=== PATIENT | male | born 1945 | race Caucasian/White ===

== ENCOUNTER 2022-12-30 17:13 | Inpatient (IN) ==
[2022-12-30 18:00] LABS: Basophils # (auto) 0.02 K/uL (0-0.2); Basophils % (auto) 0.2 %; Eosinophils # (auto) 0.02 K/uL (0-0.50); Eosinophils % (auto) 0.2 %; Hemoglobin 14.8 g/dl (14.0-18.0); Immature Granulocytes # (auto) 0.05 K/uL (0.01-0.20); Immature Granulocytes % (auto) 0.5 %; Lymphocytes # (auto) 1.58 K/uL (1.2-3.4); Lymphocytes % (auto) 16.6 %; Mean Corpuscular Hemoglobin 30.5 pg (25.0-34.0); Mean Corpuscular Hgb Conc 33.6 g/dL (32.0-36.0); Mean Corpuscular Volume 90.5 fL (80.0-100.0); Mean Platelet Volume 11.8 fL (9.4-12.4); Monocytes % (auto) 12.6 %; Neutrophils # (auto) 6.62 K/uL (1.40-6.50); Neutrophils % (auto) 69.9 %; Platelet Count 181 K/uL (130-400); RDW Coefficient of Variation 13.2 % (11.5-14.5); RDW Standard Deviation 43.9 fL (36.4-46.3); Red Blood Count 4.86 M/uL (4.70-6.10); White Blood Count 9.49 K/ul (4.8-10.8)
[2022-12-30] MEDS ORDERED: ACETAMINOPHEN 1,000 MG/100 ML VIAL IV STA (18:07)
[2022-12-30] MEDS ORDERED: SODIUM CHLORIDE 0.9% 1000ML 2,000 ML IV ONE (18:07)
[2022-12-30] MEDS ORDERED: SODIUM CHLORIDE 0.9% 1000ML 1,000 ML IV ONE (18:07)
[2022-12-30] MEDS ORDERED: ONDANSETRON INJ 2 MG/ML 2 ML VIAL IV STA (18:07)
[2022-12-30] MEDS ORDERED: PIPERACILLIN/TAZOBACTAM 4.5 GM/120 ML BAG IV ONE (18:07)
[2022-12-30] MEDS ORDERED: FAMOTIDINE 20MG IV PUSH 20 MG/5 ML SYR IV STA (18:07)
[2022-12-30 18:24] LABS: Albumin Level 3.9 gm/dl (3.4-5.0); BUN Creatinine Ratio 21.6 (10-20); Bilirubin Direct 0.2 mg/dl (0-0.2); Bilirubin,Total 0.6 mg/dl (0.2-1.0); Calcium 8.8 mg/dl (8.5-10.1); Creatinine Clr Calc Pharmacy 66.2 ml/min; Est GFR (African American) 80.6 ml/min; Est GFR (Non-African American) 69.6 ml/min; INR 2.1 (0.9-1.1); Magnesium 1.5 mg/dl (1.7-2.4); Phosphorus 2.6 mg/dl (2.5-4.9); Potassium 4.1 mmol/L (3.5-5.1); Prothrombin Time 21.5 Seconds (9.0-12.0); Total Protein 7.1 gm/dl (6.0-8.3); Troponin I High Sensitivity 19.6 pg/ml (0-20)
[2022-12-30 18:56] LABS: Adenovirus PCR Not Detected (NotDetected); Bordetella parapertussis PCR Not Detected (NotDetected); Bordetella pertussis PCR Not Detected (NotDetected); Chlamydia pneumoniae PCR Not Detected (NotDetected); Coronavirus 229E PCR Not Detected (NotDetected); Coronavirus CoV-2 (COVID19)PCR Not Detected (NotDetected); Coronavirus HKU1 PCR Not Detected (NotDetected); Coronavirus NL63 PCR Not Detected (NotDetected); Coronavirus OC43PCR Not Detected (NotDetected); Influenza A PCR Not Detected (NotDetected); Influenza B PCR Not Detected (NotDetected); Mycoplasma pneumoniae PCR Not Detected (NotDetected); Parainfluenza Virus 1 PCR Not Detected (NotDetected); Parainfluenza Virus 2 PCR Not Detected (NotDetected); Parainfluenza Virus 3 PCR Not Detected (NotDetected); Parainfluenza Virus 4 PCR Not Detected (NotDetected); Respiratory Syncytial VirusPCR Not Detected (NotDetected); Rhinovirus/Enterovirus PCR Not Detected (NotDetected)
[2022-12-30] MEDS: MAGNESIUM SULFATE / D5W 1 GM/100 ML BAG IV SCH ×2 (19:06→20:42)
[2022-12-30 19:10] LABS: Human Metapneumovirus PCR DETECTED (NotDetected)
--- NOTE | 2022-12-30 19:14 | XRay Report ---
SINGLE VIEW CHEST CLINICAL HISTORY: Sepsis. FINDINGS: An AP, portable, upright chest radiograph is compared to study dated 03/21/2018 and correlat ed with chest CT dated 03/17/2018. The heart is enlarged noting atherosclerotic calcification of the th oracic aorta. The pulmonary vasculature is noncongested. Emphysema and chronic interstitial thickenin g is similar to previous. Scarring/atelectasis is noted at the lung bases. No airspace consolidation or large pleural effusion is identified. No pneumothorax is seen. 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 The bony thorax is grossly intact. IMPRESSION: Cardiomegaly and emphysema with no acute cardiopulmonary abnormality identified. ACT 112: Negative or not required by law. Electronically signed by: Alverto Tello M.D. 12/30/2022 7:13 PM
[2022-12-30 19:26] LABS: Appearance Urine Clear (Clear); Bacteria Urine Automated Negative (Negative); Bilirubin Urine Negative (Negative); Blood Urine Trace (Negative); Color Urine Yellow; Glucose Urine UA 3+ (Negative); Ketones Urine 2+ (Negative); Leukocyte Esterase Urine Negative (Negative); Nitrite Urine Negative (Negative); Protein Urine 2+ (Negative); RBC Urine Automated 0-4 /hpf (0-4); Specific Gravity Urine 1.024 (1.000-1.030); Urobilinogen Urine Negative (Negative)
[2022-12-30] MEDS ORDERED: OPTIRAY 350 100ml IV ONE (19:41)
[2022-12-30] MEDS ORDERED: LEVALBUTEROL HCL 0.63 MG/3 ML NEB NEB STA (20:27)
--- NOTE | 2022-12-30 20:39 | Emergency Department Note ---
Impression & Plan Acute respiratory failure with hypoxia, Human metapneumovirus (hMPV) pneumonia, Pulmonary edema, Atrial fibrillation with rapid ventricular response ED Provider Note NAME: AROLDO SILVERMAN AGE: 77 SEX: M ARRIVES VIA: Ambulance INFORMANT: Patient ED PROVIDER(S): Aric Mendez MD CHIEF COMPLAINT: SOB, fever, cough, referred. PLAN: Disposition: Admit MEDICAL DECISION MAKING: The patient is a pleasant 77-year-old gentleman with a past medical history of atrial fibrillation on warfarin, hypertension, hyperlipidemia, diabetes, PMR on chronic steroids who presents to the emergency department via EMS From his PCPs office for evaluation of nausea and vomiting, cough, congestion and chest tightness has been ongoing for the past several days where he had decreased oral intake and inability to keep his medications down due to nausea and vomiting. He has had a 12 pound weight loss since his last PCP visit. He was noted to be febrile and have an O2 saturation of 84% on room air placed on 6 L OxyMask. On arrival the patient is uncomfortable mild respiratory distress, afebrile with respiratory rate in the upper 20s, heart rate in the 110s in atrial fibrillation with O2 saturation mid 90s on 6 L oxy mask. He appears clinically dry lungs with wheezes and rhonchi of bilateral lung dao. Abdomen with mild epigastric discomfort without discrete tenderness. EKG demonstrates atrial fibrillation without overt acute ischemia. Chest x-ray was negative for acute cardiopulmonary process. WBC, H/H and platelets within normal limits. Chemistry without metabolic acidosis. Bicarbonate is 23. Anion gap 14. Initial lactic acid 2.6 however clear to 1.6 following IV fluid hydration. Magnesium 1.5 with repletion provided. LFTs unremarkable. High-sensitivity troponin 19.6, within normal limits. Procalcitonin is not elevated. UA with 2+ ketones consistent with the patient's clinically dry appearance. Otherwise no evidence of urinary infection. Respiratory viral panel was performed and was positive for human metapneumovirus. CT abdomen pelvis demonstrates bilateral lower lobe opacities consistent with pneumonia given the patient's presentation. Otherwise no acute intra-abdominal process. Patient did have some initial improvement following initial treatment with IV fluids, empiric Zosyn for septic presentation. However I was subsequently notified that the patient did have the development of increased respiratory distress with exam concerning for pulmonary edema. Upon my reevaluation the patient did have new rales of bilateral lung dao. I did perform a limited bedside ultrasound that also showed diffuse B-lines concerning for pulmonary edema. BiPAP was ordered for acute respiratory failure and Xopenex nebulizer for component of bronchospasm. Patient and family at the bedside agree with plan for admission for further management. [facility] who will [facility] the [facility] for [facility]. Triage Nursing notes reviewed and agree them. Prior/outside medical records reviewed Vital Signs: reviewed Differential diagnosis: Sepsis, UTI, pneumonia, metabolic, electrolyte abnormalities, cardiac sources, i ntracerebral event, toxicologic, neurologic, as well as other pathologies. ER treatment provided: See below. Diagnostics interpreted by me: ECG: Atrial fibrillation with RVR, 118 bpm, no overt ST elevation depression, QTc 487, QRS 92 Cardiac Monitoring: An order for continuous cardiac monitoring was placed and demonstrated atrial fibrillation, RVR, 118 bpm. No ectopy. Laboratory studies: See below Imaging studies: See below Consultation(s): Case was [facility]isco[facility], who will evaluate the patient for admission. HPI: The patient is a pleasant 77-year-old gentleman with a past medical history of atrial fibrillation on warfarin, hypertension, hyperlipidemia, diabetes, PMR on chronic steroids who presents to the emergency department via EMS From his PCPs office for evaluation of nausea and vomiting, cough, congestion and chest tightness has been ongoing for the past several days where he had decreased oral intake and inability to keep his medications down due to nausea and vomiting. He has had a 12 pound weight loss since his last PCP visit. He was noted to be febrile and have an O2 saturation of 84% on room air placed on 6 L OxyMask. ROS: See above HPI for pertinent positives & negatives. A total of 10 systems reviewed and were otherwise negative. VITALS:See Below PHYSICAL EXAMINATION: GENERAL: Awake, alert, uncomfortable-appearing, in no distress HENT: Normocephalic, atraumatic. Oropharynx with dry mucous membranes and otherwise unremarkable. EYES: Normal conjunctiva. Sclera non-icteric. NECK: Supple. No nuchal rigidity. FROM. No JVD. RESPIRATORY: Wheezes and rhonchi of bilateral lung dao. CARDIAC: Tachycardic rate, irregular rhythm. Extremities warm and well perfused. Pulses equal. ABDOMEN: Soft, non-distended. Mild epigastric discomfort without discrete tenderness to palpation. No rebound or guarding. No masses. RECTAL: Deferred. MUSCULOSKELETAL: Chest examination reveals no tenderness. The back is symmetrical on inspection without obvious abnormality. There is no CVA tenderness to palpation. No joint edema. LOWER EXTREMITIES: Calves are equal size bilaterally and non-tender. No edema. No discoloration. NEURO: Normal sensorium. No sensory or motor deficits noted. SKIN: Mild skin mottling and tenting. No rash or jaundice noted. ED COURSE: Critical Care: I have personally spent greater than 75 minutes of critical care time in the direct management of this patient. This includes bedside care, interpretation of diagnostic studies, and testing, discussion with consultants, patient, and family members, and other required patient management activities. This 75 minutes is in excess of all separately billable procedures. Aric Mendez MD Past Med/Surg History Medical History Atrial fibrillation follows with Dr Sebastian, no cardioversion. managed with medications. Chronic steroid use Diabetes mellitus, type 2 NIDDM Hyperlipidemia Hypertension On anticoagulant therapy Osteoarthritis Polymyalgia rheumatica takes prednisone BID to manage. Surgical History H/O eye surgery bilateral tear duct procedures to place a "drain" History of arthroscopy of left shoulder History of cataract surgery History of colonoscopy S/P left knee arthroscopy Family History Other No family history of adverse response to anesthesia Social History Smoking Status: Former smoker Second Hand Exposure: No; Do You Dip or Chew Tobacco: No; Tobacco Cessation Education Requested by Patient: No Hx Alcohol Use: Yes Alcohol type: beer Hx Substance Use: No Preferred Language: Nigerien Communication Ability: Effective [employer] Required: No Beliefs That Will Affect Care: None marital status: Current Living Situation: Spouse Other Information That Helps Us Care for You: No Feels Safe at Home: Yes Safety Concerns: Feels Safe At This Time Assistive Devices: Glasses Allergies Allergies Allergy/AdvReac Type Severity Reaction Status Date / Time oxycodone Allergy Intermediate WHEEZING Verified 12/30/22 20:14 Home Meds Home Medications Medication Instructions Recorded Confirmed alendronate 70 mg tablet (Fosamax) 70 mg PO WK 12/25/21 12/30/22 atenolol 50 mg tablet 50 mg PO QAM 12/25/21 12/30/22 atorvastatin 20 mg tablet (Lipitor) 20 mg PO PM 12/25/21 12/30/22 cholecalciferol (vitamin D3) 50 50 mcg PO QAM 12/25/21 12/30/22 mcg (2,000 unit) tablet (Vitamin D3) duloxetine 20 mg capsule,delayed 20 mg PO QPM 12/25/21 12/30/22 release enalapril maleate 2.5 mg tablet 5 mg PO QAM 12/25/21 12/30/22 glipizide 10 mg tablet 20 mg PO BID 12/25/21 12/30/22 metformin 1,000 mg tablet 1,000 mg PO BID 12/25/21 12/30/22 prednisone 5 mg tablet 5 mg PO BID 12/25/21 12/30/22 warfarin 5 mg tablet 5 mg PO [id number] 12/25/21 12/30/22 warfarin 5 mg tablet 7.5 mg PO WK 12/25/21 12/30/22 acetaminophen 500 mg tablet 500 - 1,000 mg PO Q6H PRN Pain 12/30/22 12/30/22 (Tylenol Extra Strength) betamethasone valerate 0.1 % 1 applic topical BID PRN NEEDED 12/30/22 12/30/22 topical ointment dulaglutide 3 mg/0.5 mL 3 mg subcut WK 12/30/22 12/30/22 [facility] Results & Data (ED) Vital Signs Vital Signs - 24 hr 12/30/22 17:13 12/30/22 17:13 12/30/22 17:15 Temperature 36.8 C Temperature Source Oral Pulse Rate 118 H Pulse Rate [Right Finger] Respiratory Rate 24 Respiratory Effort / Characteristics Respiratory Depth Respiratory Pattern Blood Pressure 190/124 H Blood Pressure [Right Arm] Blood Pressure Mean 146 Blood Pressure Mean [Right Arm] Pulse Oximetry 86 L 84 L 97 Oxygen Delivery Method Room Air Room Air Nasal Cannula Oxygen Flow Rate 3 Fraction of Inspired Oxygen Sepsis Recent Fever Within 48 Hours Yes Sepsis New/Unexplained Change in Mental Status N/A Sepsis Action Taken by Nursing Physician Notified 12/30/22 18:11 12/30/22 19:12 12/30/22 19:16 Temperature Temperature Source Pulse Rate Pulse Rate [Right Finger] 110 H 117 H Respiratory Rate 24 27 H Respiratory Effort / Characteristics Non-Labored Spontaneous Respiratory Depth Normal Respiratory Pattern Regular Blood Pressure Blood Pressure [Right Arm] 194/96 H 138/78 Blood Pressure Mean Blood Pressure Mean [Right Arm] 128 98 Pulse Oximetry 93 94 93 Oxygen Delivery Method Nasal Cannula Nasal Cannula Nasal Cannula Oxygen Flow Rate 3 3 3 Fraction of Inspired Oxygen Sepsis Recent Fever Within 48 Hours Sepsis New/Unexplained Change in Mental Status Sepsis Action Taken by Nursing 12/30/22 20:30 12/30/22 21:19 Temperature Temperature Source Pulse Rate 115 H Pulse Rate [Right Finger] Respiratory Rate 31 H Respiratory Effort / Characteristics Non-Labored Spontaneous Respiratory Depth Normal Respiratory Pattern Tachypnea Blood Pressure Blood Pressure [Right Arm] Blood Pressure Mean Blood Pressure Mean [Right Arm] Pulse Oximetry 96 95 Oxygen Delivery Method Oxymask Oxygen Flow Rate 6 Fraction of Inspired Oxygen 40 Sepsis Recent Fever Within 48 Hours Sepsis New/Unexplained Change in Mental Status Sepsis Action Taken by Nursing Laboratory Data Attestation: I reviewed the patient's lab results. 12/30/22 17:19 12/30/22 17:19 Lab Results 12/30/22 12/30/22 12/30/22 Range/Units 17:19 17:19 17:19 WBC 9.49 (4.8-10.8) K/ul RBC 4.86 (4.70-6.10) M/uL Hgb 14.8 (14.0-18.0) g/dl Hct 44.0 (42.0-52.0) % MCV 90.5 (80.0-100.0) fL MCH 30.5 (25.0-34.0) pg MCHC 33.6 (32.0-36.0) g/dL RDW Std Deviation 43.9 (36.4-46.3) fL RDW Coeff of Roverto 13.2 (11.5-14.5) % Plt Count 181 (130-400) K/uL MPV 11.8 (9.4-12.4) fL Immature Gran % (Auto) 0.5 % Neut % (Auto) 69.9 % Lymph % (Auto) 16.6 % [place] % (Auto) 12.6 % Eos % (Auto) 0.2 % Baso % (Auto) 0.2 % Neut # (Auto) 6.62 H (1.40-6.50) K/uL Lymph # (Auto) 1.58 (1.2-3.4) K/uL [place] # (Auto) 1.20 H (0.11-0.59) K/uL Eos # (Auto) 0.02 (0-0.50) K/uL Baso # (Auto) 0.02 (0-0.2) K/uL Immature Gran # (Auto) 0.05 (0.01-0.20) K/uL PT (9.0-12.0) Seconds INR (0.9-1.1) Sodium 133 L (136-145) mmol/L Potassium 4.1 (3.5-5.1) mmol/L Chloride 96 L (98-107) mmol/L Carbon Dioxide 23 (21-32) mmol/L Anion Gap 14 H (3-11) BUN 22 (6-23) mg/dl Creatinine 1.02 (0.6-1.4) mg/dl Est Cr Clr Drug Dosing 66.2 ml/min Est GFR ( Amer) 80.6 ml/min Est GFR (Non-Af Amer) 69.6 ml/min BUN/Creatinine Ratio 21.6 H (10-20) Glucose 304 H* (70-99(Fasting)) mg/dl Lactate (0.4-2.0) mmol/L Calcium 8.8 (8.5-10.1) mg/dl Phosphorus 2.6 (2.5-4.9) mg/dl Magnesium 1.5 L (1.7-2.4) mg/dl Total Bilirubin 0.6 (0.2-1.0) mg/dl Direct Bilirubin 0.2 (0-0.2) mg/dl AST 25 (13-39) U/L ALT 27 (7-52) U/L Alkaline Phosphatase 36 (34-104) U/L Troponin I High Sens 19.6 (0-20) pg/ml B-Natriuretic Peptide (0-100) pg/ml Total Protein 7.1 (6.0-8.3) gm/dl Albumin 3.9 (3.4-5.0) gm/dl Lipase (11-82) U/L Procalcitonin 0.14 (0-0.5) ng/ml Urine Color Urine Appearance (Clear) Urine pH (4.5-7.5) Ur Specific [place] (1.000-1.030) Urine Protein (Negative) Urine Glucose (UA) (Negative) Urine Ketones (Negative) Urine Blood (Negative) Urine Nitrite (Negative) Urine Bilirubin (Negative) Urine Urobilinogen (Negative) Ur Leukocyte Esterase (Negative) Urine WBC (Auto) (0-5) /hpf Urine RBC (Auto) (0-4) /hpf U Hyaline Cast (Auto) (0-5) /lpf U Epithel Cells (Auto) (0-5) /lpf Urine Bacteria (Auto) (Negative) Adenovirus (PCR) (NotDetected) B. pertussis DNA (PCR) (NotDetected) B.parapertussis DNA PCR (NotDetected) C. pneumoniae DNA (PCR) (NotDetected) Coronavirus OC43 (PCR) (NotDetected) Coronavirus HKU1 (PCR) (NotDetected) Coronavirus 229E (PCR) (NotDetected) SARS-CoV-2 (PCR) (NotDetected) Coronavirus NL63 (PCR) (NotDetected) Human Metapneumovir PCR (NotDetected) Influenza Type A (PCR) (NotDetected) Influenza Type B (PCR) (NotDetected) M. pneumoniae (PCR) (NotDetected) Parainfluenza 1 (PCR) (NotDetected) Parainfluenza 2 (PCR) (NotDetected) Parainfluenza 3 (PCR) (NotDetected) Parainfluenza 4 (PCR) (NotDetected) RSV (PCR) (NotDetected) Entero/Rhino (PCR) (NotDetected) 12/30/22 12/30/22 12/30/22 Range/Units 17:19 17:37 17:48 WBC (4.8-10.8) K/ul RBC (4.70-6.10) M/uL Hgb (14.0-18.0) g/dl Hct (42.0-52.0) % MCV (80.0-100.0) fL MCH (25.0-34.0) pg MCHC (32.0-36.0) g/dL RDW Std Deviation (36.4-46.3) fL RDW Coeff of Roverto (11.5-14.5) % Plt Count (130-400) K/uL MPV (9.4-12.4) fL Immature Gran % (Auto) % Neut % (Auto) % Lymph % (Auto) % [place] % (Auto) % Eos % (Auto) % Baso % (Auto) % Neut # (Auto) (1.40-6.50) K/uL Lymph # (Auto) (1.2-3.4) K/uL [place] # (Auto) (0.11-0.59) K/uL Eos # (Auto) (0-0.50) K/uL Baso # (Auto) (0-0.2) K/uL Immature Gran # (Auto) (0.01-0.20) K/uL PT 21.5 H (9.0-12.0) Seconds INR 2.1 H (0.9-1.1) Sodium (136-145) mmol/L Potassium (3.5-5.1) mmol/L Chloride (98-107) mmol/L Carbon Dioxide (21-32) mmol/L Anion Gap (3-11) BUN (6-23) mg/dl Creatinine (0.6-1.4) mg/dl Est Cr Clr Drug Dosing ml/min Est GFR ( Amer) ml/min Est GFR (Non-Af Amer) ml/min BUN/Creatinine Ratio (10-20) Glucose (70-99(Fasting)) mg/dl Lactate 2.6 H* (0.4-2.0) mmol/L Calcium (8.5-10.1) mg/dl Phosphorus (2.5-4.9) mg/dl Magnesium (1.7-2.4) mg/dl Total Bilirubin (0.2-1.0) mg/dl Direct Bilirubin (0-0.2) mg/dl AST (13-39) U/L ALT (7-52) U/L Alkaline Phosphatase (34-104) U/L Troponin I High Sens (0-20) pg/ml B-Natriuretic Peptide (0-100) pg/ml Total Protein (6.0-8.3) gm/dl Albumin (3.4-5.0) gm/dl Lipase (11-82) U/L Procalcitonin (0-0.5) ng/ml Urine Color Urine Appearance (Clear) Urine pH (4.5-7.5) Ur Specific [place] (1.000-1.030) Urine Protein (Negative) Urine Glucose (UA) (Negative) Urine Ketones (Negative) Urine Blood (Negative) Urine Nitrite (Negative) Urine Bilirubin (Negative) Urine Urobilinogen (Negative) Ur Leukocyte Esterase (Negative) Urine WBC (Auto) (0-5) /hpf Urine RBC (Auto) (0-4) /hpf U Hyaline Cast (Auto) (0-5) /lpf U Epithel Cells (Auto) (0-5) /lpf Urine Bacteria (Auto) (Negative) Adenovirus (PCR) Not Detected (NotDetected) B. pertussis DNA (PCR) Not Detected (NotDetected) B.parapertussis DNA PCR Not Detected (NotDetected) C. pneumoniae DNA (PCR) Not Detected (NotDetected) Coronavirus OC43 (PCR) Not Detected (NotDetected) Coronavirus HKU1 (PCR) Not Detected (NotDetected) Coronavirus 229E (PCR) Not Detected (NotDetected) SARS-CoV-2 (PCR) Not Detected (NotDetected) Coronavirus NL63 (PCR) Not Detected (NotDetected) Human Metapneumovir PCR DETECTED A* (NotDetected) Influenza Type A (PCR) Not Detected (NotDetected) Influenza Type B (PCR) Not Detected (NotDetected) M. pneumoniae (PCR) Not Detected (NotDetected) Parainfluenza 1 (PCR) Not Detected (NotDetected) Parainfluenza 2 (PCR) Not Detected (NotDetected) Parainfluenza 3 (PCR) Not Detected (NotDetected) Parainfluenza 4 (PCR) Not Detected (NotDetected) RSV (PCR) Not Detected (NotDetected) Entero/Rhino (PCR) Not Detected (NotDetected) 03/21/23 03/21/23 03/21/23 Range/Units 18:49 20:02 20:52 WBC (4.8-10.8) K/ul RBC (4.70-6.10) M/uL Hgb (14.0-18.0) g/dl Hct (42.0-52.0) % MCV (80.0-100.0) fL MCH (25.0-34.0) pg MCHC (32.0-36.0) g/dL RDW Std Deviation (36.4-46.3) fL RDW Coeff of Roverto (11.5-14.5) % Plt Count (130-400) K/uL MPV (9.4-12.4) fL Immature Gran % (Auto) % Neut % (Auto) % Lymph % (Auto) % [place] % (Auto) % Eos % (Auto) % Baso % (Auto) % Neut # (Auto) (1.40-6.50) K/uL Lymph # (Auto) (1.2-3.4) K/uL [place] # (Auto) (0.11-0.59) K/uL Eos # (Auto) (0-0.50) K/uL Baso # (Auto) (0-0.2) K/uL Immature Gran # (Auto) (0.01-0.20) K/uL PT (9.0-12.0) Seconds INR (0.9-1.1) Sodium (136-145) mmol/L Potassium (3.5-5.1) mmol/L Chloride (98-107) mmol/L Carbon Dioxide (21-32) mmol/L Anion Gap (3-11) BUN (6-23) mg/dl Creatinine (0.6-1.4) mg/dl Est Cr Clr Drug Dosing ml/min Est GFR ( Amer) ml/min Est GFR (Non-Af Amer) ml/min BUN/Creatinine Ratio (10-20) Glucose (70-99(Fasting)) mg/dl Lactate 1.6 (0.4-2.0) mmol/L Calcium (8.5-10.1) mg/dl Phosphorus (2.5-4.9) mg/dl Magnesium (1.7-2.4) mg/dl Total Bilirubin (0.2-1.0) mg/dl Direct Bilirubin (0-0.2) mg/dl AST (13-39) U/L ALT (7-52) U/L Alkaline Phosphatase (34-104) U/L Troponin I High Sens (0-20) pg/ml B-Natriuretic Peptide 96 (0-100) pg/ml Total Protein (6.0-8.3) gm/dl Albumin (3.4-5.0) gm/dl Lipase (11-82) U/L Procalcitonin (0-0.5) ng/ml Urine Color Yellow Urine Appearance Clear (Clear) Urine pH 6.0 (4.5-7.5) Ur Specific [place] 1.024 (1.000-1.030) Urine Protein 2+ H (Negative) Urine Glucose (UA) 3+ H (Negative) Urine Ketones 2+ H (Negative) Urine Blood Trace H (Negative) Urine Nitrite Negative (Negative) Urine Bilirubin Negative (Negative) Urine Urobilinogen Negative (Negative) Ur Leukocyte Esterase Negative (Negative) Urine WBC (Auto) 1-5 (0-5) /hpf Urine RBC (Auto) 0-4 (0-4) /hpf U Hyaline Cast (Auto) 1-5 (0-5) /lpf U Epithel Cells (Auto) 5-10 H (0-5) /lpf Urine Bacteria (Auto) Negative (Negative) Adenovirus (PCR) (NotDetected) B. pertussis DNA (PCR) (NotDetected) B.parapertussis DNA PCR (NotDetected) C. pneumoniae DNA (PCR) (NotDetected) Coronavirus OC43 (PCR) (NotDetected) Coronavirus HKU1 (PCR) (NotDetected) Coronavirus 229E (PCR) (NotDetected) SARS-CoV-2 (PCR) (NotDetected) Coronavirus NL63 (PCR) (NotDetected) Human Metapneumovir PCR (NotDetected) Influenza Type A (PCR) (NotDetected) Influenza Type B (PCR) (NotDetected) M. pneumoniae (PCR) (NotDetected) Parainfluenza 1 (PCR) (NotDetected) Parainfluenza 2 (PCR) (NotDetected) Parainfluenza 3 (PCR) (NotDetected) Parainfluenza 4 (PCR) (NotDetected) RSV (PCR) (NotDetected) Entero/Rhino (PCR) (NotDetected) 12/30/22 Range/Units 20:52 WBC (4.8-10.8) K/ul RBC (4.70-6.10) M/uL Hgb (14.0-18.0) g/dl Hct (42.0-52.0) % MCV (80.0-100.0) fL MCH (25.0-34.0) pg MCHC (32.0-36.0) g/dL RDW Std Deviation (36.4-46.3) fL RDW Coeff of Roverto (11.5-14.5) % Plt Count (130-400) K/uL MPV (9.4-12.4) fL Immature Gran % (Auto) % Neut % (Auto) % Lymph % (Auto) % [place] % (Auto) % Eos % (Auto) % Baso % (Auto) % Neut # (Auto) (1.40-6.50) K/uL Lymph # (Auto) (1.2-3.4) K/uL [place] # (Auto) (0.11-0.59) K/uL Eos # (Auto) (0-0.50) K/uL Baso # (Auto) (0-0.2) K/uL Immature Gran # (Auto) (0.01-0.20) K/uL PT (9.0-12.0) Seconds INR (0.9-1.1) Sodium (136-145) mmol/L Potassium (3.5-5.1) mmol/L Chloride (98-107) mmol/L Carbon Dioxide (21-32) mmol/L Anion Gap (3-11) BUN (6-23) mg/dl Creatinine (0.6-1.4) mg/dl Est Cr Clr Drug Dosing ml/min Est GFR ( Amer) ml/min Est GFR (Non-Af Amer) ml/min BUN/Creatinine Ratio (10-20) Glucose (70-99(Fasting)) mg/dl Lactate (0.4-2.0) mmol/L Calcium (8.5-10.1) mg/dl Phosphorus (2.5-4.9) mg/dl Magnesium (1.7-2.4) mg/dl Total Bilirubin (0.2-1.0) mg/dl Direct Bilirubin (0-0.2) mg/dl AST (13-39) U/L ALT (7-52) U/L Alkaline Phosphatase (34-104) U/L Troponin I High Sens (0-20) pg/ml B-Natriuretic Peptide (0-100) pg/ml Total Protein (6.0-8.3) gm/dl Albumin (3.4-5.0) gm/dl Lipase 12 (11-82) U/L Procalcitonin (0-0.5) ng/ml Urine Color Urine Appearance (Clear) Urine pH (4.5-7.5) Ur Specific [place] (1.000-1.030) Urine Protein (Negative) Urine Glucose (UA) (Negative) Urine Ketones (Negative) Urine Blood (Negative) Urine Nitrite (Negative) Urine Bilirubin (Negative) Urine Urobilinogen (Negative) Ur Leukocyte Esterase (Negative) Urine WBC (Auto) (0-5) /hpf Urine RBC (Auto) (0-4) /hpf U Hyaline Cast (Auto) (0-5) /lpf U Epithel Cells (Auto) (0-5) /lpf Urine Bacteria (Auto) (Negative) Adenovirus (PCR) (NotDetected) B. pertussis DNA (PCR) (NotDetected) B.parapertussis DNA PCR (NotDetected) C. pneumoniae DNA (PCR) (NotDetected) Coronavirus OC43 (PCR) (NotDetected) Coronavirus HKU1 (PCR) (NotDetected) Coronavirus 229E (PCR) (NotDetected) SARS-CoV-2 (PCR) (NotDetected) Coronavirus NL63 (PCR) (NotDetected) Human Metapneumovir PCR (NotDetected) Influenza Type A (PCR) (NotDetected) Influenza Type B (PCR) (NotDetected) M. pneumoniae (PCR) (NotDetected) Parainfluenza 1 (PCR) (NotDetected) Parainfluenza 2 (PCR) (NotDetected) Parainfluenza 3 (PCR) (NotDetected) Parainfluenza 4 (PCR) (NotDetected) RSV (PCR) (NotDetected) Entero/Rhino (PCR) (NotDetected) Administered Medications Doxycycline Hyclate 100 mg/ (Dextrose) 110 mls @ 50 mls/hr IV Q12H [facility] Stop: 01/07/23 00:59 Last Infusion: 12/31/22 02:43 Dose: 0 mls/hr Documented By: Admin: 12/31/22 00:39 Dose: 50 mls/hr Documented By: BETO Insulin Aspart (Insulin Aspart Per Unit) 0 units SC ACHS [facility] Stop: 01/30/23 00:29 Last Admin: 12/31/22 00:33 Dose: 3 units Documented By: BETO Co-signed By: CHRISTAL Insulin Glargine (Lantus Per Unit Charge) 5 units SQ BID [facility] Stop: 01/30/23 00:09 Last Admin: 12/31/22 00:33 Dose: 5 units Documented By: BETO Co-signed By: CHRISTAL Ipratropium [place] (Ipratropium [place] Neb Soln 0.02% 2.5 Ml Vial) 0.5 mg INH QIDR [facility] Stop: 01/30/23 00:09 Last Admin: 12/31/22 00:33 Dose: Not Given Documented By: SHARI Levalbuterol HCl (Levalbuterol 1.25mg/0.5ml Neb) 1.25 mg INH QIDR [facility] Stop: 01/30/23 00:09 Last Admin: 12/31/22 00:33 Dose: Not Given Documented By: NDC Discontinued Medications Sodium Chloride (Nss 1000ml) 2,000 mls @ 999 mls/hr IV .Q2H1M ONE Stop: 12/30/22 20:07 Last Infusion: 12/30/22 20:28 Dose: 999 mls/hr Documented By: Admin: 12/30/22 18:17 Dose: 999 mls/hr Documented By: BRIDGETT Sodium Chloride (Nss 1000ml) 1,000 mls @ 999 mls/hr IV .Q1H1M ONE Stop: 12/30/22 19:07 Last Infusion: 12/30/22 20:04 Dose: 0 mls/hr Documented By: Admin: 12/30/22 19:03 Dose: 999 mls/hr Documented By: NRB Acetaminophen (Ofirmev) 1,000 mg in 100 mls @ 400 mls/hr IV NOW STA Stop: 12/30/22 18:21 Last Infusion: 12/30/22 19:02 Dose: 0 mls/hr Documented By: Admin: 12/30/22 18:17 Dose: 400 mls/hr Documented By: BRIDGETT Famotidine (Pepcid 20mg Iv Push) 20 mg in 5 mls @ 2.5 mls/min IV NOW STA Stop: 12/30/22 18:08 Last Admin: 12/30/22 18:17 Dose: 2.5 mls/min Documented By: BRIDGETT Piperacillin Sod/Tazobactam Sod (Zosyn) 4.5 gm in 120 mls @ 240 mls/hr IV NOW ONE Stop: 12/30/22 18:36 Last Infusion: 12/30/22 18:47 Dose: 0 mls/hr Documented By: Admin: 12/30/22 18:17 Dose: 240 mls/hr Documented By: BRIDGETT Magnesium Sulfate/Dextrose (Magnesium Sulfate / D5w) 1 gm in 100 mls @ 100 mls/hr IV Q1H [facility] Stop: 12/30/22 21:01 Last Infusion: 12/30/22 21:42 Dose: 0 mls/hr Documented By: Admin: 12/30/22 20:42 Dose: 100 mls/hr Documented By: Infusion: 12/30/22 20:06 Dose: 0 mls/hr Documented By: Admin: 12/30/22 19:06 Dose: 100 mls/hr Documented By: GANESH Ioversol (Optiray 350 100ml) 90 ml IV ONCE ONE Stop: 12/30/22 19:42 Last Admin: 12/30/22 19:42 Dose: 90 ml Documented By: ZAC Levalbuterol HCl (Levalbuterol Hcl 0.63 Mg/3 Ml Neb) 0.63 mg NEB NOW STA; Protocol Stop: 12/30/22 20:28 Last Admin: 12/30/22 21:51 Dose: 0.63 mg Documented By: SHARI Methylprednisolone (Methylprednisolone 125 Mg/2 Ml Vial) 60 mg IV NOW STA Stop: 12/30/22 21:40 Last Admin: 12/30/22 22:02 Dose: 60 mg Documented By: GANESH Ondansetron HCl (Ondansetron Inj 2 Mg/Ml 2 Ml Vial) 4 mg IV NOW STA Stop: 12/30/22 18:08 Last Admin: 12/30/22 18:17 Dose: 4 mg Documented By: BRIDGETT Imaging Data Radiologist's Impression: Chest X-Ray 12/30/22 17:29 SINGLE VIEW CHEST CLINICAL HISTORY: Sepsis. FINDINGS: An AP, portable, upright chest radiograph is compared to study dated 03/21/2018 and correlated with chest CT dated 03/17/2018. The heart is enlarged noting atherosclerotic calcification of the thoracic aorta. The pulmonary vasculature is noncongested. Emphysema and chronic interstitial thickening is similar to previous. Scarring/atelectasis is noted at the lung bases. No airspace consolidation or large pleural effusion is identified. No pneumothorax is seen. The skeletal structures are osteopenic. The bony thorax is grossly intact. IMPRESSION: Cardiomegaly and emphysema with no acute cardiopulmonary abnormality identified. ACT 112: Negative or not required by law. Electronically signed by: Alverto Tello M.D. 12/30/2022 7:13 PM Abdomen/Pelvis CT 12/30/22 18:07 Exam(s): CT ABDOMEN + PELVIS With Contrast IV Amt: 90 ml optiray EXAM: CT Abdomen and Pelvis With Intravenous Contrast CLINICAL HISTORY: Reason for exam: sepsis, vomiting. TECHNIQUE: Axial computed tomography images of the abdomen and pelvis with intravenous contrast. CTDI is 24.36 mGy and DLP is 1232.74 mGy-cm. Automated exposure control was utilized for the study. A dose lowering technique was utilized adhering to the principles of ALARA. CONTRAST: Patient received 90 ml optiray of IV contrast COMPARISON: CT abdomen and pelvis 01/13/2015. FINDINGS: Artifacts: Examination is degraded by extensive patient motion. Lung bases: Opacities in the lungs. ABDOMEN: Liver: Hepatic steatosis. Gallbladder and bile ducts: Unremarkable. No calcified stones. No ductal dilation. Pancreas: Unremarkable. No mass. No ductal dilation. Spleen: Unremarkable. No splenomegaly. Adrenals: Unremarkable. No mass. Kidneys and ureters: Perinephric stranding, unchanged from prior examination. No hydronephrosis. Stomach and bowel: Moderate colonic stool burden. No obstruction. No mucosal thickening. PELVIS: Appendix: No findings to suggest acute appendicitis. Bladder: Unremarkable. No mass. Reproductive: Unremarkable as visualized. ABDOMEN and PELVIS: Intraperitoneal space: Unremarkable. No free air. No significant fluid collection. Bones/joints: Degenerative change throughout the spine. No acute fracture. No dislocation. Soft tissues: Unremarkable. Vasculature: Atherosclerotic calcifications in the abdominal aorta and branches. No abdominal aortic aneurysm. Lymph nodes: Unremarkable. No enlarged lymph nodes. IMPRESSION: 1. Opacities in the lungs. This may represent pneumonia in appropriate clinical scenario. 2. Moderate colonic stool burden. Recommend correlation for constipation. 3. Hepatic steatosis. Electronically signed by: Jermaine Yang MD 12/30/22 20:51 PM Discharge Plan Visit Data Chief Complaint: Illness Stated Complaint: N/V, SOB ED Provider: Aric Mendez Discharge Problem: Acute respiratory failure with hypoxia, Human metapneumovirus (hMPV) pneumonia, Pulmonary edema, Atrial fibrillation with rapid ventricular response Patient Disposition: Admitted As Inpatient Discharge Instructions Interventions: ED Discharge Assessment Last Done: 12/30/22 23:53
--- NOTE | 2022-12-30 20:52 | CT Scan Report ---
Exam(s): CT ABDOMEN + PELVIS With Contrast IV Amt: 90 ml optiray EXAM: CT Abdomen and Pelvis With Intravenous Contrast CLINICAL HISTORY: Reason for exam: sepsis, vomiting. TECHNIQUE: Axial computed tomography images of the abdomen and pelvis with intravenous contrast. CTDI is 24.36 mGy and DLP is 1232.74 mGy-cm. Automated exposure control was utilized for the study. A dose lowering technique was utilized adhering to the principles of ALARA. CONTRAST: Patient received 90 ml optiray of IV contrast COMPARISON: CT abdomen and pelvis 01/13/2015. FINDINGS: Artifacts: Examination is degraded by extensive patient motion. Lung bases: Opacities in the lungs. ABDOMEN: Liver: Hepatic steatosis. Gallbladder and bile ducts: Unremarkable. No calcified stones. No ductal dilation. Pancreas: Unremarkable. No mass. No ductal dilation. Spleen: Unremarkable. No splenomegaly. Adrenals: Unremarkable. No mass. Kidneys and ureters: Perinephric stranding, unchanged from prior examination. No hydronephrosis. Stomach and bowel: Moderate colonic stool burden. No obstruction. No mucosal thickening. PELVIS: Appendix: No findings to suggest acute appendicitis. Bladder: Unremarkable. No mass. Reproductive: Unremarkable as visualized. ABDOMEN and PELVIS: Intraperitoneal space: Unremarkable. No free air. No significant fluid collection. Bones/joints: Degenerative change throughout the spine. No acute fracture. No dislocation. Soft tissues: Unremarkable. Vasculature: Atherosclerotic calcifications in the abdominal aorta and branches. No abdominal aortic aneurysm. Lymph nodes: Unremarkable. No enlarged lymph nodes. IMPRESSION: 1. Opacities in the lungs. This may represent pneumonia in appropriate clinical scenario. 2. Moderate colonic stool burden. Recommend correlation for constipation. 3. Hepatic steatosis. Electronically signed by: Jermaine Yang MD 12/30/22 20:51 PM
[2022-12-30] MEDS ORDERED: methylPREDNISolone 125 MG/2 ML VIAL IV STA (21:39)
--- NOTE | 2022-12-31 00:08 | History and Physical Report ---
DATE OF ADMISSION: 12/30/2022. CHIEF COMPLAINT: Shortness of breath. HISTORY OF PRESENT ILLNESS: A 77-year-old male with past medical history significant for type 2 diabetes, hyperlipidemia, diabetic retinopathy, both eyes; history of permanent atrial fibrillation, hypertension, polymyalgia rheumatica, steroid-induced osteoporosis, presents with shortness of breath and cough. The patient's is in the room. As per since last Thursday, the patient started developing cough, bringing up some yellowish phlegm and fever, and short of breath and last night, his temperature was 102, went to PCP's office today . Having poor appetite and today morning has nausea, vomiting and his heart rate was high when they are in the PCP's office and because he was volume depleted with nausea, vomiting, he was advised to come to the ER. In the ER when he came in, he was on 6 liters of oxygen. His lactic acid was elevated and he was tachycardic. Lactic acid was 2.6. He was given 2 liters of IV fluids, and became more short of breath requiring placement of BiPAP. Chest x- ray was done in the ER. It does not show any obvious infection. CT of abdomen and pelvis was done because of nausea and vomiting showing opacities in the lungs, may represent pneumonia in appropriate clinical settings, moderate colonic stool burden. Respiratory BioFire came back positive for metapneumovirus. The patient also has some rhonchi and wheezing on exam and the patient also has remote history of smoking, quit smoking in 1988, but prior to that smoked 1 pack a day for 30 years. Currently, he is placed on BiPAP, says after placing BiPAP, he is feeling better, but his chest hurts when he is coughing. His whole body hurts,has some belly discomfort. Normal bowel and bladder movements ALLERGIES: OXYCODONE. PAST MEDICAL HISTORY: As mentioned above. PAST SURGICAL HISTORY: Colonoscopy, exploration of tear ducts, knee arthroscopy, removal of nasal polyps, bilateral cataract surgery, repair of left rotator cuff. MEDICATIONS: The patient is on Tylenol Extra Strength 500-1000 mg p.o. q. 6 hours p.r.n., alendronate 70 mg p.o. weekly, atenolol 50 mg p.o. a.m., Lipitor 20 mg p.o. a.m., betamethasone topical b.i.d. p.r.n., vitamin D 50 mcg p.o. a.m., Trulicity 3 mg subcutaneous weekly, duloxetine 20 mg p.o. p.m., enalapril 5 mg p.o. a.m., glipizide 20 mg p.o. b.i.d., metformin 1000 mg p.o. b.i.d., prednisone 5 mg p.o. b.i.d., warfarin 5 mg p.o. 6 times a week and warfarin 7.5 mg p.o. one time a week. FAMILY HISTORY: Significant for father had heart failure with MO; brother had obesity; mother had stroke; sister has ovarian cancer. SOCIAL HISTORY: . Quit smoking in 1988, smoked 1 pack a day for 30 years. Alcohol occasional. No drug use. REVIEW OF SYSTEMS: As per HPI. Rest of the review of systems is negative. PHYSICAL EXAMINATION: GENERAL: The patient is of moderate build, not in acute distress. VITAL SIGNS: Temperature 36.8, pulse 102, respiratory rate 26, blood pressure 138/78, oxygen 95% on BiPAP. HEENT: Pupils equal, round and reactive to light. The patient has been placed on BiPAP. NECK: No obvious neck masses. CARDIOVASCULAR: S1 and S2 heard. Tachycardia. No murmurs. RESPIRATORY SYSTEM: Normal AP diameter. No accessory muscle use. Bilateral wheezing and rhonchi heard. ABDOMEN: Soft, bowel sounds present, nontender, no distention. CENTRAL NERVOUS SYSTEM: Alert and awake. Speech is okay. No obvious facial droop seen. Obeys commands. Moves extremities. EXTREMITIES: No obvious edema or erythema seen. LABORATORY DATA: WBC 9.4, hemoglobin 14.8, hematocrit 44, platelets 181. PT is 21.5, INR 2.1. Sodium 133, potassium 4.1, chloride 96, CO2 of 23, BUN 22, creatinine 1.2, serum glucose 204, lactate 1.6, calcium 8.8, phosphorus 2.6, magnesium 1.5, total bilirubin 0.6, direct bilirubin 0.2, AST 25, ALT 27, alkaline phosphatase 36. Troponin I high sensitivity 19.6. BNP 96. Procalcitonin 0.14. Lipase 12. Urinalysis, +2 ketones, +2 glucose. Respiratory BioFire positive for human metapneumovirus. IMAGING DATA: CT abdomen and pelvis shows opacities in the lungs, which may represent pneumonia in appropriate settings. Moderate stool burden. Chest x- ray, no acute findings. EKG: Atrial fibrillation with rapid ventricular respiratory rate of 118. Nonspecific T-wave abnormalities. ASSESSMENT AND PLAN: This is a 77-year-old male, presents with shortness of breath and acute respiratory distress. 1. Acute respiratory distress requiring BiPAP: When he came in, he was on 6 liters of oxygen. He has respiratory BioFire positive for human metapneumovirus, possible acute bronchitis,possible COPD exacerbation, history of smoking 30-pack year, but quit in 1988. On exam, has wheezing or rhonchi, .Starting on IV doxycycline, IV Solu-Medrol and nebs around the clock and p.r.n. Continue BiPAP for now. Closely monitor in the tele floor. We will also rule out CHFas he became more sob after 2 L fluid. Will get an echocardiogram. If respiratory symptoms are not improving, we will consider consulting Cardiology / Pulmonary. 2. History of atrial fibrillation. Continue atenolol with holding parameters. The patient is on Coumadin. INR is therapeutic at 2.1. 3. Hypertension: Continue atenolol with hold parameters. Holding Enalapril for now because of ongoing infection. We will monitor the blood pressure. 4. History of diabetes: Hold his glipizide, metformin. Placed on Lantus 5 units b.i.d. and insulin sliding scale. Follow HbA1c level. Follow the blood sugar closely as the patient is on IV steroids. 5. History of polymyalgia rheumatica: He is on prednisone at home. We will hold p.o. prednisone as the patient is currently getting IV steroids. 6. Deep venous thrombosis prophylaxis: On Coumadin, INR therapeutic. DISPOSITION: Closely monitor in tele floor. Level 1 full code. Expect to discharge home and follow with family doctor. Job ID: [id number] [facility]
[2022-12-31] MEDS ORDERED: LEVALBUTEROL HCL 1.25 MG/3 ML NEB NEB PRN (00:10)
[2022-12-31] MEDS ORDERED: BETAMETHASONE VAL 0.1% OINT 15 GM TUBE EXT PRN (00:10)
[2022-12-31] MEDS ORDERED: NITROGLYCERIN SL 0.4 MG/TAB TAB SL PRN (00:10)
[2022-12-31] MEDS ORDERED: GLUCOSE 10 TAB/TUBE PO PRN (00:10)
[2022-12-31] MEDS ORDERED: DEXTROSE 50% 50 ML SYRINGE IV PRN (00:10)
[2022-12-31] MEDS ORDERED: ONDANSETRON INJ 2 MG/ML 2 ML VIAL IV PRN (00:10)
[2022-12-31] MEDS ORDERED: LANTUS PER UNIT CHARGE SQ SCH ×4 (00:10→21:00)
[2022-12-31] MEDS ORDERED: GLUCAGON FOR INJ 1 MG VIAL SQ PRN (00:10)
[2022-12-31] MEDS ORDERED: CARBOHYDRATES FOR HYPOGLYCEMIA PO PRN (00:10)
[2022-12-31] MEDS ORDERED: GLUCOSE 40% GEL 15 GM TUBE PO PRN (00:10)
[2022-12-31] MEDS: INSULIN ASPART PER UNIT CHARGE SC SCH ×5 (00:33→20:13)
[2022-12-31] MEDS: LEVALBUTEROL 1.25MG/0.5ML NEB INH SCH ×6 (00:33→23:46)
[2022-12-31] MEDS: IPRATROPIUM BROMIDE NEB SOLN 0.02% 2.5 ML VIAL INH SCH ×6 (00:33→23:46)
[2022-12-31] MEDS: DOXYCYCLINE HYCLATE 100 MG in DEXTROSE 5% 100 ML IV SCH ×2 (00:39→13:51)
[2022-12-31 05:48] LABS: Hematocrit (blood only) 42.9 % (42.0-52.0); Mean Corpuscular Hemoglobin 30.7 pg (25.0-34.0); Mean Corpuscular Hgb Conc 32.6 g/dL (32.0-36.0); Mean Corpuscular Volume 94.1 fL (80.0-100.0); Mean Platelet Volume 11.1 fL (9.4-12.4); Platelet Count 166 K/uL (130-400); RDW Coefficient of Variation 13.2 % (11.5-14.5); RDW Standard Deviation 45.3 fL (36.4-46.3); Red Blood Count 4.56 M/uL (4.70-6.10); White Blood Count 10.35 K/ul (4.8-10.8)
[2022-12-31 06:01] LABS: Creatinine Clr Calc Pharmacy 56.7 ml/min; Est GFR (African American) 66.9 ml/min; Est GFR (Non-African American) 57.8 ml/min; Magnesium 2.1 mg/dl (1.7-2.4)
[2022-12-31] MEDS: ENOXAPARIN INJ 40 MG/0.4 ML SYR SQ SCH (06:01)
[2022-12-31 06:07] LABS: Basophils # (auto) 0.01 K/uL (0-0.2); Basophils % (auto) 0.1 %; Echinocytes 1+; Immature Granulocytes # (auto) 0.06 K/uL (0.01-0.20); Immature Granulocytes % (auto) 0.6 %; Lymphocytes # (auto) 0.36 K/uL (1.2-3.4); Lymphocytes % (auto) 3.5 %; Monocytes # (auto) 0.57 K/uL (0.11-0.59); Monocytes % (auto) 5.5 %; Neutrophils # (auto) 9.35 K/uL (1.40-6.50); Neutrophils % (auto) 90.3 %
[2022-12-31 06:09] LABS: Troponin I High Sensitivity 31.8 pg/ml (0-20)
[2022-12-31 06:13] LABS: INR 1.9 (0.9-1.1); Prothrombin Time 19.6 Seconds (9.0-12.0)
[2022-12-31] MEDS: CHOLECALCIFEROL 1,000 UNITS 25 MCG TAB PO SCH (08:10)
[2022-12-31] MEDS: methylPREDNISolone 40 MG in SYRINGE 0 ML IV SCH ×3 (08:11→20:16)
[2022-12-31] MEDS ORDERED: POLYETHYLENE (MIRALAX) 17 GM PACK PO PRN (08:29)
[2022-12-31] MEDS ORDERED: DOCUSATE SODIUM 100 MG CAP PO PRN (08:30)
[2022-12-31] MEDS ORDERED: ATENOLOL 50 MG TABLET PO SCH (09:00)
[2022-12-31] MEDS ORDERED: XOPENEX/ATROVENT 1.25mg/0.5MG NEB COMBO NEB SCH (09:00)
[2022-12-31] MEDS: ACETAMINOPHEN 325 MG TAB PO PRN (09:08)
[2022-12-31 09:21] LABS: Estimated Average Glucose 229 mg/dl; Hemoglobin A1C 9.6 % (4.5-5.6)
--- NOTE | 2022-12-31 12:00 | Electrocardiogram Report ---
Test Reason : Blood Pressure : / mmHG Vent. Rate : 118 BPM Atrial Rate : 079 BPM P-R Int : 000 ms QRS Dur : 092 ms QT Int : 348 ms P-R-T Axes : 000 003 002 degrees QTc Int : 487 ms Atrial fibrillation with rapid ventricular response and aberrant conduction Cannot rule out Inferior infarct (cited on or before 21-MAR-2018) Abnormal ECG When compared with ECG of 21-MAR-2018 15:39, Vent. rate has increased BY 42 BPM Nonspecific T wave abnormality has replaced inverted T waves in Inferior leads Confirmed by Brenden Shah ([id number]) on 12/31/2022 12:00:21 PM Referred By: REFERRED SELF Confirmed By:Marco Shah
[2022-12-31] MEDS ORDERED: LANTUS PER UNIT CHARGE SQ ONE (14:17)
[2022-12-31] MEDS ORDERED: WARFARIN SOD 7.5 MG TAB PO SCH (16:00)
[2022-12-31] MEDS ORDERED: WARFARIN SOD 5 MG TAB PO SCH (16:00)
--- NOTE | 2022-12-31 16:07 | Hospitalist Progress Note ---
Date of Service December 31, 2022 Assessment & Plan (1) Acute respiratory failure with hypoxia: Plan: Patient is a 77 yr male who presents with shortness of breath and acute respiratory distress. Acute respiratory failure with hypoxia Acute bronchitis likely secondary to metapneumovirus infection Possible underlying COPD with exacerbation (H/O [id number] smoking) --CXR:Cardiomegaly and emphysema with no acute cardiopulmonary abnormality identified. Respiratory panel positive for human metapneumovirus +Family contact with similar symptoms -ECHO: Moderate concentric LVH, EF 60 to 65%, no segmental left ventricle wall motion abnormality. Aortic valve sclerosis mild, without significant aortic valvular stenosis. Normal procalcitonin Wean off of supplemental oxygen as able Continue doxycycline, Solu-Medrol Taper down steroids as able Continue nebs Will need PFTs as outpatient A-fib RVR Likely secondary to above H/O A-fib Currently rate is controlled Continue atenolol Continue Coumadin Monitor INR 1.9 We will consider to change atenolol to metoprolol if heart rate remains uncontrolled Mild troponin elevation Secondary to A-fib RVR, Type II [place] Patient denies chest pain Hypertension: Continue atenolol, CLYDE inhibitor Monitor DM II Uncontrolled HbA1C: 9.6 Hold glipizide, metformin Continue Insulin per protocol Monitor BGs H/O Polymyalgia rheumatica on chronic prednisone DVT Px: on Coumadin Code Status Full Code . Admission and Anticipated Discharge Date Admission Date: December 30, 2022 Subjective Patient is seen and examined at bedside Cough, dyspnea slightly better today Denies any nausea, vomiting, diarrhea, chest pain, dizziness today Also reports headache earlier this morning Saturating well on 2 L supplemental oxygen Review of Systems Review of Systems: All systems reviewed & are unremarkable except as noted in Subjective Physical Exam Physical Exam: Physical Exam: Vitals signs as noted above General Appearance:Moderately built and nourished, no apparent distress Head: normocephalic, Atraumatic Eyes: normal inspection, EOMI Neck: supple, Trachea midline Respiratory/Chest: Coarse breath sounds, scattered wheezes, No accessory muscle use Cardiovascular: Irregularly irregular, No murmur Abdomen/GI:Soft, Non tender, Bowel sounds present Extremities/Musculoskeletal:normal inspection, no edema Neurologic/Psych:AAOX3, grossly no focal neurological deficits, mild hearing impairment Skin: normal color, warm Results & Data Results & Data Vital Signs (Past 12 Hours) Vital Signs Temp Pulse Pulse Resp BP Pulse Ox O2 Del Method 12/31/22 14:59 93 H 18 96 Nasal Cannula 12/31/22 12:00 36.8 C 83 18 140/59 L Room Air 12/31/22 12:00 36.5 C 95 H 18 145/70 H 97 Room Air 12/31/22 08:00 95 H 12/31/22 11:25 Nasal Cannula 12/31/22 10:48 84 18 97 Nasal Cannula 12/31/22 08:00 36.7 C 100 H 20 135/74 Room Air 12/31/22 07:01 110 H 16 94 Nasal Cannula 12/31/22 04:09 98 H 21 96 O2 Flow Rate FiO2 12/31/22 14:59 2 12/31/22 12:00 12/31/22 12:00 12/31/22 08:00 12/31/22 11:25 5 12/31/22 10:48 4 12/31/22 08:00 12/31/22 07:01 4 12/31/22 04:09 30 Laboratory Results Short CBC 12/30/22 12/31/22 Range/Units 17:19 05:25 WBC 9.49 10.35 (4.8-10.8) K/ul Hgb 14.8 14.0 (14.0-18.0) g/dl Hct 44.0 42.9 (42.0-52.0) % Plt Count 181 166 (130-400) K/uL BMP 12/30/22 12/31/22 17:19 05:25 Sodium 133 L 134 L Potassium 4.1 5.0 D Chloride 96 L 100 Carbon Dioxide 23 27 BUN 22 19 Creatinine 1.02 1.19 Glucose 304 H* 255 H Calcium 8.8 8.0 L Liver Function 12/30/22 Range/Units 17:19 Total Bilirubin 0.6 (0.2-1.0) mg/dl Direct Bilirubin 0.2 (0-0.2) mg/dl AST 25 (13-39) U/L ALT 27 (7-52) U/L Alkaline Phosphatase 36 (34-104) U/L Albumin 3.9 (3.4-5.0) gm/dl Urine 12/30/22 Range/Units 18:49 Urine Color Yellow Urine Appearance Clear (Clear) Urine pH 6.0 (4.5-7.5) Ur Specific [place] 1.024 (1.000-1.030) Urine Protein 2+ H (Negative) Urine Glucose (UA) 3+ H (Negative)
[2022-12-31] MEDS: ENALAPRIL MALEATE 5 MG TAB PO SCH (17:32)
[2022-12-31] MEDS: LANTUS PER UNIT CHARGE SQ SCH (20:13)
[2022-12-31] MEDS: ATORVASTATIN 20 MG TAB PO SCH (20:15)
[2022-12-31] MEDS: DULoxetine HCL 20 MG CAP PO SCH (20:15)
[2023-01-01] MEDS: ACETAMINOPHEN 325 MG TAB PO PRN (00:11)
[2023-01-01] MEDS: DOXYCYCLINE HYCLATE 100 MG in DEXTROSE 5% 100 ML IV SCH ×2 (01:48→12:50)
[2023-01-01] MEDS: ENOXAPARIN INJ 40 MG/0.4 ML SYR SQ SCH (06:30)
[2023-01-01 06:59] LABS: BUN Creatinine Ratio 22.6 (10-20); Calcium 8.4 mg/dl (8.6-10.3); Creatinine Clr Calc Pharmacy 63.3 ml/min; Est GFR (Non-African American) 66.4 ml/min; Potassium 3.9 mmol/L (3.5-5.1)
[2023-01-01] MEDS: LEVALBUTEROL 1.25MG/0.5ML NEB INH SCH (07:01)
[2023-01-01] MEDS: IPRATROPIUM BROMIDE NEB SOLN 0.02% 2.5 ML VIAL INH SCH ×4 (07:01→19:13)
[2023-01-01 07:04] LABS: INR 2.6 (0.9-1.1); Prothrombin Time 26.1 Seconds (9.0-12.0)
[2023-01-01] MEDS: INSULIN ASPART PER UNIT CHARGE SC SCH ×4 (08:59→21:22)
[2023-01-01] MEDS: LANTUS PER UNIT CHARGE SQ SCH ×2 (08:59→21:21)
[2023-01-01] MEDS ORDERED: METOPROLOL TARTRATE 1 MG/ML VIAL IV PRN (09:00)
[2023-01-01] MEDS: CHOLECALCIFEROL 1,000 UNITS 25 MCG TAB PO SCH (09:03)
[2023-01-01] MEDS: ENALAPRIL MALEATE 5 MG TAB PO SCH (09:04)
[2023-01-01] MEDS: METOPROLOL TARTRATE 25 MG TAB PO SCH ×2 (10:28→21:07)
[2023-01-01] MEDS: methylPREDNISolone 40 MG in SYRINGE 0 ML IV SCH ×2 (10:30→21:07)
[2023-01-01] MEDS: LEVALBUTEROL HCL 0.63 MG/3 ML NEB NEB SCH ×3 (10:44→19:13)
[2023-01-01] MEDS: guaiFENesin 600 MG TABCR PO SCH ×2 (14:05→21:06)
[2023-01-01] MEDS ORDERED: WARFARIN SOD 5 MG TAB PO SCH (16:00)
--- NOTE | 2023-01-01 17:11 | Hospitalist Progress Note ---
Date of Service January 01, 2023 Assessment & Plan (1) Acute respiratory failure with hypoxia: Plan: Patient is a 77 yr male who presents with shortness of breath and acute respiratory distress. Acute respiratory failure with hypoxia Acute bronchitis likely secondary to metapneumovirus infection Possible underlying COPD with exacerbation (H/O 65-[id number] smoking) --CXR:Cardiomegaly and emphysema with no acute cardiopulmonary abnormality identified. Respiratory panel positive for human metapneumovirus +Family contact with similar symptoms -ECHO: Moderate concentric LVH, EF 60 to 65%, no segmental left ventricle wall motion abnormality. Aortic valve sclerosis mild, without significant aortic valvular stenosis. Normal procalcitonin Wean off of supplemental oxygen as able Continue doxycycline, Solu-Medrol Taper down steroids as able Continue nebs Will need PFTs as outpatient Added flutter, Mucinex A-fib RVR Likely secondary to above H/O A-fib Currently rate is controlled Atenolo>>changed to Metoprolol Continue Coumadin Monitor INR 1.9>2.6 Mild troponin elevation Secondary to A-fib RVR, Type II [place] Patient denies chest pain Hypertension: Continue atenolol, CLYDE inhibitor Monitor DM II Uncontrolled HbA1C: 9.6 Hold glipizide, metformin Continue Insulin per protocol Monitor BGs H/O Polymyalgia rheumatica on chronic prednisone DVT Px: on Coumadin Code Status Full Code . Admission and Anticipated Discharge Date Admission Date: December 30, 2022 Subjective Patient is seen and examined at bedside States having poor sleep overnight Still has Cough, dyspnea on exertion Denies any nausea, vomiting, diarrhea, chest pain, dizziness today Saturating low 90s on room air Review of Systems Review of Systems: All systems reviewed & are unremarkable except as noted in Subjective Physical Exam Physical Exam: Physical Exam: Vitals signs as noted above General Appearance:Moderately built and nourished, no apparent distress Head: normocephalic, Atraumatic Eyes: normal inspection, EOMI Neck: supple, Trachea midline Respiratory/Chest: Coarse breath sounds, scattered Rhonchi, No accessory muscle use Cardiovascular: Irregularly irregular, tachycardia, no murmur Abdomen/GI:Soft, Non tender, Bowel sounds present Extremities/Musculoskeletal:normal inspection, no edema Neurologic/Psych:AAOX3, grossly no focal neurological deficits, mild hearing impairment Skin: normal color, warm Results & Data Results & Data Vital Signs (Past 12 Hours) Vital Signs Temp Pulse Pulse Resp BP Pulse Ox O2 Del Method 01/01/23 16:00 103 H 01/01/23 16:03 36.6 C 102 H 18 148/87 H 92 Room Air 01/01/23 14:49 103 H 18 95 Room Air 01/01/23 12:14 36.6 C 106 H 18 151/94 H 94 Room Air 01/01/23 10:44 101 H 20 95 Room Air 01/01/23 09:00 94 H 01/01/23 08:03 36.6 C 116 H 20 135/81 92 Room Air 01/01/23 07:02 90 18 96 Nasal Cannula O2 Flow Rate 01/01/23 16:00 01/01/23 16:03 01/01/23 14:49 01/01/23 12:14 01/01/23 10:44 01/01/23 09:00 01/01/23 08:03 01/01/23 07:02 1.5 Laboratory Results BMP 01/01/23 06:25 Sodium 136 Potassium 3.9 D Chloride 102 Carbon Dioxide 25 BUN 24 H Creatinine 1.06 Glucose 276 H Calcium 8.4 L
[2023-01-01] MEDS: DULoxetine HCL 20 MG CAP PO SCH (21:06)
[2023-01-01] MEDS: ATORVASTATIN 20 MG TAB PO SCH (21:06)
[2023-01-02] MEDS: DOXYCYCLINE HYCLATE 100 MG in DEXTROSE 5% 100 ML IV SCH (01:18)
[2023-01-02] MEDS ORDERED: POTASSIUM CHLORIDE CRTAB 20 MEQ TABCR PO STA (05:27)
[2023-01-02] MEDS ORDERED: METOPROLOL TARTRATE 25 MG TAB PO SCH (05:30)
[2023-01-02] MEDS: ENOXAPARIN INJ 40 MG/0.4 ML SYR SQ SCH (05:47)
[2023-01-02 06:10] LABS: Hematocrit (blood only) 41.5 % (42.0-52.0); Hemoglobin 13.7 g/dl (14.0-18.0); Mean Corpuscular Hemoglobin 30.1 pg (25.0-34.0); Mean Corpuscular Volume 91.2 fL (80.0-100.0); Mean Platelet Volume 11.5 fL (9.4-12.4); Platelet Count 184 K/uL (130-400); RDW Coefficient of Variation 13.2 % (11.5-14.5); RDW Standard Deviation 44.9 fL (36.4-46.3); Red Blood Count 4.55 M/uL (4.70-6.10); White Blood Count 11.63 K/ul (4.8-10.8)
[2023-01-02 06:26] LABS: BUN Creatinine Ratio 31.2 (10-20); Calcium 8.6 mg/dl (8.6-10.3); Creatinine Clr Calc Pharmacy 72.2 ml/min; Est GFR (African American) 90.2 ml/min; Est GFR (Non-African American) 77.8 ml/min; Magnesium 1.9 mg/dl (1.7-2.4); Potassium 4.9 mmol/L (3.5-5.1)
[2023-01-02] MEDS: LEVALBUTEROL HCL 0.63 MG/3 ML NEB NEB SCH ×4 (06:58→19:11)
[2023-01-02] MEDS: IPRATROPIUM BROMIDE NEB SOLN 0.02% 2.5 ML VIAL INH SCH ×4 (06:58→19:11)
[2023-01-02 07:25] LABS: INR 3.8 (0.9-1.1); Prothrombin Time 37.7 Seconds (9.0-12.0)
[2023-01-02] MEDS: ENALAPRIL MALEATE 5 MG TAB PO SCH (08:17)
[2023-01-02] MEDS: ACETAMINOPHEN 325 MG TAB PO PRN (08:18)
[2023-01-02] MEDS: CHOLECALCIFEROL 1,000 UNITS 25 MCG TAB PO SCH (08:18)
[2023-01-02] MEDS: methylPREDNISolone 40 MG in SYRINGE 0 ML IV SCH (08:19)
[2023-01-02] MEDS: INSULIN ASPART PER UNIT CHARGE SC SCH ×4 (08:20→21:06)
[2023-01-02] MEDS: LANTUS PER UNIT CHARGE SQ SCH ×2 (08:20→21:05)
[2023-01-02] MEDS: guaiFENesin 600 MG TABCR PO SCH ×2 (08:21→21:07)
[2023-01-02] MEDS: ENALAPRIL MALEATE 10 MG TAB PO SCH (09:35)
[2023-01-02] MEDS: DOXYCYCLINE HYCLATE 100 MG CAP PO SCH ×2 (12:28→21:07)
[2023-01-02] MEDS ORDERED: METOPROLOL TARTRATE 25 MG TAB PO ONE (13:30)
--- NOTE | 2023-01-02 16:22 | Hospitalist Progress Note ---
Date of Service January 02, 2023 Assessment & Plan (1) Acute respiratory failure with hypoxia: Plan: Patient is a 77 yr male who presents with shortness of breath and acute respiratory distress. Acute respiratory failure with hypoxia Acute bronchitis likely secondary to metapneumovirus infection Possible underlying COPD with exacerbation (H/O 03-[id number] smoking) --CXR:Cardiomegaly and emphysema with no acute cardiopulmonary abnormality identified. Respiratory panel positive for human metapneumovirus +Family contact with similar symptoms -ECHO: Moderate concentric LVH, EF 60 to 65%, no segmental left ventricle wall motion abnormality. Aortic valve sclerosis mild, without significant aortic valvular stenosis. Normal procalcitonin Wean off of supplemental oxygen as able Continue doxycycline, Solu-Medrol Continue nebs Will need PFTs as outpatient Added flutter, Mucinex Decrease Solu-Medrol to daily Saturating well on room air We will plan to transition to p.o. steroids as able A-fib RVR Likely secondary to above H/O A-fib Currently rate is controlled Atenolol>>changed to Metoprolol tartrate 50 mg twice daily Monitor INR 1.9>2.6>3.8 Hold Coumadin today Mild troponin elevation Secondary to A-fib RVR, Type II [place] Patient denies chest pain Hypertension: Continue metoprolol, enalapril Monitor DM II Uncontrolled HbA1C: 9.6 Hold glipizide, metformin Continue Insulin per protocol Monitor BGs H/O Polymyalgia rheumatica on chronic prednisone DVT Px: Hold Coumadin due to supratherapeutic INR Code Status Full Code . Admission and Anticipated Discharge Date Admission Date: December 30, 2022 Subjective Patient is seen and examined at bedside Reports headache this morning Less cough today Denies any Dyspnea, nausea, vomiting, diarrhea, chest pain, dizziness Saturating well on room air Review of Systems Review of Systems: All systems reviewed & are unremarkable except as noted in Subjective Physical Exam Physical Exam: Physical Exam: Vitals signs as noted above General Appearance:Moderately built and nourished, no apparent distress Head: normocephalic, Atraumatic Eyes: normal inspection, EOMI Neck: supple, Trachea midline Respiratory/Chest: Coarse breath sounds, No accessory muscle use Cardiovascular: Irregularly irregular, no murmur Abdomen/GI:Soft, Non tender, Bowel sounds present Extremities/Musculoskeletal:normal inspection, no edema Neurologic/Psych:AAOX3, grossly no focal neurological deficits, mild hearing impairment Skin: normal color, warm Results & Data Results & Data Vital Signs (Past 12 Hours) Vital Signs Temp Pulse Pulse Resp BP BP Pulse Ox 01/02/23 15:15 83 18 94 01/02/23 11:16 16 94 01/02/23 10:46 36.8 C 95 H 20 154/91 H 95 01/02/23 08:38 36.8 C 75 18 177/105 H 97 01/02/23 08:03 01/02/23 06:58 62 16 92 01/02/23 05:19 106 H 17 168/124 H 95 01/02/23 05:09 36.7 C 91 H 20 163/118 H 90 O2 Del Method 01/02/23 15:15 Room Air 01/02/23 11:16 Room Air 01/02/23 10:46 Room Air 01/02/23 08:38 Room Air 01/02/23 08:03 Room Air 01/02/23 06:58 Room Air 01/02/23 05:19 Room Air 01/02/23 05:09 Room Air Laboratory Results Short CBC 01/02/23 Range/Units 05:33 WBC 11.63 H (4.8-10.8) K/ul Hgb 13.7 L (14.0-18.0) g/dl Hct 41.5 L (42.0-52.0) % Plt Count 184 (130-400) K/uL BMP 01/02/23 05:33 Sodium 135 L Potassium 4.9 D Chloride 104 Carbon Dioxide 24 BUN 29 H Creatinine 0.93 Glucose 246 H Calcium 8.6
[2023-01-02] MEDS: ATORVASTATIN 20 MG TAB PO SCH (21:06)
[2023-01-02] MEDS: METOPROLOL TARTRATE 50 MG TAB PO SCH (21:06)
[2023-01-02] MEDS: DULoxetine HCL 20 MG CAP PO SCH (21:07)
[2023-01-03] MEDS: ENOXAPARIN INJ 40 MG/0.4 ML SYR SQ SCH (05:49)
[2023-01-03] MEDS: IPRATROPIUM BROMIDE NEB SOLN 0.02% 2.5 ML VIAL INH SCH ×2 (07:26→12:03)
[2023-01-03] MEDS: LEVALBUTEROL HCL 0.63 MG/3 ML NEB NEB SCH ×2 (07:26→12:03)
[2023-01-03 07:48] LABS: INR 3.5 (0.9-1.1); Prothrombin Time 34.5 Seconds (9.0-12.0)
[2023-01-03] MEDS: DOXYCYCLINE HYCLATE 100 MG CAP PO SCH (08:03)
[2023-01-03] MEDS: ENALAPRIL MALEATE 10 MG TAB PO SCH (08:03)
[2023-01-03] MEDS: guaiFENesin 600 MG TABCR PO SCH (08:03)
[2023-01-03] MEDS: CHOLECALCIFEROL 1,000 UNITS 25 MCG TAB PO SCH (08:04)
[2023-01-03] MEDS: METOPROLOL TARTRATE 50 MG TAB PO SCH (08:04)
[2023-01-03 08:05] LABS: Calcium 8.6 mg/dl (8.6-10.3); Creatinine Clr Calc Pharmacy 68.7 ml/min; Est GFR (African American) 93.8 ml/min; Est GFR (Non-African American) 80.9 ml/min; Potassium 3.8 mmol/L (3.5-5.1)
[2023-01-03] MEDS: INSULIN ASPART PER UNIT CHARGE SC SCH ×2 (08:06→11:57)
[2023-01-03] MEDS: LANTUS PER UNIT CHARGE SQ SCH (08:18)
[2023-01-03] MEDS ORDERED: methylPREDNISolone 40 MG in SYRINGE 0 ML IV SCH (09:00)
--- NOTE | 2023-01-03 12:41 | Hospitalist Progress Note ---
Date of Service January 03, 2023 Assessment & Plan (1) Acute respiratory failure with hypoxia: Plan: Patient is a 77 yr male who presents with shortness of breath and acute respiratory distress. Acute respiratory failure with hypoxia Acute bronchitis likely secondary to metapneumovirus infection Possible underlying COPD with exacerbation (H/O [id number] smoking) --CXR:Cardiomegaly and emphysema with no acute cardiopulmonary abnormality identified. Respiratory panel positive for human metapneumovirus +Family contact with similar symptoms -ECHO: Moderate concentric LVH, EF 60 to 65%, no segmental left ventricle wall motion abnormality. Aortic valve sclerosis mild, without significant aortic valvular stenosis. Normal procalcitonin Weaned off of supplemental oxygen Continue doxycycline Will discontinue IV Solu-Medrol Continue nebs Advised to get PFTs as outpatient Added flutter, Mucinex Saturating well on room air Plan to transition to home PO prednisone upon discharge (on Prednisone 5mg BID for PMR) Advised to follow-up with pulmonology as outpatient A-fib RVR Likely secondary to above H/O A-fib Currently rate is controlled Atenolol>>changed to Metoprolol tartrate 50 mg twice daily Monitor INR 1.9>2.6>3.8>3.5 Continue to hold Coumadin today Mild troponin elevation Secondary to A-fib RVR, Type II CA Patient denies chest pain Hypertension: Continue metoprolol, enalapril Monitor DM II Uncontrolled HbA1C: 9.6 Hold glipizide, metformin Continue Insulin per protocol Monitor BGs H/O Polymyalgia rheumatica on chronic prednisone DVT Px: Hold Coumadin due to supratherapeutic INR Code Status Full Code . Admission and Anticipated Discharge Date Admission Date: December 30, 2022 Subjective Patient is seen and examined at bedside States feeling better today Sitting in chair during my encounter Minimal cough with expectoration No other complaints Denies any Dyspnea, nausea, vomiting, diarrhea, chest pain, dizziness Plan to discharge home today Review of Systems Review of Systems: All systems reviewed & are unremarkable except as noted in Subjective Physical Exam Physical Exam: Physical Exam: Vitals signs as noted above General Appearance:Moderately built and nourished, no apparent distress Head: normocephalic, Atraumatic Eyes: normal inspection, EOMI Neck: supple, Trachea midline Respiratory/Chest: Coarse breath sounds improving, No accessory muscle use Cardiovascular: Irregularly irregular, no murmur Abdomen/GI:Soft, Non tender, Bowel sounds present Extremities/Musculoskeletal:normal inspection, no edema Neurologic/Psych:AAOX3, grossly no focal neurological deficits, mild hearing impairment Skin: normal color, warm Results & Data Results & Data Vital Signs (Past 12 Hours) Vital Signs Temp Pulse Pulse Pulse Resp BP BP 01/03/23 12:03 37.0 C 96 H 107 H 18 136/73 144/103 H 01/03/23 12:04 95 H 16 01/03/23 11:11 37.0 C 96 H 18 136/73 01/03/23 11:07 01/03/23 08:23 36.7 C 100 H 18 150/72 H 01/03/23 07:29 107 H 01/03/23 07:28 84 18 01/03/23 04:40 36.8 C 96 H 18 144/103 H Pulse Ox O2 Del Method FiO2 01/03/23 12:03 94 01/03/23 12:04 93 Room Air 01/03/23 11:11 94 Room Air 01/03/23 11:07 Room Air 01/03/23 08:23 92 Room Air 01/03/23 07:29 01/03/23 07:28 Room Air 93 01/03/23 04:40 92 Room Air Laboratory Results BMP 01/03/23 06:27 Sodium 139 Potassium 3.8 D Chloride 105 Carbon Dioxide 27 BUN 27 H Creatinine 0.90 Glucose 88 Calcium 8.6
--- NOTE | 2023-01-03 12:55 | Discharge Summary ---
Date of Service January 03, 2023 Admission HPI Per Admitting Provider CHIEF COMPLAINT: Shortness of breath. HISTORY OF PRESENT ILLNESS: A 77-year-old male with past medical history significant for type 2 diabetes, hyperlipidemia, diabetic retinopathy, both eyes; history of permanent atrial fibrillation, hypertension, polymyalgia rheumatica, steroid-induced osteoporosis, presents with shortness of breath and cough. The patient's is in the room. As per since last Thursday, the patient started developing cough, bringing up some yellowish phlegm and fever, and short of breath and last night, his temperature was 102, went to PCP's office today . Having poor appetite and today morning has nausea, vomiting and his heart rate was high when they are in the PCP's office and because he was volume depleted with nausea, vomiting, he was advised to come to the ER. In the ER when he came in, he was on 6 liters of oxygen. His lactic acid was elevated and he was tachycardic. Lactic acid was 2.6. He was given 2 liters of IV fluids, and became more short of breath requiring placement of BiPAP. Chest x- ray was done in the ER. It does not show any obvious infection. CT of abdomen and pelvis was done because of nausea and vomiting showing opacities in the lungs, may represent pneumonia in appropriate clinical settings, moderate colonic stool burden. Respiratory BioFire came back positive for metapneumovirus. The patient also has some rhonchi and wheezing on exam and the patient also has remote history of smoking, quit smoking in 1988, but prior to that smoked 1 pack a day for 30 years. Currently, he is placed on BiPAP, says after placing BiPAP, he is feeling better, but his chest hurts when he is coughing. His whole body hurts,has some belly discomfort. Normal bowel and bladder movements Admission Exam Per Admitting Provider PHYSICAL EXAMINATION: GENERAL: The patient is of moderate build, not in acute distress. VITAL SIGNS: Temperature 36.8, pulse 102, respiratory rate 26, blood pressure 138/78, oxygen 95% on BiPAP. HEENT: Pupils equal, round and reactive to light. The patient has been placed on BiPAP. NECK: No obvious neck masses. CARDIOVASCULAR: S1 and S2 heard. Tachycardia. No murmurs. RESPIRATORY SYSTEM: Normal AP diameter. No accessory muscle use. Bilateral wheezing and rhonchi heard. ABDOMEN: Soft, bowel sounds present, nontender, no distention. CENTRAL NERVOUS SYSTEM: Alert and awake. Speech is okay. No obvious facial droop seen. Obeys commands. Moves extremities. EXTREMITIES: No obvious edema or erythema seen. Principal Diagnosis Acute respiratory failure with hypoxia Acute bronchitis secondary to metapneumovirus infection Atrial fibrillation with rapid ventricle response Possible underlying COPD Discharge Exam Physical Exam: Vitals signs as noted above General Appearance:Moderately built and nourished, no apparent distress Head: normocephalic, Atraumatic Eyes: normal inspection, EOMI Neck: supple, Trachea midline Respiratory/Chest: Coarse breath sounds improving, No accessory muscle use Cardiovascular: Irregularly irregular, no murmur Abdomen/GI:Soft, Non tender, Bowel sounds present Extremities/Musculoskeletal:normal inspection, no edema Neurologic/Psych:AAOX3, grossly no focal neurological deficits, mild hearing impairment Skin: normal color, warm Discharge Data Allergies Allergy/AdvReac Type Severity Reaction Status Date / Time oxycodone Allergy Intermediate WHEEZING Verified 12/30/22 20:14 Consultations 12/30/22 20:31 ED Decision to Admit Stat Procedures Performed Laboratory Results WBC 11.63 K/ul (4.8-10.8) H 01/02/23 05:33 RBC 4.55 M/uL (4.70-6.10) L 01/02/23 05:33 Hgb 13.7 g/dl (14.0-18.0) L 01/02/23 05:33 Hct 41.5 % (42.0-52.0) L 01/02/23 05:33 MCV 91.2 fL (80.0-100.0) 01/02/23 05:33 MCH 30.1 pg (25.0-34.0) 01/02/23 05:33 MCHC 33.0 g/dL (32.0-36.0) 01/02/23 05:33 RDW Std Deviation 44.9 fL (36.4-46.3) 01/02/23 05:33 RDW Coeff of Roverto 13.2 % (11.5-14.5) 01/02/23 05:33 Plt Count 184 K/uL (130-400) 01/02/23 05:33 MPV 11.5 fL (9.4-12.4) 01/02/23 05:33 Immature Gran % (Auto) 0.6 % 12/31/22 05:25 Neut % (Auto) 90.3 % 12/31/22 05:25 Lymph % (Auto) 3.5 % 12/31/22 05:25 [place] % (Auto) 5.5 % 12/31/22 05:25 Eos % (Auto) 0.0 % 12/31/22 05:25 Baso % (Auto) 0.1 % 12/31/22 05:25 Neut # (Auto) 9.35 K/uL (1.40-6.50) H 12/31/22 05:25 Lymph # (Auto) 0.36 K/uL (1.2-3.4) L 12/31/22 05:25 [place] # (Auto) 0.57 K/uL (0.11-0.59) 12/31/22 05:25 Eos # (Auto) 0.00 K/uL (0-0.50) 12/31/22 05:25 Baso # (Auto) 0.01 K/uL (0-0.2) 12/31/22 05:25 Immature Gran # (Auto) 0.06 K/uL (0.01-0.20) 12/31/22 05:25 Echinocytes 1+ 12/31/22 05:25 PT 34.5 Seconds (9.0-12.0) H 01/03/23 06:27 INR 3.5 (0.9-1.1) H 01/03/23 06:27 Sodium 139 mmol/L (136-145) 01/03/23 06:27 Potassium 3.8 mmol/L (3.5-5.1) D 01/03/23 06:27 Chloride 105 mmol/L (98-107) 01/03/23 06:27 Carbon Dioxide 27 mmol/L (21-32) 01/03/23 06:27 Anion Gap 7 (3-11) 01/03/23 06:27 BUN 27 mg/dl (6-23) H 01/03/23 06:27 Creatinine 0.90 mg/dl (0.6-1.4) 01/03/23 06:27 Est Cr Clr Drug Dosing 68.7 ml/min 01/03/23 06:27 Est GFR ( Amer) 93.8 ml/min 01/03/23 06:27 Est GFR (Non-Af Amer) 80.9 ml/min 01/03/23 06:27 BUN/Creatinine Ratio 30.0 (10-20) H 01/03/23 06:27 Glucose 88 mg/dl (70-99(Fasting)) 01/03/23 06:27 POC Glucose 113 mg/dl (70-99) H 01/03/23 11:11 Estimat Average Glucose 229 mg/dl 12/31/22 05:25 Hemoglobin A1c 9.6 % (4.5-5.6) H 12/31/22 05:25 Lactate 1.6 mmol/L (0.4-2.0) 12/30/22 20:02 Calcium 8.6 mg/dl (8.6-10.3) 01/03/23 06:27 Phosphorus 2.6 mg/dl (2.5-4.9) 12/30/22 17:19 Magnesium 1.9 mg/dl (1.7-2.4) 01/02/23 05:33 Magnesium 1.9 mg/dl (1.7-2.4) 01/02/23 05:33 Total Bilirubin 0.6 mg/dl (0.2-1.0) 12/30/22 17:19 Direct Bilirubin 0.2 mg/dl (0-0.2) 12/30/22 17:19 AST 25 U/L (13-39) 12/30/22 17:19 ALT 27 U/L (7-52) 12/30/22 17:19 Alkaline Phosphatase 36 U/L (34-104) 12/30/22 17:19 Troponin I High Sens 27.4 pg/ml (0-20) H 12/31/22 11:05 B-Natriuretic Peptide 96 pg/ml (0-100) 12/30/22 20:52 Total Protein 7.1 gm/dl (6.0-8.3) 12/30/22 17:19 Albumin 3.9 gm/dl (3.4-5.0) 12/30/22 17:19 Lipase 12 U/L (11-82) 12/30/22 20:52 Procalcitonin < 0.05 ng/ml (0-0.5) 01/01/23 06:25 Urine Color Yellow 12/30/22 18:49 Urine Appearance Clear (Clear) 12/30/22 18:49 Urine pH 6.0 (4.5-7.5) 12/30/22 18:49 Ur Specific [place] 1.024 (1.000-1.030) 12/30/22 18:49 Urine Protein 2+ (Negative) H 12/30/22 18:49 Urine Glucose (UA) 3+ (Negative) H 12/30/22 18:49 Urine Ketones 2+ (Negative) H 12/30/22 18:49 Urine Blood Trace (Negative) H 12/30/22 18:49 Urine Nitrite Negative (Negative) 12/30/22 18:49 Urine Bilirubin Negative (Negative) 12/30/22 18:49 Urine Urobilinogen Negative (Negative) 12/30/22 18:49 Ur Leukocyte Esterase Negative (Negative) 12/30/22 18:49 Urine WBC (Auto) 1-5 /hpf (0-5) 12/30/22 18:49 Urine RBC (Auto) 0-4 /hpf (0-4) 12/30/22 18:49 U Hyaline Cast (Auto) 1-5 /lpf (0-5) 12/30/22 18:49 U Epithel Cells (Auto) 5-10 /lpf (0-5) H 12/30/22 18:49 Urine Bacteria (Auto) Negative (Negative) 12/30/22 18:49 Adenovirus (PCR) Not Detected (NotDetected) 12/30/22 17:37 B. pertussis DNA (PCR) Not Detected (NotDetected) 12/30/22 17:37 B.parapertussis DNA PCR Not Detected (NotDetected) 12/30/22 17:37 C. pneumoniae DNA (PCR) Not Detected (NotDetected) 12/30/22 17:37 Coronavirus OC43 (PCR) Not Detected (NotDetected) 12/30/22 17:37 Coronavirus HKU1 (PCR) Not Detected (NotDetected) 12/30/22 17:37 Coronavirus 229E (PCR) Not Detected (NotDetected) 12/30/22 17:37 SARS-CoV-2 (PCR) Not Detected (NotDetected) 12/30/22 17:37 Coronavirus NL63 (PCR) Not Detected (NotDetected) 12/30/22 17:37 Human Metapneumovir PCR DETECTED (NotDetected) A* 12/30/22 17:37 Influenza Type A (PCR) Not Detected (NotDetected) 12/30/22 17:37 Influenza Type B (PCR) Not Detected (NotDetected) 12/30/22 17:37 M. pneumoniae (PCR) Not Detected (NotDetected) 12/30/22 17:37 Parainfluenza 1 (PCR) Not Detected (NotDetected) 12/30/22 17:37 Parainfluenza 2 (PCR) Not Detected (NotDetected) 12/30/22 17:37 Parainfluenza 3 (PCR) Not Detected (NotDetected) 12/30/22 17:37 Parainfluenza 4 (PCR) Not Detected (NotDetected) 12/30/22 17:37 RSV (PCR) Not Detected (NotDetected) 12/30/22 17:37 Entero/Rhino (PCR) Not Detected (NotDetected) 12/30/22 17:37 Impressions Chest X-Ray 12/30/22 17:29 SINGLE VIEW CHEST CLINICAL HISTORY: Sepsis. FINDINGS: An AP, portable, upright chest radiograph is compared to study dated 03/21/2018 and correlated with chest CT dated 03/17/2018. The heart is enlarged noting atherosclerotic calcification of the thoracic aorta. The pulmonary vasculature is noncongested. Emphysema and chronic interstitial thickening is similar to previous. Scarring/atelectasis is noted at the lung bases. No airspace consolidation or large pleural effusion is identified. No pneumothorax is seen. The skeletal structures are osteopenic. The bony thorax is grossly intact. IMPRESSION: Cardiomegaly and emphysema with no acute cardiopulmonary abnormality identified. ACT 112: Negative or not required by law. Electronically signed by: Alverto Tello M.D. 12/30/2022 7:13 PM Abdomen/Pelvis CT 12/30/22 18:07 Exam(s): CT ABDOMEN + PELVIS With Contrast IV Amt: 90 ml optiray EXAM: CT Abdomen and Pelvis With Intravenous Contrast CLINICAL HISTORY: Reason for exam: sepsis, vomiting. TECHNIQUE: Axial computed tomography images of the abdomen and pelvis with intravenous contrast. CTDI is 24.36 mGy and DLP is 1232.74 mGy-cm. Automated exposure control was utilized for the study. A dose lowering technique was utilized adhering to the principles of ALARA. CONTRAST: Patient received 90 ml optiray of IV contrast COMPARISON: CT abdomen and pelvis 01/13/2015. FINDINGS: Artifacts: Examination is degraded by extensive patient motion. Lung bases: Opacities in the lungs. ABDOMEN: Liver: Hepatic steatosis. Gallbladder and bile ducts: Unremarkable. No calcified stones. No ductal dilation. Pancreas: Unremarkable. No mass. No ductal dilation. Spleen: Unremarkable. No splenomegaly. Adrenals: Unremarkable. No mass. Kidneys and ureters: Perinephric stranding, unchanged from prior examination. No hydronephrosis. Stomach and bowel: Moderate colonic stool burden. No obstruction. No mucosal thickening. PELVIS: Appendix: No findings to suggest acute appendicitis. Bladder: Unremarkable. No mass. Reproductive: Unremarkable as visualized. ABDOMEN and PELVIS: Intraperitoneal space: Unremarkable. No free air. No significant fluid collection. Bones/joints: Degenerative change throughout the spine. No acute fracture. No dislocation. Soft tissues: Unremarkable. Vasculature: Atherosclerotic calcifications in the abdominal aorta and branches. No abdominal aortic aneurysm. Lymph nodes: Unremarkable. No enlarged lymph nodes. IMPRESSION: 1. Opacities in the lungs. This may represent pneumonia in appropriate clinical scenario. 2. Moderate colonic stool burden. Recommend correlation for constipation. 3. Hepatic steatosis. Electronically signed by: Jermaine Yang MD 12/30/22 20:51 PM Ordered Studies 12/30/22 18:07 CT abd pelvis IV con only Stat Diabetes Follow up Diabetes Follow-up Needed for HgbA1c >9% Hospital Course (1) Acute respiratory failure with hypoxia: Patient is a 77 yr male who presents with shortness of breath and acute respiratory distress. Acute respiratory failure with hypoxia Acute bronchitis likely secondary to metapneumovirus infection Possible underlying COPD with exacerbation (H/O [id number] smoking) --CXR:Cardiomegaly and emphysema with no acute cardiopulmonary abnormality ident ified. Respiratory panel positive for human metapneumovirus +Family contact with similar symptoms -ECHO: Moderate concentric LVH, EF 60 to 65%, no segmental left ventricle wall motion abnormality. Aortic valve sclerosis mild, without significant aortic valvular stenosis. Normal procalcitonin Weaned off of supplemental oxygen Continue doxycycline Will discontinue IV Solu-Medrol Continue nebs Advised to get PFTs as outpatient Added flutter, Mucinex Saturating well on room air Plan to transition to home PO prednisone upon discharge (on Prednisone 5mg BID for PMR) Advised to follow-up with pulmonology as outpatient A-fib RVR Likely secondary to above H/O A-fib Currently rate is controlled Atenolol>>changed to Metoprolol tartrate 50 mg twice daily Monitor INR 1.9>2.6>3.8>3.5 Continue to hold Coumadin today Mild troponin elevation Secondary to A-fib RVR, Type II [place] Patient denies chest pain Hypertension: Continue metoprolol, enalapril Monitor DM II Uncontrolled HbA1C: 9.6 Hold glipizide, metformin Continue Insulin per protocol Monitor BGs H/O Polymyalgia rheumatica on chronic prednisone DVT Px: Hold Coumadin due to supratherapeutic INR Code Status Full Code . Total Time Total Time Spent Total Time Spent (In Minutes): 54 minutes Discharge Plan Discharge Items Patient Disposition: Home - Self-Care Reason For Visit: SOB, COUGH Discharge Diagnosis: Acute respiratory failure with hypoxia Acute bronchitis likely secondary to metapneumovirus infection Atrial fibrillation with rapid ventricle response Possible underlying COPD Activity: Per Instructions section Exercise/Sports: Wait until after follow-up appointment Non-emergency contact: Primary Care Provider, Specialist and [place] Call non-emergency contact if: you have any medication questions, your symptoms worsen, your pain is concerning for you and you have a fever Follow-up/Referrals: Artemio Truong, [Primary Care Provider] - Diet: Carb Consistent or DM2 Diet Texture: Easy to Chew Addtl Attending Provider Instructions: Follow-up with your primary care physician Dr. Truong in 1 week Follow-up with your foundation stage teacher for outpatient pulmonary function test as advised. Follow-up with Coumadin clinic for monitoring your PT/INR and managing your Coumadin dosing. Follow-up with your sign out clerk in 2 to 4 weeks as advised for management of atrial fibrillation. --- Your INR is 3.5 today (01/03/23). Do not take Coumadin today. Can resume taking Coumadin tomorrow 12/25/22). Obtain blood test (PT/INR) on 01/05/23 and follow-up with Coumadin clinic for further instructions on Coumadin dosing. --- Complete antibiotic course (Doxycycline) as prescribed. --- Follow-up with your primary care physician regarding management of diabetes mellitus. You may need adjustment of your medications to help control your diabetes better. -- Your blood pressure medications were adjusted given elevated blood pressure while you are hospitalized. Discuss with your physician for further adjustment of medications as needed. Seek immediate medical attention if your symptoms reoccur or worsen Please take all medications as instructed on discharge list below. Please call if you have any questions or problems. You can reach a [facility] hospitalist on duty at [facility] 24 hours a day by calling [phone] Pending Studies at Discharge: Yes Studies:: Blood Cultures Stand-Alone Forms: My [facility] [employer], Smoking Cessation Medications and DC Order Prescriptions: New doxycycline hyclate 100 mg Capsule 100 mg PO BID Qty: 9 0RF enalapril maleate 10 mg Tablet 10 mg PO QAM Qty: 30 0RF metoprolol tartrate 50 mg Tablet 50 mg PO BID Qty: 60 1RF albuterol sulfate 90 mcg/actuation HFA aerosol inhaler 1 inh inhalation Q6H PRN (Reason: shortness of breath or wheezing) Qty: 8.5 1RF Continued glipizide 10 mg Tablet 20 mg PO BID Patient Comments: TAKES 2 TAB QAM/ 1.5 TAB QPM metformin 1,000 mg Tablet 1,000 mg PO BID atorvastatin [Lipitor] 20 mg Tablet 20 mg PO PM alendronate [Fosamax] 70 mg Tablet 70 mg PO WK Rx Instructions: TUESDAYS prednisone 5 mg Tablet 5 mg PO BID warfarin 5 mg Tablet 5 mg PO [id number] Rx Instructions: thursday - thursday warfarin 5 mg Tablet 7.5 mg PO WK Rx Instructions: sundays duloxetine 20 mg Capsule,Delayed Release(Dr/Ec) 20 mg PO QPM cholecalciferol (vitamin D3) [Vitamin D3] 50 mcg (2,000 unit) Tablet 50 mcg PO QAM acetaminophen [Tylenol Extra Strength] 500 mg Tablet 500 - 1,000 mg PO Q6H PRN (Reason: Pain) Trulicity 3 mg/0.5 mL pen injector 3 mg SUBCUT WK Rx Instructions: THURSDAYS betamethasone valerate 0.1 % ointment 1 applic topical BID PRN (Reason: NEEDED) Rx Instructions: apply to tight band of foreskin tissue Discontinued enalapril maleate 2.5 mg Tablet 5 mg PO QAM atenolol 50 mg Tablet 50 mg PO QAM Discharge Orders: Discharge Order (Routine); Ordered 01/03/23 Ordered By: Gideon Patterson/Other Patient Handouts: Exercise for a Healthier Heart, Infec Common Resp Prevention, AFib Admission Data Admit Date/Time: 12/30/22 21:38 Attending Provider: Gideon Holder Admit Provider: Gary Briscoe Primary Care Provider: Artemio Truong Other Providers: Gary Briscoe Other Interventions: Discharge Summary Assessment (RN) Last Done: 01/03/23 12:03
[2023-01-03] MEDS ORDERED: INSULIN ASPART PER UNIT CHARGE SC ONE (13:59)
[2023-01-03] MEDS ORDERED: LANTUS PER UNIT CHARGE SQ ONE (13:59)
[2023-01-03] MEDS ORDERED: LANTUS PER UNIT CHARGE SQ SCH (21:00)
[2023-01-04] MEDS ORDERED: predniSONE 20 MG TAB PO SCH (09:00)
[2023-01-04] MEDS ORDERED: WARFARIN SOD 7.5 MG TAB PO SCH (16:00)
== END 2023-01-03 14:00 | disposition home or self-care (01) | DRG 202 ==
LOC: ED 17:13 → 2E 21:38 → SUATTDRO 21:38 → 2E 23:53

== ENCOUNTER 2024-11-06 08:35 | Inpatient (IN) ==
--- OUTSIDE RECORDS SUMMARY | 2024-11-06 08:41 | External Medical Summary | Summary of Care ---
Author Name Unknown Organization [facility] Address [address] [place] [address] Phone [phone] Care Team Providers Care [employer] Specialist Name Role Phone Pascual Truong DO Primary Care Provider Reason for Visit * Reason Comments Medication Refill Encounter Details Date Type Department Care Team (Late st Contact Info) Description 09/03/2024 Refill Family Practice [address] [place] [address] [place] [address] Pascual Truong DO [address] [place] [address] Allergies No known active allergiesdocumented as of this encounter (statuses as of 09/05/2024) Medications Blood Glucose Monitoring Suppl (ONETOUCH ULTRA 2) w/Device KITIndications: Type 2 diabetes mellitus with hemoglobin A1c goal of less than 7.0% (FORM[facility]) 12/16/19 19 Active acetaminophen (TYLENOL) 500 MG Tablet Take 1-2 Tablets by mouth every 6 hours as needed for Pain. Active Vitamin D3 50 MCG (1999 CO) Oral Capsule Take 1 Capsule by mouth every evening. 30 Cap 5 08/11/20 21 Active OneTouch Ultra Blue In Vitro Strip (Glucose Blood)Indicatio ns:Type 2 diabetes mellitus with hemoglobin A1c goal of less than 7.0% ([facility]) Use to test once daily. DX:E11.9 100 Strip 3 07/28/20 22 Active OneTouch Delica Lancets 33G Use to test once daily. DX: E11.9 100 Each 3 07/28/20 22 Active Warfarin Sodium 5 MG Oral Tablet (Coumadin)Indic ations:Chronic atrial fibrillation (HCC) Take 1 tablet by mouth once daily or as directed by anticoagulation clinic 90 Tablet 3 4 11:01 AM EST 10/21/19 24 Active Vitamin B 12 500 MCG Oral TabletIndicatio ns:Vitamin B 12 deficiency Take 1 Tablet by mouth daily. 11/04/19 24 Active metFORMIN HCl 1000 MG Oral Tablet (Glucophage)Ind ications:Type 2 diabetes mellitus with hemoglobin A1c goal of less than 7.0% (HCC) TAKE ONE TABLET BY MOUTH TWICE A DAY WITH FOOD. 200 Tablet 3 4 3:54 PM EDT 12/21/19 24 025 Active Sildenafil Citrate 20 MG Oral Tablet (Revatio)Indica tions:Other male erectile dysfunction take 5 tablets by mouth daily if needed for ERECTILE DYSFUNCTION TAKE 1 HOUR BEFORE SEX 20 Tablet 3 02/04/20 24 Active Trulicity 4.5 MG/0.5ML Subcutaneous Solution Pen-injector (Dulaglutide) INJECT 4.5MG UNDER THE SKIN ONCE A WEEK 6 mL 1 4 9:36 AM EDT 02/11/20 24 Active glipiZIDE 10 MG Oral Tablet (Glucotrol)Loyda cations:Type 2 diabetes mellitus with hemoglobin A1c goal of less than 7.0% (HCC) TAKE TWO TABLETS BY MOUTH WITH BREAKFAST, ONE TABLET WITH LUNCH AND ONE TABLET WITH DINNER 360 Tablet 3 03/18/20 24 025 Active Additional Information Patient taking differently: 10 mg, Two in the morning and one with dinner, Reported on 08/30/2024 Trulicity 3 MG/0.5ML Subcutaneous Solution Pen-injector (Dulaglutide)In dications:Type 2 diabetes, HbA1C goal < 8% (HCC) Inject 3 mg under the skin once a week for 28 days. 2 mL 04/22/20 24 Active DULoxetine HCl 20 MG Oral Capsule Delayed Release Particles (Cymbalta)Indic ations:Polymyal kyle rheumatica (HCC) TAKE ONE CAPSULE BY MOUTH EVERY DAY. DO NOT CUT, CRUSH, OR CHEW. 100 Capsule 1 4 1:43 PM EDT 06/16/20 24 Active Alendronate Sodium 70 MG Oral Tablet (Fosamax) TAKE ONE TABLET BY MOUTH ONCE A WEEK WITH 8 OZ OF WATER 30 MINUTES BEFORE FIRST MEAL OF THE DAY. REMAIN UPRIGHT FOR 30 MINUTES AFTER TAKING TABLET 15 Tablet 2 4 9:53 AM EDT 07/01/20 24 Active Atorvastatin Calcium 20 MG Oral Tablet (Lipitor) Take 1 Tablet by mouth in the morning. 100 Tablet 1 4 6:43 AM EDT 07/23/20 24 Active predniSONE 5 MG Oral Tablet (Deltasone)Loyda cations:PMR (polymyalgia rheumatica) (HCC) TAKE ONE TABLET BY MOUTH EVERY MORNING & ONE TABLET BEFORE BEDTIME 200 Tablet 2 4 9:53 AM EDT 08/01/20 24 025 Active Metoprolol Tartrate 50 MG Oral Tablet (Lopressor) TAKE ONE TABLET BY MOUTH EVERY MORNING AND AT BEDTIME 200 Tablet 1 09/05/20 24 Active Enalapril Maleate 10 MG Oral Tablet (Vasotec) TAKE ONE TABLET BY MOUTH EVERY MORNING 100 Tablet 09/05/20 24 Active Metoprolol Tartrate 50 MG Oral Tablet (Lopressor) TAKE ONE TABLET BY MOUTH EVERY MORNING AND AT BEDTIME 200 Tablet 1 4 8:21 AM EDT 02/19/20 24 024 Discontin ued(Refil l) Enalapril Maleate 10 MG Oral Tablet (Vasotec) TAKE ONE TABLET BY MOUTH EVERY MORNING 100 Tablet 1 4 8:21 AM EDT 02/19/20 24 024 Discontin ued(Refil l) documented as of this encounter (statuses as of 09/05/2024) Active Problems Problem Noted Date Diagnosed Date Other male erectile dysfunction 06/23/2023 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 PMR (polymyalgia rheumatica) 01/10/2011 halfway current use of systemic steroids 01/10 halfway current use of anticoagulant therapy 0 11/27/2010 Overview (07/13/2017): ICD-10 update of inactive term DYSLIPIDEMIA, GOAL LDL BELOW 100 09/20/2009 Overview (09/20/2009): Per Lipid Taxonomy. Type 2 diabetes, HbA1C goal < 8% 07/26/2009 Overview (02/05/2016): Modified per Diabetes protocol #14. ICD-10 update of inactive term Permanent atrial fibrillation 10/19/2008 documented as of this encounter (statuses as of 09/05/2024) Resolved Problems Problem Noted Date Diagnosed Date Resolved Date Cystocele 12/12/2013 03/22/2018 Hydrocele 10/18/2013 03/22/2018 Balanitis 10/18/2013 03/22/2018 HTN, GOAL BELOW 140/80 05/31/201201/16 Overview: Per HTN Protocol #27. Anticoagulation management encounter 11/27/2010 02/05/2019 Obesity, Class I, BMI 30.0-3 4.9 (see actual BMI) 01/03/2010 02/05/2019 Overview (01/03/2010): Per Obesity Taxonomy HTN, GOAL BELOW 130/80 11/07/200906/03 Overview (11/07/2009): Per HTN Taxonomy. Atrial fibrillation 10/19/2008 02/06/20 19 Benign neoplasm of colon 09/16/2007 Overview (09/20/2007): hyperplastic polyps--repeat 3 years ADVANCE DIRECTIVE INFORMATION 03/14/2005 08/15/2024 Overview (03/14/2005): Yes, Copy scanned at patient level in the electronic medical record.(Go to Action, Patient File to view) Patient aware they must notify their healthcare provider of changes. Other viral warts 03/10/2003 03/22/2018 Overview (07/13/2017): ICD-10 update of inactive term DM type 2, not at goal 09/09/200207/26 Overview (07/26/2009): Modified per Diabetes protocol #14. HTN, goal below 140/90 09/09/200211/07 Overview (11/07/2009): Per HTN Taxonomy. PURE HYPERCHOLESTEROLEM 09/09/200209/11 Overview (09/20/2009): Per Lipid Taxonomy. OBESITY, UNSPECIFIED 09/09/2002 010 Overview (01/03/2010): Per Obesity Taxonomy documented as of this encounter (statuses as of 09/05/2024) Immunizations Name Administration Dates Next Due COVID-19 mRNA, LNP-s, No Pre serve, 2-Dose Series (Moderna) 12/22/2020,11/24/2020 COVID-19, MRNA-LNP, PF, 30 M CG/0.3 mL, 12 YRS AND ABOVE, IM (PFIZER-Comirnaty) 07/12/2024,08/03/2023 COVID-19, mRNA, LNP-s, PF, B ooster, 100mcg/0.5mg (Moderna) 03/08/2022,08/23/2021 Covid-19, Mrna, Lnp-s, Pf, B ivalent, 30 Mcg, IM, 12 yrs and above (Pfizer) 08/05/2022 Pneumococcal Conjugate Vacc, 13 Valent (Prevnar) 03/03/2016 Pneumococcal Polysaccharide PPV23 (Pneumovax) 01/03/2009 RSV Vac., Bivalent, Perfusio n F, Pf,0.5 Ml (Abrysvo) 08/17/2023 Season Influenza, Quad, PF, Adjuvanted, 65+ Yrs, IM (FLUAD) 07/19/2020 Seasonal Influenza Vac., MDV , IM, 0.5 mL (Fluzone) 08/21/2014,07/14/2013,10/07/2012,07/01,07/19/2010,09/03/2009,08/15/2008 ,08/19/2007,09/11/2006 Seasonal Influenza, High Dos e, Trivalent, PF, IM (Fluzone HD) 06/24/2024 Seasonal Influenza, PF, 6 M & above, IM , (FluLaval or Fluzone) 07/27/2018,08/17/2017 Seasonal Influenza, Quadriva lent Hd (Fluzone Hd) 06/23/2023,07/11/2022,06/20/2021 Seasonal Influenza, Quadriva lent, No Preserve, IM 07/27/2016,08/20/2015 Seasonal Influenza, Trivalen t, Adjuvanted, 65+ YRS, PF, (Fluad) 09/02/2019 TDAP (age 10 and older)(Boostrix) 07/23/2022,06/2012 Zoster Vaccine Recombinant (Shingrix) 03/27/2022 ,11/26/2021 documented as of this encounter Social History Tobacco Use Types Packs/Day Years Used Date Smoking Tobacco: Former Cigarettes 1 30 0 10/12/1958 - 10/12/1988 Passive Smoke Exposure: Past Smokeless Tobacco: Never Alcohol Use Standard Drinks/Week Comments Yes 0 (1 standard drink = 0.6 oz pur e alcohol) occ PHQ-2 Answer Date Recorded PHQ Adult Total Score 0 11/03/2023 Hunger Vital Sign Answer Date Recorded Within the past 12 months, y ou worried that your food would run out before you got the money to buy more. Never true 11/03/19 24 Within the past 12 months, t he food you bought just didn't last and you didn't have money to get more. Never true 11/03/2023 Childcare Answer Date Recorded Do you feel overwhelmed with taking care of a child, family member or friend? No 11/03/2023 Does your family need help f inding childcare? (Household - for ages 0-17 years) Not on file 11/03/2023 Clothing Answer Date Recorded Have you been unable to get clothing when it was really needed? No 11/03/2023 Is your family able to get c lothes or diapers when needed? (Household - for ages 0-17 years) Not on file 11/03/2023 Personal Safety Answer Date Recorded Do you feel unsafe or have concerns for your saf ety? No 11/03/2023 Do you have concerns for you r family's safety? (Household - for ages 0-17 years) Not on file 11/03/2023 Utilities Answer Date Recorded Do you have trouble paying y our heating, water, or electric bill? No 11/03/2023 Is your family able to pay t he heat, water, or electric bill? (Household - for ages 0-17 years) Not on file 11/03/2023 Does your family have access to good internet? (Household - for ages 0-17 years) Not on file 11/03/2023 Employment Status Answer Date Recorded Are you unemployed or without regular income? No 11/03/2023 Does the household have a re gular source of income? (Household - for ages 0-17 years) Not on file 11/03/2023 Social Connections Answer Date Recorded How often do you feel lonely or isolated from th ose around you? Never 11/03/2023 Financial Resource Strain Answer Date R ecorded Do you have any trouble payi ng for your medications, or do you think you might in the future? No 11/03/2023 Does your family have troubl e paying for medicine? (Household - for ages 0-17 years) Not on file 11/03/2023 Transportation Needs Answer Date Record ed READ ONLY Do you have troubl e getting a ride to medical visits or work? Never True 11/03/2023 Does your family have a hard time getting a ride to doctors visits? (Household - for ages 0-17 years) Not on file 11/03/2023 Has lack of transportation k ept you from medical appointments, meetings, work, or from getting things needed for daily living? Check all that apply. (Adult - for ages 18 years and over) Not on file 11/03/2023 Do you (or your family) have trouble finding or paying for a ride (transportation)? (Household - for ages 0-17 years) Not on file 11/03/2023 Housing Stability Answer Date Recorded Do you currently live in a s helter or have no steady place to sleep at night? No 11/03/2023 READ ONLY Do you think you a re at risk of becoming homeless? No 11/03/2023 Does your family worry about paying for your home or becoming homeless? (Household - for ages 0-17 years) Not on file 0 11/03/2023 Are you homeless or worried that you might be in the future? (Adult - for ages 18 years and over) Not on file Are you (or your family) shayy eless or worried that you might be in the future? (Household - for ages 0-17 years) Not on file Food Insecurity Answer Date Recorded Do you need food for this week? No 11/03/2023 Are you able to get enough f ood for your family? (Household - for ages 0-17 years) Not on file 11/03/2023 Does your family need food t his week? (Household - for ages 0-17 years) Not on file 11/03/2023 Do you always have enough fo od for your family? (Household - for ages 0-17 years) Not on file 11/03/2023 Sex and Gender Information Value Date Recorded Sex Assigned at Male 03/02/2019 7:46 AM EDT Legal Sex Male 6:01 AM EST Gender Identity Male 03/02/2019 7:46 AM EDT Sexual Orientation Straight 03/02/2019 7: 46 AM EDT Occupation Industry Job Start Date Job End Date Not on file Not on file Not on file Not on file documented as of this encounter Miscellaneous Notes * Telephone Encounter - Darlin Hubbard RPh - 09/05/2024 12:30 PM ESTSigned Prescriptions: Disp Refills Metoprolol Tartrate 50 MG Oral Tablet (Lop*200 Ta*1 Sig: TAKE ONE TABLET BY MOUTH EVERY MORNING AND AT BEDTIME Authorizing Provider: PASCUAL TRUONG Ordering User: DARLIN HUBBARD Enalapril Maleate 10 MG Oral Tablet (Vasot*100 Ta*0 Sig: TAKE ONE TABLET BY MOUTH EVERY MORNING Authorizing Provider: PASCUAL TRUONG Ordering User: DARLIN DOTSON * Telephone Encounter - Transfer User, Rx Adt - 09/03/2024 12:13 AM ESTPending Prescriptions: Disp Refills Metoprolol Tartrate 50 MG Oral Tablet (Lop*200 Ta*1 Sig: TAKE ONE TABLET BY MOUTH EVERY MORNING AND AT BEDTIME Enalapril Maleate 10 MG Oral Tablet (Vasot*100 Ta*1 Sig: TAKE ONE TABLET BY MOUTH EVERY MORNING documented in this encounter Plan of Treatment Upcoming Encounters Date Type Department Care Team (Late st Contact Info) Description 09/15/2024 8:00 AM EST Anticoagulation Family Practice [address] [facility] [address] [facility] [place] [address] College, Pharmacist [address] [address] 11/15/2024 8:00 AM EST Office Visit Family Practice [address] [facility] [address] [facility] [place] [address] Pascual Truong, DO [address] [place] [address] 02/06/2025 8:00 AM EDT Office Visit Ophthalmology, [facility] [address] [address] Brenden Ellis, DO [address] [address] 08/14/2025 9:00 AM EST Imaging Radiology, [address] [place] [address] 08/31/2025 8:30 AM EST Office Visit Rheumatology [address] [place] [address] Iván Golden CRNP [address] [place] [address] Health Maintenance Due Date Last Done Comments Adult Wellness Visit 03/31/2015 03/31/2014 Depression Screening 11/03/2024 11/03/2023 GFR 11/03/2024 11/03/2023, 12/12, 07/11/2022, Additional history exists Diabetic Eye Exam 11/23/2024 11/23/2023, , 11/23/2023, Additional history exists B-12 12/01/2024 12/01/2023, 10/13, 01/08/2023, Additional history exists HbA1c 01/10/2025 07/12/2024, 02/11, 11/03/2023, Additional history exists Albumin/Creatinine Ratio 07/12/2025 024, 06/23/2023, 09/01/2022, Additional history exists Diabetic Foot Exam 07/12/2025 07/12/2024, 0 04/29/2023, 07/23/2022, Additional history exists DXA Scan 08/10/2025 08/10/2023, 07/14, 08/05/2021, Additional history exists DTap/Tdap Vaccines (3 - Td or Tdap) 07/23/2032 07/23/2022, 04/19/2012, 01/29/2001 Pneumococcal Vaccine: 65+ Years Completed 03/03/2016, 01/03/2009, 09/01/2003 VITAMIN D LEVEL ONCE IN A LIFETIME-USE SMARTSET# [id number] Completed 11/26/2021, 08/09/2021, 09/02/2019, Additional history exists Zoster Vaccines Completed 03/27/2022, 11/26/2021 Influenza Vaccine (FLU shot) Completed , 06/24/2024, 06/23/2023, Additional history exists COVID-19 Vaccine Completed 07/12/2024, , 08/05/2022, Additional history exists HPV (Gardasil) Vaccine Aged Out No lo nger eligible based on patient's age to complete this topic Hepatitis B Vaccine Aged Out No longe r eligible based on patient's age to complete this topic MENINGOCOCCAL (MENACTRA/MENVEO) Aged Out No longer eligible based on patient's age to complete this topic documented as of this encounter Medical Devices Not on filedocumented as of this encounter Care Teams Military Source Operations Specialist Relationship Specialty Start Date End Date Pascual Truong DO [address] [place] [address] PCP - General Internal Medicine 04/20/24 documented as of this encounter
--- OUTSIDE RECORDS SUMMARY | 2024-11-06 08:41 | External Medical Summary ---
Author Name Unknown Address Unknown Organization [id number]:[facility] - [address] [place] [address] Laboratory Report Ordering Provider Test Date Status OVI HERRMANN 09/05/2024 11:35:24 Final Deficient: <20 ng/mL
Ins ufficient: 20-29 ng/mL
Recommended/Optimum:30-50 ng/mL

Vitamin D intoxication is rare. If suspicious of Vitamin D toxicity, evaluation of serum Calcium and PTH is recommended. Observation Date Value Abnormality Reference (Units ) Status 25-OH Vitamin D total 09/05/2024 11:35:24 42 >19 (ng/mL) Final Performing Location [facility] [place] - [address] [place] [address]
--- OUTSIDE RECORDS SUMMARY | 2024-11-06 08:41 | External Medical Summary | Summary of Care ---
Author Name Unknown Organization [facility] Address [address] [place] [address] Phone [phone] Care Team Providers Care Equal Opportunity Director Name Role Phone Artemio Truong DO Primary Care Provider [phone] Reason for Visit * Reason Comments Dosage Adjustment In Person (Anticoag Cl inic) Encounter Details Date Type Department Care Team (Late st Contact Info) Description 08/04/2024 8:00 AM EDT Anticoagulation Family Practice [address] [phone] College, Pharmacist [address] [address] Anticoagulation management encounter*; Permanent atrial fibrillation (HCC); rat exterminator current use of anticoagulant therapy Allergies No known active allergiesdocumented as of this encounter (statuses as of 08/04/2024) Medications Medication Sig Dispensed Refills Start Date End Date Status Blood Glucose Monitoring Suppl (BeamExpressUCH ULTRA 2) w/Device KITIndications:Ty pe 2 diabetes mellitus with hemoglobin A1c goal of less than 7.0% ([facility]) 12/15/2018 Active acetaminophen (TYLENOL) 500 MG Tablet Take 1-2 Tablets by mouth every 6 hours as needed for Pain. Active Vitamin D3 50 MCG (1999) Oral Capsule Take 1 Capsule by mouth every evening. 30 Cap 5 08/11/2021 Active OneTouch Ultra Blue In Vitro Strip (Glucose Blood)Indications :Type 2 diabetes mellitus with hemoglobin A1c goal of less than 7.0% ([facility]) Use to test once daily. DX:E11.9 100 Strip 3 07/28/2022 Active OneTouch Delica Lancets 33G Use to test once daily. DX: E11.9 100 Each 3 07/28/2022 Active Warfarin Sodium 5 MG Oral Tablet (Coumadin)Indicat ions:Chronic atrial fibrillation (HCC) Take 1 tablet by mouth once daily or as directed by anticoagulation clinic 90 Tablet 3 10/21/2023 Active Vitamin B 12 500 MCG Oral TabletIndications :Vitamin B 12 deficiency Take 1 Tablet by mouth daily. 11/04/2023 Active metFORMIN HCl 1000 MG Oral Tablet (Glucophage)Indic ations:Type 2 diabetes mellitus with hemoglobin A1c goal of less than 7.0% ([facility]) TAKE ONE TABLET BY MOUTH TWICE A DAY WITH FOOD. 200 Tablet 3 12/21/2023 Active Sildenafil Citrate 20 MG Oral Tablet (Revatio)Indicati ons:Other male erectile dysfunction take 5 tablets by mouth daily if needed for ERECTILE DYSFUNCTION TAKE 1 HOUR BEFORE SEX 20 Tablet 3 02/04/2024 Active Trulicity 4.5 MG/0.5ML Subcutaneous Solution Pen-injector (Dulaglutide) INJECT 4.5MG UNDER THE SKIN ONCE A WEEK 6 mL 1 02/11/2024 Active Metoprolol Tartrate 50 MG Oral Tablet (Lopressor) TAKE ONE TABLET BY MOUTH EVERY MORNING AND AT BEDTIME 200 Tablet 1 02/19/2024 Active Enalapril Maleate 10 MG Oral Tablet (Vasotec) TAKE ONE TABLET BY MOUTH EVERY MORNING 100 Tablet 1 02/19/2024 5 Active glipiZIDE 10 MG Oral Tablet (Glucotrol)Indica tions:Type 2 diabetes mellitus with hemoglobin A1c goal of less than 7.0% ([facility]) TAKE TWO TABLETS BY MOUTH WITH BREAKFAST, ONE TABLET WITH LUNCH AND ONE TABLET WITH DINNER 360 Tablet 3 03/18/2024 5 Active Additional Information Patient taking differently: 10 mg, Two in the morning and one with dinner, Reported on 07/12/2024 Trulicity 3 MG/0.5ML Subcutaneous Solution Pen-injector (Dulaglutide)Loyda cations:Type 2 diabetes, HbA1C goal < 8% ([facility]) Inject 3 mg under the skin once a week for 28 days. 2 mL 04/22/2024 Active DULoxetine HCl 20 MG Oral Capsule Delayed Release Particles (Cymbalta)Indicat ions:Polymyalgia rheumatica (HCC) TAKE ONE CAPSULE BY MOUTH EVERY DAY. DO NOT CUT, CRUSH, OR CHEW. 100 Capsule 1 06/16/2024 Active Alendronate Sodium 70 MG Oral Tablet (Fosamax) TAKE ONE TABLET BY MOUTH ONCE A WEEK WITH 8 OZ OF WATER 30 MINUTES BEFORE FIRST MEAL OF THE DAY. REMAIN UPRIGHT FOR 30 MINUTES AFTER TAKING TABLET 15 Tablet 2 07/01/2024 Active Atorvastatin Calcium 20 MG Oral Tablet (Lipitor) Take 1 Tablet by mouth in the morning. 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 Type 2 diabetes, HbA1C goal < 8% 07/26/2009 Overview: Modified per Diabetes protocol #14. ICD-10 update of inactive term Permanent atrial fibrillation 10/19/2008 ADVANCE DIRECTIVE INFORMATION 03/14/2005 Overview: Yes, Copy scanned at patient level in the electronic medical record.(Go to Action, Patient File to view) Patient aware they must notify their healthcare provider of changes. documented as of this encounter (statuses as of 08/04/2024) Resolved Problems Problem Noted Date Diagnosed Date Resolved Date Cystocele 12/12/2013 03/22/2018 Hydrocele 10/18/2013 03/22/2018 Balanitis 10/18/2013 03/22/2018 HTN, GOAL BELOW 140/80 05/31/201201/16 Overview: Per HTN Protocol #27. Anticoagulation management encounter 11/27/2010 02/05/2019 Obesity, Class I, BMI 30.0-3 4.9 (see actual BMI) 01/03/2010 02/05/2019 Overview: Per Obesity Taxonomy HTN, GOAL BELOW 130/80 11/07/200906/03 Overview: Per HTN Taxonomy. Atrial fibrillation 10/19/2008 02/06/20 19 Benign neoplasm of colon 09/16/2007 Overview: hyperplastic polyps--repeat 3 years Other viral warts 03/10/2003 03/22/2018 Overview: ICD-10 update of inactive term DM type 2, not at goal 09/09/200207/26 Overview: Modified per Diabetes protocol #14. HTN, goal below 140/90 09/09/200211/07 Overview: Per HTN Taxonomy. PURE HYPERCHOLESTEROLEM 09/09/200209/11 Overview: Per Lipid Taxonomy. OBESITY, UNSPECIFIED 09/09/2002 010 Overview: Per Obesity Taxonomy documented as of this encounter (statuses as of 08/04/2024) Immunizations Name Administration Dates Next Due COVID-19 mRNA, LNP-s, No Pre serve, 2-Dose Series (Moderna) 12/22/2020,11/24/2020 COVID-19, MRNA-LNP, 23-24, P F, 30 MCG/0.3 mL, 12 YRS AND ABOVE, IM (PFIZER-Comirnaty) 08/03/2023 COVID-19, MRNA-LNP, 24-25, P R, 30MCG/0.3ML, IM, 12YRS AND ABOVE (Pfizer-Comirnaty) 07/12/2024 COVID-19, mRNA, LNP-s, PF, B ooster, 100mcg/0.5mg [...] Assigned at Male 03/02/2019 7:46 AM EDT Gender Identity Male 03/02/2019 7:46 AM EDT Sexual Orientation Straight 03/02/2019 7: 46 AM EDT Job Start Date Occupation Industry Not on file Not on file Not on file documented as of this encounter Progress Notes * Cecy Fallon RPh - 08/04/2024 8:08 AM EDT Medication Therapy Disease Management - Anticoagulation Patient: Mitchel Mcpherson | : 1945 Subjective Patient-Reported Symptoms: Patient Findings Negatives: Signs/symptoms of thrombosis, Signs/symptoms of bleeding, Change in health, Change in alcohol use, Change in activity, Upcoming invasive procedure, Missed doses, Extra doses, Change in medications, Change in diet/appetite, Bruising Objective Current Warfarin Dose As of 08/04/2024 Warfarin maintenance plan: 2.5 mg (5 mg x 0.5) every Mon, Wed, Fri; 5 mg (5 mg x 1) all other days INR Result As of 08/04/2024 INR goal: 2.0-3.0 INR used for dosin.8 (08/04/2024) Assessment & Plan Warfarin Plan As of 08/04/2024 Full warfarin instructions: 2.5 mg every Mon, Wed, Fri; 5 mg all other days No change documented: Cecy Fallon RPh Next INR check: 09/15/2024 Repeat PT/INR in 6 week(s) Weekly dose: not changed Additional Dosing Information: Description (Takes in AM) I spent a total of 10-19 minutes (exact time 10 mins) on the date of service in preparation, delivery, and documentation of the care provided to Mitchel Mcpherson excluding any time spent in the performance of separately billed services or time spent by another provider/QHP. Cecy Amaya RPh Clinical Pharmacist 08/04/2024, 8:08 AM documented in this encounter Plan of Treatment Upcoming Encounters Date Type Department Care Team (Late st Contact Info) Description 08/08/2024 8:00 AM EDT Office Visit Ophthalmology, [address] [place] [address] Brenden Ellis, DO [address] [place] [address] 08/30/2024 8:40 AM EST Office Visit Rheumatology [place] [id number] [facility] [place] [address] Isiah Perez MD [facility] [place] [address] 09/15/2024 8:00 AM EST Anticoagulation Family Practice [address] [place] [address] [facility] [phone] College, Pharmacist [address], [place] [address] 11/15/2024 8:00 AM EST Office Visit Family Practice [address] [place] [address] [facility] [phone] Artemio Truong, DO [address] 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 documented in this encounter Results * INR FINGERSTICK, POINT OF CARE (08/04/2024 8:10 AM EDT) Fingerstick INR 2.8 INR 8:16 AM EDT [facility] 56-21 Blood 08/04/2024 8:10 AM EDT 08/04/2024 8:16 AM EDT [facility] 56-21 - 08/04/2024 8:16 AM EDT Therapeutic ranges for non-operative patients: Prophylaxsis/treatment of DVT: (Range:2.0-3.0) Treatment of pulmonary embolism:(Range:2.0-3.0) Prevention of systemic embolism from: -tissue heart valves -acute myocardial infarction -valvular heart disease -atrial fibrillation (Range: 2.0-3.0) Mechanical prosthetic valves: (Range: 2.5-3.5) Cecy Roche [facility] LAB PO INT OF CARE TEST DOCKED DEVICE UNSOLICITED RESULTS [facility] 56-21 [address] [facility] [place] [phone], [facility] documented in this encounter Visit Diagnoses Diagnosis Anticoagulation management encounter- Primary Encounter for therapeutic drug monitoring Permanent atrial fibrillation (HCC) Atrial fibrillation half-way current use of anticoagulant therapy documented in this encounter Care Teams Equal Opportunity Director Relationship Specialty Start Date End Date Artemio Truong DO [address] [facility] [place] [address] PCP - General Internal Medicine 04/20/24 documented as of this encounter"
--- OUTSIDE RECORDS SUMMARY | 2024-11-06 08:41 | External Medical Summary | Summary of Care ---
Author Name Unknown Organization [facility] Address [address] [place] [facility] [place] [place] [place] [address] Phone [phone] Care Team Providers Care Assistant Manager Name Role Phone Artemio Truong DO Primary Care Provider [phone] Reason for Visit * Reason Comments Rheum Follow Up Follow up - PMR Encounter Details Date Type Department Care Team (Late st Contact Info) Description 08/30/2024 8:40 AM EST Office Visit Rheumatology [place] [phone] [place] [address] Isiah Perez MD [address] [place] [address] PMR (polymyalgia rheumatica) ([facility])*; Steroid-induced osteoporosis; senior living current use of systemic steroids Allergies No known active allergiesdocumented as of this encounter (statuses as of 08/30/2024) Medications Blood Glucose Monitoring Suppl (ONETOUCH ULTRA 2) w/Device KITIndications:T ype 2 diabetes mellitus with hemoglobin A1c goal of less than 7.0% ([facility]) 12/16/19 19 Active acetaminophen (TYLENOL) 500 MG Tablet Take 1-2 Tablets by mouth every 6 hours as needed for Pain. Activ e Vitamin D3 50 MCG (1999) Oral Capsule Take 1 Capsule by mouth every evening. 30 Cap 5 08/11/20 21 Active OneTouch Ultra Blue In Vitro Strip (Glucose Blood)Indication s:Type 2 diabetes mellitus with hemoglobin A1c goal of less than 7.0% (HCC) Use to test once daily. DX:E11.9 100 Strip 3 07/28/20 Active OneTouch Delica Lancets 33G Use to test once daily. DX: E11.9 100 Each 3 07/28/20 22 Active Warfarin Sodium 5 MG Oral Tablet (Coumadin)Indica tions:Chronic atrial fibrillation (HCC) Take 1 tablet by mouth once daily or as directed by anticoagulation clinic 90 Tablet 3 4 11:01 AM EST 10/21/19 24 Active Vitamin B 12 500 MCG Oral TabletIndication s:Vitamin B 12 deficiency Take 1 Tablet by mouth daily. 11/04/19 24 Active metFORMIN HCl 1000 MG Oral Tablet (Glucophage)Loyda cations:Type 2 diabetes mellitus with hemoglobin A1c goal of less than 7.0% (HCC) TAKE ONE TABLET BY MOUTH TWICE A DAY WITH FOOD. 200 Tablet 3 4 3:54 PM EDT 12/21/19 24 025 Active Sildenafil Citrate 20 MG Oral Tablet (Revatio)Indicat ions:Other male erectile dysfunction take 5 tablets by mouth daily if needed for ERECTILE DYSFUNCTION TAKE 1 HOUR BEFORE SEX 20 Tablet 3 02/04/20 24 Active Trulicity 4.5 MG/0.5ML Subcutaneous Solution Pen-injector (Dulaglutide) INJECT 4.5MG UNDER THE SKIN ONCE A WEEK 6 mL 1 4 9:36 AM EDT 02/11/20 24 Active Metoprolol Tartrate 50 MG Oral Tablet (Lopressor) TAKE ONE TABLET BY MOUTH EVERY MORNING AND AT BEDTIME 200 Tablet 1 4 8:21 AM EDT 02/19/20 24 025 Active Enalapril Maleate 10 MG Oral Tablet (Vasotec) TAKE ONE TABLET BY MOUTH EVERY MORNING 100 Tablet 1 4 8:21 AM EDT 02/19/20 24 025 Active glipiZIDE 10 MG Oral Tablet (Glucotrol)Indic ations:Type 2 diabetes mellitus with hemoglobin A1c goal of less than 7.0% (HCC) TAKE TWO TABLETS BY MOUTH WITH BREAKFAST, ONE TABLET WITH LUNCH AND ONE TABLET WITH DINNER 360 Tablet 3 03/18/20 24 025 Active Additional Information Patient taking differently: 10 mg, Two in the morning and one with dinner, Reported on 08/30/2024 Trulicity 3 MG/0.5ML Subcutaneous Solution Pen-injector (Dulaglutide)Ind ications:Type 2 diabetes, HbA1C goal < 8% ([facility]) Inject 3 mg under the skin once a week for 28 days. 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 Type 2 diabetes, HbA1C goal < 8% 07/26/2009 Overview (02/05/2016): Modified per Diabetes protocol #14. ICD-10 update of inactive term Permanent atrial fibrillation 10/19/2008 documented as of this encounter (statuses as of 08/30/2024) Resolved Problems Problem Noted Date Diagnosed Date [...] as of this encounter (statuses as of 08/30/2024) Immunizations Name Administration Dates Next Due COVID-19 [...] Passive Smoke Exposure: Past Smokeless Tobacco: Never Tobacco Cessation:Counseling Given: Not Answered Alcohol Use Standard Drinks/Week Comments Yes 0 [...] on file documented as of this encounter Last Filed Vital Signs Vital Sign Reading Time Taken Comments Blood Pressure - - Pulse - - Temperature 35.7 C (96.2 F) 08/30/2024 8:36 AM ES T Respiratory Rate - - Oxygen Saturation - - Inhaled Oxygen Concentration - - Weight 86.2 kg (190 lb) 08/30/2024 8:36 AM EST Height - - Body Mass Index 27.26 07/12/2024 8:09 AM EDT documented in this encounter Progress Notes * Isiah Perez MD - 08/30/2024 8:38 AM EST Subjective: Patient seen today for further follow up evaluation of osteoporosis, polymyalgia rheumatica. Since the last visit he has remained on prednisone 5mg BID. He reports that if he works a lot - he has more fatigued. 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 He notes this more for the thighs thenthe arms. He has not had any imaging his back. He reports his BS are ok. He has remained on fosamaxonce a week. No falls. He has been hesitant to reduce steroids in the past because 10mg a day makeshim feel good. Been on this dose for many years despite tapering efforts. Will sometimes take tylenol for his back/muscle pains. Musculoskeletal ROS: . Abnormal: muscle fatigue more than pain . Pain scale (0-10): 0 Other ROS: . Constitutional: normal . Head normal . Eyes: normal . Ears, nose, throat, mouth: normal . Cardiovascular: normal . Respiratory: normal . Gastrointestinal: normal . Genitourinary: normal . Skin: normal All other ROS reviewed and negative Social History: Social History Tobacco Use Smoking status: Former Current packs/day: 0.00 Average packs/day: 1 pack/day for 30.0 years (30.0 ttl pk-yrs) Types: Cigarettes Start date: 10/12/1958 Quit date: 10/12/1988 Years since quittin.9 Passive exposure: Past Smokeless tobacco: Never Substance Use Topics Alcohol use: Yes Comment: occ Vaping/E-Cigarette Use Vaping/E-Cigarette Substances Vaping/E-Cigarette Devices Current Outpatient Medications Medication Sig Dispense Refill Blood Glucose Monitoring Suppl (Home Inventory S[pecialistsTOUCH ULTRA 2) w/Device KIT acetaminophen (TYLENOL) 500 MG Tablet Take 1-2 Tablets by mouth every 6 hours as needed for Pain. Vitamin D3 50 MCG (2000 UT) Oral Capsule Take 1 Capsule by mouth every evening. 30 Cap 5 OneTouch Ultra Blue In Vitro Strip (Glucose Blood) Use to test once daily. DX:E11.9 100 Strip 3 OneTouch Delica Lancets 33G Use to test once daily. DX: E11.9 100 Each 3 Warfarin Sodium 5 MG Oral Tablet (Coumadin) Take 1 tablet by mouth once daily or as directed by anticoagulation clinic 90 Tablet 3 Vitamin B 12 500 MCG Oral Tablet Take 1 Tablet by mouth daily. metFORMIN HCl 1000 MG Oral Tablet (Glucophage) TAKE ONE TABLET BY MOUTH TWICE A DAY WITH FOOD. 200 Tablet 3 Sildenafil Citrate 20 MG Oral Tablet (Revatio) take 5 tablets by mouth daily if needed for ERECTILEDYSFUNCTION TAKE 1 HOUR BEFORE SEX 20 Tablet 3 Trulicity 4.5 MG/0.5ML Subcutaneous Solution Pen-injector (Dulaglutide) INJECT 4.5MG UNDER THE SKINONCE A WEEK 6 mL 1 Metoprolol Tartrate 50 MG Oral Tablet (Lopressor) TAKE ONE TABLET BY MOUTH EVERY MORNING AND AT BEDTIME 200 Tablet 1 Enalapril Maleate 10 MG Oral Tablet (Vasotec) TAKE ONE TABLET BY MOUTH EVERY MORNING 100 Tablet 1 glipiZIDE 10 MG Oral Tablet (Glucotrol) TAKE TWO TABLETS BY MOUTH WITH BREAKFAST, ONE TABLET WITH LUNCH AND ONE TABLET WITH DINNER (Patient taking differently: 1 Tablet. Two in the morning and one with dinner) 360 Tablet 3 DULoxetine HCl 20 MG Oral Capsule Delayed Release Particles (Cymbalta) TAKE ONE CAPSULE BY MOUTH EVERY DAY. DO NOT CUT, CRUSH, OR CHEW. 100 Capsule 1 Alendronate Sodium 70 MG Oral Tablet (Fosamax) TAKE ONE TABLET BY MOUTH ONCE A WEEK WITH 8 OZ OF WATER 30 MINUTES BEFORE FIRST MEAL OF THE DAY. REMAIN UPRIGHT FOR 30 MINUTES AFTER TAKING TABLET 15 Tablet 2 Atorvastatin Calcium 20 MG Oral Tablet (Lipitor) Take 1 Tablet by mouth in the morning. 100 Tablet 1 predniSONE 5 MG Oral Tablet (Deltasone) TAKE ONE TABLET BY MOUTH EVERY MORNING & ONE TABLET BEFORE BEDTIME 200 Tablet 2 Trulicity 3 MG/0.5ML Subcutaneous Solution Pen-injector (Dulaglutide) Inject 3 mg under the skin once a week for 28 days. 2 mL 0 No current facility-administered medications for this visit. Physical Exam: Temp 35.7 C (96.2 F) (Infrared ) | Wt 86.2 kg (190 lb) | BMI 27.26 kg/m | BSA 2.06 m General: alert, no distress, and well nourished HENT: normocephalic, external ears normal, no mucosal erythema, no mucosal edema, moist mucosa, no oral ulcers Eye Exam: PERRL, EOMI, conjunctiva are pink and non-injected, sclera clear Neck: supple, no adenopathy, thyroid normal size, non-tender, without nodularity Lymph: no palpable lymphadenopathy Heart: regular rate & rhythm and no gallops Lungs: clear to auscultation , no rales, wheezes or rhonchi Abdomen: abdomen soft, non-tender, and normal bowel sounds Musculoskeletal Exam: Negative straight leg testing bilaterally Good hip flexor strength and deltoid strength Good range of motion both hips without pain No tenderness to palpation over the lumbar paraspinal muscles No pain with range of motion testing of the shoulders Assessment: (M35.3) PMR (polymyalgia rheumatica) ([facility]) (primary encounter diagnosis) (M81.8, T38.0X5A) Steroid-induced osteoporosis (Z79.52) senior living current use of systemic steroids Again discussed trying to taper prednisone as he has been hesitant in the past as he has felt better at 10 mg and has stayed on this dose for many years now. Will try to have him taper to 5 mg daily.His leg symptoms seem to be more back related in wonder about spinal stenosis. Will get a back x-ray. Will update labs. Can use Tylenol up to 3 g a day. Plan: 1. Taper prednisone to 5 mg daily for PMR 2. Blood work and x-rays ordered 3. Continues on Fosamax for osteoporosis 4. Will contact with blood and x-ray results 5. May benefit from physical therapy 6. Return to clinic in 1 year Isiah Perez MD Department of Rheumatology documented in this encounter Nursing Notes * Junie Dee LPN - 08/30/2024 8:35 AM EST Chief Complaint Patient presents with Rheum Follow Up Follow up - PMR documented in this encounter Plan of Treatment Upcoming Encounters Date Type Department Care Team (Late st Contact Info) Description 09/15/2024 8:00 AM EST Anticoagulation Family Practice 65 [facility] [address] [place] [address] College, Pharmacist [address] [place] [address] 11/15/2024 8:00 AM EST Office Visit Family Practice [address] [place] [address] [place] [address] Artemio Truong, DO [address] [place] [address] 02/06/2025 8:00 AM EDT Office Visit Ophthalmology, [facility] 132 [facility] [place] [address] Brenden Ellis, DO [facility] [place] [address] 08/14/2025 9:00 AM EST Imaging Radiology, [place] [id number] [facility] [address] 08/31/2025 8:30 AM EST Office Visit Rheumatology [address] [place] [address] Iván Golden CRNP [address] [place] [address] [place] [address] Scheduled Orders Name Type Priority Associated Diagnoses Orde r Schedule 25-HYDROXY VITAMIN D Lab Routine PMR (polymyalgia rheumatica) ([facility]) Expected: 08/30/2024, Expires: 08/30/2025 ERYTHROCYTE SEDIMENTATION RATE (ESR) Lab Routine PMR (polymyalgia rheumatica) ([facility]) Expected: 08/30/2024, Expires: 08/30/2025 CBC WITH WBC DIFFERENTIAL Lab Routine PMR (polymyalgia rheumatica) ([facility]) Expected: 08/30/2024, Expires: 08/30/2025 COMPREHENSIVE METABOLIC PANEL Lab Routine PMR (polymyalgia rheumatica) ([facility]) Expected: 08/30/2024, Expires: 08/30/2025 XR L SPINE MINIMUM 4 VIEWS Medical Imaging Routine PMR (polymyalgia rheumatica) ([facility]) Ordered: 08/30/2024 DEXA SCAN/BONE MINERAL AXIAL Medical Imaging Routine Steroid-induced osteoporosis senior living current use of systemic steroids Ordered: 08/30/2024 Health Maintenance Due Date Last Done Comments [...] D LEVEL ONCE IN A LIFETIME-USE SMARTSET# [id number] Completed 11/26/2021, 08/09/2021, 09/02/2019, Additional history exists [...] Not on filedocumented as of this encounter Visit Diagnoses Diagnosis PMR (polymyalgia rheumatica) (HCC)- Primary Polymyalgia rheumatica Steroid-induced osteoporosis 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
--- OUTSIDE RECORDS SUMMARY | 2024-11-06 08:41 | External Medical Summary | Summary of Care ---
Author Name Unknown Organization [facility] Address [address] [place] [address] Phone [phone] Care Team Providers Care Pick And Shovel Worker Name Role Phone Pascual Truong DO Primary Care Provider [phone] Reason for Visit * Reason Comments Medication Refill Encounter Details Date Type Department Care Team (Late st Contact Info) Description 10/21/2024 Refill Family Practice [address], [place] [address] [place] [address] Pascual Truong DO [address] [place] [address] Chronic atrial fibrillation (HCC) Allergies No known active allergiesdocumented as of this encounter (statuses as of 10/21/2024) Medications Blood Glucose Monitoring Suppl (ONETOUCH ULTRA 2) w/Device KITIndications: Type 2 diabetes mellitus with hemoglobin A1c goal of less than 7.0% ([facility]) 12/16/19 19 Active acetaminophen (TYLENOL) 500 MG Tablet Take 1-2 Tablets by mouth every 6 hours as needed for Pain. Active Vitamin D3 50 MCG (1999 [place]) Oral Capsule Take 1 Capsule by mouth every evening. 30 Cap 5 08/11/20 21 Active OneTouch Ultra Blue In Vitro Strip (Glucose Blood)Indicatio ns:Type 2 diabetes mellitus with hemoglobin A1c goal of less than 7.0% ([facility]) Use to test once daily. DX:E11.9 100 Strip 3 07/28/20 22 Active OneTouch Delica Lancets 33G Use to test once daily. DX: E11.9 100 Each 3 07/28/20 22 Active Vitamin B 12 500 MCG Oral [...] SEX 20 Tablet 3 02/04/20 24 Active glipiZIDE 10 MG Oral Tablet (Glucotrol)Loyda cations:Type 2 diabetes mellitus with hemoglobin A1c goal of less than 7.0% (HCC) TAKE TWO TABLETS BY MOUTH WITH BREAKFAST, ONE TABLET WITH LUNCH AND ONE TABLET WITH DINNER 360 Tablet 3 03/18/20 24 025 Active Additional Information Patient taking differently: 10 mg, Two in the morning and one with dinner, Reported on 08/30/2024 DULoxetine HCl 20 MG Oral Capsule Delayed Release Particles (Cymbalta)Indic ations:Polymyal kyle rheumatica (HCC) TAKE ONE CAPSULE BY MOUTH EVERY DAY. DO NOT CUT, CRUSH, OR CHEW. 100 Capsule 1 4 9:26 AM EST 06/16/20 24 Active Alendronate Sodium 70 MG Oral Tablet (Fosamax) TAKE ONE TABLET BY MOUTH ONCE A WEEK WITH 8 OZ OF WATER 30 MINUTES BEFORE FIRST MEAL OF THE DAY. REMAIN UPRIGHT FOR 30 MINUTES AFTER TAKING TABLET 15 Tablet 2 4 9:26 AM EST 07/01/20 24 Active Atorvastatin Calcium 20 MG [...] AND AT BEDTIME 200 Tablet 1 4 6:22 PM EST 09/05/20 24 Active Enalapril Maleate 10 MG Oral Tablet (Vasotec) TAKE ONE TABLET BY MOUTH EVERY MORNING 100 Tablet 4 6:22 PM EST 09/05/20 24 Active Trulicity 4.5 MG/0.5ML Subcutaneous Solution Auto-injector (Dulaglutide)In dications:Type 2 diabetes, HbA1C goal < 8% (HCC) Inject 4.5 mg under the skin once a week. 2 mL 11 4 2:13 PM EST 09/15/20 24 Active Warfarin Sodium 5 MG Oral Tablet (Coumadin)Indic ations:Chronic atrial fibrillation (HCC) Take 1 tablet by mouth once daily or as directed by anticoagulation clinic 90 Tablet 3 10/21/19 25 Active Warfarin Sodium 5 MG Oral Tablet (Coumadin)Indic ations:Chronic atrial fibrillation (HCC) Take 1 tablet by mouth once daily or as directed by anticoagulation clinic 90 Tablet 3 4 11:01 AM EST 10/21/19 24 025 Discontin ued(Refil l) documented as of this encounter (statuses as of 10/21/2024) Active Problems Problem Noted Date Diagnosed Date Other male erectile dysfunction 06/23/2023 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 Type 2 diabetes, HbA1C goal < 8% 07/26/2009 Overview (02/05/2016): Modified per Diabetes protocol #14. ICD-10 update of inactive term Permanent atrial fibrillation 10/19/2008 documented as of this encounter (statuses as of 10/21/2024) Resolved Problems Problem Noted Date Diagnosed Date [...] as of this encounter (statuses as of 10/21/2024) Immunizations Name Administration Dates Next Due COVID-19 mRNA, LNP-s, No Pre serve, 2-Dose Series (Moderna) 12/22/2020,11/24/2020 COVID-19, MRNA-LNP, PF, 30 M CG/0.3 mL, 12 YRS AND ABOVE, IM ([employer] [employer]) 07/12/2024,08/03/2023 COVID-19, mRNA, LNP-s, PF, B ooster, [...] encounter Miscellaneous Notes * Telephone Encounter - Audi Merino [facility] - 10/21/2024 12:13 PM EST Signed Prescriptions: Disp Refills Warfarin Sodium 5 MG Oral Tablet (Coumadin)90 Tab*3 Sig: Take 1 tablet by mouth once daily or as directed by anticoagulation clinic Authorizing Provider: PASCUAL TRUONG Ordering User: AUDI MERINO * Telephone Encounter - Audi Merino [facility] - 10/21/2024 12:13 PM EST Warfarin Plan As of 09/15/2024 Full warfarin instructions: 2.5 mg every Mon, Wed, Fri; 5 mg all other days No change documented: Cecy Fallon, [facility] Next INR check: 11/10/2024 Per [facility] anticoag. Refills approved. Thank you, Audi Merino, PharmD Clinical Pharmacist [facility] 10/21/24 12:13 PM [phone] documented in this encounter Plan of Treatment Upcoming Encounters Date Type Department Care Team (Late st Contact Info) Description 11/15/2024 8:00 AM EST Office Visit Family Practice 65 [facility] [address] [place] [id number] Pascual Truong, 293 [place] [address] 11/15/2024 8:00 AM EST Anticoagulation Family Practice 65 [facility] [address] [facility] [id number] College, Pharmacist [address] [address] 02/06/2025 8:00 AM EDT Office Visit Ophthalmology, [facility] [address] [place] [address] Brenden Ellis DO [address] [place] [address] 08/14/2025 9:00 AM EST Imaging Radiology [facility] [address] [place] [id number] 08/31/2025 8:30 AM EST Office Visit Rheumatology [place] [id number] [facility] [place] [address] Iván Merino CRNP [facility] [place] [address] Health Maintenance Due Date Last Done Comments Adult Wellness Visit 03/31/2015 03/31/2014 Depression Screening 11/03/2024 11/03/2023 Diabetic Eye Exam 11/23/2024 11/23/2023, , 11/23/2023, Additional history exists B-12 12/01/2024 12/01/2023, 10/13, 01/08/2023, Additional history exists HbA1c 01/10/2025 07/12/2024, 02/11, 11/03/2023, Additional history exists Albumin/Creatinine Ratio 07/12/2025 024, 06/23/2023, 09/01/2022, Additional history exists Diabetic Foot Exam 07/12/2025 07/12/2024, 0 04/29/2023, 07/23/2022, Additional history exists DXA Scan 08/10/2025 08/10/2023, 07/14, 08/05/2021, Additional history exists GFR 09/05/2025 09/05/2024, 10/13, 01/08/2023, Additional history exists DTap/Tdap Vaccines (3 - Td or Tdap) 07/23/2032 07/23/2022, 04/19/2012, 01/29/2001 Pneumococcal Vaccine: 50+ Years Completed 03/03/2016, 01/03/2009, 09/01/2003 Zoster Vaccines Completed 03/27/2022, 11/26/2021 Influenza Vaccine (FLU shot) Completed , 06/24/2024, 06/23/2023, Additional history exists COVID-19 Vaccine Completed 07/12/2024, , 08/05/2022, Additional history exists VITAMIN D LEVEL ONCE IN A LIFETIME-USE SMARTSET# [id number] Completed 09/05/2024, 11/26/2021, 08/09/2021, Additional history exists HPV (Gardasil) Vaccine Aged [...] as of this encounter Visit Diagnoses Diagnosis Chronic atrial fibrillation (HCC) Atrial fibrillation documented in this encounter Care Teams Pick And Shovel Worker Relationship Specialty Start Date End Date Pascual Truong DO [address] [place] [address] PCP - General Internal Medicine 04/20/24 documented as of this encounter
--- OUTSIDE RECORDS SUMMARY | 2024-11-06 08:41 | External Medical Summary | Summary of Care ---
Author Name Unknown Organization [facility] Address [address] [facility] [address] Phone [phone] Care Team Providers Care Cinder Man Name Role Phone Artemio Truong DO Primary Care Provider [phone] Reason for Visit * Reason Comments Dosage Adjustment In Person (Anticoag Cl inic) Encounter Details Date Type Department Care Team (Late st Contact Info) Description 09/15/2024 8:00 AM EST Anticoagulation Family Practice 65 [facility] 293 [place] [address] College, Pharmacist [address] [address] Anticoagulation management encounter*; Permanent atrial fibrillation (HCC); [employer] current use of anticoagulant therapy Allergies No known active allergiesdocumented as of this encounter (statuses as of 09/15/2024) Medications Blood Glucose Monitoring Suppl (IbetorTOUCH ULTRA 2) w/Device KITIndications: Type 2 diabetes mellitus with hemoglobin A1c goal of less than 7.0% ([facility]) 12/16/19 19 Active acetaminophen (TYLENOL) 500 MG Tablet Take 1-2 Tablets by mouth every 6 hours as needed for Pain. Active Vitamin D3 50 MCG (1999) Oral Capsule Take 1 Capsule by mouth every evening. 30 Cap 5 08/11/20 21 Active OneTouch Ultra Blue In Vitro Strip (Glucose Blood)Indicatio ns:Type 2 diabetes mellitus with hemoglobin A1c goal of less than 7.0% ([facility]) Use to test once daily. DX:E11.9 [...] 1 4 9:36 AM EDT 02/11/20 24 024 Discontin ued(Refil l) Trulicity 3 MG/0.5ML Subcutaneous Solution Pen-injector (Dulaglutide)In dications:Type 2 diabetes, HbA1C goal < 8% ([facility]) Inject 3 mg under the skin once a week for 28 days. 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 PMR (polymyalgia rheumatica) 01/10/2011 assisted current use of systemic steroids 01/10 [employer] current use of anticoagulant therapy 0 11/27/2010 Overview (07/13/2017): ICD-10 update of inactive term DYSLIPIDEMIA, GOAL LDL BELOW 100 09/20/2009 Overview (09/20/2009): Per Lipid Taxonomy. Type 2 diabetes, HbA1C goal < 8% 07/26/2009 Overview (02/05/2016): Modified per Diabetes protocol #14. ICD-10 update of inactive term Permanent atrial fibrillation 10/19/2008 documented as of this encounter (statuses as of 09/15/2024) Resolved Problems Problem Noted Date Diagnosed Date [...] as of this encounter (statuses as of 09/15/2024) Immunizations Name Administration Dates Next Due COVID-19 [...] this encounter Progress Notes * Cecy Fallon RP - 09/15/2024 8:18 AM EST Medication Therapy Disease Management - Anticoagulation Patient: Mitchel Mcpherson | : 1945 Subjective Patient-Reported Symptoms: Patient Findings Positives: Change in diet/appetite (plans to eat scrapple - discussed impact on INR) Negatives: Signs/symptoms of thrombosis, Signs/symptoms of bleeding, Change in health, Change in alcohol use, Change in activity, Upcoming invasive procedure, Missed doses, Extra doses, Change in medications, Bruising Objective Current Warfarin Dose As of 09/15/2024 Warfarin maintenance plan: 2.5 mg (5 mg x 0.5) every Mon, Wed, Fri; 5 mg (5 mg x 1) all other days INR Result As of 09/15/2024 INR goal: 2.0-3.0 INR used for dosin.3 (09/15/2024) Assessment & Plan Warfarin Plan As of 09/15/2024 Full warfarin instructions: 2.5 mg every Mon, Wed, Fri; 5 mg all other days No change documented: Cecy Fallon [facility] Next INR check: 11/10/2024 Repeat PT/INR in 8 week(s) Weekly dose: not changed Additional Dosing Information: Description (Takes in AM) I spent a total of 10-19 minutes (exact time 10 mins) on the date of service in preparation, delivery, and documentation of the care provided to Mitchel Mcpherson excluding any time spent in the performance of separately billed services or time spent by another provider/QHP. Cecy Amaya [facility] Clinical Pharmacist 09/15/2024, 8:18 AM documented in this encounter Plan of Treatment Upcoming Encounters Date Type Department Care Team (Late st Contact Info) Description 11/15/2024 8:00 AM EST Office Visit Family Practice [address] [place] [address] 293 [place] [address] Artemio Truong, 293 [facility] [place] [address] 11/15/2024 8:00 AM EST Anticoagulation Family Practice [address] [place] [address] 293 [place] [address] College, Pharmacist [address] [place] [address] [place] [address] 02/06/2025 8:00 AM EDT Office Visit Ophthalmology, [facility] [address] [place] [address] Brenden Ellis, DO [address] [place] [address] 08/14/2025 9:00 AM EST Imaging Radiology, [address] [place] [address] 08/31/2025 8:30 AM EST Office Visit Rheumatology [place] [address] Bertha [place] [address] Iván Golden CRNP [address] [place] [address] Health Maintenance Due Date Last Done Comments [...] Vaccine: 65+ Years Completed 03/03/2016, 01/03/2009, 09/01/2003 Zoster Vaccines Completed 03/27/2022, 11/26/2021 Influenza Vaccine (FLU shot) Completed , 06/24/2024, 06/23/2023, Additional history exists COVID-19 Vaccine Completed 07/12/2024, , 08/05/2022, Additional history exists VITAMIN D LEVEL ONCE IN A LIFETIME-USE SMARTSET# [id number] Completed 09/05/2024, 11/26/2021, 08/09/2021, Additional history exists [...] Comments INR FINGERSTICK, POINT OF CARE STAT 09/15/2024 8:06 AM EST Permanent atrial fibrillation (HCC) Anticoagulation management encounter assisted current use of anticoagulant therapy documented in this encounter Results * INR FINGERSTICK, POINT OF CARE (09/15/2024 8:06 AM EST) Fingerstick INR 2.3 INR 8:16 AM EST [facility] 56- Blood 09/15/2024 8:06 AM EST 09/15/2024 8:16 AM EST Narrative [facility] 56- - 09/15/2024 8:16 AM EST Therapeutic ranges for non-operative patients: Prophylaxsis/treatment of DVT: (Range:2.0-3.0) Treatment of pulmonary embolism:(Range:2.0-3.0) Prevention of systemic embolism from: -tissue heart valves -acute myocardial infarction -valvular heart disease -atrial fibrillation (Range: 2.0-3.0) Mechanical prosthetic valves: (Range: 2.5-3.5) Cecy Roche [facility] LAB PO INT OF CARE TEST DOCKED DEVICE UNSOLICITED RESULTS Final Result [facility] 56- [address] [place] [address], [facility] documented in this encounter Visit Diagnoses Diagnosis Anticoagulation management encounter- Primary Encounter for therapeutic drug monitoring Permanent atrial fibrillation (HCC) Atrial fibrillation [employer] current use of anticoagulant therapy documented in this encounter Care Teams Cinder Man Relationship Specialty Start Date End Date Artemio Truong DO [address] [place] [address] PCP - General Internal Medicine 04/20/24 documented as of this encounter"
--- OUTSIDE RECORDS SUMMARY | 2024-11-06 08:41 | External Medical Summary | Summary of Care ---
Author Name Unknown Organization [facility] Address [address] [place] [address] Phone [phone] Care Team Providers Care Rf Microwave Engineer Name Role Phone Artemio Truong DO Primary Care Provider [phone] Encounter Details Date Type Department Care Team (Late st Contact Info) Description 11/01/2024 Population Health External Data Unspecified Department Allergies No known active allergiesdocumented as of this encounter (statuses as of 11/01/2024) Medications Blood Glucose Monitoring Suppl (Prim’VisionTOUCH ULTRA 2) w/Device KITIndications:T ype 2 diabetes mellitus with hemoglobin A1c goal of less than 7.0% (HCC) 12/16/19 19 Active acetaminophen (TYLENOL) 500 MG Tablet Take 1-2 Tablets by mouth every 6 hours as needed for Pain. Activ e Vitamin D3 50 MCG (2000 UT) Oral [...] 24 Active glipiZIDE 10 MG Oral Tablet (Glucotrol)Indic [...] MG Oral Tablet (Deltasone)Indic ations:PMR (polymyalgia rheumatica) (HCC) TAKE ONE TABLET BY [...] TABLET BY MOUTH EVERY MORNING 100 Tablet 11/25/202 4 6:22 PM EST 09/05/20 24 Active Trulicity 4.5 MG/0.5ML Subcutaneous Solution Auto-injector (Dulaglutide)Ind ications:Type 2 diabetes, HbA1C goal < 8% (HCC) Inject 4.5 mg under the skin once a week. 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 PMR (polymyalgia rheumatica) 01/10/2011 intermediate current use of systemic steroids 01/10 intermediate current use of anticoagulant therapy 0 11/27/2010 Overview (07/13/2017): ICD-10 update of inactive term DYSLIPIDEMIA, GOAL LDL BELOW 100 09/20/2009 Overview (09/20/2009): Per Lipid Taxonomy. Type 2 diabetes, HbA1C goal < 8% 07/26/2009 Overview (02/05/2016): Modified per Diabetes protocol #14. ICD-10 update of inactive term Permanent atrial fibrillation 10/19/2008 documented as of this encounter (statuses as of 11/01/2024) Resolved Problems Problem Noted Date Diagnosed Date [...] as of this encounter (statuses as of 11/01/2024) Immunizations Name Administration Dates Next Due COVID-19 [...] 11/03/2023 Does the household have a re lar source of income? (Household - for ages [...] on file documented as of this encounter Plan of Treatment Upcoming Encounters Date Type Department Care Team (Late st Contact Info) Description 11/15/2024 8:00 AM EST Office Visit Family Practice 65 [facility] 293 [facility] [id number] Artemio Truong, 293 [facility] [address] 11/15/2024 8:00 AM EST Anticoagulation Family Practice 65 [facility] 293 [facility] [address] College, Pharmacist 65 [facility] 293 [facility] [address] 02/06/2025 8:00 AM EDT Office Visit Ophthalmology, [facility] 132 [facility] [place] [address] Brenden Ellis DO [address] [place] [address] 08/14/2025 9:00 AM EST Imaging Radiology [facility] [address] [place] [phone] 08/31/2025 8:30 AM EST Office Visit Rheumatology [facility] [address] [place] [phone] Iván Golden CRNP [facility]0 [facility] [address] Health Maintenance Due Date Last Done Comments [...] D LEVEL ONCE IN A LIFETIME-USE SMARTSET# [id number] Completed 09/05/2024, 11/26/2021, 08/09/2021, Additional history exists [...] filedocumented as of this encounter Care Teams Rf Microwave Engineer Relationship Specialty Start Date End Date Artemio Truong DO [address] [facility] [place] [address] PCP - General Internal Medicine 04/20/24 documented as of this encounter
--- OUTSIDE RECORDS SUMMARY | 2024-11-06 08:41 | External Medical Summary | Summary of Care ---
Author Name Unknown Organization [facility] Address [address] [place] [address] Phone [phone] Care Team Providers Care Design Project Manager Name Role Phone Artemio Truong DO Primary Care Provider [phone] Encounter Details Date Type Department Care Team (Late st Contact Info) Description 08/18/2024 Population Health External Data Unspecified Department Allergies No known active allergiesdocumented as of this encounter (statuses as of 08/25/2024) Medications Blood Glucose Monitoring Suppl (ONETOUCH ULTRA 2) w/Device KITIndications:T ype 2 diabetes mellitus with hemoglobin A1c goal of less than 7.0% ([facility]) 12/16/19 19 Active acetaminophen (TYLENOL) 500 MG Tablet Take 1-2 Tablets by mouth every 6 hours as needed for Pain. Activ e Vitamin D3 50 MCG (1999 UT) Oral Capsule Take 1 Capsule by mouth every evening. 30 Cap 5 08/11/20 21 Active OneTouch Ultra Blue In Vitro Strip (Glucose Blood)Indication s:Type 2 diabetes mellitus with hemoglobin A1c goal of less than 7.0% ([facility]) Use to test once daily. 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 PMR (polymyalgia rheumatica) 01/10/2011 shelter current use of systemic steroids 01/10 shelter current use of anticoagulant therapy 0 11/27/2010 Overview (07/13/2017): ICD-10 update of inactive term DYSLIPIDEMIA, GOAL LDL BELOW 100 09/20/2009 Overview (09/20/2009): Per Lipid Taxonomy. Type 2 diabetes, HbA1C goal < 8% 07/26/2009 Overview (02/05/2016): Modified per Diabetes protocol #14. ICD-10 update of inactive term Permanent atrial fibrillation 10/19/2008 documented as of this encounter (statuses as of 08/25/2024) Resolved Problems Problem Noted Date Diagnosed Date [...] as of this encounter (statuses as of 08/25/2024) Immunizations Name Administration Dates Next Due COVID-19 mRNA, LNP-s, No Pre serve, 2-Dose Series (Moderna) 12/22/2020,11/24/2020 COVID-19, MRNA-LNP, PF, 30 M CG/0.3 mL, 12 YRS AND ABOVE, IM (Covestor-Comirnat) 07/12/2024,08/03/2023 COVID-19, mRNA, LNP-s, PF, B ooster, 100mcg/0.5mg (Moderna) 03/08/2022,08/23/2021 Covid-19, Mrna, Lnp-s, Pf, B ivalent, 30 Mcg, IM, 12 yrs and above (ClassPass) 08/05/2022 Pneumococcal Conjugate Vacc, 13 Valent (Prevnar) [...] 08/30/2024 8:40 AM EST Office Visit Rheumatology [place] [address] [facility] [place] [address] Isiah Perez MD [facility]0 [facility] [place] [address] 09/15/2024 8:00 AM EST Anticoagulation Family Practice 65 [facility] 293 [facility] [address] College, Pharmacist [address] [place] [address] 11/15/2024 8:00 AM EST Office Visit Family Practice 65 [facility] 293 [place] [address] Artemio Truong, 293 [facility] [address] 02/06/2025 8:00 AM EDT Office Visit Ophthalmology, [facility] [address] [place] [address] Brenden Ellis, DO [address] [place] [address] Health Maintenance Due Date Last Done Comments [...] D LEVEL ONCE IN A LIFETIME-USE SMARTSET# [id number] Completed 11/26/2021, 08/09/2021, 09/02/2019, Additional history exists [...] filedocumented as of this encounter Care Teams Design Project Manager Relationship Specialty Start Date End Date Artemio Truong DO 293 [facility] [address] PCP - General Internal Medicine 04/20/24 documented as of this encounter
--- OUTSIDE RECORDS SUMMARY | 2024-11-06 08:41 | External Medical Summary ---
Author Name Unknown Address Unknown Organization [id number]:[facility] - [address] [facility] [address] Laboratory Report Ordering Provider Test Date Status OVI HERRMANN 09/05/2024 11:35:24 Final Observation Date Value Abnormality Reference (Units ) Status SYNC LEUKOCYTES IN BLOOD BY AUTOMATED COUNT 09/05/2024 11:35:24 10.66 4.00-10.80 (K/uL) Final Segs 09/05/2024 11:35:24 68.8 40.0-75.0 (%) Final Lymphs % 09/05/2024 11:35:24 18.4 18.0-42.0 (%) Final Monos 09/05/2024 11:35:24 9.8 1.0-11.0 (%) Final Eosinophils 09/05/2024 11:35:24 1.9 0.0-6.0 (%) Final Basos 09/05/2024 11:35:24 0.4 0.0-2.0 (%) Final Immature Granulocyte, Percent 09/05/2024 11:35:24 0.7 0.0-2.0 (%) Final Absolute Segs 09/05/2024 11:35:24 7.35 1.80-7.70 (K/uL) Final Lymphs, absolute 09/05/2024 11:35:24 1.96 1.00-4.80 (K/ul) Final Monos, Abs 09/05/2024 11:35:24 1.04 0.00-1.10 (K/uL) Final Eos, Abs 09/05/2024 11:35:24 0.20 0.00-0.70 (K/uL) Final Basos, Abs 09/05/2024 11:35:24 0.04 0.00-0.20 (K/uL) Final Immature Granulocytes, Number 09/05/2024 11:35:24 0.07 0.00-0.20 (K/uL) Final Performing Location [facility] - [facility] [address] [facility] [address]
--- OUTSIDE RECORDS SUMMARY | 2024-11-06 08:41 | External Medical Summary ---
Author Name Unknown Address Unknown Organization [id number]:[facility] - [address] [place] [address] Laboratory Report Ordering Provider Test Date Status OVI HERRMANN 09/05/2024 11:35:24 Final Observation Date Value Abnormality Reference (Units ) Status Erythrocyte sedimentation rate by Photometric method 09/05/2024 11:35:24 16 <20 (mm/hour) Final Performing Location [facility] - [address] [place] [address]
--- OUTSIDE RECORDS SUMMARY | 2024-11-06 08:41 | External Medical Summary ---
Author Name Unknown Address Unknown Organization [id number]:[facility] - [address] [facility] [place] [address] Laboratory Report Ordering Provider Test Date Status ALIZEOVI 09/05/2024 11:35:24 Final Observation Date Value Abnormality Reference (Units ) Status BUN 09/05/2024 11:35:24 24 Above high normal 6-20 (mg/dL) Final Creatinine 09/05/2024 11:35:24 1.0 0.6-1.2 (mg/dL) Final Glomerular filtration rate/1.73 sq M.predicted [Volume Rate/Area] in Serum, Plasma or Blood by Creatinine-based formula (CKD-EPI) 09/05/2024 11:35:24 73 >=60 (mL/min) Final eGFR is calculated based on the CKD-EPI 2020 equation. Sodium 09/05/2024 11:35:24 138 135-146 (m mol/L) Final Potassium 09/05/2024 11:35:24 4.4 3.5-5.1 (m mol/L) Final Cl 09/05/2024 11:35:24 100 98-107 (mm ol/L) Final CO2 09/05/2024 11:35:24 25 22-32 (mmo l/L) Final Anion gap 09/05/2024 11:35:24 13 7-15 (mmol /L) Final Glucose 09/05/2024 11:35:24 188 Above high normal 70 -120 (mg/dL) Final Albumin 09/05/2024 11:35:24 4.1 3.8-5.0 (g /dL) Final AST (Aspartate aminotransferase) 09/05/2024 11:35:24 20 10-50 (U/L) Fin al Alk Phos 09/05/2024 11:35:24 40 35-130 (U/ L) Final Bilirubin, Total 09/05/2024 11:35:24 0.3 <=1 .2 (mg/dL) Final Calcium 09/05/2024 11:35:24 9.5 8.4-10.2 ( mg/dL) Final Protein 09/05/2024 11:35:24 6.5 6.0-8.3 (g /dL) Final ALT (Alanine aminotransferase) 09/05/2024 11:35:24 28 10-50 (U/L) Carter gutiérrez Performing Location [facility] - [address] [facility] [address]
--- OUTSIDE RECORDS SUMMARY | 2024-11-06 08:41 | External Medical Summary ---
Author Name Unknown Address Unknown Organization : Laboratory Report Ordering Provider Test Date Status ROBSON GARDNER 08/04/2024 08:10:53 Final Therapeutic ranges for non-o perative patients:
Prophylaxsis/treatment of DVT: (Range:2.0-3.0)
Treatment of pulmonary embolism:(Range:2.0-3.0)
Prevention of systemic embolism from:
-tissue heart valves
-acute myocardial infarction
-valvular heart disease
-atrial fibrillation
(Range: 2.0-3.0)
Mechanical prosthetic valves: (Range: 2.5-3.5) Observation Date Value Abnormality Reference (Units ) Status INR in Capillary blood by Coagulation assay 08/04/2024 08:10:53 2.8 (INR) Final Performing Location
--- OUTSIDE RECORDS SUMMARY | 2024-11-06 08:41 | External Medical Summary | Summary of Care ---
Author Name Unknown Organization [facility] Address [address] [place] [address] Phone [phone] Care Team Providers Care Manager Food Safety Name Role Phone Artemio Truong DO Primary Care Provider Encounter Details Date Type Department Care Team (Late st Contact Info) Description 09/05/2024 11:30 AM EST Documentation Lab 65 [facility] [address] [place] [address] [place], Lab [address] [address] PMR (polymyalgia rheumatica) ([facility]) Allergies No known active allergiesdocumented as of this encounter (statuses as of 09/07/2024) Medications Blood Glucose Monitoring Suppl (ONETOUCH ULTRA 2) w/Device KITIndications:T ype 2 diabetes mellitus with hemoglobin A1c goal of less than 7.0% ([facility]) 12/16/19 19 Active acetaminophen (TYLENOL) 500 MG Tablet Take 1-2 Tablets by mouth every 6 hours as needed for Pain. Activ e Vitamin D3 50 MCG (1999 [place]) Oral Capsule Take 1 Capsule by mouth every evening. 30 Cap 5 08/11/20 21 Active OneTouch Ultra Blue In Vitro Strip (Glucose Blood)Indication s:Type 2 diabetes mellitus with hemoglobin A1c goal of less than 7.0% ([facility]) Use to test once daily. 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 Type 2 diabetes, HbA1C goal < 8% 07/26/2009 Overview (02/05/2016): Modified per Diabetes protocol #14. ICD-10 update of inactive term Permanent atrial fibrillation 10/19/2008 documented as of this encounter (statuses as of 09/07/2024) Resolved Problems Problem Noted Date Diagnosed Date [...] as of this encounter (statuses as of 09/07/2024) Immunizations Name Administration Dates Next Due COVID-19 [...] on file documented as of this encounter Nursing Notes * Data, Entry - 09/06/2024 5:32 AM ESTAutomated conversion to a Documentation Encounter documented in this encounter Plan of Treatment Upcoming Encounters Date Type Department Care Team (Late st Contact Info) Description 09/15/2024 8:00 AM EST Anticoagulation Family Practice 65 [facility] [address] [place] [address] College, Pharmacist [address] [place] [address] 11/15/2024 8:00 AM EST Office Visit Family Practice 65 [facility] [address] [facility] [address] Artemio Truong, DO [address] [facility] [address] 02/06/2025 8:00 AM EDT Office Visit Ophthalmology, [facility] 132 [facility] [place] [address] Brenden Ellis, DO [address] [place] [address] 08/14/2025 9:00 AM EST Imaging Radiology, [place] [id number] [place] [address] 08/31/2025 8:30 AM EST Office Visit Rheumatology [facility] [address] [place] [address] Iván Golden CRNP [address] [place] [address] [place] [address] Health Maintenance Due Date Last Done Comments [...] D LEVEL ONCE IN A LIFETIME-USE SMARTSET# [id number] Completed 09/05/2024, 11/26/2021, 08/09/2021, Additional history exists [...] Procedure Name Priority Date/Time Associated Diagnosis Comments DIFFERENTIAL, AUTOMATED Routine 09/05/2024 11:35 AM EST PMR (polymyalgia rheumatica) (HCC) 25-HYDROXY VITAMIN D Routine 09/05/2024 11:35 AM EST PMR (polymyalgia rheumatica) (HCC) COMPREHENSIVE METABOLIC PANEL Routine 09/05/2024 11:35 AM EST PMR (polymyalgia rheumatica) (HCC) CBC Routine 09/05/2024 11:35 AM EST PMR (polymyalgia rheumatica) (HCC) ERYTHROCYTE SEDIMENTATION RATE (ESR) Routine 09/05/2024 11:35 AM EST PMR (polymyalgia rheumatica) (HCC) CBC Routine 09/05/2024 11:35 AM EST PMR (polymyalgia rheumatica) (HCC) documented in this encounter Results * DIFFERENTIAL, AUTOMATED (09/05/2024 11:35 AM EST) WBC 10.66 4.00 - 10.80 K/uL 09/05/2024 11:36 PM EST [facility] Neutrophils % 68.8 40.0 - 75.0 % 09/05/2024 11:36 PM EST [facility] Lymphocytes % 18.4 18.0 - 42.0 % 09/05/2024 11:36 PM EST [facility] Monocytes % 9.8 1.0 - 11.0 % 09/05/2024 11:36 PM EST [facility] Eosinophils % 1.9 0.0 - 6.0 % 09/05/2024 11:36 PM EST [facility] Basophils % 0.4 0.0 - 2.0 % 09/05/2024 11:36 PM EST [facility] Immature Granulocytes % 0.7 0.0 - 2.0 % 09/05/2024 11:36 PM EST [facility] Absolute Neutrophils 7.35 1.80 - 7.70 K/uL 09/05/2024 11:36 PM EST [facility] Absolute Lymphocytes 1.96 1.00 - 4.80 K/ul 09/05/2024 11:36 PM EST [facility] Absolute Monocytes 1.04 0.00 - 1.10 K/uL 09/05/2024 11:36 PM EST [facility] Absolute Eosinophils 0.20 0.00 - 0.70 K/uL 09/05/2024 11:36 PM EST [facility] Absolute Basophils 0.04 0.00 - 0.20 K/uL 09/05/2024 11:36 PM EST [facility] Absolute Immature Granulocytes 0.07 0.00 - 0.20 K/uL 09/05/2024 11:36 PM EST [facility] Blood Venous blood specimen / Unknown Venipuncture / Unknown 09/05/2024 11:35 AM EST 09/05/2024 11:35 AM EST us Isiah Perez MD LAB BLOOD ORDERABLES Final Result Performing Organization Address City/State/[facility] Co de Phone Number LABORATORY [facility] [address] [place] [address] * (ABNORMAL) CBC (09/05/2024 11:35 AM EST) WBC 10.66 4.00 - 10.80 K/uL 09/05/2024 11:36 PM EST [facility] RBC 4.34 4.50 - 5.25 M/uL 09/05/2024 11:36 PM EST [facility] HGB 12.9(L) 14.0 - 16.8 g/dL 09/05/2024 11:36 PM EST [facility] HCT 41.3 40.0 - 48.4 % 09/05/2024 11:36 PM EST LABORATORY [facility] MCV 95.2 82.0 - 99.5 fL 09/05/2024 11:36 PM EST LABORATORY [facility] MCH 29.7 27.0 - 34.0 pg 09/05/2024 11:36 PM EST LABORATORY [facility] MCHC 31.2 32.0 - 36.0 g/dL 09/05/2024 11:36 PM EST LABORATORY [facility] RDW 13.4 11.5 - 15.5 % 09/05/2024 11:36 PM EST LABORATORY [facility] PLT 260 140 - 400 K/uL 09/05/2024 11:36 PM EST LABORATORY [facility] MPV 11.6 6.6 - 11.1 fL 09/05/2024 11:36 PM EST LABORATORY [facility] nRBCs 0 <=0 /100 WBCs 09/05/2024 11:36 PM EST LABORATORY [facility] Blood Venous blood specimen / Unknown Venipuncture / Unknown 09/05/2024 11:35 AM EST 09/05/2024 11:35 AM EST us Isiah Perez MD LAB BLOOD ORDERABLES Final Result LABORATORY [facility] [address] [place] [address] * (ABNORMAL) COMPREHENSIVE METABOLIC PANEL (09/05/2024 11:35 AM EST) BUN 24(H) 6 - 20 mg/dL 09/06/2024 3:10 AM EST [facility] CREATININE 1.0 0.6 - 1.2 mg/dL 09/06/2024 3:10 AM EST LABORATORY [facility] EGFR 73 >=60 mL/min 09/06/2024 3:10 AM EST LABORATORY [facility] Comment:eGFR is calculated b ased on the CKD-EPI 2020 equation. SODIUM 138 135 - 146 mmol/L 09/06/2024 3:10 AM EST [facility] POTASSIUM 4.4 3.5 - 5.1 mmol/L 09/06/2024 3:10 AM EST [facility] CHLORIDE 100 98 - 107 mmol/L 09/06/2024 3:10 AM EST [facility] CO2 25 22 - 32 mmol/L 09/06/2024 3:10 AM EST [facility] ANION GAP 13 7 - 15 mmol/L 09/06/2024 3:10 AM EST [facility] GLUCOSE 188(H) 70 - 120 mg/dL 09/06/2024 3:10 AM EST [facility] Albumin 4.1 3.8 - 5.0 g/dL 09/06/2024 3:10 AM EST [facility] AST 20 10 - 50 U/L 09/06/2024 3:10 AM EST [facility] Alkaline Phosphatase 40 35 - 130 U/L 09/06/2024 3:10 AM EST [facility] Bilirubin, Total 0.3 <=1.2 mg/dL 09/06/2024 3:10 AM EST [facility] CALCIUM 9.5 8.4 - 10.2 mg/dL 09/06/2024 3:10 AM EST [facility] Protein 6.5 6.0 - 8.3 g/dL 09/06/2024 3:10 AM EST [facility] ALT 28 10 - 50 U/L 09/06/2024 3:10 AM EST [facility] Blood Venous blood specimen / Unknown Venipuncture / Unknown 09/05/2024 11:35 AM EST 09/05/2024 11:35 AM EST Isiah Perez MD LAB BLOOD ORDERABLES Final Result Performing Organization Address City/[facility]/ZIP Co de Phone Number LABORATORY [facility] [address] [place] [address] * ERYTHROCYTE SEDIMENTATION RATE (ESR) (09/05/2024 11:35 AM EST) ESR 16 <20 mm/hour 09/06/2024 1:27 AM EST [facility] Blood Venous blood specimen / Unknown Venipuncture / Unknown 09/05/2024 11:35 AM EST 09/05/2024 11:35 AM EST Isiah Perez MD LAB BLOOD ORDERABLES Final Result LABORATORY [facility] [address] [place] [address] * 25-HYDROXY VITAMIN D (09/05/2024 11:35 AM EST) 25-Hydroxy Vitamin D 42 >19 ng/mL 09/06/2024 3:43 AM EST LABORATORY [facility] Blood Venous blood specimen / Unknown Venipuncture / Unknown 09/05/2024 11:35 AM EST 09/05/2024 11:35 AM EST Narrative LABORATORY [facility] - 09/06/2024 3:43 AM EST Deficient: <20 ng/mL Insufficient: 20-29 ng/mL Recommended/Optimum:30-50 ng/mL Vitamin D intoxication is rare. If suspicious of Vitamin D toxicity, evaluation of serum Calcium and PTH is recommended. us Isiah Perez MD LAB BLOOD ORDERABLES Final Result LABORATORY [facility] [address] [place], [place] [id number] documented in this encounter Visit Diagnoses Diagnosis PMR (polymyalgia rheumatica) (HCC) Polymyalgia rheumatica documented in this encounter Care Teams Manager Food Safety Relationship Specialty Start Date End Date Artemio Truong DO [address] [place] [address] PCP - General Internal Medicine 04/20/24 documented as of this encounter
--- OUTSIDE RECORDS SUMMARY | 2024-11-06 08:41 | External Medical Summary | Summary of Care ---
Author Name Unknown Organization [facility] Address [address] [facility] [address] Phone [phone] Care Team Providers Care Machine Cleaner Name Role Phone Artemio Truong DO Primary Care Provider [phone] Reason for Visit * Reason Comments Follow Up Encounter Details Date Type Department Care Team (Late st Contact Info) Description 08/08/2024 8:00 AM EDT Office Visit Ophthalmology, [facility] [address] [place] [address] Brenden Ellis DO [address] [place] [address] Moderate nonproliferative diabetic retinopathy of both eyes with macular edema associated with type 2 diabetes mellitus (HCC)*; NPDR with macular edema (HCC) Allergies No known active allergiesdocumented as of this encounter (statuses as of 08/08/2024) Medications Medication Sig Dispensed Refills Start Date End Date Status Blood Glucose Monitoring Suppl (ONETOUCH ULTRA 2) w/Device KITIndications:Ty pe 2 diabetes mellitus with hemoglobin A1c goal of less than 7.0% ([facility]) 12/15/2018 Active acetaminophen (TYLENOL) 500 MG Tablet Take 1-2 Tablets by mouth every 6 hours as needed for Pain. 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 0 11/27/2010 [...] as of this encounter (statuses as of 08/08/2024) Resolved Problems Problem Noted Date Diagnosed Date [...] as of this encounter (statuses as of 08/08/2024) Immunizations Name Administration Dates Next Due COVID-19 mRNA, LNP-s, No Pre serve, 2-Dose Series (Moderna) 12/22/2020,11/24/2020 COVID-19, MRNA-LNP, 23-24, P F, 30 MCG/0.3 mL, 12 YRS AND ABOVE, IM (PFIZER-ComirnatBromium) 08/03/2023 COVID-19, MRNA-LNP, 24-25, P R, 30MCG/0.3ML, IM, 12YRS AND ABOVE ([place]-ComirnatBromium) 07/12/2024 COVID-19, mRNA, LNP-s, PF, B ooster, [...] as of this encounter Progress Notes * Brenden Ellis, - 08/08/2024 8:00 AM EDT [facility] [place] Nursing Notes: Darya Crawford RN 08/08/24 0813 Signed Mitchel Mcpherson is a 78 year old year old male who presents for Moderate NPDR OU. Last Office Visit: 04/06/2024 (in office), Visit date not found (telemedicine) Patient currently states no change in vision. Are you diabetic? Yes. Do you check your blood sugars daily? YES. Did not measure this morning. Last Hemoglobin A1C: Lab Results Component Value Date/Time HGBA1C 8.1 (H) 07/12/2024 08:44 AM HGBA1C 8.3 (H) 03/10/2024 08:53 AM HGBA1C 8.4 (H) 11/03/2023 09:05 AM HGBA1C 9.4 (H) 03/26/2022 07:52 AM HGBA1C 9.1 (H) 11/20/2021 08:34 AM HGBA1C 8.5 (H) 05/15/2021 07:23 AM HGBA1C 8.8 (H) 09/02/2019 08:29 AM HGBA1C 9.0 (A) 06/01/2019 12:00 AM HGBA1C 8.0 (A) 12/15/2018 12:00 AM HGBA1C 8.5 (H) 09/10/2018 09:23 AM HGBA1C 8.9 (H) 05/11/2018 08:[address]? yes OCT image(s) of both eyes acquired and filed/scanned into chart. Base Eye Exam Visual Acuity (Snellen - Linear) Right Left Dist cc 20/30 -2 20/30 -2 Correction: Glasses Tonometry (Tonopen, 8:11 AM) Right Left Pressure 16 13 Pupils Dark Light Shape React APD Right 3.5 3 Round Slow None Left 4 3.5 Round Sluggish None Visual Lopez (Counting fingers) Right Left Full Full Extraocular Movement Right Left Full, Ortho Full, Ortho Neuro/Psych Oriented x3: Yes Mood/Affect: Normal Dilation Both eyes: 0.5% Proparacaine @ 8:10 AM Dilation #2 Both eyes: 1.0% Mydriacyl, 2.5% Phenylephrine @ 8:11 AM Dilation #3 Both eyes: 1.0% Mydriacyl, 2.5% Phenylephrine @ 8:12 AM Dilation Comments Patient cautioned that effects of dilation may last 2-7 hours dependant upon individual reaction. It was discussed that driving while dilated is not recommended. EXTERNAL: The ocular adnexae are unremarkable. SLE: Lids/Lashes: wnl OU Conjunctiva/Sclera: quiet OU Cornea: clear OU Anterior Chamber: deep and quiet OU Iris: normal OU; no NVI OU Lens: PCIOL OU Dilated fundus exam OD: vitreous: clear optic nerve: 0.35, no edema/pallor/NVD macula: 1.5 DA flat nevus IT macula, trace instant potato processing supervisor vessels: wnl periphery: instant potato processing supervisor, no RT/RD Dilated fundus exam OS: vitreous: clear optic nerve: 0.35, no edema/pallor/NVD macula: instant potato processing supervisor vessels: wnl periphery: instant potato processing supervisor, no RT/RD OCT Interpretation: OD: no irf/srf, no pvd-stable OS: mild irf IT, fovea dry no srf, no pvd --trace improved A/P: 1. Moderate Nonproliferative Diabetic Retinopathy OU OD: no CIDME -monitor OS: trace DME -has improved w/o intervention -monitor -requires ongoing prednisone for PMR so A1C usually runs 8-9 range -recommend HgbA1C <7, BP and lipid control. 2. Choroidal nevus OD -low risk -baseline photos 11/25/2023 -monitor 3. Pseudophakia OU -stable, Dr. Kong 4. PMR -on steroids . F/u 6 months OCT OU Brenden Ellis DO CC: Angel Kong MD CC: PCP: Artemio Truong DO documented in this encounter Nursing Notes * Darya Crawford RN - 08/08/2024 8:06 AM EDT Mitchel Mcpherson is a 78 year old year old male who presents for Moderate NPDR OU. Last Office Visit: 04/06/2024 (in office), Visit date not found (telemedicine) Patient currently states no change in vision. Are you diabetic? Yes. Do you check your blood sugars daily? YES. Did not measure this morning. Last Hemoglobin A1C: Lab Results Component Value Date/Time HGBA1C 8.1 (H) 07/12/2024 08:44 AM HGBA1C 8.3 (H) 03/10/2024 08:53 AM HGBA1C 8.4 (H) 11/03/2023 09:05 AM HGBA1C 9.4 (H) 03/26/2022 07:52 AM HGBA1C 9.1 (H) 11/20/2021 08:34 AM HGBA1C 8.5 (H) 05/15/2021 07:23 AM HGBA1C 8.8 (H) 09/02/2019 08:29 AM HGBA1C 9.0 (A) 06/01/2019 12:00 AM HGBA1C 8.0 (A) 12/15/2018 12:00 AM HGBA1C 8.5 (H) 09/10/2018 09:23 AM HGBA1C 8.9 (H) 05/11/2018 08:[address]? yes OCT image(s) of both eyes acquired and filed/scanned into chart. documented in this encounter Plan of Treatment Upcoming Encounters Date Type Department Care Team (Late st Contact Info) Description 08/30/2024 8:40 AM EST Office Visit Rheumatology [place] [id number] [facility] [place] [address] Isiah Perez MD [address] [facility] [place] [address] 09/15/2024 8:00 AM EST Anticoagulation Family Practice [address] [place] [address] [address] [facility] [phone] College, Pharmacist [address] [address] 11/15/2024 8:00 AM EST Office Visit Family Practice [address] [place] [address] [address] [facility] [place] [phone] Artemio Truong, DO 293 [facility] [place] [address] 02/06/2025 8:00 AM EDT Office Visit Ophthalmology, [facility] [address] [facility] [place] [address] Brenden Ellis, DO [address] [facility] [place] [address] Scheduled Orders Name Type Priority Associated Diagnoses Orde r Schedule RETINA SCAN DIAGNOSTIC IMAGE, POSTERIOR Procedures Routine NPDR with macular edema (HCC) Ordered: 08/08/2024 Health Maintenance Due Date Last Done Comments [...] D LEVEL ONCE IN A LIFETIME-USE SMARTSET# [id number] Completed 11/26/2021, 08/09/2021, 09/02/2019, Additional history exists [...] as of this encounter Visit Diagnoses Diagnosis Moderate nonproliferative diabetic retinopathy of both eyes with macular edema associated with type 2 diabetes mellitus (HCC)- Primary NPDR with macular edema (HCC) documented in this encounter Care Teams Machine Cleaner Relationship Specialty Start Date End Date Artemio Truong DO [address] [place] [address] PCP - General Internal Medicine 04/20/24 documented as of this encounter
--- OUTSIDE RECORDS SUMMARY | 2024-11-06 08:41 | External Medical Summary ---
Author Name Unknown Address Unknown Organization K01:LABORATORY [facility] - [facility] [address] [facility] [address] [facility] [address] Laboratory Report Ordering Provider Test Date Status OVI HERRMANN 09/05/2024 11:35:24 Final Observation Date Value Abnormality Reference (Units ) Status WBC, Total 09/05/2024 11:35:24 10.66 4.00-10.80 (K/uL) Final RBC 09/05/2024 11:35:24 4.34 4.50-5.25 (M/uL) Final Hemoglobin 09/05/2024 11:35:24 12.9 Below low normal 14.0-16.8 (g/dL) Final HCT 09/05/2024 11:35:24 41.3 40.0-48.4 (%) Final MCV 09/05/2024 11:35:24 95.2 82.0-99.5 (fL) Final MCH 09/05/2024 11:35:24 29.7 27.0-34.0 (pg) Final MCHC 09/05/2024 11:35:24 31.2 32.0-36.0 (g/dL) Final RDW 09/05/2024 11:35:24 13.4 11.5-15.5 (%) Final Platelets 09/05/2024 11:35:24 260 140-400 (K/uL) Final MPV 09/05/2024 11:35:24 11.6 6.6-11.1 (fL) Final Nucleated erythrocytes/100 leukocytes [Ratio] in Blood by Automated count 09/05/2024 11:35:24 0 <=0 (/100 WBCs) Final Performing Location LABORATORY [facility] - [address] [facility] [address]
--- OUTSIDE RECORDS SUMMARY | 2024-11-06 08:41 | External Medical Summary | Summary of Care ---
Author Name Unknown Organization [facility] Address [address] [place] [address] Phone [phone] Care Team Providers Care Art Therapist Name Role Phone Artemio Truong DO Primary Care Provider [phone] Reason for Visit * Reason Onset Date Comments Medication Refill 09/15/2024 Encounter Details Date Type Department Care Team (Late st Contact Info) Description 09/15/2024 Refill Family Practice [address], [place] [address] [place] [address] Cecy Fallon, [facility] [address] [place] [address] Type 2 diabetes, HbA1C goal < 8% ([facility])* Allergies No known active allergiesdocumented as of this encounter (statuses as of 09/15/2024) Medications Blood Glucose Monitoring Suppl (Enable HealthcareTOUCH ULTRA 2) w/Device KITIndications: Type 2 diabetes mellitus with hemoglobin A1c goal of less than 7.0% ([facility]) 12/16/19 19 Active acetaminophen (TYLENOL) 500 MG Tablet Take 1-2 Tablets by mouth every 6 hours as needed for Pain. Active Vitamin D3 50 MCG (1999) Oral Capsule Take 1 Capsule by mouth every evening. 30 Cap 5 08/11/20 21 Active OneTouch Ultra Blue In Vitro Strip (Glucose Blood)Indicatio ns:Type 2 diabetes mellitus with hemoglobin A1c goal of less than 7.0% ([facility]) Use to test once daily. DX:E11.9 100 [...] hemoglobin A1c goal of less than 7.0% ([facility]) TAKE ONE TABLET BY MOUTH TWICE A [...] hemoglobin A1c goal of less than 7.0% ([facility]) TAKE TWO TABLETS BY MOUTH WITH BREAKFAST, ONE TABLET WITH LUNCH AND ONE TABLET WITH DINNER 360 Tablet 3 03/18/20 24 025 Active Additional Information Patient taking differently: 10 mg, Two in the morning and one with dinner, Reported on 08/30/2024 DULoxetine HCl 20 MG Oral Capsule Delayed Release Particles (Cymbalta)Indic ations:Polymyal kyle rheumatica ([facility]) TAKE ONE CAPSULE BY MOUTH EVERY DAY. [...] dications:Type 2 diabetes, HbA1C goal < 8% ([facility]) Inject 4.5 mg under the skin once a week. 2 mL 11 09/15/20 24 Active Trulicity 4.5 MG/0.5ML Subcutaneous Solution Pen-injector (Dulaglutide) INJECT 4.5MG UNDER THE SKIN ONCE A WEEK 6 mL 1 4 9:36 AM EDT 02/11/20 24 024 Discontin ued(Refil l) Trulicity 3 MG/0.5ML Subcutaneous Solution Pen-injector (Dulaglutide)In dications:Type 2 diabetes, HbA1C goal < 8% ([facility]) Inject 3 mg under the skin once a week for 28 days. 2 mL 04/22/20 24 024 Discontin ued(Refil l) Trulicity 4.5 MG/0.5ML Subcutaneous Solution Auto-injector (Dulaglutide)In dications:Type 2 diabetes, HbA1C goal < 8% ([facility]) Inject 4.5 mg under the skin once a week. 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 PMR (polymyalgia rheumatica) 01/10/2011 alf current use of systemic steroids 01/10 alf current use of anticoagulant therapy 0 11/27/2010 [...] No 11/03/2023 Does the household have a [facility] source of income? (Household - for ages [...] encounter Miscellaneous Notes * Telephone Encounter - Cecy Fallon RPh - 09/15/2024 8:14 AM EST Patient reports Trulicity fill is overdue. Sent in to mail order and asked them to fill clint. Cecy Roche, Pharm D, BCACP Clinical Pharmacist [address] - [facility] 09/15/2024, 8:16 AM Ph. [phone] documented in this encounter Plan of Treatment Upcoming Encounters Date Type Department Care Team (Late st Contact Info) Description 11/15/2024 8:00 AM EST Office Visit Family Practice 65 [facility] [address] [facility] [place] [phone] Artemio Truong, DO 293 [place] [address] 11/15/2024 8:00 AM EST Anticoagulation Family Practice 65 [facility] [address] [facility] [place] [phone] College, Pharmacist [address], [place] [address] 02/06/2025 8:00 AM EDT Office Visit Ophthalmology, [facility] [address] [place] [address] Brenden Ellis, DO [address] [place] [address] 08/14/2025 9:00 AM EST Imaging Radiology, [address] [place] [address] 08/31/2025 8:30 AM EST Office Visit Rheumatology [address] [place] [address] Iván Golden CRNP [address] [place] [address] [place] [address] Health Maintenance Due Date Last Done Comments [...] D LEVEL ONCE IN A LIFETIME-USE SMARTSET# 70060 Completed 09/05/2024, 11/26/2021, 08/09/2021, Additional history exists [...] as of this encounter Visit Diagnoses Diagnosis Type 2 diabetes, HbA1C goal < 8% (HCC)- Primary Type II or unspecified type diabetes mellitus without mention of complication, not stated as uncontrolled documented in this encounter Care Teams Art Therapist Relationship Specialty Start Date End Date Artemio Truong DO [address] [place] [address] PCP - General Internal Medicine 04/20/24 documented as of this encounter
--- OUTSIDE RECORDS SUMMARY | 2024-11-06 08:41 | External Medical Summary ---
Author Name Unknown Address Unknown Organization : Laboratory Report Ordering Provider Test Date Status [facility]ON GARDNER 09/15/2024 08:06:55 Final Therapeutic ranges for non-o perative patients:
Prophylaxsis/treatment of DVT: (Range:2.0-3.0)
Treatment of pulmonary embolism:(Range:2.0-3.0)
Prevention of systemic embolism from:
-tissue heart valves
-acute myocardial infarction
-valvular heart disease
-atrial fibrillation
(Range: 2.0-3.0)
Mechanical prosthetic valves: (Range: 2.5-3.5) Observation Date Value Abnormality Reference (Units ) Status INR in Capillary blood by Coagulation assay 09/15/2024 08:06:55 2.3 (INR) Final Performing Location
--- OUTSIDE RECORDS SUMMARY | 2024-11-06 08:42 | External Medical Summary | Summary of Care ---
Author Name Unknown Organization [facility] Address [address] [place] [address] Phone [phone] Care Team Providers Care Uc Architect Name Role Phone Pascual Truong DO Primary Care Provider [phone] Reason for Visit * Reason Comments Medication Refill Encounter Details Date Type Department Care Team (Late st Contact Info) Description 08/01/2024 Refill Family Practice [address], [place] [address] [place] [address] Pascual Truong DO [address] [place] [address] PMR (polymyalgia rheumatica) ([facility]) Allergies No known active allergiesdocumented as of this encounter (statuses as of 08/01/2024) Medications Medication Sig Dispensed Refills Start Date End Date Status Blood Glucose Monitoring Suppl (ONETOUCH ULTRA 2) w/Device KITIndications:Ty pe 2 diabetes mellitus with hemoglobin A1c goal of less than 7.0% ([facility]) 9 Active acetaminophen (TYLENOL) 500 MG Tablet Take 1-2 Tablets by mouth every 6 hours as needed for Pain. Active Vitamin D3 50 MCG (1999 [place]) Oral Capsule Take 1 Capsule by mouth every evening. 30 Cap 5 1 Active OneTouch Ultra Blue In Vitro Strip (Glucose Blood)Indications :Type 2 diabetes mellitus with hemoglobin A1c goal of less than 7.0% ([facility]) Use to test once daily. DX:E11.9 100 Strip 3 2 Active OneTouch Delica Lancets 33G Use to test once daily. DX: E11.9 100 Each 3 2 Active Warfarin Sodium 5 MG Oral Tablet (Coumadin)Indicat ions:Chronic atrial fibrillation (HCC) Take 1 tablet by mouth once daily or as directed by anticoagulation clinic 90 Tablet 3 4 Active Vitamin B 12 500 MCG Oral TabletIndications :Vitamin B 12 deficiency Take 1 Tablet by mouth daily. 4 Active metFORMIN HCl 1000 MG Oral Tablet (Glucophage)Indic ations:Type 2 diabetes mellitus with hemoglobin A1c goal of less than 7.0% (HCC) TAKE ONE TABLET BY MOUTH TWICE A DAY WITH FOOD. 200 Tablet 3 4 12/21/19 25 Active Sildenafil Citrate 20 MG Oral Tablet (Revatio)Indicati ons:Other male erectile dysfunction take 5 tablets by mouth daily if needed for ERECTILE DYSFUNCTION TAKE 1 HOUR BEFORE SEX 20 Tablet 3 4 Active Trulicity 4.5 MG/0.5ML Subcutaneous Solution Pen-injector (Dulaglutide) INJECT 4.5MG UNDER THE SKIN ONCE A WEEK 6 mL 1 4 Active Metoprolol Tartrate 50 MG Oral Tablet (Lopressor) TAKE ONE TABLET BY MOUTH EVERY MORNING AND AT BEDTIME 200 Tablet 1 4 02/19/20 25 Active Enalapril Maleate 10 MG Oral Tablet (Vasotec) TAKE ONE TABLET BY MOUTH EVERY MORNING 100 Tablet 1 4 02/19/20 25 Active glipiZIDE 10 MG Oral Tablet (Glucotrol)Indica tions:Type 2 diabetes mellitus with hemoglobin A1c goal of less than 7.0% (HCC) TAKE TWO TABLETS BY MOUTH WITH BREAKFAST, ONE TABLET WITH LUNCH AND ONE TABLET WITH DINNER 360 Tablet 3 4 03/18/20 25 Active Additional Information Patient taking differently: 10 mg, Two in the morning and one with dinner, Reported on 07/12/2024 Trulicity 3 MG/0.5ML Subcutaneous Solution Pen-injector (Dulaglutide)Loyda cations:Type 2 diabetes, HbA1C goal < 8% (HCC) Inject 3 mg under the skin once a week for 28 days. 2 mL 4 Active DULoxetine HCl 20 MG Oral Capsule Delayed Release Particles (Cymbalta)Indicat ions:Polymyalgia rheumatica (HCC) TAKE ONE CAPSULE BY MOUTH EVERY DAY. DO NOT CUT, CRUSH, OR CHEW. 100 Capsule 1 4 Active Alendronate Sodium 70 MG Oral Tablet (Fosamax) TAKE ONE TABLET BY MOUTH ONCE A WEEK WITH 8 OZ OF WATER 30 MINUTES BEFORE FIRST MEAL OF THE DAY. REMAIN UPRIGHT FOR 30 MINUTES AFTER TAKING TABLET 15 Tablet 2 4 Active Atorvastatin Calcium 20 MG Oral Tablet (Lipitor) Take 1 Tablet by mouth in the morning. 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 01/10 [facility] current use of anticoagulant therapy 0 11/27/2010 [...] as of this encounter (statuses as of 08/01/2024) Resolved Problems Problem Noted Date Diagnosed Date [...] as of this encounter (statuses as of 08/01/2024) Immunizations Name Administration Dates Next Due COVID-19 mRNA, LNP-s, No Pre serve, 2-Dose Series (Moderna) 12/22/2020,11/24/2020 COVID-19, MRNA-LNP, 23-24, P F, 30 MCG/0.3 mL, 12 YRS AND ABOVE, IM (PFIZER-Comirnat) 08/03/2023 COVID-19, MRNA-LNP, 24-25, P R, 30MCG/0.3ML, IM, 12YRS AND ABOVE ([facility]-Comirnaty) 07/12/2024 COVID-19, mRNA, LNP-s, PF, B ooster, [...] encounter Miscellaneous Notes * Telephone Encounter - Pascual Truong DO - 08/01/2024 10:19 AM EDTSigned Prescriptions: Disp Refills predniSONE 5 MG Oral Tablet (Deltasone) 200 Ta*2 Sig: TAKE ONE TABLET BY MOUTH EVERY MORNING & ONE TABLET BEFORE BEDTIME Authorizing Provider: PASCUAL TRUONG * Telephone Encounter - Carol Wiggins LPN - 08/01/2024 9:22 AM EDTPending Prescriptions: Disp Refills predniSONE 5 MG Oral Tablet (Deltasone) 200 Ta*2 Sig: TAKE ONE TABLET BY MOUTH EVERY MORNING & ONE TABLET BEFORE BEDTIME * Telephone Encounter - Carol Wiggins LPN - 08/01/2024 9:22 AM EDT Did you pend patient's preferred pharmacy and medication before forwarding?yes Pharmacy: [facility] Pending Prescriptions: Disp Refills predniSONE 5 MG Oral Tablet (Deltasone) 200 Ta*2 Sig: TAKE ONE TABLET BY MOUTH EVERY MORNING & ONE TABLET BEFORE BEDTIME Last Visit: 07/12/2024 (in office), Visit date not found (telemedicine) Next Visit: 08/04/2024 If no future appointments scheduled, and last appointment is greater than a year ago, please schedule patient for a follow-up appointment Last date the medication was ordered: Is this request for a controlled substance? no Urine Drug Screen:No results found. However, due to the size of the patient record, not all encounters were searched. Please check Results Review for a complete set of results. Patient Phone Numbers Labs: Lab Results Component Value Date/Time CREAT 1.0 11/03/2023 09:05 AM CREAT 1.1 10/10/2020 08:50 AM POTASSIUM 4.6 11/03/2023 09:05 AM POTASSIUM 4.4 10/10/2020 08:50 AM TSH 0.98 11/03/2023 09:05 AM TSH 1.32 05/25/2009 10:15 AM LDL 62 11/03/2023 09:05 AM LDL 66 10/10/2020 08:50 AM LDL NOT APPLICABLE 10/10/2020 08:50 AM ALT 27 11/03/2023 09:05 AM ALT 39 10/10/2020 08:50 AM HGBA1C 8.1 (H) 07/12/2024 08:44 AM HGBA1C 9.4 (H) 03/26/2022 07:52 AM HGBA1C 8.8 (H) 09/02/2019 08:29 AM * Telephone Encounter - Shelly Cueto - 08/01/2024 6:04 AM EDTPending Prescriptions: Disp Refills predniSONE 5 MG Oral Tablet (Deltasone) 200 Ta*2 Sig: TAKE ONETABLET BY MOUTH EVERY MORNING & ONE TABLET BEFORE BEDTIME documented in this encounter Plan of Treatment Upcoming Encounters Date Type Department Care Team (Late st Contact Info) Description 08/04/2024 8:00 AM EDT Anticoagulation Family Practice 65 [facility] 293 [facility], [place] [address] College, Pharmacist [address] [place] [address] 08/08/2024 8:00 AM EDT Office Visit Ophthalmology, [facility] 132 [facility] [place] [address] Brenden Ellis, 132 [facility] [place] [address] 08/30/2024 8:40 AM EST Office Visit Rheumatology [place] [address] [employer] [place], [place] [address] Isiah Perez MD [facility] [employer] [place] [address] 11/15/2024 8:00 AM EST Office Visit Family Practice [address] [place] [address] 293 [facility], [place] [address] Pascual Truong, 293 [facility] [address] Health Maintenance Due Date Last Done Comments [...] D LEVEL ONCE IN A LIFETIME-USE SMARTSET# [id number] Completed 11/26/2021, 08/09/2021, 09/02/2019, Additional history exists [...] rheumatica documented in this encounter Care Teams Uc Architect Relationship Specialty Start Date End Date Pascual Truong DO [address] [place] [address] PCP - General Internal Medicine 04/20/24 documented as of this encounter
--- OUTSIDE RECORDS SUMMARY | 2024-11-06 08:42 | External Medical Summary | Summary of Care ---
Author Name Unknown Organization [facility] Address [address] [place] [address] Phone [phone] Care Team Providers Care Litigation Legal Secretary Name Role Phone Artemio Truong DO Primary Care Provider [phone] Encounter Details Date Type Department Care Team (Late st Contact Info) Description 06/30/2024 Population Health External Data Unspecified Department Allergies No known active allergiesdocumented as of this encounter (statuses as of 07/04/2024) Medications Medication Sig Dispensed Refills Start Date End Date Status Blood Glucose Monitoring Suppl (NourishUCH ULTRA 2) w/Device KITIndications:Ty pe 2 diabetes mellitus with hemoglobin A1c goal of less than 7.0% ([facility]) 12/15/2018 Active acetaminophen (TYLENOL) 500 MG Tablet Take 1-2 Tablets by mouth every 6 hours as needed for Pain. Active Vitamin D3 50 MCG (2000 UT) Oral Capsule Take 1 Capsule by mouth every evening. 30 Cap 5 08/11/2021 Active OneTouch Ultra Blue In Vitro Strip (Glucose Blood)Indications :Type 2 diabetes mellitus with hemoglobin A1c goal of less than 7.0% ([facility]) Use to test once daily. DX:E11.9 100 Strip 3 07/28/2022 Active WazeTouch Delica Lancets 33G Use to test once daily. DX: E11.9 100 Each 3 07/28/2022 Active Atorvastatin Calcium 20 MG Oral Tablet (Lipitor) Take 1 Tablet by mouth in the morning. 100 Tablet 3 06/23/2023 Active predniSONE 5 MG Oral Tablet (Deltasone)Indica tions:PMR (polymyalgia rheumatica) (HCC) TAKE ONE TABLET BY MOUTH EVERY MORNING & ONE TABLET BEFORE BEDTIME 200 Tablet 2 10/07/2023 4 Active Warfarin Sodium 5 MG Oral Tablet [...] hemoglobin A1c goal of less than 7.0% ([facility]) TAKE ONE TABLET BY MOUTH TWICE A DAY WITH FOOD. 200 Tablet 3 12/21/2023 5 Active Sildenafil Citrate 20 MG Oral Tablet [...] hemoglobin A1c goal of less than 7.0% ([facility]) TAKE TWO TABLETS BY MOUTH WITH BREAKFAST, ONE TABLET WITH LUNCH AND ONE TABLET WITH DINNER 360 Tablet 3 03/18/2024 5 Active Trulicity 3 MG/0.5ML Subcutaneous Solution Pen-injector (Dulaglutide)Loyda cations:Type 2 diabetes, HbA1C goal < 8% ([facility]) Inject 3 mg under the skin once a week for 28 days. 2 mL 04/22/2024 Active DULoxetine HCl 20 MG Oral Capsule Delayed Release Particles (Cymbalta)Indicat ions:Polymyalgia rheumatica (HCC) TAKE ONE CAPSULE BY MOUTH EVERY DAY. DO NOT CUT, CRUSH, OR CHEW. 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 0 [...] as of this encounter (statuses as of 07/04/2024) Resolved Problems Problem Noted Date Diagnosed Date [...] as of this encounter (statuses as of 07/04/2024) Immunizations Name Administration Dates Next Due COVID-19 mRNA, LNP-s, No Pre serve, 2-Dose Series (Moderna) 12/22/2020,11/24/2020 COVID-19, MRNA-LNP, 23-24, P F, 30 MCG/0.3 mL, 12 YRS AND ABOVE, IM (PFIZER-Comirnat) 08/03/2023 COVID-19, mRNA, LNP-s, PF, B ooster, 100mcg/0.5mg (Moderna) 03/08/2022,08/23/2021 Covid-19, Mrna, Lnp-s, Pf, B ivalent, 30 Mcg, IM, 12 yrs and above (Pfizer) 08/05/2022 Pneumococcal Conjugate Vacc, 13 Valent (Prevnar) 03/03/2016 Pneumococcal Polysaccharide PPV23 (Pneumovax) 01/03/2009 RSV Vac., Bivalent, Perfusio n F, Pf,0.5 Ml (Abrysvo) 08/17/2023 Season Influenza, Quad, PF, Adjuvanted, 65+ Yrs, IM (FLUAD) 07/19/2020 Seasonal Influenza, High Dos e, Trivalent, PF, IM (Fluzone HD) 06/24/2024 Seasonal Influenza, PF, 6 M & above, IM , (FluLaval or Fluzone) 07/27/2018,08/17/2017 Seasonal Influenza, Quadriva lent Hd (Fluzone Hd) 06/23/2023,07/11/2022,06/20/2021 Seasonal Influenza, Quadriva lent, No Preserve, IM 07/27/2016,08/20/2015 Seasonal Influenza, Trivalen t, (IIV3), with Preserv, (Fluzone) 08/21/2014,07/14/2013,10/07/2012,07/01,07/19/2010,09/03/2009,08/15/2008 ,08/19/2007,09/11/2006 Seasonal Influenza, Trivalen t, Adjuvanted, 65+ YRS, [...] Care Team (Late st Contact Info) Description 07/12/2024 8:00 AM EDT Office Visit Family Practice 65 [facility] 293 [place] [phone] Artemio Truong, 293 [facility] [place] [address] 08/04/2024 8:00 AM EDT Anticoagulation Family Practice 65 [facility] 293 [place] [phone] College, Pharmacist [address] [place] [address] 08/08/2024 8:00 AM EDT Office Visit Ophthalmology, [facility] [address] [place] [address] Brenden Ellis DO [address] [place] [address] 08/30/2024 8:40 AM EST Office Visit Rheumatology [facility] [address] [facility] [place] [address] Isiah Perez MD [address] [facility] [place] [address] Health Maintenance Due Date Last Done Comments Adult Wellness Visit 03/31/2015 03/31/2014 Diabetic Foot Exam 04/29/2024 04/29/2023, 1 , 07/23/2021, Additional history exists COVID-19 Vaccine ( season) 2024 08/03/2023, 08/05/2022, 03/08/2022, Additional history exists Albumin/Creatinine Ratio 06/23/2024 023, 09/01/2022, 07/23/2022, Additional history exists HbA1c 09/10/2024 03/10/2024, 10/13, 06/23/2023, Additional history exists Depression Screening 11/03/2024 11/03/2023 GFR 11/03/2024 11/03/2023, 12/12, 07/11/2022, Additional history exists Diabetic Eye Exam 11/23/2024 11/23/2023, , 11/23/2023, Additional history exists B-12 12/01/2024 12/01/2023, 10/13, 01/08/2023, Additional history exists DXA Scan 08/10/2025 08/10/2023, 07/14, 08/05/2021, Additional history exists DTap/Tdap Vaccines (3 - Td or Tdap) 07/23/2032 07/23/2022, 04/19/2012, 01/29/2001 Pneumococcal Vaccine: 65+ Years Completed 03/03/2016, 01/03/2009, 09/01/2003 VITAMIN D LEVEL ONCE IN A LIFETIME-USE SMARTSET# [id number] Completed 11/26/2021, 08/09/2021, 09/02/2019, Additional history exists Zoster Vaccines Completed 03/27/2022, 11/26/2021 Influenza Vaccine (FLU shot) Completed , 06/23/2023, 07/11/2022, Additional history exists HPV (Gardasil) Vaccine Aged [...] filedocumented as of this encounter Care Teams Litigation Legal Secretary Relationship Specialty Start Date End Date Artemio Truong DO [address] [place] [address] PCP - General Internal Medicine 04/20/24 documented as of this encounter
--- OUTSIDE RECORDS SUMMARY | 2024-11-06 08:42 | External Medical Summary | Summary of Care ---
Author Name Unknown Organization [facility] Address [address] [place] [address] Phone [phone] Care Team Providers Care Turkey Cleaner Name Role Phone Artemio Truong DO Primary Care Provider [phone] Reason for Visit * Reason Comments Follow Up Encounter Details Date Type Department Care Team (Latest Contact Info) Description 07/12/2024 8:00 AM EDT Office Visit Family Practice [address] [facility], [place] [address] [place] [id number] Artemio Truong DO [address] [place] [address] Type 2 diabetes, HbA1C goal < 8% ([facility])*; Permanent atrial fibrillation ([facility]); DYSLIPIDEMIA, GOAL LDL BELOW 100; HTN, goal below 140/90; Type 2 diabetes mellitus with both eyes affected by mild nonproliferative retinopathy without macular edema, without long-term current use of insulin ([facility]); PMR (polymyalgia rheumatica) ([facility]); Other male erectile dysfunction Allergies No known active allergiesdocumented as of this encounter (statuses as of 07/12/2024) Medications Medication Sig Dispensed Refills Start Date End Date Status Blood Glucose Monitoring Suppl (SubtleDataTOUCH ULTRA 2) w/Device KITIndications:Ty pe 2 diabetes mellitus with hemoglobin A1c goal of less than 7.0% ([facility]) 12/15/2018 Active acetaminophen (TYLENOL) 500 MG Tablet Take 1-2 Tablets by mouth every 6 hours as needed for Pain. Active Vitamin D3 50 MCG (1999 [place]) Oral Capsule Take 1 Capsule by mouth every evening. 30 Cap 5 08/11/2021 Active OneTouch Ultra Blue In Vitro Strip (Glucose Blood)Indications :Type 2 diabetes mellitus with hemoglobin A1c goal of less than 7.0% ([facility]) Use to test once daily. DX:E11.9 100 Strip 3 07/28/2022 Active OneTouch Delica Lancets 33G Use to test once daily. DX: E11.9 100 Each 3 07/28/2022 Active Atorvastatin Calcium 20 MG Oral Tablet (Lipitor) Take 1 Tablet by mouth in the morning. 100 Tablet 3 06/23/2023 Active predniSONE 5 MG Oral Tablet (Deltasone)Indica tions:PMR (polymyalgia rheumatica) ([facility]) TAKE ONE TABLET BY MOUTH EVERY MORNING & ONE TABLET BEFORE BEDTIME 200 Tablet 2 10/07/2023 4 Active Warfarin Sodium 5 MG Oral Tablet (Coumadin)Indicat ions:Chronic atrial fibrillation ([facility]) Take 1 tablet by mouth once daily or as directed by anticoagulation clinic 90 Tablet 3 10/21/2023 Active Vitamin B 12 500 MCG Oral TabletIndications :Vitamin B 12 deficiency Take 1 Tablet by mouth daily. 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 01/10 [facility] current use of anticoagulant therapy 0 11/27/2010 [...] as of this encounter (statuses as of 07/12/2024) Resolved Problems Problem Noted Date Diagnosed Date [...] as of this encounter (statuses as of 07/12/2024) Immunizations Name Administration Dates Next Due COVID-19 mRNA, LNP-s, No Pre serve, 2-Dose Series (Moderna) 12/22/2020,11/24/2020 COVID-19, MRNA-LNP, 23-24, P F, 30 MCG/0.3 mL, 12 YRS AND ABOVE, IM ([facility]) 08/03/2023 COVID-19, MRNA-LNP, 24-25, P R, 30MCG/0.3ML, IM, 12YRS AND ABOVE ([facility]) 07/12/2024 COVID-19, mRNA, LNP-s, PF, B ooster, [...] Past Smokeless Tobacco: Never Tobacco Cessation:Counseling Given: Yes Alcohol Use Standard Drinks/Week Comments Yes 0 [...] Sign Reading Time Taken Comments Blood Pressure 116/84 07/12/2024 8:09 AM EDT Pulse 88 07/12/2024 8:09 AM EDT Temperature 36.4 C (97.6 F) 07/12/2024 8:09 AM ED T Respiratory Rate 16 07/12/2024 8:09 AM EDT Oxygen Saturation 96% 07/12/2024 8:09 AM EDT Inhaled Oxygen Concentration - - Weight 85.1 kg (187 lb 9.6 oz) 07/12/2024 8:09 A M EDT Height 177.8 cm (5' 10") 07/12/2024 8:09 AM EDT Body Mass Index 26.92 07/12/2024 8:09 AM EDT documented in this encounter Patient Instructions * Patient Instructions* Carol Wiggins LPN - 07/12/2024 8:11 AM EDT Diabetes: Keeping Feet Healthy Inspect your feet every day for signs of a problem. Diabetes can damage nerves in your feet and cause neuropathy. This condition makes it hard for you to feel injuries or sore spots. Diabetes can also change blood flow, making it harder for small problems, like a blister, to heal properly. In fact, minor injuries can quickly become serious infections that send you to the hospital. Practice self-care to protect your feet and keep them healthy. Take Special Care Inspect your feet daily for problems such as redness, blisters, cracks, dry skin, or numbness. Use a mirror to see the bottoms of your feet. Or, ask for help. Manage your diabetes. Monitor and control your blood sugar. Take all your medications as prescribed. Avoid walking barefoot, even indoors. Wash your feet with warm water and mild soap. Dry well, especially between toes. Dont treat corns or calluses yourself. Talk to your doctor or service vehicle operator (a doctor who specializes in foot care) if you need assistance trimming your toenails. Use moisturizing cream or lotion if you have dry skin, but dont use it between toes. Dont use heating pads on your feet. If you have neuropathy, you could get a burn and not feel it. Stop smoking. Smoking restricts blood flow and can make it harder for wounds to heal. Have Regular Checkups Foot problems can develop quickly. So be sure to follow your healthcare teams schedule for regular checkups. During office visits, take off your shoes and socks as soon as you get in the exam room. Ask your healthcare provider to examine your feet for problems. This will make it easier to find and treat small skin irritations before they get worse. Regular checkups can also help keep track of the blood flow and feeling in your feet. If you have neuropathy, you may need to have checkups more often. Wear Proper Footwear Wearing proper footwear is very important. If areas of your feet have been damaged by too much pressure, your healthcare provider may recommend changing your footwear. In some cases, avoiding high heels or tight work boots may be all thats needed. Or, your healthcare provider may recommend special shoes or custom inserts. These help protect your feet and keep existing irritations from getting worse. If you need special footwear, ask your healthcare provider if you qualify for [employer] diabetic shoe program. Make Sure Shoes and Socks Fit Any pair of shoes--new or old--should feel comfortable as soon as you put them on. There shouldnt be any rubbing when you walk. Wear the right shoe for any activity. For instance, a running shoe is designed to keep your feet injury-free while jogging. Buy shoes at the end of the day, when your feet are larger. Make sure they provide support without feeling too loose. Make sure your socks fit, t oo. Wear soft, seamless, well-padded socks for activity. Cotton or microfiber socks are best to help to absorb sweat. To protect your feet, avoid shoes that are open-toed or open-heeled. If you have questions about what kinds of shoes and socks are best, talk to your healthcare team. Get Regular Exercise Regular exercise improves blood flow in your feet. It also increases foot strength and flexibility.Gentle exercises, like walking or riding a stationary bicycle, are best. You can also do special foot exercises. Just be sure to talk with your healthcare provider before starting any exercise program. Also mention if any exercise causes pain, redness, or other signs of foot problems. Note: If you have any kind of break in the skin of your foot or ankle, keep the area clean. Then call your doctor--especially if the area doesnt appear to be healing. [id number] [employer], [address] [place] [address], [place] [address]. All rights reserved. This information is not intended as a substitute for professional medical care. Always follow your healthcare professional's instructions. documented in this encounter Progress Notes * Artemio Truong, - 07/12/2024 8:41 AM EDT SUBJECTIVE: Mitchel Mcpherson is a 78 year old male. Chief Complaint Patient presents with Follow Up HPI: Patient is an 78 year old male with a history of PMR, Type II, Diabetic Retinopathy, HTN, Hyperlipidemia, Atrial Fibrillation, and Osteoporosis that is seen for follow up. No chest pain or shortness of breath are present. Weight is stable and appetite is good. No recent falls. Fatigue os stable. Hehas urinary urgency for a few months. 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 Vitamin D3 50 MCG (1999 [place]) Oral Capsule Take 1 Capsule by mouth every evening. 30 Cap 5 Atorvastatin Calcium 20 MG Oral Tablet (Lipitor) Take 1 Tablet by mouth in the morning. 100 Tablet 3 predniSONE 5 MG Oral Tablet (Deltasone) TAKE ONE TABLET BY MOUTH EVERY MORNING & ONE TABLET BEFORE BEDTIME 200 Tablet 2 Warfarin Sodium 5 MG Oral Tablet (Coumadin) [...] MINUTES AFTER TAKING TABLET 15 Tablet 2 Blood Glucose Monitoring Suppl (ONETOUCH ULTRA 2) w/Device KIT OneTouch Ultra Blue In Vitro Strip (Glucose Blood) Use to test once daily. DX:E11.9 100 Strip 3 OneTouch Delica Lancets 33G Use to test once daily. DX: E11.9 100 Each 3 Trulicity 3 MG/0.5ML Subcutaneous Solution Pen-injector (Dulaglutide) Inject 3 mg under the skin once a week for 28 days. 2 mL 0 No current facility-administered medications for this visit. The patient's medication list was reviewed and updated as needed. Past Medical History: Diagnosis Date Benign neoplasm of colon 09/16/07 hyperplastic polyps--repeat 3 years DM type 2, goal A1c below 7 Dyslipidemia, goal LDL below 100 09/20/2009 Per Lipid Taxonomy. HTN, goal below 140/90 Long-term current use of steroids 01/10/2011 Obesity, Class I, BMI 30.0-34.9 (see actual BMI) 01/03/2010 Per Obesity Taxonomy Permanent atrial fibrillation (HCC) 10/19/2008 Polymyalgia rheumatica (HCC) 01/10/2011 Past Surgical History: Procedure Laterality Date COLONOSCOPY W/ LESION REMOVAL, SNARE 09/16/2007 hyperplastic polyps--repeat 3 years COLONOSCOPY, DIAGNOSTIC (RECTUM) 08/28/2010 diverticulosis EXPLORATION OF TEAR DUCTS left duct drained KNEE ARTHROSCOPY/SURGERY 02/09/2009 [facility] ortho/left knee OTHER (INFORMATION) ACT 112 SIGNED 11/25/23; DR ELLIS REMOVAL OF NOSE POLYP(S), SIMPLE REMOVE CATARACT, INSERT LENS PROSTH Left 01/01/2022 REMOVE CATARACT, INSERT LENS PROSTH Right 01/15/2022 REPAIR RUPTURED ROTATOR CUFF, CHRON Left Dr. Abad Review of patient's allergies indicates: No Known Allergies Review of Systems Constitutional: Positive for fatigue. Negative for appetite change, chills, fever and unexpected weight change. Respiratory: Negative for cough, shortness of breath and wheezing. Cardiovascular: Negative for chest pain, palpitations and leg swelling. Gastrointestinal: Negative for abdominal pain, blood in stool, constipation, diarrhea, nausea and vomiting. Genitourinary: Positive for urgency. Negative for dysuria, frequency and hematuria. Musculoskeletal: Positive for arthralgias, back pain and myalgias. Neurological: Negative for dizziness, syncope and headaches. Psychiatric/Behavioral: Negative for confusion, decreased concentration and sleep disturbance. OBJECTIVE: BP 116/84 | Pulse 88 | Temp 36.4 C (97.6 F) | Resp 16 | Ht 1.778 m (5' 10") | Wt 85.1 kg (187 lb 9.6 oz) | SpO2 96% | BMI 26.92 kg/m | BSA 2.05 m Physical Exam Vitals and nursing note reviewed. Constitutional: General: He is not in acute distress. Appearance: Normal appearance. He is not toxic-appearing. HENT: Head: Normocephalic and atraumatic. Cardiovascular: Rate and Rhythm: Normal rate. Rhythm irregular. Heart sounds: Normal heart sounds. No murmur heard. No gallop. Pulmonary: Effort: Pulmonary effort is normal. Breath sounds: Normal breath sounds. No wheezing, rhonchi or rales. Abdominal: General: Bowel sounds are normal. There is no distension. Palpations: Abdomen is soft. Tenderness: There is no abdominal tenderness. Musculoskeletal: Right lower leg: No edema. Left lower leg: No edema. Neurological: Mental Status: He is alert and oriented to person, place, and time. Mental status is at baseline. Motor: No weakness. Gait: Gait normal. Psychiatric: Mood and Affect: Mood normal. Behavior: Behavior normal. PLAN AND ASSESSMENT: Type 2 diabetes, HbA1C goal < 8% ([facility]) (Primary) - DIABETES FOOT EXAM - ALBUMIN / CREATININE RATIO, URINE; Future; Expected date: 07/12/2024 - HEMOGLOBIN A1C; Future; Expected date: 07/12/2024 Continue Trulicity, Glipizide, and Metformin Permanent atrial fibrillation ([facility]) Continue Warfarin, and Metoprolol DYSLIPIDEMIA, GOAL LDL BELOW 100 Continue Atorvastatin HTN, goal below 140/90 Continue Enalapril, and Metoprolol Type 2 diabetes mellitus with both eyes affected by mild nonproliferative retinopathy without macular edema, without long-term current use of insulin ([facility]) - ALBUMIN / CREATININE RATIO, URINE; Future; Expected date: 07/12/2024 PMR (polymyalgia rheumatica) ([facility]) Continue Prednisone and Duloxetine Other male erectile dysfunction Continue Sildenafil Other orders - COVID-19, MRNA-LNP, PF, 24-25, 30MCG/0.3ML, IM, 12YRS AND ABOVE ([employer]) Follow Up: Return in about 4 months (around 11/12/2024), or if symptoms worsen or fail to improve. Artemio Truong DO 8:41 AM 07/12/2024 * Carol Wiggins LPN - 07/12/2024 8:11 AM EDT Socks and Shoes Removed for Annual Diabetic Foot Screening RIGHT FOOT: No Reddened, Cracking, Or Open Areas Noted. RIGHT Dorsalis Pedis Pulse: Palpable RIGHT Posterior Tibial Pulse: Palpable RIGHT Monofilament:Patient reports feeling monofilament pressure on plantar surface of foot LEFT FOOT: No Reddened, Cracking or Open Areas Noted. LEFT Dorsalis Pedis Pulse: Palpable LEFT Posterior Tibial Pulse: Palpable LEFT Monofilament:Patient reports feeling monofilament pressure on plantar surface of foot Do you need diabetic shoes: N/A documented in this encounter Plan of Treatment Upcoming Encounters Date Type Department Care Team (Late st Contact Info) Description 08/04/2024 8:00 AM EDT Anticoagulation Family Practice [address] [place] [address] [address] [place] [phone] College, Pharmacist [address] [place] [address] 08/08/2024 8:00 AM EDT Office Visit Ophthalmology, [facility] [address] [address] Brenden Ellis, [address] [place] [address] 08/30/2024 8:40 AM EST Office Visit Rheumatology [place] [id number] Bertha Nguyen [place] [address] Isiah Perez MD [address] [place] [address] 11/15/2024 8:00 AM EST Office Visit Family Practice [address] [place] [address] [address] [facility] [phone] Artemio Truong, DO [address] [place] [address] Pending Results Name Type Priority Associated Diagnoses Date /Time ALBUMIN / CREATININE RATIO, URINE Lab Routine Type 2 diabetes, HbA1C goal < 8% (HCC) Type 2 diabetes mellitus with both eyes affected by mild nonproliferative retinopathy without macular edema, without long-term current use of insulin (HCC) 07/12/2024 8:47 AM EDT HEMOGLOBIN A1C Lab Routine Type 2 diabetes, HbA1C goal < 8% ([facility]) 07/12/2024 8:44 AM EDT Scheduled Orders Name Type Priority Associated Diagnoses Orde r Schedule ALBUMIN / CREATININE RATIO, URINE Lab Routine Type 2 diabetes, HbA1C goal < 8% ([facility]) Type 2 diabetes mellitus with both eyes affected by mild nonproliferative retinopathy without macular edema, without long-term current use of insulin (HCC) Expected: 07/12/2024, Expires: 07/12/2025 HEMOGLOBIN A1C Lab Routine Type 2 diabetes, HbA1C goal < 8% ([facility]) Expected: 07/12/2024 (Approximate), Expires: 07/12/2025 Health Maintenance Due Date Last Done Comments Adult Wellness Visit 03/31/2015 03/31/2014 Albumin/Creatinine Ratio 06/23/2024 023, 09/01/2022, 07/23/2022, Additional history exists HbA1c 09/10/2024 03/10/2024, 10/13, 06/23/2023, Additional history exists Depression Screening 11/03/2024 11/03/2023 GFR 11/03/2024 11/03/2023, 12/12, 07/11/2022, Additional history exists Diabetic Eye Exam 11/23/2024 11/23/2023, , 11/23/2023, Additional history exists B-12 12/01/2024 12/01/2023, 10/13, 01/08/2023, Additional history exists Diabetic Foot Exam 07/12/2025 07/12/2024, 0 04/29/2023, 07/23/2022, Additional history exists DXA Scan 08/10/2025 08/10/2023, 07/14, 08/05/2021, Additional history exists DTap/Tdap Vaccines (3 - Td or Tdap) 07/23/2032 07/23/2022, 04/19/2012, 01/29/2001 Pneumococcal Vaccine: 65+ Years Completed 03/03/2016, 01/03/2009, 09/01/2003 VITAMIN D LEVEL ONCE IN A LIFETIME-USE SMARTSET# [id number] Completed 11/26/2021, 08/09/2021, 09/02/2019, Additional history exists Zoster Vaccines Completed 03/27/2022, 11/26/2021 Influenza Vaccine (FLU shot) Completed , 06/23/2023, 07/11/2022, Additional history exists COVID-19 Vaccine Completed 07/12/2024, [...] mention of complication, not stated as uncontrolled Permanent atrial fibrillation (HCC) Atrial fibrillation DYSLIPIDEMIA, GOAL LDL BELOW 100 Other and unspecified hyperlipidemia HTN, goal below 140/90 Unspecified essential hypertension Type 2 diabetes mellitus with both eyes affected by mild nonproliferative retinopathy without macular edema, without long-term current use of insulin (HCC) PMR (polymyalgia rheumatica) (HCC) Polymyalgia rheumatica Other male erectile dysfunction documented in this encounter Care Teams Turkey Cleaner Relationship Specialty Start Date End Date Artemio Truong DO [address] [place] [facility] [place] [address] PCP - General Internal Medicine 04/20/24 documented as of this encounter
--- OUTSIDE RECORDS SUMMARY | 2024-11-06 08:42 | External Medical Summary | Summary of Care ---
Author Name Unknown Organization [facility] Address [address] [place] [address] Phone [phone] Care Team Providers Care Marketing Support Specialist Name Role Phone Artemio Truong DO Primary Care Provider [phone] Reason for Visit * Reason Comments Follow Up Encounter Details Date Type Department Care Team (Latest Contact Info) Description 07/12/2024 8:00 AM EDT Office Visit Family Practice [facility], [place] [address] [place] [phone] Artemio Truong DO [address] [place] [address] Type 2 diabetes, HbA1C goal < 8% ([facility])*; Permanent atrial fibrillation ([facility]); DYSLIPIDEMIA, GOAL LDL BELOW 100; HTN, goal below 140/90; Type 2 diabetes mellitus with both eyes affected by mild nonproliferative retinopathy without macular edema, without long-term current use of insulin ([facility]); PMR (polymyalgia rheumatica) ([facility]); Other male erectile dysfunction Allergies No known active allergiesdocumented as of this encounter (statuses as of 07/13/2024) Medications Medication Sig Dispensed Refills Start Date End Date Status Blood Glucose Monitoring Suppl (KastTOUCH ULTRA 2) w/Device KITIndications:Ty pe 2 diabetes mellitus with hemoglobin A1c goal of less than 7.0% ([facility]) 12/15/2018 Active acetaminophen (TYLENOL) 500 MG Tablet Take 1-2 Tablets by mouth every 6 hours as needed for Pain. Active Vitamin D3 50 MCG (1999 [place]) Oral Capsule Take 1 Capsule by mouth every evening. 30 Cap 5 08/11/2021 Active OneTouch Ultra Blue In Vitro Strip (Glucose Blood)Indications :Type 2 diabetes mellitus with hemoglobin A1c goal of less than 7.0% ([facility]) Use to test once daily. DX:E11.9 100 Strip 3 07/28/2022 Active OneTouch Delica Lancets 33G Use to test once daily. DX: E11.9 100 Each 3 07/28/2022 Active Atorvastatin Calcium 20 MG Oral Tablet (Lipitor) Take 1 Tablet by mouth in the morning. 100 Tablet 3 06/23/2023 Active predniSONE 5 MG Oral Tablet (Deltasone)Indica tions:PMR (polymyalgia rheumatica) ([facility]) TAKE ONE TABLET BY MOUTH EVERY MORNING & ONE TABLET BEFORE BEDTIME 200 Tablet 2 10/07/2023 4 Active Warfarin Sodium 5 MG Oral Tablet (Coumadin)Indicat ions:Chronic atrial fibrillation ([facility]) Take 1 tablet by mouth once daily or as directed by anticoagulation clinic 90 Tablet 3 10/21/2023 Active Vitamin B 12 500 MCG Oral TabletIndications :Vitamin B 12 deficiency Take 1 Tablet by mouth daily. 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.] calluses yourself. Talk to your doctor or belt maker helper (a doctor who specializes in foot care) [...] the area doesnt appear to be healing. [id number] [employer], [address] [place] [address]. All rights reserved. 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 ([facility]) Other male erectile dysfunction Current Outpatient Medications [...] DUCTS left duct drained KNEE ARTHROSCOPY/SURGERY 02/09/2009 count includes the [facility] ortho/left knee OTHER (INFORMATION) ACT 112 [...] Type 2 diabetes, HbA1C goal < 8% ([facility]) (Primary) - DIABETES FOOT EXAM - ALBUMIN / CREATININE RATIO, URINE; Future; Expected date: 07/12/2024 - HEMOGLOBIN A1C; Future; Expected date: 07/12/2024 Continue Trulicity, Glipizide, and Metformin Permanent atrial fibrillation ([facility]) Continue Warfarin, and Metoprolol DYSLIPIDEMIA, GOAL LDL BELOW 100 Continue Atorvastatin HTN, goal below 140/90 Continue Enalapril, and Metoprolol Type 2 diabetes mellitus with both eyes affected by mild nonproliferative retinopathy without macular edema, without long-term current use of insulin ([facility]) - ALBUMIN / CREATININE RATIO, URINE; Future; Expected date: 07/12/2024 PMR (polymyalgia rheumatica) ([facility]) Continue Prednisone and Duloxetine Other male erectile dysfunction Continue Sildenafil Other orders - COVID-19, MRNA-LNP, PF, 24-25, 30MCG/0.3ML, IM, 12YRS AND ABOVE ([employer]) Follow Up: Return in about 4 months [...] 08/04/2024 8:00 AM EDT Anticoagulation Family Practice [address] [place] [address] [address] [facility] [phone] College, Pharmacist [address] [place] [address] [place] [address] 08/08/2024 8:00 AM EDT Office Visit Ophthalmology, [facility] [address] [facility] [place] [address] Brenden Ellis, 132 [facility] [place] [address] 08/30/2024 8:40 AM EST Office Visit Rheumatology [place] [phone] [place] [address] Isiah Perez MD [address] [place] [address] 11/15/2024 8:00 AM EST Office Visit Family Practice [address] [place] [address] 293 [place] [address] Artemio Truong, DO [address] [place] [address] Health Maintenance Due Date Last Done Comments [...] D LEVEL ONCE IN A LIFETIME-USE SMARTSET# [id number] Completed 11/26/2021, 08/09/2021, 09/02/2019, Additional history exists [...] Procedure Name Priority Date/Time Associated Diagnosis Comments ALBUMIN / CREATININE RATIO, URINE Routine 07/12/2024 8:47 AM EDT Type 2 diabetes, HbA1C goal < 8% (HCC) Type 2 diabetes mellitus with both eyes affected by mild nonproliferative retinopathy without macular edema, without long-term current use of insulin (HCC) HEMOGLOBIN A1C Routine 07/12/2024 8:44 AM EDT Type 2 diabetes, HbA1C goal < 8% (HCC) documented in this encounter Results * (ABNORMAL) ALBUMIN / CREATININE RATIO, URINE (07/12/2024 8:47 AM EDT) Albumin, Random Urine 2.00 mg/dL 07/12/2024 6:10 PM EDT [facility] Creatinine, Random Urine 56 mg/dL 07/12/2024 6:10 PM EDT [facility] Albumin / Creatinine Ratio, Urine 36(H) <30 mg/g Creat 07/12/2024 6:10 PM EDT [facility] Urine Urine specimen / Unknown Non-blood Collection / Unknown 07/12/2024 8:47 AM EDT 07/12/2024 8:47 AM EDT Narrative [facility] - 07/12/2024 6:10 PM EDT Normal: <30 mg/g creatinine High: 30-300 mg/g creatinine Very High: >300 mg/g creatinine Nephrotic: >2200 mg/g creatinine Artemio Truong DO LAB URINE ORDERABLES [facility] [address] [place] [address] * (ABNORMAL) HEMOGLOBIN A1C (07/12/2024 8:44 AM EDT) Hemoglobin A1C 8.1(H) 4.0 - 5.6 % 07/12/2024 5:19 PM EDT [facility] Comment:The use of HbA1c to monitor glycemic status is based on normal hemoglobin and HbA composition. This test should not be used in patients with abnormal hemoglobin that affects the half life of the red blood cell or the in vivo glycation rates. Estimated Average Glucose 186(H) <126 mg/dL 07/12/2024 5:19 PM EDT [facility] Blood Venous blood specimen / Unknown Venipuncture / Unknown 07/12/2024 8:44 AM EDT 07/12/2024 8:44 AM EDT Artemio Truong DO LAB BLOOD ORDERABLES Performing Organization Address City/State/RUST Co de Phone Number [facility] [address] [place] [address] documented in this encounter Visit Diagnoses Diagnosis Type 2 [...] dysfunction documented in this encounter Care Teams Marketing Support Specialist Relationship Specialty Start Date End Date Artemio Truong DO [address] [place] [address] PCP - General Internal Medicine 04/20/24 documented as of this encounter
--- OUTSIDE RECORDS SUMMARY | 2024-11-06 08:42 | External Medical Summary | Summary of Care ---
Author Name Unknown Organization [facility] Address [address] [place] [address] Phone [phone] Care Team Providers Care Food Analyst Name Role Phone Artemio Truong DO Primary Care Provider [phone] Reason for Visit * Reason Onset Date Comments Test Results 07/13/202407/13 Encounter Details Date Type Department Care Team (Late st Contact Info) Description 07/13/2024 Telephone Family Practice 65 [facility], [place] [address] [place] [address] Artemio Truong DO [address] [place] [address] Test Results (07/13) Allergies No known active allergiesdocumented as of this encounter (statuses as of 07/13/2024) Medications Medication Sig Dispensed Refills Start Date End Date Status Blood Glucose Monitoring Suppl (ONETOUCH ULTRA 2) w/Device KITIndications:Ty pe 2 diabetes mellitus with hemoglobin A1c goal of less than 7.0% ([facility]) 12/15/2018 Active acetaminophen (TYLENOL) 500 MG Tablet Take 1-2 Tablets by mouth every 6 hours as needed for Pain. Active Vitamin D3 50 MCG (1999 [place]) Oral Capsule Take 1 Capsule by mouth every evening. 30 Cap 5 08/11/2021 Active OneTouch Ultra Blue In Vitro Strip (Glucose Blood)Indications :Type 2 diabetes mellitus with hemoglobin A1c goal of less than 7.0% ([facility]) Use to test once daily. DX:E11.9 100 Strip 3 07/28/2022 Active Kvng Luevano Lancets 33G Use to test once daily. [...] goal of less than 7.0% ([facility]) TAKE ONE TABLET BY MOUTH TWICE [...] goal of less than 7.0% ([facility]) TAKE TWO TABLETS BY MOUTH WITH [...] HTN Protocol #27. 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 Relayed information from Dr. Truong. Pt acknowledged understanding. No questions at this time. * Telephone Encounter - Karen Kelly LPN - 07/13/2024 11:06 AM EDT Call placed to patient - currently not home. will have him call office when he returns home. * Telephone Encounter - Karen Kelly LPN - 07/13/2024 11:05 AM EDT ----- Message from Artemio Truong DO sent at 07/13/2024 8:21 AM EDT ----- Hgba1c has improved slightly. Still not at goal Continue current medications. documented in this encounter Plan of Treatment Upcoming Encounters Date Type Department Care Team (Late st Contact Info) Description 08/04/2024 8:00 AM EDT Anticoagulation Family Practice 65 [facility] 293 [place] [address] College, Pharmacist [address] [facility] 293 [facility] [place] [address] 08/08/2024 8:00 AM EDT Office Visit Ophthalmology, [facility] 132 [facility] [place] [address] Brenden Ellis DO [address] [place] [address] 08/30/2024 8:40 AM EST Office Visit Rheumatology [facility] [address] [place] [address] Isiah Perez MD [address] [place] [address] 11/15/2024 8:00 AM EST Office Visit Family Practice [address] [facility], [place] 293 [place] [address] Artemio Truong, 293 [facility] [place] [address] Health Maintenance Due Date Last Done Comments [...] D LEVEL ONCE IN A LIFETIME-USE SMARTSET# [id number] Completed 11/26/2021, 08/09/2021, 09/02/2019, Additional history exists [...] filedocumented as of this encounter Care Teams Food Analyst Relationship Specialty Start Date End Date Artemio Truong DO [address] [place] [address] PCP - General Internal Medicine 04/20/24 documented as of this encounter
--- OUTSIDE RECORDS SUMMARY | 2024-11-06 08:42 | External Medical Summary | Summary of Care ---
Author Name Unknown Organization [facility] Address [address] [place] [address] Phone [phone] Care Team Providers Care Sports Nutritionist Name Role Phone Artemio Truong DO Primary Care Provider [phone] Reason for Visit * Reason Comments Follow Up Encounter Details Date Type Department Care Team (Latest Contact Info) Description 07/12/2024 8:00 AM EDT Office Visit Family Practice 65 [facility] [place] [address] [place] [phone] Artemio Truong DO [address] [place] [address] Type 2 diabetes, HbA1C goal < 8% ([facility])*; Permanent atrial fibrillation ([facility]); DYSLIPIDEMIA, GOAL LDL BELOW 100; HTN, goal below 140/90; Type 2 diabetes mellitus with both eyes affected by mild nonproliferative retinopathy without macular edema, without long-term current use of insulin ([facility]); PMR (polymyalgia rheumatica) ([facility]); Other male erectile dysfunction Allergies No known active allergiesdocumented as of this encounter (statuses as of 07/12/2024) Medications Medication Sig Dispensed Refills Start Date End Date Status Blood Glucose Monitoring Suppl (KanjoyaTOUCH ULTRA 2) w/Device KITIndications:Ty pe 2 diabetes mellitus with hemoglobin A1c goal of less than 7.0% ([facility]) 12/15/2018 Active acetaminophen (TYLENOL) 500 MG Tablet Take 1-2 Tablets by mouth every 6 hours as needed for Pain. Active Vitamin D3 50 MCG (1999 [place]) Oral Capsule Take 1 Capsule by mouth every evening. 30 Cap 5 08/11/2021 Active OneTouch Ultra Blue In Vitro Strip (Glucose Blood)Indications :Type 2 diabetes mellitus with hemoglobin A1c goal of less than 7.0% ([facility]) Use to test once daily. DX:E11.9 100 Strip 3 07/28/2022 Active OneTouch Delica Lancets 33G Use to test once daily. DX: E11.9 100 Each 3 07/28/2022 Active Atorvastatin Calcium 20 MG Oral Tablet (Lipitor) Take 1 Tablet by mouth in the morning. 100 Tablet 3 06/23/2023 Active predniSONE 5 MG Oral Tablet (Deltasone)Indica tions:PMR (polymyalgia rheumatica) ([facility]) TAKE ONE TABLET BY MOUTH EVERY MORNING & ONE TABLET BEFORE BEDTIME 200 Tablet 2 10/07/2023 4 Active Warfarin Sodium 5 MG Oral Tablet (Coumadin)Indicat ions:Chronic atrial fibrillation ([facility]) Take 1 tablet by mouth once daily or as directed by anticoagulation clinic 90 Tablet 3 10/21/2023 Active Vitamin B 12 500 MCG Oral TabletIndications :Vitamin B 12 deficiency Take 1 Tablet by mouth daily. 11/04/2023 Active metFORMIN HCl 1000 MG Oral Tablet (Glucophage)Indic ations:Type 2 diabetes mellitus with hemoglobin A1c goal of less than 7.0% ([facility]) TAKE ONE TABLET BY MOUTH [...] HTN Protocol #27. 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 Talk to your doctor or naval aircrewman operator (a doctor who specializes in foot [...] the area doesnt appear to be healing. [phone] [employer], [address] [place] [address], [place] [address]. All rights reserved. 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 ([facility]) Other male erectile dysfunction Current Outpatient Medications [...] DUCTS left duct drained KNEE ARTHROSCOPY[facility]SURG[facility] OTHER (INFORMATION) ACT 112 [...] Type 2 diabetes, HbA1C goal < 8% ([facility]) (Primary) - DIABETES FOOT EXAM - ALBUMIN / CREATININE RATIO, URINE; Future; Expected date: 07/12/2024 - HEMOGLOBIN A1C; Future; Expected date: 07/12/2024 Continue Trulicity, Glipizide, and Metformin Permanent atrial fibrillation ([facility]) Continue Warfarin, and Metoprolol DYSLIPIDEMIA, GOAL LDL BELOW 100 Continue Atorvastatin HTN, goal below 140/90 Continue Enalapril, and Metoprolol Type 2 diabetes mellitus with both eyes affected by mild nonproliferative retinopathy without macular edema, without long-term current use of insulin ([facility]) - ALBUMIN / CREATININE RATIO, URINE; Future; Expected date: 07/12/2024 PMR (polymyalgia rheumatica) ([facility]) Continue Prednisone and Duloxetine Other male erectile dysfunction Continue Sildenafil Other orders - COVID-19, MRNA-LNP, PF, 24-25, 30MCG/0.3ML, IM, 12YRS AND ABOVE ([employer]) Follow Up: Return in about 4 months [...] 08/04/2024 8:00 AM EDT Anticoagulation Family Practice [address] [place] [address] [address] [place] [address] College, Pharmacist [address] [place] [address] 08/08/2024 8:00 AM EDT Office Visit Ophthalmology, [facility] [address] [place] [address] Brenden Ellis, [address] [place] [address] 08/30/2024 8:40 AM EST Office Visit Rheumatology [place] [phone] [place] [address] Isiah Perez MD [address] [place] [address] 11/15/2024 8:00 AM EST Office Visit Family Practice [address] [place] [address] [facility] [address] Artemio Truong, DO [address] [place] [address] Pending Results Name Type Priority Associated Diagnoses Date /Time ALBUMIN / CREATININE RATIO, URINE Lab Routine Type 2 diabetes, HbA1C goal < 8% (HCC) Type 2 diabetes mellitus with both eyes affected by mild nonproliferative retinopathy without macular edema, without long-term current use of insulin (HCC) 07/12/2024 8:47 AM EDT HEMOGLOBIN A1C Lab Routine Type 2 diabetes, HbA1C goal < 8% ([facility]) 07/12/2024 8:44 AM EDT Scheduled Orders Name Type Priority Associated Diagnoses Orde r Schedule ALBUMIN / CREATININE RATIO, URINE Lab Routine Type 2 diabetes, HbA1C goal < 8% ([facility]) Type 2 diabetes mellitus with both eyes affected by mild nonproliferative retinopathy without macular edema, without long-term current use of insulin (HCC) Expected: 07/12/2024, Expires: 07/12/2025 HEMOGLOBIN A1C Lab Routine Type 2 diabetes, HbA1C goal < 8% ([facility]) Expected: 07/12/2024 (Approximate), Expires: 07/12/2025 Health Maintenance [...] D LEVEL ONCE IN A LIFETIME-USE SMARTSET# [id number] Completed 11/26/2021, 08/09/2021, 09/02/2019, Additional history exists [...] dysfunction documented in this encounter Care Teams Sports Nutritionist Relationship Specialty Start Date End Date Artemio Truong DO [address] [place] [facility] [place] [place] [address] PCP - General Internal Medicine 04/20/24 documented as of this encounter
--- OUTSIDE RECORDS SUMMARY | 2024-11-06 08:42 | External Medical Summary | Summary of Care ---
Author Name Unknown Organization [facility] Address [address] [place] [address] Phone [phone] Care Team Providers Care Elevator Repair Mechanic Name Role Phone Pascual Truong DO Primary Care Provider [phone] Reason for Visit * Reason Comments Medication Refill Encounter Details Date Type Department Care Team (Late st Contact Info) Description 07/01/2024 Refill Family Practice [address], [place] [address] [place] [address] Pascual Truong DO [address] [place] [address] Allergies No known active allergiesdocumented as of this encounter (statuses as of 07/01/2024) Medications Medication Sig Dispensed Refills Start Date End Date Status Blood Glucose Monitoring Suppl (Aeryon LabsTOUCH ULTRA 2) w/Device KITIndications:Ty pe 2 diabetes mellitus with hemoglobin A1c goal of less than 7.0% ([facility]) 9 Active acetaminophen (TYLENOL) 500 MG Tablet Take 1-2 Tablets by mouth every 6 hours as needed for Pain. Active Vitamin D3 50 MCG (1999 [place]) Oral Capsule Take 1 Capsule by mouth every evening. 30 Cap 5 1 Active OneTouch Ultra Blue In Vitro Strip (Glucose Blood)Indications :Type 2 diabetes mellitus with hemoglobin A1c goal of less than 7.0% ([facility]) Use to test once daily. DX:E11.9 100 Strip 3 2 Active OneTouch Delica Lancets 33G Use to test once daily. DX: E11.9 100 Each 3 2 Active Atorvastatin Calcium 20 MG Oral Tablet (Lipitor) Take 1 Tablet by mouth in the morning. 100 Tablet 3 3 Active predniSONE 5 MG Oral Tablet (Deltasone)Indica tions:PMR (polymyalgia rheumatica) ([facility]) TAKE ONE TABLET BY MOUTH EVERY MORNING & ONE TABLET BEFORE BEDTIME 200 Tablet 2 3 10/06/20 24 Active Warfarin Sodium 5 MG Oral [...] hemoglobin A1c goal of less than 7.0% ([facility]) TAKE ONE TABLET BY MOUTH TWICE [...] hemoglobin A1c goal of less than 7.0% ([facility]) TAKE TWO TABLETS BY MOUTH WITH BREAKFAST, ONE TABLET WITH LUNCH AND ONE TABLET WITH DINNER 360 Tablet 3 4 03/18/20 25 Active Trulicity 3 MG/0.5ML Subcutaneous Solution Pen-injector (Dulaglutide)Loyda cations:Type 2 diabetes, HbA1C goal < 8% ([facility]) Inject 3 mg under the skin [...] TAKING TABLET 15 Tablet 2 4 Active Alendronate Sodium 70 MG Oral Tablet (Fosamax) TAKE ONE TABLET BY MOUTH ONCE A WEEK WITH 8 OZ OF WATER 30 MINUTES BEFORE FIRST MEAL OF THE DAY. 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 PMR (polymyalgia rheumatica) 01/10/2011 correction current use of systemic steroids 01/10 correction current use of anticoagulant therapy 0 11/27/2010 [...] as of this encounter (statuses as of 07/01/2024) Resolved Problems Problem Noted Date Diagnosed Date [...] as of this encounter (statuses as of 07/01/2024) Immunizations Name Administration Dates Next Due COVID-19 mRNA, LNP-s, No Pre serve, 2-Dose Series (Moderna) 12/22/2020,11/24/2020 COVID-19, MRNA-LNP, 23-24, P F, 30 MCG/0.3 mL, 12 YRS AND ABOVE, IM (PFIZER-Comirnaty) 08/03/2023 COVID-19, mRNA, LNP-s, PF, B ooster, [...] encounter Miscellaneous Notes * Telephone Encounter - Scotty Conteh [facility] - 07/01/2024 2:42 PM EDTSigned Prescriptions: Disp Refills Alendronate Sodium 70 MG Oral Tablet (Fosa*15 Tab*2 Sig: TAKE ONE TABLET BY MOUTH ONCE A WEEK WITH 8 OZ OF WATER 30 MINUTES BEFORE FIRST MEAL OF THE DAY. REMAIN UPRIGHT FOR 30 MINUTES AFTER TAKING TABLET Authorizing Provider: PASCUAL TRUONG Ordering User: SCOTTY CONTEH * Telephone Encounter - Keke Booker theater usher - 07/01/2024 11:21 AM EDT Did you pend patient's preferred pharmacy and medication before forwarding?yes Pharmacy: [facility] Pending Prescriptions: Disp Refills Alendronate Sodium 70 MG Oral Tablet (Fos*15 Tab*1 Sig: TAKE ONE TABLET BY MOUTH ONCE A WEEK WITH 8 OZ OF WATER 30 MINUTES BEFORE FIRST MEAL OF THE DAY. REMAIN UPRIGHT FOR 30 MINUTES AFTER TAKING TABLET Last Visit: 03/10/2024 (in office), Visit date not found (telemedicine) Next Visit: 07/12/2024 If no future appointments scheduled, and last appointment is greater than a year ago, please schedule patient for a follow-up appointment Last date the medication was ordered: 01/15/24 Is this request for a controlled substance?No Urine Drug Screen:No results found. However, due [...] AM ALT 39 10/10/2020 08:50 AM HGBA1C 8.3 (H) 03/10/2024 08:53 AM HGBA1C 9.4 (H) 03/26/2022 07:52 AM HGBA1C 8.8 (H) 09/02/2019 08:29 AM documented in this encounter Plan of Treatment Upcoming Encounters Date Type Department Care Team (Late st Contact Info) Description 07/12/2024 8:00 AM EDT Office Visit [facility] [address] Pascual Truong, 293 [facility] [place] [address] 08/04/2024 8:00 AM EDT Anticoagulation Family Practice 65 [facility] 293 [facility], [place] [address] College, Pharmacist [address] [place] [address] 08/08/2024 8:00 AM EDT Office Visit Ophthalmology, [facility] [address] [place] [address] Brenden Ellis, DO [address] [place] [address] 08/30/2024 8:40 AM EST Office Visit Rheumatology [place] [address] [place] [address] Isiah Perez MD [address] [place] [address] Health Maintenance Due Date Last Done Comments [...] D LEVEL ONCE IN A LIFETIME-USE SMARTSET# [id number] Completed 11/26/2021, 08/09/2021, 09/02/2019, Additional history exists [...] filedocumented as of this encounter Care Teams Elevator Repair Mechanic Relationship Specialty Start Date End Date Pascual Truong DO [address] [place] [address] PCP - General Internal Medicine 04/20/24 documented as of this encounter
--- OUTSIDE RECORDS SUMMARY | 2024-11-06 08:42 | External Medical Summary | Summary of Care ---
Author Name Unknown Organization [facility] Address [address] [place] [address] Phone [phone] Care Team Providers Care Residential Sales Consultant Name Role Phone Artemio Truong DO Primary Care Provider [phone] Reason for Visit * Reason Onset Date Comments Medication Administration 06/24/2024 Flu an d/or Pneumo Inj Dosage Adjustment In Person (Anticoag Clinic) Medication Management Encounter Details Date Type Department Care Team (Late st Contact Info) Description 06/24/2024 8:10 AM EDT Anticoagulation Family Practice [address] [address] College, Pharmacist [address] [address] Anticoagulation management encounter*; Permanent atrial fibrillation (HCC); extermination supervisor current use of anticoagulant therapy; Need for prophylactic vaccination and inoculation against influenza Allergies No known active allergiesdocumented as of this encounter (statuses as of 06/24/2024) Medications Medication Sig Dispensed Refills Start Date End Date Status Blood Glucose Monitoring Suppl (JymobUCH ULTRA 2) w/Device KITIndications:Ty pe 2 diabetes mellitus with hemoglobin A1c goal of less than 7.0% ([facility]) 12/15/2018 Active acetaminophen (TYLENOL) 500 MG Tablet Take 1-2 Tablets by mouth every 6 hours as needed for Pain. Active Vitamin D3 50 MCG (1999 [place]) Oral Capsule Take 1 Capsule by mouth every evening. 30 Cap 5 08/11/2021 Active OneTouch Ultra Blue In Vitro Strip (Glucose Blood)Indications :Type 2 diabetes mellitus with hemoglobin A1c goal of less than 7.0% ([facility]) Use to test once daily. DX:E11.9 100 Strip 3 07/28/2022 Active OneTouch Delica Lancets 33G Use to test once daily. DX: E11.9 100 Each 3 07/28/2022 Active Atorvastatin Calcium 20 MG Oral Tablet (Lipitor) Take 1 Tablet by mouth in the morning. 100 Tablet 3 06/23/2023 Active predniSONE 5 MG Oral Tablet (Deltasone)Indica tions:PMR (polymyalgia rheumatica) ([facility]) TAKE ONE TABLET BY MOUTH EVERY MORNING & ONE TABLET BEFORE BEDTIME 200 Tablet 2 10/07/2023 4 Active Warfarin Sodium 5 MG Oral Tablet (Coumadin)Indicat ions:Chronic atrial fibrillation ([facility]) Take 1 tablet by mouth once daily or as directed by anticoagulation clinic 90 Tablet 3 10/21/2023 Active Vitamin B 12 500 MCG Oral TabletIndications :Vitamin B 12 deficiency Take 1 Tablet by mouth daily. 11/04/2023 Active metFORMIN HCl 1000 MG Oral Tablet (Glucophage)Indic ations:Type 2 diabetes mellitus with hemoglobin A1c goal of less than 7.0% ([facility]) TAKE ONE TABLET BY MOUTH TWICE A DAY WITH FOOD. 200 Tablet 3 12/21/2023 5 Active Alendronate Sodium 70 MG Oral Tablet (Fosamax) TAKE ONE TABLET BY MOUTH ONCE A WEEK WITH 8 OZ OF WATER 30 MINUTES BEFORE FIRST MEAL OF THE DAY. 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 PMR (polymyalgia rheumatica) 01/10/2011 [facility] current use of systemic steroids 01/10 extermination supervisor current use of anticoagulant therapy 0 [...] as of this encounter (statuses as of 06/24/2024) Resolved Problems Problem Noted Date Diagnosed Date [...] as of this encounter (statuses as of 06/24/2024) Immunizations Name Administration Dates Next Due COVID-19 [...] on file documented as of this encounter Patient Instructions * Patient Instructions* Trung Walters RPh - 06/24/2024 8:18 AM EDT ~~PATIENT INSTRUCTIONS FOR FLU SHOT~~ Possible side effects of influenza vaccine, (flu shot), are usually mild and include: 1. Soreness or redness at injection site 2. Low grade fever 3. Body aches You may use Tylenol/Acetaminophen as needed for these symptoms. LET YOUR DOCTOR KNOW IMMEDIATELY IF YOU HAVE DIFFICULTY BREATHING OR SWALLOWING, EXPERIENCE ITCHINGOF FEET OR HANDS, HAVE SWELLING OF EYES, FACE OR INSIDE OF NOSE. documented in this encounter Progress Notes * Trung Walters RPh - 06/24/2024 8:16 AM EDT Medication Therapy Disease Management - Anticoagulation Patient: Mitchel Mcpherson | : 1945 Subjective Patient-Reported Symptoms: Patient Findings Negatives: Signs/symptoms of thrombosis, Signs/symptoms of bleeding, Change in health, Change in alcohol use, Change in activity, Upcoming invasive procedure, Missed doses, Extra doses, Change in medications, Change in diet/appetite, Bruising Objective Current Warfarin Dose As of 06/24/2024 Warfarin maintenance plan: 2.5 mg (5 mg x 0.5) every Mon, Wed, Fri; 5 mg (5 mg x 1) all other days INR Result As of 06/24/2024 INR goal: 2.0-3.0 INR used for dosin.3 (06/24/2024) Assessment & Plan Warfarin Plan As of 06/24/2024 Full warfarin instructions: 2.5 mg every Mon, Wed, Fri; 5 mg all other days No change documented: Trung Walters RPh Next INR check: 08/05/2024 Repeat PT/INR in 6 week(s) Weekly dose: not changed Additional Dosing Information: Description (Takes in AM) I spent a total of 10-19 minutes (exact time 15 mins) on the date of service in preparation, delivery, and documentation of the care provided to Mitchel Mcpherson excluding any time spent in the performance of separately billed services or time spent by another provider/QHP. PRE - ADMINISTRATION DOCUMENTATION Are you experiencing any cold symptoms or fever? No Have you had Guillain-[place] Syndrome (an illness that causes paralysis) within the last 6 weeks? No Have you had the flu shot in the past? YES Have you ever had a reaction to the flu shot? No Immunization Administration Documentation Time Out Procedure Performed: Yes Patient Identified (Ask Name/Date of ): Yes Does the patient have a fever greater than 101 degrees today? No Patient allergic to latex? No VFC Stock: No Immunization(s) verified: Yes, Immunization Name: Flu, VIS Sheet(s) given: Yes Verified Side and Site: Yes Verified Shot(s) with Parent(s)/Patient: Yes Trung Walters PharmD, [facility] PGY1 Physical Anthropologist Medication Therapy Management Clinic 06/24/2024 8:27 AM documented in this encounter Plan of Treatment Upcoming Encounters Date Type Department Care Team (Late st Contact Info) Description 07/12/2024 8:00 AM EDT Office Visit Family Practice [address] [place] [address] [facility] [address] Artemio Truong, 293 [facility] [address] 08/04/2024 8:00 AM EDT Anticoagulation Family Practice 65 [facility] [address] [facility] [address] College, Pharmacist [address] [place] [address] 08/08/2024 8:00 AM EDT Office Visit Ophthalmology, [facility] [address] [place] [address] Brenden Ellis, [address] [place] [address] 08/30/2024 8:40 AM EST Office [address]ology [address] [address] Isiah Perez MD [address] [place] [address] Health Maintenance Due Date Last Done Comments [...] D LEVEL ONCE IN A LIFETIME-USE SMARTSET# [id number] Completed 11/26/2021, 08/09/2021, 09/02/2019, Additional history exists [...] Comments INR FINGERSTICK, POINT OF CARE STAT 06/24/2024 8:19 AM EDT Permanent atrial fibrillation (HCC) Anticoagulation management encounter extermination supervisor current use of anticoagulant therapy documented in this encounter Results * INR FINGERSTICK, POINT OF CARE (06/24/2024 8:19 AM EDT) Fingerstick INR 2.3 INR 8:33 AM EDT [facility] 56-21 Blood 06/24/2024 8:19 AM EDT 06/24/2024 8:33 AM EDT Narrative [facility] 56-21 - 06/24/2024 8:33 AM EDT Therapeutic ranges for non-operative patients: Prophylaxsis/treatment of DVT: (Range:2.0-3.0) Treatment of pulmonary embolism:(Range:2.0-3.0) Prevention of systemic embolism from: -tissue heart valves -acute myocardial infarction -valvular heart disease -atrial fibrillation (Range: 2.0-3.0) Mechanical prosthetic valves: (Range: 2.5-3.5) Cecy Roche [facility] LAB PO INT OF CARE TEST DOCKED DEVICE UNSOLICITED RESULTS [facility] 56-21 [address] [place] [facility] [address], [facility] documented in this encounter Visit Diagnoses Diagnosis Anticoagulation management encounter- Primary Encounter for therapeutic drug monitoring Permanent atrial fibrillation (HCC) Atrial fibrillation [facility] current use of anticoagulant therapy Need for prophylactic vaccination and inoculation against influenza documented in this encounter Care Teams Residential Sales Consultant Relationship Specialty Start Date End Date Artemio Truong DO [address] [place] [address] PCP - General Internal Medicine 04/20/24 documented as of this encounter"
--- OUTSIDE RECORDS SUMMARY | 2024-11-06 08:42 | External Medical Summary ---
Author Name Unknown Address Unknown Organization K01:[facility] [place] [address] [place] [address] Laboratory Report Ordering Provider Test Date Status JANEL GARNER 07/12/2024 08:44:36 Final Observation Date Value Abnormality Reference (Units ) Status HbA1C 07/12/2024 08:44:36 8.1 Above high normal 4. 0-5.6 (%) Final The use of HbA1c to monitor glycemic status is based on normal hemoglobin and HbA composition. This test should not be used in patients with abnormal hemoglobin that affects the half life of the red blood cell or the in vivo glycation rates. Glucose, estimated average 07/12/2024 08:44:36 186 Above high normal <126 (mg/dL) Carter gutiérrez Performing Location [facility] [place] - [address] [place] [address]
--- OUTSIDE RECORDS SUMMARY | 2024-11-06 08:42 | External Medical Summary | Summary of Care ---
Author Name Unknown Organization [facility] Address [address] [place] [address] Phone [phone] Care Team Providers Care Freight Broker Name Role Phone Pascual Truong DO Primary Care Provider Reason for Visit * Reason Comments Medication Refill Encounter Details Date Type Department Care Team (Late st Contact Info) Description 06/15/2024 Refill Family Practice [address], [place] [address] [place] [address] Pascual Truong DO [address] [place] [address] Polymyalgia rheumatica (HCC) Allergies No known active allergiesdocumented as of this encounter (statuses as of 06/16/2024) Medications Medication Sig Dispensed Refills Start Date End Date Status Blood Glucose Monitoring Suppl (Arena SolutionsTOUCH ULTRA 2) w/Device KITIndications:Ty pe 2 diabetes mellitus with hemoglobin A1c goal of less than 7.0% ([facility]) 9 Active acetaminophen (TYLENOL) 500 MG Tablet Take 1-2 Tablets by mouth every 6 hours as needed for Pain. Active Vitamin D3 50 MCG (1999 [place]) Oral Capsule Take 1 Capsule by mouth every evening. 30 Cap 5 1 Active OneTouch Ultra Blue In Vitro Strip (Glucose Blood)Indications :Type 2 diabetes mellitus with hemoglobin A1c goal of less than 7.0% ([facility]) Use to test once daily. [...] goal of less than 7.0% ([facility]) TAKE ONE TABLET BY MOUTH TWICE A DAY WITH FOOD. 200 Tablet 3 4 12/21/19 25 Active Alendronate Sodium 70 MG Oral Tablet (Fosamax) TAKE ONE TABLET BY MOUTH ONCE A WEEK WITH 8 OZ OF WATER 30 MINUTES BEFORE FIRST MEAL OF THE DAY. REMAIN UPRIGHT FOR 30 MINUTES AFTER TAKING TABLET 15 Tablet 1 4 01/15/20 25 Active Sildenafil Citrate 20 MG Oral [...] goal of less than 7.0% ([facility]) TAKE TWO TABLETS BY MOUTH [...] OR CHEW. 100 Capsule 1 4 Active DULoxetine HCl 20 MG Oral Capsule Delayed Release Particles (Cymbalta)Indicat ions:Polymyalgia rheumatica (HCC) TAKE ONE CAPSULE BY MOUTH EVERY DAY. DO NOT CUT, CRUSH, OR CHEW. 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 PMR (polymyalgia rheumatica) 01/10/2011 care home current use of systemic steroids 01/10 care home current use of anticoagulant therapy 0 11/27/2010 [...] as of this encounter (statuses as of 06/16/2024) Resolved Problems Problem Noted Date Diagnosed Date [...] as of this encounter (statuses as of 06/16/2024) Immunizations Name Administration Dates Next Due COVID-19 [...] 65+ Yrs, IM (FLUAD) 07/19/2020 Seasonal Influenza, PF, 6 M & above, [...] Notes * Telephone Encounter - Scotty Conteh [facility] - 06/16/2024 12:05 PM EDTSigned Prescriptions: Disp Refills DULoxetine HCl 20 MG Oral Capsule Delayed *100 Ca*1 Sig: TAKE ONE CAPSULE BY MOUTH EVERY DAY. DO NOT CUT, CRUSH, OR CHEW.Authorizing Provider: PASCUAL TRUONG User: SCOTTY CONTEH documented in this encounter Plan of Treatment Upcoming Encounters Date Type Department Care Team (Late st Contact Info) Description 06/24/2024 8:10 AM EDT Anticoagulation Family Practice 65 [facility] 293 [place] [address] College, Pharmacist [address] [address] 07/12/2024 8:00 AM EDT Office Visit Family Practice 65 [facility] 293 [place] [address] Pascula Truong, 293 [place] [address] 08/08/2024 8:00 AM EDT Office Visit Ophthalmology, [facility] [address] [facility] [place] [address] Brenden Ellis, DO [address] [place] [address] 08/30/2024 8:40 AM EST Office Visit Rheumatology [address] [place] [address] Isiah Perez MD [facility] [address] [place] [address] Health Maintenance Due Date Last Done Comments Adult Wellness Visit 03/31/2015 03/31/2014 Diabetic Foot Exam 04/29/2024 04/29/2023, 1 , 07/23/2021, Additional history exists COVID-19 Vaccine ( season) 2024 08/03/2023, 08/05/2022, 03/08/2022, Additional history exists Influenza Vaccine (FLU shot) (#1) 2024 06/23/2023, 07/11/2022, 06/20/2021, Additional history exists Albumin/Creatinine Ratio 06/23/2024 023, [...] D LEVEL ONCE IN A LIFETIME-USE SMARTSET# [id number] Completed 11/26/2021, 08/09/2021, 09/02/2019, Additional history exists Zoster Vaccines Completed 03/27/2022, 11/26/2021 HPV (Gardasil) Vaccine Aged Out No lo [...] as of this encounter Visit Diagnoses Diagnosis Polymyalgia rheumatica (HCC) Polymyalgia rheumatica documented in this encounter Care Teams Freight Broker Relationship Specialty Start Date End Date Pascual Truong DO [address] [place] [address] PCP - General Internal Medicine 04/20/24 documented as of this encounter
--- OUTSIDE RECORDS SUMMARY | 2024-11-06 08:42 | External Medical Summary | Summary of Care ---
Author Name Unknown Organization [facility] Address [address] [place] [address] Phone [phone] Care Team Providers Care Special Education Supervisor Name Role Phone Pascual Truong DO Primary Care Provider [phone] Reason for Visit * Reason Comments Medication Refill Encounter Details Date Type Department Care Team (Late st Contact Info) Description 07/22/2024 Refill Family Practice [address] [place] [address] [place] [address] Pascual Truong DO [address] [place] [address] Allergies No known active allergiesdocumented as of this encounter (statuses as of 07/23/2024) Medications Medication Sig Dispensed Refills Start Date End Date Status Blood Glucose Monitoring Suppl ([place]refam[place].comTOUCH ULTRA 2) w/Device KITIndications:Ty pe 2 diabetes mellitus with hemoglobin A1c goal of less than 7.0% ([facility]) 9 Active acetaminophen (TYLENOL) 500 MG Tablet Take 1-2 Tablets by mouth every 6 hours as needed for Pain. Active Vitamin D3 50 MCG (1999 [place]) Oral Capsule Take 1 Capsule by mouth [...] DX: E11.9 100 Each 3 2 Active predniSONE 5 MG Oral Tablet (Deltasone)Indica tions:PMR (polymyalgia rheumatica) ([facility]) TAKE ONE TABLET BY MOUTH EVERY MORNING & ONE TABLET BEFORE BEDTIME 200 Tablet 2 3 10/06/20 24 Active Warfarin Sodium 5 MG Oral Tablet (Coumadin)Indicat ions:Chronic atrial fibrillation ([facility]) Take 1 tablet by mouth [...] diabetes, HbA1C goal < 8% ([facility]) Inject 3 mg under the [...] the morning. 100 Tablet 1 4 Active Atorvastatin Calcium 20 MG Oral Tablet (Lipitor) Take 1 Tablet by mouth in the morning. 100 Tablet 3 3 07/22/20 24 Discontinu ed(Refill) documented as of this encounter (statuses as of 07/23/2024) Active Problems Problem Noted Date Diagnosed Date [...] as of this encounter (statuses as of 07/23/2024) Resolved Problems Problem Noted Date Diagnosed Date [...] as of this encounter (statuses as of 07/23/2024) Immunizations Name Administration Dates Next Due COVID-19 mRNA, LNP-s, No Pre serve, 2-Dose Series (Moderna) 12/22/2020,11/24/2020 COVID-19, MRNA-LNP, 23-24, P F, 30 MCG/0.3 mL, 12 YRS AND ABOVE, IM (PFIZER-ComirnatInnovEco) 08/03/2023 COVID-19, MRNA-LNP, 24-25, P R, 30MCG/0.3ML, IM, 12YRS AND ABOVE (Prime Grid-ComirnatInnovEco) 07/12/2024 COVID-19, mRNA, LNP-s, PF, B ooster, [...] encounter Miscellaneous Notes * Telephone Encounter - Joshua Ramey, [facility] - 07/23/2024 8:25 AM EDTSigned Prescriptions: Disp Refills Atorvastatin Calcium 20 MG Oral Tablet (Li*100 Ta*1 Sig: Take 1 Tablet by mouth in the morning. Authorizing Provider: PASCUAL TRUONG Ordering User: JOSHUA RAMEY * Telephone Encounter - Audi Hernandez, buggy driver - 07/22/2024 3:05 PM EDT Did you pend patient's preferred pharmacy and medication before forwarding?yes Pharmacy: [facility] Pending Prescriptions: Disp Refills Atorvastatin Calcium 20 MG Oral Tablet (L*100 Ta*3 Sig: Take 1 Tablet by mouth in the morning. Last Visit: 07/12/2024 (in office), Visit date not found (telemedicine) Next Visit: 08/04/2024 If no future appointments scheduled, and last appointment is greater than a year ago, please schedule patient for a follow-up appointment Last date the medication was ordered: 06/23/23 Is this request for a controlled substance?No [...] AM HGBA1C 8.8 (H) 09/02/2019 08:29 AM Thank you, Audi Hernandez supervisor taping [employer] [facility] 07/22/2024, 3:05 PM documented in this encounter Plan of Treatment Upcoming Encounters Date Type Department Care Team (Late st Contact Info) Description 08/04/2024 8:00 AM EDT Anticoagulation Family Practice [address] [place] [address] [facility] [address] College, Pharmacist [address] [place] [address] [place] [address] 08/08/2024 8:00 AM EDT Office Visit Ophthalmology, [facility] 132 [facility] [place] [address] Brenden Ellis, DO 132 [facility] [place] [address] 08/30/2024 8:40 AM EST Office Visit Rheumatology [place] [id number] Bertha Nguyen [place] [address] Isiah Perez MD [address] [place] [address] 11/15/2024 8:00 AM EST Office Visit Family Practice 65 [facility] [address] [place] [address] Pascual Truong, 293 [place] [address] Health Maintenance Due Date Last Done Comments [...] D LEVEL ONCE IN A LIFETIME-USE SMARTSET# [id number] Completed 11/26/2021, 08/09/2021, 09/02/2019, Additional history exists [...] filedocumented as of this encounter Care Teams Special Education Supervisor Relationship Specialty Start Date End Date Pascual Truong DO [address] [place] [address] PCP - General Internal Medicine 04/20/24 documented as of this encounter
--- OUTSIDE RECORDS SUMMARY | 2024-11-06 08:42 | External Medical Summary | Summary of Care ---
Author Name Unknown Organization [facility] Address [address] [place] [address] Phone [phone] Care Team Providers Care Liability Claims Adjuster Name Role Phone Artemio Truong DO Primary Care Provider [phone] Encounter Details Date Type Department Care Team (Late st Contact Info) Description 07/26/2024 Population Health External Data Unspecified Department Allergies No known active allergiesdocumented as of this encounter (statuses as of 07/27/2024) Medications Medication Sig Dispensed Refills Start Date End Date Status Blood Glucose Monitoring Suppl (exozetTOUCH ULTRA 2) w/Device KITIndications:Ty pe 2 diabetes mellitus with hemoglobin A1c goal of less than 7.0% ([facility]) 12/15/2018 Active acetaminophen (TYLENOL) 500 MG Tablet Take 1-2 Tablets by mouth every 6 hours as needed for Pain. Active Vitamin D3 50 MCG (2000 [place]) Oral Capsule Take 1 Capsule by mouth every evening. 30 Cap 5 08/11/2021 Active OneTouch Ultra Blue In Vitro Strip (Glucose Blood)Indications :Type 2 diabetes mellitus with hemoglobin A1c goal of less than 7.0% ([facility]) Use to test once daily. DX:E11.9 100 Strip 3 07/28/2022 Active MagneticTouch Delica Lancets 33G Use to test once daily. DX: E11.9 100 Each 3 07/28/2022 Active predniSONE 5 MG Oral Tablet (Deltasone)Indica tions:PMR (polymyalgia rheumatica) ([facility]) TAKE ONE TABLET BY MOUTH EVERY MORNING [...] cations:Type 2 diabetes, HbA1C goal < 8% ([facility]) Inject 3 mg under the skin once [...] the morning. 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 PMR (polymyalgia rheumatica) 01/10/2011 longterm current use of systemic steroids 01/10 longterm current use of anticoagulant therapy 0 11/27/2010 [...] as of this encounter (statuses as of 07/27/2024) Resolved Problems Problem Noted Date Diagnosed Date [...] as of this encounter (statuses as of 07/27/2024) Immunizations Name Administration Dates Next Due COVID-19 [...] 8:00 AM EDT Anticoagulation Family Practice 65 [facility] [address] [place] [id number] College, Pharmacist [address] [place] [address] 08/08/2024 8:00 AM EDT Office Visit Ophthalmology, [facility] [address] [place] [address] Brenden Ellis, DO [address] [place] [address] 08/30/2024 8:40 AM EST Office Visit Rheumatology [place] [id number] [facility] [place] [address] Isiah Perez MD [facility] [place] [address] 11/15/2024 8:00 AM EST Office Visit Family Practice 65 [facility] [address] [facility] [address] Artemio Truong, DO 293 [facility] [address] Health Maintenance Due Date Last Done Comments [...] D LEVEL ONCE IN A LIFETIME-USE SMARTSET# [id number] Completed 11/26/2021, 08/09/2021, 09/02/2019, Additional history exists [...] filedocumented as of this encounter Care Teams Liability Claims Adjuster Relationship Specialty Start Date End Date Artemio Truong DO [address] [place] [address] PCP - General Internal Medicine 04/20/24 documented as of this encounter
--- OUTSIDE RECORDS SUMMARY | 2024-11-06 08:42 | External Medical Summary ---
Author Name Unknown Address Unknown Organization K01:[facility] [place] [address] [place] [address] Laboratory Report Ordering Provider Test Date Status JANEL GARNER 07/12/2024 08:47:17 Final Normal: <30 mg/g creatinine< br/>High: 30-300 mg/g creatinine
Very High: >300 mg/g creatinine
Nephrotic: >2200 mg/g creatinine Observation Date Value Abnormality Reference (Units ) Status Albumin, Urine 07/12/2024 08:47:17 2.00 (mg/dL) Final Creatinine, Urine 07/12/2024 08:47:17 56 (mg/dL) Final Albumin/Creatinine [Mass Ratio] in Urine 07/12/2024 08:47:17 36 Above high normal <30 (mg/g Creat) Final Performing Location [facility] [place] [address] [place] [address]
--- OUTSIDE RECORDS SUMMARY | 2024-11-06 08:42 | External Medical Summary ---
Author Name Unknown Address Unknown Organization : Laboratory Report Ordering Provider Test Date Status ROBSON GARDNER 06/24/2024 08:19:46 Final Therapeutic ranges for non-o perative patients:
Prophylaxsis/treatment of DVT: (Range:2.0-3.0)
Treatment of pulmonary embolism:(Range:2.0-3.0)
Prevention of systemic embolism from:
-tissue heart valves
-acute myocardial infarction
-valvular heart disease
-atrial fibrillation
(Range: 2.0-3.0)
Mechanical prosthetic valves: (Range: 2.5-3.5) Observation Date Value Abnormality Reference (Units ) Status INR in Capillary blood by Coagulation assay 06/24/2024 08:19:46 2.3 (INR) Final Performing Location
--- OUTSIDE RECORDS SUMMARY | 2024-11-06 08:43 | External Medical Summary ---
Author Name Unknown Address Unknown Organization : Laboratory Report Ordering Provider Test Date Status ROBSON GARDNER 06/02/2024 08:08:59 Final Therapeutic ranges for non-o perative patients:
Prophylaxsis/treatment of DVT: (Range:2.0-3.0)
Treatment of pulmonary embolism:(Range:2.0-3.0)
Prevention of systemic embolism from:
-tissue heart valves
-acute myocardial infarction
-valvular heart disease
-atrial fibrillation
(Range: 2.0-3.0)
Mechanical prosthetic valves: (Range: 2.5-3.5) Observation Date Value Abnormality Reference (Units ) Status INR in Capillary blood by Coagulation assay 06/02/2024 08:08:59 1.9 (INR) Final Performing Location
--- OUTSIDE RECORDS SUMMARY | 2024-11-06 08:43 | External Medical Summary | Summary of Care ---
Author Name Unknown Organization [facility] Address [address] [place] [address] Phone [phone] Care Team Providers Care Marketing Analytics Manager Name Role Phone Artemio Truong DO Primary Care Provider [phone] Reason for Visit * Reason Comments Dosage Adjustment In Person (Anticoag Cl inic) Encounter Details Date Type Department Care Team (Late st Contact Info) Description 06/02/2024 8:00 AM EDT Anticoagulation Family Practice 65 [facility] 293 [place] [address] College, Pharmacist [address] [address] Anticoagulation management encounter*; Permanent atrial fibrillation (HCC); longterm current use of anticoagulant therapy Allergies No known active allergiesdocumented as of this encounter (statuses as of 06/02/2024) Medications Medication Sig Dispensed Refills Start Date End Date Status Blood Glucose Monitoring Suppl (IP StreetUCH ULTRA 2) w/Device KITIndications:Ty pe 2 diabetes mellitus with hemoglobin A1c goal of less than 7.0% ([facility]) 12/15/2018 Active acetaminophen (TYLENOL) 500 MG Tablet Take 1-2 Tablets by mouth every 6 hours as needed for Pain. Active Vitamin D3 50 MCG (1999) Oral Capsule Take 1 Capsule by mouth every evening. 30 Cap 5 08/11/2021 Active OneTouch Ultra Blue In Vitro Strip (Glucose Blood)Indications :Type 2 diabetes mellitus with hemoglobin A1c goal of less than 7.0% ([facility]) Use to test once daily. DX:E11.9 100 Strip 3 07/28/2022 Active OneTouch Delica Lancets 33G Use to test once daily. DX: E11.9 100 Each 3 07/28/2022 Active Atorvastatin Calcium 20 MG Oral Tablet (Lipitor) Take 1 Tablet by mouth in the morning. 100 Tablet 3 06/23/2023 Active DULoxetine HCl 20 MG Oral Capsule Delayed Release Particles (Cymbalta)Indicat ions:Polymyalgia rheumatica ([facility]) TAKE ONE CAPSULE BY MOUTH EVERY DAY. DO NOT CUT, CRUSH, OR CHEW. 100 Capsule 2 08/21/2023 4 Active predniSONE 5 MG Oral Tablet (Deltasone)Indica tions:PMR (polymyalgia rheumatica) ([facility]) TAKE ONE TABLET BY MOUTH EVERY MORNING & ONE TABLET BEFORE BEDTIME 200 Tablet 2 10/07/2023 4 Active Warfarin Sodium 5 MG Oral Tablet (Coumadin)Indicat ions:Chronic atrial fibrillation ([facility]) Take 1 tablet by mouth once daily or as directed by anticoagulation clinic 90 Tablet 3 10/21/2023 Active Vitamin B 12 500 MCG Oral TabletIndications :Vitamin B 12 deficiency Take 1 Tablet by mouth daily. 11/04/2023 Active metFORMIN HCl 1000 MG Oral Tablet (Glucophage)Indic ations:Type 2 diabetes mellitus with hemoglobin A1c goal of less than 7.0% ([facility]) TAKE ONE TABLET BY MOUTH TWICE [...] for 28 days. 2 mL 04/22/2024 Active documented as of this encounter (statuses as of 06/02/2024) Active Problems Problem Noted Date Diagnosed Date [...] as of this encounter (statuses as of 06/02/2024) Resolved Problems Problem Noted Date Diagnosed Date [...] as of this encounter (statuses as of 06/02/2024) Immunizations Name Administration Dates Next Due COVID-19 [...] lent, No Preserve, IM 07/27/2016,08/20/2015 Seasonal Influenza, Split, I IV3, With Preserve, Inj 08/21/2014,07/14/2013,10/07/2012,07/01,07/19/2010,09/03/2009,08/15/2008 ,08/19/2007,09/11/2006 Seasonal Influenza, Trivalen t, Adjuvanted, 65+ yrs 09/02/2019 TDAP (age 10 and older)(Boostrix) 07/23/2022,06/2012 [...] of this encounter Progress Notes * Cecy Fallon, [facility] - 06/02/2024 8:07 AM EDT Images from the original note were not included. Medication Therapy Disease Management - Anticoagulation Patient: Mitchel Mcpherson | : 1945 Subjective Patient-Reported Symptoms: Patient Findings Negatives: Signs/symptoms of thrombosis, Signs/symptoms of bleeding, Change in health, Change in alcohol use, Change in activity, Upcoming invasive procedure, Missed doses, Extra doses, Change in medications, Change in diet/appetite, Bruising Objective Current Warfarin Dose As of 06/02/2024 Warfarin maintenance plan: 2.5 mg (5 mg x 0.5) every Mon, Wed, Fri; 5 mg (5 mg x 1) all other days INR Result As of 06/02/2024 INR goal: 2.0-3.0 INR used for dosin.9 (06/02/2024) Assessment & Plan Warfarin Plan As of 06/02/2024 Full warfarin instructions: 2.5 mg every Mon, Wed, Fri; 5 mg all other days No change documented: Cecy Fallon RPh Next INR check: 06/23/2024 Repeat PT/INR in 3 week(s) Weekly dose: not changed Additional Dosing Information: Description (Takes in AM) I spent a total of 10-19 minutes (exact time 11 mins) on the date of service in preparation, delivery, and documentation of the care provided to Mitchel Mcpherson excluding any time spent in the performance of separately billed services or time spent by another provider/QHP. Cecy Amaya [facility] Clinical Pharmacist 06/02/2024, 8:09 AM documented in this encounter Plan of Treatment Upcoming Encounters Date Type Department Care Team (Late st Contact Info) Description 06/24/2024 8:10 AM EDT Anticoagulation Family Practice 65 [facility] 293 [facility] [address] College, Pharmacist 65 [address] [address] 07/12/2024 8:00 AM EDT Office Visit Family Practice 65 [facility] 293 [facility] [address] Artemio Truong, DO [address] [place] [address] 08/08/2024 8:00 AM EDT Office Visit Ophthalmology, [facility] [address] [place] [address] Brenden Ellis, DO [address] [place] [address] 08/30/2024 8:40 AM EST Office Visit Rheumatology [place] [address] [employer] [place] [address] Isiah Perez MD [facility] [employer] [place] [address] Health Maintenance Due Date Last Done Comments Adult Wellness Visit 03/31/2015 03/31/2014 COVID-19 Vaccine ( season) 2023 08/03/2023, 08/05/2022, 03/08/2022, Additional history exists Diabetic Foot Exam 04/29/2024 04/29/2023, 1 , 07/23/2021, Additional history exists Influenza Vaccine (FLU shot) [...] 08/10/2025 08/10/2023, 07/14, 08/05/2021, Additional history exists DTaP,Tdap,and Td Vaccines (3 - Td or Tdap) 07/23/2032 07/23/2022, 04/19/2012, 01/29/2001 Pneumococcal Vaccine: 65+ Years Completed 03/03/2016, 01/03/2009, 09/01/2003 VITAMIN D LEVEL ONCE IN A LIFETIME-USE SMARTSET# [id number] Completed 11/26/2021, 08/09/2021, 09/02/2019, Additional history exists [...] Comments INR FINGERSTICK, POINT OF CARE STAT 06/02/2024 8:08 AM EDT Permanent atrial fibrillation (HCC) Anticoagulation management encounter watermaster current use of anticoagulant therapy documented in this encounter Results * INR FINGERSTICK, POINT OF CARE (06/02/2024 8:08 AM EDT) Fingerstick INR 1.9 INR 8:16 AM EDT [facility] [employer] 56-21 Blood 06/02/2024 8:08 AM EDT 06/02/2024 8:16 AM EDT [facility] 56-21 - 06/02/2024 8:16 AM EDT Therapeutic ranges for non-operative patients: Prophylaxsis/treatment of DVT: (Range:2.0-3.0) Treatment of pulmonary embolism:(Range:2.0-3.0) Prevention of systemic embolism from: -tissue heart valves -acute myocardial infarction -valvular heart disease -atrial fibrillation (Range: 2.0-3.0) Mechanical prosthetic valves: (Range: 2.5-3.5) Cecy Roche [facility] LAB PO INT OF CARE TEST DOCKED DEVICE UNSOLICITED RESULTS [facility] 56-21 [address] [place] [address] documented in this encounter Visit Diagnoses Diagnosis Anticoagulation management encounter- Primary Encounter for therapeutic drug monitoring Permanent atrial fibrillation (HCC) Atrial fibrillation longterm current use of anticoagulant therapy documented in this encounter Care Teams Marketing Analytics Manager Relationship Specialty Start Date End Date Artemio Truong DO 293 [place] [address] PCP - General Internal Medicine 04/20/24 documented as of this encounter"
[2024-11-06] MEDS: ACETAMINOPHEN 1,000 MG/100 ML VIAL IV STA ×2 (09:03→18:18)
[2024-11-06] MEDS: ONDANSETRON INJ 2 MG/ML 2 ML VIAL IV STA (09:03)
[2024-11-06] MEDS: SODIUM CHLORIDE 0.9% 1,000 ML IV SCH (09:04)
[2024-11-06] MEDS: PIPERACILLIN/TAZOBACTAM 4.5 GM/100 ML BAG IV STA (09:06)
[2024-11-06 09:07] LABS: iSTAT Arterial Blood Gas HCO3 21 meg/L (19-24); iSTAT Arterial Blood Gas pCO2 35 mmHg (35-46); iSTAT Arterial Blood Gas pH 7.39 (7.35-7.45); iSTAT Arterial Blood Gas pO2 75 mmHg (80-95); iSTAT Carbon Dioxide 22 mmol/L (24-31); iSTAT Hematocrit 41 % (42-52); iSTAT Hemoglobin 13.9 g/dl (14.0-18.0); iSTAT Potassium 3.6 mmol/L (3.3-5.0); iSTAT Sample Type Arterial; iSTAT Sodium 137 mmol/L (135-144)
[2024-11-06 09:09] LABS: Basophils # (auto) 0.03 K/uL (0.00-0.20); Basophils % (auto) 0.3 %; Eosinophils # (auto) 0.01 K/uL (0.00-0.50); Eosinophils % (auto) 0.1 %; Hematocrit (blood only) 41.9 % (42.0-52.0); Hemoglobin 13.5 g/dl (14.0-18.0); Immature Granulocytes # (auto) 0.08 K/uL (0.01-0.20); Immature Granulocytes % (auto) 0.7 %; Lymphocytes # (auto) 1.53 K/uL (1.20-3.40); Lymphocytes % (auto) 13.3 %; Mean Corpuscular Hemoglobin 28.9 pg (25.0-34.0); Mean Corpuscular Hgb Conc 32.2 g/dL (32.0-36.0); Mean Corpuscular Volume 89.7 fL (80.0-100.0); Mean Platelet Volume 11.2 fL (9.4-12.4); Monocytes # (auto) 1.09 K/uL (0.11-0.59); Monocytes % (auto) 9.4 %; Neutrophils % (auto) 76.2 %; Platelet Count 236 K/uL (130-400); RDW Coefficient of Variation 14.1 % (11.5-14.5); RDW Standard Deviation 45.9 fL (36.4-46.3); Red Blood Count 4.67 M/uL (4.70-6.10); White Blood Count 11.54 K/ul (4.8-10.8)
[2024-11-06 09:14] LABS: iSTAT Creatinine 1.3 mg/dl (0.6-1.3); iSTAT Hemoglobin 14.6 g/dl (14.0-18.0); iSTAT Ionized Calcium 1.09 mmol/l (1.12-1.32); iSTAT Potassium 3.5 mmol/L (3.3-5.0)
[2024-11-06] MEDS ORDERED: VANCOMYCIN CONSULT ACTIVE PRN (09:15)
--- NOTE | 2024-11-06 09:21 | XRay Report ---
XR chest 1V portable CLINICAL HISTORY: Sepsis COMPARISON STUDY: 12/30/2022 FINDINGS: Stable mild cardiomegaly without pulmonary vascular congestion. No effusion, consolidation, or pneumothorax. IMPRESSION: No acute findings. ACT 112: Negative or not required by law. Electronically signed by: Romario Henning M.D. 11/06/2024 9:19 AM
[2024-11-06 09:26] LABS: Albumin Level 4.2 gm/dl (3.4-5.0); BUN Creatinine Ratio 17.4 (10-20); Bilirubin Direct 0.1 mg/dl (0-0.2); Bilirubin,Total 0.6 mg/dl (0.2-1.0); Calcium 9.3 mg/dl (8.6-10.3); Creatinine Clr Calc Pharmacy 46.9 ml/min; Magnesium 1.4 mg/dl (1.7-2.4); Potassium 3.6 mmol/L (3.5-5.1); Total Protein 7.2 gm/dl (6.0-8.3)
[2024-11-06 09:32] LABS: Troponin I High Sensitivity 32.4 pg/ml (0-20)
[2024-11-06 09:43] LABS: INR 1.9 (0.9-1.1); Partial Thromboplastin Time 28 Seconds (21-31); Prothrombin Time 19.2 Seconds (9.0-12.0)
--- NOTE | 2024-11-06 09:54 | Emergency Department Note ---
Impression & Plan Sepsis, Acute respiratory failure with hypoxia, AMS (altered mental status), Vomiting, Aspiration into airway, Influenza ED Provider Note NAME: AROLDO SILVERMAN AGE: 78 SEX: Male INFORMANT: Patient and family ED PROVIDER(S): Wilbur Barrios MD CHIEF COMPLAINT: Respiratory problems PLAN: Disposition: Admitted Outpatient prescription management: none Referral: None MEDICAL DECISION MAKING: Patient presented with respiratory distress. He was requiring supplemental oxygen. Patient had vomited and there was concerns for aspiration. Patient did require suctioning by respiratory at 3 different times throughout his ED stay. He had become hypotensive and was given multiple boluses of normal saline and frequently reassessed. Patient's blood pressure did improve but fluctuated. Patient had an elevated lactic acidosis. Was concerning for sepsis. Chest x- ray did raise some concerns for pneumonia however his old x-ray was not significantly different. CT scan of the head, chest abdomen and pelvis was performed. Patient did receive broad-spectrum antibiotics with Zosyn and vancomycin. Patient had an unremarkable head CT except for possible left-sided sinus disease. Patient had pneumonia on chest CT scan. The patient had unremarkable abdomen pelvis CT. Patient was found to be influenza positive on [employer] testing. Patient did improve and was able to take oral Tamiflu. The patient was found to be hypomagnesemic as well. He was given IV magnesium. Discussed further management in the hospital with the patient's family. They were in agreement. [facility] Case was discussed and diagnostics were reviewed. Patient was evaluated in the ER admitted for further management. Repeat lactate was improving. Patient mental status was improving on reassessment. Care/management discussed with: manager integrated, respiratory therapy, pharmacy. Level of care consideration(s): After review of the information above and other included data, I feel the patient requires escalation of care to admission Triage Nursing notes: Reviewed and agree with them. Vital Signs: reviewed and remarkable for fever, hypoxia, hypotension. Tachycardia noted as well. Additional History obtained from: Patient's regarding his medical illness history. Chronic Medical/Social Conditions affecting care: A-fib and anticoagulation Prior/ Outside/ External records reviewed: none Differential Diagnosis: Sepsis, UTI, pneumonia, metabolic, electrolyte abnormalities, cardiac sources, intracerebral event, toxicologic, neurologic, as well as other pathologies. Diagnostics, independently interpreted by me: ECG: Twelve-lead ECG reveals A-fib with RVR at [address] elevation or depression. Nonspecific ST. Cardiac Monitoring: Cardiac monitoring ordered by me: The patient was placed on continuous cardiac monitoring and observed. It revealed atrial fibrillation at 105 bpm. Medical decision rules: none Imaging studies: Chest x-ray and CT scans as above. HPI: 78 year old Male arrives for evaluation of respiratory problems. This started yesterday and is described as difficulty breathing. Patient had altered mental status. is present and helps with the history. He seemed to become more confused last night. He had fever. Patient vomited overnight. EMS was summoned. He was found to be hypoxic. He did respond to supplemental oxygen. He was found to be in a rapid A-fib. He does have a history of this and is anticoagulated. notes no sick contacts. History is limited secondary to patient's medical acuity and mental status. PAST MEDICAL HISTORY: A-fib,, anticoagulated PAST SURGICAL HISTORY: See Below, SOCIAL HISTORY: See Below, HOME MEDICATIONS: See Below ALLERGIES: See Below VITALS: See Below PHYSICAL EXAMINATION: GENERAL: Awake, but lethargic, ill appearing, in mild distress HEAD: Normocephalic, atraumatic. No edema. EYES: Normal conjunctiva. Sclera non-icteric. NOSE: Mild congestion. OROPHARYNX: Lips, tongue, and mucosa unremarkable except being dry. No erythema or exudate. Vomitus noted on the patient's.. NECK: Supple. No nuchal rigidity. FROM. No adenopathy. RESPIRATORY: Coarse rhonchi bilaterally. No wheezes. Breath sounds equal. Hi. CARDIAC: Tachycardic rate. Irregular rhythm. Systolic murmur. ABDOMEN: Soft, non distended. No obvious tenderness to palpation. NEURO: Altered sensorium. Patient will answer basic yes and no questions. Responds to voice. Moving arms and legs but not following specific commands. SKIN: No rash or jaundice noted. MUSCULOSKELETAL: Atraumatic. No lower extremity edema. PROCEDURES: none CRITICAL CARE: I have personally spent 35 minutes of critical care time in the direct management of this patient. This includes bedside care, interpretation of diagnostic studies, and testing, discussion with consultants, patient, and family members, and other required patient management activities. These minutes are in excess of all separately billable procedures. OBSERVATION NOTE: none Past Med/Surg History Problem List (Updated 11/06/24 @ 14:21 by Wilbur Barrios MD) Influenza (Acute) Aspiration into airway (Acute) Vomiting (Acute) AMS (altered mental status) (Acute) Sepsis (Acute) Acute respiratory failure with hypoxia (Acute) Human metapneumovirus (hMPV) pneumonia (Acute) Pulmonary edema (Acute) Atrial fibrillation with rapid ventricular response (Acute) Scrotal swelling Tight foreskin HTN, goal below 140/90 Steroid-induced osteoporosis Permanent atrial fibrillation ARF (acute renal failure) (Acute) Acute kidney injury (Acute) Dehydration (Acute) Dehydration (Acute) Gastroenteritis (Acute) Nausea (Acute) Weakness (Acute) Encounter for pre-operative examination Medical History Atrial fibrillation follows with lonnie Olmedo cardioversion. managed with medications. Chronic steroid use Diabetes mellitus, type 2 NIDDM Hyperlipidemia Hypertension On anticoagulant therapy Osteoarthritis Polymyalgia rheumatica takes prednisone BID to manage. Surgical History H/O eye surgery bilateral tear duct procedures to place a "drain" History of arthroscopy of left shoulder History of cataract surgery History of colonoscopy S/P left knee arthroscopy Family History Other No family history of adverse response to anesthesia Social History Smoking Status: Former smoker Second Hand Exposure: No; Do You Dip or Chew Tobacco: No; Hx Alcohol Use: No Hx Substance Use: No Preferred Language: Danish Communication Ability: Effective Check Weigher Required: No Beliefs That Will Affect Care: None marital status: Current Living Situation: Spouse Feels Safe at Home: Yes Assistive Devices: None Allergies Allergies Allergy/AdvReac Type Severity Reaction Status Date / Time oxycodone Allergy Intermediate WHEEZING Verified 11/06/24 12:15 Home Meds Home Medications Medication Instructions Recorded Confirmed alendronate 70 mg tablet (Fosamax) 70 mg PO WK 12/25/21 11/06/24 atorvastatin 20 mg tablet (Lipitor) 20 mg PO PM 12/25/21 11/06/24 cholecalciferol (vitamin D3) 50 50 mcg PO QAM 12/25/21 11/06/24 mcg (2,000 unit) tablet (Vitamin D3) duloxetine 20 mg capsule,delayed 20 mg PO QPM 12/25/21 11/06/24 release glipizide 10 mg tablet See Rx Instructions .Route .COMPLEX 12/25/21 11/06/24 metformin 1,000 mg tablet 1,000 mg PO BID 12/25/21 11/06/24 prednisone 5 mg tablet 5 mg PO BID 12/25/21 11/06/24 warfarin 5 mg tablet 5 mg PO QAM 12/25/21 11/06/24 acetaminophen 500 mg tablet 500 - 1,000 mg PO Q6H PRN Pain 12/30/22 11/06/24 (Tylenol Extra Strength) dulaglutide 4.5 mg/0.5 mL 4.5 mg subcut WK 11/06/24 11/06/24 subcutaneous pen injector (Trulicity) Previous Rx's Medication Instructions Recorded enalapril maleate 10 mg tablet 10 mg PO QAM #30 tabs 01/03/23 metoprolol tartrate 50 mg tablet 50 mg PO BID #60 tabs 01/03/23 Results & Data (ED) Vital Signs Vital Signs - 24 hr 11/06/24 08:49 11/06/24 08:49 11/06/24 08:49 Temperature 39.5 C H Temperature Source Axillary Pulse Rate Pulse Rate [Right Finger] 126 H Pulse Rate from SpO2 Sensor Pulse Rhythm [Right Finger] Pulse Strength [Right Finger] Respiratory Rate 26 H Respiratory Effort / Characteristics Labored Accessory Muscle Use Labored Short of Breath Respiratory Depth Normal Respiratory Pattern Tachypnea Tachypnea Blood Pressure Blood Pressure [Left Arm] 168/77 H Blood Pressure Mean Blood Pressure Mean [Left Arm] 107 Blood Pressure Position [Left Arm] Pulse Oximetry 94 Oxygen Delivery Method Oxymask Oxymask Oxygen Flow Rate 13 13 Sepsis Recent Fever Within 48 Hours Yes Sepsis New/Unexplained Change in Mental Status Yes Sepsis Action Taken by Nursing No Action Required 11/06/24 08:56 11/06/24 09:39 11/06/24 10:00 Temperature 38.3 C H Temperature Source Axillary Pulse Rate 123 H 108 H Pulse Rate [Right Finger] Pulse Rate from SpO2 Sensor 113 H Pulse Rhythm [Right Finger] Pulse Strength [Right Finger] Respiratory Rate 28 H Respiratory Effort / Characteristics Respiratory Depth Respiratory Pattern Blood Pressure 125/66 Blood Pressure [Left Arm] Blood Pressure Mean 85 Blood Pressure Mean [Left Arm] Blood Pressure Position [Left Arm] Pulse Oximetry 96 Oxygen Delivery Method Oxygen Flow Rate Sepsis Recent Fever Within 48 Hours Sepsis New/Unexplained Change in Mental Status Sepsis Action Taken by Nursing 11/06/24 10:05 11/06/24 10:18 11/06/24 10:30 Temperature Temperature Source Pulse Rate 114 H 108 H Pulse Rate [Right Finger] Pulse Rate from SpO2 Sensor 111 H Pulse Rhythm [Right Finger] Pulse Strength [Right Finger] Respiratory Rate 34 H Respiratory Effort / Characteristics Respiratory Depth Respiratory Pattern Blood Pressure 84/49 L 70/46 L 87/56 L Blood Pressure [Left Arm] Blood Pressure Mean 60 54 64 Blood Pressure Mean [Left Arm] Blood Pressure Position [Left Arm] Pulse Oximetry 99 Oxygen Delivery Method Oxygen Flow Rate Sepsis Recent Fever Within 48 Hours Sepsis New/Unexplained Change in Mental Status Sepsis Action Taken by Nursing 11/06/24 10:45 11/06/24 11:00 11/06/24 11:00 Temperature Temperature Source Pulse Rate 107 H 103 H Pulse Rate [Right Finger] Pulse Rate from SpO2 Sensor 103 H 101 H Pulse Rhythm [Right Finger] Pulse Strength [Right Finger] Respiratory Rate 26 H 29 H Respiratory Effort / Characteristics Respiratory Depth Respiratory Pattern Blood Pressure 93/64 L 96/61 L 96/61 L Blood Pressure [Left Arm] Blood Pressure Mean 77 72 77 Blood Pressure Mean [Left Arm] Blood Pressure Position [Left Arm] Pulse Oximetry 98 99 Oxygen Delivery Method Oxygen Flow Rate Sepsis Recent Fever Within 48 Hours Sepsis New/Unexplained Change in Mental Status Sepsis Action Taken by Nursing 11/06/24 11:35 11/06/24 12:00 11/06/24 12:00 Temperature Temperature Source Pulse Rate 103 H 108 H Pulse Rate [Right Finger] 105 H Pulse Rate from SpO2 Sensor 101 H 109 H Pulse Rhythm [Right Finger] Regular Pulse Strength [Right Finger] Normal Respiratory Rate 29 H 24 24 Respiratory Effort / Characteristics Non-Labored Respiratory Depth Normal Respiratory Pattern Regular Blood Pressure 78/62 L 104/62 Blood Pressure [Left Arm] 96/64 L Blood Pressure Mean 67 86 Blood Pressure Mean [Left Arm] 74 Blood Pressure Position [Left Arm] Lying Pulse Oximetry 99 100 96 Oxygen Delivery Method Oxymask Oxygen Flow Rate 13 Sepsis Recent Fever Within 48 Hours Sepsis New/Unexplained Change in Mental Status Sepsis Action Taken by Nursing 11/06/24 12:19 11/06/24 12:19 11/06/24 12:30 Temperature Temperature Source Pulse Rate Pulse Rate [Right Finger] 101 H Pulse Rate from SpO2 Sensor Pulse Rhythm [Right Finger] Regular Pulse Strength [Right Finger] Normal Respiratory Rate 24 Respiratory Effort / Characteristics Non-Labored Respiratory Depth Normal Respiratory Pattern Regular Blood Pressure Blood Pressure [Left Arm] 98/54 L Blood Pressure Mean Blood Pressure Mean [Left Arm] 68 Blood Pressure Position [Left Arm] Lying Pulse Oximetry 96 98 Oxygen Delivery Method Oxymask Oxymask Oxymask Oxygen Flow Rate 13 13 13 Sepsis Recent Fever Within 48 Hours Sepsis New/Unexplained Change in Mental Status Sepsis Action Taken by Nursing Laboratory Data 11/06/24 08:50 11/06/24 08:50 Lab Results 11/06/24 11/06/24 11/06/24 Range/Units 08:40 08:50 08:53 WBC 11.54 H (4.8-10.8) K/ul RBC 4.67 L (4.70-6.10) M/uL Hgb 13.5 L (14.0-18.0) g/dl POC Hgb 13.9 L (14.0-18.0) g/dl Hct 41.9 L (42.0-52.0) % POC Hct 41 L (42-52) % MCV 89.7 (80.0-100.0) fL MCH 28.9 (25.0-34.0) pg MCHC 32.2 (32.0-36.0) g/dL RDW Std Deviation 45.9 (36.4-46.3) fL RDW Coeff of Roverto 14.1 (11.5-14.5) % Plt Count 236 (130-400) K/uL MPV 11.2 (9.4-12.4) fL Immature Gran % (Auto) 0.7 % Neut % (Auto) 76.2 % Lymph % (Auto) 13.3 % [place] % (Auto) 9.4 % Eos % (Auto) 0.1 % Baso % (Auto) 0.3 % Neut # (Auto) 8.80 H (1.40-6.50) K/uL Lymph # (Auto) 1.53 (1.20-3.40) K/uL [place] # (Auto) 1.09 H (0.11-0.59) K/uL Eos # (Auto) 0.01 (0.00-0.50) K/uL Baso # (Auto) 0.03 (0.00-0.20) K/uL Immature Gran # (Auto) 0.08 (0.01-0.20) K/uL PT 19.2 H (9.0-12.0) Seconds INR 1.9 H (0.9-1.1) APTT 28 (21-31) Seconds PTT Ratio 1.0 Specimen Type Arterial POC pH 7.39 (7.35-7.45) POC pCO2 35 (35-46) mmHg POC pO2 75 L (80-95) mmHg POC HCO3 21 (19-24) merline/L POC Total CO2 22 L (24-31) mmol/L POC Base Excess -4.0 (-9-1.8) merline/L POC ABG O2 Sat 95.0 (90-95) % POC Sodium 137 (135-144) mmol/L Sodium 136 (136-145) mmol/L POC Potassium 3.6 (3.3-5.0) mmol/L Potassium 3.6 (3.5-5.1) mmol/L POC Chloride (101-112) mmol/L Chloride 98 (98-107) mmol/L Carbon Dioxide 24 (21-32) mmol/L Anion Gap 14 H (3-11) POC Anion Gap (16-25) mmol/L POC BUN (7-18) mg/dl BUN 24 H (6-23) mg/dl Creatinine 1.38 (0.6-1.4) mg/dl POC Creatinine (0.6-1.3) mg/dl Est Cr Clr Drug Dosing 46.9 ml/min eGFR 51.69 BUN/Creatinine Ratio 17.4 (10-20) Glucose 298 H (70-99(Fasting)) mg/dl POC Glucose (other) (70-99) mg/dl Lactate 5.6 H* (0.4-2.0) mmol/L Calcium 9.3 (8.6-10.3) mg/dl POC Ioniz Calcium Lisa (1.12-1.32) mmol/l Magnesium 1.4 L (1.7-2.4) mg/dl Total Bilirubin 0.6 (0.2-1.0) mg/dl Direct Bilirubin 0.1 (0-0.2) mg/dl AST 18 (13-39) U/L ALT 19 (7-52) U/L Alkaline Phosphatase 38 (34-104) U/L Troponin I High Sens 32.4 H (0-20) pg/ml Total Protein 7.2 (6.0-8.3) gm/dl Albumin 4.2 (3.4-5.0) gm/dl Procalcitonin 0.84 H (0-0.5) ng/ml Urine Color Urine Appearance (Clear) Urine pH (4.5-7.5) Ur Specific [place] (1.000-1.030) Urine Protein (Negative) Urine Glucose (UA) (Negative) Urine Ketones (Negative) Urine Blood (Negative) Urine Nitrite (Negative) Urine Bilirubin (Negative) Urine Urobilinogen (Negative) Ur Leukocyte Esterase (Negative) Urine WBC (Auto) (0-5) /hpf Urine RBC (Auto) (0-2) /hpf U Hyaline Cast (Auto) (0-2) /lpf U Epithel Cells (Auto) (0-2) /hpf Urine Bacteria (Auto) (None Seen) Nasal Influ A H1 2009 PCR DETECTED A (NotDetected) Adenovirus (PCR) Not Detected (NotDetected) B. pertussis DNA (PCR) Not Detected (NotDetected) B.parapertussis DNA PCR Not Detected (NotDetected) C. pneumoniae DNA (PCR) Not Detected (NotDetected) Coronavirus OC43 (PCR) Not Detected (NotDetected) Coronavirus HKU1 (PCR) Not Detected (NotDetected) Coronavirus 229E (PCR) Not Detected (NotDetected) SARS-CoV-2 (PCR) Not Detected (NotDetected) Coronavirus NL63 (PCR) Not Detected (NotDetected) Human Metapneumovir PCR Not Detected (NotDetected) Influenza Type B (PCR) Not Detected (NotDetected) M. pneumoniae (PCR) Not Detected (NotDetected) Parainfluenza 1 (PCR) Not Detected (NotDetected) Parainfluenza 2 (PCR) Not Detected (NotDetected) Parainfluenza 3 (PCR) Not Detected (NotDetected) Parainfluenza 4 (PCR) Not Detected (NotDetected) RSV (PCR) Not Detected (NotDetected) Entero/Rhino (PCR) Not Detected (NotDetected) 11/06/24 11/06/24 11/06/24 Range/Units 09:00 10:30 11:35 WBC (4.8-10.8) K/ul RBC (4.70-6.10) M/uL Hgb (14.0-18.0) g/dl POC Hgb 14.6 (14.0-18.0) g/dl Hct (42.0-52.0) % POC Hct 43 (42-52) % MCV (80.0-100.0) fL MCH (25.0-34.0) pg MCHC (32.0-36.0) g/dL RDW Std Deviation (36.4-46.3) fL RDW Coeff of Roverto (11.5-14.5) % Plt Count (130-400) K/uL MPV (9.4-12.4) fL Immature Gran % (Auto) % Neut % (Auto) % Lymph % (Auto) % [place] % (Auto) % Eos % (Auto) % Baso % (Auto) % Neut # (Auto) (1.40-6.50) K/uL Lymph # (Auto) (1.20-3.40) K/uL [place] # (Auto) (0.11-0.59) K/uL Eos # (Auto) (0.00-0.50) K/uL Baso # (Auto) (0.00-0.20) K/uL Immature Gran # (Auto) (0.01-0.20) K/uL PT (9.0-12.0) Seconds INR (0.9-1.1) APTT (21-31) Seconds PTT Ratio Specimen Type POC pH (7.35-7.45) POC pCO2 (35-46) mmHg POC pO2 (80-95) mmHg POC HCO3 (19-24) merline/L POC Total CO2 23 L (24-31) mmol/L POC Base Excess (-9-1.8) merline/L POC ABG O2 Sat (90-95) % POC Sodium 137 (135-144) mmol/L Sodium (136-145) mmol/L POC Potassium 3.5 (3.3-5.0) mmol/L Potassium (3.5-5.1) mmol/L POC Chloride 100 L (101-112) mmol/L Chloride (98-107) mmol/L Carbon Dioxide (21-32) mmol/L Anion Gap (3-11) POC Anion Gap 17.0 (16-25) mmol/L POC BUN 24 H (7-18) mg/dl BUN (6-23) mg/dl Creatinine (0.6-1.4) mg/dl POC Creatinine 1.3 (0.6-1.3) mg/dl Est Cr Clr Drug Dosing ml/min eGFR BUN/Creatinine Ratio (10-20) Glucose (70-99(Fasting)) mg/dl POC Glucose (other) 295 H (70-99) mg/dl Lactate 4.6 H* (0.4-2.0) mmol/L Calcium (8.6-10.3) mg/dl POC Ioniz Calcium Lisa 1.09 L (1.12-1.32) mmol/l Magnesium (1.7-2.4) mg/dl Total Bilirubin (0.2-1.0) mg/dl Direct Bilirubin (0-0.2) mg/dl AST (13-39) U/L ALT (7-52) U/L Alkaline Phosphatase (34-104) U/L Troponin I High Sens 73.1 H* D (0-20) pg/ml Total Protein (6.0-8.3) gm/dl Albumin (3.4-5.0) gm/dl Procalcitonin (0-0.5) ng/ml Urine Color Yellow Urine Appearance Clear (Clear) Urine pH 6.5 (4.5-7.5) Ur Specific [place] 1.020 (1.000-1.030) Urine Protein 2+ H (Negative) Urine Glucose (UA) 3+ H (Negative) Urine Ketones 1+ H (Negative) Urine Blood Trace H (Negative) Urine Nitrite Negative (Negative) Urine Bilirubin Negative (Negative) Urine Urobilinogen Negative (Negative) Ur Leukocyte Esterase Negative (Negative) Urine WBC (Auto) 0-5 (0-5) /hpf Urine RBC (Auto) 0-2 (0-2) /hpf U Hyaline Cast (Auto) 3-5 H (0-2) /lpf U Epithel Cells (Auto) 0-2 (0-2) /hpf Urine Bacteria (Auto) None Seen (None Seen) Nasal Influ A H1 2008 PCR (NotDetected) Adenovirus (PCR) (NotDetected) B. pertussis DNA (PCR) (NotDetected) B.parapertussis DNA PCR (NotDetected) C. pneumoniae DNA (PCR) (NotDetected) Coronavirus OC43 (PCR) (NotDetected) Coronavirus HKU1 (PCR) (NotDetected) Coronavirus 229E (PCR) (NotDetected) SARS-CoV-2 (PCR) (NotDetected) Coronavirus NL63 (PCR) (NotDetected) Human Metapneumovir PCR (NotDetected) Influenza Type B (PCR) (NotDetected) M. pneumoniae (PCR) (NotDetected) Parainfluenza 1 (PCR) (NotDetected) Parainfluenza 2 (PCR) (NotDetected) Parainfluenza 3 (PCR) (NotDetected) Parainfluenza 4 (PCR) (NotDetected) RSV (PCR) (NotDetected) Entero/Rhino (PCR) (NotDetected) 11/06/24 Range/Units 12:37 WBC (4.8-10.8) K/ul RBC (4.70-6.10) M/uL Hgb (14.0-18.0) g/dl POC Hgb (14.0-18.0) g/dl Hct (42.0-52.0) % POC Hct (42-52) % MCV (80.0-100.0) fL MCH (25.0-34.0) pg MCHC (32.0-36.0) g/dL RDW Std Deviation (36.4-46.3) fL RDW Coeff of Roverto (11.5-14.5) % Plt Count (130-400) K/uL MPV (9.4-12.4) fL Immature Gran % (Auto) % Neut % (Auto) % Lymph % (Auto) % [place] % (Auto) % Eos % (Auto) % Baso % (Auto) % Neut # (Auto) (1.40-6.50) K/uL Lymph # (Auto) (1.20-3.40) K/uL [place] # (Auto) (0.11-0.59) K/uL Eos # (Auto) (0.00-0.50) K/uL Baso # (Auto) (0.00-0.20) K/uL Immature Gran # (Auto) (0.01-0.20) K/uL PT (9.0-12.0) Seconds INR (0.9-1.1) APTT (21-31) Seconds PTT Ratio Specimen Type POC pH (7.35-7.45) POC pCO2 (35-46) mmHg POC pO2 (80-95) mmHg POC HCO3 (19-24) merline/L POC Total CO2 (24-31) mmol/L POC Base Excess (-9-1.8) merline/L POC ABG O2 Sat (90-95) % POC Sodium (135-144) mmol/L Sodium (136-145) mmol/L POC Potassium (3.3-5.0) mmol/L Potassium (3.5-5.1) mmol/L POC Chloride (101-112) mmol/L Chloride (98-107) mmol/L Carbon Dioxide (21-32) mmol/L Anion Gap (3-11) POC Anion Gap (16-25) mmol/L POC BUN (7-18) mg/dl BUN (6-23) mg/dl Creatinine (0.6-1.4) mg/dl POC Creatinine (0.6-1.3) mg/dl Est Cr Clr Drug Dosing ml/min eGFR BUN/Creatinine Ratio (10-20) Glucose (70-99(Fasting)) mg/dl POC Glucose (other) (70-99) mg/dl Lactate 5.1 H* (0.4-2.0) mmol/L Calcium (8.6-10.3) mg/dl POC Ioniz Calcium Lisa (1.12-1.32) mmol/l Magnesium (1.7-2.4) mg/dl Total Bilirubin (0.2-1.0) mg/dl Direct Bilirubin (0-0.2) mg/dl AST (13-39) U/L ALT (7-52) U/L Alkaline Phosphatase (34-104) U/L Troponin I High Sens 78.5 H* (0-20) pg/ml Total Protein (6.0-8.3) gm/dl Albumin (3.4-5.0) gm/dl Procalcitonin (0-0.5) ng/ml Urine Color Urine Appearance (Clear) Urine pH (4.5-7.5) Ur Specific [place] (1.000-1.030) Urine Protein (Negative) Urine Glucose (UA) (Negative) Urine Ketones (Negative) Urine Blood (Negative) Urine Nitrite (Negative) Urine Bilirubin (Negative) Urine Urobilinogen (Negative) Ur Leukocyte Esterase (Negative) Urine WBC (Auto) (0-5) /hpf Urine RBC (Auto) (0-2) /hpf U Hyaline Cast (Auto) (0-2) /lpf U Epithel Cells (Auto) (0-2) /hpf Urine Bacteria (Auto) (None Seen) Nasal Influ A H1 2008 PCR (NotDetected) Adenovirus (PCR) (NotDetected) B. pertussis DNA (PCR) (NotDetected) B.parapertussis DNA PCR (NotDetected) C. pneumoniae DNA (PCR) (NotDetected) Coronavirus OC43 (PCR) (NotDetected) Coronavirus HKU1 (PCR) (NotDetected) Coronavirus 229E (PCR) (NotDetected) SARS-CoV-2 (PCR) (NotDetected) Coronavirus NL63 (PCR) (NotDetected) Human Metapneumovir PCR (NotDetected) Influenza Type B (PCR) (NotDetected) M. pneumoniae (PCR) (NotDetected) Parainfluenza 1 (PCR) (NotDetected) Parainfluenza 2 (PCR) (NotDetected) Parainfluenza 3 (PCR) (NotDetected) Parainfluenza 4 (PCR) (NotDetected) RSV (PCR) (NotDetected) Entero/Rhino (PCR) (NotDetected) Administered Medications Sodium Chloride (Nss) 500 mls @ 150 mls/hr IV .Q3H20M [facility] Stop: 11/06/24 15:49 Last Admin: 11/06/24 13:12 Dose: 150 mls/hr Documented By: GHAZALA Discontinued Medications Sodium Chloride (Nss) 1,000 mls @ 999 mls/hr IV .Q1H1M [facility] Stop: 11/06/24 10:00 Last Infusion: 11/06/24 09:56 Dose: Infused Documented By: Admin: 11/06/24 09:04 Dose: 999 mls/hr Documented By: DAYAN Piperacillin Sod/Tazobactam Sod (Zosyn) 4.5 gm in 100 mls @ 200 mls/hr IV NOW STA Stop: 11/06/24 09:18 Last Infusion: 11/06/24 09:55 Dose: Infused Documented By: Admin: 11/06/24 09:06 Dose: 200 mls/hr Documented By: DAYAN Acetaminophen (Ofirmev) 1,000 mg in 100 mls @ 400 mls/hr IV NOW STA Stop: 11/06/24 09:03 Last Infusion: 11/06/24 09:58 Dose: Infused Documented By: Admin: 11/06/24 09:03 Dose: 400 mls/hr Documented By: DAYAN Vancomycin HCl 2,000 mg/ (Sodium Chloride) 540 mls @ 200 mls/hr IV NOW ONE Stop: 11/06/24 11:56 Last Admin: 11/06/24 09:59 Dose: 200 mls/hr Documented By: Sodium Chloride (Nss) 1,000 mls @ 999 mls/hr IV .Q1H1M ONE Stop: 11/06/24 10:15 Last Infusion: 11/06/24 11:00 Dose: Infused Documented By: Admin: 11/06/24 09:55 Dose: 999 mls/hr Documented By: Magnesium Sulfate/Dextrose (Magnesium Sulfate / D5w) 1 gm in 100 mls @ 50 mls/hr IV Q2H [facility] Stop: 11/06/24 13:29 Last Admin: 11/06/24 11:48 Dose: 50 mls/hr Documented By: Infusion: 11/06/24 11:48 Dose: Infused Documented By: Admin: 11/06/24 09:59 Dose: 50 mls/hr Documented By: Sodium Chloride (Nss) 500 mls @ 999 mls/hr IV .Q31M ONE Stop: 11/06/24 10:59 Last Infusion: 11/06/24 12:03 Dose: Infused Documented By: Admin: 11/06/24 10:35 Dose: 999 mls/hr Documented By: Sodium Chloride (Nss) 500 mls @ 999 mls/hr IV .Q31M ONE Stop: 11/06/24 12:21 Last Infusion: 11/06/24 12:34 Dose: Infused Documented By: Admin: 11/06/24 11:57 Dose: 999 mls/hr Documented By: GHAZALA Metoprolol Tartrate (Metoprolol Tartrate 50 Mg Tab) 50 mg PO ONE ONE Stop: 11/06/24 12:46 Last Admin: 11/06/24 13:12 Dose: 50 mg Documented By: GHAZALA Ondansetron HCl (Ondansetron Inj 2 Mg/Ml 2 Ml Vial) 4 mg IV NOW STA Stop: 11/06/24 08:50 Last Admin: 11/06/24 09:03 Dose: 4 mg Documented By: DAYAN Oseltamivir Phosphate (Oseltamivir Phosphate 75 Mg Cap) 75 mg PO NOW STA; Protocol Stop: 11/06/24 10:53 Last Admin: 11/06/24 11:48 Dose: 75 mg Documented By: GHAZALA Imaging Data Radiologist's Impression: Chest X-Ray 11/06/24 08:49 XR chest 1V portable CLINICAL HISTORY: Sepsis COMPARISON STUDY: 12/30/2022 FINDINGS: Stable mild cardiomegaly without pulmonary vascular congestion. No effusion, consolidation, or pneumothorax. IMPRESSION: No acute findings. ACT 112: Negative or not required by law. Electronically signed by: Romario Henning M.D. 11/06/2024 9:19 AM Abdomen/Pelvis CT 11/06/24 09:[address] WITHOUT CONTRAST CT DOSE: 3859.8 mGy.cm HISTORY: fever, ams, vomiting TECHNIQUE: Multiaxial CT images of the abdomen and pelvis were performed without contrast. A dose lowering technique was utilized adhering to the principles of ALARA. COMPARISON STUDY: 12/30/2022 FINDINGS: ABDOMEN: Liver, gallbladder, spleen, pancreas, and adrenal glands have an unremarkable non-IV contrast appearance. Kidneys show no hydronephrosis or calculi. There are scattered atherosclerotic calcifications. No abdominal aortic aneurysm. Pelvis: Carreno catheter is present and the urinary bladder is empty. Prostate is minimally enlarged. There is moderate retained stool. No bowel inflammation or obstruction. Normal appendix. No free fluid, free air, or abscess. No enlarged adenopathy. Osseous structures: There is moderate lumbar degenerative disc disease. IMPRESSION: No acute findings. ACT 112: Negative or not required by law. The above report was generated using voice recognition software. It may contain grammatical, syntax or spelling errors. Electronically signed by: Romario Henning M.D. 11/06/2024 12:[address] 11/06/24 09:28 CT chest diagnostic wo con CT DOSE: 3859 CLINICAL HISTORY: fever, sob. TECHNIQUE: Multiaxial CT images of the chest were performed without contrast. A dose lowering technique was utilized adhering to the principles of ALARA. COMPARISON STUDY: 03/17/2018 FINDINGS: There is mild motion artifact due to difficulty breath holding. There is bronchial wall thickening consistent with bronchitis. There are scattered patchy groundglass pulmonary opacities most prominent at the right lower lung. There is a small area of patchy consolidation posterior right lung base. Findings are consistent with early pneumonia. There is no pleural effusion or pneumothorax. There is minimal mediastinal adenopathy, likely reactive. No pericardial effusion. There are coronary artery and aortic calcifications. There are mild thoracic spine degenerative changes. IMPRESSION: Early pneumonia most advanced at the right lung base. Follow-up chest CT suggested in 3 months to make sure that this completely resolves without underlying nodule. ACT 112: Positive. There are findings on this exam that require communication between the performing entity and the patient following Patient Test Result Information Act ([place] Act 112) guidelines. Electronically signed by: Romario Henning M.D. 11/06/2024 12:[address] 11/06/24 09:28 CT head/brain wo con CLINICAL HISTORY: ams. TECHNIQUE: Multiple axial CT images of the head were obtained without contrast. A dose lowering technique was utilized adhering to the principles of ALARA. COMPARISON: 03/17/2018 FINDINGS: There is mild motion artifact. No intracranial hemorrhage seen. No mass effect, midline shift, or hydrocephalus. Stable mild chronic small vessel ischemic changes. No skull fracture seen. Stable mucous retention cyst in the left maxillary sinus. Otherwise the visualized paranasal sinuses and mastoid air cells are clear. IMPRESSION: No acute findings. ACT 112: Negative or not required by law. The above report was generated using voice recognition software. It may contain grammatical, syntax or spelling errors. Electronically signed by: Romario Henning M.D. 11/06/2024 11:44 AM Discharge Plan Visit Data Chief Complaint: Respiratory Problems ED Provider: Wilbur Barrios Discharge Problem: Sepsis, Acute respiratory failure with hypoxia, AMS (altered mental status), Vomiting, Aspiration into airway, Influenza Patient Disposition: Admitted As Inpatient Discharge Instructions Interventions: ED Discharge Assessment Last Done: 11/06/24 13:25 Forms Stand Alone Forms: [facility] [employer] Prescriptions Prescriptions: No Action glipizide 10 mg Tablet See Rx Instructions .ROUTE .COMPLEX Rx Instructions: Take 20mg by mouth in the morning and 10mg by mouth at bedtime. Per pharmacy, last filled 12/2023 x90 day supply. Family states pt still taking. metformin 1,000 mg Tablet 1,000 mg PO BID Rx Instructions: Per pharmacy, last filled 12/2023 x90 day supply. Family states pt still taking. atorvastatin [Lipitor] 20 mg Tablet 20 mg PO PM alendronate [Fosamax] 70 mg Tablet 70 mg PO WK Rx Instructions: TUESDAYS prednisone 5 mg Tablet 5 mg PO BID warfarin 5 mg Tablet 5 mg PO QAM duloxetine 20 mg Capsule,Delayed Release(Dr/Ec) 20 mg PO QPM cholecalciferol (vitamin D3) [Vitamin D3] 50 mcg (2,000 unit) Tablet 50 mcg PO QAM acetaminophen [Tylenol Extra Strength] 500 mg Tablet 500 - 1,000 mg PO Q6H PRN (Reason: Pain) enalapril maleate 10 mg Tablet 10 mg PO QAM Qty: 30 0RF metoprolol tartrate 50 mg Tablet 50 mg PO BID Qty: 60 1RF Trulicity 4.5 mg/0.5 mL pen injector 4.5 mg subcut WK Rx Instructions: Referrals Referrals: Artemio Truong DO [Primary Care Provider] -
[2024-11-06] MEDS: SODIUM CHLORIDE 0.9% 1,000 ML IV ONE (09:55)
[2024-11-06] MEDS: MAGNESIUM SULFATE / D5W 1 GM/100 ML BAG IV SCH (09:59)
[2024-11-06] MEDS: VANCOMYCIN HCL 2,000 MG in SODIUM CHLORIDE 0.9% 500 ML IV ONE (09:59)
[2024-11-06 10:14] LABS: Adenovirus PCR Not Detected (NotDetected); Bordetella parapertussis PCR Not Detected (NotDetected); Bordetella pertussis PCR Not Detected (NotDetected); Chlamydia pneumoniae PCR Not Detected (NotDetected); Coronavirus 229E PCR Not Detected (NotDetected); Coronavirus CoV-2 (COVID19)PCR Not Detected (NotDetected); Coronavirus HKU1 PCR Not Detected (NotDetected); Coronavirus NL63 PCR Not Detected (NotDetected); Coronavirus OC43PCR Not Detected (NotDetected); Human Metapneumovirus PCR Not Detected (NotDetected); Influenza A (H1 2009) PCR DETECTED (NotDetected); Influenza B PCR Not Detected (NotDetected); Mycoplasma pneumoniae PCR Not Detected (NotDetected); Parainfluenza Virus 1 PCR Not Detected (NotDetected); Parainfluenza Virus 2 PCR Not Detected (NotDetected); Parainfluenza Virus 3 PCR Not Detected (NotDetected); Parainfluenza Virus 4 PCR Not Detected (NotDetected); Respiratory Syncytial VirusPCR Not Detected (NotDetected); Rhinovirus/Enterovirus PCR Not Detected (NotDetected)
[2024-11-06] MEDS: SODIUM CHLORIDE 0.9% 500 ML IV ONE ×2 (10:35→11:57)
[2024-11-06 10:54] LABS: Appearance Urine Clear (Clear); Bacteria Urine Automated None Seen (None Seen); Bilirubin Urine Negative (Negative); Blood Urine Trace (Negative); Color Urine Yellow; Epithelial Cell Urine Auto 0-2 /hpf (0-2); Glucose Urine UA 3+ (Negative); Ketones Urine 1+ (Negative); Leukocyte Esterase Urine Negative (Negative); Nitrite Urine Negative (Negative); Protein Urine 2+ (Negative); RBC Urine Automated 0-2 /hpf (0-2); Urobilinogen Urine Negative (Negative); WBC Urine Automated 0-5 /hpf (0-5); pH Urine 6.5 (4.5-7.5)
--- NOTE | 2024-11-06 11:47 | CT Scan Report ---
CT head/brain wo con CLINICAL HISTORY: ams. TECHNIQUE: Multiple axial CT images of the head were obtained without contrast. A dose lowering tech nique was utilized adhering to the principles of ALARA. COMPARISON: 03/17/2018 FINDINGS: There is mild motion artifact. No intracranial hemorrhage seen. No mass effect, midline aguilar ft, or hydrocephalus. Stable mild chronic small vessel ischemic changes. No skull fracture seen. Stab le mucous retention cyst in the left maxillary sinus. Otherwise the visualized paranasal sinuses and mastoid air cells are clear. IMPRESSION: No acute findings. ACT 112: Negative or not required by law. The above report was generated using voice recognition software. It may contain grammatical, syntax o r spelling errors. Electronically signed by: Romario Henning M.D. 11/06/2024 11:44 AM
[2024-11-06] MEDS: OSELTAMIVIR PHOSPHATE 75 MG CAP PO STA (11:48)
--- NOTE | 2024-11-06 12:04 | CT Scan Report ---
CT chest diagnostic wo con CT DOSE: [id number] CLINICAL HISTORY: fever, sob. TECHNIQUE: Multiaxial CT images of the chest were performed without contrast. A dose lowering techni que was utilized adhering to the principles of ALARA. COMPARISON STUDY: 03/17/2018 FINDINGS: There is mild motion artifact due to difficulty breath holding. There is bronchial wall thi ckening consistent with bronchitis. There are scattered patchy groundglass pulmonary opacities most p rominent at the right lower lung. There is a small area of patchy consolidation posterior right lung base. Findings are consistent with early pneumonia. There is no pleural effusion or pneumothorax. The re is minimal mediastinal adenopathy, likely reactive. No pericardial effusion. There are coronary ar arnie and aortic calcifications. There are mild thoracic spine degenerative changes. IMPRESSION: Early pneumonia most advanced at the right lung base. Follow-up chest CT suggested in 3 m [facility] to make sure that this completely resolves without underlying nodule. ACT 112: Positive. There are findings on this exam that require communication between the performing entity and the patient following Patient Test Result Information Act [place] Act 112) guidelines. Electronically signed by: Romario Henning M.D. 11/06/2024 12:02 PM
--- NOTE | 2024-11-06 12:05 | History & Physical Report ---
Date of Service November 06, 2024 Assessment & Plan (1) Vomiting: (2) AMS (altered mental status): (3) Pulmonary edema: (4) Chronic steroid use: (5) Polymyalgia rheumatica: (6) HTN, goal below 140/90: (7) Diabetes mellitus, type 2: (8) Hyperlipidemia: (9) Hypertension: (10) Permanent atrial fibrillation: Plan The patient is an 78-year-old male with a past medical history of A-fib on Coumadin, depression, HLD, DM2, PMR who presents to the ED on 11/06/2024 with complaints of flulike symptoms, found to be positive for flu A, suspicion for aspiration pneumonia and acute hypoxic respiratory failure Assessment and plan: Acute hypoxic respiratory failure Sepsis/suspected aspiration pneumonia Influenza A: Found to be 77% on room air by EMS, patient's reports vomiting suspicious for aspiration Oxygen improved on 13 L, continue IV Vanco/Zosyn for aspiration pneumonia Found to be positive for influenza A, continue Tamiflu, originally hypotensive on arrival Blood pressure improved with sepsis fluids, lactic acid slowly improving, 5.7 on arrival Continue IV fluids and telemetry monitoring Elevated troponin: Likely secondary to hypoxia and demand ischemia with recent viral illness No acute EKG changes/chest pain, continue to monitor Hx DM2: On Trulicity/glipizide/metformin at home, hold p.o. medications SSI/glycemic pharmacy consult, 4 times daily BGM Hx AF: Continue home metoprolol and warfarin A total of 60 minutes was spent on chart review/facilitating plan of care/reviewing diagnostic data/discussion with consultants Patient is a DNR/DNI DVT prophylaxis: Warfarin History of Present Illness Chief Complaint: Aspiration, unresponsive, hypoxia Primary Care Provider: Artemio Truong DO The patient is an 78-year-old male with a past medical history of AF, HLD, uncontrolled DM2, HTN who presented to the ED on 11/06/2024 with complaints of flulike symptoms over the past 2 days. The patient's reported that he vomited in the bed overnight and she found him barely responsive. EMS was called and his oxygen level was 80% on room air with concerns for aspiration. Patient was placed on 13 L OxyMask and deep suctioned on arrival to the ED and oxygen level improved. is at the bedside, reports not feeling well over the past few days, reported feeling cold last night. He then began vomiting last night. Reports trouble breathing that is worsening. Denies coughing but reports sore throat. Denies any chest pain or belly pain. Patient is a poor historian but is able to answer questions appropriately. Reports fevers at home. Does not wear any oxygen at home. EKG shows rapid A-fib in the 120s. SBPs originally in the 70s on arrival, now improved to 90s after fluid resuscitation. Labs are remarkable for WBC 11.5, hemoglobin 13.5, INR 1.9, anion gap 14, glucose 298, lactic 4.6, magnesium 1.4, procalcitonin 0.84 Patient is positive for flu A Chest x-ray without acute changes Head CT negative, abdominal/pelvis CT negative for any acute findings Chest CT shows early pneumonia, most advanced at right lung base Allergies Allergy/AdvReac Type Severity Reaction Status Date / Time oxycodone Allergy Intermediate WHEEZING Verified 11/06/24 12:15 Home Medications Medication Instructions Recorded Confirmed Type alendronate 70 mg tablet (Fosamax) 70 mg PO WK 12/25/21 11/06/24 History atorvastatin 20 mg tablet (Lipitor) 20 mg PO PM 12/25/21 11/06/24 History cholecalciferol (vitamin D3) 50 50 mcg PO QAM 12/25/21 11/06/24 History mcg (2,000 unit) tablet (Vitamin D3) duloxetine 20 mg capsule,delayed 20 mg PO QPM 12/25/21 11/06/24 History release glipizide 10 mg tablet See Rx Instructions .Route .COMPLEX 12/25/21 11/06/24 History metformin 1,000 mg tablet 1,000 mg PO BID 12/25/21 11/06/24 History prednisone 5 mg tablet 5 mg PO BID 12/25/21 11/06/24 History warfarin 5 mg tablet 5 mg PO QAM 12/25/21 11/06/24 History acetaminophen 500 mg tablet 500 - 1,000 mg PO Q6H PRN Pain 12/30/22 11/06/24 History (Tylenol Extra Strength) enalapril maleate 10 mg tablet 10 mg PO QAM #30 tabs 01/03/23 11/06/24 Rx metoprolol tartrate 50 mg tablet 50 mg PO BID #60 tabs 01/03/23 11/06/24 Rx dulaglutide 4.5 mg/0.5 mL 4.5 mg subcut WK 11/06/24 11/06/24 History subcutaneous pen injector (Trulicity) Past Med/Surg History Problem List (Updated 11/06/24 @ 14:23 by Background Luis) Influenza (Acute) Aspiration into airway (Acute) Vomiting (Acute) AMS (altered mental status) (Acute) Sepsis (Acute) Acute respiratory failure with hypoxia (Acute) Human metapneumovirus (hMPV) pneumonia (Acute) Pulmonary edema (Acute) Atrial fibrillation with rapid ventricular response (Acute) Scrotal swelling Tight foreskin HTN, goal below 140/90 Steroid-induced osteoporosis Permanent atrial fibrillation ARF (acute renal failure) (Acute) Acute kidney injury (Acute) Dehydration (Acute) Dehydration (Acute) Gastroenteritis (Acute) Nausea (Acute) Weakness (Acute) Encounter for pre-operative examination Medical History Atrial fibrillation follows with Dr Sebastian, no cardioversion. managed with medications. Chronic steroid use Diabetes mellitus, type 2 NIDDM Hyperlipidemia Hypertension On anticoagulant therapy Osteoarthritis Polymyalgia rheumatica takes prednisone BID to manage. Surgical History H/O eye surgery bilateral tear duct procedures to place a "drain" History of arthroscopy of left shoulder History of cataract surgery History of colonoscopy S/P left knee arthroscopy Family History Other No family history of adverse response to anesthesia Social History Smoking Status: Former smoker Tobacco Type: Cigarettes Second Hand Exposure: No; Do You Dip or Chew Tobacco: No; Tobacco Cessation Education Requested by Patient: No Hx Alcohol Use: No Hx Substance Use: No Preferred Language: [place] Citizen Communication Ability: Effective [employer]obile [employer] Required: No Beliefs That Will Affect Care: None marital status: Current Living Situation: Spouse Other Information That Helps Us Care for You: No Feels Safe at Home: Yes Safety Concerns: Feels Safe At This Time Assistive Devices: Glasses Review of Systems Review of Systems: All systems reviewed & are unremarkable except as noted in HPI & below Physical Exam Constitutional: WD/WN, vitals as above + ill appearing Eyes: PERRL, conjunctivae normal, anicteric sclerae ENMT: external ear and nose normal, oropharynx normal Neck: trachea midline, no thyromegaly Respiratory: normal respiratory effort, lungs clear to auscultation (coarse breath sounds b/l) Auscultation: + lungs not clear to auscultation Cardiovascular: RRR, no murmur, no edema (tachycardic, no edema ) Gastrointestinal (Abdomen): normal bowel sounds, soft, nontender, no hepatosplenomegaly Musculoskeletal: no cyanosis or clubbing, extremities motor strength 5/5 Skin: no rashes, warm and dry Neurologic: PERRL, EOMI, accommodation nl, no face palsy, no dysarthria Lymphatic: no cervical or axillary lymphadenopathy Results & Data Results & Data Vital Signs (Past 12 Hours) Vital Signs Temp Pulse Pulse Resp BP BP Pulse Ox 11/06/24 11:00 107 H 26 H 96/61 L 98 11/06/24 10:45 93/64 L 11/06/24 10:30 87/56 L 11/06/24 10:18 108 H 34 H 70/46 L 99 11/06/24 10:05 114 H 84/49 L 11/06/24 10:00 38.3 C H 11/06/24 09:39 108 H 28 H 125/66 96 11/06/24 08:56 123 H 11/06/24 08:49 11/06/24 08:49 39.5 C H 126 H 26 H 168/77 H 94 O2 Del Method O2 Flow Rate 11/06/24 11:00 11/06/24 10:45 11/06/24 10:30 11/06/24 10:18 11/06/24 10:05 11/06/24 10:00 11/06/24 09:39 11/06/24 08:56 11/06/24 08:49 Oxymask 13 11/06/24 08:49 Oxymask 13 Diagnostic Findings Laboratory Results WBC 11.54 K/ul (4.8-10.8) H 11/06/24 08:50 RBC 4.67 M/uL (4.70-6.10) L 11/06/24 08:50 Hgb 13.5 g/dl (14.0-18.0) L 11/06/24 08:50 POC Hgb 14.6 g/dl (14.0-18.0) 11/06/24 09:00 Hct 41.9 % (42.0-52.0) L 11/06/24 08:50 POC Hct 43 % (42-52) 11/06/24 09:00 MCV 89.7 fL (80.0-100.0) 11/06/24 08:50 MCH 28.9 pg (25.0-34.0) 11/06/24 08:50 MCHC 32.2 g/dL (32.0-36.0) 11/06/24 08:50 RDW Std Deviation 45.9 fL (36.4-46.3) 11/06/24 08:50 RDW Coeff of Roverto 14.1 % (11.5-14.5) 11/06/24 08:50 Plt Count 236 K/uL (130-400) 11/06/24 08:50 MPV 11.2 fL (9.4-12.4) 11/06/24 08:50 Immature Gran % (Auto) 0.7 % 11/06/24 08:50 Neut % (Auto) 76.2 % 11/06/24 08:50 Lymph % (Auto) 13.3 % 11/06/24 08:50 Iron % (Auto) 9.4 % 11/06/24 08:50 Eos % (Auto) 0.1 % 11/06/24 08:50 Baso % (Auto) 0.3 % 11/06/24 08:50 Neut # (Auto) 8.80 K/uL (1.40-6.50) H 11/06/24 08:50 Lymph # (Auto) 1.53 K/uL (1.20-3.40) 11/06/24 08:50 Iron # (Auto) 1.09 K/uL (0.11-0.59) H 11/06/24 08:50 Eos # (Auto) 0.01 K/uL (0.00-0.50) 11/06/24 08:50 Baso # (Auto) 0.03 K/uL (0.00-0.20) 11/06/24 08:50 Immature Gran # (Auto) 0.08 K/uL (0.01-0.20) 11/06/24 08:50 PT 19.2 Seconds (9.0-12.0) H 11/06/24 08:50 INR 1.9 (0.9-1.1) H 11/06/24 08:50 APTT 28 Seconds (21-31) 11/06/24 08:50 PTT Ratio 1.0 11/06/24 08:50 Specimen Type Arterial 11/06/24 08:53 POC pH 7.39 (7.35-7.45) 11/06/24 08:53 POC pCO2 35 mmHg (35-46) 11/06/24 08:53 POC pO2 75 mmHg (80-95) L 11/06/24 08:53 POC HCO3 21 merline/L (19-24) 11/06/24 08:53 POC Total CO2 22 mmol/L (24-31) L 11/06/24 08:53 POC Base Excess -4.0 merline/L (-9-1.8) 11/06/24 08:53 POC ABG O2 Sat 95.0 % (90-95) 11/06/24 08:53 POC Sodium 137 mmol/L (135-144) 11/06/24 09:00 Sodium 136 mmol/L (136-145) 11/06/24 08:50 POC Potassium 3.5 mmol/L (3.3-5.0) 11/06/24 09:00 Potassium 3.6 mmol/L (3.5-5.1) 11/06/24 08:50 POC Chloride 100 mmol/L (101-112) L 11/06/24 09:00 Chloride 98 mmol/L (98-107) 11/06/24 08:50 Carbon Dioxide 24 mmol/L (21-32) 11/06/24 08:50 POC Total CO2 23 mmol/L (24-31) L 11/06/24 09:00 Anion Gap 14 (3-11) H 11/06/24 08:50 POC Anion Gap 17.0 mmol/L (16-25) 11/06/24 09:00 POC BUN 24 mg/dl (7-18) H 11/06/24 09:00 BUN 24 mg/dl (6-23) H 11/06/24 08:50 Creatinine 1.38 mg/dl (0.6-1.4) 11/06/24 08:50 POC Creatinine 1.3 mg/dl (0.6-1.3) 11/06/24 09:00 Est Cr Clr Drug Dosing 46.9 ml/min 11/06/24 08:50 eGFR 51.69 11/06/24 08:50 BUN/Creatinine Ratio 17.4 (10-20) 11/06/24 08:50 Glucose 298 mg/dl (70-99(Fasting)) H 11/06/24 08:50 POC Glucose (other) 295 mg/dl (70-99) H 11/06/24 09:00 Lactate 5.1 mmol/L (0.4-2.0) H* 11/06/24 12:37 Calcium 9.3 mg/dl (8.6-10.3) 11/06/24 08:50 POC Ioniz Calcium Lisa 1.09 mmol/l (1.12-1.32) L 11/06/24 09:00 Magnesium 1.4 mg/dl (1.7-2.4) L 11/06/24 08:50 Total Bilirubin 0.6 mg/dl (0.2-1.0) 11/06/24 08:50 Direct Bilirubin 0.1 mg/dl (0-0.2) 11/06/24 08:50 AST 18 U/L (13-39) 11/06/24 08:50 ALT 19 U/L (7-52) 11/06/24 08:50 Alkaline Phosphatase 38 U/L (34-104) 11/06/24 08:50 Troponin I High Sens 73.1 pg/ml (0-20) H* D 11/06/24 11:35 Total Protein 7.2 gm/dl (6.0-8.3) 11/06/24 08:50 Albumin 4.2 gm/dl (3.4-5.0) 11/06/24 08:50 Procalcitonin 0.84 ng/ml (0-0.5) H 11/06/24 08:50 Urine Color Yellow 11/06/24 10:30 Urine Appearance Clear (Clear) 11/06/24 10:30 Urine pH 6.5 (4.5-7.5) 11/06/24 10:30 Ur Specific [place] 1.020 (1.000-1.030) 11/06/24 10:30 Urine Protein 2+ (Negative) H 11/06/24 10:30 Urine Glucose (UA) 3+ (Negative) H 11/06/24 10:30 Urine Ketones 1+ (Negative) H 11/06/24 10:30 Urine Blood Trace (Negative) H 11/06/24 10:30 Urine Nitrite Negative (Negative) 11/06/24 10:30 Urine Bilirubin Negative (Negative) 11/06/24 10:30 Urine Urobilinogen Negative (Negative) 11/06/24 10:30 Ur Leukocyte Esterase Negative (Negative) 11/06/24 10:30 Urine WBC (Auto) 0-5 /hpf (0-5) 11/06/24 10:30 Urine RBC (Auto) 0-2 /hpf (0-2) 11/06/24 10:30 U Hyaline Cast (Auto) 3-5 /lpf (0-2) H 11/06/24 10:30 U Epithel Cells (Auto) 0-2 /hpf (0-2) 11/06/24 10:30 Urine Bacteria (Auto) None Seen (None Seen) 11/06/24 10:30 Nasal Influ A H1 2009 PCR DETECTED (NotDetected) A 11/06/24 08:40 Adenovirus (PCR) Not Detected (NotDetected) 11/06/24 08:40 B. pertussis DNA (PCR) Not Detected (NotDetected) 11/06/24 08:40 B.parapertussis DNA PCR Not Detected (NotDetected) 11/06/24 08:40 C. pneumoniae DNA (PCR) Not Detected (NotDetected) 11/06/24 08:40 Coronavirus OC43 (PCR) Not Detected (NotDetected) 11/06/24 08:40 Coronavirus HKU1 (PCR) Not Detected (NotDetected) 11/06/24 08:40 Coronavirus 229E (PCR) Not Detected (NotDetected) 11/06/24 08:40 SARS-CoV-2 (PCR) Not Detected (NotDetected) 11/06/24 08:40 Coronavirus NL63 (PCR) Not Detected (NotDetected) 11/06/24 08:40 Human Metapneumovir PCR Not Detected (NotDetected) 11/06/24 08:40 Influenza Type B (PCR) Not Detected (NotDetected) 11/06/24 08:40 M. pneumoniae (PCR) Not Detected (NotDetected) 11/06/24 08:40 Parainfluenza 1 (PCR) Not Detected (NotDetected) 11/06/24 08:40 Parainfluenza 2 (PCR) Not Detected (NotDetected) 11/06/24 08:40 Parainfluenza 3 (PCR) Not Detected (NotDetected) 11/06/24 08:40 Parainfluenza 4 (PCR) Not Detected (NotDetected) 11/06/24 08:40 RSV (PCR) Not Detected (NotDetected) 11/06/24 08:40 Entero/Rhino (PCR) Not Detected (NotDetected) 11/06/24 08:40 Impressions Chest X-Ray 11/06/24 08:49 XR chest 1V portable CLINICAL HISTORY: Sepsis COMPARISON STUDY: 12/30/2022 FINDINGS: Stable mild cardiomegaly without pulmonary vascular congestion. No effusion, consolidation, or pneumothorax. IMPRESSION: No acute findings. ACT 112: Negative or not required by law. Electronically signed by: Romario Henning M.D. 11/06/2024 9:19 AM Abdomen/Pelvis CT 11/06/24 09:[address] WITHOUT CONTRAST CT DOSE: 3859.8 mGy.cm HISTORY: fever, ams, vomiting TECHNIQUE: Multiaxial CT images of the abdomen and pelvis were performed without contrast. A dose lowering technique was utilized adhering to the principles of ALARA. COMPARISON STUDY: 12/30/2022 FINDINGS: ABDOMEN: Liver, gallbladder, spleen, pancreas, and adrenal glands have an unremarkable non-IV contrast appearance. Kidneys show no hydronephrosis or calculi. There are scattered atherosclerotic calcifications. No abdominal aortic aneurysm. Pelvis: Carreno catheter is present and the urinary bladder is empty. Prostate is minimally enlarged. There is moderate retained stool. No bowel inflammation or obstruction. Normal appendix. No free fluid, free air, or abscess. No enlarged adenopathy. Osseous structures: There is moderate lumbar degenerative disc disease. IMPRESSION: No acute findings. ACT 112: Negative or not required by law. The above report was generated using voice recognition software. It may contain grammatical, syntax or spelling errors. Electronically signed by: Romario Henning M.D. 11/06/2024 12:[address] 11/06/24 09:28 CT chest diagnostic wo con CT DOSE: 3859 CLINICAL HISTORY: fever, sob. TECHNIQUE: Multiaxial CT images of the chest were performed without contrast. A dose lowering technique was utilized adhering to the principles of ALARA. COMPARISON STUDY: 03/17/2018 FINDINGS: There is mild motion artifact due to difficulty breath holding. There is bronchial wall thickening consistent with bronchitis. There are scattered patchy groundglass pulmonary opacities most prominent at the right lower lung. There is a small area of patchy consolidation posterior right lung base. Findings are consistent with early pneumonia. There is no pleural effusion or pneumothorax. There is minimal mediastinal adenopathy, likely reactive. No pericardial effusion. There are coronary artery and aortic calcifications. There are mild thoracic spine degenerative changes. IMPRESSION: Early pneumonia most advanced at the right lung base. Follow-up chest CT suggested in 3 months to make sure that this completely resolves without underlying nodule. ACT 112: Positive. There are findings on this exam that require communication between the performing entity and the patient following Patient Test Result Information Act ([place] Act 112) guidelines. Electronically signed by: Romario Henning M.D. 11/06/2024 12:[address] 11/06/24 09:28 CT head/brain wo con CLINICAL HISTORY: ams. TECHNIQUE: Multiple axial CT images of the head were obtained without contrast. A dose lowering technique was utilized adhering to the principles of ALARA. COMPARISON: 03/17/2018 FINDINGS: There is mild motion artifact. No intracranial hemorrhage seen. No mass effect, midline shift, or hydrocephalus. Stable mild chronic small vessel ischemic changes. No skull fracture seen. Stable mucous retention cyst in the left maxillary sinus. Otherwise the visualized paranasal sinuses and mastoid air cells are clear. IMPRESSION: No acute findings. ACT 112: Negative or not required by law. The above report was generated using voice recognition software. It may contain grammatical, syntax or spelling errors. Electronically signed by: Romario Henning M.D. 11/06/2024 11:44 AM Supervising Physician Co-Signing Physician Notes Patient is an 78-year-old male with history of polymyalgia rheumatica on chronic prednisone, A-fib, diabetes mellitus, hypertension, tobacco use disorder and other medical problems presents with history of worsening flulike symptoms since 2 days duration. Patient is a poor historian. Patient's history is also obtained from family at bedside. Patient had an episode of vomiting yesterday resulting in aspiration. Patient was found to be saturating in 80s by EMS and was placed on oxime mask while in ED. Patient admits to have worsening shortness of breath associated with sore throat but denies any significant cough. Patient denies any chest pain, abdominal pain. Patient is lethargic. Please review HPI for complete details of presentation. I personally reviewed blood work and imaging studies. He was noted to be positive for influenza A. INR subtherapeutic 1.9. Lactic acid elevated 5.6. Troponin 32.4. Procalcitonin 0.84. CT head showed no acute process. CT chest showed signs of right lung base pneumonia. EKG showed A-fib RVR. Physical Exam: Vitals signs as noted above General Appearance:Moderately built and nourished, mild respiratory distress Head: normocephalic, Atraumatic Eyes: normal inspection, EOMI Neck: supple, Trachea midline Respiratory/Chest: Coarse breath sounds, No accessory muscle use Cardiovascular: Irregularly irregular, tachycardia, No murmur Abdomen/GI:Soft, Non tender, Bowel sounds present Extremities/Musculoskeletal:normal inspection, no edema Neurologic/Psych: Alert, awake, lethargic, grossly no focal neurological deficits Skin: normal color, warm Acute respiratory failure with hypoxia Aspiration pneumonia Influenza A infection Sepsis secondary to above Lactic acidosis Acute metabolic encephalopathy Agree with empiric broad-spectrum antibiotics, aspiration precautions Started on Tamiflu Oxygen support as needed Confirmed DNI DNR with patient and patient's family at bedside Consider pulmonology evaluation if no improvement IV fluids Trend lactate levels Blood cultures obtained Nebs as needed Speech eval Aspiration precautions Check nasal MRSA Subtherapeutic INR Will increase Coumadin dose to 7.5 mg today Monitor INR A-fib RVR Continue metoprolol with holding parameters On Coumadin for anticoagulation Monitor INR Troponin elevation Likely demand ischemia secondary to respiratory failure Patient denies any chest pain Check resting echo I personally interviewed and examined the patient at bedside. I have reviewed the advanced practitioner's documentation on the date of service referred in note and agree with plan. Patient's care is coordinated with Demetrice SIMPSON. Please refer to the documentation above for details of patient's presentation and for discussion of other issues. I spent a total [id number] coordinating, documenting, and providing care for this patient excluding time spent in the performance of separately billed services or time spent by another provider/QHP.
--- NOTE | 2024-11-06 12:07 | CT Scan Report ---
ABDOMEN AND PELVIS CT WITHOUT CONTRAST CT DOSE: 3859.8 mGy.cm HISTORY: fever, ams, vomiting TECHNIQUE: Multiaxial CT images of the abdomen and pelvis were performed without contrast. A dose lo wering technique was utilized adhering to the principles of ALARA. COMPARISON STUDY: 12/30/2022 FINDINGS: ABDOMEN: Liver, gallbladder, spleen, pancreas, and adrenal glands have an unremarkable non-IV contras t appearance. Kidneys show no hydronephrosis or calculi. There are scattered atherosclerotic calcific ations. No abdominal aortic aneurysm. Pelvis: Carreno catheter is present and the urinary bladder is empty. Prostate is minimally enlarged. T here is moderate retained stool. No bowel inflammation or obstruction. Normal appendix. No free fluid , free air, or abscess. No enlarged adenopathy. Osseous structures: There is moderate lumbar degenerative disc disease. IMPRESSION: No acute findings. ACT 112: Negative or not required by law. The above report was generated using voice recognition software. It may contain grammatical, syntax o r spelling errors. Electronically signed by: Romario Henning M.D. 11/06/2024 12:05 PM
[2024-11-06] MEDS ORDERED: GLUCOSE 10 TAB/TUBE PO PRN (12:19)
[2024-11-06] MEDS ORDERED: PHARMACY GLYCEMIC MGMT CONSULT PRN (12:19)
[2024-11-06] MEDS ORDERED: CARBOHYDRATES FOR HYPOGLYCEMIA PO PRN (12:19)
[2024-11-06] MEDS ORDERED: GLUCOSE 40% GEL 15 GM TUBE PO PRN (12:19)
[2024-11-06] MEDS ORDERED: DEXTROSE 50% 50 ML SYRINGE IV PRN (12:19)
[2024-11-06] MEDS ORDERED: GLUCAGON FOR INJ 1 MG VIAL SQ PRN (12:19)
[2024-11-06] MEDS: SODIUM CHLORIDE 0.9% 500 ML IV SCH (13:12)
[2024-11-06] MEDS: METOPROLOL TARTRATE 50 MG TAB PO ONE (13:12)
--- NOTE | 2024-11-06 14:09 | Electrocardiogram Report ---
Test Reason : Blood Pressure : */* mmHG Vent. Rate : 122 BPM Atrial Rate : * BPM P-R Int : * ms QRS Dur : 80 ms QT Int : 300 ms P-R-T Axes : * 13 45 degrees QTcB Int : 427 ms Atrial fibrillation with rapid ventricular response with premature ventricular or aberrantly conducte d complexes Abnormal ECG When compared with ECG of 30-Dec-2022 18:04, Minimal criteria for Inferior infarct are no longer Present ST no longer depressed in Inferior leads Confirmed by Chrissy Fernandez ([id number]) on 11/06/2024 2:09:18 PM Referred By: Confirmed By: Chrissy Fernandez
[2024-11-06] MEDS ORDERED: ACETAMINOPHEN 325 MG TAB PO PRN (14:30)
[2024-11-06] MEDS: INSULIN ASPART PER UNIT CHARGE SC SCH ×2 (14:38→14:39)
--- NOTE | 2024-11-06 14:41 | Pharmacy Report ---
Pharmacy Glycemic Short Note 2 - Date of Service November 06, 2024 - Glycemic Short BSG Results (Last 24 hours): 11/06/24 11/06/24 11/06/24 08:50 09:00 14:29 Glucose 298 H POC Glucose 109 H POC Glucose (other) 295 H OUTPATIENT ANTIDIABETIC REGIMEN: * Metformin 1 g PO BIDM * Glipizide 20 mg PO qAM, 10 mg PO qPM * Trulicity 4.5 mg SC weekly HbA1c: ordered for 11/07/24 ASSESSMENT: * RR is an 78 year old male who presented to ED via EMS after being found barely responsive in bed this morning (concern for aspiration event) * Initiated on broad spectrum antibiotics for sepsis secondary to possible aspiration pneumonia (vancomycin and Zosyn). Also started on Tamiflu for influenza. * Hyperglycemic on presentation (BSG of 295 mg/dL), but improved to 109 mg/dL on admission with IV fluid boluses (~3000 mL) only * NPO at this time given aspiration risk - will hold off on basal insulin at this time * Continuing on outpatient prednisone 5 mg PO BID * Prior inpatient glycemic data influenced by IV steroids PLAN FOR INPATIENT GLYCEMIC CONTROL: * Hold outpatient oral diabetes medications * Basal insulin * hold for now * Bolus insulin * NovoLog per scale ACHS or Q6hrs while NPO * Goal Range: Low 110 mg/dL - High 140 mg/dL * Correction Factor: 30 mg/dL/unit * Nutritional / Prandial insulin per carb ratio of 1 unit per 10 grams CHO consumed
[2024-11-06] MEDS ORDERED: LANTUS PER UNIT CHARGE SC ONE (14:45)
[2024-11-06] MEDS: WARFARIN SOD 7.5 MG TAB PO ONE (15:47)
[2024-11-06] MEDS: PIPERACILLIN/TAZOBACTAM 4.5 GM/100 ML BAG IV SCH (15:50)
--- NOTE | 2024-11-06 17:10 | XRay Report ---
INDICATION: Difficulty breathing. TECHNIQUE: Frontal radiograph of the chest. COMPARISON: Radiograph from 12/30/2022. FINDINGS: Cardiomegaly. Mild pulmonary vascular congestion. Bilateral lower lobe infiltrates. Small left pleural effusion. No pneumothorax. No acute fracture. IMPRESSION: 1. Mild pulmonary vascular congestion. 2. Bilateral lower lobe infiltrates concerning for pneumonia. 3. Small left pleural effusion. Electronically signed by Bernardo Sutton 11-06-2024 5:10 PM
[2024-11-06] MEDS ORDERED: STAT IV Infusion **Titration per Protocol STA ×2 (17:24→21:59)
[2024-11-06] MEDS: NOREPINEPHRINE/D5W 4 MG/250 ML PLCT IV SCH (17:59)
--- NOTE | 2024-11-06 18:04 | Communication Note ---
Date of Service: November 06, 2024 Patient's oxygen needs began to increase from 40 L heated high flow to 45 L. Then notified by nursing of a manual BP in the 70s and 80s. Portable repeat chest x-ray showed mild pulmonary congestion which is new from earlier today. Discussed with Dr. Howard, patient started on Levophed and transferred to ICU for further management Verified CODE STATUS and updated patient's and daughter in law at bedside. Patient is a DNR/DNI.
[2024-11-06] MEDS: FUROSEMIDE INJ 20 MG/2 ML VIAL IV ONE (18:21)
[2024-11-06] MEDS: DULoxetine HCL 20 MG CAP PO SCH (19:36)
[2024-11-06] MEDS: HYDROCORTISONE SOD 50 MG in SYRINGE 0 ML IV SCH (19:36)
--- NOTE | 2024-11-06 19:52 | Critical Care Consultation ---
Date of Consultation November 06, 2024 Assessment & Plan (1) Acute respiratory failure with hypoxia: (2) Shock: (3) Aspiration pneumonitis: (4) Acute metabolic encephalopathy: (5) Atrial fibrillation with rapid ventricular response: (6) Acute kidney injury: (7) Lactic acidosis: (8) Demand ischemia: (9) Sepsis: Plan Reason Critically Ill: #Acute metabolic encephalopathy #Acute hypoxemic respiratory failure 2/2 Influenza and aspiration pneumonitis #Shock, septic vs. hypovolemic i/s/o likely adrenal insufficiency #SARWAT on CKD #HAGMA 2/2 lactic acidosis #Type II NSTEMI #Subtherapeutic INR 2/2 Rx non-compliance Neuro - RASS GOAL 0 Avoid sedating medications Ofirmev PRN fever/pain Home duloxetine as able, held while NPO Cardiac - Continue norepinephrine for MAP goal > 65mmHg Consider CVC is dose requirement increases, this was discussed with at bedside POCUS given concern for developing volume overload. He is S/P 2L IVF Hold home antihypertensive Received increased dose of warfarin earlier this evening. Will likely start heparin infusion in AM if unable to take PO then. Respiratory - Continue HFNC for SpO2 90-92%. He is a poor candidate for BIPAP given copious secretions as well as secretions in large airways. Denies nausea at this time. Tamiflu as able. ABX as below. Suction PRN. Encourage deep breathing and expectoration of secretions. CXR with likely developing RLL aspiration pneumonia Patient is a confirmed DNR/DNI, including in setting of respiratory insufficiency GI - Diet: NPO. Aspiration precautions SUP: N/A Bowel regimen: PRN RENAL/LYTES - Establish volume status Replete electrolytes as indicated Carreno for accurate I/Os, remove when respiratory status and shock improve Maintain net even to net negative ENDO - Hold home antihyperglycemics BG 140-180 per SCCM guidelines ISS if needed while inpatient Last A1c 9.6% (2022) HEME - Warfarin dose adjusted per INR Likely transition to heparin infusion unless patient able to take PO in AM F/U AM INR DVT PPX: Anticoagulated ID - Continue Zosyn given aspiration event Stop Vancomycin as MRSA negative BC x2 pending, procalcitonin 0.84, UA negative. Flu A + LINES/TUBES/DRAINS - PIV x4 Carreno (Day #1) DVT PROPHYLAXIS - Therapeutic anticoagulation I have personally spent 42 minutes of critical care time in the direct management of this patient. This is a life/limb threatening event. This includes time spent evaluating patient, direct bedside care, chart review, placing orders, interpretation of diagnostic studies, discussion with consultants, patient, and family members, as well as other required patient management activities. This time is exclusive of all separately billable procedures, and teaching time and separate from and in addition to any other critical care service time. Thank you for allowing us to participate in the care of this patient. Please refer to my attending physician's documentation for any further recommendations. History of Present Illness Reason for Consultation: Shock, Acute hypoxemic respiratory failure Requesting Physician: Gallo Attending Physician: Gideon Holder MD History of Present Illness Mr. Mitchel Mcpherson (Bob) is a pleasant 78YOM with a history of polymyalgia rheumatica on chronic prednisone, permanent atrial fibrillation on warfarin, HTN/HLD, 30PY cigarette smoker, possibly COPD (no PFT on file) who was admitted to [facility] on 11/06/2024 afternoon with acute hypoxemic respiratory failure 2/2 influenza A and aspiration pneumonitis. He was started on Zosyn and Vancomycin and admitted to Medicine. Patient developed hypotension refractory to IVF and given concern for developing volume overload he was transferred to ICU for vasopressor therapy. Patient is seen in ICU 104. He awakens to voice. He appears in mild respiratory distress. He is febrile and tachycardic. Requiring 45L/0.8, SpO2 99%. Patient is unable to provide much history. Does admit to shortness of breath and headache. and sons at bedside. relays patient has been unwell for a few days. Had sudden emesis episode with signs of aspiration at home. Decreased responsiveness. Discussed course at length. They understand that given his respiratory status and shock state in the setting of his age, comorbidities and deconditioning, we will need to take things hour by hour. Confirmed heroic measures are not within Eron's wishes. Allergies Allergy/AdvReac Type Severity Reaction Status Date / Time oxycodone Allergy Intermediate WHEEZING Verified 11/06/24 12:15 Home Medications Medication Instructions Recorded Confirmed Type alendronate 70 mg tablet (Fosamax) 70 mg PO WK 12/25/21 11/06/24 History atorvastatin 20 mg tablet (Lipitor) 20 mg PO PM 12/25/21 11/06/24 History cholecalciferol (vitamin D3) 50 50 mcg PO QAM 12/25/21 11/06/24 History mcg (2,000 unit) tablet (Vitamin D3) duloxetine 20 mg capsule,delayed 20 mg PO QPM 12/25/21 11/06/24 History release glipizide 10 mg tablet See Rx Instructions .Route .COMPLEX 12/25/21 11/06/24 History metformin 1,000 mg tablet 1,000 mg PO BID 12/25/21 11/06/24 History prednisone 5 mg tablet 5 mg PO BID 12/25/21 11/06/24 History warfarin 5 mg tablet 5 mg PO QAM 12/25/21 11/06/24 History acetaminophen 500 mg tablet 500 - 1,000 mg PO Q6H PRN Pain 12/30/22 11/06/24 History (Tylenol Extra Strength) enalapril maleate 10 mg tablet 10 mg PO QAM #30 tabs 01/03/23 11/06/24 Rx metoprolol tartrate 50 mg tablet 50 mg PO BID #60 tabs 01/03/23 11/06/24 Rx dulaglutide 4.5 mg/0.5 mL 4.5 mg subcut WK 11/06/24 11/06/24 History subcutaneous pen injector (Trulicity) Patient History Medical History Atrial fibrillation follows with Dr Sebastian, no cardioversion. managed with medications. Chronic steroid use Diabetes mellitus, type 2 NIDDM Hyperlipidemia Hypertension On anticoagulant therapy Osteoarthritis Polymyalgia rheumatica takes prednisone BID to manage. Surgical History H/O eye surgery bilateral tear duct procedures to place a "drain" History of arthroscopy of left shoulder History of cataract surgery History of colonoscopy S/P left knee arthroscopy Family History Other No family history of adverse response to anesthesia Social History Smoking Status: Former smoker Tobacco Type: Cigarettes Second Hand Exposure: No; Do You Dip or Chew Tobacco: No; Hx Alcohol Use: No Hx Substance Use: No Preferred Language: Urdu Communication Ability: Effective Air Liaison And Special Staff Required: No Beliefs That Will Affect Care: None marital status: Current Living Situation: Spouse Feels Safe at Home: Yes Assistive Devices: Glasses Review of Systems Review of Systems: All systems reviewed & are unremarkable except as noted in HPI & below Physical Exam Constitutional: + frail appearing, + diaphoretic and + l ethargic Eyes: Conjunctival injection, PERRL ENMT: Mouth: + dry oral mucous membranes; no oropharynx abnormality Neck: trachea midline, no thyromegaly Respiratory: + labored breathing, + tachypneic and sy mmetric chest movement Auscultation: + rhonchi Diffuse rhonchi, especially central airway and R base. Scattered crackles Cardiovascular: Rate/Rhythm: regular rate and + irregularly irregular Heart Sounds: no murmur Vessels: no JVD Gastrointestinal (Abdomen): normal bowel sounds, soft, nontender, no hepatosplenomegaly Musculoskeletal: no cyanosis or clubbing, extremities motor strength 5/5 Skin: Diaphoretic without lesions or rashes. Neurologic: PERRL, EOMI, accommodation nl, no face palsy, no dysarthria Genitourinary: Carreno in place draining light yellow urine Results & Data Results & Data Vital Signs (Past 12 Hours) Vital Signs Temp Pulse Pulse Resp BP BP BP 11/06/24 19:00 89/53 L 11/06/24 19:00 39.5 C H 100 H 31 H 11/06/24 19:00 11/06/24 18:31 39.7 C H 99 H 30 H 85/65 L 11/06/24 18:15 39.7 C H 110 H 33 H 89/59 L 11/06/24 18:03 39.7 C H 110 H 35 H 103/59 L 11/06/24 18:02 113 H 31 H 11/06/24 17:48 108 H 25 H 86/53 L 11/06/24 17:37 82/40 L 11/06/24 17:37 78/46 L 11/06/24 17:30 37.5 C 115 H 25 H 90/40 L 11/06/24 17:28 84/42 L 11/06/24 15:26 37.1 C 103 H 24 102/61 11/06/24 14:30 11/06/24 14:30 36.5 C 120 H 24 104/52 L 11/06/24 14:05 123 H 32 H 11/06/24 12:30 101 H 24 98/54 L 11/06/24 12:19 11/06/24 12:19 11/06/24 12:00 108 H 24 104/62 11/06/24 12:00 105 H 24 96/64 L 11/06/24 11:35 103 H 29 H 78/62 L 11/06/24 11:00 103 H 29 H 96/61 L 11/06/24 11:00 107 H 26 H 96/61 L 11/06/24 10:45 93/64 L 11/06/24 10:30 87/56 L 11/06/24 10:18 108 H 34 H 70/46 L 11/06/24 10:05 114 H 84/49 L 11/06/24 10:00 38.3 C H 11/06/24 09:39 108 H 28 H 125/66 11/06/24 08:56 123 H 11/06/24 08:49 11/06/24 08:49 39.5 C H 126 H 26 H 168/77 H Pulse Ox O2 Del Method O2 Flow Rate FiO2 11/06/24 19:00 11/06/24 19:00 100 11/06/24 19:00 Other 45 80 11/06/24 18:31 100 High Flow Nasal Cannula 45 80 11/06/24 18:15 100 High Flow Nasal Cannula 45 80 11/06/24 18:03 100 High Flow Nasal Cannula 45 80 11/06/24 18:02 96 High Flow Nasal Cannula 45 80 11/06/24 17:48 97 Oxymask 15 11/06/24 17:37 11/06/24 17:37 11/06/24 17:30 95 High Flow Nasal Cannula 45 80 11/06/24 17:28 11/06/24 15:26 89 L High Flow Nasal Cannula 45 80 11/06/24 14:30 High Flow Nasal Cannula 40 80 11/06/24 14:30 94 High Flow Nasal Cannula 40 80 11/06/24 14:05 94 High Flow Nasal Cannula 45 80 11/06/24 12:30 98 Oxymask 13 11/06/24 12:19 96 Oxymask 13 11/06/24 12:19 Oxymask 13 11/06/24 12:00 96 11/06/24 12:00 100 Oxymask 13 11/06/24 11:35 99 11/06/24 11:00 99 11/06/24 11:00 98 11/06/24 10:45 11/06/24 10:30 11/06/24 10:18 99 11/06/24 10:05 11/06/24 10:00 11/06/24 09:39 96 11/06/24 08:56 11/06/24 08:49 Oxymask 13 11/06/24 08:49 94 Oxymask 13 Laboratory Results Reviewed. Diagnostic Findings Reviewed. Medications Administered See MAR. Coding Level of Care Code 41815 CRITICAL CARE 1ST 30-74M Diagnoses Acute respiratory failure with hypoxia J96.01 Shock R57.9 Aspiration pneumonitis J69.0 Acute metabolic encephalopathy G93.41 Atrial fibrillation with rapid ventricular response I48.91 Acute kidney injury N17.9 Lactic acidosis E87.20 Demand ischemia I24.89 Sepsis A41.9
[2024-11-06] MEDS: OSELTAMIVIR PHOSPHATE SUSP 30 MG/5 ML UDP PO SCH (19:58)
[2024-11-06] MEDS ORDERED: METOPROLOL TARTRATE 50 MG TAB PO SCH (21:00)
--- NOTE | 2024-11-06 21:42 | Procedure Note ---
Procedure Note Date of Service November 06, 2024 ARTERIAL LINE PROCEDURE NOTE: Procedure: Arterial Line Placement Attending: Dr. Howard APC: Mabel Lam PA-C Indication: Monitoring on Pressors/Frequent labs Anesthesia: Lidocaine 1% Verbal consent was obtained from . Indication, risks, and benefits were explained at length. Written consent to be signed tomorrow. A time-out was completed verifying correct patient, procedure, site, positioning, and implant(s) or special equipment if applicable. Allens test was performed to ensure adequate perfusion. Patients R wrist was prepped and draped in the usual sterile fashion. Ultrasound guidance was used to aid needle placement. A 20g Arrow arterial line was introduced into the R radial artery. Catheter was threaded, and the needle was removed with appropriate blood return. Good waveform was observed. Free flow blood return. The patient tolerated the procedure well. Blood Loss: Minimal Complications: None Procedural Ultrasound Guidance: Procedure Date: 11/06/2024 Indication: Line insertion Attending: Dr. Howard APC: Mabel Lam PA-C Artery Identified: YES Complications: NONE Patient tolerated procedure: [facility] [place] Procedure Codes (Charges) Aterial Pressure Waveform Analysis Arterial Pressure Waveform: 76625 Arterial Pressure Waveform Analysis Tubes, Drains, and Vasc Access Procedure 1: Tubes, Drains, and Vasc Access: [id number] Arterial Cath/Cannulation Samp ling/Monitoring/Transfusion Coding CPT Codes Aterial Pressure Waveform Analysis - Arterial Pressure Waveform: 85797 Arterial Pressure Waveform Analysis ([id number]) Tubes, Drains, and Vasc Access - Tubes, Drains, and Vasc Access: [id number] Arterial Cath/Cannulation Sampling/Monitoring/Transfusion ([id number]) Additional Codes Date of Service (PG.SURGERY)
[2024-11-06] MEDS: VASOPRESSIN 20 UNITS in SODIUM CHLORIDE 0.9% 100 ML IV SCH (22:14)
[2024-11-06 22:38] LABS: iSTAT Art Bld Gas pCO2 Correct 38 mmHg (35-46); iSTAT Art Bld Gas pH Corrected 7.296 (7.35-7.45); iSTAT Arterial Blood Gas HCO3 19 meg/L (19-24); iSTAT Arterial Blood Gas pCO2 37 mmHg (35-46); iSTAT Arterial Blood Gas pO2 97 mmHg (80-95); iSTAT Arterial Blood Gas pO2 C 101; iSTAT Carbon Dioxide 20 mmol/L (24-31); iSTAT FiO2 75 %; iSTAT Hematocrit 36 % (42-52); iSTAT Hemoglobin 12.2 g/dl (14.0-18.0); iSTAT Sample Type Arterial; iSTAT Site Art Line; iSTAT Sodium 141 mmol/L (135-144); iSTAT SpO2 98
[2024-11-06 22:58] LABS: BUN Creatinine Ratio 11.6 (10-20); Calcium 7.4 mg/dl (8.6-10.3); Creatinine Clr Calc Pharmacy 24.2 ml/min; Magnesium 1.5 mg/dl (1.7-2.4); Potassium 4.4 mmol/L (3.5-5.1)
--- NOTE | 2024-11-06 23:10 | Procedure Note ---
Procedure Note Date of Service November 06, 2024 FEMORAL CENTRAL LINE PROCEDURE NOTE: Procedure: Femoral Central Line Placement Attending: Dr. Ramsey APC: Mabel aLm PA-C Indication: Central Drug Administration, Poor Venous Access, Multiple Lab Draws Necessary, etc. Site Selection Rationale: Respiratory compromise Anesthesia: Lidocaine 1% Verbal consent obtained from . Indication, risks, and benefits were explained at length.Written consent to be obtained in the morning when present. A time-out was completed verifying correct patient, procedure, site, positioning, and implants(s) or special equipment if applicable. Patients R Groin was cleansed and draped in the typical sterile fashion using Chloraprep. The Femoral Vein and Femoral Artery were identified using ultrasound. The superficial tissue was anesthetized using 4 mL of 1% lidocaine without epinephrine under direct visualization with the ultrasound. After adequate an esthetization was achieved, the Femoral Vein was cannulated under direct ultrasound guidance using an introducer needle on a syringe. Good venous blood return was maintained prior to removal of syringe from introducer needle. Using Seldinger Technique, a guide wire was advanced through the introducer needle without resistance. The introducer needle was removed and guidewire visualized within femoral vein on 2 views. A small incision was made in penetrating fashion at the guide wire insertion site utilizing an 11 blade. The dilator was advanced to the vessel without resistance. The dilator was exchanged for the triple lumen catheter which was advanced into the vessel without resistance. The guide wire was removed intact from the catheter without issue. Claves were placed on each catheter tip with confirmation of good blood flow from each lumen. Each port was easily flushed with sterile saline. The catheter was placed at the hub and sutured in place. A sterile CHG Tegaderm dressing was applied over the catheter with careful attention to sterility. Patient tolerated procedure well. No immediate complications were met. Procedural Ultrasound Guidance: Procedure Date: Indication: Central venous access Attending: Dr. Ramsey APC: Mabel Lam PA-C Artery AND Vein visualized: Y Compressible Vein: Y Guidewire or Short Catheter seen in vein prior to dilation: Y Line confirmed in Vein with ultrasound: Y [facility] Procedure Codes (Charges) Tubes, Drains, and Vasc Access Procedure 1: Tubes, Drains, and Vasc Access: [id number] Insertion Of Non-tunneled Catheter Age 3 Yrs> Procedure 2: Tubes, Drains, and Vasc Access: [id number] Ultrasound Guidance For Vascular Coding CPT Codes Tubes, Drains, and Vasc Access - Tubes, Drains, and Vasc Access: [id number] Insertion Of Non-tunneled Catheter Age 3 Yrs> ([id number]) Tubes, Drains, and Vasc Access - Tubes, Drains, and Vasc Access: [id number] Ultrasound Guidance For Vascular ([id number]) Additional Codes Date of Service (PG.SURGERY)
[2024-11-07] MEDS: MAGNESIUM SULFATE / D5W 1 GM/100 ML BAG IV SCH (00:17)
[2024-11-07] MEDS: ACETAMINOPHEN 1,000 MG/100 ML VIAL IV PRN (00:17)
[2024-11-07] MEDS: CALCIUM GLUCONATE 1,000 MG/60 ML BAG IV STA (01:33)
[2024-11-07 05:39] LABS: INR 2.5 (0.9-1.1); Prothrombin Time 24.9 Seconds (9.0-12.0)
[2024-11-07 05:46] LABS: Albumin Globulin Ratio 1.2 (0.9-2); Albumin Level 3.2 gm/dl (3.4-5.0); BUN Creatinine Ratio 11.9 (10-20); Bilirubin,Total 0.5 mg/dl (0.2-1.0); Calcium 8.1 mg/dl (8.6-10.3); Creatinine Clr Calc Pharmacy 23.3 ml/min; Globulin 2.6 gm/dl (2.5-4.0); Magnesium 2.4 mg/dl (1.7-2.4); Phosphorus 5.9 mg/dl (2.5-4.9); Potassium 5.1 mmol/L (3.5-5.1); Total Protein 5.8 gm/dl (6.0-8.3)
[2024-11-07 05:56] LABS: Basophils # (auto) 0.03 K/uL (0.00-0.20); Basophils % (auto) 0.2 %; Echinocytes 2+; Hematocrit (blood only) 36.5 % (42.0-52.0); Hemoglobin 11.8 g/dl (14.0-18.0); Immature Granulocytes # (auto) 0.08 K/uL (0.01-0.20); Immature Granulocytes % (auto) 0.6 %; Lymphocytes # (auto) 0.41 K/uL (1.20-3.40); Lymphocytes % (auto) 2.9 %; Mean Corpuscular Hemoglobin 28.7 pg (25.0-34.0); Mean Corpuscular Hgb Conc 32.3 g/dL (32.0-36.0); Mean Corpuscular Volume 88.8 fL (80.0-100.0); Mean Platelet Volume 11.1 fL (9.4-12.4); Monocytes % (auto) 4.2 %; Neutrophils # (auto) 13.05 K/uL (1.40-6.50); Neutrophils % (auto) 92.1 %; Platelet Count 168 K/uL (130-400); RDW Coefficient of Variation 14.4 % (11.5-14.5); RDW Standard Deviation 46.4 fL (36.4-46.3); Red Blood Count 4.11 M/uL (4.70-6.10); White Blood Count 14.17 K/ul (4.8-10.8)
[2024-11-07 06:42] LABS: iSTAT Art Bld Gas pCO2 Correct 35 mmHg (35-46); iSTAT Art Bld Gas pH Corrected 7.314 (7.35-7.45); iSTAT Arterial Blood Gas HCO3 18 meg/L (19-24); iSTAT Arterial Blood Gas pCO2 36 mmHg (35-46); iSTAT Arterial Blood Gas pH 7.31 (7.35-7.45); iSTAT Arterial Blood Gas pO2 113 mmHg (80-95); iSTAT Arterial Blood Gas pO2 C 112; iSTAT Carbon Dioxide 19 mmol/L (24-31); iSTAT FiO2 55 %; iSTAT Hematocrit 35 % (42-52); iSTAT Hemoglobin 11.9 g/dl (14.0-18.0); iSTAT Potassium 4.8 mmol/L (3.3-5.0); iSTAT Sample Type Arterial; iSTAT Site Art Line; iSTAT Sodium 138 mmol/L (135-144); iSTAT SpO2 98
[2024-11-07 07:11] LABS: Estimated Average Glucose 186 mg/dl; Hemoglobin A1C 8.1 % (4.5-5.6)
--- NOTE | 2024-11-07 07:33 | Critical Care Progress Note ---
Date of Service November 07, 2024 Assessment & Plan (1) Acute respiratory failure with hypoxia: (2) Shock: (3) Aspiration pneumonitis: (4) Acute metabolic encephalopathy: (5) Atrial fibrillation with rapid ventricular response: (6) Acute kidney injury: (7) Lactic acidosis: (8) Demand ischemia: (9) Sepsis: Plan Reason Critically Ill: 78-year-old male admitted to the hospital for hypoxic respiratory failure and hypotension Past medical history: PMR on 10 mg prednisone a daily basis, A-fib on warfarin, hypertension, dyslipidemia, COPD #Acute metabolic encephalopathy #Acute hypoxemic respiratory failure 2/2 Influenza and aspiration pneumonitis #Shock, septic vs. hypovolemic i/s/o likely adrenal insufficiency #SARWAT on CKD #HAGMA 2/2 lactic acidosis #Type II NSTEMI #Subtherapeutic INR 2/2 Rx non-compliance Neuro - CAM-ICU: Negative -- S/p metabolic encephalopathy Likely secondary to hypoxia and hypotension CT head 11/06/2024 negative for any acute findings --Anxiety/depression Continue with duloxetine Cardiac - -- Shock Multifactorial From influenza sepsis along with adrenal insufficiency given the patient is on chronic prednisone Vasopressor support to keep MAP greater than 65 Continue with hydrocortisone --History of A-fib On warfarin and beta-sara at home Respiratory - CT chest 11/06/2024 personally reviewed: Centrilobular and paraseptal emphysema appreciated bilaterally Motion degraded study Patchy opacities appreciated in the right middle and right lower as well as left lower lobe Cardiomegaly No significant mediastinal lymphadenopathy --Acute hypoxic respiratory failure Likely secondary to multilobar pneumonia from influenza A, cannot rule out bacterial superinfection Tamiflu as able Suction PRN. Encourage deep breathing and expectoration of secretions. --COPD with emphysema Not on any inhalers at home Consider discharging the patient on either Spiriva or Incruse GI - No acute issues RENAL/LYTES - -- SARWAT Likely from hypotension Monitor BUN/creatinine Avoid nephrotoxic medications Strict ins and outs ENDO - -- Chronic steroid dependence On prednisone 5 mg twice daily Stress dose hydrocortisone started for the patient -- ICU hypoglycemia protocol Last A1c 9.6% (2022) HEME - -- Chronic anticoagulation Warfarin dose adjusted per INR ID - -- Multilobar pneumonia Continue Zosyn given aspiration event Stop Vancomycin as MRSA negative BC x2 negative to date Procalcitonin 0.84, UA negative. Flu A + --DNR/DNI --Prophylaxis VTE: Warfarin GI:Pantoprazole Lines: Peripheral, Carreno Diet: N.p.o. Plan: In/out: +5.2 L, urine output 247 DC right femoral as well as radial line. Patient off vasopressors. Out of the bed to chair. Decrease hydrocortisone to 3 times daily for 2 days followed by twice daily for 2 days and then resume 5 mg prednisone twice daily Adjust warfarin dose for the kidney function. Doxycycline will be added for atypical coverage. Will consider discontinuing Zosyn tomorrow if the cultures are negative. Bedside swallow eval, if he passes then clear liquid and advance as tolerated Continue with incentive spirometry and flutter valve Patient's creatinine is still trending up. His urine output has picked up. Hold CLYDE inhibitor I have personally spent 36 minutes of critical care time in the direct management of this patient. This is a life/limb threatening event. This includes time spent evaluating patient, direct bedside care, chart review, placing orders, interpretation of diagnostic studies, discussion with consultants, patient, and family members, as well as other required patient management activities. This time is exclusive of all separately billable procedures, and teaching time and separate from and in addition to any other critical care service time. Thank you for allowing us to participate in the care of this patient. Please refer to my attending physician's documentation for any further recommendations. Admission and Anticipated Discharge Date Admission Date: November 06, 2024 Subjective Patient seen and examined at bedside. No acute distress, no adverse events overnight He was saturating 96% on 6 L, went down to 4 L nasal cannula He stated that he is feeling better compared to when he was at home Denied any headache, no nausea or vomiting Wanted to see if he can eat something. Denies any difficulty swallowing Has been off vasopressors as of 5 AM today Review of Systems 2 Review of Systems: All systems reviewed & are unremarkable except as noted in Subjective Physical Exam 2 Physical Exam: Constitutional: No acute distress HEENT: EOMI, PERRLA Respiratory system: Decreased air entry bilaterally, no wheeze, no rhonchi, positive crackles bilateral lower lobes CVS: S1-S2 positive, no murmurs or gallops Abdomen: Soft, nontender, nondistended, positive bowel sounds x4, obese Extremities: +2 pulses bilaterally radialis/ dorsalis pedis, no cyanosis, minimal pitting edema bilateral lower extremity Neuro: Awake alert oriented x3 Psych: Normal mood and affect G/U: Positive Carreno Skin: no rashes, warm and dry Lymphatic: no cervical or axillary lymphadenopathy Results & Data Results & Data Vital Signs (Past 12 Hours) Vital Signs Temp Pulse Pulse Resp BP Pulse Ox O2 Del Method 11/07/24 07:22 99 H 18 96 Nasal Cannula 11/07/24 06:29 94 H 20 99 High Flow Nasal Cannula 11/07/24 06:00 110/62 11/07/24 05:39 36.9 C 89 0 L 98 11/07/24 05:06 36.9 C 78 0 L 103/67 99 11/07/24 04:45 36.9 C 83 0 L 99 11/07/24 04:00 36.9 C 91 H 0 L 134/69 97 11/07/24 03:13 85 25 H 97 High Flow Nasal Cannula 11/07/24 03:00 37.0 C 89 30 H 96 11/07/24 02:06 37.2 C 88 25 H 114/70 100 11/07/24 01:42 37.3 C 91 H 27 H 100 11/07/24 01:06 37.1 C 91 H 25 H 99 11/07/24 01:02 105/58 L 11/07/24 00:57 37.3 C 94 H 18 99 11/07/24 00:00 135/56 L 11/07/24 00:00 37.5 C 103 H 25 H 100 11/06/24 23:03 37.5 C 95 H 27 H 112/70 100 11/06/24 22:57 37.5 C 95 H 25 H 99 11/06/24 22:45 37.5 C 96 H 27 H 123/74 98 11/06/24 22:34 94 H 26 H 97 High Flow Nasal Cannula 11/06/24 22:33 37.5 C 92 H 29 H 119/61 98 11/06/24 22:24 37.5 C 93 H 27 H 99 11/06/24 22:15 103/49 L 11/06/24 22:03 37.6 C H 93 H 21 98 11/06/24 22:00 83/53 L 11/06/24 22:00 83/53 L 11/06/24 22:00 83/53 L 11/06/24 22:00 37.7 C H 88 20 98 11/06/24 21:57 95/47 L 11/06/24 21:48 37.7 C H 94 H 25 H 99 11/06/24 21:45 37.7 C H 94 H 24 99 11/06/24 21:45 90/67 L 11/06/24 21:45 90/67 L 11/06/24 21:30 82/61 L 11/06/24 21:30 82/61 L 11/06/24 21:30 37.8 C H 94 H 30 H 99 11/06/24 21:18 37.9 C H 85 28 H 99 11/06/24 21:16 97/63 L 11/06/24 21:16 97/63 L 11/06/24 21:12 37.9 C H 89 26 H 99 11/06/24 21:00 38.0 C H 93 H 14 97 11/06/24 21:00 80/57 L 11/06/24 20:57 38.1 C H 95 H 32 H 97 11/06/24 20:33 38.4 C H 98 H 25 H 99 11/06/24 20:30 83/55 L 11/06/24 20:15 86/58 L 11/06/24 20:03 38.8 C H 94 H 34 H 99 11/06/24 20:00 38.9 C H 95 H 29 H 91/51 L 98 11/06/24 19:57 38.9 C H 96 H 28 H 82/61 L 99 11/06/24 19:51 100 H 29 H 96 High Flow Nasal Cannula 11/06/24 19:48 39.0 C H 93 H 20 78/53 L 100 11/06/24 19:30 39.3 C H 112 H 34 H 89/56 L 100 O2 Flow Rate FiO2 11/07/24 07:22 6 11/07/24 06:29 45 55 11/07/24 06:00 11/07/24 05:39 11/07/24 05:06 11/07/24 04:45 11/07/24 04:00 11/07/24 03:13 45 65 11/07/24 03:00 11/07/24 02:06 11/07/24 01:42 11/07/24 01:06 11/07/24 01:02 11/07/24 00:57 11/07/24 00:00 11/07/24 00:00 11/06/24 23:03 11/06/24 22:57 11/06/24 22:45 11/06/24 22:34 45 70 11/06/24 22:33 11/06/24 22:24 11/06/24 22:15 11/06/24 22:03 11/06/24 22:00 11/06/24 22:00 11/06/24 22:00 11/06/24 22:00 11/06/24 21:57 11/06/24 21:48 11/06/24 21:45 11/06/24 21:45 11/06/24 21:45 11/06/24 21:30 11/06/24 21:30 11/06/24 21:30 11/06/24 21:18 11/06/24 21:16 11/06/24 21:16 11/06/24 21:12 11/06/24 21:00 11/06/24 21:00 11/06/24 20:57 11/06/24 20:33 11/06/24 20:30 11/06/24 20:15 11/06/24 20:03 11/06/24 20:00 11/06/24 19:57 11/06/24 19:51 45 75 11/06/24 19:48 11/06/24 19:30 Laboratory Results 11/07/24 04:45 11/07/24 04:45 Coding Level of Care Code 31767 CRITICAL CARE 1ST 30-74M Diagnoses Acute respiratory failure with hypoxia J96.01 Shock R57.9 Aspiration pneumonitis J69.0 Acute metabolic encephalopathy G93.41 Atrial fibrillation with rapid ventricular response I48.91 Acute kidney injury N17.9 Lactic acidosis E87.20 Demand ischemia I24.89 Sepsis A41.9
[2024-11-07] MEDS: DOXYCYCLINE HYCLATE 100 MG CAP PO SCH (09:16)
[2024-11-07] MEDS: guaiFENesin 600 MG TABCR PO SCH (09:16)
[2024-11-07] MEDS: CHOLECALCIFEROL 25 MCG (1000 UNITS) TAB PO SCH (09:16)
[2024-11-07] MEDS: PANTOprazole 40 MG TAB PO SCH (09:16)
[2024-11-07] MEDS ORDERED: VANCOMYCIN HCL 1,250 MG in SODIUM CHLORIDE 0.9% 250 ML IV SCH (10:00)
[2024-11-07] MEDS: OSELTAMIVIR PHOSPHATE SUSP 30 MG/5 ML UDP PO SCH (10:16)
--- NOTE | 2024-11-07 11:34 | Pharmacy Report ---
Pharmacy Glycemic Short Note 2 - Date of Service November 07, 2024 - Glycemic Short BSG Results (Last 24 hours): 11/06/24 11/06/24 11/06/24 14:29 16:26 20:11 Glucose POC Glucose 109 H 98 85 11/06/24 11/06/24 11/07/24 22:19 23:38 04:05 Glucose 96 POC Glucose 87 126 H 11/07/24 11/07/24 11/07/24 04:45 07:07 11:15 Glucose 174 H POC Glucose 155 H 161 H OUTPATIENT ANTIDIABETIC REGIMEN: * Metformin 1 g PO BIDM * Glipizide 20 mg PO qAM, 10 mg PO qPM * Trulicity 4.5 mg SC weekly HbA1c: 8.1% (11/07/24) ASSESSMENT: 11/07: * Mr. Mcpherson received no insulin in the hospital last night. BSGs were 109-85-87 mg/dL. * Fasting BSG was 155 mg/dL this AM. Basal insulin initially held off on due to NPO status but patient is now tolerating a T2DM diet so will add a one time basal dose with lunch. * Steroids on board in the form of IV Hydrocortisone 50 mg TID. This will be tapered to home prednisone dose over the next 96 hours. In the meantime, will tighten both CF and CR given addition of diet. Continues on Zosyn. 11/06: * RR is an 78 year old male who presented to ED via EMS after being found barely responsive in bed this morning (concern for aspiration event) * Initiated on broad spectrum antibiotics for sepsis secondary to possible aspiration pneumonia (vancomycin and Zosyn). Also started on Tamiflu for influenza. * Hyperglycemic on presentation (BSG of 295 mg/dL), but improved to 109 mg/dL on admission with IV fluid boluses (~3000 mL) only * NPO at this time given aspiration risk - will hold off on basal insulin at this time * Continuing on outpatient prednisone 5 mg PO BID * Prior inpatient glycemic data influenced by IV steroids PLAN FOR INPATIENT GLYCEMIC CONTROL: * Hold outpatient oral diabetes medications * Basal insulin * Lantus 10 units SC x 1 now stat * Reassess basal in AM * Bolus insulin * NovoLog per scale ACHS or Q6hrs while NPO * Goal Range: Low 110 mg/dL - High 140 mg/dL * Correction Factor: 25 mg/dL/unit * Nutritional / Prandial insulin per carb ratio of 1 unit per 8 grams CHO consumed
--- NOTE | 2024-11-07 11:43 | Electrocardiogram Report ---
Test Reason : Blood Pressure : */* mmHG Vent. Rate : 86 BPM Atrial Rate : * BPM P-R Int : * ms QRS Dur : 88 ms QT Int : 380 ms P-R-T Axes : * -6 1 degrees QTcB Int : 454 ms Atrial fibrillation Inferior infarct , age undetermined Abnormal ECG When compared with ECG of 06-Nov-2024 08:42, Inferior infarct is now Present T wave inversion now evident in Inferior leads Confirmed by Angel Rey ([id number]) on 11/07/2024 11:42:42 AM Referred By: REFERRED SELF Confirmed By: Angel Rey
[2024-11-07] MEDS: LANTUS PER UNIT CHARGE SC STA (11:55)
[2024-11-07] MEDS: INSULIN ASPART PER UNIT CHARGE SC SCH (11:56)
--- NOTE | 2024-11-07 14:36 | Hospitalist Progress Note ---
Date of Service November 07, 2024 Assessment & Plan (1) Vomiting: (2) AMS (altered mental status): (3) Pulmonary edema: (4) Chronic steroid use: (5) Polymyalgia rheumatica: (6) HTN, goal below 140/90: (7) Diabetes mellitus, type 2: (8) Hyperlipidemia: (9) Hypertension: (10) Permanent atrial fibrillation: Plan The patient is an 78-year-old male with a past medical history of A-fib on Coumadin, depression, HLD, DM2, PMR who presents to the ED on 11/06/2024 with complaints of flulike symptoms, found to be positive for flu A, suspicion for aspiration pneumonia and acute hypoxic respiratory failure Assessment and plan: Acute hypoxic respiratory failure COPD exacerbation Influenza A suspected aspiration pneumonia Found to be 77% on room air by EMS, patient's reports vomiting suspicious for aspiration Oxygen improved on 13 L, continue IV Vanco/Zosyn for aspiration pneumonia Found to be positive for influenza A, continue Tamiflu, originally hypotensive on arrival Blood pressure improved with sepsis fluids, lactic acid slowly improving, 5.7 on arrival Continue IV fluids and telemetry monitoring 11/07 currently on 6 L NC continue Zosyn, Tamiflu Hydrocortisone IV Mucinex Nebs q6h obtain sputum culture Septic shock Secondary to above Adrenal insufficiency Off Levophed and vasopressors On IV hydrocortisone Monitor blood pressure closely Acute kidney injury on CKD IV Creatinine 2.6 Currently 2.7 Likely from sepsis, hypotension Monitor closely Acute metabolic encephalopathy secondary to above Resolved Elevated troponin: Likely secondary to hypoxia and demand ischemia with recent viral illness No acute EKG changes/chest pain, continue to monitor Hx DM2: On Trulicity/glipizide/metformin at home, hold p.o. medications SSI/glycemic pharmacy consult, 4 times daily BGM Hx AF: Continue home metoprolol and warfarin Patient is a DNR/DNI DVT prophylaxis: Warfarin Admission and Anticipated Discharge Date Admission Date: November 06, 2024 Subjective ff up for septic shock etc seen resting in bed, comfortable, on 6L NC states he feels better compared to yesterday but still weak reports breathing is still a little short, with productive cough no chest pain, palpitations, dizziness no nausea, abdominal pain Review of Systems Review of Systems: all noted and negative except for above Results & Data Results & Data Vital Signs (Past 12 Hours) Vital Signs Temp Pulse Pulse Resp BP Pulse Ox O2 Del Method 11/07/24 08:00 87 11/07/24 08:00 145/78 H 11/07/24 08:00 36.5 C 87 22 95 High Flow Nasal Cannula 11/07/24 08:00 High Flow Nasal Cannula 11/07/24 07:22 99 H 18 96 Nasal Cannula 11/07/24 07:06 36.6 C 88 99 11/07/24 06:29 94 H 20 99 High Flow Nasal Cannula 11/07/24 06:00 110/62 11/07/24 05:39 36.9 C 89 0 L 98 11/07/24 05:06 36.9 C 78 0 L 103/67 99 11/07/24 04:45 36.9 C 83 0 L 99 11/07/24 04:00 36.9 C 91 H 0 L 134/69 97 11/07/24 03:13 85 25 H 97 High Flow Nasal Cannula 11/07/24 03:00 37.0 C 89 30 H 96 O2 Flow Rate FiO2 11/07/24 08:00 11/07/24 08:00 11/07/24 08:00 6 11/07/24 08:00 6 11/07/24 07:22 6 11/07/24 07:06 11/07/24 06:29 45 55 11/07/24 06:00 11/07/24 05:39 11/07/24 05:06 11/07/24 04:45 11/07/24 04:00 11/07/24 03:13 45 65 11/07/24 03:00 all noted and reviewed including below
[2024-11-07] MEDS: HYDROCORTISONE SOD 50 MG in SYRINGE 0 ML IV SCH (14:52)
[2024-11-07] MEDS ORDERED: WARFARIN SOD 5 MG TAB PO SCH (16:00)
[2024-11-07] MEDS: LEVALBUTEROL 1.25 MG/3 ML NEB NEB SCH (20:22)
[2024-11-07] MEDS: IPRATROPIUM BROMIDE NEB SOLN 0.02% 0.5MG/2.5ML VIAL NEB SCH (20:22)
[2024-11-08 06:13] LABS: Hematocrit (blood only) 31.8 % (42.0-52.0); Hemoglobin 10.5 g/dl (14.0-18.0); Mean Corpuscular Volume 87.8 fL (80.0-100.0); Mean Platelet Volume 11.1 fL (9.4-12.4); Platelet Count 133 K/uL (130-400); RDW Coefficient of Variation 14.3 % (11.5-14.5); Red Blood Count 3.62 M/uL (4.70-6.10); White Blood Count 11.07 K/ul (4.8-10.8)
[2024-11-08 06:29] LABS: BUN Creatinine Ratio 14.6 (10-20); Creatinine Clr Calc Pharmacy 26.3 ml/min; Potassium 3.9 mmol/L (3.5-5.1)
[2024-11-08 06:39] LABS: INR 4.2 (0.9-1.1); Prothrombin Time 40.4 Seconds (9.0-12.0)
[2024-11-08 06:43] LABS: Basophils # (auto) 0.01 K/uL (0.00-0.20); Basophils % (auto) 0.1 %; Echinocytes 3+; Immature Granulocytes # (auto) 0.07 K/uL (0.01-0.20); Immature Granulocytes % (auto) 0.6 %; Lymphocytes # (auto) 0.24 K/uL (1.20-3.40); Lymphocytes % (auto) 2.2 %; Monocytes # (auto) 0.56 K/uL (0.11-0.59); Monocytes % (auto) 5.1 %; Neutrophils # (auto) 10.19 K/uL (1.40-6.50); Polychromasia 1+
--- NOTE | 2024-11-08 08:05 | Pulmonology Progress Note ---
Date of Service November 08, 2024 Assessment & Plan (1) Acute respiratory failure with hypoxia: (2) Shock: (3) Aspiration pneumonitis: (4) Acute metabolic encephalopathy: (5) Atrial fibrillation with rapid ventricular response: (6) Acute kidney injury: (7) Lactic acidosis: (8) Demand ischemia: (9) Sepsis: Plan 78-year-old male admitted to the hospital for hypoxic respiratory failure and hypotension Past medical history: PMR on 10 mg prednisone a daily basis, A-fib on warfarin, hypertension, dyslipidemia, COPD Respiratory - CT chest 11/06/2024 personally reviewed: Centrilobular and paraseptal emphysema appreciated bilaterally Motion degraded study Patchy opacities appreciated in the right middle and right lower as well as left lower lobe Cardiomegaly No significant mediastinal lymphadenopathy --Acute hypoxic respiratory failure Likely secondary to multilobar pneumonia from influenza A, cannot rule out bacterial superinfection Tamiflu as able Suction PRN. Encourage deep breathing and expectoration of secretions. --COPD with emphysema Not on any inhalers at home Consider discharging the patient on either Anoro or Stiolto -- Multilobar pneumonia Continue Zosyn given aspiration event Stop Vancomycin as MRSA negative BC x2 negative to date Procalcitonin 0.84, UA negative influenza A positive --History of A-fib On warfarin and beta-sara at home Plan: In/out: -1.9 L, urine output 2475 Given the diffuse expiratory wheeze bilaterally. I will start the patient on budesonide and Brovana nebulized He is already on hydrocortisone tapering dose. Continue with doxycycline Continue with incentive spirometry and flutter valve Case was discussed with RN at bedside Please note the above document was generated using voice recognition software. It may contain grammatical, syntax or spelling errors.Any formal questions or concerns about the content, text or information contained within the body of this dictation should be directly addressed to the provider for clarification. Admission and Anticipated Discharge Date Admission Date: November 06, 2024 Subjective Patient seen and examined at bedside. No acute distress, no adverse events overnight Saturating 97% on 2 L, I went down to 1 L He stated that he is feeling better. But is significantly lethargic Able to tolerate diet, no nausea vomiting Denied any chest pain, no abdominal pain Shortness of breath is better than before Review of Systems 2 Review of Systems: All systems reviewed & are unremarkable except as noted in Subjective Physical Exam 2 Physical Exam: Constitutional: No acute distress HEENT: EOMI, PERRLA, hard to hear Respiratory system: Decreased air entry bilaterally, diffuse expiratory wheeze bilaterally, no rhonchi, positive crackles bilateral lower lobes CVS: S1-S2 positive, no murmurs or gallops Abdomen: Soft, nontender, nondistended, positive bowel sounds x4, obese Extremities: +2 pulses bilaterally radialis/ dorsalis pedis, no cyanosis, m inimal pitting edema bilateral lower extremity Neuro: Awake alert oriented x3 Psych: Normal mood and affect G/U: Positive Carreno Skin: no rashes, warm and dry Lymphatic: no cervical or axillary lymphadenopathy Results & Data Results & Data Vital Signs (Past 12 Hours) Vital Signs Temp Pulse Pulse Resp BP Pulse Ox O2 Del Method 11/08/24 07:57 36.4 C L 120 H 20 153/71 H 100 Nasal Cannula, Oxymask 11/08/24 07:43 111 H 20 97 Nasal Cannula 11/08/24 07:17 127 H 11/08/24 04:32 36.5 C 93 H 18 120/75 96 Nasal Cannula 11/08/24 00:33 18 97 Nasal Cannula 11/08/24 00:05 36.4 C L 109 H 18 112/61 93 Nasal Cannula 11/07/24 22:15 High Flow Nasal Cannula 11/07/24 20:25 100 H 20 96 Nasal Cannula O2 Flow Rate 11/08/24 07:57 2 11/08/24 07:43 4 11/08/24 07:17 11/08/24 04:32 4 11/08/24 00:33 4 11/08/24 00:05 4 11/07/24 22:15 4 11/07/24 20:25 4 Laboratory Results 11/08/24 05:52 11/08/24 05:52 PG Care Time/CCT Total # of Minutes Spent Total Time Spent with Patient: Total time spent is greater than 50% in coordination of care (as documented) at patient's floor/unit and/or counseling patient: Coding Level of Care Code 49284 SUB INP/OBS CARE 3/50MIN Diagnoses Acute respiratory failure with hypoxia J96.01 Shock R57.9 Aspiration pneumonitis J69.0 Acute metabolic encephalopathy G93.41 Atrial fibrillation with rapid ventricular response I48.91 Acute kidney injury N17.9 Lactic acidosis E87.20 Demand ischemia I24.89 Sepsis A41.9
[2024-11-08] MEDS: ADVANCED PROBIOTIC 625 MG CAPSULE PO SCH (09:06)
[2024-11-08] MEDS: METOPROLOL TARTRATE 25 MG TAB PO SCH (09:06)
[2024-11-08] MEDS: LANTUS PER UNIT CHARGE SC ONE (09:09)
--- NOTE | 2024-11-08 12:49 | Electrocardiogram Report ---
Test Reason : Blood Pressure : */* mmHG Vent. Rate : 109 BPM Atrial Rate : * BPM P-R Int : * ms QRS Dur : 94 ms QT Int : 368 ms P-R-T Axes : * 17 15 degrees QTcB Int : 495 ms Atrial fibrillation with rapid ventricular response QTcB >= 480 msec Abnormal ECG When compared with ECG of 07-Nov-2024 05:47, No significant change was found Confirmed by Angel Rey ([id number]) on 11/08/2024 12:49:23 PM Referred By: REFERRED SELF Confirmed By: Angel Rey
--- NOTE | 2024-11-08 13:39 | Pharmacy Report ---
Pharmacy Glycemic Short Note 2 - Date of Service November 08, 2024 - Glycemic Short BSG Results (Last 24 hours): 11/07/24 11/07/24 11/08/24 16:42 20:54 05:52 Glucose 191 H POC Glucose 205 H 251 H 11/08/24 11/08/24 07:54 12:21 Glucose POC Glucose 170 H 230 H OUTPATIENT ANTIDIABETIC REGIMEN: * Metformin 1 g PO BIDM * Glipizide 20 mg PO qAM, 10 mg PO qPM * Trulicity 4.5 mg SC weekly HbA1c: 8.1% (11/07/24) ASSESSMENT: 11/08: * BSGs elevated the last 24h: 730-836-126-230mg/dL. Received 10 units of basal and 20 units of bolus insulin yesterday. * Tolerating diet, continues on hydrocortisone 50mg IV TID (taper) and IV antibiotics. * Lantus 10 units X 1 again today. Will reassess basal tomorrow given hydrocortisone taper. Novolog tightened for improved prandial coverage. 11/07: * Mr. Mcpherson received no insulin in the hospital last night. BSGs were 109-85-87 mg/dL. * Fasting BSG was 155 mg/dL this AM. Basal insulin initially held off on due to NPO status but patient is now tolerating a T2DM diet so will add a one time basal dose with lunch. * Steroids on board in the form of IV Hydrocortisone 50 mg TID. This will be tapered to home prednisone dose over the next 96 hours. In the meantime, will tighten both CF and CR given addition of diet. Continues on Zosyn. 11/06: * RR is an 78 year old male who presented to ED via EMS after being found barely responsive in bed this morning (concern for aspiration event) * Initiated on broad spectrum antibiotics for sepsis secondary to possible aspiration pneumonia (vancomycin and Zosyn). Also started on Tamiflu for in fluenza. * Hyperglycemic on presentation (BSG of 295 mg/dL), but improved to 109 mg/dL on admission with IV fluid boluses (~3000 mL) only * NPO at this time given aspiration risk - will hold off on basal insulin at this time * Continuing on outpatient prednisone 5 mg PO BID * Prior inpatient glycemic data influenced by IV steroids PLAN FOR INPATIENT GLYCEMIC CONTROL: * Hold outpatient oral diabetes medications * Basal insulin * Lantus 10 units SC x 1 * Reassess basal in AM * Bolus insulin * NovoLog per scale ACHS or Q6hrs while NPO * Goal Range: Low 110 mg/dL - High 140 mg/dL * Correction Factor: 15 mg/dL/unit * Nutritional / Prandial insulin per carb ratio of 1 unit per 5 grams CHO consumed
--- NOTE | 2024-11-08 13:57 | Hospitalist Progress Note ---
Date of Service November 08, 2024 Assessment & Plan (1) Vomiting: (2) AMS (altered mental status): (3) Pulmonary edema: (4) Chronic steroid use: (5) Polymyalgia rheumatica: (6) HTN, goal below 140/90: (7) Diabetes mellitus, type 2: (8) Hyperlipidemia: (9) Hypertension: (10) Permanent atrial fibrillation: Plan Per admitting service notes with addendum: The patient is an 78-year-old male with a past medical history of A-fib on Coumadin, depression, HLD, DM2, PMR who presents to the ED on 11/06/2024 with complaints of flulike symptoms, found to be positive for flu A, suspicion for aspiration pneumonia and acute hypoxic respiratory failure Assessment and plan: Acute hypoxic respiratory failure COPD exacerbation Influenza A suspected aspiration pneumonia Found to be 77% on room air by EMS, patient's reports vomiting suspicious for aspiration Oxygen improved on 13 L, continue IV Vanco/Zosyn for aspiration pneumonia Found to be positive for influenza A, continue Tamiflu, originally hypotensive on arrival Blood pressure improved with sepsis fluids, lactic acid slowly improving, 5.7 on arrival Continue IV fluids and telemetry monitoring 11/07 currently on 6 L NC continue Zosyn, Tamiflu Hydrocortisone IV Mucinex Nebs q6h obtain sputum culture 11/08 Respiratory status gradually improving On 2 L of O2 via nasal cannula Sputum culture: Pending Continue Zosyn plus Tamiflu started on Perforomist and Pulmicort twice daily today Continue Xopenex/Atrovent every 6 hours On IV hydrocortisone 50 mg 3 times daily, taper Mucinex, incentive spirometry, flutter valve Speech therapy consulted: Easy to chew diet Septic shock Secondary to above Adrenal insufficiency Off Levophed and vasopressors On IV hydrocortisone taper Monitor blood pressure closely Resume usual prednisone dose once IV hydrocortisone taper has completed Acute kidney injury on CKD IV admission crea 1.3--> 2.7 Likely from sepsis, hypotension No signs of obstruction on CT abdomen pelvis Creatinine still 2.4 Fluid balance +3 L Carreno catheter in place Will consult nephrology service Acute metabolic encephalopathy secondary to above Resolved Elevated troponin: Likely secondary to hypoxia and demand ischemia with recent viral illness No acute EKG changes/chest pain, continue to monitor DM2: On Trulicity/glipizide/metformin at home, hold p.o. medications SSI/glycemic pharmacy consult, 4 times daily BGM Atrial fibrillation Was on metoprolol tartrate 50 mg twice daily at home, held for septic shock Currently heart rate in the 150s this morning, resume metoprolol to tartrate at 25 mg p.o. twice daily to prevent hypotension, monitor blood pressure If heart rate still uncontrolled, resume usual dose of 50 mg twice daily INR 4.2, hold Coumadin INR daily Polymyalgia rheumatica, on chronic prednisone Resume usual prednisone once IV hydrocortisone taper has completed Patient is a DNR/DNI DVT prophylaxis: Warfarin Admission and Anticipated Discharge Date Admission Date: November 06, 2024 Subjective Follow-up for septic shock secondary to pneumonia and influenza A infection, possible adrenal insufficiency, etc. Seen sitting up in bedside chair, just had breakfast, on 2 L of oxygen via cannula Noted to be in A-fib RVR via telemetry Denies active chest pain, shortness of breath, palpitations, dizziness Still feels weak, occasional cough No other new symptoms Review of Systems Review of Systems: all noted and negative except for above Physical Exam Physical Exam: General- oriented x 3, not in distress, speaks in sentences with no effort or accessory muscle use Eyes- anicteric Neck- no JVD Lungs- Faint wheeze bilateral bases, good air entry bilaterally Heart- normal rate, regular rhythm; no murmurs Abdomen- normal bowel sounds, nondistended, soft, nontender Extremities- no pretibial edema, no calf tenderness Neuro- alert, oriented x 3; no gross focal neurologic deficits Skin- warm & dry Results & Data Results & Data Vital Signs (Past 12 Hours) Vital Signs Temp Pulse Pulse Resp BP Pulse Ox O2 Del Method 11/08/24 11:47 36.2 C L 108 H 20 158/79 H 96 Nasal Cannula 11/08/24 07:57 36.4 C L 120 H 20 153/71 H 100 Nasal Cannula, Oxymask 11/08/24 07:43 111 H 20 97 Nasal Cannula 11/08/24 07:19 Nasal Cannula 11/08/24 07:17 127 H 11/08/24 04:32 36.5 C 93 H 18 120/75 96 Nasal Cannula O2 Flow Rate 11/08/24 11:47 1 11/08/24 07:57 2 11/08/24 07:43 4 11/08/24 07:19 11/08/24 07:17 11/08/24 04:32 4 all noted and reviewed including below
[2024-11-08] MEDS ORDERED: WARFARIN SOD 5 MG TAB PO SCH (16:00)
[2024-11-08] MEDS: PIPERACILLIN/TAZOBACTAM 4.5 GM/100 ML BAG IV ONE (16:17)
[2024-11-08] MEDS: FORMOTEROL 20 MCG/2 ML VIAL INH SCH (20:33)
[2024-11-08] MEDS: BUDESONIDE 0.5 MG/2 ML VIAL (PULMICORT) NEB SCH (20:33)
[2024-11-08] MEDS: PIPERACILLIN/TAZOBACTAM 4.5 GM/100 ML BAG IV SCH (22:31)
[2024-11-09] MEDS: ACETAMINOPHEN 500 MG TAB PO PRN (06:08)
[2024-11-09 06:41] LABS: Hematocrit (blood only) 29.7 % (42.0-52.0); Hemoglobin 10.1 g/dl (14.0-18.0); Mean Corpuscular Hemoglobin 29.3 pg (25.0-34.0); Mean Corpuscular Volume 86.1 fL (80.0-100.0); Mean Platelet Volume 11.2 fL (9.4-12.4); Platelet Count 119 K/uL (130-400); RDW Coefficient of Variation 14.2 % (11.5-14.5); RDW Standard Deviation 44.9 fL (36.4-46.3); Red Blood Count 3.45 M/uL (4.70-6.10); White Blood Count 9.18 K/ul (4.8-10.8)
[2024-11-09 06:54] LABS: BUN Creatinine Ratio 17.6 (10-20); Calcium 8.3 mg/dl (8.6-10.3); Creatinine Clr Calc Pharmacy 34.4 ml/min; Potassium 3.4 mmol/L (3.5-5.1)
[2024-11-09 07:14] LABS: Basophils # (auto) 0.01 K/uL (0.00-0.20); Basophils % (auto) 0.1 %; Echinocytes 2+; Eosinophils # (auto) 0.01 K/uL (0.00-0.50); Eosinophils % (auto) 0.1 %; Immature Granulocytes # (auto) 0.07 K/uL (0.01-0.20); Immature Granulocytes % (auto) 0.8 %; Lymphocytes # (auto) 0.34 K/uL (1.20-3.40); Lymphocytes % (auto) 3.7 %; Monocytes # (auto) 0.48 K/uL (0.11-0.59); Monocytes % (auto) 5.2 %; Neutrophils # (auto) 8.27 K/uL (1.40-6.50); Neutrophils % (auto) 90.1 %
[2024-11-09 07:18] LABS: INR 2.9 (0.9-1.1); Prothrombin Time 28.2 Seconds (9.0-12.0)
--- NOTE | 2024-11-09 08:24 | XRay Report ---
EXAM: XR chest 1V portable CLINICAL HISTORY: Followup [facility] TECHNIQUE: X-ray image of the chest obtained in frontal projection. COMPARISON: Prior X-ray dated 11/06/2024 for comparison. FINDINGS: Pulmonary Parenchyma: Mild interval resolution of air space opacities in bilateral lower lung zones. Prominent bilateral parahilar markings. Mild blunting of bilateral CP angles likely pleural thickening/effusion. Heart and Mediastinum: Cardiomegaly. No mediastinal widening or masses. No hilar or mediastinal lymphadenopathy. Bony Thorax: Spondylotic changes in thoracic spine. Bony thorax appears intact without fractures or deformities. Soft Tissues: Soft tissues overlying the chest wall are unremarkable. IMPRESSION: 1. Cardiomegaly. 2. Mild interval resolution of air space opacities in bilateral lower lung zones. 3. Prominent bilateral parahilar markings. 4. Mild blunting of bilateral CP angles likely pleural thickening/effusion. Electronically signed by Mae Nixon 11-09-2024 08:23 AM
[2024-11-09] MEDS: HYDROCORTISONE SOD 50 MG in SYRINGE 0 ML IV SCH (08:25)
--- NOTE | 2024-11-09 08:55 | Pulmonology Progress Note ---
Date of Service November 09, 2024 Assessment & Plan (1) Acute respiratory failure with hypoxia: (2) Aspiration pneumonitis: (3) Atrial fibrillation with rapid ventricular response: Plan 78-year-old male admitted to the hospital for hypoxic respiratory failure and hypotension Past medical history: PMR on 10 mg prednisone a daily basis, A-fib on warfarin, hypertension, dyslipidemia, COPD CT chest 11/06/2024 personally reviewed: Centrilobular and paraseptal emphysema appreciated bilaterally Motion degraded study Patchy opacities appreciated in the right middle and right lower as well as left lower lobe Cardiomegaly No significant mediastinal lymphadenopathy --Acute hypoxic respiratory failure --> resolved Likely secondary to multilobar pneumonia from influenza A, cannot rule out bacterial superinfection Tamiflu as able Suction PRN. Encourage deep breathing and expectoration of secretions. --COPD with emphysema Not on any inhalers at home Consider discharging the patient on either Anoro or Stiolto -- Multilobar pneumonia Continue Zosyn given aspiration event Stop Vancomycin as MRSA negative BC x2 negative to date Procalcitonin 0.84, UA negative influenza A positive --History of A-fib On warfarin and beta-sara at home Plan: In/out: -1.9 L, urine output 2475 Chest x-ray from today shows improvement in the alveolar opacities in the right lower as well as left lower lobe. Retrocardiac opacity still persist. Continue with nebulized budesonide and Perforomist Complete the course of doxycycline Continue with incentive spirometry and flutter valve Recommend discontinuing Carreno catheter Case was discussed with RN at bedside Please note the above document was generated using voice recognition software. It may contain grammatical, syntax or spelling errors.Any formal questions or concerns about the content, text or information contained within the body of this dictation should be directly addressed to the provider for clarification. Admission and Anticipated Discharge Date Admission Date: November 06, 2024 Subjective Patient seen and examined at bedside. No acute distress, no adverse events overnight He was saturating 95% room air. He was sitting on the chair. Denied any headache, no nausea, no vomiting Overall he is saying he is feeling much better. Review of Systems 2 Review of Systems: All systems reviewed & are unremarkable except as noted in Subjective Physical Exam 2 Physical Exam: Constitutional: No acute distress HEENT: EOMI, PERRLA, hard to hear Respiratory system: Decreased air entry bilaterally, no wheeze, minimal rhonchi bilaterally, positive crackles bilateral lower lobes CVS: S1-S2 positive, no murmurs or gallops Abdomen: Soft, nontender, nondistended, positive bowel sounds x4, obese Extremities: +2 pulses bilaterally radialis/ dorsalis pedis, no cyanosis, no edema Neuro: Awake alert oriented x3 Psych: Normal mood and affect G/U: Positive Carreno Skin: no rashes, warm and dry Lymphatic: no cervical or axillary lymphadenopathy Results & Data Results & Data Vital Signs (Past 12 Hours) Vital Signs Temp Pulse Resp BP BP Pulse Ox O2 Del Method 11/09/24 07:52 36.2 C L 110 H 22 178/98 H 95 Room Air 11/09/24 07:16 Room Air 11/09/24 06:49 100 H 18 93 Room Air 11/09/24 06:05 147/83 H 94 Room Air 11/09/24 03:32 36.4 C L 117 H 20 117/83 92 Room Air 11/09/24 03:26 Room Air 11/09/24 01:46 109 H 18 93 Room Air 11/08/24 22:57 36.4 C L 108 H 18 173/94 H 94 Room Air Laboratory Results 11/09/24 05:54 11/09/24 05:54 PG Care Time/CCT Total # of Minutes Spent Total Time Spent with Patient: Total time spent is greater than 50% in coordination of care (as documented) at patient's floor/unit and/or counseling patient: Coding Level of Care Code 80367 SUB INP/OBS CARE 2/35MIN Diagnoses Acute respiratory failure with hypoxia J96.01 Aspiration pneumonitis J69.0 Atrial fibrillation with rapid ventricular response I48.91
[2024-11-09] MEDS ORDERED: LANTUS PER UNIT CHARGE SC SCH (09:00)
--- NOTE | 2024-11-09 10:22 | Hospitalist Progress Note ---
Date of Service November 09, 2024 Assessment & Plan (1) Vomiting: (2) AMS (altered mental status): (3) Pulmonary edema: (4) Chronic steroid use: (5) Polymyalgia rheumatica: (6) HTN, goal below 140/90: (7) Diabetes mellitus, type 2: (8) Hyperlipidemia: (9) Hypertension: (10) Permanent atrial fibrillation: Plan Per admitting service notes with addendum: The patient is an 78-year-old male with a past medical history of A-fib on Coumadin, depression, HLD, DM2, PMR who presents to the ED on 11/06/2024 with complaints of flulike symptoms, found to be positive for flu A, suspicion for aspiration pneumonia and acute hypoxic respiratory failure Assessment and plan: Acute hypoxic respiratory failure COPD exacerbation Influenza A suspected aspiration pneumonia Found to be 77% on room air by EMS, patient's reports vomiting suspicious for aspiration Oxygen improved on 13 L, continue IV Vanco/Zosyn for aspiration pneumonia Found to be positive for influenza A, continue Tamiflu, originally hypotensive on arrival Blood pressure improved with sepsis fluids, lactic acid slowly improving, 5.7 on arrival Continue IV fluids and telemetry monitoring 11/07 currently on 6 L NC continue Zosyn, Tamiflu Hydrocortisone IV Mucinex Nebs q6h obtain sputum culture 11/08 Respiratory status gradually improving On 2 L of O2 via nasal cannula Sputum culture: Pending Continue Zosyn plus Tamiflu started on Perforomist and Pulmicort twice daily today Continue Xopenex/Atrovent every 6 hours On IV hydrocortisone 50 mg 3 times daily, taper -> change to BID Mucinex, incentive spirometry, flutter valve Pulmonology following closely Speech therapy consulted: Easy to chew diet Septic shock Secondary to above Adrenal insufficiency Off Levophed and vasopressors On IV hydrocortisone taper Monitor blood pressure closely Resume usual prednisone dose once IV hydrocortisone taper has completed Acute kidney injury on CKD IV admission crea 1.3--> 2.7 ->1.8 Likely from sepsis, hypotension No signs of obstruction on CT abdomen pelvis Creatinine still 2.4 Fluid balance +3 L Carreno catheter in place Consider consulting nephrology service if w/o improvement Cr now down to 1.8 Acute metabolic encephalopathy secondary to above Resolved Elevated troponin: Likely secondary to hypoxia and demand ischemia with recent viral illness No acute EKG changes/chest pain, continue to monitor DM2: On Trulicity/glipizide/metformin at home, hold p.o. medications SSI/glycemic pharmacy consult, 4 times daily BGM Atrial fibrillation Was on metoprolol tartrate 50 mg twice daily at home, held for septic shock heart rate in the 150s, resume metoprolol to tartrate at 25 mg p.o. twice daily to prevent hypotension, monitor blood pressure If heart rate still uncontrolled, resume usual dose of 50 mg twice daily INR 4.2, hold Coumadin INR daily Polymyalgia rheumatica, on chronic prednisone Resume usual prednisone once IV hydrocortisone taper has completed Patient is a DNR/DNI DVT prophylaxis: Warfarin Admission and Anticipated Discharge Date Admission Date: November 06, 2024 Subjective Follow-up for septic shock secondary to pneumonia and influenza A infection, possible adrenal insufficiency, etc. Sitting up in bed in NAD, granddaughter visiting at the bedside Denies chest pain, shortness of breath, palpitations, dizziness Still feels weak, occasional cough No other new symptoms Review of Systems Review of Systems: All systems reviewed & are unremarkable except as noted in Subjective Physical Exam Physical Exam: General- oriented x 3, not in distress, speaks in sentences with no effort or accessory muscle use Eyes- anicteric Neck- no JVD Lungs- mild rhonchi, crackles Heart- normal rate, regular rhythm; no murmurs Abdomen- normal bowel sounds, nondistended, soft, nontender Extremities- no pretibial edema, no calf tenderness Neuro- alert, oriented x 3; no gross focal neurologic deficits Skin- warm & dry Results & Data Results & Data Vital Signs (Past 12 Hours) Vital Signs Temp Pulse Pulse Resp BP BP Pulse Ox 11/09/24 08:00 100 H 11/09/24 07:52 36.2 C L 110 H 22 178/98 H 95 11/09/24 07:16 11/09/24 06:49 100 H 18 93 11/09/24 06:05 147/83 H 94 11/09/24 03:32 36.4 C L 117 H 20 117/83 92 11/09/24 03:26 11/09/24 01:46 109 H 18 93 11/08/24 22:57 36.4 C L 108 H 18 173/94 H 94 O2 Del Method 11/09/24 08:00 11/09/24 07:52 Room Air 11/09/24 07:16 Room Air 11/09/24 06:49 Room Air 11/09/24 06:05 Room Air 11/09/24 03:32 Room Air 11/09/24 03:26 Room Air 11/09/24 01:46 Room Air 11/08/24 22:57 Room Air Laboratory Results 11/09/24 11/09/24 11/08/24 Range/Units 07:51 05:54 20:20 WBC 9.18 (4.8-10.8) K/ul RBC 3.45 L (4.70-6.10) M/uL Hgb 10.1 L (14.0-18.0) g/dl Hct 29.7 L (42.0-52.0) % MCV 86.1 (80.0-100.0) fL MCH 29.3 (25.0-34.0) pg MCHC 34.0 (32.0-36.0) g/dL RDW Std Deviation 44.9 (36.4-46.3) fL RDW Coeff of Roverto 14.2 (11.5-14.5) % Plt Count 119 L (130-400) K/uL MPV 11.2 (9.4-12.4) fL Immature Gran % (Auto) 0.8 % Neut % (Auto) 90.1 % Lymph % (Auto) 3.7 % [place] % (Auto) 5.2 % Eos % (Auto) 0.1 % Baso % (Auto) 0.1 % Neut # (Auto) 8.27 H (1.40-6.50) K/uL Lymph # (Auto) 0.34 L (1.20-3.40) K/uL [place] # (Auto) 0.48 (0.11-0.59) K/uL Eos # (Auto) 0.01 (0.00-0.50) K/uL Baso # (Auto) 0.01 (0.00-0.20) K/uL Immature Gran # (Auto) 0.07 (0.01-0.20) K/uL Echinocytes 2+ PT 28.2 H (9.0-12.0) Seconds INR 2.9 H (0.9-1.1) Sodium 140 (136-145) mmol/L Potassium 3.4 L (3.5-5.1) mmol/L Chloride 109 H (98-107) mmol/L Carbon Dioxide 23 (21-32) mmol/L Anion Gap 8 (3-11) BUN 33 H (6-23) mg/dl Creatinine 1.88 H D (0.6-1.4) mg/dl Est Cr Clr Drug Dosing 34.4 ml/min eGFR 35.67 BUN/Creatinine Ratio 17.6 (10-20) Glucose 123 H (70-99(Fasting)) mg/dl POC Glucose 118 H 266 H (70-99) mg/dl Calcium 8.3 L (8.6-10.3) mg/dl 11/08/24 11/08/24 Range/Units 16:57 12:21 WBC (4.8-10.8) K/ul RBC (4.70-6.10) M/uL Hgb (14.0-18.0) g/dl Hct (42.0-52.0) % MCV (80.0-100.0) fL MCH (25.0-34.0) pg MCHC (32.0-36.0) g/dL RDW Std Deviation (36.4-46.3) fL RDW Coeff of Roverto (11.5-14.5) % Plt Count (130-400) K/uL MPV (9.4-12.4) fL Immature Gran % (Auto) % Neut % (Auto) % Lymph % (Auto) % [place] % (Auto) % Eos % (Auto) % Baso % (Auto) % Neut # (Auto) (1.40-6.50) K/uL Lymph # (Auto) (1.20-3.40) K/uL [place] # (Auto) (0.11-0.59) K/uL Eos # (Auto) (0.00-0.50) K/uL Baso # (Auto) (0.00-0.20) K/uL Immature Gran # (Auto) (0.01-0.20) K/uL Echinocytes PT (9.0-12.0) Seconds INR (0.9-1.1) Sodium (136-145) mmol/L Potassium (3.5-5.1) mmol/L Chloride (98-107) mmol/L Carbon Dioxide (21-32) mmol/L Anion Gap (3-11) BUN (6-23) mg/dl Creatinine (0.6-1.4) mg/dl Est Cr Clr Drug Dosing ml/min eGFR BUN/Creatinine Ratio (10-20) Glucose (70-99(Fasting)) mg/dl POC Glucose 173 H 230 H (70-99) mg/dl Calcium (8.6-10.3) mg/dl Medications Administered Current Inpatient Medications Acetaminophen (Acetaminophen 500 Mg Tab) 500 mg PO Q6H PRN PRN Reason: fever/pain Stop: 12/09/24 05:59 Last Admin: 11/09/24 06:08 Dose: 500 mg Albuterol (Albut/Ipratrop 3mg/0.5mg Neb 3 Ml Vial) 3 ml NEB Q6R PRN; Protocol PRN Reason: Shortness Of Breath Or Wheezing Stop: 12/06/24 14:29 Budesonide (Budesonide 0.5 Mg/2 Ml Vial (Pulmicort)) 0.5 mg NEB BIDR COUNTS INCLUDE 234 BEDS AT THE [facility] Stop: 12/08/24 18:59 Last Admin: 11/09/24 06:49 Dose: 0.5 mg Dextrose (Dextrose 50% 50 Ml Syringe) 25 - 50 ml IV UD PRN; Protocol PRN Reason: Hypoglycemia Protocol Stop: 12/06/24 12:18 Doxycycline Hyclate (Doxycycline Hyclate 100 Mg Cap) 100 mg PO BID COUNTS INCLUDE 234 BEDS AT THE [facility] Stop: 11/12/24 08:59 Last Admin: 11/09/24 08:17 Dose: 100 mg Duloxetine HCl (Duloxetine Hcl 20 Mg Cap) 20 mg PO QPM COUNTS INCLUDE 234 BEDS AT THE [facility] Stop: 12/06/24 20:59 Last Admin: 11/08/24 22:27 Dose: 20 mg Formoterol Fumarate (Formoterol 20 Mcg/2 Ml Vial) 20 mcg INH BIDR COUNTS INCLUDE 234 BEDS AT THE [facility] Stop: 12/08/24 18:59 Last Admin: 11/09/24 06:49 Dose: 20 mcg Glucagon (Glucagon For Inj 1 Mg Vial) 1 mg SQ UD PRN; Protocol PRN Reason: Hypoglycemia Protocol Stop: 12/06/24 12:18 Glucose (Glucose 40% Gel 15 Gm Tube) 15 - 30 gm PO UD PRN; Protocol PRN Reason: Hypoglycemia Protocol Stop: 12/06/24 12:18 Glucose (Glucose 10 Tab/Tube) 4 - 8 tab PO UD PRN; Protocol PRN Reason: Hypoglycemia Protocol Stop: 12/06/24 12:18 Guaifenesin (Guaifenesin 600 Mg Tabcr) 600 mg PO Q12 [facility] Stop: 12/07/24 08:59 Last Admin: 11/09/24 08:17 Dose: 600 mg Heparin Sodium (Beef Lung) (Heparin 10 Unit/Ml 5 Ml Flush) 5 ml FLUSH PRN PRN PRN Reason: Flush Stop: 12/07/24 03:23 Acetaminophen (Ofirmev) 1,000 mg in 100 mls @ 400 mls/hr IV Q8H PRN PRN Reason: Pain or Fever Stop: 11/09/24 18:04 Last Infusion: 11/07/24 21:33 Dose: Infused Hydrocortisone Sodium (Succinate 50 mg/ Syringe) 1 mls @ 4 mls/min IV BID [facility] Stop: 11/10/24 21:01 Last Admin: 11/09/24 08:25 Dose: 4 mls/min Piperacillin Sod/Tazobactam Sod (Zosyn) 4.5 gm in 100 mls @ 25 mls/hr IV Q8H [facility]; Protocol Stop: 11/13/24 20:59 Last Infusion: 11/09/24 08:22 Dose: Infused Insulin Aspart (Insulin Aspart Per Unit Charge) 0 units SC ACHS [facility] Stop: 12/06/24 14:44 Last Admin: 11/09/24 08:24 Dose: 12 units Ipratropium [place] (Ipratropium [place] Neb Soln 0.02% 0.5mg/2.5ml Vial) 0.5 mg NEB Q6R [facility] Stop: 12/07/24 18:59 Last Admin: 11/09/24 06:49 Dose: 0.5 mg Lactobacillus Acidophilus (Advanced Probiotic 625 Mg Capsule) 1,250 mg PO DAILY [facility] Stop: 12/08/24 08:59 Last Admin: 11/09/24 08:17 Dose: 1,250 mg Levalbuterol HCl (Levalbuterol 1.25 Mg/3 Ml Neb) 1.25 mg NEB Q6R [facility] Stop: 12/07/24 18:59 Last Admin: 11/09/24 06:49 Dose: 1.25 mg Metoprolol Tartrate (Metoprolol Tartrate 25 Mg Tab) 25 mg PO BID [facility] Stop: 12/08/24 08:59 Last Admin: 11/09/24 08:17 Dose: 25 mg Miscellaneous (Carbohydrates For Hypoglycemia ) 15 - 30 gm PO UD PRN PRN Reason: Hypoglycemia Protocol Stop: 12/06/24 12:18 Miscellaneous Information (Pharmacy Glycemic Mgmt Consult) 1 each N/A UD PRN PRN Reason: Consult Stop: 12/06/24 12:18 Ondansetron HCl (Ondansetron Inj 2 Mg/Ml 2 Ml Vial) 4 mg IV Q6H PRN PRN Reason: Nausea And Vomiting Stop: 12/06/24 16:43 Oseltamivir Phosphate (Oseltamivir Phosphate Susp 30 Mg/5 Ml Udp) 30 mg PO DAILY COUNTS INCLUDE 234 BEDS AT THE [facility]; Protocol Stop: 11/10/24 09:01 Last Admin: 11/09/24 08:17 Dose: 30 mg Pantoprazole Sodium (Pantoprazole 40 Mg Tab) 40 mg PO QAM COUNTS INCLUDE 234 BEDS AT THE [facility] Stop: 12/07/24 08:59 Last Admin: 11/09/24 08:17 Dose: 40 mg Prednisone (Prednisone 5 Mg Tab) 5 mg PO BID COUNTS INCLUDE 234 BEDS AT THE [facility] Stop: 12/06/24 20:59 Vitamin D (Cholecalciferol 25 Mcg (1000 Units) Tab) 50 mcg PO QAM COUNTS INCLUDE 234 BEDS AT THE [facility] Stop: 12/07/24 08:59 Last Admin: 11/09/24 08:17 Dose: 50 mcg
[2024-11-09] MEDS: POTASSIUM CHLORIDE CRTAB 20 MEQ TABCR PO STA (10:41)
[2024-11-09 10:56] LABS: Magnesium 2.2 mg/dl (1.7-2.4)
[2024-11-09] MEDS: LANTUS PER UNIT CHARGE SC ONE (12:46)
--- NOTE | 2024-11-09 15:06 | Pharmacy Report ---
Pharmacy Glycemic Short Note 2 - Date of Service November 09, 2024 - Glycemic Short BSG Results (Last 24 hours): 11/08/24 11/08/24 11/09/24 16:57 20:20 05:54 Glucose 123 H POC Glucose 173 H 266 H 11/09/24 11/09/24 07:51 11:45 Glucose POC Glucose 118 H 186 H OUTPATIENT ANTIDIABETIC REGIMEN: * Metformin 1 g PO BIDM * Glipizide 20 mg PO qAM, 10 mg PO qPM * Trulicity 4.5 mg SC weekly HbA1c: 8.1% (11/07/24) ASSESSMENT: 11/09: * Mitchel received 47 units of SQ insulin yesterday (10 units basal + 37 units bolus) * Fasting BSG is trending down, 170 -> 118 mg/dL. Will decrease basal insulin 50% today and change to dose per scale starting 11/10 AM. * Post prandial BSGs improved following adjustment to Novolog CF and CR last evening. Will continue this for now. Hydrocortisone decreased from q8h to q12. May need to loosen parameters tomorrow based on post prandial trend. 11/08: * BSGs elevated the last 24h: [phone]/dL. Received 10 units of basal and 20 units of bolus insulin yesterday. * Tolerating diet, continues on hydrocortisone 50mg IV TID (taper) and IV antibiotics. * Lantus 10 units X 1 again today. Will reassess basal tomorrow given hydrocortisone taper. Novolog tightened for improved prandial coverage. 11/07: * Mr. Mcpherson received no insulin in the hospital last night. BSGs were 109-85-87 mg/dL. * Fasting BSG was 155 mg/dL this AM. Basal insulin initially held off on due to NPO status but patient is now tolerating a T2DM diet so will add a one time basal dose with lunch. * Steroids on board in the form of IV Hydrocortisone 50 mg TID. This will be tapered to home prednisone dose over the next 96 hours. In the meantime, will tighten both CF and CR given addition of diet. Continues on Zosyn. 11/06: * RR is an 78 year old male who presented to ED via EMS after being found barely responsive in bed this morning (concern for aspiration event) * Initiated on broad spectrum antibiotics for sepsis secondary to possible aspiration pneumonia (vancomycin and Zosyn). Also started on Tamiflu for influenza. * Hyperglycemic on presentation (BSG of 295 mg/dL), but improved to 109 mg/dL on admission with IV fluid boluses (~3000 mL) only * NPO at this time given aspiration risk - will hold off on basal insulin at this time * Continuing on outpatient prednisone 5 mg PO BID * Prior inpatient glycemic data influenced by IV steroids PLAN FOR INPATIENT GLYCEMIC CONTROL: * Hold outpatient oral diabetes medications * Basal insulin * Lantus 5 units SC today * Lantus 0-5-10 units SC qAM starting 11/10 * Bolus insulin * NovoLog per scale ACHS or Q6hrs while NPO * Goal Range: Low 110 mg/dL - High 140 mg/dL * Correction Factor: 15 mg/dL/unit * Nutritional / Prandial insulin per carb ratio of 1 unit per 5 grams CHO consumed
[2024-11-09] MEDS ORDERED: WARFARIN SOD 2.5 MG TAB PO SCH (16:00)
--- NOTE | 2024-11-10 07:56 | Hospitalist Progress Note ---
Date of Service November 10, 2024 Assessment & Plan (1) Vomiting: (2) AMS (altered mental status): (3) Pulmonary edema: (4) Chronic steroid use: (5) Polymyalgia rheumatica: (6) HTN, goal below 140/90: (7) Diabetes mellitus, type 2: (8) Hyperlipidemia: (9) Hypertension: (10) Permanent atrial fibrillation: Plan Per admitting service notes with addendum: The patient is an 78-year-old male with a past medical history of A-fib on Coumadin, depression, HLD, DM2, PMR who presents to the ED on 11/06/2024 with complaints of flulike symptoms, found to be positive for flu A, suspicion for aspiration pneumonia and acute hypoxic respiratory failure Assessment and plan: Acute hypoxic respiratory failure COPD exacerbation Influenza A suspected aspiration pneumonia Found to be 77% on room air by EMS, patient's reports vomiting suspicious for aspiration Oxygen improved on 13 L, continue IV Vanco/Zosyn for aspiration pneumonia Found to be positive for influenza A, continue Tamiflu, originally hypotensive on arrival Blood pressure improved with sepsis fluids, lactic acid slowly improving, 5.7 on arrival Continue IV fluids and telemetry monitoring 11/07 currently on 6 L NC continue Zosyn, Tamiflu Hydrocortisone IV Mucinex Nebs q6h obtain sputum culture 11/08 Respiratory status gradually improving On 2 L of O2 via nasal cannula Sputum culture: Pending Continue Zosyn plus Tamiflu started on Perforomist and Pulmicort twice daily today Continue Xopenex/Atrovent every 6 hours On IV hydrocortisone 50 mg 3 times daily, taper -> change to BID Mucinex, incentive spirometry, flutter valve Pulmonology following closely 11/10 Pt is on RA, saturating 94% Lung exam with some rhonchi crackles, + cough Feeling very tired HR elevated + nausea/vomiting Speech therapy consulted: Easy to chew diet Septic shock Secondary to above Adrenal insufficiency Off Levophed and vasopressors On IV hydrocortisone taper Monitor blood pressure closely Resume usual prednisone dose once IV hydrocortisone taper has completed Acute kidney injury on CKD IV admission crea 1.3--> 2.7 ->1.8 Likely from sepsis, hypotension No signs of obstruction on CT abdomen pelvis Fluid balance +3 L Carreno catheter in place Consider consulting nephrology service if w/o improvement Cr now down to 1.7 Acute metabolic encephalopathy secondary to above Resolved Elevated troponin: Likely secondary to hypoxia and demand ischemia with recent viral illness No acute EKG changes/chest pain, continue to monitor DM2: On Trulicity/glipizide/metformin at home, hold p.o. medications SSI/glycemic pharmacy consult, 4 times daily BGM Atrial fibrillation Was on metoprolol tartrate 50 mg twice daily at home, held for septic shock heart rate in the 150s, resume metoprolol to tartrate at 25 mg p.o. twice daily to prevent hypotension, monitor blood pressure HR elevated -> resume usual dose of 50 mg twice daily INR 4.2, held Coumadin INR daily, current 2.4 - resumed Polymyalgia rheumatica, on chronic prednisone Resume usual prednisone once IV hydrocortisone taper has completed Patient is a DNR/DNI DVT prophylaxis: Warfarin Admission and Anticipated Discharge Date Admission Date: November 06, 2024 Subjective Follow-up for septic shock secondary to pneumonia and influenza A infection, possible adrenal insufficiency, etc. Pt seen ambulating to bathroom and back - his HR elevated to 140s Pt then laying down, reports some nausea, HR to 100 Denies chest pain, shortness of breath, feeling dizzy or lightheaded Still feels weak, occasional cough Sons visiting Discussed with RN and thelma Review of Systems Review of Systems: All systems reviewed & are unremarkable except as noted in Subjective Physical Exam Physical Exam: General- oriented x 3, not in distress, speaks in sentences with no effort or accessory muscle use Eyes- anicteric Neck- no JVD Lungs- + mild rhonchi, crackles Heart- normal rate, regular rhythm; no murmurs Abdomen- normal bowel sounds, nondistended, soft, nontender Extremities- no pretibial edema, no calf tenderness Neuro- alert, oriented x 3; no gross focal neurologic deficits Skin- warm & dry Results & Data Results & Data Vital Signs (Past 12 Hours) Vital Signs Temp Pulse Pulse Resp BP Pulse Ox O2 Del Method 11/10/24 07:44 36.6 C 121 H 20 169/98 H 90 Nasal Cannula 11/10/24 03:20 36.6 C 105 H 19 159/87 H 92 Room Air 11/10/24 01:34 102 H 18 96 Room Air 11/10/24 00:18 98 H 11/09/24 22:53 36.9 C 109 H 20 142/72 H 92 Room Air 11/09/24 21:08 101 H 18 95 Room Air 11/09/24 20:52 Room Air O2 Flow Rate 11/10/24 07:44 2 11/10/24 03:20 11/10/24 01:34 11/10/24 00:18 11/09/24 22:53 11/09/24 21:08 11/09/24 20:52 Laboratory Results 11/10/24 11/10/24 11/10/24 Range/Units 09:28 08:10 07:42 WBC 6.07 (4.8-10.8) K/ul RBC 4.23 L (4.70-6.10) M/uL Hgb 12.1 L (14.0-18.0) g/dl Hct 37.1 L (42.0-52.0) % MCV 87.7 (80.0-100.0) fL MCH 28.6 (25.0-34.0) pg MCHC 32.6 (32.0-36.0) g/dL RDW Std Deviation 46.6 H (36.4-46.3) fL RDW Coeff of Roverto 14.5 (11.5-14.5) % Plt Count 133 (130-400) K/uL MPV 11.7 (9.4-12.4) fL Immature Gran % (Auto) 0.8 % Neut % (Auto) 78.5 % Lymph % (Auto) 9.9 % [place] % (Auto) 9.9 % Eos % (Auto) 0.7 % Baso % (Auto) 0.2 % Neut # (Auto) 4.77 (1.40-6.50) K/uL Lymph # (Auto) 0.60 L (1.20-3.40) K/uL [place] # (Auto) 0.60 H (0.11-0.59) K/uL Eos # (Auto) 0.04 (0.00-0.50) K/uL Baso # (Auto) 0.01 (0.00-0.20) K/uL Immature Gran # (Auto) 0.05 (0.01-0.20) K/uL PT 24.0 H Cancelled INR 2.4 H Cancelled Sodium 141 (136-145) mmol/L Potassium 3.7 (3.5-5.1) mmol/L Chloride 107 (98-107) mmol/L Carbon Dioxide 27 (21-32) mmol/L Anion Gap 7 (3-11) BUN 31 H (6-23) mg/dl Creatinine 1.72 H (0.6-1.4) mg/dl Est Cr Clr Drug Dosing 37.6 ml/min eGFR 39.69 BUN/Creatinine Ratio 18.0 (10-20) Glucose 136 H (70-99(Fasting)) mg/dl POC Glucose 134 H (70-99) mg/dl Calcium 9.2 (8.6-10.3) mg/dl Phosphorus 1.9 L (2.5-4.9) mg/dl Magnesium 1.8 (1.7-2.4) mg/dl 11/09/24 11/09/24 11/09/24 Range/Units 19:51 17:03 11:45 WBC (4.8-10.8) K/ul RBC (4.70-6.10) M/uL Hgb (14.0-18.0) g/dl Hct (42.0-52.0) % MCV (80.0-100.0) fL MCH (25.0-34.0) pg MCHC (32.0-36.0) g/dL RDW Std Deviation (36.4-46.3) fL RDW Coeff of Roverto (11.5-14.5) % Plt Count (130-400) K/uL MPV (9.4-12.4) fL Immature Gran % (Auto) % Neut % (Auto) % Lymph % (Auto) % [place] % (Auto) % Eos % (Auto) % Baso % (Auto) % Neut # (Auto) (1.40-6.50) K/uL Lymph # (Auto) (1.20-3.40) K/uL [place] # (Auto) (0.11-0.59) K/uL Eos # (Auto) (0.00-0.50) K/uL Baso # (Auto) (0.00-0.20) K/uL Immature Gran # (Auto) (0.01-0.20) K/uL PT INR Sodium (136-145) mmol/L Potassium (3.5-5.1) mmol/L Chloride (98-107) mmol/L Carbon Dioxide (21-32) mmol/L Anion Gap (3-11) BUN (6-23) mg/dl Creatinine (0.6-1.4) mg/dl Est Cr Clr Drug Dosing ml/min eGFR BUN/Creatinine Ratio (10-20) Glucose (70-99(Fasting)) mg/dl POC Glucose 138 H 90 186 H (70-99) mg/dl Calcium (8.6-10.3) mg/dl Phosphorus (2.5-4.9) mg/dl Magnesium (1.7-2.4) mg/dl Medications Administered Current Inpatient Medications Acetaminophen (Acetaminophen 500 Mg Tab) 500 mg PO Q6H PRN PRN Reason: fever/pain Stop: 12/09/24 05:59 Last Admin: 11/09/24 06:08 Dose: 500 mg Albuterol (Albut/Ipratrop 3mg/0.5mg Neb 3 Ml Vial) 3 ml NEB Q6R PRN; Protocol PRN Reason: Shortness Of Breath Or Wheezing Stop: 12/06/24 14:29 Budesonide (Budesonide 0.5 Mg/2 Ml Vial (Pulmicort)) 0.5 mg NEB BIDR [facility] Stop: 12/08/24 18:59 Last Admin: 11/09/24 21:07 Dose: 0.5 mg Dextrose (Dextrose 50% 50 Ml Syringe) 25 - 50 ml IV UD PRN; Protocol PRN Reason: Hypoglycemia Protocol Stop: 12/06/24 12:18 Doxycycline Hyclate (Doxycycline Hyclate 100 Mg Cap) 100 mg PO BID [facility] Stop: 11/12/24 08:59 Last Admin: 11/09/24 20:31 Dose: 100 mg Duloxetine HCl (Duloxetine Hcl 20 Mg Cap) 20 mg PO QPM [facility] Stop: 12/06/24 20:59 Last Admin: 11/09/24 20:32 Dose: 20 mg Formoterol Fumarate (Formoterol 20 Mcg/2 Ml Vial) 20 mcg INH BIDR [facility] Stop: 12/08/24 18:59 Last Admin: 11/09/24 21:07 Dose: 20 mcg Glucagon (Glucagon For Inj 1 Mg Vial) 1 mg SQ UD PRN; Protocol PRN Reason: Hypoglycemia Protocol Stop: 12/06/24 12:18 Glucose (Glucose 40% Gel 15 Gm Tube) 15 - 30 gm PO UD PRN; Protocol PRN Reason: Hypoglycemia Protocol Stop: 12/06/24 12:18 Glucose (Glucose 10 Tab/Tube) 4 - 8 tab PO UD PRN; Protocol PRN Reason: Hypoglycemia Protocol Stop: 12/06/24 12:18 Guaifenesin (Guaifenesin 600 Mg Tabcr) 600 mg PO Q12 AIMEE Stop: 12/07/24 08:59 Last Admin: 11/09/24 20:32 Dose: 600 mg Heparin Sodium (Beef Lung) (Heparin 10 Unit/Ml 5 Ml Flush) 5 ml FLUSH PRN PRN PRN Reason: Flush Stop: 12/07/24 03:23 Hydrocortisone Sodium (Succinate 50 mg/ Syringe) 1 mls @ 4 mls/min IV BID [facility] Stop: 11/10/24 21:01 Last Admin: 11/09/24 20:32 Dose: 4 mls/min Piperacillin Sod/Tazobactam Sod (Zosyn) 4.5 gm in 100 mls @ 25 mls/hr IV Q8H [facility]; Protocol Stop: 11/13/24 20:59 Last Admin: 11/10/24 05:23 Dose: 25 mls/hr Insulin Aspart (Insulin Aspart Per Unit Charge) 0 units SC ACHS [facility] Stop: 12/06/24 14:44 Last Admin: 11/09/24 19:55 Dose: Not Given Insulin Glargine (Lantus Per Unit Charge) 0 units SC QAM [facility]; Protocol Stop: 12/10/24 08:59 Ipratropium [place] (Ipratropium [place] Neb Soln 0.02% 0.5mg/2.5ml Vial) 0.5 mg NEB Q6R [facility] Stop: 12/07/24 18:59 Last Admin: 11/10/24 01:32 Dose: 0.5 mg Lactobacillus Acidophilus (Advanced Probiotic 625 Mg Capsule) 1,250 mg PO DAILY [facility] Stop: 12/08/24 08:59 Last Admin: 11/09/24 08:17 Dose: 1,250 mg Levalbuterol HCl (Levalbuterol 1.25 Mg/3 Ml Neb) 1.25 mg NEB Q6R AIMEE Stop: 12/07/24 18:59 Last Admin: 11/10/24 01:32 Dose: 1.25 mg Metoprolol Tartrate (Metoprolol Tartrate 50 Mg Tab) 50 mg PO BID [facility] Stop: 12/10/24 08:59 Miscellaneous (Carbohydrates For Hypoglycemia ) 15 - 30 gm PO UD PRN PRN Reason: Hypoglycemia Protocol Stop: 12/06/24 12:18 Miscellaneous Information (Pharmacy Glycemic Mgmt Consult) 1 each N/A UD PRN PRN Reason: Consult Stop: 12/06/24 12:18 Ondansetron HCl (Ondansetron Inj 2 Mg/Ml 2 Ml Vial) 4 mg IV Q6H PRN PRN Reason: Nausea And Vomiting Stop: 12/06/24 16:43 Oseltamivir Phosphate (Oseltamivir Phosphate Susp 30 Mg/5 Ml Udp) 30 mg PO DAILY [facility]; Protocol Stop: 11/10/24 09:01 Last Admin: 11/09/24 08:17 Dose: 30 mg Pantoprazole Sodium (Pantoprazole 40 Mg Tab) 40 mg PO QAM [facility] Stop: 12/07/24 08:59 Last Admin: 11/09/24 08:17 Dose: 40 mg Prednisone (Prednisone 5 Mg Tab) 5 mg PO BID [facility] Stop: 12/06/24 20:59 Vitamin D (Cholecalciferol 25 Mcg (1000 Units) Tab) 50 mcg PO QAM [facility] Stop: 12/07/24 08:59 Last Admin: 11/09/24 08:17 Dose: 50 mcg
[2024-11-10] MEDS: ONDANSETRON INJ 2 MG/ML 2 ML VIAL IV PRN (08:20)
[2024-11-10] MEDS: METOPROLOL TARTRATE 50 MG TAB PO SCH (08:55)
[2024-11-10 08:57] LABS: Basophils # (auto) 0.01 K/uL (0.00-0.20); Basophils % (auto) 0.2 %; Eosinophils # (auto) 0.04 K/uL (0.00-0.50); Eosinophils % (auto) 0.7 %; Hematocrit (blood only) 37.1 % (42.0-52.0); Hemoglobin 12.1 g/dl (14.0-18.0); Immature Granulocytes # (auto) 0.05 K/uL (0.01-0.20); Immature Granulocytes % (auto) 0.8 %; Lymphocytes % (auto) 9.9 %; Mean Corpuscular Hemoglobin 28.6 pg (25.0-34.0); Mean Corpuscular Hgb Conc 32.6 g/dL (32.0-36.0); Mean Corpuscular Volume 87.7 fL (80.0-100.0); Mean Platelet Volume 11.7 fL (9.4-12.4); Monocytes % (auto) 9.9 %; Neutrophils # (auto) 4.77 K/uL (1.40-6.50); Neutrophils % (auto) 78.5 %; Platelet Count 133 K/uL (130-400); RDW Coefficient of Variation 14.5 % (11.5-14.5); RDW Standard Deviation 46.6 fL (36.4-46.3); Red Blood Count 4.23 M/uL (4.70-6.10); White Blood Count 6.07 K/ul (4.8-10.8)
[2024-11-10 09:07] LABS: Calcium 9.2 mg/dl (8.6-10.3); Creatinine Clr Calc Pharmacy 37.6 ml/min; Magnesium 1.8 mg/dl (1.7-2.4); Phosphorus 1.9 mg/dl (2.5-4.9); Potassium 3.7 mmol/L (3.5-5.1)
[2024-11-10] MEDS ORDERED: Nursing to Pharmacy Communication SCH (09:15)
[2024-11-10 10:26] LABS: INR 2.4 (0.9-1.1)
[2024-11-10] MEDS ORDERED: POTASSIUM PHOS 3 MMOL/1 ML INFUSION IV STA (11:10)
[2024-11-10] MEDS: POT PHOSPHATE MONOBASIC W/ SOD TAB PO SCH (11:52)
--- NOTE | 2024-11-10 13:34 | Pulmonology Progress Note ---
Date of Service November 10, 2024 Assessment & Plan (1) Acute respiratory failure with hypoxia: (2) Aspiration pneumonitis: (3) Atrial fibrillation with rapid ventricular response: Plan 78-year-old male admitted to the hospital for hypoxic respiratory failure and hypotension Past medical history: PMR on 10 mg prednisone a daily basis, A-fib on warfarin, hypertension, dyslipidemia, COPD CT chest 11/06/2024 personally reviewed: Centrilobular and paraseptal emphysema appreciated bilaterally Motion degraded study Patchy opacities appreciated in the right middle and right lower as well as left lower lobe Cardiomegaly No significant mediastinal lymphadenopathy --Acute hypoxic respiratory failure --> resolved Likely secondary to multilobar pneumonia from influenza A, cannot rule out bacterial superinfection Tamiflu as able Suction PRN. Encourage deep breathing and expectoration of secretions. --COPD with emphysema Not on any inhalers at home Consider discharging the patient on either Anoro or Stiolto -- Multilobar pneumonia Continue Zosyn given aspiration event Stop Vancomycin as MRSA negative BC x2 negative to date Procalcitonin 0.84, UA negative influenza A positive --History of A-fib On warfarin and beta-sara at home Plan: In/out: +379, urine output 401 Continue with nebulized budesonide and Perforomist Complete the course of doxycycline Continue with incentive spirometry and flutter valve Case was discussed with RN at bedside No further recommendation from pulmonary perspective, will sign off Please call directly with any questions Please note the above document was generated using voice recognition software. It may contain grammatical, syntax or spelling errors.Any formal questions or concerns about the content, text or information contained within the body of this dictation should be directly addressed to the provider for clarification. Admission and Anticipated Discharge Date Admission Date: November 06, 2024 Subjective Patient seen and examined at bedside. No acute distress, no dressings overnight Overall he says he is feeling better. Appetite is fair. No nausea vomiting Denies any unusual headache or blurry vision Coughing up clear phlegm. No hemoptysis Review of Systems 2 Review of Systems: All systems reviewed & are unremarkable except as noted in Subjective Physical Exam 2 Physical Exam: Constitutional: No acute distress HEENT: EOMI, PERRLA, hard to hear Respiratory system: Decreased air entry bilaterally, no wheeze, no rhonchi, positive crackles bilateral lower lobes CVS: S1-S2 positive, no murmurs or gallops Abdomen: Soft, nontender, nondistended, positive bowel sounds x4, obese Extremities: +2 pulses bilaterally radialis/ dorsalis pedis, no cyanosis, no edema Neuro: Awake alert oriented x3 Psych: Normal mood and affect G/U: No Carreno Skin: no rashes, warm and dry Lymphatic: no cervical or axillary lymphadenopathy Results & Data Results & Data Vital Signs (Past 12 Hours) Vital Signs Temp Pulse Pulse Resp BP Pulse Ox O2 Del Method 11/10/24 12:46 88 20 89 L Room Air 11/10/24 08:11 101 H 18 94 Room Air 11/10/24 08:00 89 11/10/24 08:00 Room Air 11/10/24 07:44 36.6 C 121 H 20 169/98 H 90 Nasal Cannula 11/10/24 03:20 36.6 C 105 H 19 159/87 H 92 Room Air 11/10/24 01:34 102 H 18 96 Room Air O2 Flow Rate 11/10/24 12:46 11/10/24 08:11 11/10/24 08:00 11/10/24 08:00 11/10/24 07:44 2 11/10/24 03:20 11/10/24 01:34 Laboratory Results 11/10/24 08:10 11/10/24 08:10 PG Care Time/CCT Total # of Minutes Spent Total Time Spent with Patient: Total time spent is greater than 50% in coordination of care (as documented) at patient's floor/unit and/or counseling patient: Coding Level of Care Code 12170 SUB INP/OBS CARE 2/35MIN Diagnoses Acute respiratory failure with hypoxia J96.01 Aspiration pneumonitis J69.0 Atrial fibrillation with rapid ventricular response I48.91
[2024-11-10] MEDS: WARFARIN SOD 5 MG TAB PO SCH (16:12)
[2024-11-11 07:44] LABS: Basophils # (auto) 0.01 K/uL (0.00-0.20); Basophils % (auto) 0.2 %; Eosinophils # (auto) 0.14 K/uL (0.00-0.50); Eosinophils % (auto) 2.4 %; Hematocrit (blood only) 35.8 % (42.0-52.0); Hemoglobin 11.7 g/dl (14.0-18.0); Immature Granulocytes # (auto) 0.05 K/uL (0.01-0.20); Immature Granulocytes % (auto) 0.9 %; Mean Corpuscular Hemoglobin 28.4 pg (25.0-34.0); Mean Corpuscular Hgb Conc 32.7 g/dL (32.0-36.0); Mean Corpuscular Volume 86.9 fL (80.0-100.0); Mean Platelet Volume 11.6 fL (9.4-12.4); Monocytes # (auto) 0.86 K/uL (0.11-0.59); Monocytes % (auto) 14.7 %; Neutrophils # (auto) 3.81 K/uL (1.40-6.50); Neutrophils % (auto) 64.8 %; Platelet Count 119 K/uL (130-400); RDW Coefficient of Variation 14.4 % (11.5-14.5); RDW Standard Deviation 46.1 fL (36.4-46.3); Red Blood Count 4.12 M/uL (4.70-6.10); White Blood Count 5.87 K/ul (4.8-10.8)
--- NOTE | 2024-11-11 07:50 | Pulmonology Progress Note ---
Date of Service November 11, 2024 Assessment & Plan (1) Acute respiratory failure with hypoxia: (2) Aspiration pneumonitis: (3) Atrial fibrillation with rapid ventricular response: Plan 78-year-old male admitted to the hospital for hypoxic respiratory failure and hypotension Past medical history: PMR on 10 mg prednisone a daily basis, A-fib on warfarin, hypertension, dyslipidemia, COPD CT chest 11/06/2024 personally reviewed: Centrilobular and paraseptal emphysema appreciated bilaterally Motion degraded study Patchy opacities appreciated in the right middle and right lower as well as left lower lobe Cardiomegaly No significant mediastinal lymphadenopathy --Acute hypoxic respiratory failure --> resolved Likely secondary to multilobar pneumonia from influenza A, cannot rule out bacterial superinfection Tamiflu as able Suction PRN. Encourage deep breathing and expectoration of secretions. --COPD with emphysema Not on any inhalers at home Consider discharging the patient on either Anoro or Stiolto -- Multilobar pneumonia Continue Zosyn given aspiration event Stop Vancomycin as MRSA negative BC x2 negative to date Procalcitonin 0.84, UA negative influenza A positive --History of A-fib On warfarin and beta-sara at home Plan: In/out: +2.2 L since coming to the hospital Continue with nebulized budesonide and Perforomist Complete the course of doxycycline, tomorrow with the last day Continue with incentive spirometry and flutter valve Case was discussed with RN at bedside and primary team No further recommendation from pulmonary perspective, will sign off Please call directly with any questions Please note the above document was generated using voice recognition software. It may contain grammatical, syntax or spelling errors.Any formal questions or concerns about the content, text or information contained within the body of this dictation should be directly addressed to the provider for clarification. Admission and Anticipated Discharge Date Admission Date: November 06, 2024 Subjective Patient seen and examined at bedside. No acute distress, normal symptoms overnight He said he is not feeling well today because of upset stomach and diarrhea. Was saturating 89% on room air Denied any nausea or vomiting No unusual headache or blurry vision Review of Systems 2 Review of Systems: All systems reviewed & are unremarkable except as noted in Subjective Physical Exam 2 Physical Exam: Constitutional: No acute distress HEENT: EOMI, PERRLA, hard to hear Respiratory system: Decreased air entry bilaterally, no wheeze, no rhonchi, positive crackles bilateral lower lobes CVS: S1-S2 positive, no murmurs or gallops Abdomen: Soft, nontender, nondistended, positive bowel sounds x4, obese Extremities: +2 pulses bilaterally radialis/ dorsalis pedis, no cyanosis, no edema Neuro: Awake alert oriented x3 Psych: Normal mood and affect G/U: No Carreno Skin: no rashes, warm and dry Lymphatic: no cervical or axillary lymphadenopathy Results & Data Results & Data Vital Signs (Past 12 Hours) Vital Signs Temp Pulse Pulse Resp BP Pulse Ox O2 Del Method 11/11/24 05:26 36.7 C 105 H 18 165/81 H 92 Room Air 11/11/24 01:51 90 18 91 Room Air 11/10/24 23:03 93 H 11/10/24 20:00 87 17 91 Room Air Laboratory Results 11/11/24 07:10 PG Care Time/CCT Total # of Minutes Spent Total Time Spent with Patient: Total time spent is greater than 50% in coordination of care (as documented) at patient's floor/unit and/or counseling patient: Coding Level of Care Code 82017 SUB INP/OBS CARE 2/35MIN Diagnoses Acute respiratory failure with hypoxia J96.01 Aspiration pneumonitis J69.0 Atrial fibrillation with rapid ventricular response I48.91
[2024-11-11 07:57] LABS: BUN Creatinine Ratio 15.7 (10-20); Calcium 8.7 mg/dl (8.6-10.3); Creatinine Clr Calc Pharmacy 40.7 ml/min; Magnesium 1.5 mg/dl (1.7-2.4); Phosphorus 2.5 mg/dl (2.5-4.9); Potassium 2.9 mmol/L (3.5-5.1)
[2024-11-11 08:01] LABS: INR 3.7 (0.9-1.1); Prothrombin Time 35.6 Seconds (9.0-12.0)
[2024-11-11] MEDS: LANTUS PER UNIT CHARGE SC SCH (08:51)
[2024-11-11] MEDS: HYDROCORTISONE SOD 50 MG in SYRINGE 0 ML IV SCH (08:52)
--- NOTE | 2024-11-11 10:10 | Hospitalist Progress Note ---
Date of Service November 11, 2024 Assessment & Plan (1) Vomiting: (2) AMS (altered mental status): (3) Pulmonary edema: (4) Chronic steroid use: (5) Polymyalgia rheumatica: (6) HTN, goal below 140/90: (7) Diabetes mellitus, type 2: (8) Hyperlipidemia: (9) Hypertension: (10) Permanent atrial fibrillation: Plan Per admitting service notes with addendum: The patient is an 78-year-old male with a past medical history of A-fib on Coumadin, depression, HLD, DM2, PMR who presents to the ED on 11/06/2024 with complaints of flulike symptoms, found to be positive for flu A, suspicion for aspiration pneumonia and acute hypoxic respiratory failure Assessment and plan: Acute hypoxic respiratory failure COPD exacerbation Influenza A suspected aspiration pneumonia Found to be 77% on room air by EMS, patient's reports vomiting suspicious for aspiration Oxygen improved on 13 L, continue IV Vanco/Zosyn for aspiration pneumonia Found to be positive for influenza A, continue Tamiflu, originally hypotensive on arrival Blood pressure improved with sepsis fluids, lactic acid slowly improving, 5.7 on arrival Continue IV fluids and telemetry monitoring 11/07 currently on 6 L NC continue Zosyn, Tamiflu Hydrocortisone IV Mucinex Nebs q6h obtain sputum culture 11/08 Respiratory status gradually improving On 2 L of O2 via nasal cannula Sputum culture: Pending Continue Zosyn plus Tamiflu started on Perforomist and Pulmicort twice daily Continue Xopenex/Atrovent every 6 hours On IV hydrocortisone 50 mg 3 times daily, taper -> changed to BID -> to daily Mucinex, incentive spirometry, flutter valve Pulmonology following closely 11/10 Pt is on RA, saturating 94% Lung exam with some rhonchi crackles, + cough Feeling very tired HR elevated + nausea/vomiting Speech therapy consulted: Easy to chew diet 11/11 Having some stomach ache, diarrhea, Dr. Ramsey recommends to switch zosyn to rocephin will add flagyl for anaerobic coverage Septic shock Secondary to above Adrenal insufficiency Off Levophed and vasopressors On IV hydrocortisone taper Monitor blood pressure closely Resume usual prednisone dose once IV hydrocortisone taper has completed Acute kidney injury on CKD IV admission crea 1.3--> 2.7 ->1.8 Likely from sepsis, hypotension No signs of obstruction on CT abdomen pelvis Fluid balance +3 L Carreno catheter in place Consider consulting nephrology service if w/o improvement Cr now down to 1.6 Acute metabolic encephalopathy secondary to above Resolved Elevated troponin: Likely secondary to hypoxia and demand ischemia with recent viral illness No acute EKG changes/chest pain, continue to monitor DM2: On Trulicity/glipizide/metformin at home, hold p.o. medications SSI/glycemic pharmacy consult, 4 times daily BGM Atrial fibrillation Was on metoprolol tartrate 50 mg twice daily at home, held for septic shock heart rate in the 150s, resume metoprolol to tartrate at 25 mg p.o. twice daily to prevent hypotension, monitor blood pressure HR elevated -> resumed usual dose of 50 mg twice daily Coumadin on hold now INR daily Polymyalgia rheumatica, on chronic prednisone Resume usual prednisone once IV hydrocortisone taper has completed Patient is a DNR/DNI DVT prophylaxis: Warfarin Admission and Anticipated Discharge Date Admission Date: November 06, 2024 Subjective Follow-up for septic shock secondary to pneumonia and influenza A infection, possible adrenal insufficiency, etc. Pt sitting in chair, getting breathing treatment Denies chest pain, shortness of breath, feeling dizzy or lightheaded Still feels weak, occasional cough Sons were visiting yesterday - updated Discussed with RN , and w/ Dr. Ramsey - concerned about stomach ache, diarrhea - recommends to switch abx zosyn to rocephin Review of Systems Review of Systems: All systems reviewed & are unremarkable except as noted in Subjective Physical Exam Physical Exam: General- oriented x 3, not in distress, speaks in sentences with no effort or a ccessory muscle use Eyes- anicteric Neck- no JVD Lungs- + mild rhonchi, crackles - improved Heart- normal rate, regular rhythm; no murmurs Abdomen- normal bowel sounds, nondistended, soft, nontender Extremities- no pretibial edema, no calf tenderness Neuro- alert, oriented x 3; no gross focal neurologic deficits Skin- warm & dry Results & Data Results & Data Vital Signs (Past 12 Hours) Vital Signs Temp Pulse Pulse Resp BP Pulse Ox O2 Del Method 11/11/24 08:14 36.3 C L 116 H 19 139/73 90 Room Air 11/11/24 05:26 36.7 C 105 H 18 165/81 H 92 Room Air 11/11/24 01:51 90 18 91 Room Air 11/10/24 23:03 93 H Laboratory Results 11/11/24 11/11/24 11/11/24 Range/Units 16:40 11:43 08:12 WBC (4.8-10.8) K/ul RBC (4.70-6.10) M/uL Hgb (14.0-18.0) g/dl Hct (42.0-52.0) % MCV (80.0-100.0) fL MCH (25.0-34.0) pg MCHC (32.0-36.0) g/dL RDW Std Deviation (36.4-46.3) fL RDW Coeff of Roverto (11.5-14.5) % Plt Count (130-400) K/uL MPV (9.4-12.4) fL Immature Gran % (Auto) % Neut % (Auto) % Lymph % (Auto) % [place] % (Auto) % Eos % (Auto) % Baso % (Auto) % Neut # (Auto) (1.40-6.50) K/uL Lymph # (Auto) (1.20-3.40) K/uL [place] # (Auto) (0.11-0.59) K/uL Eos # (Auto) (0.00-0.50) K/uL Baso # (Auto) (0.00-0.20) K/uL Immature Gran # (Auto) (0.01-0.20) K/uL PT (9.0-12.0) Seconds INR (0.9-1.1) Sodium (136-145) mmol/L Potassium (3.5-5.1) mmol/L Chloride (98-107) mmol/L Carbon Dioxide (21-32) mmol/L Anion Gap (3-11) BUN (6-23) mg/dl Creatinine (0.6-1.4) mg/dl Est Cr Clr Drug Dosing ml/min eGFR BUN/Creatinine Ratio (10-20) Glucose (70-99(Fasting)) mg/dl POC Glucose 210 H 164 H 143 H (70-99) mg/dl Calcium (8.6-10.3) mg/dl Phosphorus (2.5-4.9) mg/dl Magnesium (1.7-2.4) mg/dl 11/11/24 11/10/24 Range/Units 07:10 20:39 WBC 5.87 (4.8-10.8) K/ul RBC 4.12 L (4.70-6.10) M/uL Hgb 11.7 L (14.0-18.0) g/dl Hct 35.8 L (42.0-52.0) % MCV 86.9 (80.0-100.0) fL MCH 28.4 (25.0-34.0) pg MCHC 32.7 (32.0-36.0) g/dL RDW Std Deviation 46.1 (36.4-46.3) fL RDW Coeff of Roverto 14.4 (11.5-14.5) % Plt Count 119 L (130-400) K/uL MPV 11.6 (9.4-12.4) fL Immature Gran % (Auto) 0.9 % Neut % (Auto) 64.8 % Lymph % (Auto) 17.0 % [place] % (Auto) 14.7 % Eos % (Auto) 2.4 % Baso % (Auto) 0.2 % Neut # (Auto) 3.81 (1.40-6.50) K/uL Lymph # (Auto) 1.00 L (1.20-3.40) K/uL [place] # (Auto) 0.86 H (0.11-0.59) K/uL Eos # (Auto) 0.14 (0.00-0.50) K/uL Baso # (Auto) 0.01 (0.00-0.20) K/uL Immature Gran # (Auto) 0.05 (0.01-0.20) K/uL PT 35.6 H (9.0-12.0) Seconds INR 3.7 H (0.9-1.1) Sodium 142 (136-145) mmol/L Potassium 2.9 L D (3.5-5.1) mmol/L Chloride 107 (98-107) mmol/L Carbon Dioxide 25 (21-32) mmol/L Anion Gap 10 (3-11) BUN 25 H (6-23) mg/dl Creatinine 1.59 H (0.6-1.4) mg/dl Est Cr Clr Drug Dosing 40.7 ml/min eGFR 43.61 BUN/Creatinine Ratio 15.7 (10-20) Glucose 138 H (70-99(Fasting)) mg/dl POC Glucose 154 H (70-99) mg/dl Calcium 8.7 (8.6-10.3) mg/dl Phosphorus 2.5 (2.5-4.9) mg/dl Magnesium 1.5 L (1.7-2.4) mg/dl Medications Administered Current Inpatient Medications Acetaminophen (Acetaminophen 500 Mg Tab) 500 mg PO Q6H PRN PRN Reason: fever/pain Stop: 12/09/24 05:59 Last Admin: 11/10/24 16:13 Dose: 500 mg Albuterol (Albut/Ipratrop 3mg/0.5mg Neb 3 Ml Vial) 3 ml NEB Q6R PRN; Protocol PRN Reason: Shortness Of Breath Or Wheezing Stop: 12/06/24 14:29 Budesonide (Budesonide 0.5 Mg/2 Ml Vial (Pulmicort)) 0.5 mg NEB BIDR [facility] Stop: 12/08/24 18:59 Last Admin: 11/11/24 08:17 Dose: 0.5 mg Dextrose (Dextrose 50% 50 Ml Syringe) 25 - 50 ml IV UD PRN; Protocol PRN Reason: Hypoglycemia Protocol Stop: 12/06/24 12:18 Doxycycline Hyclate (Doxycycline Hyclate 100 Mg Cap) 100 mg PO BID [facility] Stop: 11/12/24 08:59 Last Admin: 11/11/24 08:52 Dose: 100 mg Duloxetine HCl (Duloxetine Hcl 20 Mg Cap) 20 mg PO QPM [facility] Stop: 12/06/24 20:59 Last Admin: 11/10/24 21:32 Dose: 20 mg Formoterol Fumarate (Formoterol 20 Mcg/2 Ml Vial) 20 mcg INH BIDR [facility] Stop: 12/08/24 18:59 Last Admin: 11/11/24 08:17 Dose: 20 mcg Glucagon (Glucagon For Inj 1 Mg Vial) 1 mg SQ UD PRN; Protocol PRN Reason: Hypoglycemia Protocol Stop: 12/06/24 12:18 Glucose (Glucose 40% Gel 15 Gm Tube) 15 - 30 gm PO UD PRN; Protocol PRN Reason: Hypoglycemia Protocol Stop: 12/06/24 12:18 Glucose (Glucose 10 Tab/Tube) 4 - 8 tab PO UD PRN; Protocol PRN Reason: Hypoglycemia Protocol Stop: 12/06/24 12:18 Guaifenesin (Guaifenesin 600 Mg Tabcr) 600 mg PO Q12 [facility] Stop: 12/07/24 08:59 Last Admin: 11/11/24 08:53 Dose: 600 mg Heparin Sodium (Beef Lung) (Heparin 10 Unit/Ml 5 Ml Flush) 5 ml FLUSH PRN PRN PRN Reason: Flush Stop: 12/07/24 03:23 Ceftriaxone Sodium (Rocephin) 2,000 mg in 50 mls @ 100 mls/hr IV Q24H [facility] Stop: 11/16/24 13:59 Last Infusion: 11/11/24 14:13 Dose: Infused Metronidazole (Flagyl) 500 mg in 100 mls @ 100 mls/hr IV Q8H [facility]; Protocol Stop: 11/16/24 13:59 Last Admin: 11/11/24 13:36 Dose: 100 mls/hr Insulin Aspart (Insulin Aspart Per Unit Charge) 0 units [facility] Stop: 11/11/24 23:59 Last Admin: 11/11/24 13:35 Dose: 4 units Insulin Aspart (Insulin Aspart Per Unit Charge) 0 units SC [facility] Stop: 12/12/24 07:29 Insulin Glargine (Lantus Per Unit Charge) 0 units SC [facility]; Protocol Stop: 12/10/24 08:59 Last Admin: 11/11/24 08:51 Dose: 10 units Ipratropium [place] (Ipratropium [place] Neb Soln 0.02% 0.5mg/2.5ml Vial) 0.5 mg NEB Q6R [facility] Stop: 12/07/24 18:59 Last Admin: 11/11/24 13:13 Dose: 0.5 mg Lactobacillus Acidophilus (Advanced Probiotic 625 Mg Capsule) 1,250 mg PO DAILY [facility] Stop: 12/08/24 08:59 Last Admin: 11/11/24 08:52 Dose: 1,250 mg Levalbuterol HCl (Levalbuterol 1.25 Mg/3 Ml Neb) 1.25 mg NEB Q6R [facility] Stop: 12/07/24 18:59 Last Admin: 11/11/24 13:14 Dose: 1.25 mg Metoprolol Tartrate (Metoprolol Tartrate 50 Mg Tab) 50 mg PO BID [facility] Stop: 12/10/24 08:59 Last Admin: 11/11/24 08:53 Dose: 50 mg Miscellaneous (Carbohydrates For Hypoglycemia ) 15 - 30 gm PO UD PRN PRN Reason: Hypoglycemia Protocol Stop: 12/06/24 12:18 Miscellaneous Information (Pharmacy Glycemic Mgmt Consult) 1 each N/A UD PRN PRN Reason: Consult Stop: 12/06/24 12:18 Ondansetron HCl (Ondansetron Inj 2 Mg/Ml 2 Ml Vial) 4 mg IV Q6H PRN PRN Reason: Nausea And Vomiting Stop: 12/06/24 16:43 Last Admin: 11/10/24 08:20 Dose: 4 mg Pantoprazole Sodium (Pantoprazole 40 Mg Tab) [facility] Stop: 12/07/24 08:59 Last Admin: 11/11/24 08:53 Dose: 40 mg Prednisone (Prednisone 5 Mg Tab) 5 mg PO BID [facility] Stop: 12/06/24 20:59 Vitamin D (Cholecalciferol 25 Mcg (1000 Units) Tab) 50 mcg PO QAM [facility] Stop: 12/07/24 08:59 Last Admin: 11/11/24 08:52 Dose: 50 mcg Warfarin Sodium (Warfarin Sod 2.5 Mg Tab) 2.5 mg PO [id number]@16 [facility] Stop: 12/11/24 15:59 Warfarin Sodium (Warfarin Sod 5 Mg Tab) 5 mg PO [id number]@1600 [facility] Stop: 12/10/24 15:59 Last Admin: 11/10/24 16:12 Dose: 5 mg
[2024-11-11] MEDS: MAGNESIUM SULFATE / D5W 1 GM/100 ML BAG IV ONE (10:38)
[2024-11-11] MEDS: POTASSIUM CHLORIDE CRTAB 20 MEQ TABCR PO STA (10:38)
[2024-11-11] MEDS: cefTRIAXone SODIUM 2,000 MG/50 ML BAG IV SCH (13:36)
[2024-11-11] MEDS: metroNIDAZOLE 500 MG/100 ML BAG IV SCH (13:36)
[2024-11-11] MEDS ORDERED: WARFARIN SOD 2.5 MG TAB PO SCH (16:00)
--- NOTE | 2024-11-11 16:19 | Pharmacy Report ---
Pharmacy Glycemic Short Note 2 - Date of Service November 11, 2024 - Glycemic Short BSG Results (Last 24 hours): 11/10/24 11/10/24 11/11/24 16:24 20:39 07:10 Glucose 138 H POC Glucose 188 H 154 H 11/11/24 11/11/24 08:12 11:43 Glucose POC Glucose 143 H 164 H OUTPATIENT ANTIDIABETIC REGIMEN: * Metformin 1 g PO BIDM * Glipizide 20 mg PO qAM, 10 mg PO qPM * Trulicity 4.5 mg SC weekly HbA1c: 8.1% (11/07/24) ASSESSMENT: 11/10: * Fasting BSG near goal. Increased compared to previous day, however patient received no basal insulin on 11/09. * Hydrocortisone IV was discontinued after AM dose today. No current active steroid orders. * Will decrease lantus scale and loosen CF/CR starting 11/12 AM. 11/09: * Mitchel received 47 units of SQ insulin yesterday (10 units basal + 37 units bolus) * Fasting BSG is trending down, 170 -> 118 mg/dL. Will decrease basal insulin 50% today and change to dose per scale starting 11/10 AM. * Post prandial BSGs improved following adjustment to Novolog CF and CR last evening. Will continue this for now. Hydrocortisone decreased from q8h to q12. May need to loosen parameters tomorrow based on post prandial trend. 11/08: * BSGs elevated the last 24h: [phone]/dL. Received 10 units of basal and 20 units of bolus insulin yesterday. * Tolerating diet, continues on hydrocortisone 50mg IV TID (taper) and IV antibiotics. * Lantus 10 units X 1 again today. Will reassess basal tomorrow given hydrocortisone taper. Novolog tightened for improved prandial coverage. 11/07: * Mr. Mcpherson received no insulin in the hospital last night. BSGs were 109-85-87 mg/dL. * Fasting BSG was 155 mg/dL this AM. Basal insulin initially held off on due to NPO status but patient is now tolerating a T2DM diet so will add a one time basal dose with lunch. * Steroids on board in the form of IV Hydrocortisone 50 mg TID. This will be tapered to home prednisone dose over the next 96 hours. In the meantime, will tighten both CF and CR given addition of diet. Continues on Zosyn. 11/06: * RR is an 78 year old male who presented to ED via EMS after being found barely responsive in bed this morning (concern for aspiration event) * Initiated on broad spectrum antibiotics for sepsis secondary to possible aspiration pneumonia (vancomycin and Zosyn). Also started on Tamiflu for influenza. * Hyperglycemic on presentation (BSG of 295 mg/dL), but improved to 109 mg/dL on admission with IV fluid boluses (~3000 mL) only * NPO at this time given aspiration risk - will hold off on basal insulin at this time * Continuing on outpatient prednisone 5 mg PO BID * Prior inpatient glycemic data influenced by IV steroids PLAN FOR INPATIENT GLYCEMIC CONTROL: * Hold outpatient oral diabetes medications * Basal insulin * Lantus 0-5 units SC qAM starting 11/12 * Bolus insulin * NovoLog per scale ACHS or Q6hrs while NPO * Goal Range: Low 110 mg/dL - High 140 mg/dL * Correction Factor: 25 mg/dL/unit (change to 30 on 2 am) * Nutritional / Prandial insulin per carb ratio of 1 unit per 7 grams CHO consumed (change to 10 on 2 am)
[2024-11-12 07:26] LABS: Hematocrit (blood only) 34.1 % (42.0-52.0); Mean Corpuscular Hemoglobin 28.1 pg (25.0-34.0); Mean Corpuscular Hgb Conc 32.3 g/dL (32.0-36.0); Mean Corpuscular Volume 87.2 fL (80.0-100.0); Mean Platelet Volume 11.6 fL (9.4-12.4); Platelet Count 124 K/uL (130-400); RDW Coefficient of Variation 14.4 % (11.5-14.5); RDW Standard Deviation 46.3 fL (36.4-46.3); Red Blood Count 3.91 M/uL (4.70-6.10); White Blood Count 6.38 K/ul (4.8-10.8)
[2024-11-12 07:44] LABS: BUN Creatinine Ratio 16.1 (10-20); Calcium 8.3 mg/dl (8.6-10.3); Creatinine Clr Calc Pharmacy 41.7 ml/min; Magnesium 1.7 mg/dl (1.7-2.4); Phosphorus 2.8 mg/dl (2.5-4.9); Potassium 3.2 mmol/L (3.5-5.1)
[2024-11-12 07:53] LABS: INR 3.3 (0.9-1.1); Prothrombin Time 31.8 Seconds (9.0-12.0)
[2024-11-12] MEDS: INSULIN ASPART PER UNIT CHARGE SC SCH (09:15)
[2024-11-12 10:24] LABS: Basophils # (auto) 0.01 K/uL (0.00-0.20); Basophils % (auto) 0.2 %; Echinocytes 1+; Eosinophils # (auto) 0.16 K/uL (0.00-0.50); Eosinophils % (auto) 2.5 %; Immature Granulocytes # (auto) 0.13 K/uL (0.01-0.20); Lymphocytes # (auto) 1.09 K/uL (1.20-3.40); Lymphocytes % (auto) 17.1 %; Monocytes # (auto) 0.75 K/uL (0.11-0.59); Monocytes % (auto) 11.8 %; Neutrophils # (auto) 4.24 K/uL (1.40-6.50); Neutrophils % (auto) 66.4 %
--- NOTE | 2024-11-12 10:29 | Pulmonology Progress Note ---
Date of Service November 12, 2024 Assessment & Plan (1) Acute respiratory failure with hypoxia: (2) Aspiration pneumonitis: (3) Atrial fibrillation with rapid ventricular response: Plan 78-year-old male admitted to the hospital for hypoxic respiratory failure and hypotension Past medical history: PMR on 10 mg prednisone a daily basis, A-fib on warfarin, hypertension, dyslipidemia, COPD CT chest 11/06/2024 personally reviewed: Centrilobular and paraseptal emphysema appreciated bilaterally Motion degraded study Patchy opacities appreciated in the right middle and right lower as well as left lower lobe Cardiomegaly No significant mediastinal lymphadenopathy --Acute hypoxic respiratory failure --> resolved Likely secondary to multilobar pneumonia from influenza A, cannot rule out bacterial superinfection Tamiflu as able Suction PRN. Encourage deep breathing and expectoration of secretions. --COPD with emphysema Not on any inhalers at home Consider discharging the patient on either Anoro or Stiolto -- Multilobar pneumonia Continue Zosyn given aspiration event Stop Vancomycin as MRSA negative BC x2 negative to date Procalcitonin 0.84, UA negative influenza A positive --History of A-fib On warfarin and beta-sara at home Plan: Continue with nebulized budesonide and Perforomist He is complaining of some chest congestion and difficulty bringing up the phlegm, 7% hypertonic saline will be added to the regimen Completed 5 days of doxycycline Continue with incentive spirometry and flutter valve Case was discussed with RN at bedside No further recommendation from pulmonary perspective, will sign off Please call directly with any questions Please note the above document was generated using voice recognition software. It may contain grammatical, syntax or spelling errors.Any formal questions or concerns about the content, text or information contained within the body of this dictation should be directly addressed to the provider for clarification. Admission and Anticipated Discharge Date Admission Date: November 06, 2024 Subjective Patient seen and examined at bedside. No acute distress, nor was he was on 9 He still complaining of diarrhea and mild nausea. Denied any headache, no nausea vomiting Appetite is fair Shortness of breath has improved compared to before. Still complaining of some phlegm and difficulty bringing it up. Review of Systems 2 Review of Systems: All systems reviewed & are unremarkable except as noted in Subjective Physical Exam 2 Physical Exam: Constitutional: No acute distress HEENT: EOMI, PERRLA, hard to hear Respiratory system: Decreased air entry bilaterally, positive expiratory wheeze bilaterally, mild rhonchi positive crackles bilateral lower lobes CVS: S1-S2 positive, no murmurs or gallops Abdomen: Soft, nontender, nondistended, positive bowel sounds x4, obese Extremities: +2 pulses bilaterally radialis/ dorsalis pedis, no cyanosis, no edema Neuro: Awake alert oriented x3 Psych: Normal mood and affect G/U: No Carreno Skin: no rashes, warm and dry Lymphatic: no cervical or axillary lymphadenopathy Results & Data Results & Data Vital Signs (Past 12 Hours) Vital Signs Temp Pulse Pulse Resp BP Pulse Ox O2 Del Method 11/12/24 10:16 92 H 11/12/24 08:20 Room Air 11/12/24 07:48 115 H 20 88 L Room Air 11/12/24 07:42 36.4 C L 98 H 19 138/77 90 Room Air 11/12/24 02:49 36.5 C 106 H 22 163/83 H 91 Nasal Cannula 11/12/24 01:20 82 16 94 Nasal Cannula 11/11/24 23:00 36.6 C 92 H 16 133/80 94 Nasal Cannula O2 Flow Rate 11/12/24 10:16 11/12/24 08:20 11/12/24 07:48 11/12/24 07:42 11/12/24 02:49 2 11/12/24 01:20 11/11/24 23:00 2 Laboratory Results 11/12/24 06:52 11/12/24 06:52 PG Care Time/CCT Total # of Minutes Spent Total Time Spent with Patient: Total time spent is greater than 50% in coordination of care (as documented) at patient's floor/unit and/or counseling patient: Coding Level of Care Code 67420 SUB INP/OBS CARE 2/35MIN Diagnoses Acute respiratory failure with hypoxia J96.01 Aspiration pneumonitis J69.0 Atrial fibrillation with rapid ventricular response I48.91
[2024-11-12] MEDS: ALBUT/IPRATROP 3MG/0.5MG NEB 3 ML VIAL NEB PRN (13:51)
--- NOTE | 2024-11-12 14:05 | Hospitalist Progress Note ---
Date of Service November 12, 2024 Assessment & Plan (1) Vomiting: (2) AMS (altered mental status): (3) Pulmonary edema: (4) Chronic steroid use: (5) Polymyalgia rheumatica: (6) HTN, goal below 140/90: (7) Diabetes mellitus, type 2: (8) Hyperlipidemia: (9) Hypertension: (10) Permanent atrial fibrillation: Plan Per admitting service notes with addendum: The patient is an 78-year-old male with a past medical history of A-fib on Coumadin, depression, HLD, DM2, PMR who presents to the ED on 11/06/2024 with complaints of flulike symptoms, found to be positive for flu A, suspicion for aspiration pneumonia and acute hypoxic respiratory failure Assessment and plan: Acute hypoxic respiratory failure COPD exacerbation Influenza A suspected aspiration pneumonia Found to be 77% on room air by EMS, patient's reports vomiting suspicious for aspiration Oxygen improved on 13 L, continue IV Vanco/Zosyn for aspiration pneumonia Found to be positive for influenza A, continue Tamiflu, originally hypotensive on arrival Blood pressure improved with sepsis fluids, lactic acid slowly improving, 5.7 on arrival Continue IV fluids and telemetry monitoring 11/07 currently on 6 L NC continue Zosyn, Tamiflu Hydrocortisone IV Mucinex Nebs q6h obtain sputum culture 11/08 Respiratory status gradually improving On 2 L of O2 via nasal cannula Sputum culture: Pending Continue Zosyn plus Tamiflu started on Perforomist and Pulmicort twice daily Continue Xopenex/Atrovent every 6 hours On IV hydrocortisone 50 mg 3 times daily, taper -> changed to BID -> to daily Mucinex, incentive spirometry, flutter valve Pulmonology following closely 11/10 Pt is on RA, saturating 94% Lung exam with some rhonchi crackles, + cough Feeling very tired HR elevated + nausea/vomiting Speech therapy consulted: Easy to chew diet 11/11 Having some stomach ache, diarrhea, Dr. Ramsey recommends to switch zosyn to rocephin will add flagyl for anaerobic coverage 11/12 Able to have some breakfast Feeling weak, having some JACOBS Otherwise no new complaints Continues to be on RA, no chest pain Septic shock Secondary to above Adrenal insufficiency Off Levophed and vasopressors On IV hydrocortisone taper Monitor blood pressure closely Resume usual prednisone dose once IV hydrocortisone taper has completed Acute kidney injury on CKD IV admission crea 1.3--> 2.7 ->1.8 Likely from sepsis, hypotension No signs of obstruction on CT abdomen pelvis Fluid balance +3 L Carreno catheter in place Consider consulting nephrology service if w/o improvement Cr now down to 1.6 Acute metabolic encephalopathy secondary to above Resolved Elevated troponin: Likely secondary to hypoxia and demand ischemia with recent viral illness No acute EKG changes/chest pain, continue to monitor DM2: On Trulicity/glipizide/metformin at home, hold p.o. medications SSI/glycemic pharmacy consult, 4 times daily BGM Atrial fibrillation Was on metoprolol tartrate 50 mg twice daily at home, held for septic shock heart rate in the 150s, resume metoprolol to tartrate at 25 mg p.o. twice daily to prevent hypotension, monitor blood pressure HR elevated -> resumed usual dose of 50 mg twice daily Coumadin on hold now INR daily Polymyalgia rheumatica, on chronic prednisone Resumed usual prednisone as IV hydrocortisone taper has completed Patient is a DNR/DNI DVT prophylaxis: Warfarin Admission and Anticipated Discharge Date Admission Date: November 06, 2024 Subjective Follow-up for septic shock secondary to pneumonia and influenza A infection, possible adrenal insufficiency, etc. Pt sitting in chair, in NAD, communicates well Denies chest pain, shortness of breath, feeling dizzy or lightheaded Still feels weak, occasional cough Family visiting today - updated at the bedside Discussed w/ Dr. Ramsey yesterday - concerned about stomach ache, diarrhea - recommended to switch abx zosyn to rocephin Review of Systems Review of Systems: All systems reviewed & are unremarkable except as noted in Subjective Physical Exam Physical Exam: General- oriented x 3, not in distress, speaks in sentences with no effort or accessory muscle use Eyes- anicteric Neck- no JVD Lungs- + mild rhonchi, crackles - improved Heart- normal rate, regular rhythm; no murmurs Abdomen- normal bowel sounds, nondistended, soft, nontender Extremities- no pretibial edema, no calf tenderness Neuro- alert, oriented x 3; no gross focal neurologic deficits Skin- warm & dry Results & Data Results & Data Vital Signs (Past 12 Hours) Vital Signs Temp Pulse Pulse Resp BP BP Pulse Ox 11/12/24 13:51 91 H 20 91 11/12/24 10:57 36.7 C 93 H 19 113/64 93 11/12/24 10:16 92 H 11/12/24 08:20 11/12/24 07:48 115 H 20 88 L 11/12/24 07:42 36.4 C L 98 H 19 138/77 90 11/12/24 02:49 36.5 C 106 H 22 163/83 H 91 O2 Del Method O2 Flow Rate 11/12/24 13:51 Room Air 11/12/24 10:57 Room Air 11/12/24 10:16 11/12/24 08:20 Room Air 11/12/24 07:48 Room Air 11/12/24 07:42 Room Air 11/12/24 02:49 Nasal Cannula 2 Laboratory Results 11/12/24 11/12/24 11/12/24 Range/Units 11:50 07:41 06:52 WBC 6.38 (4.8-10.8) K/ul RBC 3.91 L (4.70-6.10) M/uL Hgb 11.0 L (14.0-18.0) g/dl Hct 34.1 L (42.0-52.0) % MCV 87.2 (80.0-100.0) fL MCH 28.1 (25.0-34.0) pg MCHC 32.3 (32.0-36.0) g/dL RDW Std Deviation 46.3 (36.4-46.3) fL RDW Coeff of Roverto 14.4 (11.5-14.5) % Plt Count 124 L (130-400) K/uL MPV 11.6 (9.4-12.4) fL Immature Gran % (Auto) 2.0 % Neut % (Auto) 66.4 % Lymph % (Auto) 17.1 % [place] % (Auto) 11.8 % Eos % (Auto) 2.5 % Baso % (Auto) 0.2 % Neut # (Auto) 4.24 (1.40-6.50) K/uL Lymph # (Auto) 1.09 L (1.20-3.40) K/uL [place] # (Auto) 0.75 H (0.11-0.59) K/uL Eos # (Auto) 0.16 (0.00-0.50) K/uL Baso # (Auto) 0.01 (0.00-0.20) K/uL Immature Gran # (Auto) 0.13 (0.01-0.20) K/uL Echinocytes 1+ PT 31.8 H (9.0-12.0) Seconds INR 3.3 H (0.9-1.1) Sodium 141 (136-145) mmol/L Potassium 3.2 L (3.5-5.1) mmol/L Chloride 106 (98-107) mmol/L Carbon Dioxide 28 (21-32) mmol/L Anion Gap 7 (3-11) BUN 25 H (6-23) mg/dl Creatinine 1.55 H (0.6-1.4) mg/dl Est Cr Clr Drug Dosing 41.7 ml/min eGFR 44.97 BUN/Creatinine Ratio 16.1 (10-20) Glucose 96 (70-99(Fasting)) mg/dl POC Glucose 210 H 89 (70-99) mg/dl Calcium 8.3 L (8.6-10.3) mg/dl Phosphorus 2.8 (2.5-4.9) mg/dl Magnesium 1.7 (1.7-2.4) mg/dl 11/11/24 11/11/24 Range/Units 21:02 16:40 WBC (4.8-10.8) K/ul RBC (4.70-6.10) M/uL Hgb (14.0-18.0) g/dl Hct (42.0-52.0) % MCV (80.0-100.0) fL MCH (25.0-34.0) pg MCHC (32.0-36.0) g/dL RDW Std Deviation (36.4-46.3) fL RDW Coeff of Roverto (11.5-14.5) % Plt Count (130-400) K/uL MPV (9.4-12.4) fL Immature Gran % (Auto) % Neut % (Auto) % Lymph % (Auto) % [place] % (Auto) % Eos % (Auto) % Baso % (Auto) % Neut # (Auto) (1.40-6.50) K/uL Lymph # (Auto) (1.20-3.40) K/uL [place] # (Auto) (0.11-0.59) K/uL Eos # (Auto) (0.00-0.50) K/uL Baso # (Auto) (0.00-0.20) K/uL Immature Gran # (Auto) (0.01-0.20) K/uL Echinocytes PT (9.0-12.0) Seconds INR (0.9-1.1) Sodium (136-145) mmol/L Potassium (3.5-5.1) mmol/L Chloride (98-107) mmol/L Carbon Dioxide (21-32) mmol/L Anion Gap (3-11) BUN (6-23) mg/dl Creatinine (0.6-1.4) mg/dl Est Cr Clr Drug Dosing ml/min eGFR BUN/Creatinine Ratio (10-20) Glucose (70-99(Fasting)) mg/dl POC Glucose 147 H 210 H (70-99) mg/dl Calcium (8.6-10.3) mg/dl Phosphorus (2.5-4.9) mg/dl Magnesium (1.7-2.4) mg/dl Medications Administered Current Inpatient Medications Acetaminophen (Acetaminophen 500 Mg Tab) 500 mg PO Q6H PRN PRN Reason: fever/pain Stop: 12/09/24 05:59 Last Admin: 11/12/24 13:49 Dose: 500 mg Albuterol (Albut/Ipratrop 3mg/0.5mg Neb 3 Ml Vial) 3 ml NEB Q6R PRN; Protocol PRN Reason: Shortness Of Breath Or Wheezing Stop: 12/06/24 14:29 Last Admin: 11/12/24 13:51 Dose: 3 ml Budesonide (Budesonide 0.5 Mg/2 Ml Vial (Pulmicort)) 0.5 mg NEB BIDR [facility] Stop: 12/08/24 18:59 Last Admin: 11/12/24 07:46 Dose: 0.5 mg Dextrose (Dextrose 50% 50 Ml Syringe) 25 - 50 ml IV UD PRN; Protocol PRN Reason: Hypoglycemia Protocol Stop: 12/06/24 12:18 Duloxetine HCl (Duloxetine Hcl 20 Mg Cap) 20 mg PO QPM [facility] Stop: 12/06/24 20:59 Last Admin: 11/11/24 21:08 Dose: 20 mg Formoterol Fumarate (Formoterol 20 Mcg/2 Ml Vial) 20 mcg INH BIDR [facility] Stop: 12/08/24 18:59 Last Admin: 11/12/24 07:46 Dose: 20 mcg Glucagon (Glucagon For Inj 1 Mg Vial) 1 mg SQ UD PRN; Protocol PRN Reason: Hypoglycemia Protocol Stop: 12/06/24 12:18 Glucose (Glucose 40% Gel 15 Gm Tube) 15 - 30 gm PO UD PRN; Protocol PRN Reason: Hypoglycemia Protocol Stop: 12/06/24 12:18 Glucose (Glucose 10 Tab/Tube) 4 - 8 tab PO UD PRN; Protocol PRN Reason: Hypoglycemia Protocol Stop: 12/06/24 12:18 Guaifenesin (Guaifenesin 600 Mg Tabcr) 600 mg PO Q12 [facility] Stop: 12/07/24 08:59 Last Admin: 11/12/24 08:17 Dose: 600 mg Heparin Sodium (Beef Lung) (Heparin 10 Unit/Ml 5 Ml Flush) 5 ml FLUSH PRN PRN PRN Reason: Flush Stop: 12/07/24 03:23 Ceftriaxone Sodium (Rocephin) 2,000 mg in 50 mls @ 100 mls/hr IV Q24H [facility] Stop: 11/16/24 13:59 Last Admin: 11/12/24 13:39 Dose: 100 mls/hr Metronidazole (Flagyl) 500 mg in 100 mls @ 100 mls/hr IV Q8H [facility]; Protocol Stop: 11/16/24 13:59 Last Admin: 11/12/24 13:41 Dose: 100 mls/hr Insulin Aspart (Insulin Aspart Per Unit Charge) 0 units SC ACHS [facility] Stop: 12/12/24 07:29 Last Admin: 11/12/24 13:54 Dose: 5 units Insulin Glargine (Lantus Per Unit Charge) 0 units SC QAM [facility]; Protocol Stop: 12/10/24 08:59 Last Admin: 11/12/24 08:58 Dose: Not Given Ipratropium Thomas (Ipratropium [place] Neb Soln 0.02% 0.5mg/2.5ml Vial) 0.5 mg NEB Q6R [facility] Stop: 12/07/24 18:59 Last Admin: 11/12/24 07:46 Dose: Not Given Lactobacillus Acidophilus (Advanced Probiotic 625 Mg Capsule) 1,250 mg PO DAILY [facility] Stop: 12/08/24 08:59 Last Admin: 11/12/24 08:19 Dose: 1,250 mg Levalbuterol HCl (Levalbuterol 1.25 Mg/3 Ml Neb) 1.25 mg NEB Q6R [facility] Stop: 12/07/24 18:59 Last Admin: 11/12/24 07:46 Dose: Not Given Metoprolol Tartrate (Metoprolol Tartrate 50 Mg Tab) 50 mg PO BID [facility] Stop: 12/10/24 08:59 Last Admin: 11/12/24 08:17 Dose: 50 mg Miscellaneous (Carbohydrates For Hypoglycemia ) 15 - 30 gm PO UD PRN PRN Reason: Hypoglycemia Protocol Stop: 12/06/24 12:18 Miscellaneous Information (Pharmacy Glycemic Mgmt Consult) 1 each N/A UD PRN PRN Reason: Consult Stop: 12/06/24 12:18 Ondansetron HCl (Ondansetron Inj 2 Mg/Ml 2 Ml Vial) 4 mg IV Q6H PRN PRN Reason: Nausea And Vomiting Stop: 12/06/24 16:43 Last Admin: 11/10/24 08:20 Dose: 4 mg Pantoprazole Sodium (Pantoprazole 40 Mg Tab) 40 mg PO QAM [facility] Stop: 12/07/24 08:59 Last Admin: 11/12/24 08:17 Dose: 40 mg Prednisone (Prednisone 5 Mg Tab) 5 mg PO BID [facility] Stop: 12/06/24 20:59 Sodium Chloride (Sodium Chlor 7% 4 Ml Neb) 4 ml NEB BIDR [facility] Stop: 12/12/24 18:59 Vitamin D (Cholecalciferol 25 Mcg (1000 Units) Tab) 50 mcg PO QAM [facility] Stop: 12/07/24 08:59 Last Admin: 11/12/24 08:16 Dose: 50 mcg Warfarin Sodium (Warfarin Sod 2.5 Mg Tab) 2.5 mg PO MOWEFR@16 [facility] Stop: 12/11/24 15:59 Warfarin Sodium (Warfarin Sod 5 Mg Tab) 5 mg PO SuTuThSa@1600 [facility] Stop: 12/10/24 15:59 Last Admin: 11/10/24 16:12 Dose: 5 mg
[2024-11-12] MEDS: POTASSIUM CHLORIDE CRTAB 20 MEQ TABCR PO STA (17:53)
[2024-11-12] MEDS: SODIUM CHLOR 7% 4 ML NEB NEB SCH (19:49)
[2024-11-12] MEDS: predniSONE 5 MG TAB PO SCH (21:18)
[2024-11-13 07:43] LABS: Hematocrit (blood only) 35.2 % (42.0-52.0); Hemoglobin 11.6 g/dl (14.0-18.0); Mean Corpuscular Hemoglobin 28.7 pg (25.0-34.0); Mean Corpuscular Volume 87.1 fL (80.0-100.0); Mean Platelet Volume 11.7 fL (9.4-12.4); Platelet Count 179 K/uL (130-400); RDW Coefficient of Variation 14.2 % (11.5-14.5); RDW Standard Deviation 45.1 fL (36.4-46.3); Red Blood Count 4.04 M/uL (4.70-6.10); White Blood Count 6.08 K/ul (4.8-10.8)
--- NOTE | 2024-11-13 07:57 | Hospitalist Progress Note ---
Date of Service November 13, 2024 Assessment & Plan (1) Vomiting: (2) AMS (altered mental status): (3) Pulmonary edema: (4) Chronic steroid use: (5) Polymyalgia rheumatica: (6) HTN, goal below 140/90: (7) Diabetes mellitus, type 2: (8) Hyperlipidemia: (9) Hypertension: (10) Permanent atrial fibrillation: Plan Per admitting service notes with addendum: The patient is an 78-year-old male with a past medical history of A-fib on Coumadin, depression, HLD, DM2, PMR who presents to the ED on 11/06/2024 with complaints of flulike symptoms, found to be positive for flu A, suspicion for aspiration pneumonia and acute hypoxic respiratory failure Assessment and plan: Acute hypoxic respiratory failure COPD exacerbation Influenza A suspected aspiration pneumonia Found to be 77% on room air by EMS, patient's reports vomiting suspicious for aspiration Oxygen improved on 13 L, continue IV Vanco/Zosyn for aspiration pneumonia Found to be positive for influenza A, continue Tamiflu, originally hypotensive on arrival Blood pressure improved with sepsis fluids, lactic acid slowly improving, 5.7 on arrival Continue IV fluids and telemetry monitoring 11/07 currently on 6 L NC continue Zosyn, Tamiflu Hydrocortisone IV Mucinex Nebs q6h obtain sputum culture 11/08 Respiratory status gradually improving On 2 L of O2 via nasal cannula Sputum culture: Pending Continue Zosyn plus Tamiflu started on Perforomist and Pulmicort twice daily Continue Xopenex/Atrovent every 6 hours On IV hydrocortisone 50 mg 3 times daily, taper -> changed to BID -> to daily - finished and resumed home prednisone Mucinex, incentive spirometry, flutter valve Pulmonology following closely 11/10 Pt is on RA, saturating 94% Lung exam with some rhonchi crackles, + cough Feeling very tired HR elevated + nausea/vomiting Speech therapy consulted: Easy to chew diet 11/11 Having some stomach ache, diarrhea, Dr. Ramsey recommends to switch zosyn to rocephin will add flagyl for anaerobic coverage 11/12 Able to have some breakfast Feeling weak, having some JACOBS Otherwise no new complaints Continues to be on RA, no chest pain 2/2 Still with nausea on and off will repeat cxr and will obtain kub Septic shock Secondary to above Adrenal insufficiency Off Levophed and vasopressors On IV hydrocortisone taper Monitor blood pressure closely Resumed usual prednisone dose as IV hydrocortisone taper has completed Acute kidney injury on CKD IV - resolved Admission Cr 1.3--> 2.7 ->1.8 Likely from sepsis, hypotension No signs of obstruction on CT abdomen pelvis Carreno catheter in place Cr now down to 1.3 (11/13/2024) Acute metabolic encephalopathy secondary to above Resolved Elevated troponin: Likely secondary to hypoxia and demand ischemia with recent viral illness No acute EKG changes/chest pain, continue to monitor DM2: On Trulicity/glipizide/metformin at home, hold p.o. medications SSI/glycemic pharmacy consult, 4 times daily BGM Atrial fibrillation Was on metoprolol tartrate 50 mg twice daily at home, held for septic shock heart rate in the 150s, resume metoprolol to tartrate at 25 mg p.o. twice daily to prevent hypotension, monitor blood pressure HR elevated -> resumed usual dose of 50 mg twice daily Coumadin INR daily Polymyalgia rheumatica, on chronic prednisone Resumed usual prednisone as IV hydrocortisone taper has completed Patient is a DNR/DNI DVT prophylaxis: Warfarin Admission and Anticipated Discharge Date Admission Date: November 06, 2024 Subjective Follow-up for septic shock secondary to pneumonia and influenza A infection, possible adrenal insufficiency, etc. Pt laying in bed in NAD, has on and off nausea Denies chest pain, shortness of breath, feeling dizzy or lightheaded Still feels weak, occasional cough discussed w/ RN - not able to take all po meds. will repeat cxr, obtain kub Review of Systems Review of Systems: All systems reviewed & are unremarkable except as noted in Subjective Physical Exam Physical Exam: General- oriented x 3, not in distress, speaks in sentences with no effort or accessory muscle use Eyes- anicteric Neck- no JVD Lungs- + mild rhonchi, crackles - improved Heart- normal rate, regular rhythm; no murmurs Abdomen- normal bowel sounds, nondistended, soft, nontender Extremities- no pretibial edema, no calf tenderness Neuro- alert, oriented x 3; no gross focal neurologic deficits Skin- warm & dry Results & Data Results & Data Vital Signs (Past 12 Hours) Vital Signs Temp Pulse Pulse Resp BP BP Pulse Ox 11/13/24 07:51 11/13/24 07:37 36.5 C 106 H 18 154/68 H 93 11/13/24 03:00 36.6 C 87 17 135/72 91 11/13/24 01:59 98 H 16 93 11/12/24 22:43 36.7 C 82 20 144/82 H 91 11/12/24 21:49 82 11/12/24 20:00 O2 Del Method 11/13/24 07:51 Room Air 11/13/24 07:37 Room Air 11/13/24 03:00 Room Air 11/13/24 01:59 Room Air 11/12/24 22:43 Room Air 11/12/24 21:49 11/12/24 20:00 Room Air Laboratory Results 11/13/24 11/12/24 11/12/24 Range/Units 07:13 21:12 16:59 WBC 6.08 (4.8-10.8) K/ul RBC 4.04 L (4.70-6.10) M/uL Hgb 11.6 L (14.0-18.0) g/dl Hct 35.2 L (42.0-52.0) % MCV 87.1 (80.0-100.0) fL MCH 28.7 (25.0-34.0) pg MCHC 33.0 (32.0-36.0) g/dL RDW Std Deviation 45.1 (36.4-46.3) fL RDW Coeff of Roverto 14.2 (11.5-14.5) % Plt Count 179 (130-400) K/uL MPV 11.7 (9.4-12.4) fL Immature Gran % (Auto) % Neut % (Auto) % Lymph % (Auto) % [place] % (Auto) % Eos % (Auto) % Baso % (Auto) % Neut # (Auto) (1.40-6.50) K/uL Lymph # (Auto) (1.20-3.40) K/uL [place] # (Auto) (0.11-0.59) K/uL Eos # (Auto) (0.00-0.50) K/uL Baso # (Auto) (0.00-0.20) K/uL Immature Gran # (Auto) (0.01-0.20) K/uL Echinocytes PT Pending INR Pending Sodium Pending Potassium Pending Chloride Pending Carbon Dioxide Pending Anion Gap Pending BUN Pending Creatinine Pending Est Cr Clr Drug Dosing Pending eGFR Pending BUN/Creatinine Ratio Pending Glucose Pending POC Glucose 162 H 132 H (70-99) mg/dl Calcium Pending Phosphorus Pending Magnesium Pending 11/12/24 11/12/24 Range/Units 11:50 06:52 WBC (4.8-10.8) K/ul RBC (4.70-6.10) M/uL Hgb (14.0-18.0) g/dl Hct (42.0-52.0) % MCV (80.0-100.0) fL MCH (25.0-34.0) pg MCHC (32.0-36.0) g/dL RDW Std Deviation (36.4-46.3) fL RDW Coeff of Roverto (11.5-14.5) % Plt Count (130-400) K/uL MPV (9.4-12.4) fL Immature Gran % (Auto) 2.0 % Neut % (Auto) 66.4 % Lymph % (Auto) 17.1 % [place] % (Auto) 11.8 % Eos % (Auto) 2.5 % Baso % (Auto) 0.2 % Neut # (Auto) 4.24 (1.40-6.50) K/uL Lymph # (Auto) 1.09 L (1.20-3.40) K/uL [place] # (Auto) 0.75 H (0.11-0.59) K/uL Eos # (Auto) 0.16 (0.00-0.50) K/uL Baso # (Auto) 0.01 (0.00-0.20) K/uL Immature Gran # (Auto) 0.13 (0.01-0.20) K/uL Echinocytes 1+ PT INR Sodium Potassium Chloride Carbon Dioxide Anion Gap BUN Creatinine Est Cr Clr Drug Dosing eGFR BUN/Creatinine Ratio Glucose POC Glucose 210 H (70-99) mg/dl Calcium Phosphorus Magnesium Medications Administered Current Inpatient Medications Acetaminophen (Acetaminophen 500 Mg Tab) 500 mg PO Q6H PRN PRN Reason: fever/pain Stop: 12/09/24 05:59 Last Admin: 11/12/24 20:13 Dose: 500 mg Albuterol (Albut/Ipratrop 3mg/0.5mg Neb 3 Ml Vial) 3 ml NEB Q6R PRN; Protocol PRN Reason: Shortness Of Breath Or Wheezing Stop: 12/06/24 14:29 Last Admin: 11/12/24 13:51 Dose: 3 ml Budesonide (Budesonide 0.5 Mg/2 Ml Vial (Pulmicort)) 0.5 mg NEB BIDR [facility] Stop: 12/08/24 18:59 Last Admin: 11/12/24 19:49 Dose: 0.5 mg Dextrose (Dextrose 50% 50 Ml Syringe) 25 - 50 ml IV UD PRN; Protocol PRN Reason: Hypoglycemia Protocol Stop: 12/06/24 12:18 Duloxetine HCl (Duloxetine Hcl 20 Mg Cap) 20 mg PO QPM [facility] Stop: 12/06/24 20:59 Last Admin: 11/12/24 20:15 Dose: 20 mg Formoterol Fumarate (Formoterol 20 Mcg/2 Ml Vial) 20 mcg INH BIDR [facility] Stop: 12/08/24 18:59 Last Admin: 11/12/24 19:49 Dose: 20 mcg Glucagon (Glucagon For Inj 1 Mg Vial) 1 mg SQ UD PRN; Protocol PRN Reason: Hypoglycemia Protocol Stop: 12/06/24 12:18 Glucose (Glucose 40% Gel 15 Gm Tube) 15 - 30 gm PO UD PRN; Protocol PRN Reason: Hypoglycemia Protocol Stop: 12/06/24 12:18 Glucose (Glucose 10 Tab/Tube) 4 - 8 tab PO UD PRN; Protocol PRN Reason: Hypoglycemia Protocol Stop: 12/06/24 12:18 Guaifenesin (Guaifenesin 600 Mg Tabcr) 600 mg PO Q12 [facility] Stop: 12/07/24 08:59 Last Admin: 11/13/24 07:30 Dose: 600 mg Heparin Sodium (Beef Lung) (Heparin 10 Unit/Ml 5 Ml Flush) 5 ml FLUSH PRN PRN PRN Reason: Flush Stop: 12/07/24 03:23 Ceftriaxone Sodium (Rocephin) 2,000 mg in 50 mls @ 100 mls/hr IV Q24H [facility] Stop: 11/16/24 13:59 Last Infusion: 11/12/24 14:27 Dose: Infused Metronidazole (Flagyl) 500 mg in 100 mls @ 100 mls/hr IV Q8H [facility]; Protocol Stop: 11/16/24 13:59 Last Infusion: 11/13/24 06:49 Dose: Infused Insulin Aspart (Insulin Aspart Per Unit Charge) 0 units SC ACHS [facility] Stop: 12/12/24 07:29 Last Admin: 11/12/24 21:17 Dose: 1 units Insulin Glargine (Lantus Per Unit Charge) [facility] [place] Protocol Stop: 12/10/24 08:59 Last Admin: 11/12/24 08:58 Dose: Not Given Ipratropium [place] (Ipratropium [place] Neb Soln 0.02% 0.5mg/2.5ml Vial) 0.5 mg NEB Q6R [facility] Stop: 12/07/24 18:59 Last Admin: 11/13/24 01:58 Dose: 0.5 mg Lactobacillus Acidophilus (Advanced Probiotic 625 Mg Capsule) 1,250 mg PO DAILY [facility] Stop: 12/08/24 08:59 Last Admin: 11/13/24 07:29 Dose: 1,250 mg Levalbuterol HCl (Levalbuterol 1.25 Mg/3 Ml Neb) 1.25 mg NEB Q6R [facility] Stop: 12/07/24 18:59 Last Admin: 11/13/24 01:58 Dose: 1.25 mg Metoprolol Tartrate (Metoprolol Tartrate 50 Mg Tab) 50 mg PO BID [facility] Stop: 12/10/24 08:59 Last Admin: 11/13/24 07:37 Dose: 50 mg Miscellaneous (Carbohydrates For Hypoglycemia ) 15 - 30 gm PO UD PRN PRN Reason: Hypoglycemia Protocol Stop: 12/06/24 12:18 Miscellaneous Information (Pharmacy Glycemic Mgmt Consult) 1 each N/A UD PRN PRN Reason: Consult Stop: 12/06/24 12:18 Ondansetron HCl (Ondansetron Inj 2 Mg/Ml 2 Ml Vial) 4 mg IV Q6H PRN PRN Reason: Nausea And Vomiting Stop: 12/06/24 16:43 Last Admin: 11/13/24 07:43 Dose: 4 mg Pantoprazole Sodium (Pantoprazole 40 Mg Tab) [facility] [place] Stop: 12/07/24 08:59 Last Admin: 11/13/24 07:30 Dose: 40 mg Prednisone (Prednisone 5 Mg Tab) 5 mg PO BID [facility] Stop: 12/06/24 20:59 Last Admin: 11/12/24 21:18 Dose: 5 mg Sodium Chloride (Sodium Chlor 7% 4 Ml Neb) 4 ml NEB BIDR [facility] Stop: 12/12/24 18:59 Last Admin: 11/12/24 19:49 Dose: 4 ml Vitamin D (Cholecalciferol 25 Mcg (1000 Units) Tab) 50 mcg PO QAM [facility] Stop: 12/07/24 08:59 Last Admin: 11/13/24 07:29 Dose: 50 mcg Warfarin Sodium (Warfarin Sod 2.5 Mg Tab) 2.5 mg PO MOWEFR@16 [facility] Stop: 12/11/24 15:59 Warfarin Sodium (Warfarin Sod 5 Mg Tab) 5 mg PO SuTuThSa@1600 [facility] Stop: 12/10/24 15:59 Last Admin: 11/10/24 16:12 Dose: 5 mg
[2024-11-13 08:17] LABS: INR 1.8 (0.9-1.1); Prothrombin Time 18.7 Seconds (9.0-12.0)
[2024-11-13 08:20] LABS: BUN Creatinine Ratio 17.3 (10-20); Calcium 8.4 mg/dl (8.6-10.3); Creatinine Clr Calc Pharmacy 50.9 ml/min; Magnesium 1.6 mg/dl (1.7-2.4); Phosphorus 2.5 mg/dl (2.5-4.9)
--- NOTE | 2024-11-13 12:36 | Pharmacy Report ---
Pharmacy Glycemic Short Note 2 - Date of Service November 13, 2024 - Glycemic Short BSG Results (Last 24 hours): 11/12/24 11/12/24 11/13/24 16:59 21:12 07:13 Glucose 156 H POC Glucose 132 H 162 H 11/13/24 11/13/24 08:05 11:46 Glucose POC Glucose 143 H 184 H OUTPATIENT ANTIDIABETIC REGIMEN: * Metformin 1 g PO BIDM * Glipizide 20 mg PO qAM, 10 mg PO qPM * Trulicity 4.5 mg SC weekly HbA1c: 8.1% (11/07/24) ASSESSMENT: 11/13: * Received 9 units of insulin yesterday, all bolus. BSGs were 51-086-898-162 mg/dL. * Home prednisone 5 mg bid was resumed last evening. Remains on abx for infxn. Tolerating diet. * No changes to insulin regimen today but Novolog may need tightened with steroids resuming. 11/10: * Fasting BSG near goal. Increased compared to previous day, however patient received no basal insulin on 11/09. * Hydrocortisone IV was discontinued after AM dose today. No current active steroid orders. * Will decrease lantus scale and loosen CF/CR starting 11/12 AM. 11/09: * Mitchel received 47 units of SQ insulin yesterday (10 units basal + 37 units bolus) * Fasting BSG is trending down, 170 -> 118 mg/dL. Will decrease basal insulin 50% today and change to dose per scale starting 11/10 AM. * Post prandial BSGs improved following adjustment to Novolog CF and CR last evening. Will continue this for now. Hydrocortisone decreased from q8h to q12. May need to loosen parameters tomorrow based on post prandial trend. 11/08: * BSGs elevated the last 24h: 006-704-556-230mg/dL. Received 10 units of basal and 20 units of bolus insulin yesterday. * Tolerating diet, continues on hydrocortisone 50mg IV TID (taper) and IV antibiotics. * Lantus 10 units X 1 again today. Will reassess basal tomorrow given hydrocortisone taper. Novolog tightened for improved prandial coverage. 11/07: * Mr. Mcpherson received no insulin in the hospital last night. BSGs were 109-85-87 mg/dL. * Fasting BSG was 155 mg/dL this AM. Basal insulin initially held off on due to NPO status but patient is now tolerating a T2DM diet so will add a one time basal dose with lunch. * Steroids on board in the form of IV Hydrocortisone 50 mg TID. This will be tapered to home prednisone dose over the next 96 hours. In the meantime, will tighten both CF and CR given addition of diet. Continues on Zosyn. 11/06: * RR is an 78 year old male who presented to ED via EMS after being found barely responsive in bed this morning (concern for aspiration event) * Initiated on broad spectrum antibiotics for sepsis secondary to possible aspiration pneumonia (vancomycin and Zosyn). Also started on Tamiflu for influenza. * Hyperglycemic on presentation (BSG of 295 mg/dL), but improved to 109 mg/dL on admission with IV fluid boluses (~3000 mL) only * NPO at this time given aspiration risk - will hold off on basal insulin at this time * Continuing on outpatient prednisone 5 mg PO BID * Prior inpatient glycemic data influenced by IV steroids PLAN FOR INPATIENT GLYCEMIC CONTROL: * Hold outpatient oral diabetes medications * Basal insulin * Lantus 0-5 units SC qAM * Bolus insulin * NovoLog per scale ACHS or Q6hrs while NPO * Goal Range: Low 110 mg/dL - High 140 mg/dL * Correction Factor: 30 mg/dL/unit * Nutritional / Prandial insulin per carb ratio of 1 unit per 10 grams CHO consumed
[2024-11-13] MEDS: MAGNESIUM SULFATE / D5W 1 GM/100 ML BAG IV ONE (13:43)
--- NOTE | 2024-11-13 14:04 | XRay Report ---
Chest radiograph, one view History: Nausea Comparison: 11/06/2024, 11/09/2024 Findings: Single AP view of the chest performed. A small left pleural effusion remains. The lower lung perihilar opacities appear resolved. No pneumothorax. The cardiomediastinal silhouette is within normal limits. Normal pulmonary vascularity. No evidence for lymphadenopathy. No visualized bony or soft tissue abnormality. Impression: Persistent small left pleural effusion, otherwise with resolved perihilar pulmonary opacities Electronically signed by Brenden Andrade 11-13-2024 2:04 PM
--- NOTE | 2024-11-13 14:04 | XRay Report ---
Abdominal radiograph, one view History: Abdominal pain Comparison: None Findings: Single AP view of the abdomen performed. The bowel gas pattern appears nonobstructive. There is minimal gas seen throughout the large bowel. No pneumatosis or portal venous gas. No abnormal calcifications project over the abdomen. No acute abnormality of the bony structures. Impression: Nonobstructive bowel gas pattern Electronically signed by Brenden Andrade 11-13-2024 2:04 PM
[2024-11-13] MEDS: WARFARIN SOD 2 MG TAB PO SCH (15:21)
--- NOTE | 2024-11-14 10:17 | Hospitalist Progress Note ---
Date of Service November 14, 2024 Assessment & Plan (1) Vomiting: (2) AMS (altered mental status): (3) Pulmonary edema: (4) Chronic steroid use: (5) Polymyalgia rheumatica: (6) HTN, goal below 140/90: (7) Diabetes mellitus, type 2: (8) Hyperlipidemia: (9) Hypertension: (10) Permanent atrial fibrillation: Plan Per admitting service notes with addendum: The patient is an 78-year-old male with a past medical history of A-fib on Coumadin, depression, HLD, DM2, PMR who presents to the ED on 11/06/2024 with complaints of flulike symptoms, found to be positive for flu A, suspicion for aspiration pneumonia and acute hypoxic respiratory failure Assessment and plan: Acute hypoxic respiratory failure COPD exacerbation Influenza A suspected aspiration pneumonia Found to be 77% on room air by EMS, patient's reports vomiting suspicious for aspiration Oxygen improved on 13 L, continue IV Vanco/Zosyn for aspiration pneumonia Found to be positive for influenza A, continued Tamiflu (finished course), originally hypotensive on arrival Blood pressure improved with sepsis fluids, lactic acid slowly improving, 5.7 on arrival Continue IV fluids and telemetry monitoring 11/07 currently on 6 L NC continue Zosyn, Tamiflu Hydrocortisone IV Mucinex Nebs q6h obtain sputum culture 11/08 Respiratory status gradually improving On 2 L of O2 via nasal cannula Sputum culture: Pending Continue Zosyn plus Tamiflu started on Perforomist and Pulmicort twice daily Continue Xopenex/Atrovent every 6 hours On IV hydrocortisone 50 mg 3 times daily, taper -> changed to BID -> to daily - finished and resumed home prednisone Mucinex, incentive spirometry, flutter valve Pulmonology following closely 11/10 Pt is on RA, saturating 94% Lung exam with some rhonchi crackles, + cough Feeling very tired HR elevated + nausea/vomiting Speech therapy consulted: Easy to chew diet 11/11 Having some stomach ache, diarrhea, Dr. Ramsey recommends to switch zosyn to rocephin will add flagyl for anaerobic coverage 11/12 Able to have some breakfast Feeling weak, having some JACOBS Otherwise no new complaints Continues to be on RA, no chest pain 2/ Still with nausea on and off repeated cxr and obtained kub - no concerns Septic shock Secondary to above Adrenal insufficiency Off Levophed and vasopressors On IV hydrocortisone taper Monitor blood pressure closely Resumed usual prednisone dose as IV hydrocortisone taper has completed Acute kidney injury on CKD IV - resolved Admission Cr 1.3--> 2.7 ->1.8 Likely from sepsis, hypotension No signs of obstruction on CT abdomen pelvis Carreno catheter in place Cr now down to 1.3 (11/13/2024) Acute metabolic encephalopathy secondary to above Resolved Elevated troponin: Likely secondary to hypoxia and demand ischemia with recent viral illness No acute EKG changes/chest pain, continue to monitor DM2: On Trulicity/glipizide/metformin at home, hold p.o. medications SSI/glycemic pharmacy consult, 4 times daily BGM Atrial fibrillation Was on metoprolol tartrate 50 mg twice daily at home, held for septic shock heart rate in the 150s, resume metoprolol to tartrate at 25 mg p.o. twice daily to prevent hypotension, monitor blood pressure HR elevated -> resumed usual dose of 50 mg twice daily Coumadin dose decreased INR daily Polymyalgia rheumatica, on chronic prednisone Resumed usual prednisone as IV hydrocortisone taper has completed Patient is a DNR/DNI DVT prophylaxis: Warfarin Admission and Anticipated Discharge Date Admission Date: November 06, 2024 Subjective Follow-up for septic shock secondary to pneumonia and influenza A infection, possible adrenal insufficiency, etc. Pt laying in bed in NAD, says he feels better today. Nausea much improved today Denies chest pain, shortness of breath, feeling dizzy or lightheaded Still feels weak, occasional cough repeated cxr, and obtained kub yesterday - no concerns discussed w/ child care aide of Systems Review of Systems: All systems reviewed & are unremarkable except as noted in Subjective Physical Exam Physical Exam: General- oriented x 3, not in distress, speaks in sentences with no effort or accessory muscle use Eyes- anicteric Neck- no JVD Lungs- + mild rhonchi, crackles - improved Heart- normal rate, regular rhythm; no murmurs Abdomen- normal bowel sounds, nondistended, soft, nontender Extremities- no pretibial edema, no calf tenderness Neuro- alert, oriented x 3; no gross focal neurologic deficits Skin- warm & dry Results & Data Results & Data Vital Signs (Past 12 Hours) Vital Signs Temp Pulse Pulse Resp BP Pulse Ox O2 Del Method 11/14/24 08:03 Room Air 11/14/24 08:00 36.3 C L 112 H 17 156/91 H 95 Room Air 11/14/24 07:26 94 H 14 94 Room Air 11/14/24 07:16 95 H 11/14/24 03:00 36.7 C 91 H 16 142/72 H 92 Room Air 11/14/24 01:43 101 H 17 91 Room Air, Nasal Cannula 11/13/24 23:47 36.5 C 90 16 148/81 H 92 Room Air FiO2 11/14/24 08:03 11/14/24 08:00 11/14/24 07:26 21 11/14/24 07:16 11/14/24 03:00 11/14/24 01:43 11/13/24 23:47 Laboratory Results 11/14/24 11/14/24 11/14/24 Range/Units 12:17 10:54 07:59 WBC 8.66 (4.8-10.8) K/ul RBC 3.86 L (4.70-6.10) M/uL Hgb 11.3 L (14.0-18.0) g/dl Hct 33.9 L (42.0-52.0) % MCV 87.8 (80.0-100.0) fL MCH 29.3 (25.0-34.0) pg MCHC 33.3 (32.0-36.0) g/dL RDW Std Deviation 45.6 (36.4-46.3) fL RDW Coeff of Roverto 14.3 (11.5-14.5) % Plt Count 188 (130-400) K/uL MPV 12.4 (9.4-12.4) fL Sodium 135 L (136-145) mmol/L Potassium 3.9 (3.5-5.1) mmol/L Chloride 106 (98-107) mmol/L Carbon Dioxide 26 (21-32) mmol/L Anion Gap 3 (3-11) BUN 19 (6-23) mg/dl Creatinine 1.40 (0.6-1.4) mg/dl Est Cr Clr Drug Dosing 46.2 ml/min eGFR 50.81 BUN/Creatinine Ratio 13.6 (10-20) Glucose 236 H (70-99(Fasting)) mg/dl POC Glucose 227 H 156 H (70-99) mg/dl Calcium 7.5 L (8.6-10.3) mg/dl Phosphorus 1.6 L (2.5-4.9) mg/dl Magnesium 1.6 L (1.7-2.4) mg/dl 11/13/24 11/13/24 Range/Units 20:48 16:27 WBC (4.8-10.8) K/ul RBC (4.70-6.10) M/uL Hgb (14.0-18.0) g/dl Hct (42.0-52.0) % MCV (80.0-100.0) fL MCH (25.0-34.0) pg MCHC (32.0-36.0) g/dL RDW Std Deviation (36.4-46.3) fL RDW Coeff of Roverto (11.5-14.5) % Plt Count (130-400) K/uL MPV (9.4-12.4) fL Sodium (136-145) mmol/L Potassium (3.5-5.1) mmol/L Chloride (98-107) mmol/L Carbon Dioxide (21-32) mmol/L Anion Gap (3-11) BUN (6-23) mg/dl Creatinine (0.6-1.4) mg/dl Est Cr Clr Drug Dosing ml/min eGFR BUN/Creatinine Ratio (10-20) Glucose (70-99(Fasting)) mg/dl POC Glucose 221 H 245 H (70-99) mg/dl Calcium (8.6-10.3) mg/dl Phosphorus (2.5-4.9) mg/dl Magnesium (1.7-2.4) mg/dl Medications Administered Current Inpatient Medications Acetaminophen (Acetaminophen 500 Mg Tab) 500 mg PO Q6H PRN PRN Reason: fever/pain Stop: 12/09/24 05:59 Last Admin: 11/14/24 08:10 Dose: 500 mg Albuterol (Albut/Ipratrop 3mg/0.5mg Neb 3 Ml Vial) 3 ml NEB Q6R PRN; Protocol PRN Reason: Shortness Of Breath Or Wheezing Stop: 12/06/24 14:29 Last Admin: 11/12/24 13:51 Dose: 3 ml Budesonide (Budesonide 0.5 Mg/2 Ml Vial (Pulmicort)) 0.5 mg NEB BIDR [facility] Stop: 12/08/24 18:59 Last Admin: 11/14/24 07:20 Dose: 0.5 mg Dextrose (Dextrose 50% 50 Ml Syringe) 25 - 50 ml IV UD PRN; Protocol PRN Reason: Hypoglycemia Protocol Stop: 12/06/24 12:18 Duloxetine HCl (Duloxetine Hcl 20 Mg Cap) 20 mg PO QPM [facility] Stop: 12/06/24 20:59 Last Admin: 11/13/24 20:35 Dose: 20 mg Formoterol Fumarate (Formoterol 20 Mcg/2 Ml Vial) 20 mcg INH BIDR [facility] Stop: 12/08/24 18:59 Last Admin: 11/14/24 07:26 Dose: 20 mcg Glucagon (Glucagon For Inj 1 Mg Vial) 1 mg SQ UD PRN; Protocol PRN Reason: Hypoglycemia Protocol Stop: 12/06/24 12:18 Glucose (Glucose 40% Gel 15 Gm Tube) 15 - 30 gm PO UD PRN; Protocol PRN Reason: Hypoglycemia Protocol Stop: 12/06/24 12:18 Glucose (Glucose 10 Tab/Tube) 4 - 8 tab PO UD PRN; Protocol PRN Reason: Hypoglycemia Protocol Stop: 12/06/24 12:18 Guaifenesin (Guaifenesin 600 Mg Tabcr) 600 mg PO Q12 [facility] Stop: 12/07/24 08:59 Last Admin: 11/14/24 08:08 Dose: 600 mg Heparin Sodium (Beef Lung) (Heparin 10 Unit/Ml 5 Ml Flush) 5 ml FLUSH PRN PRN PRN Reason: Flush Stop: 12/07/24 03:23 Ceftriaxone Sodium (Rocephin) 2,000 mg in 50 mls @ 100 mls/hr IV Q24H [facility] Stop: 11/16/24 13:59 Last Infusion: 11/13/24 13:14 Dose: Infused Metronidazole (Flagyl) 500 mg in 100 mls @ 100 mls/hr IV Q8H [facility]; Protocol Stop: 11/16/24 13:59 Last Infusion: 11/14/24 06:59 Dose: Infused Insulin Aspart (Insulin Aspart Per Unit Charge) 0 units SC ACHS [facility] Stop: 12/12/24 07:29 Last Admin: 11/14/24 09:05 Dose: 6 units Insulin Glargine (Lantus Per Unit Charge) 0 units SC Q[facility]W [facility]; Protocol Stop: 12/10/24 08:59 Last Admin: 11/14/24 09:06 Dose: 5 units Ipratropium [place] (Ipratropium [place] Neb Soln 0.02% 0.5mg/2.5ml Vial) 0.5 mg NEB Q6R [facility] Stop: 12/07/24 18:59 Last Admin: 11/14/24 07:23 Dose: Not Given Lactobacillus Acidophilus (Advanced Probiotic 625 Mg Capsule) 1,250 mg PO DAILY [facility] Stop: 12/08/24 08:59 Last Admin: 11/14/24 08:09 Dose: Not Given Levalbuterol HCl (Levalbuterol 1.25 Mg/3 Ml Neb) 1.25 mg NEB Q6R [facility] Stop: 12/07/24 18:59 Last Admin: 11/14/24 07:24 Dose: Not Given Metoprolol Tartrate (Metoprolol Tartrate 50 Mg Tab) 50 mg PO BID [facility] Stop: 12/10/24 08:59 Last Admin: 11/14/24 08:09 Dose: 50 mg Miscellaneous (Carbohydrates For Hypoglycemia ) 15 - 30 gm PO UD PRN PRN Reason: Hypoglycemia Protocol Stop: 12/06/24 12:18 Miscellaneous Information (Pharmacy Glycemic Mgmt Consult) 1 each N/A UD PRN PRN Reason: Consult Stop: 12/06/24 12:18 Ondansetron HCl (Ondansetron Inj 2 Mg/Ml 2 Ml Vial) 4 mg IV Q6H PRN PRN Reason: Nausea And Vomiting Stop: 12/06/24 16:43 Last Admin: 11/13/24 07:43 Dose: 4 mg Pantoprazole Sodium (Pantoprazole 40 Mg Tab) 40 mg PO QAM [facility] Stop: 12/07/24 08:59 Last Admin: 11/14/24 08:08 Dose: 40 mg Prednisone (Prednisone 5 Mg Tab) 5 mg PO BID [facility] Stop: 12/06/24 20:59 Last Admin: 11/14/24 08:08 Dose: 5 mg Sodium Chloride (Sodium Chlor 7% 4 Ml Neb) 4 ml NEB BIDR [facility] Stop: 12/12/24 18:59 Last Admin: 11/14/24 07:21 Dose: 4 ml Vitamin D (Cholecalciferol 25 Mcg (1000 Units) Tab) 50 mcg PO QAM [facility] Stop: 12/07/24 08:59 Last Admin: 11/14/24 08:08 Dose: 50 mcg Warfarin Sodium (Warfarin Sod 2.5 Mg Tab) 2.5 mg PO MOWEFR@16 [facility] Stop: 12/11/24 15:59 Warfarin Sodium (Warfarin Sod 5 Mg Tab) 5 mg PO SuTuThSa@1600 [facility] Stop: 12/10/24 15:59 Last Admin: 11/10/24 16:12 Dose: 5 mg Warfarin Sodium (Warfarin Sod 2 Mg Tab) 2 mg PO DAILY@1600 [facility] Stop: 12/13/24 15:59 Last Admin: 11/13/24 15:21 Dose: 2 mg
[2024-11-14 11:17] LABS: Hematocrit (blood only) 33.9 % (42.0-52.0); Hemoglobin 11.3 g/dl (14.0-18.0); Mean Corpuscular Hemoglobin 29.3 pg (25.0-34.0); Mean Corpuscular Hgb Conc 33.3 g/dL (32.0-36.0); Mean Corpuscular Volume 87.8 fL (80.0-100.0); Mean Platelet Volume 12.4 fL (9.4-12.4); Platelet Count 188 K/uL (130-400); RDW Coefficient of Variation 14.3 % (11.5-14.5); RDW Standard Deviation 45.6 fL (36.4-46.3); Red Blood Count 3.86 M/uL (4.70-6.10); White Blood Count 8.66 K/ul (4.8-10.8)
[2024-11-14 11:32] LABS: BUN Creatinine Ratio 13.6 (10-20); Calcium 7.5 mg/dl (8.6-10.3); Creatinine Clr Calc Pharmacy 46.2 ml/min; Magnesium 1.6 mg/dl (1.7-2.4); Phosphorus 1.6 mg/dl (2.5-4.9); Potassium 3.9 mmol/L (3.5-5.1)
[2024-11-14] MEDS ORDERED: SODIUM PHOSPHATE 3 MMOL/1 ML INFUSION IV STA (11:49)
[2024-11-14] MEDS: SODIUM PHOSPHATE 12 MMOL in SODIUM CHLORIDE 0.9% 250 ML IV ONE (13:14)
[2024-11-14] MEDS: METOPROLOL TARTRATE 25 MG TAB PO ONE (14:19)
[2024-11-14] MEDS: WARFARIN SOD 2.5 MG TAB PO SCH (16:22)
[2024-11-14] MEDS: MAGNESIUM SULFATE / D5W 1 GM/100 ML BAG IV ONE (16:22)
[2024-11-14] MEDS: METOPROLOL SUCC 50MG EXT REL TAB PO SCH (21:03)
[2024-11-15 06:06] LABS: Hematocrit (blood only) 32.2 % (42.0-52.0); Hemoglobin 10.7 g/dl (14.0-18.0); Mean Corpuscular Hemoglobin 28.6 pg (25.0-34.0); Mean Corpuscular Hgb Conc 33.2 g/dL (32.0-36.0); Mean Corpuscular Volume 86.1 fL (80.0-100.0); Mean Platelet Volume 11.8 fL (9.4-12.4); Platelet Count 227 K/uL (130-400); RDW Coefficient of Variation 14.2 % (11.5-14.5); RDW Standard Deviation 44.6 fL (36.4-46.3); Red Blood Count 3.74 M/uL (4.70-6.10); White Blood Count 8.41 K/ul (4.8-10.8)
[2024-11-15 06:29] LABS: BUN Creatinine Ratio 12.1 (10-20); Calcium 7.8 mg/dl (8.6-10.3); Creatinine Clr Calc Pharmacy 52.2 ml/min; Magnesium 1.7 mg/dl (1.7-2.4); Phosphorus 2.2 mg/dl (2.5-4.9); Potassium 3.6 mmol/L (3.5-5.1)
[2024-11-15 06:39] LABS: INR 2.1 (0.9-1.1); Prothrombin Time 21.7 Seconds (9.0-12.0)
[2024-11-15] MEDS ORDERED: POTASSIUM PHOS 3 MMOL/1 ML INFUSION IV STA (08:28)
--- NOTE | 2024-11-15 09:20 | Pharmacy Report ---
Pharmacy Glycemic Short Note 2 - Date of Service November 15, 2024 - Glycemic Short BSG Results (Last 24 hours): 11/14/24 11/14/24 11/14/24 10:54 12:17 17:00 Glucose 236 H POC Glucose 227 H 162 H 11/14/24 11/15/24 11/15/24 20:46 05:37 08:13 Glucose 148 H POC Glucose 153 H 140 H OUTPATIENT ANTIDIABETIC REGIMEN: * Metformin 1 g PO BIDM * Glipizide 20 mg PO qAM, 10 mg PO qPM * Trulicity 4.5 mg SC weekly HbA1c: 8.1% (11/07/24) ASSESSMENT: 11/15: * Received 26 units of insulin yesterday, 5 units basal. * Remains on home prednisone 5 mg PO BID, Rocephin + Flagyl. Tolerating diet. * Blood sugars well controlled with tightening NovoLog CF/CR yesterday, continue. * Fasting at goal, continue Lantus. 11/13: * Received 9 units of insulin yesterday, all bolus. BSGs were 30-109-446-162 mg/dL. * Home prednisone 5 mg bid was resumed last evening. Remains on abx for infxn. Tolerating diet. * No changes to insulin regimen today but Novolog may need tightened with steroids resuming. 11/10: * Fasting BSG near goal. Increased compared to previous day, however patient received no basal insulin on 11/09. * Hydrocortisone IV was discontinued after AM dose today. No current active steroid orders. * Will decrease lantus scale and loosen CF/CR starting 11/12 AM. 11/09: * Mitchel received 47 units of SQ insulin yesterday (10 units basal + 37 units bolus) * Fasting BSG is trending down, 170 -> 118 mg/dL. Will decrease basal insulin 50% today and change to dose per scale starting 11/10 AM. * Post prandial BSGs improved following adjustment to Novolog CF and CR last evening. Will continue this for now. Hydrocortisone decreased from q8h to q12. May need to loosen parameters tomorrow based on post prandial trend. 11/08: * BSGs elevated the last 24h: 044-454-430-230mg/dL. Received 10 units of basal and 20 units of bolus insulin yesterday. * Tolerating diet, continues on hydrocortisone 50mg IV TID (taper) and IV antibiotics. * Lantus 10 units X 1 again today. Will reassess basal tomorrow given hydrocortisone taper. Novolog tightened for improved prandial coverage. 11/07: * Mr. Mcpherson received no insulin in the hospital last night. BSGs were 109-85-87 mg/dL. * Fasting BSG was 155 mg/dL this AM. Basal insulin initially held off on due to NPO status but patient is now tolerating a T2DM diet so will add a one time basal dose with lunch. * Steroids on board in the form of IV Hydrocortisone 50 mg TID. This will be tapered to home prednisone dose over the next 96 hours. In the meantime, will tighten both CF and CR given addition of diet. Continues on Zosyn. 11/06: * RR is an 78 year old male who presented to ED via EMS after being found barely responsive in bed this morning (concern for aspiration event) * Initiated on broad spectrum antibiotics for sepsis secondary to possible as piration pneumonia (vancomycin and Zosyn). Also started on Tamiflu for influenza. * Hyperglycemic on presentation (BSG of 295 mg/dL), but improved to 109 mg/dL on admission with IV fluid boluses (~3000 mL) only * NPO at this time given aspiration risk - will hold off on basal insulin at this time * Continuing on outpatient prednisone 5 mg PO BID * Prior inpatient glycemic data influenced by IV steroids PLAN FOR INPATIENT GLYCEMIC CONTROL: * Hold outpatient diabetes medications * Basal insulin * Lantus 0-5 units SC qAM (5 units for BSG > 120) * Bolus insulin * NovoLog per scale ACHS or Q6hrs while NPO * Goal Range: Low 110 mg/dL - High 140 mg/dL * Correction Factor: 25 mg/dL/unit * Nutritional / Prandial insulin per carb ratio of 1 unit per 6 grams CHO consumed
[2024-11-15] MEDS: MAGNESIUM SULFATE / D5W 1 GM/100 ML BAG IV ONE (09:26)
[2024-11-15] MEDS: POTASSIUM PHOSPHATE 15 MMOL in SODIUM CHLORIDE 0.9% 250 ML IV ONE (10:00)
--- NOTE | 2024-11-15 17:27 | Hospitalist Progress Note ---
Date of Service November 15, 2024 Assessment & Plan (1) Vomiting: (2) AMS (altered mental status): (3) Pulmonary edema: (4) Chronic steroid use: (5) Polymyalgia rheumatica: (6) HTN, goal below 140/90: (7) Diabetes mellitus, type 2: (8) Hyperlipidemia: (9) Hypertension: (10) Permanent atrial fibrillation: Plan Per admitting service notes with addendum: The patient is an 78-year-old male with a past medical history of A-fib on Coumadin, depression, HLD, DM2, PMR who presents to the ED on 11/06/2024 with complaints of flulike symptoms, found to be positive for flu A, suspicion for aspiration pneumonia and acute hypoxic respiratory failure Assessment and plan: Acute hypoxic respiratory failure COPD exacerbation Influenza A suspected aspiration pneumonia Found to be 77% on room air by EMS, patient's reports vomiting suspicious for aspiration Oxygen improved on 13 L, continue IV Vanco/Zosyn for aspiration pneumonia Found to be positive for influenza A, continued Tamiflu (finished course), originally hypotensive on arrival Blood pressure improved with sepsis fluids, lactic acid slowly improving, 5.7 on arrival Continue IV fluids and telemetry monitoring 11/07 currently on 6 L NC continue Zosyn, Tamiflu Hydrocortisone IV Mucinex Nebs q6h obtain sputum culture 11/08 Respiratory status gradually improving On 2 L of O2 via nasal cannula Sputum culture: Pending Continue Zosyn plus Tamiflu started on Perforomist and Pulmicort twice daily Continue Xopenex/Atrovent every 6 hours On IV hydrocortisone 50 mg 3 times daily, taper -> changed to BID -> to daily - finished and resumed home prednisone Mucinex, incentive spirometry, flutter valve Pulmonology following closely 11/10 Pt is on RA, saturating 94% Lung exam with some rhonchi crackles, + cough Feeling very tired HR elevated + nausea/vomiting Speech therapy consulted: Easy to chew diet 11/11 Having some stomach ache, diarrhea, Dr. Ramsey recommends to switch zosyn to rocephin will add flagyl for anaerobic coverage 11/12 Able to have some breakfast Feeling weak, having some JACOBS Otherwise no new complaints Continues to be on RA, no chest pain 2/ Still with nausea on and off repeated cxr and obtained kub - no concerns /4 Pt feels better, nausea improved Septic shock Secondary to above Adrenal insufficiency Off Levophed and vasopressors On IV hydrocortisone taper Monitor blood pressure closely Resumed usual prednisone dose as IV hydrocortisone taper has completed Acute kidney injury on CKD IV - resolved Admission Cr 1.3--> 2.7 ->1.8 Likely from sepsis, hypotension No signs of obstruction on CT abdomen pelvis Carreno catheter in place Cr now down to 1.3 (11/13/2024) Acute metabolic encephalopathy secondary to above Resolved Elevated troponin: Likely secondary to hypoxia and demand ischemia with recent viral illness No acute EKG changes/chest pain, continue to monitor DM2: On Trulicity/glipizide/metformin at home, hold p.o. medications SSI/glycemic pharmacy consult, 4 times daily BGM Atrial fibrillation Was on metoprolol tartrate 50 mg twice daily at home, held for septic shock heart rate in the 150s, resume metoprolol to tartrate at 25 mg p.o. twice daily to prevent hypotension, monitor blood pressure HR elevated -> resumed usual dose of 50 mg twice daily -> changed to XL form Coumadin dose decreased - will need follow up with coumadin clinic INR daily Polymyalgia rheumatica, on chronic prednisone Resumed usual prednisone as IV hydrocortisone taper has completed Patient is a DNR/DNI DVT prophylaxis: Warfarin Admission and Anticipated Discharge Date Admission Date: November 06, 2024 Subjective Follow-up for septic shock secondary to pneumonia and influenza A infection, possible adrenal insufficiency, etc. Pt laying in bed in NAD, says he feels better today. Nausea much improved Denies chest pain, shortness of breath, feeling dizzy or lightheaded Still feels weak, occasional cough repeated cxr, and obtained kub - no concerns Family concerned about taking pt home, PT does not recommend rehab. family prefers to take pt home w/ HH tmrw. discussed w/ veterinarian helper of Systems Review of Systems: All systems reviewed & are unremarkable except as noted in Subjective Physical Exam Physical Exam: General- oriented x 3, not in distress, speaks in sentences with no effort or accessory muscle use Eyes- anicteric Neck- no JVD Lungs- + mild rhonchi, crackles - improved Heart- normal rate, regular rhythm; no murmurs Abdomen- normal bowel sounds, nondistended, soft, nontender Extremities- no pretibial edema, no calf tenderness Neuro- alert, oriented x 3; no gross focal neurologic deficits Skin- warm & dry Results & Data Results & Data Vital Signs (Past 12 Hours) Vital Signs Temp Pulse Pulse Resp BP Pulse Ox O2 Del Method 11/15/24 15:58 83 18 95 Room Air 11/15/24 15:45 36.3 C L 85 18 145/83 H 98 Room Air 11/15/24 15:45 85 11/15/24 11:53 36.4 C L 84 18 145/82 H 94 Room Air 11/15/24 10:14 85 11/15/24 07:55 96 H 18 96 Room Air 11/15/24 07:40 36.3 C L 87 18 158/77 H 95 Room Air Laboratory Results 11/15/24 11/15/24 11/15/24 Range/Units 17:20 12:14 08:13 WBC (4.8-10.8) K/ul RBC (4.70-6.10) M/uL Hgb (14.0-18.0) g/dl Hct (42.0-52.0) % MCV (80.0-100.0) fL MCH (25.0-34.0) pg MCHC (32.0-36.0) g/dL RDW Std Deviation (36.4-46.3) fL RDW Coeff of Roverto (11.5-14.5) % Plt Count (130-400) K/uL MPV (9.4-12.4) fL PT (9.0-12.0) Seconds INR (0.9-1.1) Sodium (136-145) mmol/L Potassium (3.5-5.1) mmol/L Chloride (98-107) mmol/L Carbon Dioxide (21-32) mmol/L Anion Gap (3-11) BUN (6-23) mg/dl Creatinine (0.6-1.4) mg/dl Est Cr Clr Drug Dosing ml/min eGFR BUN/Creatinine Ratio (10-20) Glucose (70-99(Fasting)) mg/dl POC Glucose 168 H 188 H 140 H (70-99) mg/dl Calcium (8.6-10.3) mg/dl Phosphorus (2.5-4.9) mg/dl Magnesium (1.7-2.4) mg/dl 11/15/24 11/14/24 Range/Units 05:37 20:46 WBC 8.41 (4.8-10.8) K/ul RBC 3.74 L (4.70-6.10) M/uL Hgb 10.7 L (14.0-18.0) g/dl Hct 32.2 L (42.0-52.0) % MCV 86.1 (80.0-100.0) fL MCH 28.6 (25.0-34.0) pg MCHC 33.2 (32.0-36.0) g/dL RDW Std Deviation 44.6 (36.4-46.3) fL RDW Coeff of Roverto 14.2 (11.5-14.5) % Plt Count 227 (130-400) K/uL MPV 11.8 (9.4-12.4) fL PT 21.7 H (9.0-12.0) Seconds INR 2.1 H (0.9-1.1) Sodium 137 (136-145) mmol/L Potassium 3.6 (3.5-5.1) mmol/L Chloride 107 (98-107) mmol/L Carbon Dioxide 23 (21-32) mmol/L Anion Gap 7 (3-11) BUN 15 (6-23) mg/dl Creatinine 1.24 (0.6-1.4) mg/dl Est Cr Clr Drug Dosing 52.2 ml/min eGFR 58.78 BUN/Creatinine Ratio 12.1 (10-20) Glucose 148 H (70-99(Fasting)) mg/dl POC Glucose 153 H (70-99) mg/dl Calcium 7.8 L (8.6-10.3) mg/dl Phosphorus 2.2 L (2.5-4.9) mg/dl Magnesium 1.7 (1.7-2.4) mg/dl Medications Administered Current Inpatient Medications Acetaminophen (Acetaminophen 500 Mg Tab) 500 mg PO Q6H PRN PRN Reason: fever/pain Stop: 12/09/24 05:59 Last Admin: 11/15/24 10:38 Dose: 500 mg Albuterol (Albut/Ipratrop 3mg/0.5mg Neb 3 Ml Vial) 3 ml NEB Q6R PRN; Protocol PRN Reason: Shortness Of Breath Or Wheezing Stop: 12/06/24 14:29 Last Admin: 11/14/24 12:50 Dose: 3 ml Budesonide (Budesonide 0.5 Mg/2 Ml Vial (Pulmicort)) 0.5 mg NEB BIDR [facility] Stop: 12/08/24 18:59 Last Admin: 11/15/24 07:54 Dose: 0.5 mg Dextrose (Dextrose 50% 50 Ml Syringe) 25 - 50 ml IV UD PRN; Protocol PRN Reason: Hypoglycemia Protocol Stop: 12/06/24 12:18 Duloxetine HCl (Duloxetine Hcl 20 Mg Cap) 20 mg PO QPM [facility] Stop: 12/06/24 20:59 Last Admin: 11/14/24 21:02 Dose: 20 mg Formoterol Fumarate (Formoterol 20 Mcg/2 Ml Vial) 20 mcg INH BIDR [facility] Stop: 12/08/24 18:59 Last Admin: 11/15/24 07:54 Dose: 20 mcg Glucagon (Glucagon For Inj 1 Mg Vial) 1 mg SQ UD PRN; Protocol PRN Reason: Hypoglycemia Protocol Stop: 12/06/24 12:18 Glucose (Glucose 40% Gel 15 Gm Tube) 15 - 30 gm PO UD PRN; Protocol PRN Reason: Hypoglycemia Protocol Stop: 12/06/24 12:18 Glucose (Glucose 10 Tab/Tube) 4 - 8 tab PO UD PRN; Protocol PRN Reason: Hypoglycemia Protocol Stop: 12/06/24 12:18 Guaifenesin (Guaifenesin 600 Mg Tabcr) 600 mg PO Q12 [facility] Stop: 12/07/24 08:59 Last Admin: 11/15/24 08:30 Dose: 600 mg Heparin Sodium (Beef Lung) (Heparin 10 Unit/Ml 5 Ml Flush) 5 ml FLUSH PRN PRN PRN Reason: Flush Stop: 12/07/24 03:23 Ceftriaxone Sodium (Rocephin) 2,000 mg in 50 mls @ 100 mls/hr IV Q24H [facility] Stop: 11/16/24 13:59 Last Infusion: 11/15/24 13:57 Dose: Infused Metronidazole (Flagyl) 500 mg in 100 mls @ 100 mls/hr IV Q8H [facility]; Protocol Stop: 11/16/24 13:59 Last Infusion: 11/15/24 14:21 Dose: Infused Insulin Aspart (Insulin Aspart Per Unit Charge) 0 units SC ACHS [facility] Stop: 12/12/24 07:29 Last Admin: 11/15/24 13:12 Dose: 4 units Insulin Glargine (Lantus Per Unit Charge) [facility] [place] Protocol Stop: 12/10/24 08:59 Last Admin: 11/15/24 09:25 Dose: 5 units Ipratropium [place] (Ipratropium [place] Neb Soln 0.02% 0.5mg/2.5ml Vial) 0.5 mg NEB Q6R [facility] Stop: 12/07/24 18:59 Last Admin: 11/15/24 15:55 Dose: 0.5 mg Lactobacillus Acidophilus (Advanced Probiotic 625 Mg Capsule) 1,250 mg PO DAILY [facility] Stop: 12/08/24 08:59 Last Admin: 11/15/24 08:33 Dose: Not Given Levalbuterol HCl (Levalbuterol 1.25 Mg/3 Ml Neb) 1.25 mg NEB Q6R [facility] Stop: 12/07/24 18:59 Last Admin: 11/15/24 15:55 Dose: 1.25 mg Metoprolol Succinate (Metoprolol Succ 50mg Ext Rel Tab) 50 mg PO BID [facility] Stop: 12/14/24 20:59 Last Admin: 11/15/24 08:32 Dose: 50 mg Miscellaneous (Carbohydrates For Hypoglycemia ) 15 - 30 gm PO UD PRN PRN Reason: Hypoglycemia Protocol Stop: 12/06/24 12:18 Miscellaneous Information (Pharmacy Glycemic Mgmt Consult) 1 each N/A UD PRN PRN Reason: Consult Stop: 12/06/24 12:18 Ondansetron HCl (Ondansetron Inj 2 Mg/Ml 2 Ml Vial) 4 mg IV Q6H PRN PRN Reason: Nausea And Vomiting Stop: 12/06/24 16:43 Last Admin: 11/13/24 07:43 Dose: 4 mg Pantoprazole Sodium (Pantoprazole 40 Mg Tab) 40 mg PO QAM [facility] Stop: 12/07/24 08:59 Last Admin: 11/15/24 08:30 Dose: 40 mg Prednisone (Prednisone 5 Mg Tab) 5 mg PO BID [facility] Stop: 12/06/24 20:59 Last Admin: 11/15/24 08:34 Dose: 5 mg Sodium Chloride (Sodium Chlor 7% 4 Ml Neb) 4 ml NEB BIDR [facility] Stop: 12/12/24 18:59 Last Admin: 11/15/24 07:54 Dose: 4 ml Vitamin D (Cholecalciferol 25 Mcg (1000 Units) Tab) 50 mcg PO QAM [facility] Stop: 12/07/24 08:59 Last Admin: 11/15/24 08:30 Dose: 50 mcg Warfarin Sodium (Warfarin Sod 2.5 Mg Tab) 2.5 mg PO MOWEFR@16 [facility] Stop: 12/11/24 15:59 Warfarin Sodium (Warfarin Sod 5 Mg Tab) 5 mg PO SuTuThSa@1600 [facility] Stop: 12/10/24 15:59 Last Admin: 11/10/24 16:12 Dose: 5 mg Warfarin Sodium (Warfarin Sod 2.5 Mg Tab) 2.5 mg PO DAILY@1600 [facility] Stop: 12/14/24 15:59 Last Admin: 11/15/24 17:08 Dose: 2.5 mg
[2024-11-16 01:16] VITALS: RESP 18
[2024-11-16 03:58] VITALS: TEMP 97.3
[2024-11-16 06:48] LABS: INR 2.8 (0.9-1.1); Prothrombin Time 27.4 Seconds (9.0-12.0)
[2024-11-16 11:22] VITALS: BP 144/80; O2SAT 95
[2024-11-16 11:24] LABS: Basophils # (auto) 0.01 K/uL (0.00-0.20); Basophils % (auto) 0.1 %; Eosinophils # (auto) 0.13 K/uL (0.00-0.50); Eosinophils % (auto) 1.1 %; Hematocrit (blood only) 35.2 % (42.0-52.0); Hemoglobin 11.2 g/dl (14.0-18.0); Immature Granulocytes % (auto) 0.9 %; Lymphocytes # (auto) 1.28 K/uL (1.20-3.40); Lymphocytes % (auto) 11.3 %; Mean Corpuscular Hemoglobin 27.9 pg (25.0-34.0); Mean Corpuscular Hgb Conc 31.8 g/dL (32.0-36.0); Mean Corpuscular Volume 87.8 fL (80.0-100.0); Mean Platelet Volume 12.1 fL (9.4-12.4); Monocytes % (auto) 8.8 %; Neutrophils # (auto) 8.84 K/uL (1.40-6.50); Neutrophils % (auto) 77.8 %; Platelet Count 269 K/uL (130-400); RDW Coefficient of Variation 14.6 % (11.5-14.5); RDW Standard Deviation 47.3 fL (36.4-46.3); Red Blood Count 4.01 M/uL (4.70-6.10); White Blood Count 11.36 K/ul (4.8-10.8)
[2024-11-16 11:45] LABS: Albumin Level 3.1 gm/dl (3.4-5.0); BUN Creatinine Ratio 10.3 (10-20); Bilirubin,Total 0.4 mg/dl (0.2-1.0); Calcium 8.2 mg/dl (8.6-10.3); Creatinine Clr Calc Pharmacy 55.7 ml/min; Globulin 3.2 gm/dl (2.5-4.0); Potassium 3.8 mmol/L (3.5-5.1); Total Protein 6.3 gm/dl (6.0-8.3)
--- NOTE | 2024-11-16 12:05 | Discharge Summary ---
Discharge Summary Date of Service November 16, 2024 Principal Dx & Hospital Course #1 = Principal Diagnosis (1) Vomiting: (2) AMS (altered mental status): (3) Pulmonary edema: (4) Chronic steroid use: (5) Polymyalgia rheumatica: (6) HTN, goal below 140/90: (7) Diabetes mellitus, type 2: (8) Hyperlipidemia: (9) Hypertension: (10) Permanent atrial fibrillation: Plan The patient is an 78-year-old male with a past medical history of A-fib on Coumadin, depression, HLD, DM2, PMR who presents to the ED on 11/06/2024 with complaints of flulike symptoms, found to be positive for flu A, suspicion for aspiration pneumonia and acute hypoxic respiratory failure. Acute hypoxic respiratory failure COPD exacerbation Severe Sepsis with septic shock Influenza A Pneumonia, possible aspiration On admission, found to be 77% on room air by EMS, patient's reports vomiting suspicious for aspiration Hypotensive, febrile with leukocytosis and with elevated lactic acid Originally requiring 13 L O2 and eventually in the ICU requiring pressor support Respiratory viral panel positive for influenza Chest XRAY unremarkable CT chest showing early pneumonia sputum culture grew pansensitive E coli Procalcitonin elevated Blood cultures with NGTD Treated with IV Vanco/Zosyn for pneumonia Was on tamiflu IV steroids Speech was consulted, no dysphagia Pulmonology was consulted Discharged with 2 more days of cefdinir and flagyl and probiotic PCP followup after discharge Abdominal pain Intractable N/V Pt with episodes and intractable N/V CT abd/pelvis unremarkable KUB w/o evidence of obstruction Likely in setting of flu infection Pt with recurrence of leukocytosis on day of discharge, otherwise stable and well appearing, no infectious signs Discharged as above on probiotic with 2 more days of cefdinir and flagyl Acute kidney injury on CKD IV - resolved Admission Cr 1.3--> 2.7 ->1.8 Likely from sepsis, hypotension No signs of obstruction on CT abdomen pelvis Resolved on discharge Acute metabolic encephalopathy secondary to above Head CT unremarkable Resolved Elevated troponin: Likely secondary to hypoxia and demand ischemia with recent viral illness No acute EKG changes/chest pain Doubt ACS DM2: On Trulicity/glipizide/metformin at home SSI/glycemic pharmacy consult, 4 times daily BGM Resume home meds on discharge Atrial fibrillation Was on metoprolol tartrate 50 mg twice daily at home, held for septic shock On coumadin, INR therpeutic on discharge will need follow up with Coumadin clinic after discharge Polymyalgia rheumatica, on chronic prednisone Continue home prednisone Notes For Next Care Provider Medication Changes From Visit cefdinir and flagyl x 2 more days with probiotic Admission HPI Per Admitting Provider The patient is an 78-year-old male with a past medical history of AF, HLD, un controlled DM2, HTN who presented to the ED on 11/06/2024 with complaints of flulike symptoms over the past 2 days. The patient's reported that he vomited in the bed overnight and she found him barely responsive. EMS was called and his oxygen level was 80% on room air with concerns for aspiration. Patient was placed on 13 L OxyMask and deep suctioned on arrival to the ED and oxygen level improved. is at the bedside, reports not feeling well over the past few days, reported feeling cold last night. He then began vomiting last night. Reports trouble breathing that is worsening. Denies coughing but reports sore throat. Denies any chest pain or belly pain. Patient is a poor historian but is able to answer questions appropriately. Reports fevers at home. Does not wear any oxygen at home. EKG shows rapid A-fib in the 120s. SBPs originally in the 70s on arrival, now improved to 90s after fluid resuscitation. Labs are remarkable for WBC 11.5, hemoglobin 13.5, INR 1.9, anion gap 14, glucose 298, lactic 4.6, magnesium 1.4, procalcitonin 0.84 Patient is positive for flu A Chest x-ray without acute changes Head CT negative, abdominal/pelvis CT negative for any acute findings Chest CT shows early pneumonia, most advanced at right lung base Admission Exam Per Admitting Provider Constitutional: WD/WN, vitals as above + ill appearing Eyes: PERRL, conjunctivae normal, anicteric sclerae ENMT: external ear and nose normal, oropharynx normal Neck: trachea midline, no thyromegaly Respiratory: normal respiratory effort, lungs clear to auscultation (coarse breath sounds b/l) Auscultation: + lungs not clear to auscultation Cardiovascular: RRR, no murmur, no edema (tachycardic, no edema ) Gastrointestinal (Abdomen): normal bowel sounds, soft, nontender, no hepatosplenomegaly Musculoskeletal: no cyanosis or clubbing, extremities motor strength 5/5 Skin: no rashes, warm and dry Neurologic: PERRL, EOMI, accommodation nl, no face palsy, no dysarthria Lymphatic: no cervical or axillary lymphadenopathy Discharge Exam General: Alert, oriented. No acute distress Psych: Appropriate mood and affect HEENT: NC/AT CV: RRR Resp: Breath sounds clear bilaterally, no increased effort of breathing Abdomen: Soft, nontender Extremities: No edema in lower extremities bilaterally. Updated Medication List Medication Instructions Recorded Confirmed Type alendronate 70 mg tablet (Fosamax) 70 mg PO WK 12/25/21 11/06/24 History atorvastatin 20 mg tablet (Lipitor) 20 mg PO PM 12/25/21 11/06/24 History cholecalciferol (vitamin D3) 50 50 mcg PO QAM 12/25/21 11/06/24 History mcg (2,000 unit) tablet (Vitamin D3) duloxetine 20 mg capsule,delayed 20 mg PO QPM 12/25/21 11/06/24 History release glipizide 10 mg tablet See Rx Instructions .Route .COMPLEX 12/25/21 11/06/24 History metformin 1,000 mg tablet 1,000 mg PO BID 12/25/21 11/06/24 History prednisone 5 mg tablet 5 mg PO BID 12/25/21 11/06/24 History warfarin 5 mg tablet 5 mg PO SUTUTHSA@16 12/25/21 11/07/24 History acetaminophen 500 mg tablet 500 - 1,000 mg PO Q6H PRN Pain 12/30/22 11/06/24 History (Tylenol Extra Strength) enalapril maleate 10 mg tablet 10 mg PO QAM #30 tabs 01/03/23 11/06/24 Rx metoprolol tartrate 50 mg tablet 50 mg PO BID #60 tabs 01/03/23 11/06/24 Rx dulaglutide 4.5 mg/0.5 mL 4.5 mg subcut WK 11/06/24 11/06/24 History subcutaneous pen injector (Trulicity) warfarin 5 mg tablet 2.5 mg PO MOWEFR@16 11/07/24 11/07/24 History L.acidop,casei,lactis,rham-B.lact,xenia 1 cap PO DAILY #30 caps 11/16/24 Rx 625 mg (10 billion cell) capsule (Advanced Probiotic) cefdinir 300 mg capsule 300 mg PO BID #4 caps 11/16/24 Rx metronidazole 500 mg tablet 500 mg PO BID #4 tabs 11/16/24 Rx Hospital Stay Data Consultations 11/06/24 12:42 ED Decision to Admit Stat 11/06/24 16:46 Consult Pulmonology Routine 11/06/24 17:34 Consult Improvement Nurse Routine Diagnostic Imagining Performed 11/06/24 09:28 CT Abd and Pelvis [CT abd pelvis wo con] Stat CT chest diagnostic wo con Stat CT head/brain wo con Stat Chest X-Ray 11/06/24 08:49 XR chest 1V portable CLINICAL HISTORY: Sepsis COMPARISON STUDY: 12/30/2022 FINDINGS: Stable mild cardiomegaly without pulmonary vascular congestion. No effusion, consolidation, or pneumothorax. IMPRESSION: No acute findings. ACT 112: Negative or not required by law. Electronically signed by: Romario Henning M.D. 11/06/2024 9:19 AM Abdomen/Pelvis CT 11/06/24 09:[address] WITHOUT CONTRAST CT DOSE: 3859.8 mGy.cm HISTORY: fever, ams, vomiting TECHNIQUE: Multiaxial CT images of the abdomen and pelvis were performed without contrast. A dose lowering technique was utilized adhering to the principles of ALARA. COMPARISON STUDY: 12/30/2022 FINDINGS: ABDOMEN: Liver, gallbladder, spleen, pancreas, and adrenal glands have an unremarkable non-IV contrast appearance. Kidneys show no hydronephrosis or calculi. There are scattered atherosclerotic calcifications. No abdominal aortic aneurysm. Pelvis: Carreno catheter is present and the urinary bladder is empty. Prostate is minimally enlarged. There is moderate retained stool. No bowel inflammation or obstruction. Normal appendix. No free fluid, free air, or abscess. No enlarged adenopathy. Osseous structures: There is moderate lumbar degenerative disc disease. IMPRESSION: No acute findings. ACT 112: Negative or not required by law. The above report was generated using voice recognition software. It may contain grammatical, syntax or spelling errors. Electronically signed by: Romario Henning M.D. 11/06/2024 12:[address] 11/06/24 09:28 CT chest diagnostic wo con CT DOSE: 3859 CLINICAL HISTORY: fever, sob. TECHNIQUE: Multiaxial CT images of the chest were performed without contrast. A dose lowering technique was utilized adhering to the principles of ALARA. COMPARISON STUDY: 03/17/2018 FINDINGS: There is mild motion artifact due to difficulty breath holding. There is bronchial wall thickening consistent with bronchitis. There are scattered patchy groundglass pulmonary opacities most prominent at the right lower lung. There is a small area of patchy consolidation posterior right lung base. Findings are consistent with early pneumonia. There is no pleural effusion or pneumothorax. There is minimal mediastinal adenopathy, likely reactive. No pericardial effusion. There are coronary artery and aortic calcifications. There are mild thoracic spine degenerative changes. IMPRESSION: Early pneumonia most advanced at the right lung base. Follow-up chest CT suggested in 3 months to make sure that this completely resolves without underlying nodule. ACT 112: Positive. There are findings on this exam that require communication between the performing entity and the patient following Patient Test Result Information Act ([place] Act 112) guidelines. Electronically signed by: Romario Henning M.D. 11/06/2024 12:[address] 11/06/24 09:28 CT head/brain wo con CLINICAL HISTORY: ams. TECHNIQUE: Multiple axial CT images of the head were obtained without contrast. A dose lowering technique was utilized adhering to the principles of ALARA. COMPARISON: 03/17/2018 FINDINGS: There is mild motion artifact. No intracranial hemorrhage seen. No mass effect, midline shift, or hydrocephalus. Stable mild chronic small vessel ischemic changes. No skull fracture seen. Stable mucous retention cyst in the left maxillary sinus. Otherwise the visualized paranasal sinuses and mastoid air cells are clear. IMPRESSION: No acute findings. ACT 112: Negative or not required by law. The above report was generated using voice recognition software. It may contain grammatical, syntax or spelling errors. Electronically signed by: Romario Henning M.D. 11/06/2024 11:44 AM Chest X-Ray 11/06/24 16:27 INDICATION: Difficulty breathing. TECHNIQUE: Frontal radiograph of the chest. COMPARISON: Radiograph from 12/30/2022. FINDINGS: Cardiomegaly. Mild pulmonary vascular congestion. Bilateral lower lobe infiltrates. Small left pleural effusion. No pneumothorax. No acute fracture. IMPRESSION: 1. Mild pulmonary vascular congestion. 2. Bilateral lower lobe infiltrates concerning for pneumonia. 3. Small left pleural effusion. Electronically signed by Bernardo Sutton 11-06-2024 5:10 PM Chest X-Ray 11/09/24 07:00 EXAM: XR chest 1V portable CLINICAL HISTORY: Followup [facility] TECHNIQUE: X-ray image of the chest obtained in frontal projection. COMPARISON: Prior X-ray dated 11/06/2024 for comparison. FINDINGS: Pulmonary Parenchyma: Mild interval resolution of air space opacities in bilateral lower lung zones. Prominent bilateral parahilar markings. Mild blunting of bilateral CP angles likely pleural thickening/effusion. Heart and Mediastinum: Cardiomegaly. No mediastinal widening or masses. No hilar or mediastinal lymphadenopathy. Bony Thorax: Spondylotic changes in thoracic spine. Bony thorax appears intact without fractures or deformities. Soft Tissues: Soft tissues overlying the chest wall are unremarkable. IMPRESSION: 1. Cardiomegaly. 2. Mild interval resolution of air space opacities in bilateral lower lung zones. 3. Prominent bilateral parahilar markings. 4. Mild blunting of bilateral CP angles likely pleural thickening/effusion. Electronically signed by Mae Nixon 11-09-2024 08:23 AM Chest X-Ray 11/13/24 13:01 Chest radiograph, one view History: Nausea Comparison: 11/06/2024, 11/09/2024 Findings: Single AP view of the chest performed. A small left pleural effusion remains. The lower lung perihilar opacities appear resolved. No pneumothorax. The cardiomediastinal silhouette is within normal limits. Normal pulmonary vascularity. No evidence for lymphadenopathy. No visualized bony or soft tissue abnormality. Impression: Persistent small left pleural effusion, otherwise with resolved perihilar pulmonary opacities Electronically signed by Brenden Andrade 11-13-2024 2:04 PM KUB X-Ray 11/13/24 13:02 Abdominal radiograph, one view History: Abdominal pain Comparison: None Findings: Single AP view of the abdomen performed. The bowel gas pattern appears nonobstructive. There is minimal gas seen throughout the large bowel. No pneumatosis or portal venous gas. No abnormal calcifications project over the abdomen. No acute abnormality of the bony structures. Impression: Nonobstructive bowel gas pattern Electronically signed by Brenden Andrade 11-13-2024 2:04 PM Pending Results Patient Have Any Pending Studies at Discharge: No Discharge Instructions Given to Patient (Per Discharging Provider) Mr. Mcpherson, You are being discharged home. You received an extensive course of antibiotics in the hospital. We are discharging you home with an additional 2 days of antibiotics and a probitoic to be taken daily. Please take the medications as prescribed. Please keep close follow up with your primary care provider after discharge. Please do not hesitate to come back to the emergency room if your symptoms worsen or return. It was a pleasure taking care of you while you were here. Total Time Total Time Spent Total Time Spent (In Minutes): 48
[2024-11-16 13:20] VITALS: PULSE 85
== END 2024-11-16 14:24 | disposition home health service (06) | DRG 871 ==
LOC: ED 08:35 → 2S 12:10 → SUATTDRO 12:10 → 2S 13:25 → 1E 17:55 → 4W 11-07 18:07

== ENCOUNTER 2025-02-10 07:50 | Inpatient (IN) ==
[2025-02-10 08:37] LABS: Appearance Urine Clear (Clear); Bacteria Urine Automated None Seen (None Seen); Basophils # (auto) 0.06 K/uL (0.00-0.20); Basophils % (auto) 0.3 %; Bilirubin Urine Negative (Negative); Blood Urine Negative (Negative); Cast Urine Automated 0-2 /lpf (0-2); Color Urine Yellow; Eosinophils # (auto) 0.16 K/uL (0.00-0.50); Eosinophils % (auto) 0.9 %; Epithelial Cell Urine Auto 0-2 /hpf (0-2); Glucose Urine UA 1+ (Negative); Hematocrit (blood only) 37.5 % (42.0-52.0); Hemoglobin 12.4 g/dl (14.0-18.0); Immature Granulocytes # (auto) 0.19 K/uL (0.01-0.20); Ketones Urine Negative (Negative); Leukocyte Esterase Urine Negative (Negative); Lymphocytes # (auto) 1.72 K/uL (1.20-3.40); Lymphocytes % (auto) 9.2 %; Mean Corpuscular Hemoglobin 29.7 pg (25.0-34.0); Mean Corpuscular Hgb Conc 33.1 g/dL (32.0-36.0); Mean Corpuscular Volume 89.7 fL (80.0-100.0); Mean Platelet Volume 11.6 fL (9.4-12.4); Monocytes # (auto) 1.14 K/uL (0.11-0.59); Monocytes % (auto) 6.1 %; Neutrophils # (auto) 15.46 K/uL (1.40-6.50); Neutrophils % (auto) 82.5 %; Nitrite Urine Negative (Negative); Platelet Count 314 K/uL (130-400); Protein Urine 1+ (Negative); RBC Urine Automated 0-2 /hpf (0-2); RDW Coefficient of Variation 14.1 % (11.5-14.5); RDW Standard Deviation 46.2 fL (36.4-46.3); Red Blood Count 4.18 M/uL (4.70-6.10); Specific Gravity Urine 1.015 (1.000-1.030); Urobilinogen Urine Negative (Negative); WBC Urine Automated 0-5 /hpf (0-5); White Blood Count 18.73 K/ul (4.8-10.8)
--- NOTE | 2025-02-10 08:52 | XRay Report ---
XR chest 1V portable CLINICAL HISTORY: weakness COMPARISON STUDY: Chest CT November 06, 2024. Chest radiograph November 13, 2024. FINDINGS: There is no pneumothorax or pleural effusion. Lung volumes are normal. Interstitial thicken ing and patchy bilateral airspace opacities are present. Findings have progressed when compared to pr ior exam. Mild cardiomegaly is unchanged. Mediastinal contours are stable. IMPRESSION: Interstitial thickening and patchy bilateral airspace opacities. The findings may repres ent pulmonary edema or pneumonia. ACT 112: Negative or not required by law. Electronically signed by: Alberto Marrero M.D. 02/10/2025 8:51 AM
[2025-02-10 08:57] LABS: Albumin Globulin Ratio 0.9 (0.9-2); Albumin Level 3.4 gm/dl (3.4-5.0); BUN Creatinine Ratio 22.4 (10-20); Bilirubin,Total 0.5 mg/dl (0.2-1.0); Calcium 8.9 mg/dl (8.6-10.3); Creatinine Clr Calc Pharmacy 51.6 ml/min; Globulin 3.7 gm/dl (2.5-4.0); Magnesium 1.7 mg/dl (1.7-2.4); Total Protein 7.1 gm/dl (6.0-8.3)
[2025-02-10] MEDS: ALBUT/IPRATROP 3MG/0.5MG NEB 3 ML VIAL NEB STA (09:01)
[2025-02-10 09:03] LABS: Troponin I High Sensitivity 18.3 pg/ml (0-20)
[2025-02-10 09:13] LABS: Thyroid Stimulating Hormone 1.108 uIu/ml (0.300-4.500)
--- NOTE | 2025-02-10 09:15 | Emergency Department Note ---
Impression & Plan Pneumonia, Leukocytosis, Chills ED Provider Note NAME: AROLDO SILVERMAN AGE: 79 SEX: Male INFORMANT: Patient and family ED PROVIDER(S): Wilbur Barrios MD CHIEF COMPLAINT: Chills and vomiting PLAN: Disposition: Admitted Outpatient prescription management: none Referral: None MEDICAL DECISION MAKING: Patient present because of chills and vomiting. He was requiring supplemental oxygen. Chest x-ray was concerning for pneumonia. Patient denied having any issues of choking or possible aspiration. He did have a sick contact. BioFire testing was performed and was negative. Cultures were added as the patient had an 18,000 white count. He was treated with IV Rocephin and doxycycline. Cardiac troponin negative. BNP borderline. Patient has no peripheral signs of CHF. Urinalysis was negative. On reassessment patient was feeling better. Oxygen requirement was still present but diminished. ECG did show an A-fib but no ischemia. Patient will need further evaluation and management in the hospital. Consultation was made with the [facility] hospitalist service. Case discussed and diagnostics were reviewed. Patient was admitted for further management. Care/management discussed with: brokerage office manager, hospitalist Level of care consideration(s): After review of the information above and other included data, I feel the patient requires escalation of care to admission Triage Nursing notes: reviewed and agree them. Vital Signs: reviewed and remarkable for mild hypoxia Additional History obtained from: Family Chronic Medical/Social Conditions affecting care: none Prior/ Outside/ External records reviewed: none Differential Diagnosis: Reactive airway disease, pneumonia, pneumothorax, COPD, CHF, infections, cardiac ischemia, pulmonary embolism, musculoskeletal, gastrointestinal, as well as other pathologies. Diagnostics, independently interpreted by me: ECG: Twelve-lead ECG reveals A-fib with RVR at [address] elevation or depression. Cardiac Monitoring: Cardiac monitoring ordered by me: The patient was placed on continuous cardiac monitoring and observed. It revealed a atrial fibrillation at 100 bpm. Medical decision rules: none Imaging studies: Chest x-ray reveals bilateral infiltrative process. HPI: 79 year old Male arrives for evaluation of chills and vomiting. Patient notes that he was feeling in normal state of health yesterday. Denies any travel or eating thing unusual. He woke up this morning at 6:00 this morning he felt severe chills. Could not get warm. He then developed nausea. He felt short of breath. He denied any chest discomfort but noted that he started vomiting. Does not feel that he aspirated or choked. Patient was found to be hypoxic upon arrival with a O2 saturation of 83%. He responded well to 4 L of nasal cannula oxygen. Family is present and helps with the history. They do note that their oldest son had a cold about 2 days ago. Pt denies LOC, headache, diaphoresis, visual changes, neck pain, chest pain, abdominal pain, back pain, melena, hematochezia, urinary symptoms, numbness, focal weakness, lymphadenopathy, rash, or other complaints. PAST MEDICAL HISTORY: See Below, aspiration, A-fib with RVR, anticoagulated PAST SURGICAL HISTORY: See Below, SOCIAL HISTORY: See Below, retired HOME MEDICATIONS: See Below ALLERGIES: See Below VITALS: See Below PHYSICAL EXAMINATION: GENERAL: Awake, alert, ill-appearing, in no distress HENT: Normocephalic, atraumatic. Oropharynx unremarkable. EYES: Normal conjunctiva. Sclera non-icteric. PERRL NECK: Inspection normal. Non-tender. Supple. No nuchal rigidity. FROM. No masses. RESPIRATORY: Coarse breath sounds bilaterally. No wheezes. No rales. Normal respiratory effort. CARDIAC: Normal rate. Normal rhythm. No murmurs. No rubs. Extremities warm and well perfused. Pulses equal. No JVD. GI: Soft, non-distended. No tenderness to palpation. No rebound or guarding. No masses. RECTAL: Deferred. MUSCULOSKELETAL: Atraumatic. Chest examination reveals no tenderness. The back is symmetrical on inspection without obvious abnormality. There is no CVA tenderness to palpation. No joint edema. LOWER EXTREMITIES: Calves are equal size bilaterally and non-tender. No edema. No discoloration. NEURO: Normal sensorium. No sensory or motor deficits noted. SKIN: No rash or jaundice noted. PROCEDURES: none CRITICAL CARE: none OBSERVATION NOTE: none Past Med/Surg History Problem List (Updated 02/10/25 @ 11:42 by Wyatt Molina MD) Acute on chronic diastolic (congestive) heart failure Chills (Acute) Leukocytosis (Acute) Pneumonia (Acute) Demand ischemia Lactic acidosis Acute metabolic encephalopathy Aspiration pneumonitis Shock Aspiration into airway (Acute) Vomiting (Acute) AMS (altered mental status) (Acute) Sepsis (Acute) Acute respiratory failure with hypoxia (Acute) Human metapneumovirus (hMPV) pneumonia (Acute) Pulmonary edema (Acute) Atrial fibrillation with rapid ventricular response (Acute) Scrotal swelling Tight foreskin HTN, goal below 140/90 Steroid-induced osteoporosis Permanent atrial fibrillation ARF (acute renal failure) (Acute) Acute kidney injury (Acute) Dehydration (Acute) Dehydration (Acute) Gastroenteritis (Acute) Nausea (Acute) Weakness (Acute) Encounter for pre-operative examination Medical History Atrial fibrillation follows with Dr Sebastian, no cardioversion. managed with medications. Chronic steroid use Diabetes mellitus, type 2 NIDDM Hyperlipidemia Hypertension On anticoagulant therapy Osteoarthritis Polymyalgia rheumatica takes prednisone BID to manage. Surgical History H/O eye surgery bilateral tear duct procedures to place a "drain" History of arthroscopy of left shoulder History of cataract surgery History of colonoscopy S/P left knee arthroscopy Family History Other No family history of adverse response to anesthesia Social History (System 02/10/25 @ 08:31 by Annie Cortez) Smoking Status: Former smoker Tobacco Type: Cigarettes Second Hand Exposure: No; Do You Dip or Chew Tobacco: No; Hx Alcohol Use: No Hx Substance Use: No Preferred Language: Maldivian Communication Ability: Effective Diffuser Operator Required: No Beliefs That Will Affect Care: None marital status: Current Living Situation: Spouse Feels Safe at Home: Yes Assistive Devices: None Allergies Allergies Allergy/AdvReac Type Severity Reaction Status Date / Time oxycodone Allergy Intermediate WHEEZING Verified 02/10/25 11:11 Home Meds Home Medications Medication Instructions Recorded Confirmed alendronate 70 mg tablet (Fosamax) 70 mg PO WK 12/25/21 02/10/25 atorvastatin 20 mg tablet (Lipitor) 20 mg PO PM 12/25/21 02/10/25 cholecalciferol (vitamin D3) 50 50 mcg PO QAM 12/25/21 02/10/25 mcg (2,000 unit) tablet (Vitamin D3) duloxetine 20 mg capsule,delayed 20 mg PO QPM 12/25/21 02/10/25 release glipizide 10 mg tablet See Rx Instructions .Route .COMPLEX 12/25/21 02/10/25 metformin 1,000 mg tablet 1,000 mg PO BID 12/25/21 02/10/25 prednisone 5 mg tablet 5 mg PO BID 12/25/21 02/10/25 warfarin 5 mg tablet See Rx Instructions .Route .COMPLEX 12/25/21 02/10/25 acetaminophen 500 mg tablet 500 - 1,000 mg PO Q6H PRN Pain 12/30/22 02/10/25 (Tylenol Extra Strength) dulaglutide 4.5 mg/0.5 mL 4.5 mg subcut WK 11/06/24 02/10/25 subcutaneous pen injector (Trulicity) Previous Rx's Medication Instructions Recorded enalapril maleate 10 mg tablet 10 mg PO QAM #30 tabs 01/03/23 metoprolol tartrate 50 mg tablet 50 mg PO BID #60 tabs 01/03/23 L.acidop,casei,lactis,rham-B.lact,xenia 1 cap PO DAILY #30 caps 11/16/24 625 mg (10 billion cell) capsule (Advanced Probiotic) metronidazole 500 mg tablet 500 mg PO BID #4 tabs 11/16/24 Results & Data (ED) Vital Signs Vital Signs - 24 hr 02/10/25 07:33 02/10/25 08:21 02/10/25 08:23 Temperature 37 C Temperature Source Oral Pulse Rate 109 H 109 H Pulse Rate [Apical] Pulse Rate from SpO2 Sensor Pulse Rhythm Pulse Rhythm [Apical] Pulse Strength [Apical] Respiratory Rate 20 Respiratory Effort / Characteristics Non-Labored Spontaneous Respiratory Depth Normal Respiratory Pattern Regular Blood Pressure 160/79 H Blood Pressure [Right Arm] Blood Pressure Mean 106 Blood Pressure Mean [Right Arm] Blood Pressure Position [Right Arm] Pulse Oximetry 83 L 93 Oxygen Delivery Method Room Air Nasal Cannula Oxygen Flow Rate 4 Sepsis Recent Fever Within 48 Hours No Sepsis New/Unexplained Change in Mental Status N/A Sepsis Action Taken by Nursing No Action Required 02/10/25 08:23 02/10/25 10:02 02/10/25 12:20 Temperature Temperature Source Pulse Rate 106 H Pulse Rate [Apical] 105 H 105 H Pulse Rate from SpO2 Sensor Pulse Rhythm Regular Pulse Rhythm [Apical] Irregular Pulse Strength [Apical] Normal Respiratory Rate 26 H 26 H 20 Respiratory Effort / Characteristics Non-Labored Spontaneous Non-Labored Respiratory Depth Normal Normal Respiratory Pattern Regular Blood Pressure Blood Pressure [Right Arm] 124/72 115/64 Blood Pressure Mean Blood Pressure Mean [Right Arm] 89 81 Blood Pressure Position [Right Arm] Lying Pulse Oximetry 94 94 93 Oxygen Delivery Method Nasal Cannula Nasal Cannula Nasal Cannula Oxygen Flow Rate 4 2 2 Sepsis Recent Fever Within 48 Hours Sepsis New/Unexplained Change in Mental Status Sepsis Action Taken by Nursing 02/10/25 12:22 02/10/25 12:28 02/10/25 12:33 Temperature Temperature Source Pulse Rate 96 H 109 H Pulse Rate [Apical] Pulse Rate from SpO2 Sensor 104 H Pulse Rhythm Pulse Rhythm [Apical] Pulse Strength [Apical] Respiratory Rate 29 H Respiratory Effort / Characteristics Respiratory Depth Respiratory Pattern Blood Pressure 115/64 Blood Pressure [Right Arm] Blood Pressure Mean 79 Blood Pressure Mean [Right Arm] Blood Pressure Position [Right Arm] Pulse Oximetry 95 Oxygen Delivery Method Nasal Cannula Oxygen Flow Rate 3 Sepsis Recent Fever Within 48 Hours Sepsis New/Unexplained Change in Mental Status Sepsis Action Taken by Nursing 02/10/25 13:00 02/10/25 13:00 02/10/25 15:34 Temperature 36.4 C L 36.7 C Temperature Source Oral Oral Pulse Rate 94 H Pulse Rate [Apical] 96 H Pulse Rate from SpO2 Sensor 96 H Pulse Rhythm Pulse Rhythm [Apical] Regular Pulse Strength [Apical] Normal Respiratory Rate 29 H 30 H Respiratory Effort / Characteristics Non-Labored Respiratory Depth Normal Respiratory Pattern Regular Blood Pressure 114/79 Blood Pressure [Right Arm] 105/76 Blood Pressure Mean 90 Blood Pressure Mean [Right Arm] 85 Blood Pressure Position [Right Arm] Lying Pulse Oximetry 96 95 Oxygen Delivery Method Nasal Cannula Nasal Cannula Oxygen Flow Rate 3 4 Sepsis Recent Fever Within 48 Hours Sepsis New/Unexplained Change in Mental Status Sepsis Action Taken by Nursing Laboratory Data 02/10/25 08:05 02/10/25 08:05 Lab Results 02/10/25 02/10/25 02/10/25 Range/Units 08:05 08:14 08:30 WBC 18.73 H (4.8-10.8) K/ul RBC 4.18 L (4.70-6.10) M/uL Hgb 12.4 L (14.0-18.0) g/dl Hct 37.5 L (42.0-52.0) % MCV 89.7 (80.0-100.0) fL MCH 29.7 (25.0-34.0) pg MCHC 33.1 (32.0-36.0) g/dL RDW Std Deviation 46.2 (36.4-46.3) fL RDW Coeff of Roverto 14.1 (11.5-14.5) % Plt Count 314 (130-400) K/uL MPV 11.6 (9.4-12.4) fL Immature Gran % (Auto) 1.0 % Neut % (Auto) 82.5 % Lymph % (Auto) 9.2 % Stone % (Auto) 6.1 % Eos % (Auto) 0.9 % Baso % (Auto) 0.3 % Neut # (Auto) 15.46 H (1.40-6.50) K/uL Lymph # (Auto) 1.72 (1.20-3.40) K/uL Stone # (Auto) 1.14 H (0.11-0.59) K/uL Eos # (Auto) 0.16 (0.00-0.50) K/uL Baso # (Auto) 0.06 (0.00-0.20) K/uL Immature Gran # (Auto) 0.19 (0.01-0.20) K/uL PT (9.0-12.0) Seconds INR (0.9-1.1) APTT (21-31) Seconds PTT Ratio Sodium 137 (136-145) mmol/L Potassium 4.0 (3.5-5.1) mmol/L Chloride 102 (98-107) mmol/L Carbon Dioxide 28 (21-32) mmol/L Anion Gap 7 (3-11) BUN 26 H (6-23) mg/dl Creatinine 1.16 (0.6-1.4) mg/dl Est Cr Clr Drug Dosing 51.6 ml/min eGFR 63.28 BUN/Creatinine Ratio 22.4 H (10-20) Glucose 272 H (70-99(Fasting)) mg/dl POC Glucose 242 H (70-99) mg/dl Calcium 8.9 (8.6-10.3) mg/dl Magnesium 1.7 (1.7-2.4) mg/dl Total Bilirubin 0.5 (0.2-1.0) mg/dl AST 15 (13-39) U/L ALT 24 (7-52) U/L Alkaline Phosphatase 42 (34-104) U/L Troponin I High Sens 18.3 (0-20) pg/ml B-Natriuretic Peptide 189 H (0-100) pg/ml Total Protein 7.1 (6.0-8.3) gm/dl Albumin 3.4 (3.4-5.0) gm/dl Globulin 3.7 (2.5-4.0) gm/dl Albumin/Globulin Ratio 0.9 (0.9-2) Procalcitonin (0-0.5) ng/ml TSH 1.108 (0.300-4.500) uIu/ml Urine Color Yellow Urine Appearance Clear (Clear) Urine pH 7.0 (4.5-7.5) Ur Specific [place] 1.015 (1.000-1.030) Urine Protein 1+ H (Negative) Urine Glucose (UA) 1+ H (Negative) Urine Ketones Negative (Negative) Urine Blood Negative (Negative) Urine Nitrite Negative (Negative) Urine Bilirubin Negative (Negative) Urine Urobilinogen Negative (Negative) Ur Leukocyte Esterase Negative (Negative) Urine WBC (Auto) 0-5 (0-5) /hpf Urine RBC (Auto) 0-2 (0-2) /hpf U Hyaline Cast (Auto) 0-2 (0-2) /lpf U Epithel Cells (Auto) 0-2 (0-2) /hpf Urine Bacteria (Auto) None Seen (None Seen) Adenovirus (PCR) Not Detected (NotDetected) B. pertussis DNA (PCR) Not Detected (NotDetected) B.parapertussis DNA PCR Not Detected (NotDetected) C. pneumoniae DNA (PCR) Not Detected (NotDetected) Coronavirus OC43 (PCR) Not Detected (NotDetected) Coronavirus HKU1 (PCR) Not Detected (NotDetected) Coronavirus 229E (PCR) Not Detected (NotDetected) SARS-CoV-2 (PCR) Not Detected (NotDetected) Coronavirus NL63 (PCR) Not Detected (NotDetected) Human Metapneumovir PCR Not Detected (NotDetected) Influenza Type A (PCR) Not Detected (NotDetected) Influenza Type B (PCR) Not Detected (NotDetected) M. pneumoniae (PCR) Not Detected (NotDetected) Parainfluenza 1 (PCR) Not Detected (NotDetected) Parainfluenza 2 (PCR) Not Detected (NotDetected) Parainfluenza 3 (PCR) Not Detected (NotDetected) Parainfluenza 4 (PCR) Not Detected (NotDetected) RSV (PCR) Not Detected (NotDetected) Entero/Rhino (PCR) Not Detected (NotDetected) 02/10/25 02/10/25 02/10/25 Range/Units 10:10 10:20 14:25 WBC (4.8-10.8) K/ul RBC (4.70-6.10) M/uL Hgb (14.0-18.0) g/dl Hct (42.0-52.0) % MCV (80.0-100.0) fL MCH (25.0-34.0) pg MCHC (32.0-36.0) g/dL RDW Std Deviation (36.4-46.3) fL RDW Coeff of Roverto (11.5-14.5) % Plt Count (130-400) K/uL MPV (9.4-12.4) fL Immature Gran % (Auto) % Neut % (Auto) % Lymph % (Auto) % Stone % (Auto) % Eos % (Auto) % Baso % (Auto) % Neut # (Auto) (1.40-6.50) K/uL Lymph # (Auto) (1.20-3.40) K/uL Stone # (Auto) (0.11-0.59) K/uL Eos # (Auto) (0.00-0.50) K/uL Baso # (Auto) (0.00-0.20) K/uL Immature Gran # (Auto) (0.01-0.20) K/uL PT 26.7 H (9.0-12.0) Seconds INR 2.7 H (0.9-1.1) APTT 34 H (21-31) Seconds PTT Ratio 1.3 Sodium (136-145) mmol/L Potassium (3.5-5.1) mmol/L Chloride (98-107) mmol/L Carbon Dioxide (21-32) mmol/L Anion Gap (3-11) BUN (6-23) mg/dl Creatinine (0.6-1.4) mg/dl Est Cr Clr Drug Dosing ml/min eGFR BUN/Creatinine Ratio (10-20) Glucose (70-99(Fasting)) mg/dl POC Glucose (70-99) mg/dl Calcium (8.6-10.3) mg/dl Magnesium (1.7-2.4) mg/dl Total Bilirubin (0.2-1.0) mg/dl AST (13-39) U/L ALT (7-52) U/L Alkaline Phosphatase (34-104) U/L Troponin I High Sens 29.5 H D (0-20) pg/ml B-Natriuretic Peptide (0-100) pg/ml Total Protein (6.0-8.3) gm/dl Albumin (3.4-5.0) gm/dl Globulin (2.5-4.0) gm/dl Albumin/Globulin Ratio (0.9-2) Procalcitonin 1.64 H (0-0.5) ng/ml TSH (0.300-4.500) uIu/ml Urine Color Urine Appearance (Clear) Urine pH (4.5-7.5) Ur Specific [place] (1.000-1.030) Urine Protein (Negative) Urine Glucose (UA) (Negative) Urine Ketones (Negative) Urine Blood (Negative) Urine Nitrite (Negative) Urine Bilirubin (Negative) Urine Urobilinogen (Negative) Ur Leukocyte Esterase (Negative) Urine WBC (Auto) (0-5) /hpf Urine RBC (Auto) (0-2) /hpf U Hyaline Cast (Auto) (0-2) /lpf U Epithel Cells (Auto) (0-2) /hpf Urine Bacteria (Auto) (None Seen) Adenovirus (PCR) (NotDetected) B. pertussis DNA (PCR) (NotDetected) B.parapertussis DNA PCR (NotDetected) C. pneumoniae DNA (PCR) (NotDetected) Coronavirus OC43 (PCR) (NotDetected) Coronavirus HKU1 (PCR) (NotDetected) Coronavirus 229E (PCR) (NotDetected) SARS-CoV-2 (PCR) (NotDetected) Coronavirus NL63 (PCR) (NotDetected) Human Metapneumovir PCR (NotDetected) Influenza Type A (PCR) (NotDetected) Influenza Type B (PCR) (NotDetected) M. pneumoniae (PCR) (NotDetected) Parainfluenza 1 (PCR) (NotDetected) Parainfluenza 2 (PCR) (NotDetected) Parainfluenza 3 (PCR) (NotDetected) Parainfluenza 4 (PCR) (NotDetected) RSV (PCR) (NotDetected) Entero/Rhino (PCR) (NotDetected) Administered Medications Furosemide (Furosemide Inj 20 Mg/2 Ml Vial) 20 mg IV [id number] [facility] Stop: 03/12/25 11:29 Last Admin: 02/10/25 12:33 Dose: 20 mg Documented By: CRESENCIO Metoprolol Tartrate (Metoprolol Tartrate 50 Mg Tab) 50 mg PO BID AIMEE Stop: 03/12/25 11:29 Last Admin: 02/10/25 12:33 Dose: 50 mg Documented By: CRESENCIO Prednisone (Prednisone 5 Mg Tab) 5 mg PO BID AIMEE Stop: 03/12/25 11:29 Last Admin: 02/10/25 12:33 Dose: 5 mg Documented By: CRESENCIO Discontinued Medications Albuterol (Albut/Ipratrop 3mg/0.5mg Neb 3 Ml Vial) 3 ml NEB NOW STA; Protocol Stop: 02/10/25 08:27 Last Admin: 02/10/25 09:01 Dose: 3 ml Documented By: OZZY Ceftriaxone Sodium (Rocephin) 2,000 mg in 50 mls @ 100 mls/hr IV NOW STA Stop: 02/10/25 09:40 Last Infusion: 02/10/25 11:14 Dose: Infused Documented By: Admin: 02/10/25 10:22 Dose: 100 mls/hr Documented By: OZZY Doxycycline Hyclate 100 mg/ (Dextrose) 100 mls @ 50 mls/hr IV NOW STA Stop: 02/10/25 11:55 Last Infusion: 02/10/25 13:27 Dose: Infused Documented By: Admin: 02/10/25 11:22 Dose: 50 mls/hr Documented By: OZZY Imaging Data Radiologist's Impression: Chest X-Ray 02/10/25 08:23 XR chest 1V portable CLINICAL HISTORY: weakness COMPARISON STUDY: Chest CT November 06, 2024. Chest radiograph November 13, 2024. FINDINGS: There is no pneumothorax or pleural effusion. Lung volumes are normal. Interstitial thickening and patchy bilateral airspace opacities are present. Findings have progressed when compared to prior exam. Mild cardiomegaly is unchanged. Mediastinal contours are stable. IMPRESSION: Interstitial thickening and patchy bilateral airspace opacities. The findings may represent pulmonary edema or pneumonia. ACT 112: Negative or not required by law. Electronically signed by: Alberto Marrero M.D. 02/10/2025 8:51 AM Discharge Plan Visit Data Chief Complaint: Vomiting Stated Complaint: VOMITING ED Provider: Wilbur Barrios Discharge Problem: Pneumonia, Leukocytosis, Chills Patient Disposition: Admitted As Inpatient Condition: Fair Forms Stand Alone Forms: My [facility] [place] Prescriptions Prescriptions: No Action glipizide 10 mg Tablet See Rx Instructions .ROUTE .COMPLEX Rx Instructions: Take 20mg by mouth in the morning and 10mg by mouth at bedtime. metformin 1,000 mg Tablet 1,000 mg PO BID Rx Instructions: Per pharmacy, last filled 12/2023 x90 day supply. Family states pt still taking. atorvastatin [Lipitor] 20 mg Tablet 20 mg PO PM alendronate [Fosamax] 70 mg Tablet 70 mg PO WK Rx Instructions: TUESDAYS prednisone 5 mg Tablet 5 mg PO BID warfarin 5 mg Tablet See Rx Instructions .ROUTE .COMPLEX Rx Instructions: Take 5mg by mouth on Sun///Thu and 2.5mg all other days duloxetine 20 mg Capsule,Delayed Release(Dr/Ec) 20 mg PO QPM cholecalciferol (vitamin D3) [Vitamin D3] 50 mcg (2,000 unit) Tablet 50 mcg PO QAM acetaminophen [Tylenol Extra Strength] 500 mg Tablet 500 - 1,000 mg PO Q6H PRN (Reason: Pain) enalapril maleate 10 mg Tablet 10 mg PO QAM Qty: 30 0RF metoprolol tartrate 50 mg Tablet 50 mg PO BID Qty: 60 1RF Trulicity 4.5 mg/0.5 mL pen injector 4.5 mg subcut WK Rx Instructions: Advanced Probiotic 625 mg (10 billion cell) Capsule 1 cap PO DAILY Qty: 30 0RF metronidazole 500 mg tablet 500 mg PO BID Qty: 4 0RF Referrals Referrals: Sulman,Artemio A., DO [Primary Care Provider] -
[2025-02-10 09:37] LABS: Adenovirus PCR Not Detected (NotDetected); Bordetella parapertussis PCR Not Detected (NotDetected); Bordetella pertussis PCR Not Detected (NotDetected); Chlamydia pneumoniae PCR Not Detected (NotDetected); Coronavirus 229E PCR Not Detected (NotDetected); Coronavirus CoV-2 (COVID19)PCR Not Detected (NotDetected); Coronavirus HKU1 PCR Not Detected (NotDetected); Coronavirus NL63 PCR Not Detected (NotDetected); Coronavirus OC43PCR Not Detected (NotDetected); Human Metapneumovirus PCR Not Detected (NotDetected); Influenza A PCR Not Detected (NotDetected); Influenza B PCR Not Detected (NotDetected); Mycoplasma pneumoniae PCR Not Detected (NotDetected); Parainfluenza Virus 1 PCR Not Detected (NotDetected); Parainfluenza Virus 2 PCR Not Detected (NotDetected); Parainfluenza Virus 3 PCR Not Detected (NotDetected); Parainfluenza Virus 4 PCR Not Detected (NotDetected); Respiratory Syncytial VirusPCR Not Detected (NotDetected); Rhinovirus/Enterovirus PCR Not Detected (NotDetected)
[2025-02-10] MEDS: cefTRIAXone SODIUM 2,000 MG/50 ML BAG IV STA (10:22)
[2025-02-10 11:00] LABS: INR 2.7 (0.9-1.1); Partial Thromboplastin Ratio 1.3; Partial Thromboplastin Time 34 Seconds (21-31); Prothrombin Time 26.7 Seconds (9.0-12.0)
[2025-02-10] MEDS: DOXYCYCLINE HYCLATE 100 MG in DEXTROSE 5% MINI-B 100 ML IV STA (11:22)
--- NOTE | 2025-02-10 11:46 | History & Physical Report ---
Date of Service February 10, 2025 Assessment & Plan (1) Acute respiratory failure with hypoxia: (2) Pneumonia: (3) Acute on chronic diastolic (congestive) heart failure: Plan Assessment/plan Acute hypoxic respiratory failure Possible pneumonia Possible acute on chronic diastolic heart failure Patient presents to the hospital with chills, nausea and vomiting. He was found to be hypoxic at 83% on admission in [place] Leukocytosis present on admission BNP elevated to 189 PG/mL. Urinalysis not suggestive of infection Bio fire negative Sputum culture from last admission grew E. coli Chest x-ray on admission shows bilateral infiltrates; possible CHF/pneumonia Last echocardiogram from October 2024 with EF of 60 to 65%. Will start antibiotic with ceftriaxone and doxycycline for possible pneumonia.; follow-up on blood culture and sputum culture Will also start diuretics with 20 mg IV Lasix twice daily and follow clinical response; Repeat chest x-ray in couple of days to see response Nausea/vomiting Possible gastroenteritis Will obtain stool PCR if patient develops diarrhea He reports symptoms has resolved and wants regular diet. Monitor for recurrence. might need further imaging if recurrence of symptoms. Type 2 diabetes mellitushold home medication; on insulin while inpatient Atrial fibrillation with RVR; ventricular rate on admission around 100s; will give started 50 mg twice a day. Telemonitoring. Continue Coumadin Polymyalgia rheumaticacontinue on prednisone. DVT prophylaxis Coumadin DNR/DNI Time spent evaluating patient, direct bedside care, chart review, placing orders, interpretation of diagnostic studies, discussion with consultants, patient, and family members, as well as other required patient management activities is 75 minutes Please note the above document was generated using voice recognition software. It may contain grammatical, syntax or spelling errors. 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 Patient reports that he was feeling at his baseline last night but was woken up this morning with chills and episode of nausea and vomiting. He denies fever, shortness of breath, chest pain, abdominal pain diarrhea or urinary symptoms. He reports that the symptoms all resolved during the time of the interview. On presentation to the ED, he was afebrile, hypoxic at 83% in RA; tachycardic in atrial fibrillation and normotensive. He was found to have leukocytosis. BNP elevated to 189 PG/mL. BioFire negative. Chest x-ray shows bilateral infiltrates concerning for pulmonary edema or pneumonia. Last echocardiogram from October 2024 with EF of 60 to 65%. Allergies Allergy/AdvReac Type Severity Reaction Status Date / Time oxycodone Allergy Intermediate WHEEZING Verified 02/10/25 11:11 Home Medications Medication Instructions Recorded Confirmed Type alendronate 70 mg tablet (Fosamax) 70 mg PO WK 12/25/21 02/10/25 History atorvastatin 20 mg tablet (Lipitor) 20 mg PO PM 12/25/21 02/10/25 History cholecalciferol (vitamin D3) 50 50 mcg PO QAM 12/25/21 02/10/25 History mcg (2,000 unit) tablet (Vitamin D3) duloxetine 20 mg capsule,delayed 20 mg PO QPM 12/25/21 02/10/25 History release glipizide 10 mg tablet See Rx Instructions .Route .COMPLEX 12/25/21 02/10/25 History metformin 1,000 mg tablet 1,000 mg PO BID 12/25/21 02/10/25 History prednisone 5 mg tablet 5 mg PO BID 12/25/21 02/10/25 History warfarin 5 mg tablet See Rx Instructions .Route .COMPLEX 12/25/21 02/10/25 History acetaminophen 500 mg tablet 500 - 1,000 mg PO Q6H PRN Pain 12/30/22 02/10/25 History (Tylenol Extra Strength) enalapril maleate 10 mg tablet 10 mg PO QAM #30 tabs 01/03/23 02/10/25 Rx metoprolol tartrate 50 mg tablet 50 mg PO BID #60 tabs 01/03/23 02/10/25 Rx dulaglutide 4.5 mg/0.5 mL 4.5 mg subcut WK 11/06/24 02/10/25 History subcutaneous pen injector (Trulicity) L.acidop,casei,lactis,rham-B.lact,xenia 1 cap PO DAILY #30 caps 11/16/24 02/10/25 Rx 625 mg (10 billion cell) capsule (Advanced Probiotic) metronidazole 500 mg tablet 500 mg PO BID #4 tabs 11/16/24 02/10/25 Rx Past Med/Surg History Problem List (Updated 02/10/25 @ 11:42 by Wyatt Molina MD) Acute on chronic diastolic (congestive) heart failure Chills (Acute) Leukocytosis (Acute) Pneumonia (Acute) Demand ischemia Lactic acidosis Acute metabolic encephalopathy Aspiration pneumonitis Shock Aspiration into airway (Acute) Vomiting (Acute) AMS (altered mental status) (Acute) Sepsis (Acute) Acute respiratory failure with hypoxia (Acute) Human metapneumovirus (hMPV) pneumonia (Acute) Pulmonary edema (Acute) Atrial fibrillation with rapid ventricular response (Acute) Scrotal swelling Tight foreskin HTN, goal below 140/90 Steroid-induced osteoporosis Permanent atrial fibrillation ARF (acute renal failure) (Acute) Acute kidney injury (Acute) Dehydration (Acute) Dehydration (Acute) Gastroenteritis (Acute) Nausea (Acute) Weakness (Acute) Encounter for pre-operative examination Medical History Atrial fibrillation follows with Dr Sebastian, no cardioversion. managed with medications. Chronic steroid use Diabetes mellitus, type 2 NIDDM Hyperlipidemia Hypertension On anticoagulant therapy Osteoarthritis Polymyalgia rheumatica takes prednisone BID to manage. Surgical History H/O eye surgery bilateral tear duct procedures to place a "drain" History of arthroscopy of left shoulder History of cataract surgery History of colonoscopy S/P left knee arthroscopy Family History Other No family history of adverse response to anesthesia Social History (System 02/10/25 @ 08:31 by Annie Cortez) Smoking Status: Former smoker Tobacco Type: Cigarettes Second Hand Exposure: No; Do You Dip or Chew Tobacco: No; Hx Alcohol Use: No Hx Substance Use: No Preferred Language: Thai Communication Ability: Effective Office Admin Required: No Beliefs That Will Affect Care: None marital status: Current Living Situation: Spouse Feels Safe at Home: Yes Assistive Devices: None Review of Systems Review of Systems: All systems reviewed & are unremarkable except as noted in Subjective Physical Exam Physical Exam: On physical examination; Constitutional: WD/WN, vitals as above, NAD, sitting up in bed, pleasant, conve rsing easily Respiratory: Bilateral basal crackles present Cardiovascular: Irregular, no murmur, no edema Vessels: no JVD or carotid bruit Chest: normal inspection of chest Abdomen: normal bowel sounds, soft, nontender, no hepatosplenomegaly Musculoskeletal: no cyanosis or clubbing, extremities motor strength 5/5 Skin: no rashes, warm and dry normal turgor Neurologic: PERRL, EOMI, accommodation nl, no face palsy, no dysarthria CN's II- XI intact bilaterally and moves all extremities Psychiatric: A+Ox3, euthymic affect Results & Data Results & Data Vital Signs (Past 12 Hours) Vital Signs Temp Pulse Pulse Resp BP BP Pulse Ox 02/10/25 10:02 105 H 26 H 124/72 94 02/10/25 08:23 106 H 26 H 94 02/10/25 08:23 93 02/10/25 08:21 109 H 02/10/25 07:33 37 C 109 H 20 160/79 H 83 L O2 Del Method O2 Flow Rate 02/10/25 10:02 Nasal Cannula 2 02/10/25 08:23 Nasal Cannula 4 02/10/25 08:23 Nasal Cannula 4 02/10/25 08:21 02/10/25 07:33 Room Air
[2025-02-10] MEDS: predniSONE 5 MG TAB PO SCH (12:33)
[2025-02-10] MEDS: FUROSEMIDE INJ 20 MG/2 ML VIAL IV SCH (12:33)
[2025-02-10] MEDS: METOPROLOL TARTRATE 50 MG TAB PO SCH (12:33)
[2025-02-10] MEDS ORDERED: DEXTROSE 50% 50 ML SYRINGE IV PRN (16:33)
[2025-02-10] MEDS ORDERED: GLUCAGON FOR INJ 1 MG VIAL SQ PRN (16:33)
[2025-02-10] MEDS ORDERED: POLYETHYLENE (MIRALAX) 17 GM PACK PO PRN (16:33)
[2025-02-10] MEDS ORDERED: PHARMACY GLYCEMIC MGMT CONSULT PRN (16:33)
[2025-02-10] MEDS ORDERED: GLUCOSE 10 TAB/TUBE PO PRN (16:33)
[2025-02-10] MEDS ORDERED: ACETAMINOPHEN 325 MG TAB PO PRN (16:33)
[2025-02-10] MEDS ORDERED: CARBOHYDRATES FOR HYPOGLYCEMIA PO PRN (16:33)
[2025-02-10] MEDS ORDERED: GLUCOSE 40% GEL 15 GM TUBE PO PRN (16:33)
[2025-02-10] MEDS: WARFARIN SOD 2.5 MG TAB PO SCH (17:56)
[2025-02-10] MEDS: INSULIN ASPART PER UNIT CHARGE SC SCH (17:58)
[2025-02-10] MEDS: ATORVASTATIN 20 MG TAB PO SCH (20:50)
[2025-02-10] MEDS: LANTUS PER UNIT CHARGE SC SCH (20:50)
[2025-02-10] MEDS: DULoxetine HCL 20 MG CAP PO SCH (20:50)
[2025-02-10] MEDS: DOXYCYCLINE HYCLATE 100 MG CAP PO SCH (20:50)
[2025-02-10] MEDS ORDERED: LANTUS PER UNIT CHARGE SQ SCH (21:00)
--- OUTSIDE RECORDS SUMMARY | 2025-02-10 21:49 | External Medical Summary | Summary of Care ---
Author Name Unknown Organization [facility] Address [address] [place] [address] Phone [phone] Care Team Providers Care Account Installer Name Role Phone Artemio Truong DO Primary Care Provider [phone] Reason for Visit * Reason Comments Dosage Adjustment In Person (Anticoag Cl inic) Medication Discussion Encounter Details Date Type Department Care Team (Late st Contact Info) Description 02/09/2025 8:10 AM EDT Pharmacy Family Practice [address] [phone] [place], Pharmacist [address] [id number] Medication management* Allergies No known active allergiesdocumented as of this encounter (statuses as of 02/09/2025) Medications Blood Glucose Monitoring Suppl (ONETOUCH ULTRA 2) w/Device KITIndications:T ype 2 diabetes mellitus with hemoglobin A1c goal of less than 7.0% ([facility]) 12/16/19 19 Active acetaminophen (TYLENOL) 500 MG Tablet Take 1-2 Tablets by mouth every 6 hours as needed for Pain. Activ e Vitamin D3 50 MCG (1999) Oral Capsule Take 1 Capsule by mouth every evening. (Gummy) 30 Cap 5 08/11/20 21 Active Vitamin B 12 500 MCG Oral TabletIndication s:Vitamin B 12 deficiency Take 1 Tablet by mouth every evening. (Gummy) 11/04/19 24 Active Sildenafil Citrate 20 MG Oral Tablet (Revatio)Indicat ions:Other male erectile dysfunction take 5 tablets by mouth daily if needed for ERECTILE DYSFUNCTION TAKE 1 HOUR BEFORE SEX 20 Tablet 3 02/04/20 24 Active glipiZIDE 10 MG Oral Tablet (Glucotrol)Indic ations:Type 2 diabetes mellitus with hemoglobin A1c goal of less than 7.0% ([facility]) TAKE TWO TABLETS BY MOUTH WITH BREAKFAST, ONE TABLET WITH LUNCH AND ONE TABLET WITH DINNER 360 Tablet 3 5 7:25 AM EST 03/18/20 24 025 Active Additional Information Patient taking differently: 10 mg, Two in the morning and one with dinner, Reported on 02/09/2025 Alendronate Sodium 70 MG Oral Tablet (Fosamax) TAKE ONE TABLET BY MOUTH ONCE A WEEK WITH 8 OZ OF WATER 30 MINUTES BEFORE FIRST MEAL OF THE DAY. REMAIN UPRIGHT FOR 30 MINUTES AFTER TAKING TABLET 15 Tablet 2 5 11:01 AM EST 07/01/20 24 Active predniSONE 5 MG Oral Tablet (Deltasone)Indic ations:PMR (polymyalgia rheumatica) (HCC) TAKE ONE TABLET BY MOUTH EVERY MORNING & ONE TABLET BEFORE BEDTIME 200 Tablet 2 5 1:30 PM EST 08/01/20 24 025 Active Metoprolol Tartrate 50 MG Oral Tablet (Lopressor) TAKE ONE TABLET BY MOUTH EVERY MORNING AND AT BEDTIME 200 Tablet 1 5 11:01 AM EST 09/05/20 24 Active Trulicity 4.5 MG/0.5ML Subcutaneous Solution Auto-injector (Dulaglutide)Ind ications:Type 2 diabetes, HbA1C goal < 8% ([facility]) Inject 4.5 mg under the skin once a week. 2 mL 11 5 8:05 AM EDT 09/15/20 24 Active Warfarin Sodium 5 MG Oral Tablet (Coumadin)Indica tions:Chronic atrial fibrillation ([facility]) Take 1 tablet by mouth once daily or as directed by anticoagulation clinic 90 Tablet 3 10/21/19 25 Active Probiotic & Acidophilus Ex St Oral Capsule Take 1 Capsule by mouth in the morning. 11/16/19 25 Active Enalapril Maleate 10 MG Oral Tablet (Vasotec) TAKE ONE TABLET BY MOUTH EVERY MORNING 100 Tablet 5 11:01 AM EST 12/13/19 25 Active OneTouch Delica Lancets 33G Use to test once daily. 100 Each 3 5 11:01 AM EST 12/14/19 25 Active OneTouch Ultra Test In Vitro Strip (Glucose Blood) Use to test once daily. 100 Strip 3 5 11:01 AM EST 12/14/19 25 Active DULoxetine HCl 20 MG Oral Capsule Delayed Release Particles (Cymbalta)Indica tions:Polymyalgi a rheumatica (HCC) TAKE ONE CAPSULE BY MOUTH EVERY DAY. DO NOT CUT, CRUSH, OR CHEW. 100 Capsule 3 5 8:54 AM EDT 12/29/19 25 Active Atorvastatin Calcium 20 MG Oral Tablet (Lipitor) Take 1 Tablet by mouth in the morning. 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 Type 2 diabetes, HbA1C goal < 8% 07/26/2009 Overview (02/05/2016): Modified per Diabetes protocol #14. ICD-10 update of inactive term Permanent atrial fibrillation 10/19/2008 documented as of this encounter (statuses as of 02/09/2025) Resolved Problems Problem Noted Date Diagnosed Date [...] as of this encounter (statuses as of 02/09/2025) Immunizations Name Administration Dates Next Due COVID-19 mRNA, LNP-s, No Pre serve, 2-Dose Series (Moderna) 12/22/2020,11/24/2020 COVID-19, MRNA-LNP, PF, 30 M CG/0.3 mL, 12 YRS AND ABOVE, IM (PFIZER-Comirnat) 07/12/2024,08/03/2023 COVID-19, mRNA, LNP-s, PF, B ooster, [...] Date Recorded PHQ Adult Total Score 0 11/22/2024 Hunger Vital Sign Answer Date Recorded Within the past 12 months, y ou worried that your food would run out before you got the money to buy more. Never true 11/18/19 25 Within the past 12 months, t he food you bought just didn't last and you didn't have money to get more. Never true 11/18/2024 Childcare Answer Date Recorded Do you feel overwhelmed with taking care of a child, family member or friend? No 11/18/2024 Does your family need help f inding childcare? (Household - for ages 0-17 years) Not on file 11/18/2024 Clothing Answer Date Recorded Have you been unable to get clothing when it was really needed? No 11/18/2024 Is your family able to get c lothes or diapers when needed? (Household - for ages 0-17 years) Not on file 11/18/2024 Personal Safety Answer Date Recorded Do you feel unsafe or have concerns for your saf ety? No 11/18/2024 Do you have concerns for you r family's safety? (Household - for ages 0-17 years) Not on file 11/18/2024 Utilities Answer Date Recorded Do you have trouble paying y our heating, water, or electric bill? No 11/18/2024 Is your family able to pay t he heat, water, or electric bill? (Household - for ages 0-17 years) Not on file 11/18/2024 Does your family have access to good internet? (Household - for ages 0-17 years) Not on file 11/18/2024 Employment Status Answer Date Recorded Are you unemployed or without regular income? No 11/18/2024 Does the household have a re gular source of income? (Household - for ages 0-17 years) Not on file 11/18/2024 Social Connections Answer Date Recorded How often do you feel lonely or isolated from th ose around you? Never 11/18/2024 Financial Resource Strain Answer Date R ecorded Do you have any trouble payi ng for your medications, or do you think you might in the future? No 11/18/2024 Does your family have troubl e paying for medicine? (Household - for ages 0-17 years) Not on file 11/18/2024 Transportation Needs Answer Date Record ed Do you have trouble getting a ride to medical visits or work? (Adult - for ages 18 years and over) Not on file 11/18/2024 Does your family have a hard time getting a ride to doctors visits? (Household - for ages 0-17 years) Not on file 11/18/2024 Has lack of transportation k ept you from medical appointments, meetings, work, or from getting things needed for daily living? Check all that apply. No 11/18/2024 Do you (or your family) have trouble finding or paying for a ride (transportation)? (Household - for ages 0-17 years) Not on file 11/18/2024 Housing Stability Answer Date Recorded Do you currently live in a s helter or have no steady place to sleep at night? No 11/18/2024 Do you think you are at risk of becoming homeless? (Adult - for ages 18 years and over) Not on file 11/18/2024 Does your family worry about paying for your home or becoming homeless? (Household - for ages 0-17 years) Not on file 0 11/18/2024 Are you homeless or worried that you might be in the future? No 11/18/2024 Are you (or your family) shayy eless [...] ages 0-17 years) Not on file 11/03/2023 Food Insecurity Answer Date Recorded Within the past 12 months, y ou worried that your food would run out before you got the money to buy more. Never true 11/18/19 25 Within the past 12 months, t he food you bought just didn't last and you didn't have money to get more. Never true 11/18/2024 Do you need food for this week? No 11/18/2024 Sex and Gender Information Value Date Recorded [...] Progress Notes * Cecy Fallon RPh - 02/09/2025 8:07 AM EDT CMR completed today in Medication Management encounter (02/09/25). documented in this encounter Plan of Treatment Upcoming Encounters Date Type Department Care Team (Late st Contact Info) Description 03/07/2025 10:15 AM EDT Imaging Radiology [facility]st [facility] [place] [address] [place] [phone] 03/09/2025 8:30 AM EDT Anticoagulation Family Practice 65 [facility] [phone] [place], Pharmacist [address] [address] 03/09/2025 8:40 AM EDT Office Visit Family Practice 65 [facility] [address] [facility] [phone] Sulman, Artemio A, DO [address] [facility] [place] [address] 08/08/2025 8:00 AM EDT Office Visit Ophthalmology, [facility] [address] [place] [phone] Brenden Ellis, DO [address] [place] [address] 08/14/2025 9:00 AM EST Imaging Radiology [facility] [address] [place] [address] 08/31/2025 8:30 AM EST Office Visit Rheumatology [facility] [address] [place] [phone] Iván Golden CRNP [address] [place] [phone] Health Maintenance Due Date Last Done Comments Adult Wellness Visit 03/31/2015 03/31/2014 Diabetic Eye Exam 11/23/2024 11/23/2023, , 11/23/2023, Additional history exists COVID-19 Vaccine ( season) 2025 07/12/2024, 08/03/2023, 08/05/2022, Additional history exists HbA1c 05/07/2025 11/07/2024, 1010/2023, 03/10/2024, Additional history exists Albumin/Creatinine Ratio 07/12/20252 024, 06/23/2023, 09/01/2022, Additional history exists Diabetic Foot Exam 07/12/2025 07/12/2024, 0 04/29/2023, 07/23/2022, Additional history exists DXA Scan 08/10/2025 08/10/2023, 07/14, 08/05/2021, Additional history exists Depression Screening 11/22/2025 11/22/2024 B-12 12/07/2025 12/07/2024, 11/13, 11/03/2023, Additional history exists GFR 12/07/2025 12/07/2024, 08/13, 11/03/2023, Additional history exists DTap/Tdap Vaccines (3 - Td or Tdap) 07/23/2032 07/23/2022, 04/19/2012, 01/29/2001 Pneumococcal Vaccine: 50+ Years Completed 03/03/2016, 01/03/2009, 09/01/2003 Zoster Vaccines Completed 03/27/2022, 11/26/2021 Influenza Vaccine (FLU shot) Completed , 06/24/2024, 06/23/2023, Additional history exists VITAMIN D LEVEL ONCE IN A LIFETIME-USE SMARTSET# [id number] Completed 09/05/2024, 11/26/2021, 08/09/2021, Additional history exists HPV (Gardasil) Vaccine Aged Out No lo nger eligible based on patient's age to complete this topic Hepatitis B Vaccine Aged Out No longe r eligible based on patient's age to complete this topic MENINGOCOCCAL (MENACTRA/MENVEO) Aged Out No longer eligible based on patient's age to complete this topic Meningitis B Vaccine (Bexsero/Trumemba) Aged Out No longer eligible based on patient's age to complete this topic documented as of this encounter Medical Devices Not on filedocumented as of this encounter Visit Diagnoses Diagnosis Medication management- Primary Encounter for long-term (current) use of other medications documented in this encounter Care Teams Account Installer Relationship Specialty Start Date End Date Artemio Truong DO [address] [place] [address] PCP - General Internal Medicine 04/20/24 documented as of this encounter
--- OUTSIDE RECORDS SUMMARY | 2025-02-10 21:50 | External Medical Summary | Summary of Care ---
Author Name Unknown Organization [facility] Address [address] [facility] [place] [address] Phone [phone] Care Team Providers Care Paving Inspector Name Role Phone Artemio Truong DO Primary Care Provider [phone] Reason for Visit * Reason Comments Dosage Adjustment In Person (Anticoag Cl inic) Encounter Details Date Type Department Care Team (Late st Contact Info) Description 02/09/2025 8:00 AM EDT Anticoagulation Family Practice 65 [facility] [address] [place] [address] [place], Pharmacist [address] [address] Anticoagulation management encounter*; Permanent atrial fibrillation (HCC); [facility] current use of anticoagulant therapy Allergies No known active allergiesdocumented as of this encounter (statuses as of 02/09/2025) Medications Blood Glucose Monitoring Suppl (ONETOUCH ULTRA 2) w/Device KITIndications:T ype 2 diabetes mellitus with hemoglobin A1c goal of less than 7.0% ([facility]) 12/16/19 19 Active acetaminophen (TYLENOL) [...] 1 Tablet by mouth every evening. (Gummy) 01/24/20 24 Active Sildenafil Citrate 20 MG Oral Tablet (Revatio)Indicat ions:Other male erectile dysfunction take 5 tablets by mouth daily if needed for ERECTILE DYSFUNCTION TAKE 1 HOUR BEFORE SEX 20 Tablet 3 02/04/20 24 Active glipiZIDE 10 MG Oral Tablet (Glucotrol)Indic ations:Type 2 diabetes mellitus with hemoglobin A1c goal of less than 7.0% ([facility]) TAKE TWO TABLETS BY MOUTH [...] MG Oral Tablet (Deltasone)Indic ations:PMR (polymyalgia rheumatica) ([facility]) TAKE ONE TABLET BY MOUTH [...] ications:Type 2 diabetes, HbA1C goal < 8% ([facility]) Inject 4.5 mg under the skin once a week. 2 mL 11 5 8:05 AM EDT 09/15/20 24 Active Warfarin Sodium 5 MG Oral Tablet (Coumadin)Indica tions:Chronic atrial fibrillation ([facility]) Take 1 tablet by mouth [...] [facility] current use of systemic steroids 01/10 [facility] [...] Notes * Cecy Fallon RPh - 02/09/2025 8:04 AM EDT Medication Therapy Disease Management - Anticoagulation Patient: Mitchel Mcpherson | : 1945 Subjective Patient-Reported Symptoms: Patient Findings Negatives: Signs/symptoms of thrombosis, Signs/symptoms of bleeding, Change in health, Change in alcohol use, Change in activity, Upcoming invasive procedure, Missed doses, Extra doses, Change in medications, Change in diet/appetite, Bruising Objective Current Warfarin Dose As of 02/09/2025 Warfarin maintenance plan: 2.5 mg (5 mg x 0.5) every Mon, Wed, Fri; 5 mg (5 mg x 1) all other days INR Result As of 02/09/2025 INR goal: 2.0-3.0 INR used for dosin.8 (02/09/2025) Assessment & Plan Warfarin Plan As of 02/09/2025 Full warfarin instructions: 2.5 mg every Mon, Wed, Fri; 5 mg all other days No change documented: Cecy Fallon [facility] Next INR check: 03/09/2025 Repeat PT/INR in 6 week(s) Weekly dose: not changed Additional Dosing Information: Description (Takes warfarin in AM) I spent a total of 10-19 minutes (exact time 10 mins) on the date of service in preparation, delivery, and documentation of the care provided to Mitchel Mcpherson excluding any time spent in the performance of separately billed services or time spent by another provider/QHP. Cecy Amaya [facility] Clinical Pharmacist 02/09/2025, 8:05 AM documented in this encounter Plan of Treatment Upcoming Encounters Date Type Department Care Team (Late st Contact Info) Description 03/07/2025 10:15 AM EDT Imaging Radiology [facility] 1st [facility] [address] [place] [address] 03/09/2025 8:30 AM EDT Anticoagulation Family Practice [address] [place] [address] 293 [place] [address] [place], Pharmacist [address] [place] [address] 03/09/2025 8:40 AM EDT Office Visit Family Practice 65 [facility] 293 [place] [address] Artemio Truong, 293 [facility] [place] [address] 08/08/2025 8:00 AM EDT Office Visit Ophthalmology, [facility] [address] [place] [address] Brenden Ellis, DO [address] [place] [address] 08/14/2025 9:00 AM EST Imaging Radiology [facility] [address] [place] [address] 08/31/2025 8:30 AM EST Office Visit Rheumatology [facility] [address] [place] [phone] Iván Golden CRNP [address] [place] [address] Health Maintenance Due Date Last Done Comments Adult Wellness Visit 03/31/2015 03/31/2014 Diabetic Eye Exam 11/23/2024 11/23/2023, , 11/23/2023, Additional history exists COVID-19 Vaccine ( season) 2025 07/12/2024, 08/03/2023, 08/05/2022, Additional history exists HbA1c 05/07/2025 11/07/2024, 1010/2023, 03/10/2024, Additional history exists Albumin/Creatinine Ratio 07/12/2025 024, [...] D LEVEL ONCE IN A LIFETIME-USE SMARTSET# [id number] Completed 09/05/2024, 11/26/2021, 08/09/2021, Additional history exists [...] Comments INR FINGERSTICK, POINT OF CARE STAT 02/09/2025 8:06 AM EDT Permanent atrial fibrillation (HCC) Anticoagulation management encounter [facility] current use of anticoagulant therapy documented in this encounter Results * INR FINGERSTICK, POINT OF CARE (02/09/2025 8:06 AM EDT) Fingerstick INR 2.8 INR 9:57 AM EDT [facility] 56-21 Blood 02/09/2025 8:06 AM EDT 02/09/2025 9:57 AM EDT Narrative [facility] 56-21 - 02/09/2025 9:57 AM EDT Therapeutic ranges for non-operative patients: Prophylaxsis/treatment of DVT: (Range:2.0-3.0) Treatment of pulmonary embolism:(Range:2.0-3.0) Prevention of systemic embolism from: -tissue heart valves -acute myocardial infarction -valvular heart disease -atrial fibrillation (Range: 2.0-3.0) Mechanical prosthetic valves: (Range: 2.5-3.5) us Cecy oRche [facility] LAB PO INT OF CARE TEST DOCKED DEVICE UNSOLICITED RESULTS Final Result [facility] [address] [place] [address] documented in this encounter Visit Diagnoses Diagnosis Anticoagulation management encounter- Primary Encounter for therapeutic drug monitoring Permanent atrial fibrillation (HCC) Atrial fibrillation [facility] current use of anticoagulant therapy documented in this encounter Care Teams Paving Inspector Relationship Specialty Start Date End Date Artemio Truong DO [address] [place] [address] PCP - General Internal Medicine 04/20/24 documented as of this encounter"
--- OUTSIDE RECORDS SUMMARY | 2025-02-10 21:50 | External Medical Summary ---
Author Name Unknown Address Unknown Organization : Laboratory Report Ordering Provider Test Date Status ROBSON GARDNER 01/05/2025 08:07:12 Final Therapeutic ranges for non-o perative patients:
Prophylaxsis/treatment of DVT: (Range:2.0-3.0)
Treatment of pulmonary embolism:(Range:2.0-3.0)
Prevention of systemic embolism from:
-tissue heart valves
-acute myocardial infarction
-valvular heart disease
-atrial fibrillation
(Range: 2.0-3.0)
Mechanical prosthetic valves: (Range: 2.5-3.5) Observation Date Value Abnormality Reference (Units ) Status INR in Capillary blood by Coagulation assay 01/05/2025 08:07:12 2.4 (INR) Final Performing Location
--- OUTSIDE RECORDS SUMMARY | 2025-02-10 21:50 | External Medical Summary | Summary of Care ---
Author Name Unknown Organization [facility] Address [address] [place] [facility] [facility] [place] [address] Phone [phone] Care Team Providers Care Outside Residential Sales Professional Name Role Phone Artemio Truong DO Primary Care Provider [phone] Reason for Visit * Reason Comments Dosage Adjustment In Person (Anticoag Cl inic) Encounter Details Date Type Department Care Team (Late st Contact Info) Description 01/05/2025 8:00 AM EDT Anticoagulation Family Practice [address] [phone] [place], Pharmacist [address] [address] Anticoagulation management encounter*; Permanent atrial fibrillation (HCC); terminal gauger supervisor current use of anticoagulant therapy Allergies No known active allergiesdocumented as of this encounter (statuses as of 01/05/2025) Medications Blood Glucose Monitoring Suppl (ONETOUCH ULTRA 2) w/Device KITIndications:T ype 2 diabetes mellitus with hemoglobin A1c goal of less than 7.0% ([facility]) 12/16/19 19 Active acetaminophen (TYLENOL) 500 [...] than 7.0% ([facility]) TAKE TWO TABLETS BY MOUTH WITH BREAKFAST, ONE TABLET WITH LUNCH AND ONE TABLET WITH DINNER 360 Tablet 3 5 7:25 AM EST 03/18/20 24 025 Active Additional Information Patient taking differently: 10 mg, Two in the morning and one with dinner, Reported on 12/27/2024 Alendronate Sodium 70 MG Oral Tablet (Fosamax) TAKE ONE TABLET BY MOUTH ONCE A WEEK WITH 8 OZ OF WATER 30 MINUTES BEFORE FIRST MEAL OF THE DAY. REMAIN UPRIGHT FOR 30 MINUTES AFTER TAKING TABLET 15 Tablet 2 5 11:01 AM EST 07/01/20 24 Active Atorvastatin Calcium 20 MG Oral Tablet (Lipitor) Take 1 Tablet by mouth in the morning. 100 Tablet 1 5 6:42 PM EST 07/23/20 24 Active predniSONE 5 MG Oral Tablet (Deltasone)Indic ations:PMR (polymyalgia rheumatica) (HCC) TAKE ONE TABLET BY MOUTH EVERY MORNING & ONE TABLET BEFORE BEDTIME 200 Tablet 2 5 1:30 PM EST 08/01/20 24 025 Active Metoprolol Tartrate 50 MG Oral Tablet (Lopressor) TAKE ONE TABLET BY MOUTH EVERY MORNING AND AT BEDTIME 200 Tablet 1 5 11:01 AM EST 09/05/20 24 Active Additional Information Patient not taking.Reported on 12/27/2024 Trulicity 4.5 MG/0.5ML Subcutaneous Solution Auto-injector (Dulaglutide)Ind ications:Type 2 diabetes, HbA1C goal < 8% ([facility]) Inject 4.5 mg under the skin once a week. 2 mL 11 5 11:00 AM EDT 09/15/20 24 Active Warfarin Sodium 5 MG Oral Tablet (Coumadin)Indica tions:Chronic atrial fibrillation ([facility]) Take 1 tablet by mouth once [...] 5 8:54 AM EDT 12/29/19 25 Active documented as of this encounter (statuses as of 01/05/2025) Active Problems Problem Noted Date Diagnosed Date [...] Protocol #27. 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 Type 2 diabetes, HbA1C goal < 8% 07/26/2009 Overview (02/05/2016): Modified per Diabetes protocol #14. ICD-10 update of inactive term Permanent atrial fibrillation 10/19/2008 documented as of this encounter (statuses as of 01/05/2025) Resolved Problems Problem Noted Date Diagnosed Date [...] as of this encounter (statuses as of 01/05/2025) Immunizations Name Administration Dates Next Due COVID-19 mRNA, LNP-s, No Pre serve, 2-Dose Series (Moderna) 12/22/2020,11/24/2020 COVID-19, MRNA-LNP, PF, 30 M CG/0.3 mL, 12 YRS AND ABOVE, IM (PFIZER-Comirnaty) 07/12/2024,08/03/2023 COVID-19, mRNA, LNP-s, PF, B ooster, 100mcg/0.5mg (Moderna) 03/08/2022,08/23/2021 Covid-19, Mrna, Lnp-s, Pf, B ivalent, 30 Mcg, IM, 12 yrs and above (OrthAlign) 08/05/2022 Pneumococcal Conjugate Vacc, 13 Valent (Prevnar) [...] Progress Notes * Cecy Fallon RPh - 01/05/2025 8:05 AM EDT Medication Therapy Disease Management - Anticoagulation Patient: Mitchel Mcpherson | : 1945 Subjective Patient-Reported Symptoms: Patient Findings Negatives: Signs/symptoms of thrombosis, Signs/symptoms of bleeding, Change in health, Change in alcohol use, Change in activity, Upcoming invasive procedure, Missed doses, Extra doses, Change in medications, Change in diet/appetite, Bruising Objective Current Warfarin Dose As of 01/05/2025 Warfarin maintenance plan: 2.5 mg (5 mg x 0.5) every Mon, Wed, Fri; 5 mg (5 mg x 1) all other days INR Result As of 01/05/2025 INR goal: 2.0-3.0 INR used for dosin.4 (01/05/2025) Assessment & Plan Warfarin Plan As of 01/05/2025 Full warfarin instructions: 2.5 mg every Mon, Wed, Fri; 5 mg all other days No change documented: Cecy Fallon val Next INR check: 02/09/2025 Repeat PT/INR in 5 week(s) Weekly dose: not changed Additional Dosing Information: Description (Takes warfarin in AM) I spent a total of 10-19 minutes (exact time 10 mins) on the date of service in preparation, delivery, and documentation of the care provided to Mitchel Mcpherson excluding any time spent in the performance of separately billed services or time spent by another provider/QHP. Cecy Amaya [facility] Clinical Pharmacist 01/05/2025, 8:06 AM documented in this encounter Plan of Treatment Upcoming Encounters Date Type Department Care Team (Late st Contact Info) Description 02/06/2025 8:00 AM EDT Office Visit Ophthalmology, [facility] [address] [place] [phone] Brenden Ellis DO [address] [place] [address] 02/09/2025 8:00 AM EDT Anticoagulation Family Practice 65 [facility] [address] [facility] [address] [place], Pharmacist [address] [address] 03/07/2025 10:15 AM EDT Imaging Radiology [facility] 1st [facility] [address] [place] [address] 03/09/2025 8:30 AM EDT Anticoagulation Family Practice 65 [facility] [address] [facility] [address] [place], Pharmacist [address] [address] 03/09/2025 8:40 AM EDT Office Visit Family Practice 65 [facility] [address] [facility] [address] Artemio Truong, DO [address] [place] [address] 08/14/2025 9:00 AM EST Imaging Radiology [facility] [address] [place] [phone] 08/31/2025 8:30 AM EST Office Visit Rheumatology [facility] [address] [place] [phone] Iván Golden, TATIANA [address] [facility] [place] [address] Health Maintenance Due Date Last Done Comments Adult Wellness Visit 03/31/2015 03/31/2014 Diabetic Eye Exam 11/23/2024 11/23/2023, , 11/23/2023, Additional history exists COVID-19 Vaccine ( season) 2025 07/12/2024, 08/03/2023, 08/05/2022, Additional history exists HbA1c 05/07/2025 11/07/2024, 10/0 10/2023, 03/10/2024, Additional history exists Albumin/Creatinine Ratio 07/12/2025 [...] D LEVEL ONCE IN A LIFETIME-USE SMARTSET# [id number] Completed 09/05/2024, 11/26/2021, 08/09/2021, Additional history exists [...] Comments INR FINGERSTICK, POINT OF CARE STAT 01/05/2025 8:07 AM EDT Permanent atrial fibrillation (HCC) Anticoagulation management encounter halfway current use of anticoagulant therapy documented in this encounter Results * INR FINGERSTICK, POINT OF CARE (01/05/2025 8:07 AM EDT) Fingerstick INR 2.4 INR 8:18 AM EDT [facility] 56-21 Blood 01/05/2025 8:07 AM EDT 01/05/2025 8:18 AM EDT Narrative [facility] 56-21 - 01/05/2025 8:18 AM EDT Therapeutic ranges for non-operative patients: Prophylaxsis/treatment of DVT: (Range:2.0-3.0) Treatment of pulmonary embolism:(Range:2.0-3.0) Prevention of systemic embolism from: -tissue heart valves -acute myocardial infarction -valvular heart disease -atrial fibrillation (Range: 2.0-3.0) Mechanical prosthetic valves: (Range: 2.5-3.5) Cecy Roche [facility] LAB PO INT OF CARE TEST DOCKED DEVICE UNSOLICITED RESULTS Final Result [facility] 56-73 [address] [facility] [address] documented in this encounter Visit Diagnoses Diagnosis Anticoagulation management encounter- Primary Encounter for therapeutic drug monitoring Permanent atrial fibrillation (HCC) Atrial fibrillation halfway current use of anticoagulant therapy documented in this encounter Care Teams Outside Residential Sales Professional Relationship Specialty Start Date End Date Artemio Truong DO [address] [place] [address] PCP - General Internal Medicine 04/20/24 documented as of this encounter"
--- OUTSIDE RECORDS SUMMARY | 2025-02-10 21:50 | External Medical Summary | Summary of Care ---
Author Name Unknown Organization [facility] Address [address] [place] [address] Phone [phone] Care Team Providers Care Video Conference Specialist Name Role Phone Artemio Truong DO Primary Care Provider [phone] Reason for Visit * Reason Onset Date Comments Other 01/09/2025 Encounter Details Date Type Department Care Team (Late st Contact Info) Description 01/09/2025 Telephone Family Practice [address] [place] [address] [place] [address] Artemio Truong DO [address] [place] [address] Other Allergies No known active allergiesdocumented as of this encounter (statuses as of 01/09/2025) Medications Blood Glucose Monitoring Suppl (ONETOUCH ULTRA 2) w/Device KITIndications:T ype 2 diabetes mellitus with hemoglobin A1c goal of less than 7.0% ([facility]) 12/16/19 19 Active acetaminophen (TYLENOL) [...] hemoglobin A1c goal of less than 7.0% ([facility]) TAKE TWO TABLETS BY MOUTH WITH [...] ications:Type 2 diabetes, HbA1C goal < 8% ([facility]) Inject 4.5 mg under the skin once a week. 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 Type 2 diabetes, HbA1C goal < 8% 07/26/2009 Overview (02/05/2016): Modified per Diabetes protocol #14. ICD-10 update of inactive term Permanent atrial fibrillation 10/19/2008 documented as of this encounter (statuses as of 01/09/2025) Resolved Problems Problem Noted Date Diagnosed Date [...] as of this encounter (statuses as of 01/09/2025) Immunizations Name Administration Dates Next Due COVID-19 [...] encounter Miscellaneous Notes * Telephone Encounter - Luis Alexander MED ASSIST - 01/09/2025 9:27 AM EDT Patient called in would like "ear cleaned" scheduled for 01/09. documented in this encounter Plan of Treatment Upcoming Encounters Date Type Department Care Team (Late st Contact Info) Description 02/06/2025 8:00 AM EDT Office Visit Ophthalmology, [facility] [address] [place] [phone] Brenden Ellis, [address] [place] [address] 02/09/2025 8:00 AM EDT Anticoagulation Family Practice 65 [facility] 293 [place] [phone] [place], Pharmacist 65 [facility] 293 [facility] [address] 03/07/2025 10:15 AM EDT Imaging Radiology [address] College [address] [place] [address] 03/09/2025 8:30 AM EDT Anticoagulation Family Practice [address] [place] [address] 293 [facility] [address] [place], Pharmacist [address], [place] [address] 03/09/2025 8:40 AM EDT Office Visit Family Practice 65 [facility] 293 [facility] [address] Artemio Truong, DO 293 [facility] [address] 08/14/2025 9:00 AM EST Imaging Radiology [facility] [address] [place] [address] 08/31/2025 8:30 AM EST Office Visit Rheumatology [facility] [address] [place] [address] Iván Golden CRNP [address] [facility] [address] Health Maintenance Due Date Last Done Comments Adult Wellness Visit 03/31/2015 03/31/2014 Diabetic Eye Exam 11/23/2024 11/23/2023, , 11/23/2023, Additional history exists COVID-19 Vaccine ( season) 2025 07/12/2024, 08/03/2023, 08/05/2022, Additional history exists HbA1c 05/07/2025 11/07/2024, 10/0 10/2023, 03/10/2024, Additional history exists Albumin/Creatinine Ratio 07/12/20252 [...] D LEVEL ONCE IN A LIFETIME-USE SMARTSET# [id number] Completed 09/05/2024, 11/26/2021, 08/09/2021, Additional history exists [...] filedocumented as of this encounter Care Teams Video Conference Specialist Relationship Specialty Start Date End Date Artemio Truong DO [address] [place] [address] PCP - General Internal Medicine 04/20/24 documented as of this encounter
--- OUTSIDE RECORDS SUMMARY | 2025-02-10 21:50 | External Medical Summary | Summary of Care ---
Author Name Unknown Organization [facility] Address [address] [place] [address] Phone [phone] Care Team Providers Care Safety Belt Installer Name Role Phone Pascual Truong DO Primary Care Provider [phone] Reason for Visit * Reason Comments Medication Refill Encounter Details Date Type Department Care Team (Late st Contact Info) Description 02/03/2025 Refill Family Practice [address] [place] [address] [place] [address] Pascual Truong DO [address] [place] [address] Type 2 diabetes, HbA1C goal < 8% ([facility])*; DYSLIPIDEMIA, GOAL LDL BELOW 100 Allergies No known active allergiesdocumented as of this encounter (statuses as of 02/04/2025) Medications Blood Glucose Monitoring Suppl ([employer]ner[employer] EnvironmentalTOUCH ULTRA 2) w/Device KITIndications: Type 2 diabetes mellitus with hemoglobin A1c goal of less than 7.0% ([facility]) 12/16/19 19 Active acetaminophen (TYLENOL) 500 [...] hemoglobin A1c goal of less than 7.0% ([facility]) TAKE TWO TABLETS BY MOUTH WITH [...] MG Oral Tablet (Deltasone)Loyda cations:PMR (polymyalgia rheumatica) ([facility]) TAKE ONE TABLET BY MOUTH EVERY [...] 12/27/2024 Trulicity 4.5 MG/0.5ML Subcutaneous Solution Auto-injector (Dulaglutide)In dications:Type 2 diabetes, HbA1C goal < 8% ([facility]) Inject 4.5 mg under the skin once a week. 2 mL 11 5 8:05 AM EDT 09/15/20 24 Active Warfarin Sodium 5 MG Oral Tablet (Coumadin)Indic ations:Chronic atrial fibrillation ([facility]) Take 1 tablet by mouth once [...] mouth in the morning. 100 Tablet 1 02/05/20 25 Active Atorvastatin Calcium 20 MG Oral Tablet (Lipitor) Take 1 Tablet by mouth in the morning. 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 Type 2 diabetes, HbA1C goal < 8% 07/26/2009 Overview (02/05/2016): Modified per Diabetes protocol #14. ICD-10 update of inactive term Permanent atrial fibrillation 10/19/2008 documented as of this encounter (statuses as of 02/04/2025) Resolved Problems Problem Noted Date Diagnosed Date [...] as of this encounter (statuses as of 02/04/2025) Immunizations Name Administration Dates Next Due COVID-19 [...] encounter Miscellaneous Notes * Telephone Encounter - Maile Mullins RPh - 02/04/2025 12:02 PM EDT Signed Prescriptions: Disp Refills Atorvastatin Calcium 20 MG Oral Tablet (Li*100 Ta*1 Sig: Take 1 Tablet by mouth in the morning.Authorizing Provider: PASCUAL TRUONG User: MAILE MULLINS * Telephone Encounter - Maile Mullins RPh - 02/04/2025 12:02 PM EDT Provided 100 days supply with 1 refill(s) until next routine labs will approximately be drawn. Per refill protocol patient should have lipid panel on file within past year. Reviewed : AMP report CareGaps/Health Maintenance medications list for any routine labs typically ordered for this patient. Lab orders placed. Patient can complete labs with next routine lab work. Maile Herron PharmD Clinical Pharmacist [facility] [phone] 02/04/2025,12:02 PM Electronically signed by Maile Mullins [facility] at 02/04/2025 12:03 PM EDT documented in this encounter Plan of Treatment Upcoming Encounters Date Type Department Care Team (Late st Contact Info) Description 02/06/2025 8:00 AM EDT Office Visit Ophthalmology, [facility] [address] [place] [address] Brenden Ellis DO [address] [place] [address] 02/09/2025 8:00 AM EDT Anticoagulation Family Practice [facility] [address] [place] [address] [facility], Pharmacist [address] [address] 02/09/2025 8:10 AM EDT Pharmacy Family Practice [facility] [address] [place] [address] [address] College, Pharmacist [address] [address] 03/07/2025 10:15 AM EDT Imaging Radiology [facility] [address] [place] [address] 03/09/2025 8:30 AM EDT Anticoagulation Family Practice [facility] [address] [place] [facility] [address] College, Pharmacist [address] [address] 03/09/2025 8:40 AM EDT Office Visit Family Practice [address], [place] [address] [place] [address] Pascual Truong, 293 [facility] [place] [address] 08/14/2025 9:00 AM EST Imaging Radiology [facility] [address] [place] [phone] 08/31/2025 8:30 AM EST Office Visit Rheumatology [facility] [address] [place] [phone] Iván Golden CRNP [address] [place] [phone] Scheduled Orders Name Type Priority Associated Diagnoses Orde r Schedule LIPID PANEL WITH DIRECT LDL IF TG IS HIGH Lab Routine DYSLIPIDEMIA, GOAL LDL BELOW 100 Expected: 02/04/2025 (Approximate), Expires: 02/04/2026 Health Maintenance Due Date Last Done Comments [...] D LEVEL ONCE IN A LIFETIME-USE SMARTSET# [id number] Completed 09/05/2024, 11/26/2021, 08/09/2021, Additional history exists [...] mention of complication, not stated as uncontrolled DYSLIPIDEMIA, GOAL LDL BELOW 100 Other and unspecified hyperlipidemia documented in this encounter Care Teams Safety Belt Installer Relationship Specialty Start Date End Date Pascual Truong DO [address] [place] [address] PCP - General Internal Medicine 04/20/24 documented as of this encounter
--- OUTSIDE RECORDS SUMMARY | 2025-02-10 21:50 | External Medical Summary | Summary of Care ---
Author Name Unknown Organization [facility] Address [address] [place] [address] Phone [phone] Care Team Providers Care Acquisitions Logistics Analyst Name Role Phone Artemio Truong DO Primary Care Provider Reason for Visit * Reason Comments Dosage Adjustment In Person (Anticoag Cl inic) Diabetes Follow-Up Encounter Details Date Type Department Care Team (Late st Contact Info) Description 01/05/2025 8:10 AM EDT Office Visit Family Practice 65 [facility] [address] [place] [address] College, Pharmacist [address] [address] Type 2 diabetes, HbA1C goal < 8% ([facility])* Allergies No known active allergiesdocumented [...] HTN Protocol #27. 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 Patient presents for return diabetic visit. DIABETES: Current diabetic medications: Glipizide 10mg - 2 tablets in the morning and 1 tablet with dinner stopped by PCP due to diarrhea Trulicity 4.5g once weekly Medication Injection Site: Abdomen Lifestyle: Diet: unchanged Glucose Review/SMBG: Readings obtained from patient documented BG logbook Pre am 105 108 115 94 77 119 124 114 82 85 96 95 128 97 101 91 121 128 136 97 119 113 114 120 121 122 Pre AM meal Average 109 High 136 Low 77 Range 59 Count 26 Hypoglycemia: Does your blood sugar go below 70 mg/dL? No Hyperglycemia symptoms present: none Recent Labs Units 11/07/24 0000 07/12/24 0844 03/10/24 0853 HEMOGLOBIN A1C - [facility] % -- 8.1* 8.3* HEMOGLOBIN, [id number] LAB 8.1* -- -- Recent Labs Units 12/07/24 0843 09/05/24 1135 11/03/23 0905 ESTIMATED GLOMERULAR FILTRATION RATE - [facility] mL/min 66 73 79 CREATININE - [facility] mg/dL 1.1 1.0 1.0 HYPERTENSION: Patient on ACEi/ARB: yes BP Readings from Last 3 Encounters: 12/27/24 118/64 12/07/24 134/64 11/22/24 130/66 Blood pressure at goal: yes HYPERLIPIDEMIA: Recent Labs Units 11/03/23 0905 LDL CHOLESTEROL (CALCULATED) - [facility] mg/dL 62 Does patient have clinical ASCVD? No, is patient LDL less than 70mg/dL? Yes HEALTH MAINTENANCE REVIEW: Health Maintenance Due Topic Date Due Adult Wellness Visit 03/31/2015 Diabetic Eye Exam 11/23/2024 ASSESSMENT & PLAN: ICD-10-CM 1. Type 2 diabetes, HbA1C goal < 8% ([facility]) E11.9 BG Readings - Blood sugars controlled. Asked patient to test some blood sugars before dinner and/orat bedtime so we can assess sugars later in the day. Medications - Reviewed current regimen, patient is adherent to regimen. Metformin stopped due to diarrhea which has resolved. If we see a rise in sugars, can try Metformin ER but PCP wants to continue as is for now. Diet, Exercise, Lifestyle - No significant lifestyle changes since last visit. Discussed with patient. Patient is agreeable to SMBG 1 time(s) daily. Patient aware to contact clinic if any hypoglycemia before next visit. MEDICATION CHANGES: no change Diabetic Medications: Glipizide 10mg - 2 tablets in the morning and 1 tablet with dinner Trulicity 4.5g once weekly HEALTH MAINTENANCE INTERVENTIONS: Labs: Up to Date Immunizations: Up to Date Foot Exam: Up to Date Eye Exam: Up to Date Annual Wellness Visit: N/A FOLLOW UP: Return to clinic in 8 weeks with PCP and A1c I spent a total of 10-19 minutes (exact time 10g mins) on the date of service in preparation, delivery, and documentation of the care provided to Mitchel Mcpherson excluding any time spent in the performance of separately billed services. Cecy Amaya [facility] Clinical Pharmacist - Continuous Improvement Consultant Medication Therapy Management Clinic 01/05/2025, 8:30 AM documented in this encounter Plan of Treatment Upcoming Encounters Date Type Department Care Team (Late st Contact Info) Description 02/06/2025 8:00 AM EDT Office Visit Ophthalmology, [facility] [address] [place] [phone] Brenden Ellis, DO [address] [place] [address] 02/09/2025 8:00 AM EDT Anticoagulation Family Practice 65 [facility] [address] [facility] [address] College, Pharmacist [address], [place] [address] 03/07/2025 10:15 AM EDT Imaging Radiology [facility]st [facility] [address] [place] [address] 03/09/2025 8:30 AM EDT Anticoagulation Family Practice 65 [facility] [address] [place] [address] College, Pharmacist [address] [place] [address] 03/09/2025 8:40 AM EDT Office Visit Family Practice 65 [facility] [address] [place] [address] Artemio Truong, DO [address] [place] [address] 08/14/2025 9:00 AM EST Imaging Radiology [facility] [address] [place] [address] 08/31/2025 8:30 AM EST Office Visit Rheumatology [facility] [address] [place] [address] Iván Golden CRNP [address] [facility] [place] [address] Health Maintenance Due Date Last Done Comments Adult Wellness Visit 03/31/2015 03/31/2014 Diabetic Eye Exam 11/23/2024 11/23/2023, , 11/23/2023, Additional history exists COVID-19 Vaccine ( season) 2025 07/12/2024, 08/03/2023, 08/05/2022, Additional history exists HbA1c 05/07/2025 11/07/2024, 10/2023, 03/10/2024, Additional history exists Albumin/Creatinine Ratio [...] D LEVEL ONCE IN A LIFETIME-USE SMARTSET# [id number] Completed 09/05/2024, 11/26/2021, 08/09/2021, Additional history exists [...] uncontrolled documented in this encounter Care Teams Acquisitions Logistics Analyst Relationship Specialty Start Date End Date Artemio Truong DO [address] [place] [address] PCP - General Internal Medicine 04/20/24 documented as of this encounter
--- OUTSIDE RECORDS SUMMARY | 2025-02-10 21:50 | External Medical Summary | Summary of Care ---
Author Name Unknown Organization [facility] Address [address] [place] [address] Phone [phone] Care Team Providers Care Wire Roller Name Role Phone Artemio Truong DO Primary Care Provider [phone] Reason for Visit * Reason Onset Date Comments Nurse Documentation [place] to have e ars checked for wax buildup. Ear Flush 01/09/2025 Encounter Details Date Type Department Care Team (Late st Contact Info) Description 01/09/2025 11:00 AM EDT Nurse Only Family Practice [address] [phone] College, Nurse [facility] Prac [address] [address] Nurse Documentation ([place] to have ears check... Allergies No known active allergiesdocumented as of this encounter (statuses as of 01/09/2025) Medications Blood Glucose Monitoring Suppl ([employer] Mail[employer]TOUCH ULTRA 2) w/Device KITIndications:T ype 2 diabetes mellitus with hemoglobin A1c goal of less than 7.0% ([facility]) 12/16/19 19 Active acetaminophen (TYLENOL) 500 [...] of less than 7.0% ([facility]) TAKE TWO TABLETS BY MOUTH WITH [...] ications:Type 2 diabetes, HbA1C goal < 8% ([facility]) Inject 4.5 mg under the skin once a week. 2 mL 11 5 11:00 AM EDT 09/15/20 24 Active Warfarin Sodium 5 MG Oral Tablet (Coumadin)Indica tions:Chronic atrial fibrillation ([facility]) Take 1 tablet by mouth once [...] HTN Protocol #27. 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 Karen Kelly LPN documented in this encounter Nursing Notes * Karen Kelly LPN - 01/09/2025 11:03 AM EDT Patient here for [place] to have ears checked for wax buildup. States he went to have a hearing test done and was told his right ear was full of wax. Denies ear pain/discomfort. Patient ears checked by Dr. Truong and per Dr. Truong - verna to irrigate right ear. documented in this encounter Plan of Treatment Upcoming Encounters Date Type Department Care Team (Late st Contact Info) Description 02/06/2025 8:00 AM EDT Office Visit Ophthalmology, [facility] [address] [place] [address] Brenden Ellis, DO [address] [place] [address] 02/09/2025 8:00 AM EDT Anticoagulation Family Practice 65 [facility] [address] [facility] [address] College, Pharmacist [address] [address] 03/07/2025 10:15 AM EDT Imaging Radiology [facility] [address] [place] [address] 03/09/2025 8:30 AM EDT Anticoagulation Family Practice 65 [facility] [address] [place] [address] College, Pharmacist [address], [place] [address] 03/09/2025 8:40 AM EDT Office Visit Family Practice 65 [facility] [address] [place] [address] Artemio Truong, 293 [facility] [address] 08/14/2025 9:00 AM EST Imaging Radiology [facility] [address] [place] [address] 08/31/2025 8:30 AM EST Office Visit Rheumatology [facility] [address] [place] [address] Iván Golden CRNP [facility] [place] [address] Scheduled Orders Name Type Priority Associated Diagnoses Orde r Schedule REMOVAL IMPACTED CERUMEN IRRIGATION/LAVAGE, UNILAT Procedures Routine Impacted cerumen, right ear Ordered: 01/09/2025 Health Maintenance Due Date Last Done Comments [...] D LEVEL ONCE IN A LIFETIME-USE SMARTSET# [id number] Completed 09/05/2024, 11/26/2021, 08/09/2021, Additional history exists [...] as of this encounter Visit Diagnoses Diagnosis Impacted cerumen, right ear- Primary documented in this encounter Care Teams Wire Roller Relationship Specialty Start Date End Date Artemio Truong DO [address] [place] [address] PCP - General Internal Medicine 04/20/24 documented as of this encounter
--- OUTSIDE RECORDS SUMMARY | 2025-02-10 21:50 | External Medical Summary | Summary of Care ---
Author Name Unknown Organization [facility] Address [address] [place] [address] Phone [phone] Care Team Providers Care Property Management Bookkeeper Name Role Phone Artemio Truong DO Primary Care Provider [phone] Reason for Visit * Reason Comments Follow Up Encounter Details Date Type Department Care Team (Late st Contact Info) Description 12/27/2024 8:00 AM EDT Office Visit Family Practice [address] [facility] [place] [address] [place] [address] Artemio Truong DO [address] [place], [place] [phone] Diarrhea, unspecified type*; Type 2 diabetes, HbA1C goal < 8% ([facility]); HTN, goal below 140/90; DYSLIPIDEMIA, GOAL LDL BELOW 100; Permanent atrial fibrillation ([facility]); PMR (polymyalgia rheumatica) ([facility]); Steroid-induced osteoporosis Allergies No known active allergiesdocumented as of this encounter (statuses as of 12/27/2024) Medications Blood Glucose Monitoring Suppl ([employer] ULTRA 2) w/Device KITIndications: Type 2 diabetes mellitus with hemoglobin A1c goal of less than 7.0% ([facility]) 12/16/19 19 Active acetaminophen (TYLENOL) 500 MG Tablet Take 1-2 Tablets by mouth every 6 hours as needed for Pain. Active Vitamin D3 50 MCG (1999 [place]) Oral Capsule Take 1 Capsule by mouth [...] and one with dinner, Reported on 12/27/2024 DULoxetine HCl 20 MG Oral Capsule Delayed [...] dications:Type 2 diabetes, HbA1C goal < 8% ([facility]) Inject 4.5 mg under the skin once a week. 2 mL 11 5 7:36 AM EST 09/15/20 24 Active Warfarin Sodium 5 [...] 5 11:01 AM EST 12/14/19 25 Active metFORMIN HCl 1000 MG Oral Tablet (Glucophage)Ind ications:Type 2 diabetes mellitus with hemoglobin A1c goal of less than 7.0% ([facility]) TAKE ONE TABLET BY MOUTH TWICE A DAY WITH FOOD. 200 Tablet 3 5 7:25 AM EST 12/21/19 24 025 Discontin ued(Medic ation/Dos e Changed) documented as of this encounter (statuses as of 12/27/2024) Active Problems Problem Noted Date Diagnosed Date 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 Type 2 diabetes, HbA1C goal < 8% 07/26/2009 Overview (02/05/2016): Modified per Diabetes protocol #14. ICD-10 update of inactive term Permanent atrial fibrillation 10/19/2008 documented as of this encounter (statuses as of 12/27/2024) Resolved Problems Problem Noted Date Diagnosed Date [...] as of this encounter (statuses as of 12/27/2024) Immunizations Name Administration Dates Next Due COVID-19 [...] Sign Reading Time Taken Comments Blood Pressure 118/64 12/27/2024 8:03 AM EDT Pulse 66 12/27/2024 8:03 AM EDT Temperature 36.2 °C (97.1 °F) 12/27/2024 8:03 AM ED T Respiratory Rate 14 12/27/2024 8:03 AM EDT Oxygen Saturation - - Inhaled Oxygen Concentration - - Weight 79.7 kg (175 lb 12.8 oz) 12/27/2024 8:03 AM EDT Height 175.3 cm (5' 9") 12/27/2024 8:03 AM EDT Body Mass Index 25.96 12/27/2024 8:03 AM EDT documented in this encounter Progress Notes * Artemio Truong, DO - 12/27/2024 8:30 AM EDT Images from the original note were not included. Subjective Eron Mcpherson is a 79 year old male that presents for Follow Up History of Present Illness Mitchel Crawley" is an 79 year old male with type II diabetes, PMR, atrial fibrillation, hyperlipidemia, osteoporosis, and diabetic retinopathy who presents for follow up on diarrhea. He had been off metformin for almost two weeks and diarrhea has resolved. He has not resumed metformin since stopping it. He has been monitoring his blood sugar levels regularly, even without metformin, and they have beenstable. He is currently taking glipizide 10 mg, two in the morning and one in the evening, and Trulicity 4.5 mg once a week. No changes in appetite with Trulicity. No chest pain, shortness of breath, fevers, or chills. He feels tired quickly and has been trying to stay active by doing tasks for about an hour before needing to rest. He attributes some of his fatigue to the cold weather, which limits his outdoor activities. He has been consuming Boost nutritional drinks, which he feels provide him with some energy. 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 Abad Review of patient's allergies indicates: No Known Allergies Current Medications: Enalapril Maleate 10 MG Oral Tablet (Vasotec) Warfarin Sodium 5 MG Oral Tablet (Coumadin) Trulicity 4.5 MG/0.5ML Subcutaneous Solution Auto-injector (Dulaglutide) predniSONE 5 MG Oral Tablet (Deltasone) Atorvastatin Calcium 20 MG Oral Tablet (Lipitor) Alendronate Sodium 70 MG Oral Tablet (Fosamax) DULoxetine HCl 20 MG Oral Capsule Delayed Release Particles (Cymbalta) glipiZIDE 10 MG Oral Tablet (Glucotrol) Sildenafil Citrate 20 MG Oral Tablet (Revatio) Vitamin B 12 500 MCG Oral Tablet Vitamin D3 50 MCG (2000 [place]) Oral Capsule acetaminophen (TYLENOL) 500 MG Tablet Lumexis Delica Lancets 33G Lumexis Ultra Test In Vitro Strip (Glucose Blood) Probiotic & Acidophilus Ex St Oral Capsule Metoprolol Tartrate 50 MG Oral Tablet (Lopressor) Blood Glucose Monitoring Suppl ([employer]CH ULTRA 2) w/Device KIT Review of Systems Constitutional: Positive for fatigue. Negative for appetite change and unexpected weight change. HENT: Negative for congestion, sore throat and trouble swallowing. Respiratory: Negative for cough, shortness of breath and wheezing. Cardiovascular: Negative for chest pain, palpitations and leg swelling. Gastrointestinal: Negative for abdominal pain, blood in stool, constipation, diarrhea, nausea and vomiting. Genitourinary: Negative for dysuria, frequency and hematuria. Musculoskeletal: Positive for arthralgias, back pain and myalgias. Neurological: Negative for dizziness, syncope and headaches. Psychiatric/Behavioral: Negative for confusion, decreased concentration and sleep disturbance. Objective BP 118/64 | Pulse 66 | Temp 97.1 °F (36.2 °C) | Resp 14 | Ht 5' 9" (1.753 m) | Wt 175 lb 12.8 oz (79.7 kg) | BMI 25.96 kg/m² | BSA 1.97 m² Physical Exam CHEST: Clear to auscultation bilaterally. No wheezes, rhonchi, or crackles. Physical Exam Vitals and nursing note reviewed. Constitutional: General: He is not in acute distress. Appearance: Normal appearance. He is not toxic-appearing. HENT: Head: Normocephalic and atraumatic. Cardiovascular: Rate and Rhythm: Normal rate. Rhythm irregular. Pulses: Normal pulses. Heart sounds: Normal heart sounds. No murmur heard. No gallop. Pulmonary: Effort: Pulmonary effort is normal. Breath sounds: No wheezing, rhonchi or rales. Abdominal: General: [...] and Affect: Mood normal. Behavior: Behavior normal. Thought Content: Thought content normal. Results LABS Stool culture: No infectious cause Component Latest Ref Rn 12/07/2024 BUN 6 - 20 mg/dL 20 CREATININE 0.6 - 1.2 mg/dL 1.1 EGFR >=60 mL/min 66 SODIUM 135 - 146 mmol/L 139 POTASSIUM 3.5 - 5.1 mmol/L 4.5 CHLORIDE 98 - 107 mmol/L 101 CO2 22 - 32 mmol/L 25 ANION GAP 7 - 15 mmol/L 13 GLUCOSE 70 - 120 mg/dL 199 (H) Albumin 3.8 - 5.0 g/dL 3.8 AST 10 - 50 U/L 18 Alkaline Phosphatase 35 - 130 U/L 33 (L) Bilirubin, Total <=1.2 mg/dL 0.2 CALCIUM 8.4 - 10.2 mg/dL 9.3 Protein 6.0 - 8.3 g/dL 6.2 ALT 10 - 50 U/L 23 WBC 4.00 - 10.80 K/uL 10.87 (H) Neutrophils % 40.0 - 75.0 % 74.5 Lymphocytes % 18.0 - 42.0 % 13.9 (L) Monocytes % 1.0 - 11.0 % 8.9 Eosinophils % 0.0 - 6.0 % 1.7 Basophils % 0.0 - 2.0 % 0.4 Immature Granulocytes % 0.0 - 2.0 % 0.6 Absolute Neutrophils 1.80 - 7.70 K/uL 8.10 (H) Absolute Lymphocytes 1.00 - 4.80 K/ul 1.51 Absolute Monocytes 0.00 - 1.10 K/uL 0.97 Absolute Eosinophils 0.00 - 0.70 K/uL 0.19 Absolute Basophils 0.00 - 0.20 K/uL 0.04 Absolute Immature Granulocytes 0.00 - 0.20 K/uL 0.06 WBC 4.00 - 10.80 K/uL 10.87 (H) RBC 4.50 - 5.25 M/uL 4.11 HGB 14.0 - 16.8 g/dL 12.0 (L) HCT 40.0 - 48.4 % 39.0 (L) MCV 82.0 - 99.5 fL 94.9 MCH 27.0 - 34.0 pg 29.2 MCHC 32.0 - 36.0 g/dL 30.8 RDW 11.5 - 15.5 % 14.9 PLT 140 - 400 K/uL 202 MPV 6.6 - 11.1 fL 12.4 nRBCs <=0 /100 WBCs 0 Vitamin B12 232 - 1,245 pg/mL 784 Legend: (H) High (L) Low Assessment and Plan Assessment & Plan Type 2 diabetes mellitus He has been off metformin for almost two weeks due to diarrhea. Blood glucose levels have been well-managed without metformin. He is currently on glipizide and Trulicity for diabetes management. If diarrhea recurs with metformin ER, it will be discontinued. - Continue glipizide 10 mg, two tablets in the morning and one in the evening - Continue Trulicity 4.5 mg once weekly - Regularly monitor blood glucose levels - Schedule A1c test next month Diarrhea Diarrhea resolved after discontinuing metformin. Stool tests showed no infectious etiology. Physical deconditioning He reports decreased energy and stamina, feeling tired quickly, and reduced activity levels. He is starting to feel more ambitious and is engaging in some activities but rests when tired. Supervised exercise at 63 Forward is suggested to improve stamina, though he is currently managing on his own. - Encourage physical activity and consider supervised exercise program if needed Protein intake He has started drinking Boost for additional protein intake, which is beneficial as older adults tend to consume less protein. - Continue drinking Boost for protein intake Diarrhea, unspecified type (Primary) Type 2 diabetes, HbA1C goal < 8% ([facility]) HTN, goal below 140/90 Continue Enalapril DYSLIPIDEMIA, GOAL LDL BELOW 100 Continue Atorvastatin Permanent atrial fibrillation (HCC) Continue Warfarin PMR (polymyalgia rheumatica) ([facility]) Steroid-induced osteoporosis Continue Alendronate, Calcium, and vitamin D Follow Up: Return in about 2 months (around 03/09/2025), or if symptoms worsen or fail to improve. Wrap-Up Follow Up: Return in about 2 months (around 03/09/2025), or if symptoms worsen or fail to improve. Text in this note was generated using an [employer] documentation service. I discussed the use of a device to record and summarize our discussion today. All persons present during the encounter consented to its use. documented in this encounter Nursing Notes * Carol Wiggins LPN - 12/27/2024 8:02 AM EDT Here for follow up on diarrhea, is feeling some better. documented in this encounter Plan of Treatment Upcoming Encounters Date Type Department Care Team (Late st Contact Info) Description 01/05/2025 8:00 AM EDT Anticoagulation Family Practice 65 [facility] [address] [place] [address] College, Pharmacist [address] [place] [address] 02/06/2025 8:00 AM EDT Office Visit Ophthalmology, [facility] [address] [place] [address] Brenden Ellis DO [address] [place] [address] 03/07/2025 10:15 AM EDT Imaging Radiology [address] [place] [id number] 03/09/2025 8:40 AM EDT Office Visit Family Practice 65 [facility] [address] [place] [address] Artemio Truong DO [address] [facility] [place] [address] 08/14/2025 9:00 AM EST Imaging Radiology [facility] [address] [place] [phone] 08/31/2025 8:30 AM EST Office Visit Rheumatology [facility] [address] [place] [phone] Iván Golden CRNP [address] [facility] [place] [address] Health Maintenance Due Date Last Done Comments [...] D LEVEL ONCE IN A LIFETIME-USE SMARTSET# [id number] Completed 09/05/2024, 11/26/2021, 08/09/2021, Additional history exists [...] as of this encounter Visit Diagnoses Diagnosis Diarrhea, unspecified type- Primary Type 2 diabetes, HbA1C goal < 8% (HCC) Type II or unspecified type diabetes mellitus without mention of complication, not stated as uncontrolled HTN, goal below 140/90 Unspecified essential hypertension DYSLIPIDEMIA, GOAL LDL BELOW 100 Other and unspecified hyperlipidemia Permanent atrial fibrillation (HCC) Atrial fibrillation PMR (polymyalgia rheumatica) (HCC) Polymyalgia rheumatica Steroid-induced osteoporosis Other osteoporosis documented in this encounter Care Teams Property Management Bookkeeper Relationship Specialty Start Date End Date Artemio Truong DO [address] [place] [address] PCP - General Internal Medicine 04/20/24 documented as of this encounter
--- OUTSIDE RECORDS SUMMARY | 2025-02-10 21:50 | External Medical Summary | Summary of Care ---
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 2 mL 5 8:05 AM EDT 09/15/20 24 Active [...] morning. 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 Type 2 diabetes, HbA1C goal < 8% 07/26/2009 Overview (02/05/2016): Modified per Diabetes protocol #14. ICD-10 update of inactive term Permanent atrial fibrillation 10/19/2008 documented as of this encounter (statuses as of 02/06/2025) Resolved Problems Problem Noted Date Diagnosed Date [...] as of this encounter (statuses as of 02/06/2025) Immunizations Name Administration Dates Next Due COVID-19 [...] encounter Progress Notes * Brenden Ellis, - 02/06/2025 8:00 AM EDT [facility] [place] Nursing Notes: Brenden Caro TECH 02/06/25 0815 Signed Mitchel Mcpherson is a 79 year old year old male who presents for Mod NPDR OU. Last Office Visit: Visit date not found (in office), Visit date not found (telemedicine) Patient currently states no change in vision. Are you diabetic? Yes. Do you check your blood sugars daily? NO. Last Hemoglobin A1C: Lab Results Component Value Date/Time HGBA1C 8.1 (H) 11/07/2024 12:00 AM HGBA1C 8.1 (H) 07/12/2024 08:44 AM [...] (Snellen - Linear) Right Left Dist cc 20/20 -1 20/30 Correction: Glasses Tonometry (Tonopen, 8:13 AM) Right Left Pressure 19 18 Pupils Pupils Dark Light Shape React APD Right PERRL 3.5 3 Round Slow None Left PERRL 4 3.5 Round Sluggish None Visual Lopez (Counting fingers) Right Left Full Full Extraocular Movement Right Left Full Full Neuro/Psych Oriented x3: Yes Mood/Affect: Normal Dilation Both eyes: 0.5% Proparacaine @ 8:13 AM Dilation #2 Both eyes: 1.0% Mydriacyl, 2.5% Phenylephrine @ 8:15 AM Dilation Comments Patient cautioned that effects [...] 1.5 DA flat nevus IT macula, trace telemarketing agent vessels: wnl periphery: telemarketing agent, no RT/RD Dilated fundus exam OS: vitreous: clear optic nerve: 0.35, no edema/pallor/NVD macula: telemarketing agent vessels: wnl periphery: telemarketing agent, no RT/RD OCT Interpretation: OD: no irf/srf, [...] documented in this encounter Nursing Notes * Brenden Caro TECH - 02/06/2025 8:09 AM EDT Mitchel Mcpherson is a 79 year old year old male who presents for Mod NPDR OU. Last Office Visit: Visit date not found (in office), Visit date not found (telemedicine) Patient currently states no change in vision. Are you diabetic? Yes. Do you check your blood sugars daily? NO. Last Hemoglobin A1C: Lab Results Component Value Date/Time HGBA1C 8.1 (H) 11/07/2024 12:00 AM HGBA1C 8.1 (H) 07/12/2024 08:44 AM [...] 8:00 AM EDT Anticoagulation Family Practice 65 [facility] [address] [facility] [address] College, Pharmacist [address] [address] 02/09/2025 8:10 AM EDT Pharmacy Family Practice [address] [facility] [address] [facility] [address] College, Pharmacist [address] [address] 03/07/2025 10:15 AM EDT Imaging Radiology [facility] [facility] [place] [address] [place] [phone] 03/09/2025 8:30 AM EDT Anticoagulation Family Practice [address] [place] [address] College, Pharmacist 65 [facility] [address] [facility] [address] 03/09/2025 8:40 AM EDT Office Visit Family Practice 65 [facility] [address] [facility] [place] [address] Artemio Truong, [address] [facility], [place] [address] 08/08/2025 8:00 AM EDT Office Visit Ophthalmology, [facility] [address] [place] [phone] Brenden Ellis, DO [address] [place] [address] 08/14/2025 9:00 AM EST Imaging Radiology [facility] [address] [place] [phone] 08/31/2025 8:30 AM EST Office Visit Rheumatology [facility] [address] [place] [phone] Iván Golden CRNP [address] [place] [phone] Scheduled Orders Name Type Priority Associated Diagnoses Orde r Schedule RETINA SCAN DIAGNOSTIC IMAGE, POSTERIOR Procedures Routine NPDR with macular edema (HCC) Ordered: 02/06/2025 Health Maintenance Due Date Last Done Comments [...] D LEVEL ONCE IN A LIFETIME-USE SMARTSET# [id number] Completed 09/05/2024, 11/26/2021, 08/09/2021, Additional history exists [...] (HCC)- Primary NPDR with macular edema (HCC) Nevus of choroid of right eye documented in this encounter Care Teams Plant Operator Relationship Specialty Start Date End Date Artemio Truong DO [address] [place] [address] PCP - General Internal Medicine 04/20/24 documented as of this encounter
--- OUTSIDE RECORDS SUMMARY | 2025-02-10 21:50 | External Medical Summary ---
Author Name Unknown Address Unknown Organization : Laboratory Report Ordering Provider Test Date Status ROBSON GARDNER 02/09/2025 08:06:56 Final Therapeutic ranges for non-o perative patients:
Prophylaxsis/treatment of DVT: (Range:2.0-3.0)
Treatment of pulmonary embolism:(Range:2.0-3.0)
Prevention of systemic embolism from:
-tissue heart valves
-acute myocardial infarction
-valvular heart disease
-atrial fibrillation
(Range: 2.0-3.0)
Mechanical prosthetic valves: (Range: 2.5-3.5) Observation Date Value Abnormality Reference (Units ) Status INR in Capillary blood by Coagulation assay 02/09/2025 08:06:56 2.8 (INR) Final Performing Location
--- OUTSIDE RECORDS SUMMARY | 2025-02-10 21:50 | External Medical Summary | Summary of Care ---
Author Name Unknown Organization [facility] Address [address] [place] [address] Phone [phone] Care Team Providers Care Dispatch Clerk Name Role Phone Pascual Truong DO Primary Care Provider [phone] Reason for Visit * Reason Comments Medication Refill Encounter Details Date Type Department Care Team (Late st Contact Info) Description 12/28/2024 Refill Family Practice [address], [place] [address] [place] [address] Pascual Truong DO [address] [place] [address] Polymyalgia rheumatica (HCC) Allergies No known active allergiesdocumented as of this encounter (statuses as of 12/28/2024) Medications Blood Glucose Monitoring Suppl (ONETOUCH ULTRA [...] MG Oral Tablet (Coumadin)Indic ations:Chronic atrial fibrillation ([facility]) Take 1 tablet by mouth once [...] CUT, CRUSH, OR CHEW. 100 Capsule 3 12/29/19 25 Active DULoxetine HCl 20 MG Oral Capsule Delayed Release Particles (Cymbalta)Indic ations:Polymyal kyle rheumatica (HCC) TAKE ONE CAPSULE BY MOUTH EVERY DAY. DO NOT CUT, CRUSH, OR CHEW. 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 PMR (polymyalgia rheumatica) 01/10/2011 [facility] current use of systemic steroids 01/10 terminal [...] as of this encounter (statuses as of 12/28/2024) Resolved Problems Problem Noted Date Diagnosed Date [...] as of this encounter (statuses as of 12/28/2024) Immunizations Name Administration Dates Next Due COVID-19 [...] Miscellaneous Notes * Telephone Encounter - Scotty Grady RPh - 12/28/2024 3:27 PM EDTSigned Prescriptions: Disp Refills DULoxetine HCl 20 MG Oral Capsule Delayed *100 Ca*3 Sig: TAKE ONE CAPSULE BY MOUTH EVERY DAY. DO NOT CUT, CRUSH, OR CHEW.Authorizing Provider: PASCUAL TRUONG User: SCOTTY GRADY documented in this encounter Plan of Treatment Upcoming Encounters Date Type Department Care Team (Late st Contact Info) Description 01/05/2025 8:00 AM EDT Anticoagulation Family Practice [address] [place] 293 [facility] [place] [address] College, Pharmacist 65 [facility] 293 [place] [address] 02/06/2025 8:00 AM EDT Office Visit Ophthalmology, [facility] 132 [facility] [place] [address] Brenden Ellis, DO 132 [facility] [place] [address] 03/07/2025 10:15 AM EDT Imaging Radiology [facility] 1st [facility] [address] [place] [address] 03/09/2025 8:40 AM EDT Office Visit Family Practice 65 [facility] 293 [facility] [address] Pascual Truong, DO 293 [facility] [address] 08/14/2025 9:00 AM EST Imaging Radiology [facility] 132 [facility] [place] [address] 08/31/2025 8:30 AM EST Office Visit Rheumatology [facility] 132 [facility] [place] [address] Iván Golden CRNP [address] [facility] [place] [address] Health Maintenance Due Date Last Done Comments [...] D LEVEL ONCE IN A LIFETIME-USE SMARTSET# [id number] Completed 09/05/2024, 11/26/2021, 08/09/2021, Additional history exists [...] rheumatica documented in this encounter Care Teams Dispatch Clerk Relationship Specialty Start Date End Date Pascual Truong DO [address] [place] [address] PCP - General Internal Medicine 04/20/24 documented as of this encounter
--- OUTSIDE RECORDS SUMMARY | 2025-02-10 21:51 | External Medical Summary ---
Author Name Unknown Address Unknown Organization [id number]:[facility] [place] [address] [place] [address] Laboratory Report Ordering Provider Test Date Status JANEL GARNER 12/20/2024 10:28:08 Final Observation Date Value Abnormality Reference (Units) Status Source 12/20/2024 10:28:08 Liquid Final Clostridioides difficile toxin and [id number] strain DNA panel - Stool by RYAN with probe detection 12/20/2024 10:28:08 Negative. No C. difficile toxin B gene DNA detected by PCR (Amplified Probe). Negative Final Performing Location [facility] [place] - [address] [place] [address]
--- OUTSIDE RECORDS SUMMARY | 2025-02-10 21:51 | External Medical Summary | Summary of Care ---
Author Name Unknown Organization [facility] Address [address] [place] [address] Phone [phone] Care Team Providers Care Bobbin Loose End Finder Name Role Phone Pascual Truong DO Primary Care Provider [phone] Reason for Visit * Reason Onset Date Comments Diarrhea 12/19/2024 Encounter Details Date Type Department Care Team (Late st Contact Info) Description 12/19/2024 Telephone Family Practice [address] [place] [address] [place] [address] Pascual Truong DO 293 [place] [address] Diarrhea Allergies No known active allergiesdocumented as of this encounter (statuses as of 12/19/2024) Medications Blood Glucose Monitoring Suppl (Advanced Cyclone SystemsTOUCH ULTRA 2) w/Device KITIndications:T ype 2 diabetes mellitus with hemoglobin A1c goal of less than 7.0% ([facility]) 12/16/19 19 Active acetaminophen (TYLENOL) [...] mouth every evening. (Gummy) 11/04/19 24 Active metFORMIN HCl 1000 MG Oral Tablet (Glucophage)Loyda cations:Type 2 diabetes mellitus with hemoglobin A1c goal of less than 7.0% (HCC) TAKE ONE TABLET BY MOUTH TWICE A DAY WITH FOOD. 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 Type 2 diabetes, HbA1C goal < 8% 07/26/2009 Overview (02/05/2016): Modified per Diabetes protocol #14. ICD-10 update of inactive term Permanent atrial fibrillation 10/19/2008 documented as of this encounter (statuses as of 12/19/2024) Resolved Problems Problem Noted Date Diagnosed Date [...] as of this encounter (statuses as of 12/19/2024) Immunizations Name Administration Dates Next Due COVID-19 [...] Valent (Prevnar) 03/03/2016 Pneumococcal Polysaccharide PPV23 (Pneumovax) 01/03/2009,09/01/2003 RSV Vac., Bivalent, Perfusio n F, Pf,0.5 Ml (Abrysvo) 08/17/2023 Season Influenza, Quad, PF, Adjuvanted, 65+ Yrs, IM (FLUAD) 07/19/2020 Seasonal Influenza Vac., MDV , IM, 0.5 mL (Fluzone) 08/21/2014,07/14/2013,10/07/2012,06/13,07/19/2010,09/03/2009,08/15/20 08,08/19/2007,09/11/2006,08/27/2005,1 ,08/23/2002,09/28/2001,10/1410/15/2001 Seasonal Influenza, High Dos e, Trivalent, PF, IM (Fluzone HD) 06/24/2024 Seasonal Influenza, PF, 6 M & above, IM , (FluLaval or Fluzone) 07/27/2018,08/17/2017 Seasonal Influenza, Quadriva lent Hd (Fluzone Hd) 06/23/2023,07/11/2022,06/20/2021 Seasonal Influenza, Quadriva lent, No Preserve, IM 07/27/2016,08/20/2015 Seasonal Influenza, Trivalen t, Adjuvanted, 65+ YRS, PF, (Fluad) 09/02/2019 TD - Tetanus/Diptheria (ADULT) 01/29/2001 TDAP (age 10 and older)(Boostrix) 07/23/2022,06/2012 Zoster [...] 11/18/2024 Does the household have a re lar [...] encounter Miscellaneous Notes * Telephone Encounter - Renetta Monroe CCMA - 12/19/2024 2:17 PM EDT Spoke with patient - he will be coming in tomorrow morning for labs and and stool cup. Please placeorders. * Addendum Note - Pascual Truong DO - 12/19/2024 2:01 PM EDTAddended by: PASCUAL TRUONG on: 12/19/2024 02:01 PM Modules accepted: Orders * Telephone Encounter - Pascual Truong DO - 12/19/2024 1:59 PM EDT Check stool pathogen panel and stool for c. Diff. Start OTC Lomotil 2 mg three times a day as needed. Schedule visit. Hold Metformin See if glucose has been elevated. * Telephone Encounter - Renetta Monroe CCMA - 12/19/2024 9:45 AM EDT Pt called in - States that he has diarrhea for about 5-6 days. Has not taken anything OTC. Denies any nausea, vomiting, fevers, body aches chills. Please advise. documented in this encounter Plan of Treatment Upcoming Encounters Date Type Department Care Team (Late st Contact Info) Description 12/27/2024 8:00 AM EDT Office Visit Family Practice [address] [place] [address] 293 [place] [address] Pascual Truong, 293 [place] [address] 01/05/2025 8:00 AM EDT Anticoagulation Family Practice 65 [facility] 293 [place] [address] College, Pharmacist [address] [place] [address] 02/06/2025 8:00 AM EDT Office Visit Ophthalmology, [facility] 132 [facility] [place] [address] Brenden Ellis, [address] [place] [address] 03/07/2025 10:15 AM EDT Imaging Radiology [facility] 1st Floor, [place] [address] [place] [address] 03/09/2025 8:40 AM EDT Office Visit Family Practice [address], [place] 293 [facility] [address] Pascual Truong, 293 [facility], [place] [address] 08/14/2025 9:00 AM EST Imaging Radiology [facility] [address] [place] [address] 08/31/2025 8:30 AM EST Office Visit Rheumatology [facility] [address] [place] [address] Iván Golden CRNP [address] [facility] [address] Scheduled Orders Name Type Priority Associated Diagnoses Orde r Schedule CLOSTRIDIUM DIFFICILE, PCR Lab Routine Diarrhea, unspecified type Expected: 12/19/2024 (Approximate), Expires: 12/19/2025 GASTROINTESTINAL PATHOGEN PANEL, STOOL Lab Routine Diarrhea, unspecified type Expected: 12/19/2024 (Approximate), Expires: 12/19/2025 Health Maintenance Due Date Last Done Comments [...] D LEVEL ONCE IN A LIFETIME-USE SMARTSET# [id number] Completed 09/05/2024, 11/26/2021, 08/09/2021, Additional history exists [...] Visit Diagnoses Diagnosis Diarrhea, unspecified type- Primary documented in this encounter Care Teams Bobbin Loose End Finder Relationship Specialty Start Date End Date Pascual Truong DO [address] [facility] [place] [address] PCP - General Internal Medicine 04/20/24 documented as of this encounter
--- OUTSIDE RECORDS SUMMARY | 2025-02-10 21:51 | External Medical Summary | Summary of Care ---
Author Name Unknown Organization [facility] Address [address] [place] [address] Phone [phone] Care Team Providers Care Hospice/Home Health Aide Name Role Phone Pascual Truong DO Primary Care Provider [phone] Reason for Visit * Reason Onset Date Comments Diarrhea 12/19/2024 Encounter Details Date Type Department Care Team (Late st Contact Info) Description 12/19/2024 Telephone Family Practice [address], [place] 293 [place] [address] Pascual Truong DO 293 [place] [address] Diarrhea Allergies No known active allergiesdocumented as of this encounter (statuses as of 12/20/2024) Medications Blood Glucose Monitoring Suppl (MegadyneTOUCH ULTRA 2) w/Device KITIndications:T ype 2 diabetes mellitus with hemoglobin A1c goal of less than 7.0% ([facility]) 12/16/19 19 Active acetaminophen (TYLENOL) 500 [...] as of this encounter (statuses as of 12/20/2024) Active Problems Problem Noted Date Diagnosed Date [...] [facility] current use of systemic 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 Type 2 diabetes, HbA1C goal < 8% 07/26/2009 Overview (02/05/2016): Modified per Diabetes protocol #14. ICD-10 update of inactive term Permanent atrial fibrillation 10/19/2008 documented as of this encounter (statuses as of 12/20/2024) Resolved Problems Problem Noted Date Diagnosed Date [...] as of this encounter (statuses as of 12/20/2024) Immunizations Name Administration Dates Next Due COVID-19 [...] AM EDT Office Visit Family Practice [address] [place] [address] 293 [facility] [address] Pascual Truong, 293 [place] [place] [address] 01/05/2025 8:00 AM EDT Anticoagulation Family Practice 65 [facility] 293 [facility] [address] College, Pharmacist [address] [place] [address] 02/06/2025 8:00 AM EDT Office Visit Ophthalmology, [facility] 132 [facility] [place] [address] Brenden Ellis, [address] [place] [address] 03/07/2025 10:15 AM EDT Imaging Radiology [facility] 1st Floor, [place] [address] [place] [address] 03/09/2025 8:40 AM EDT Office Visit Family Practice [address], [place] 293 [facility] [address] Pascual Truong, 293 [facility] [address] 08/14/2025 9:00 AM EST Imaging Radiology [facility] [address] [place] [address] 08/31/2025 8:30 AM EST Office Visit Rheumatology [facility] [address] [place] [address] Iván Goledn CRNP [address] [facility] [address] Scheduled Orders Name Type Priority Associated Diagnoses [...] D LEVEL ONCE IN A LIFETIME-USE SMARTSET# [id number] Completed 09/05/2024, 11/26/2021, 08/09/2021, Additional history exists [...] Primary documented in this encounter Care Teams Hospice/Home Health Aide Relationship Specialty Start Date End Date Pascual Truong DO [address] [place] [address] PCP - General Internal Medicine 04/20/24 documented as of this encounter
--- OUTSIDE RECORDS SUMMARY | 2025-02-10 21:51 | External Medical Summary | Summary of Care ---
Author Name Unknown Organization [facility] Address [address] [place] [address] Phone [phone] Care Team Providers Care Technology Coach Name Role Phone Pascual Truong DO Primary Care Provider [phone] Reason for Visit * Reason Onset Date Comments Diarrhea 12/19/2024 Encounter Details Date Type Department Care Team (Late st Contact Info) Description 12/19/2024 Telephone Family Practice [address], [place] 293 [place] [address] Pascual Truong DO 293 [place] [address] Diarrhea Allergies No known active allergiesdocumented as of this encounter (statuses as of 12/19/2024) Medications Blood Glucose Monitoring Suppl (Sun-Lite MetalsTOUCH ULTRA 2) w/Device KITIndications:T ype 2 diabetes mellitus with hemoglobin A1c goal of less than 7.0% ([facility]) 12/16/19 19 Active acetaminophen (TYLENOL) [...] HTN Protocol #27. 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 0 11/27/2010 [...] 8:00 AM EDT Office Visit Family Practice [address] [place] [address] 293 [place] [address] Pascual Truong, 293 [place] [address] 01/05/2025 8:00 AM EDT Anticoagulation Family Practice 65 [facility] 293 [place] [address] College, Pharmacist [address] [place] [address] 02/06/2025 8:00 AM EDT Office Visit Ophthalmology, [facility] 132 [facility] [place] [address] Brenden Ellis, [address] [place] [address] 03/07/2025 10:15 AM EDT Imaging Radiology [facility] 1st Floor, [place] [address] [place] [address] 03/09/2025 8:40 AM EDT Office Visit Family Practice [address], [place] 293 [facility] [address] Pascual Truong, 293 [facility], [place] [address] 08/14/2025 9:00 AM EST Imaging Radiology [facility] [address] [place] [address] 08/31/2025 8:30 AM EST Office Visit Rheumatology [facility] [address] [place] [address] Iván Golden CRNP [address] [facility], [place] [address] Scheduled Orders Name Type Priority Associated Diagnoses [...] D LEVEL ONCE IN A LIFETIME-USE SMARTSET# [id number] Completed 09/05/2024, 11/26/2021, 08/09/2021, Additional history exists [...] Primary documented in this encounter Care Teams Technology Coach Relationship Specialty Start Date End Date Pascual Truong DO [address] [place] [place] [address] PCP - General Internal Medicine 04/20/24 documented as of this encounter
--- OUTSIDE RECORDS SUMMARY | 2025-02-10 21:51 | External Medical Summary ---
Author Name Unknown Address Unknown Organization K01:[facility] [place] [address] [facility] [address] Laboratory Report Ordering Provider Test Date Status JANEL GARNER 12/20/2024 10:27:54 Final Observation Date Value Abnormality Reference (Units ) Status Campylobacter sp DNA.diarrheagenic [Presence] in Stool by RYAN with probe detection 12/20/2024 10:27:54 Negative Negative Final Salmonella sp rpoD gene [Presence] in Stool by RYAN with probe detection 12/20/2024 10:27:54 Negative Negative Final Shigella species+EIEC invasion plasmid antigen H ipaH gene [Presence] in Stool by RYAN with probe detection 12/20/2024 10:27:54 Negative Negative Final Vibrio sp DNA [Identifier] in Specimen by RYAN with probe detection 12/20/2024 10:27:54 Negative Negative Final Yersinia enterocolitica recN gene [Presence] in Stool by RYAN with probe detection 12/20/2024 10:27:54 Negative Negative Final Escherichia coli Stx1 toxin stx1 gene [Presence] in Stool by RYAN with probe detection 12/20/2024 10:27:54 Negative Negative Final Escherichia coli Stx2 toxin stx2 gene [Presence] in Stool by RYAN with probe detection 12/20/2024 10:27:54 Negative Negative Final Norovirus genogroups I and II RNA panel - Stool by RYAN with probe detection 12/20/2024 10:27:54 Negative Negative Final Rotavirus A RNA [Presence] in Stool by RYAN with probe detection 12/20/2024 10:27:54 Negative Negative Final Performing Location [facility] [place] [address] [facility] [address] [facility] [address]
--- OUTSIDE RECORDS SUMMARY | 2025-02-10 21:51 | External Medical Summary | Summary of Care ---
Author Name Unknown Organization [facility] Address [address] [place] [address] Phone [phone] Care Team Providers Care Launchman Name Role Phone Pascual Truong DO Primary Care Provider [phone] Reason for Visit * Reason Onset Date Comments Diarrhea 12/19/2024 Encounter Details Date Type Department Care Team (Late st Contact Info) Description 12/19/2024 Telephone Family Practice [address], [place] 293 [place] [address] Pascual Truong DO 293 [place] [address] Diarrhea Allergies No known active allergiesdocumented as of this encounter (statuses as of 12/21/2024) Medications Blood Glucose Monitoring Suppl (GojimoTOUCH ULTRA 2) w/Device KITIndications:T ype 2 diabetes mellitus with hemoglobin A1c goal of less than 7.0% ([facility]) 12/16/19 19 Active acetaminophen (TYLENOL) 500 MG [...] as of this encounter (statuses as of 12/21/2024) Active Problems Problem Noted Date Diagnosed Date 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 Type 2 diabetes, HbA1C goal < 8% 07/26/2009 Overview (02/05/2016): Modified per Diabetes protocol #14. ICD-10 update of inactive term Permanent atrial fibrillation 10/19/2008 documented as of this encounter (statuses as of 12/21/2024) Resolved Problems Problem Noted Date Diagnosed Date [...] as of this encounter (statuses as of 12/21/2024) Immunizations Name Administration Dates Next Due COVID-19 [...] encounter Miscellaneous Notes * Telephone Encounter - Lily Coelho LPN - 12/20/2024 3:56 PM EDT Pt seen today for lab visit. * Telephone Encounter - Renetta Monroe CCMA [...] AM EDT Office Visit Family Practice 65 [facility] 293 [place] [address] Pascual Tru[facility] DO [address] [facility] [address] 01/05/2025 8:00 AM EDT Anticoagulation Family Practice 65 [facility] 293 [facility] [phone] College, Pharmacist [address] [address] 02/06/2025 8:00 AM EDT Office Visit Ophthalmology, [facility] 132 [facility] [place] [address] Brenden Ellis, DO [address] [place] [address] 03/07/2025 10:15 AM EDT Imaging Rad[facility] [address] [place] [address] 03/09/2025 8:40 AM EDT Office Visit Family Practice [address], [place] 293 [place] [address] Pascual Truong, DO 293 [facility] [address] 08/14/2025 9:00 AM EST Imaging Radiology [facility] [address] [place] [address] 08/31/2025 8:30 AM EST Office Visit Rheumatology [facility] [address] [place] [address] Iván Golden CRNP [facility] [address] Pending Results Name Type Priority Associated Diagnoses Date /Time GASTROINTESTINAL PATHOGEN PANEL, STOOL Lab Routine Diarrhea, unspecified type 12/20/2024 10:27 AM EDT Scheduled Orders Name Type Priority Associated Diagnoses Orde r Schedule GASTROINTESTINAL PATHOGEN PANEL, STOOL Lab Routine Diarrhea, [...] D LEVEL ONCE IN A LIFETIME-USE SMARTSET# [id number] Completed 09/05/2024, 11/26/2021, 08/09/2021, Additional history exists [...] Not on filedocumented as of this encounter Results * CLOSTRIDIUM DIFFICILE, PCR (12/20/2024 10:28 AM EDT) Stool Consistency Liquid 12/21/2024 12:00 AM EDT [facility] Clostridium difficile Result Negative. No C. difficile toxin B gene DNA detected by PCR (Amplified Probe). Negative 12/21/2024 12:00 AM EDT [facility] Stool Stool specimen / Unknown Non-blood Collection / Unknown 12/20/2024 10:28 AM EDT 12/20/2024 10:28 AM EDT Pascual Truong DO LAB MICRO - GENERAL ORDERABLES Final Result LABORATORY C [address] [place] [address] documented in this encounter Visit Diagnoses Diagnosis Diarrhea, unspecified type- Primary documented in this encounter Additional Health Concerns Infection Onset Date Last Indicated Resolved Time Gastrointestinal Rule-Out 12/20/2024 12/20/2024 C. difficile Rule-Out 12/20/2024 12/20/20242024 12:00 AM EDT documented as of this encounter Care Teams Launchman Relationship Specialty Start Date End Date Pascual Truong DO [address] [place] [address] PCP - General Internal Medicine 04/20/24 documented as of this encounter
--- OUTSIDE RECORDS SUMMARY | 2025-02-10 21:51 | External Medical Summary | Summary of Care ---
Author Name Unknown Organization [facility] Address [address] [place] [address] Phone [phone] Care Team Providers Care Iron Miner Blasting Name Role Phone Pascual Truong DO Primary Care Provider [phone] Reason for Visit * Reason Comments Medication Refill Encounter Details Date Type Department Care Team (Late st Contact Info) Description 12/12/2024 Refill Family Practice [address] [place] [address] [place] [address] Pascual Truong DO [address] [place] [address] Allergies No known active allergiesdocumented as of this encounter (statuses as of 12/13/2024) Medications Blood Glucose Monitoring Suppl (ONETOUCH ULTRA 2) w/Device KITIndications: Type 2 diabetes mellitus with hemoglobin A1c goal of less than 7.0% ([facility]) 12/16/19 19 Active acetaminophen (TYLENOL) 500 MG Tablet Take 1-2 Tablets by mouth every 6 hours as needed for Pain. Active Vitamin D3 50 MCG (1999 [place]) Oral Capsule Take 1 Capsule by mouth every evening. (Gummy) 30 Cap 5 08/11/20 21 Active OneTouch Ultra Blue In Vitro Strip (Glucose Blood)Indicatio ns:Type 2 diabetes mellitus with hemoglobin A1c goal of less than 7.0% ([facility]) Use to test once daily. DX:E11.9 [...] than 7.0% ([facility]) TAKE ONE TABLET BY MOUTH TWICE A [...] than 7.0% ([facility]) TAKE TWO TABLETS BY MOUTH WITH BREAKFAST, ONE TABLET WITH LUNCH AND ONE TABLET WITH DINNER 360 Tablet 3 5 7:25 AM EST 03/18/20 24 025 Active Additional Information Patient taking differently: 10 mg, Two in the morning and one with dinner, Reported on 12/07/2024 DULoxetine HCl 20 MG Oral Capsule Delayed Release Particles (Cymbalta)Indic ations:Polymyal kyle rheumatica ([facility]) TAKE ONE CAPSULE BY MOUTH EVERY DAY. 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 Type 2 diabetes, HbA1C goal < 8% 07/26/2009 Overview (02/05/2016): Modified per Diabetes protocol #14. ICD-10 update of inactive term Permanent atrial fibrillation 10/19/2008 documented as of this encounter (statuses as of 12/13/2024) Resolved Problems Problem Noted Date Diagnosed Date [...] as of this encounter (statuses as of 12/13/2024) Immunizations Name Administration Dates Next Due COVID-19 [...] encounter Miscellaneous Notes * Telephone Encounter - Genia Quigley RPh - 12/12/2024 5:30 PM EST Signed Prescriptions: Disp Refills Enalapril Maleate 10 MG Oral Tablet (Vasot*100 Ta*0 Sig: TAKE ONE TABLET BY MOUTH EVERY MORNINGAuthorizing Provider: PASCUAL TRUONG User: MICHELLE QUIGLEY documented in this encounter Plan of Treatment Upcoming Encounters Date Type Department Care Team (Late st Contact Info) Description 01/05/2025 8:00 AM EDT Anticoagulation Family Practice 65 [facility] 293 [facility], [place] [address] Brian, Pharmacist [address], [place] [address] 02/06/2025 8:00 AM EDT Office Visit Ophthalmology, [facility] [address] [place] [address] Brenden Ellis, DO [address] [place] [address] 03/07/2025 10:15 AM EDT Imaging [facility]iology [facility] [address] [place] [phone] 03/09/2025 8:40 AM EDT Office Visit Family Practice 65 [facility] [address] Pascual Truong, DO 293 [facility], [place] [address] 08/14/2025 9:00 AM EST Imaging Radiology [facility] [address] [place] [address] 08/31/2025 8:30 AM EST Office Visit Rheumatology [facility] [address] [place] [address] Iván Golden CRNP [address] [facility], [place] [address] Health Maintenance Due Date Last Done Comments [...] D LEVEL ONCE IN A LIFETIME-USE SMARTSET# [id number] Completed 09/05/2024, 11/26/2021, 08/09/2021, Additional history exists [...] filedocumented as of this encounter Care Teams Iron Miner Blasting Relationship Specialty Start Date End Date Pascual Truong DO [address] [address] PCP - General Internal Medicine 04/20/24 documented as of this encounter
--- OUTSIDE RECORDS SUMMARY | 2025-02-10 21:51 | External Medical Summary | Summary of Care ---
Author Name Unknown Organization [facility] Address [address] [place] [address] Phone [phone] Care Team Providers Care Kiln Firer Helper Name Role Phone Pascual Truong DO Primary Care Provider [phone] Reason for Visit * Reason Onset Date Comments Medication Refill 12/12/2024 Encounter Details Date Type Department Care Team (Late st Contact Info) Description 12/12/2024 Refill Family Practice [address], [place] [address] [place] [address] Pascual Truong DO [address] [place] [address] Allergies No known active allergiesdocumented as of this encounter (statuses as of 12/13/2024) Medications Blood Glucose Monitoring Suppl (ONETOUCH ULTRA 2) w/Device KITIndications: Type 2 diabetes mellitus with hemoglobin A1c goal of less than 7.0% ([facility]) 12/16/19 19 Active acetaminophen (TYLENOL) 500 MG [...] A1c goal of less than 7.0% ([facility]) TAKE TWO TABLETS BY MOUTH WITH BREAKFAST, [...] dications:Type 2 diabetes, HbA1C goal < 8% ([facility]) Inject 4.5 mg under the skin once [...] mouth in the morning. 11/16/19 25 Active OneTouch Delica Lancets 33G Use to test once daily. DX: E11.9 100 Each 3 12/14/19 25 Active OneTouch Ultra Test In Vitro Strip (Glucose Blood) Use to test once daily. DX:E11.9, 100 Strip 3 12/14/19 25 Active OneTouch Ultra Blue In Vitro Strip (Glucose Blood)Indicatio ns:Type 2 diabetes mellitus with hemoglobin A1c goal of less than 7.0% ([facility]) Use to test once daily. DX:E11.9 100 Strip 3 07/28/20 22 025 Discontin ued(Refil l) OneTouch Delica Lancets 33G Use to test once daily. DX: E11.9 100 Each 3 07/28/20 22 025 Discontin ued(Refil l) documented as of [...] HTN Protocol #27. 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 DX: E11.9Authorizing Provider: PASCUAL TRUOGN User: AFSHIN PENA OneTouch Ultra Test In Vitro Strip (Glucos*100 St*3 Sig: Use to test once daily. DX:E11.9,Authorizing Provider: PASCUAL TRUONG User: AFSHIN PENA * Telephone Encounter - Christina Alvarez CPhT - 12/12/2024 9:36 AM EST Did you pend patient's preferred pharmacy and medication before forwarding?yes Pharmacy: [facility] Pending Prescriptions: Disp Refills OneTouch Delica Lancets 33G 100 Ea*3 Sig: Use to test once daily. DX: E11.9 OneTouch Ultra Test In Vitro Strip (Gluco*100 St*3 Sig: Use to test once daily. DX:E11.9, Last Visit: 12/07/2024 (in office), Visit date not found (telemedicine) Next Visit: 01/05/2025 If no future appointments scheduled, and last appointment is greater than a year ago, please schedule patient for a follow-up appointment Last date the medication was ordered: [id number] Is this request for a controlled substance?no Urine Drug Screen:No results found. However, due to the size of the patient record, not all encounters were searched. Please check Results Review for a complete set of results. Patient Phone Numbers Labs: Lab Results Component Value Date/Time CREAT 1.1 12/07/2024 08:43 AM CREAT 1.1 10/10/2020 08:50 AM POTASSIUM 4.5 12/07/2024 08:43 AM POTASSIUM 4.4 10/10/2020 08:50 AM TSH 0.98 11/03/2023 09:05 AM TSH 1.32 05/25/2009 10:15 AM LDL 62 11/03/2023 09:05 AM LDL 66 10/10/2020 08:50 AM LDL NOT APPLICABLE 10/10/2020 08:50 AM ALT 23 12/07/2024 08:43 AM ALT 39 10/10/2020 08:50 AM HGBA1C 8.1 (H) 11/07/2024 12:00 AM HGBA1C 8.8 (H) 09/02/2019 08:29 AM documented in this encounter Plan of Treatment Upcoming Encounters Date Type Department Care Team (Late st Contact Info) Description 01/05/2025 8:00 AM EDT Anticoagulation Family Practice 65 [facility] 293 [facility] [address] College, Pharmacist [address], [place] [address] 02/06/2025 8:00 AM EDT Office Visit Ophthalmology, [facility] 132 [facility] [place] [address] Brenden Ellis, DO 132 [facility] [place] [address] 03/07/2025 10:15 AM EDT [facility] [address] [place] [address] 03/09/2025 8:40 AM EDT Office Visit Family Practice 65 [facility] [address] Pascual Truong, DO 293 [facility], [place] [address] 08/14/2025 9:00 AM EST Imaging Radiology [facility] 132 [facility] [place] [address] 08/31/2025 8:30 AM EST Office Visit Rheumatology [facility] [address] [place] [address] Iván Golden CRNP [address] [place], [place] [address] [address] Health Maintenance Due Date Last Done Comments [...] D LEVEL ONCE IN A LIFETIME-USE SMARTSET# [id number] Completed 09/05/2024, 11/26/2021, 08/09/2021, Additional history exists [...] filedocumented as of this encounter Care Teams Kiln Firer Helper Relationship Specialty Start Date End Date Pascual Truong DO [address] [place] [address] PCP - General Internal Medicine 04/20/24 documented as of this encounter
--- OUTSIDE RECORDS SUMMARY | 2025-02-10 21:51 | External Medical Summary | Summary of Care ---
Author Name Unknown Organization [facility] Address [address] [place] [address] Phone [phone] Care Team Providers Care Customer Service Agent Name Role Phone Artemio Truong DO Primary Care Provider [phone] Reason for Visit * Reason Onset Date Comments Diarrhea 12/19/2024 Encounter Details Date Type Department Care Team (Late st Contact Info) Description 12/19/2024 Telephone Family Practice [address], [place] [address] [place] [address] Artemio Truong DO [address] [place] [address] Diarrhea Allergies No known active allergiesdocumented as of this encounter (statuses as of 12/19/2024) Medications Blood Glucose Monitoring Suppl (YoungCracksTOUCH ULTRA 2) w/Device KITIndications:T ype 2 diabetes [...] shelter 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 0 [...] 8:00 AM EDT Anticoagulation Family Practice 65 [facility] 293 [place] [address] College, Pharmacist [address] [place] [address] 02/06/2025 8:00 AM EDT Office Visit Ophthalmology, [facility] [address] [place] [address] Brenden Ellis, DO [address] [place] [address] 03/07/2025 10:15 AM EDT Imaging Radiology [facility] 1st Floor, [place] [address] [place] [phone] 03/09/2025 8:40 AM EDT Office Visit Family Practice [address], [place] 293 [facility], [place] [address] Artemio Truong, DO 293 [facility], [place] [address] 08/14/2025 9:00 AM EST Imaging Radiology [facility] [address] [place] [address] 08/31/2025 8:30 AM EST Office Visit Rheumatology [facility] [address] [place] [phone] Iván Golden CRNP [address] [place] [address], [place] [address] Health Maintenance Due Date Last Done Comments [...] D LEVEL ONCE IN A LIFETIME-USE SMARTSET# [id number] Completed 09/05/2024, 11/26/2021, 08/09/2021, Additional history exists [...] filedocumented as of this encounter Care Teams Customer Service Agent Relationship Specialty Start Date End Date Artemio Truong DO [address] [facility] [place] [address] PCP - General Internal Medicine 04/20/24 documented as of this encounter
--- OUTSIDE RECORDS SUMMARY | 2025-02-10 21:51 | External Medical Summary | Summary of Care ---
Author Name Unknown Organization [facility] Address [address] [place] [address] Phone [phone] Care Team Providers Care Milk Wagon Driver Name Role Phone Artemio Truong DO Primary Care Provider [phone] Encounter Details Date Type Department Care Team (Late st Contact Info) Description 12/12/2024 9:45 AM EST Scheduled Telephone Care Coordination and Integration [address] [place] [address] Mee Ford, Community Health Care Coordinator [address] [place], [place] [id number] Allergies No known active allergiesdocumented as of this encounter (statuses as of 12/12/2024) Medications Blood Glucose Monitoring Suppl (Regenerative Medical SolutionsTOUCH ULTRA 2) w/Device KITIndications:T ype 2 diabetes [...] less than 7.0% ([facility]) TAKE ONE TABLET BY MOUTH TWICE [...] less than 7.0% ([facility]) TAKE TWO TABLETS BY MOUTH WITH [...] mouth in the morning. 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 Type 2 diabetes, HbA1C goal < 8% 07/26/2009 Overview (02/05/2016): Modified per Diabetes protocol #14. ICD-10 update of inactive term Permanent atrial fibrillation 10/19/2008 documented as of this encounter (statuses as of 12/12/2024) Resolved Problems Problem Noted Date Diagnosed Date [...] as of this encounter (statuses as of 12/12/2024) Immunizations Name Administration Dates Next Due COVID-19 [...] No 11/18/2024 Does the household have a mimbres memorial hospitallar source of income? (Household - for ages [...] as of this encounter Progress Notes * Mariana Armenta RN - 12/12/2024 11:29 AM EST Noted. * Mee Ford, Community Health Care Coordinator - 12/12/2024 11:05 AM EST Telemedicine visit: No Community Health Care Coordinator (LAURA) documentation: This CHW placed 3rd and final f/u PC to patient per CM's request Spouse answered the phone and than put patient on the phone. Patient was sleeping and spouse woke him. Patient is doing well. Patient reported that PT and OT came in to evaluate him and they told him that he did not need any PT or OT. The last INR draw was done at the doctors office last week. This CHW reviewed red flags with patient. Patient said that his weakness is improving and is pretty much gone. No falls or fever. Patient is taking his meds the same as when he went into the hospital. Patient did not have any further questions or concerns and this Chw encouraged patient to reach out to CM with any new symptoms/questions/concerns. Mee Ford- Community Health Worker 1 Support Services/[employer] app[employer] Plan [email or web address] documented in this encounter Plan of Treatment Upcoming Encounters Date Type Department Care Team (Late st Contact Info) Description 01/05/2025 8:00 AM EDT Anticoagulation Family Practice 65 [facility] 293 [place] [address] College, Pharmacist [address] [place] [address] 02/06/2025 8:00 AM EDT Office Visit Ophthalmology, [facility] 132 [facility] [place] [address] Brenden Ellis, DO 132 [facility] [place] [address] 03/07/2025 10:15 AM EDT Imaging Radiology [facility] 1st [facility] [address] [facility] [place] [address] 03/09/2025 8:40 AM EDT Office Visit Family Practice 65 [facility] 293 [facility] [address] Artemio Truong, DO 293 [facility], [place] [address] 08/14/2025 9:00 AM EST Imaging Radiology [facility] [address] [place] [address] 08/31/2025 8:30 AM EST Office Visit Rheumatology [facility] [address] [place] [address] Iván Golden CRNP [address] [facility] [place] [address] Health Maintenance Due Date Last Done Comments [...] D LEVEL ONCE IN A LIFETIME-USE SMARTSET# [id number] Completed 09/05/2024, 11/26/2021, 08/09/2021, Additional history exists [...] filedocumented as of this encounter Care Teams Milk Wagon Driver Relationship Specialty Start Date End Date Artemio Truong DO [address] [place] [address] PCP - General Internal Medicine 04/20/24 documented as of this encounter
--- OUTSIDE RECORDS SUMMARY | 2025-02-10 21:51 | External Medical Summary | Summary of Care ---
Author Name Unknown Organization [facility] Address [address] [place] [address] Phone [phone] Care Team Providers Care Welder Journeyman Name Role Phone Artemio Truong DO Primary Care Provider [phone] Reason for Visit * Reason Onset Date Comments Test Results 12/22/202412/22 Encounter Details Date Type Department Care Team (Late st Contact Info) Description 12/22/2024 Telephone Family Practice 65 [facility] [place] 293 [place] [address] Artemio Truong DO 293 [place] [address] Test Results (12/22) Allergies No known active allergiesdocumented as of this encounter (statuses as of 12/22/2024) Medications Blood Glucose Monitoring Suppl (ONETOUCH ULTRA 2) w/Device KITIndications:T ype 2 diabetes mellitus with hemoglobin A1c goal of less than 7.0% ([facility]) 12/16/19 19 Active acetaminophen (TYLENOL) [...] as of this encounter (statuses as of 12/22/2024) Active Problems Problem Noted Date Diagnosed Date 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 PMR (polymyalgia rheumatica) 01/10/2011 snf current use of systemic steroids 01/10 intermodal [...] as of this encounter (statuses as of 12/22/2024) Resolved Problems Problem Noted Date Diagnosed Date [...] as of this encounter (statuses as of 12/22/2024) Immunizations Name Administration Dates Next Due COVID-19 mRNA, LNP-s, No Pre serve, 2-Dose Series (Moderna) 12/22/2020,11/24/2020 COVID-19, MRNA-LNP, PF, 30 M CG/0.3 mL, 12 YRS AND ABOVE, IM (Applied Bioresearch-ComirnatKynded) 07/12/2024,08/03/2023 COVID-19, mRNA, LNP-s, PF, B ooster, [...] encounter Miscellaneous Notes * Telephone Encounter - Artemio Truong DO - 12/22/2024 1:01 PM EDT Noted Visit scheduled 12/27/2024 * Telephone Encounter - Karen Kelly LPN - 12/22/2024 12:48 PM EDT Call placed to patient and relayed information from Dr. Truong. Pt acknowledged understanding. Pt reports his diarrhea is starting to improve. 1 loose BM yesterday and 1 loose BM today. States he is staying hydrated. Advised to contact office if symptoms worsen. Confirmed OV with Dr. Truong on 12/27/24. * Telephone Encounter - Karen Kelly LPN - 12/22/2024 12:45 PM EDT ----- Message from Artemio Truong DO sent at 12/21/2024 8:00 PM EDT ----- Stool C. Diff and stool pathogen panel are negative. See if diarrhea has improved. documented in this encounter Plan of Treatment Upcoming Encounters Date Type Department Care Team (Late st Contact Info) Description 12/27/2024 8:00 AM EDT Office Visit Family Practice 65 [facility] 293 [place] [address] Artemio Truong, 293 [place] [address] 01/05/2025 8:00 AM EDT Anticoagulation Family Practice 65 [facility] 293 [facility], [place] [address] College, Pharmacist [address] [place] [address] 02/06/2025 8:00 AM EDT Office Visit Ophthalmology, [facility] [address] [place] [address] Brenden Ellis DO [address] [place] [address] 03/07/2025 10:15 AM EDT Imaging Radiology [facility]st [facility] [address] [place] [address] 03/09/2025 8:40 AM EDT Office Visit Family Practice 65 [facility] [address] [place] [address] Artemio Truong DO 293 [facility] [address] 08/14/2025 9:00 AM EST Imaging Radiology [facility] [address] [place] [phone] 08/31/2025 8:30 AM EST [facility] [address] [place] [address] Iván Golden CRNP [address] [facility] [place] [address] Health Maintenance Due Date Last Done Comments [...] D LEVEL ONCE IN A LIFETIME-USE SMARTSET# [id number] Completed 09/05/2024, 11/26/2021, 08/09/2021, Additional history exists [...] filedocumented as of this encounter Care Teams Welder Journeyman Relationship Specialty Start Date End Date Artemio Truong DO [address] [place] [address] PCP - General Internal Medicine 04/20/24 documented as of this encounter
--- OUTSIDE RECORDS SUMMARY | 2025-02-10 21:51 | External Medical Summary ---
Author Name Unknown Address Unknown Organization [id number]:[facility] [place] - [address] [place] [id number] Laboratory Report Ordering Provider Test Date Status JANEL GARNER 12/20/2024 10:27:54 Final Observation Date Value Abnormality Reference (Units) Status Bacteria identified in Specimen by Culture 12/20/2024 10:27:54 No Aeromonas species or Plesiomonas species isolated. Final Test: Gastrointestinal Patho gen Panel Culture
Specimen Source: Stool
Specimen Type: Stool
Specimen Date: 12/20/2024 1027
Result Date: 12/23/2024 1117
Result Status: Final result
Resulting Lab: [facility] [place] [facility]
[address]
[facility] [address]

CULTURE

No Aeromonas species or Plesiomonas species isolated.

null Performing Location [facility] [place] - [address] [facility] [address]
--- OUTSIDE RECORDS SUMMARY | 2025-02-10 21:52 | External Medical Summary ---
Author Name Unknown Address Unknown Organization [id number]:LABORATORY [facility] [place] - [address] [facility] [address] Laboratory Report Ordering Provider Test Date Status JANEL GARNER 12/07/2024 08:43:38 Final Observation Date Value Abnormality Reference (Units ) Status SYNC LEUKOCYTES IN BLOOD BY AUTOMATED COUNT 12/07/2024 08:43:38 10.87 Above high normal 4.00-10.80 (K/uL) Final Segs 12/07/2024 08:43:38 74.5 40.0-75.0 (%) Final Lymphs % 12/07/2024 08:43:38 13.9 Below low normal 18.0-42.0 (%) Final Monos 12/07/2024 08:43:38 8.9 1.0-11.0 (%) Final Eosinophils 12/07/2024 08:43:38 1.7 0.0-6.0 (%) Final Basos 12/07/2024 08:43:38 0.4 0.0-2.0 (%) Final Immature Granulocyte, Percent 12/07/2024 08:43:38 0.6 0.0-2.0 (%) Final Absolute Segs 12/07/2024 08:43:38 8.10 Above high normal 1.80-7.70 (K/uL) Final Lymphs, absolute 12/07/2024 08:43:38 1.51 1.00-4.80 (K/ul) Final Monos, Abs 12/07/2024 08:43:38 0.97 0.00-1.10 (K/uL) Final Eos, Abs 12/07/2024 08:43:38 0.19 0.00-0.70 (K/uL) Final Basos, Abs 12/07/2024 08:43:38 0.04 0.00-0.20 (K/uL) Final Immature Granulocytes, Number 12/07/2024 08:43:38 0.06 0.00-0.20 (K/uL) Final Performing Location LABORATORY [facility] [place] - [facility] [place] [address]
--- OUTSIDE RECORDS SUMMARY | 2025-02-10 21:52 | External Medical Summary ---
Author Name Unknown Address Unknown Organization [id number]:[facility] [place] [facility] [address] [facility] [address] [facility] [address] Laboratory Report Ordering Provider Test Date Status JANEL GARNER 12/07/2024 08:43:38 Final Observation Date Value Abnormality Reference (Units ) Status WBC, Total 12/07/2024 08:43:38 10.87 Above high normal 4.00-10.80 (K/uL) Final RBC 12/07/2024 08:43:38 4.11 4.50-5.25 (M/uL) Final Hemoglobin 12/07/2024 08:43:38 12.0 Below low normal 14.0-16.8 (g/dL) Final HCT 12/07/2024 08:43:38 39.0 Below low normal 40.0-48.4 (%) Final MCV 12/07/2024 08:43:38 94.9 82.0-99.5 (fL) Final MCH 12/07/2024 08:43:38 29.2 27.0-34.0 (pg) Final MCHC 12/07/2024 08:43:38 30.8 32.0-36.0 (g/dL) Final RDW 12/07/2024 08:43:38 14.9 11.5-15.5 (%) Final Platelets 12/07/2024 08:43:38 202 140-400 (K/uL) Final MPV 12/07/2024 08:43:38 12.4 6.6-11.1 (fL) Final Nucleated erythrocytes/100 leukocytes [Ratio] in Blood by Automated count 12/07/2024 08:43:38 0 <=0 (/100 WBCs) Final Performing Location [facility] [place] [address] [facility] [address]
--- OUTSIDE RECORDS SUMMARY | 2025-02-10 21:52 | External Medical Summary ---
Author Name UNSPECIFIED Address Unknown Organization [facility] History of Encounters Reason for Assessment: Start of care - f urther visits planned Inpatient discharge facility: Past 14 Da ys: Discharged From Short Stay Acute Hospital Most Recent Inpatient Discharge Date: Functional Assessment Patient Living Situation: Patient lives with other person(s) in the home: Around the clock When Dyspneic: With moderate exerti on (e.g., while dressing, using commode or bedpan, walking distances less than 20 feet) Bowel Incontinence Frequency: Very rarel y or never has bowel incontinence Cognitive Functioning: Requires promptin g (cueing, repetition, reminders) only under stressful or unfamiliar conditions. When Confused (Reported or Observed): In new or complex situations only Cognitive and Behavioral and Psychiatric Symptoms: Memory deficit: failure to recognize familiar persons/places, inability to recall events of past 24 hours, significant memory loss so that supervision is required Frequency of Behavior Problems: Several times a week Current Ability: Bathing: able to partic ipate in bathing self in shower or tub, but requires presence of another person throughout the bath for assistance or supervision. Current Ability: Ambulation: Able to wal k only with the supervision or assistance of another person at all times. Current: Management Of Oral Medications: Unable to take medication unless administered by another person Current: Management Of Injec table Medications: Unable to take injectable medication unless administered by another person. Problems Primary Home Care Diagnosis ICD Code: J1 0.08, Influenza due to oth ident influenza virus w oth pneumonia Home Care Diagnosis 1: ICD Code: J69.0, Pneumonitis due to inhalation of food and vomit Home Care Diagnosis 1: Severity Ratin Home Care Diagnosis 2: ICD Code: J81.1, Chronic pulmonary edema Home Care Diagnosis 2: Severity Ratin Home Care Diagnosis 3: ICD Code: J44.1, Chronic obstructive pulmonary disease w (acute) exacerbation Home Care Diagnosis 3: Severity Ratin Home Care Diagnosis 4: ICD Code: I48.21^ ^ Home Care Diagnosis 4: Severity Ratin Home Care Diagnosis 5: ICD Code: E11.22, Type 2 diabetes mellitus w diabetic chronic kidney disease Home Care Diagnosis 5: Severity Ratin
--- OUTSIDE RECORDS SUMMARY | 2025-02-10 21:52 | External Medical Summary | Summary of Care ---
Author Name Unknown Organization [facility] Address [address] [place] [address] Phone [phone] Care Team Providers Care Barrel Ribs Solderer Name Role Phone Artemio Truong DO Primary Care Provider [phone] Encounter Details Date Type Department Care Team (Late st Contact Info) Description 12/12/2024 9:45 AM EST Scheduled Telephone Care Coordination and Integration [address] [place] [address] Mee Ford, Community Health Temporary Receptionist [address] [place], [place] [id number] Allergies No known active allergiesdocumented as of this encounter (statuses as of 12/12/2024) Medications Blood Glucose Monitoring Suppl (My-wardrobe.comTOUCH ULTRA 2) w/Device KITIndications:T ype 2 diabetes mellitus with hemoglobin A1c goal of less than 7.0% ([facility]) 12/16/19 19 Active acetaminophen (TYLENOL) 500 MG [...] goal of less than 7.0% ([facility]) Use to test once daily. DX:E11.9 100 [...] goal of less than 7.0% ([facility]) TAKE ONE TABLET BY MOUTH TWICE A [...] goal of less than 7.0% ([facility]) TAKE TWO TABLETS BY MOUTH WITH BREAKFAST, [...] HTN Protocol #27. 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 (Household - for ages [...] EST Noted. * Mee Ford, Community Health Temporary Receptionist - 12/12/2024 11:05 AM EST Telemedicine visit: No Community Health Temporary Receptionist (LAURA) documentation: This CHW placed 3rd and [...] Mee Ford- Community Health Worker 1 Support Services/[facility] [employer] Plan [email or web address] documented in this encounter Plan of Treatment Upcoming Encounters Date Type Department Care Team (Late st Contact Info) Description 01/05/2025 8:00 AM EDT Anticoagulation Family Practice 65 [facility] [address] [place] [address] College, Pharmacist [address] [place] [address] 02/06/2025 8:00 AM EDT Office Visit Ophthalmology, [facility] 132 [facility] [place] [address] Brenden Ellis, DO 132 [facility] [place] [address] 03/07/2025 10:15 AM EDT Imaging Radiology [facility] 1st [facility] [address] [facility] [place] [address] 03/09/2025 8:40 AM EDT Office Visit Family Practice 65 [facility] [address] Artemio Truong, DO 293 [facility], [place] [address] 08/14/2025 9:00 AM EST Imaging Radiology [facility] [address] [place] [address] 08/31/2025 8:30 AM EST Office Visit Rheumatology Y[facility] [address] [place] [address] Iván Golden CRNP [address] [facility] [place] [address] Health Maintenance Due Date Last Done Comments [...] D LEVEL ONCE IN A LIFETIME-USE SMARTSET# 34216 Completed 09/05/2024, 11/26/2021, 08/09/2021, Additional history exists [...] filedocumented as of this encounter Care Teams Barrel Ribs Solderer Relationship Specialty Start Date End Date Artemio Truong DO [address] [place] [address] PCP - General Internal Medicine 04/20/24 documented as of this encounter
--- OUTSIDE RECORDS SUMMARY | 2025-02-10 21:52 | External Medical Summary ---
Author Name Unknown Address Unknown Organization K01:[facility] [place] [address] [place] [address] Laboratory Report Ordering Provider Test Date Status JANEL GARNER 12/07/2024 08:43:38 Final Observation Date Value Abnormality Reference (Units ) Status Vitamin B12 12/07/2024 08:43:38 [phone] (pg/mL) Final Performing Location LABORATORY [facility] - [address] [place] [address]
--- OUTSIDE RECORDS SUMMARY | 2025-02-10 21:52 | External Medical Summary | Summary of Care ---
Author Name Unknown Organization [facility] Address [address] [place] [address] Phone [phone] Care Team Providers Care Analyst Sales Name Role Phone Artemio Truong DO Primary Care Provider Reason for Visit * Reason Comments Follow Up Encounter Details Date Type Department Care Team (Latest Contact Info) Description 12/07/2024 8:00 AM EST Office Visit Family Practice 65 [facility] [place] [address] [place] [phone] Artemio Truong DO [address] [place] [address] Type 2 diabetes, HbA1C goal < 8% ([facility])*; Moderate nonproliferative diabetic retinopathy of both eyes with macular edema associated with type 2 diabetes mellitus ([facility]); Permanent atrial fibrillation ([facility]); PMR (polymyalgia rheumatica) ([facility]); Steroid-induced osteoporosis; DYSLIPIDEMIA, GOAL LDL BELOW 100; HTN, goal below 140/90; Physical deconditioning; Aspiration pneumonia of right lower lobe due to gastric secretions ([facility]); Encounter for long-term current use of medication; Anticoagulation management encounter; penitentiary current use of anticoagulant therapy Allergies No known active allergiesdocumented as of this encounter (statuses as of 12/07/2024) Medications Blood Glucose Monitoring Suppl ([place] ULTRA 2) w/Device KITIndications:T ype 2 diabetes mellitus with hemoglobin A1c goal of less than 7.0% ([facility]) 12/16/19 19 Active acetaminophen (TYLENOL) [...] 7.0% ([facility]) TAKE TWO TABLETS BY MOUTH WITH BREAKFAST, ONE TABLET WITH LUNCH AND ONE TABLET WITH DINNER 360 Tablet 3 5 7:25 AM EST 03/18/20 24 025 Active Additional Information Patient taking differently: 10 mg, Two in the morning and one with dinner, Reported on 12/07/2024 DULoxetine HCl 20 MG Oral Capsule Delayed Release Particles (Cymbalta)Indica tions:Polymyalgi a rheumatica ([facility]) TAKE ONE CAPSULE BY MOUTH [...] ications:Type 2 diabetes, HbA1C goal < 8% ([facility]) Inject 4.5 mg under the [...] as of this encounter (statuses as of 12/07/2024) Active Problems Problem Noted Date Diagnosed Date [...] Protocol #27. 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 Type 2 diabetes, HbA1C goal < 8% 07/26/2009 Overview (02/05/2016): Modified per Diabetes protocol #14. ICD-10 update of inactive term Permanent atrial fibrillation 10/19/2008 documented as of this encounter (statuses as of 12/07/2024) Resolved Problems Problem Noted Date Diagnosed Date [...] as of this encounter (statuses as of 12/07/2024) Immunizations Name Administration Dates Next Due COVID-19 [...] Sign Reading Time Taken Comments Blood Pressure 134/64 12/07/2024 8:17 AM EST Pulse 88 12/07/2024 8:17 AM EST Temperature 36.2 °C (97.1 °F) 12/07/2024 8:17 AM ES T Respiratory Rate 14 12/07/2024 8:17 AM EST Oxygen Saturation 98% 12/07/2024 8:17 AM EST Inhaled Oxygen Concentration - - Weight 80.9 kg (178 lb 4.8 oz) 12/07/2024 8:17 A M EST Height 177.8 cm (5' 10") 12/07/2024 8:17 AM EST Body Mass Index 25.58 12/07/2024 8:17 AM EST documented in this encounter Progress Notes * Artemio Truong, DO - 12/07/2024 8:43 AM EST SUBJECTIVE: Mitchel Mcpherson is a 79 year old male. Chief Complaint Patient presents with Follow Up HPI: Patient is an 79 year old male with a history of Type II Diabetes, PMR, Atrial Fibrillation, Hyperlipidemia, Osteoporosis, and Diabetic Retinopathy that is seen for follow up. The patient was admitted to [facility] from 11/06/2024- 11/16/2024. The patient was admitted due to hypoxemic respiratory failure due to Aspiration Pneumonia. No chest pain or shortness of breath are present. Appetite is improving slowly. Weight is stable. Fatigue is unchanged. Diarrhea has resolved. 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 Vitamin D3 50 MCG (2000 UT) Oral Capsule Take 1 Capsule by mouth every evening. (Gummy) 30 Cap 5 Vitamin B 12 500 MCG Oral Tablet Take 1 Tablet by mouth every evening. (Gummy) metFORMIN HCl 1000 MG Oral Tablet (Glucophage) TAKE ONE TABLET BY MOUTH TWICE A DAY WITH FOOD. 200 Tablet 3 Sildenafil Citrate 20 MG Oral Tablet (Revatio) take 5 tablets by mouth daily if needed for ERECTILEDYSFUNCTION TAKE 1 HOUR BEFORE SEX 20 Tablet 3 glipiZIDE 10 MG Oral Tablet (Glucotrol) TAKE [...] ONE TABLET BEFORE BEDTIME 200 Tablet 2 Metoprolol Tartrate 50 MG Oral Tablet (Lopressor) TAKE ONE TABLET BY MOUTH EVERY MORNING AND AT BEDTIME 200 Tablet 1 Enalapril Maleate 10 MG Oral Tablet (Vasotec) TAKE ONE TABLET BY MOUTH EVERY MORNING 100 Tablet 0 Trulicity 4.5 MG/0.5ML Subcutaneous Solution Auto-injector (Dulaglutide) Inject 4.5 mg under the skin once a week. 2 mL 11 Warfarin Sodium 5 MG Oral Tablet (Coumadin) Take 1 tablet by mouth once daily or as directed by anticoagulation clinic 90 Tablet 3 Probiotic & Acidophilus Ex St Oral Capsule Take 1 Capsule by mouth in the morning. Blood Glucose Monitoring Suppl (ONETOUCH ULTRA 2) w/Device KIT OneTouch Ultra Blue In Vitro Strip (Glucose Blood) Use to test once daily. DX:E11.9 100 Strip 3 OneTouch Delica Lancets 33G Use to test once daily. DX: E11.9 100 Each 3 No current facility-administered medications for this visit. [...] left duct drained KNEE ARTHROSCOPY/SURGERY 02/09/2009 [facility] ortho/left knee OTHER (INFORMATION) ACT 112 SIGNED 11/25/23; DR ELLIS REMOVAL OF NOSE POLYP(S), SIMPLE REMOVE CATARACT, INSERT LENS PROSTH Left 01/01/2022 REMOVE CATARACT, INSERT LENS PROSTH Right 01/15/2022 REPAIR RUPTURED ROTATOR CUFF, CHRON Left Dr. Abad Review of patient's allergies indicates: No Known Allergies Review of Systems Constitutional: Positive for appetite change (decreased appetite) and fatigue. Negative for unexpected weight change. HENT: Negative for congestion, sore throat and trouble swallowing. Respiratory: Negative for cough, shortness of breath and wheezing. Cardiovascular: Negative for chest pain, palpitations and leg swelling. Gastrointestinal: Negative for abdominal pain, blood in stool, constipation, diarrhea, nausea and vomiting. Genitourinary: Negative for dysuria, frequency and hematuria. Musculoskeletal: Positive for arthralgias, back pain, gait problem and myalgias. Neurological: Negative for dizziness, syncope and headaches. Psychiatric/Behavioral: Negative for confusion, decreased concentration and sleep disturbance. OBJECTIVE: BP 134/64 (BP Site: Left Arm, BP Position: Sitting, BP Cuff Size: Regular) | Pulse 88 | Temp 97.1 °F (36.2 °C) (Tympanic) | Resp 14 | Ht 5' 10" (1.778 m) | Wt 178 lb 4.8 oz (80.9 kg) | SpO2 98% | BMI 25.58 kg/m² | BSA 2 m² Physical Exam Vitals and nursing note reviewed. Constitutional: General: He is not in acute distress. Appearance: Normal appearance. He is not toxic-appearing. HENT: Head: Normocephalic and atraumatic. Cardiovascular: Rate and Rhythm: Normal rate. Rhythm irregular. Heart sounds: No murmur heard. No gallop. Pulmonary: Effort: [...] Behavior normal. Thought Content: Thought content normal. 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 ([facility]) Continue to follow with Ophthalmology Permanent atrial fibrillation ([facility]) - PT INR Continue Warfarin and Metoprolol ER PMR (polymyalgia rheumatica) ([facility]) Continue Prednisone Continue to follow with Rheumatology Steroid-induced osteoporosis Continued Alendronate DYSLIPIDEMIA, GOAL LDL BELOW 100 Continue Atorvastatin HTN, goal below 140/90 Continue Enalapril Physical deconditioning Aspiration pneumonia of right lower lobe due to gastric secretions ([facility]) - COMPREHENSIVE METABOLIC PANEL - CBC WITH WBC DIFFERENTIAL - CT CHEST WO CONTRAST; Future; Expected date: 02/19/2025 Encounter for long-term current use of medication - VITAMIN B12; Future; Expected date: 12/07/2024 - VITAMIN B12 Anticoagulation management encounter - PT INR penitentiary current use of anticoagulant therapy - PT INR Follow Up: Return in about 3 months (around 03/06/2025), or if symptoms worsen or fail to improve. Artemio Truong DO 8:43 AM 12/07/2024 documented in this encounter Nursing Notes * Karen Kelly LPN - 12/07/2024 8:13 AM EST Patient here for routine follow up visit. No concerns voiced. States he follows with Dr. Kong - has appt with Dr. Ellis in January to f/u on Diabetic eye issues. States BSG 119 this morning. documented in this encounter Plan of Treatment Upcoming Encounters Date Type Department Care Team (Late st Contact Info) Description 12/08/2024 9:00 AM EST Anticoagulation Family Practice [address] [place] [address] College, Pharmacist [address] [place] [address], [place] [address] 02/06/2025 8:00 AM EDT Office Visit [facility] [address] [place] [address] Brenden Ellis, DO 132 [facility] [place] [address] 03/07/2025 10:15 AM EDT [facility] 132 [facility] [place] [phone] 03/09/2025 8:40 AM EDT Office Visit Family Practice 65 [facility] 293 [facility], [place] [address] Artemio Truong, DO 293 [facility] [place] [address] 08/14/2025 9:00 AM EST [facility] [place] [phone] 08/31/2025 8:30 AM EST [facility] [place] [phone] Iván Golden CRNP [address] [place] [address], [place] [address] Pending Results Name Type Priority Associated Diagnoses Date /Time VITAMIN B12 Lab Routine Encounter for long-term current use of medication 12/07/2024 8:43 AM EST PT INR Lab Routine Permanent atrial fibrillation (HCC) Anticoagulation management encounter intermodal owner operator truck driver current use of anticoagulant therapy 12/07/2024 8:43 AM EST COMPREHENSIVE METABOLIC PANEL Lab Routine Aspiration pneumonia of right lower lobe due to gastric secretions (HCC) 12/07/2024 8:43 AM EST CBC WITH WBC DIFFERENTIAL Lab Routine Aspiration pneumonia of right lower lobe due to gastric secretions (HCC) 12/07/2024 8:43 AM EST CBC Lab Routine Aspiration pneumonia of right lower lobe due to gastric secretions (HCC) 12/07/2024 8:43 AM EST DIFFERENTIAL, AUTOMATED Lab Routine Aspiration pneumonia of right lower lobe due to gastric secretions (HCC) 12/07/2024 8:43 AM EST Scheduled Orders Name Type Priority Associated Diagnoses Orde r Schedule VITAMIN B12 Lab Routine Encounter for long-term current use of medication Expected: 12/07/2024 (Approximate), Expires: 01/04/2026 Health Maintenance Due Date Last Done Comments Adult Wellness Visit 03/31/2015 03/31/2014 Diabetic Eye Exam 11/23/2024 11/23/2023, , 11/23/2023, Additional history exists B-12 12/01/2024 12/01/2023, 10/13, 01/08/2023, Additional history exists COVID-19 Vaccine ( season) 2025 07/12/2024, 08/03/2023, 08/05/2022, Additional history exists HbA1c 05/07/2025 11/07/2024, 10/0 10/2023, 03/10/2024, Additional history exists Albumin/Creatinine Ratio 07/12/2025 024, 06/23/2023, 09/01/2022, Additional history exists Diabetic Foot Exam 07/12/2025 07/12/2024, 0 04/29/2023, 07/23/2022, Additional history exists DXA Scan 08/10/2025 08/10/2023, 07/14, 08/05/2021, Additional history exists GFR 09/05/2025 09/05/2024, 10/13, 01/08/2023, Additional history exists Depression Screening 11/22/2025 11/22/2024 DTap/Tdap Vaccines (3 - Td or Tdap) 07/23/2032 07/23/2022, 04/19/2012, 01/29/2001 Pneumococcal Vaccine: 50+ Years Completed 03/03/2016, 01/03/2009, 09/01/2003 Zoster Vaccines Completed 03/27/2022, 11/26/2021 Influenza Vaccine (FLU shot) Completed , 06/24/2024, 06/23/2023, Additional history exists VITAMIN D LEVEL ONCE IN A LIFETIME-USE SMARTSET# [id number] Completed 09/05/2024, 11/26/2021, 08/09/2021, Additional history exists [...] mention of complication, not stated as uncontrolled Moderate nonproliferative diabetic retinopathy of both eyes with macular edema associated with type 2 diabetes mellitus (HCC) Permanent atrial fibrillation (HCC) Atrial fibrillation PMR (polymyalgia rheumatica) (HCC) Polymyalgia rheumatica Steroid-induced osteoporosis Other osteoporosis DYSLIPIDEMIA, GOAL LDL BELOW 100 Other and unspecified hyperlipidemia HTN, goal below 140/90 Unspecified essential hypertension Physical deconditioning Debility, unspecified Aspiration pneumonia of right lower lobe due to gastric secretions (HCC) Encounter for long-term current use of medication Anticoagulation management encounter Encounter for therapeutic drug monitoring intermodal owner operator truck driver current use of anticoagulant therapy documented in this encounter Care Teams Analyst Sales Relationship Specialty Start Date End Date Artemio Truong DO [address] [place] [address] PCP - General Internal Medicine 04/20/24 documented as of this encounter
--- OUTSIDE RECORDS SUMMARY | 2025-02-10 21:52 | External Medical Summary ---
Author Name Unknown Address Unknown Organization [id number]:LABORATORY [facility] [place] - [address] [place] [address] Laboratory Report Ordering Provider Test Date Status JANEL GARNER 12/07/2024 08:43:38 Final Observation Date Value Abnormality Reference (Units ) Status BUN 12/07/2024 08:43:38 20 6-20 (mg/dL) Final Creatinine 12/07/2024 08:43:38 1.1 0.6-1.2 (mg/dL) Final Glomerular filtration rate/1.73 sq M.predicted [Volume Rate/Area] in Serum, Plasma or Blood by Creatinine-based formula (CKD-EPI) 12/07/2024 08:43:38 66 >=60 (mL/min) Final eGFR is calculated based on the CKD-EPI 2020 equation. Sodium 12/07/2024 08:43:38 139 135-146 (m mol/L) Final Potassium 12/07/2024 08:43:38 4.5 3.5-5.1 (m mol/L) Final Cl 12/07/2024 08:43:38 101 98-107 (mm ol/L) Final CO2 12/07/2024 08:43:38 25 22-32 (mmo l/L) Final Anion gap 12/07/2024 08:43:38 13 7-15 (mmol /L) Final Glucose 12/07/2024 08:43:38 199 Above high normal 70 -120 (mg/dL) Final Albumin 12/07/2024 08:43:38 3.8 3.8-5.0 (g /dL) Final AST (Aspartate aminotransferase) 12/07/2024 08:43:38 18 10-50 (U/L) Fin al Alk Phos 12/07/2024 08:43:38 33 Below low normal 35- 130 (U/L) Final Bilirubin, Total 12/07/2024 08:43:38 0.2 <=1 .2 (mg/dL) Final Calcium 12/07/2024 08:43:38 9.3 8.4-10.2 ( mg/dL) Final Protein 12/07/2024 08:43:38 6.2 6.0-8.3 (g /dL) Final ALT (Alanine aminotransferase) 12/07/2024 08:43:38 23 10-50 (U/L) Carter gutiérrez Performing Location LABORATORY [facility] [place] - [address] [facility] [address]
--- OUTSIDE RECORDS SUMMARY | 2025-02-10 21:52 | External Medical Summary | Summary of Care ---
Author Name Unknown Organization [facility] Address [address] [place] [address] Phone [phone] Care Team Providers Care Health Director Name Role Phone Artemio Truong DO Primary Care Provider [phone] Reason for Visit * Reason Onset Date Comments Status Check 12/06/2024 Encounter Details Date Type Department Care Team (Late st Contact Info) Description 12/06/2024 Telephone Family Practice [address] [facility], [place] [address] [place] [address] Artemio Truong DO [address] [place] [address] Status Check Allergies No known active allergiesdocumented as of this encounter (statuses as of 12/06/2024) Medications Blood Glucose Monitoring Suppl (ONETOUCH ULTRA 2) w/Device KITIndications:T ype 2 diabetes mellitus with hemoglobin A1c goal of less than 7.0% ([facility]) 12/16/19 19 Active acetaminophen (TYLENOL) 500 MG Tablet Take 1-2 Tablets by mouth every 6 hours as needed for Pain. Activ e Vitamin D3 50 MCG (1999 [place]) Oral Capsule Take 1 Capsule by mouth every evening. (Gummy) 30 Cap 5 08/11/20 21 Active OneTouch Ultra Blue In Vitro Strip (Glucose Blood)Indication s:Type 2 diabetes mellitus with hemoglobin A1c goal of less than 7.0% ([facility]) Use to test once daily. DX:E11.9 100 [...] hemoglobin A1c goal of less than 7.0% ([facility]) TAKE TWO TABLETS BY MOUTH WITH BREAKFAST, ONE TABLET WITH LUNCH AND ONE TABLET WITH DINNER 360 Tablet 3 5 12:44 PM EST 03/18/20 24 025 Active Additional Information Patient taking differently: 10 mg, Two in the morning and one with dinner, Reported on 11/22/2024 DULoxetine HCl 20 MG Oral Capsule Delayed [...] as of this encounter (statuses as of 12/06/2024) Active Problems Problem Noted Date Diagnosed Date 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 Type 2 diabetes, HbA1C goal < 8% 07/26/2009 Overview (02/05/2016): Modified per Diabetes protocol #14. ICD-10 update of inactive term Permanent atrial fibrillation 10/19/2008 documented as of this encounter (statuses as of 12/06/2024) Resolved Problems Problem Noted Date Diagnosed Date [...] as of this encounter (statuses as of 12/06/2024) Immunizations Name Administration Dates Next Due COVID-19 mRNA, LNP-s, No Pre serve, 2-Dose Series (Moderna) 12/22/2020,11/24/2020 COVID-19, MRNA-LNP, PF, 30 M CG/0.3 mL, 12 YRS AND ABOVE, IM ([facility] 07/12/2024,08/03/2023 COVID-19, mRNA, LNP-s, PF, B ooster, [...] encounter Miscellaneous Notes * Telephone Encounter - Elma Fajardo PHARM Tech - 12/06/2024 11:06 AM EST Pt calling to request glipiZIDE 10 . Informed pt that RX is available at their pharmacy. Pt verbalized understanding and stated they will check with their pharmacy regarding this medication. Thank you, Elma Fajardo CPhT Machine Gun Mechanic II [facility] 12/06/2024, 11:06 AM documented in this encounter Plan of Treatment Upcoming Encounters Date Type Department Care Team (Late st Contact Info) Description 12/07/2024 8:00 AM EST Office Visit Family Practice [address] [facility] [place] [address] [place] [address] Artemio Truong, DO [address] [place] [address] 12/08/2024 9:00 AM EST Anticoagulation Family Practice [address] [place] [address] [place] [address] College, Pharmacist [address] [facility] 293 [place] [address] 02/06/2025 8:00 AM EDT Office Visit Ophthalmology, [facility] [address] [facility] [place] [address] Brenden Ellis, 132 [facility] [place] [address] 03/07/2025 10:15 AM EDT [facility] 132 [facility] [place] [phone] 08/14/2025 9:00 AM EST Imaging Rad[facility] [place] [address] 08/31/2025 8:30 AM EST Office Visit Rheumatology [facility] 132 [facility] [place] [phone] Iván Golden, STAINED GLASS JOINER [address] [facility] [address] Health Maintenance Due Date Last Done Comments [...] D LEVEL ONCE IN A LIFETIME-USE SMARTSET# [id number] Completed 09/05/2024, 11/26/2021, 08/09/2021, Additional history exists [...] filedocumented as of this encounter Care Teams Health Director Relationship Specialty Start Date End Date Artemio Truong DO [address] [place] [address] PCP - General Internal Medicine 04/20/24 documented as of this encounter
--- OUTSIDE RECORDS SUMMARY | 2025-02-10 21:52 | External Medical Summary ---
Author Name Unknown Address Unknown Organization K01:[facility] [place] [facility] [place] [address] Laboratory Report Ordering Provider Test Date Status ROBSON GARDNER FAYE 12/07/2024 08:43:38 Final Warfarin Therapy
INR: 2 .0-3.0 conventional anticoagulation
INR: 2.5- 3.5 high intensity anticoagulation Observation Date Value Abnormality Reference (Units ) Status PT 12/07/2024 08:43:38 28.6 Above high normal 11 .6-15.2 (seconds) Final INR 12/07/2024 08:43:38 2.6 Above high normal 0. 8-1.2 Final Performing Location [facility] [address] [place] [address]
--- OUTSIDE RECORDS SUMMARY | 2025-02-10 21:52 | External Medical Summary | Summary of Care ---
Author Name Unknown Organization [facility] Address [address] [place] [address] Phone [phone] Care Team Providers Care Mammal Keeper Name Role Phone Artemio Truong DO Primary Care Provider [phone] Reason for Visit * Reason Onset Date Comments Test Results 12/08/202412/08 Encounter Details Date Type Department Care Team (Late st Contact Info) Description 12/08/2024 Telephone Family Practice [address] [facility] [place] [address] [place] [address] Artemio Truong DO [address] [place] [address] Test Results (12/08) Allergies No known active allergiesdocumented as of this encounter (statuses as of 12/08/2024) Medications Blood Glucose Monitoring Suppl (ONETOUCH ULTRA 2) w/Device KITIndications:T ype 2 diabetes mellitus with hemoglobin A1c goal of less than 7.0% ([facility]) 12/16/19 19 Active acetaminophen (TYLENOL) 500 MG Tablet Take 1-2 Tablets by mouth every 6 hours as needed for Pain. Activ e Vitamin D3 50 MCG (1999 [place]) Oral Capsule Take 1 Capsule by mouth every evening. (Gummy) 30 Cap 5 08/11/20 21 Active OneTouch Ultra Blue In Vitro Strip (Glucose Blood)Indication s:Type 2 diabetes mellitus with hemoglobin A1c goal of less than 7.0% ([facility]) Use to test once daily. DX:E11.9 100 Strip 3 07/28/20 22 Active OneTouch Delica Lancets 33G Use to test once daily. 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 Type 2 diabetes, HbA1C goal < 8% 07/26/2009 Overview (02/05/2016): Modified per Diabetes protocol #14. ICD-10 update of inactive term Permanent atrial fibrillation 10/19/2008 documented as of this encounter (statuses as of 12/08/2024) Resolved Problems Problem Noted Date Diagnosed Date [...] as of this encounter (statuses as of 12/08/2024) Immunizations Name Administration Dates Next Due COVID-19 [...] Telephone Encounter - Karen Kelly LPN - 12/08/2024 12:14 PM EST Call placed to patient and relayed information from Dr. Truong. Pt acknowledged understanding. No questions at this time. * Telephone Encounter - Karen Kelly LPN - 12/08/2024 12:13 PM EST ----- Message from Artemio Truong DO sent at 12/07/2024 9:16 PM EST ----- Labs are stable. Continue current medications. documented in this encounter Plan of Treatment Upcoming Encounters Date Type Department Care Team (Late st Contact Info) Description 01/05/2025 8:00 AM EDT Anticoagulation Family Practice [facility] 293 [facility] [address] College, Pharmacist 65 [facility] 293 [facility], [place] [address] 02/06/2025 8:00 AM EDT Office Visit Ophthalmology, [facility] 132 [facility] [place] [address] Brenden Ellis, DO [address] [place] [address] 03/07/2025 10:15 AM EDT Imaging Radiology [facility] 1st [facility] [address] [place] [address] 03/09/2025 8:40 AM EDT Office Visit Family Practice [address] [place] [address] 293 [facility], [place] [address] Artemio Truong, DO 293 [facility] [address] 08/14/2025 9:00 AM EST Imaging Rad[facility] [place] [phone] 08/31/2025 8:30 AM EST Office Visit Rheumatology [facility] 132 [facility] [place] [address] Iván Golden CRNP [address] [facility], [place] [address] Health Maintenance Due Date Last Done Comments [...] D LEVEL ONCE IN A LIFETIME-USE SMARTSET# [id number] Completed 09/05/2024, 11/26/2021, 08/09/2021, Additional history exists [...] filedocumented as of this encounter Care Teams Mammal Keeper Relationship Specialty Start Date End Date Artemio Truong DO [address] [place] [address] PCP - General Internal Medicine 04/20/24 documented as of this encounter
--- OUTSIDE RECORDS SUMMARY | 2025-02-10 21:52 | External Medical Summary | Summary of Care ---
Author Name Unknown Organization [facility] Address [address] [place] [address] Phone [phone] Care Team Providers Care Hide Mill Man Name Role Phone Artemio Truong DO Primary Care Provider [phone] Encounter Details Date Type Department Care Team (Late st Contact Info) Description 12/05/2024 12:30 PM EST Scheduled Telephone Care Coordination and Integration [address] [place], [place] [phone] Mee Ford, Community Health Crossing Watchman [address] [place], [place] [phone] Allergies No known active allergiesdocumented as of this encounter (statuses as of 12/05/2024) Medications Blood Glucose Monitoring Suppl (JotSpotTOUCH ULTRA 2) w/Device KITIndications:T ype 2 diabetes mellitus with hemoglobin A1c goal of less than 7.0% ([facility]) 12/16/19 19 Active acetaminophen (TYLENOL) 500 [...] hemoglobin A1c goal of less than 7.0% ([facility]) Use to test once daily. 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 PMR (polymyalgia rheumatica) 01/10/2011 FDC current use of systemic steroids 01/10 FDC current use of anticoagulant therapy 0 11/27/2010 Overview (07/13/2017): ICD-10 update of inactive term DYSLIPIDEMIA, GOAL LDL BELOW 100 09/20/2009 Overview (09/20/2009): Per Lipid Taxonomy. Type 2 diabetes, HbA1C goal < 8% 07/26/2009 Overview (02/05/2016): Modified per Diabetes protocol #14. ICD-10 update of inactive term Permanent atrial fibrillation 10/19/2008 documented as of this encounter (statuses as of 12/05/2024) Resolved Problems Problem Noted Date Diagnosed Date [...] as of this encounter (statuses as of 12/05/2024) Immunizations Name Administration Dates Next Due COVID-19 [...] Progress Notes * Mariana Armenta RN - 12/05/2024 12:02 PM EST Noted * Mee Ford, Community Health Crossing Watchman - 12/05/2024 11:56 AM EST Telemedicine visit: No Community Health Crossing Watchman (LAURA) documentation: This CHW placed #2 f/u PC to patient and spoke with spouse Spouse reported that patient is doing well. Pt and OT were in and they told them that patient did not need HH services like PT or OT. HH is still coming in to check patients vitals. INR was in last week and came twice however took it once. Spouse is not sure how often they will be coming or if theyare coming this week. This Chw reviewed red flags with spouse. Patient is still working on getting his strength back but this is getting better slowly. Spouse reported they have a Dr. Truong appt this Thursday as well. Spouse did not have any concerns or questions or med questions at this time. Mee Ford- Community Health Worker 1 Support Services/[facility] [employer] Plan [email or web address] documented in this encounter Plan of Treatment Upcoming Encounters Date Type Department Care Team (Late st Contact Info) Description 12/07/2024 8:00 AM EST Office Visit Family Practice [address] [place] [address] 293 [place] [address] Artemio Truong, 293 [place] [address] 12/08/2024 9:00 AM EST Anticoagulation Family Practice 65 [facility] 293 [place] [address] College, Pharmacist [address] [place] [address] 02/06/2025 8:00 AM EDT Office Visit Ophthalmology, [facility] 132 [facility] [place] [address] Brenden Ellis, [address] [place] [address] 03/07/2025 10:15 AM EDT Imaging Radiology [facility] 1st [facility] 132 [place] [phone] 08/14/2025 9:00 AM EST Imaging Radiology [facility] [address] [place] [phone] 08/31/2025 8:30 AM EST Office Visit Rheumatology [facility] [address] [place] [address] Iván Golden CRNP [address] [facility] [address] Health Maintenance Due Date Last Done Comments [...] D LEVEL ONCE IN A LIFETIME-USE SMARTSET# [id number] Completed 09/05/2024, 11/26/2021, 08/09/2021, Additional history exists [...] filedocumented as of this encounter Care Teams Hide Mill Man Relationship Specialty Start Date End Date Artemio Truong DO [address] [place] [address] PCP - General Internal Medicine 04/20/24 documented as of this encounter
--- OUTSIDE RECORDS SUMMARY | 2025-02-10 21:52 | External Medical Summary | Summary of Care ---
Author Name Unknown Organization [facility] Address [address] [place] [address] Phone [phone] Care Team Providers Care Wrecker Driver Name Role Phone Artemio Truong DO Primary Care Provider [phone] Encounter Details Date Type Department Care Team (Late st Contact Info) Description 12/05/2024 12:30 PM EST Scheduled Telephone Care Coordination and Integration [address] [place], [place] [phone] Mee Ford, Community Health Finished Cloth Examiner [address] [place], [place] [phone] Allergies No known active allergiesdocumented as of this encounter (statuses as of 12/05/2024) Medications Blood Glucose Monitoring Suppl (PersistIQTOUCH ULTRA 2) w/Device KITIndications:T ype 2 diabetes mellitus with hemoglobin A1c goal of less than 7.0% ([facility]) 12/16/19 19 Active acetaminophen (TYLENOL) [...] hemoglobin A1c goal of less than 7.0% ([facility]) Use to test once daily. [...] HTN Protocol #27. PMR (polymyalgia rheumatica) 01/10/2011 long-term current use of systemic steroids 01/10 long-term [...] EST Noted * Mee Ford, Community Health Finished Cloth Examiner - 12/05/2024 11:56 AM EST Telemedicine visit: No Community Health Finished Cloth Examiner (LAURA) documentation: This CHW placed #2 f/u [...] Health Worker 1 Support Services/[facility] [employer] Plan [email or web address] documented in this encounter Plan of Treatment Upcoming Encounters Date Type Department Care Team (Late st Contact Info) Description 12/07/2024 8:00 AM EST Office Visit Family Practice [address] [place] [address] 293 [facility] [address] Artemio Turong, 293 [place] [address] 12/08/2024 9:00 AM EST Anticoagulation Family Practice 65 [facility] 293 [place] [address] College, Pharmacist [address] [place] [address] 02/06/2025 8:00 AM EDT Office Visit Ophthalmology, [facility] 132 [facility] [place] [address] Brenden Ellis, [address] [place] [address] 03/07/2025 10:15 AM EDT Imaging Radiology [facility] 1st [facility] 132 [place] [phone] 08/14/2025 9:00 AM EST Imaging Radiology [facility] [address] [place] [phone] 08/31/2025 8:30 AM EST Office Visit Rheumatology [facility] [address] [place] [address] Iván Golden CRNP [address] [facility] [place] [address] Health Maintenance Due Date Last Done Comments [...] D LEVEL ONCE IN A LIFETIME-USE SMARTSET# [id number] Completed 09/05/2024, 11/26/2021, 08/09/2021, Additional history exists [...] filedocumented as of this encounter Care Teams Wrecker Driver Relationship Specialty Start Date End Date Artemio Truong DO [address] [place] [address] PCP - General Internal Medicine 04/20/24 documented as of this encounter
--- OUTSIDE RECORDS SUMMARY | 2025-02-10 21:52 | External Medical Summary | Summary of Care ---
Author Name Unknown Organization [facility] Address [address] [facility] [address] Phone [phone] Team Providers Care Drive Thru Order Taker Name Role Phone Artemio Truong DO Primary Care Provider [phone] Reason for Visit * Reason Comments Dosage Adjustment Via Phone (anticoag Cl inic) Encounter Details Date Type Department Care Team (Late st Contact Info) Description 12/08/2024 9:00 AM EST Anticoagulation Family Practice 65 [facility] 293 [place] [address] College, Pharmacist [address] [address] Anticoagulation management encounter*; Permanent atrial fibrillation (HCC) Allergies No known active [...] Delayed Release Particles (Cymbalta)Indica tions:Polymyalgi a rheumatica ([facility]) [...] HTN Protocol #27. 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 01/10 FDC [...] this encounter Progress Notes * Cecy Fallon, [facility] - 12/08/2024 9:00 AM EST Medication Therapy Disease Management - Anticoagulation Patient: Mitchel Mcpherson | : 1945 Subjective Contacts Contact Date/Time Type Contact Phone/Fax 12/08/2024 09:00 AM EST Phone (Outgoing) Mitchel Mcpherson "Eron" (Self) [phone] (H) Patient-Reported Symptoms: Objective Current Warfarin Dose As of 12/08/2024 Warfarin maintenance plan: 2.5 mg (5 mg x 0.5) every Mon, Wed, Fri; 5 mg (5 mg x 1) all other days INR Result As of 12/08/2024 INR goal: 2.0-3.0 INR used for dosin.6 (12/07/2024) Assessment & Plan Warfarin Plan As of 12/08/2024 Full warfarin instructions: 2.5 mg every Mon, Wed, Fri; 5 mg all other days No change documented: Cecy Fallon val Next INR check: 01/05/2025 Repeat PT/INR in 4 week(s) Weekly dose: not changed Additional Dosing Information: Description (Takes warfarin in AM) Faxed note to [facility] [(f) [phone], (p) [phone]] for fingerstick INR with next visit. Please draw venipuncture INR if fingerstick > 5. Dx: I48.21 - atrial fibrillation Provider: Artemio Truong DO Please call results to [phone]. I spent a total of 10-19 minutes (exact time 10 mins) on the date of service in preparation, delivery, and documentation of the care provided to Mitchel Mcpherson excluding any time spent in the performance of separately billed services or time spent by another provider/QHP. Cecy Amaya [facility] Clinical Pharmacist 12/08/2024, 9:00 AM documented in this encounter Plan of Treatment Upcoming Encounters Date Type Department Care Team (Late st Contact Info) Description 01/05/2025 8:00 AM EDT Anticoagulation Family Practice [address] [place] [address] 293 [place] [address] College, Pharmacist [address] [place] [address], [place] [address] 02/06/2025 8:00 AM EDT Office Visit Ophthalmology, [facility] [address] [place] [address] Brenden Ellis DO [address] [place] [address] 03/07/2025 10:15 AM EDT Imaging Radiology [address] [place] [address] 03/09/2025 8:40 AM EDT Office Visit Family Practice [address], [place] 293 [facility] [address] Artemio Truong, 293 [facility], [place] [address] 08/14/2025 9:00 AM EST Imaging Radiology [facility] [address] [place] [address] 08/31/2025 8:30 AM EST Office Visit Rheumatology [facility] [address] [place] [address] Iván Golden CRNP [address] [facility] [place] [address] Health Maintenance Due Date Last Done Comments [...] D LEVEL ONCE IN A LIFETIME-USE SMARTSET# [id number] Completed 09/05/2024, 11/26/2021, 08/09/2021, Additional history exists [...] as of this encounter Visit Diagnoses Diagnosis Anticoagulation management encounter- Primary Encounter for therapeutic drug monitoring Permanent atrial fibrillation (HCC) Atrial fibrillation documented in this encounter Care Teams Drive Thru Order Taker Relationship Specialty Start Date End Date Artemio Truong DO [address] [place] [address] PCP - General Internal Medicine 04/20/24 documented as of this encounter
--- OUTSIDE RECORDS SUMMARY | 2025-02-10 21:53 | External Medical Summary | Summary of Care ---
Author Name Unknown Organization [facility] Address [address] [place] [address] Phone [phone] Care Team Providers Care Scrap Crane Operator Name Role Phone Artemio Truong DO Primary Care Provider [phone] Reason for Visit * Reason Onset Date Comments Protime Testing 11/21/2024 Encounter Details Date Type Department Care Team (Late st Contact Info) Description 11/21/2024 Telephone Family Practice 65 [facility] 293 [place] [address] Artemio Truong DO 293 [place] [address] Protime Testing Allergies No known active allergiesdocumented as of this encounter (statuses as of 11/21/2024) Medications Blood Glucose Monitoring Suppl (ONETOUCH ULTRA 2) w/Device KITIndications:T ype 2 diabetes mellitus with hemoglobin A1c goal of less than 7.0% ([facility]) 12/16/19 19 Active acetaminophen (TYLENOL) 500 MG Tablet Take 1-2 Tablets by mouth every 6 hours as needed for Pain. Activ e Vitamin D3 50 MCG (1999 [place]) Oral Capsule Take 1 Capsule by mouth every evening. 30 Cap 5 08/11/20 21 Active OneTouch Ultra Blue In Vitro Strip (Glucose Blood)Indication s:Type 2 diabetes mellitus with hemoglobin A1c goal of less than 7.0% ([facility]) Use to test once daily. DX:E11.9 100 Strip 3 07/28/20 Active OskarTouch Delica Lancets 33G Use to test once [...] once a week. 2 mL 11 5 9:18 AM EST 09/15/20 24 Active Warfarin Sodium 5 MG Oral Tablet (Coumadin)Indica tions:Chronic atrial fibrillation (HCC) Take 1 tablet by mouth once daily or as directed by anticoagulation clinic 90 Tablet 3 10/21/19 25 Active Cefdinir 300 MG Oral Capsule (Omnicef) Take 1 Capsule by mouth in the morning and 1 Capsule before bedtime. X 2 days. 11/16/19 25 Active metroNIDAZOLE 500 MG Oral Tablet (Flagyl) Take 1 Tablet by mouth in the morning and 1 Tablet before bedtime. X 2 days. 11/16/19 25 Active Probiotic & Acidophilus Ex St Oral Capsule Take 1 Capsule by mouth in the morning. 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 Pharmacist note for instructions. Leila Morales, Pharm D, [facility] Clinical Pharmacist Princess Fortune 11/21/2024, 1:20 PM * Telephone Encounter - Lily Coelho LPN - 11/21/2024 12:24 PM EST [facility] calling with INR report. Pt's INR today: 2.4 documented in this encounter Plan of Treatment Upcoming Encounters Date Type Department Care Team (Late st Contact Info) Description 11/22/2024 9:40 AM EST Pharmacy Family Practice 65 [facility] 293 [facility] [address] College, Pharmacist [address], [place] [address] 11/22/2024 10:00 AM EST Office Visit Family Practice 65 [facility] 293 [facility] [address] Artemio Truong, 293 [facility] [address] 2024 1:00 PM EST Anticoagulation Family Practice 65 [facility] 293 [facility] [address] College, Pharmacist [address] [address] 02/06/2025 8:00 AM EDT Office Visit Ophthalmology, [facility] [address] [place] [address] Brenden Ellis, DO [address] [place] [address] 08/14/2025 9:00 AM EST Imaging Radiology [facility] [address] [place] [address] 08/31/2025 8:30 AM EST Office Visit Rheumatology [facility] [address] [place] [address] Iván Golden CRNP [address] [facility] [address] Health Maintenance Due Date Last Done Comments [...] D LEVEL ONCE IN A LIFETIME-USE SMARTSET# [id number] Completed 09/05/2024, 11/26/2021, 08/09/2021, Additional history exists [...] filedocumented as of this encounter Care Teams Scrap Crane Operator Relationship Specialty Start Date End Date Artemio Truong DO [address] [place] [address] PCP - General Internal Medicine 04/20/24 documented as of this encounter
--- OUTSIDE RECORDS SUMMARY | 2025-02-10 21:53 | External Medical Summary | Summary of Care ---
Author Name Unknown Organization [facility] Address [address] [place] [address] Phone [phone] Care Team Providers Care Safety Consultant Name Role Phone Artemio Truong DO Primary Care Provider [phone] Reason for Visit * Reason Comments Dosage Adjustment Via Phone (anticoag Cl inic) Encounter Details Date Type Department Care Team (Late st Contact Info) Description 11/21/2024 3:00 PM EST Anticoagulation Family Practice 65 [facility] 293 [place] [address] College, Pharmacist [address] [address] Anticoagulation management encounter*; Permanent atrial fibrillation (HCC) Allergies No known active allergiesdocumented as of this encounter (statuses as of 11/21/2024) Medications Blood Glucose Monitoring Suppl (Greengro TechnologiesUCH ULTRA 2) w/Device KITIndications:T ype 2 diabetes [...] 7.0% ([facility]) TAKE ONE TABLET BY MOUTH TWICE A [...] Delayed Release Particles (Cymbalta)Indica tions:Polymyalgi a rheumatica ([facility]) TAKE ONE CAPSULE BY MOUTH EVERY DAY. [...] MG Oral Tablet (Deltasone)Indic ations:PMR (polymyalgia rheumatica) ([facility]) TAKE ONE TABLET BY MOUTH EVERY MORNING [...] HTN Protocol #27. 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 (Household - for [...] as of this encounter Progress Notes * Leila Morales, [facility] - 11/21/2024 1:15 PM EST Medication Therapy Disease Management - Anticoagulation Patient: Mitchel Mcpherson | : 1945 Subjective Contacts Contact Date/Time Type Contact Phone/Fax 11/21/2024 01:16 PM EST Phone (Outgoing) Mitchel Mcpherson "Eron" (Self) [phone] (H) Patient-Reported Symptoms: Patient Findings Negatives: Signs/symptoms of thrombosis, Signs/symptoms of bleeding, Change in health, Change in alcohol use, Change in activity, Upcoming invasive procedure, Missed doses, Extra doses, Change in medications, Change in diet/appetite, Bruising Objective Current Warfarin Dose As of 11/21/2024 Warfarin maintenance plan: 2.5 mg (5 mg x 0.5) every Mon, Wed, Fri; 5 mg (5 mg x 1) all other days INR Result As of 11/21/2024 INR goal: 2.0-3.0 INR used for dosin.4 (11/21/2024) Assessment & Plan Warfarin Plan As of 11/21/2024 Full warfarin instructions: 2.5 mg every Mon, Wed, Fri; 5 mg all other days No change documented: Leila Morales RPh Next INR check: 2024 Repeat PT/INR in 1 week(s) Weekly dose: not changed Additional Dosing Information: Description (Takes warfarin in AM) Faxed note to [facility] [(f) [phone], (p) [phone]] for fingerstick INR with next visit. Please draw venipuncture INR if fingerstick > 5. Dx: I48.21 - atrial fibrillation Provider: Artemio Truong DO Please call results to [phone]. I spent a total of 10-19 minutes (exact time 10 mins) on the date of service in preparation, delivery, and documentation of the care provided to Mitchel Mcpherson excluding any time spent in the performance of separately billed services or time spent by another provider/QHP. Leila Morales RPh Clinical Pharmacist 11/21/2024, 1:15 PM documented in this encounter Plan of Treatment Upcoming Encounters Date Type Department Care Team (Late st Contact Info) Description 11/22/2024 9:40 AM EST Pharmacy Family Practice 65 [facility] 293 [facility] [place] [address] College, Pharmacist [address] [place] [address] 11/22/2024 10:00 AM EST Office Visit Family Practice 65 [facility] 293 [facility] [address] Artemio Truong DO 293 [place] [address] 2024 1:00 PM EST Anticoagulation Family Practice [address], [place] 293 [facility] [address] College, Pharmacist 65 [facility] 293 [place] [facility] [address] 02/06/2025 8:00 AM EDT Office Visit Ophthalmology, [facility] [address] [place] [address] Brenden Ellis, DO [address] [place] [address] 08/14/2025 9:00 AM EST Imaging Radiology [facility] [address] [place] [phone] 08/31/2025 8:30 AM EST Office Visit Rheumatology [facility] 132 [facility] [place] [phone] Iván Golden CRNP [address] [facility] [address] Health Maintenance Due Date Last Done Comments [...] D LEVEL ONCE IN A LIFETIME-USE SMARTSET# [id number] Completed 09/05/2024, 11/26/2021, 08/09/2021, Additional history exists [...] Procedure Name Priority Date/Time Associated Diagnosis Comments OUTSIDE LAB-PT/INR Routine 11/21/2024 documented in this encounter Results * OUTSIDE LAB-PT/INR (11/21/2024) INR-OUTSIDE LAB 2.4 [place] 11/21/2024 us History Per Patient LABORATORY Final Result [facility] [address] [place] [address] documented in this encounter Visit Diagnoses Diagnosis Anticoagulation management encounter- Primary Encounter for therapeutic drug monitoring Permanent atrial fibrillation (HCC) Atrial fibrillation documented in this encounter Care Teams Safety Consultant Relationship Specialty Start Date End Date Artemio Truong DO [address] [place] [address] PCP - General Internal Medicine 04/20/24 documented as of this encounter
--- OUTSIDE RECORDS SUMMARY | 2025-02-10 21:53 | External Medical Summary | Summary of Care ---
Author Name Unknown Organization [facility] Address [address] [place] [address] Phone [phone] Care Team Providers Care Rotary Pump Operator Name Role Phone Artemio Truong DO Primary Care Provider [phone] Reason for Visit * Reason Onset Date Comments Pro Time Results 2024 Encounter Details Date Type Department Care Team (Late st Contact Info) Description 2024 Telephone Family Practice 65 [facility] [place] 293 [place] [address] Artemio Truong DO 293 [place] [address] Pro Time Results Allergies No known active allergiesdocumented as of this encounter (statuses as of 2024) Medications Blood Glucose Monitoring Suppl (ONETOUCH ULTRA 2) w/Device KITIndications:T ype 2 diabetes mellitus with hemoglobin A1c goal of less than 7.0% ([facility]) 12/16/19 19 Active acetaminophen (TYLENOL) 500 MG Tablet Take 1-2 Tablets by mouth every 6 hours as needed for Pain. Activ e Vitamin D3 50 MCG (1999 CT) Oral Capsule Take 1 Capsule by mouth every evening. (Gummy) 30 Cap 5 08/11/20 21 Active OneTouch Ultra Blue In Vitro Strip (Glucose Blood)Indication s:Type 2 diabetes mellitus with hemoglobin A1c goal of less than 7.0% ([facility]) Use to test once daily. 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 Type 2 diabetes, HbA1C goal < 8% 07/26/2009 Overview (02/05/2016): Modified per Diabetes protocol #14. ICD-10 update of inactive term Permanent atrial fibrillation 10/19/2008 documented as of this encounter (statuses as of 2024) Resolved Problems Problem Noted Date Diagnosed Date [...] as of this encounter (statuses as of 2024) Immunizations Name Administration Dates Next Due COVID-19 [...] encounter Miscellaneous Notes * Telephone Encounter - Lata Calle RPh - 2024 1:26 PM EST Noted. Pharmacist will address in separate anticoagulation encounter * Telephone Encounter - Lily Coelho LPN - 2024 1:10 PM EST BLESSING Aquino from [facility], calling in regarding PT/INR results. PT: 25.4 INR: 2.1 documented in this encounter Plan of Treatment Upcoming Encounters Date Type Department Care Team (Late st Contact Info) Description 12/07/2024 8:00 AM EST Office Visit Family Practice [address], [place] 293 [place] [address] Artemio Troung, DO 293 [place] [address] 12/08/2024 9:00 AM EST Anticoagulation Family Practice [address], [place] 293 [place] [address] College, Pharmacist [address] [facility] 293 [place] [address] 02/06/2025 8:00 AM EDT Office Visit Ophthalmology, [facility] 132 [facility] [place] [address] Brenden Ellis, DO 132 [facility] [place] [address] 03/07/2025 10:15 AM EDT [facility] 132 [facility] [place] [address] 08/14/2025 9:00 AM EST Imaging Radiology [facility] 132 [facility] [place] [address] 08/31/2025 8:30 AM EST Office Visit Rheumatology [facility] 132 [facility] [place] [address] Iván Golden CRNP [address] [facility] [address] Health Maintenance Due Date Last Done Comments [...] D LEVEL ONCE IN A LIFETIME-USE SMARTSET# [id number] Completed 09/05/2024, 11/26/2021, 08/09/2021, Additional history exists [...] filedocumented as of this encounter Care Teams Rotary Pump Operator Relationship Specialty Start Date End Date Artemio Truong DO [address] [place] [address] PCP - General Internal Medicine 04/20/24 documented as of this encounter
--- OUTSIDE RECORDS SUMMARY | 2025-02-10 21:53 | External Medical Summary | Summary of Care ---
Author Name Unknown Organization [facility] Address [address] [place] [address] Phone [phone] Care Team Providers Care River Rafting Guide Name Role Phone Artemio Truong DO Primary Care Provider [phone] Reason for Visit * Reason Onset Date Comments Hospital Follow-Up 11/17/2024 Encounter Details Date Type Department Care Team (Late st Contact Info) Description 11/17/2024 11:00 AM EST Scheduled Telephone Family Practice 65 [facility] [place] [address] [place] [address] Carol Prieto RN 293 [place] [address] Allergies No known active allergiesdocumented as of this encounter (statuses as of 11/17/2024) Medications Blood Glucose Monitoring Suppl (ONETOUCH ULTRA 2) w/Device KITIndications:T ype 2 diabetes mellitus with hemoglobin A1c goal of less than 7.0% ([facility]) 12/16/19 19 Active acetaminophen (TYLENOL) [...] hemoglobin A1c goal of less than 7.0% ([facility]) Use to test once daily. DX:E11.9 100 Strip 3 10/17/20 22 Active OskarTouch Bassem Lancets 33G Use to test once daily. 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 * Telephone Encounter - Carol Prieto RN - 11/17/2024 11:28 AM EST Front office-please call pt to schedule a hospital discharge f/u-thank you LUCRECIA #1 Phone visit for post hospital d/c [facility] Dx: Sepsis, aspiration Dates of stay: 11/06/[id number] Current Concerns/Problems: pt sleeping, spoke with . State he is doing ok just really weak/tired. He has a dry cough. Not really sob-had walking test done prior to leaving hospital and did not need O2. Denies any chest pain. He does have some loose stools-told to monitor and if worsens he needsto reach out- emphasized importance of the probiotic d/t to his antibiotic therapy. If diarrhea worsens needs to call office. Had a slight headache prior to him napping. Told can use the tylenol and to make sure he is hydrating. Appetite is fair-discussed small frequent meals. Pt is drinking BOOST. Home health was to come today but cancelled d/t weather-will either come tomorrow or Thursday for PT. CV/PULM: Reports: Dry cough Fever? no Shortness of breath? no Chest Pain? no Appetite: Appetite fair Nausea/Vomiting/Diarrhea? Diarrhea/loose stools-see above Dizziness/Lightheadedness? no Sleep: pt was up frequently last PM going to the bathroom. Elimination: Diarrhea Pain: Denies Wound: Denies Mobility: No restrictions Vitals: n/a Weight: n/a D/C Instructions received and understood? Yes Medications Reviewed? yes Medications Changes during hospitalization: NEW: advanced Probiotic 625 mg capsule 1 capsule daily Cefdinir 300 mg bid x 2 days Metronidazole 500 mg bid x 2 days R/X Obtained: Yes Post hospital appt scheduled: No will have front line supervisor call pt to schedule. Other Services/Equipment Coordinated: Yes - [facility] Patient Education: Is patient care managed? yes Care Management referral placed? no CM needs: Does the patient have adequate food, water and mcc? yes I reinforced how to reach [address] triage after hours, weekends and holidays by calling clinic phone # documented in this encounter Plan of Treatment Upcoming Encounters Date Type Department Care Team (Late st Contact Info) Description 11/22/2024 9:40 AM EST Pharmacy Family Practice 65 [facility] 293 [place] [address] College, Pharmacist [address] [place] [address] 11/22/2024 10:00 AM EST Office Visit Family Practice 65 [facility] 293 [facility] [address] [facility]io Truong[facility] [address] 02/06/2025 8:00 AM EDT Office Visit Ophthalmology, [facility] [address] [address] Brenden Ellis DO [address] [place] [address] 08/14/2025 9:00 AM EST Imaging Radiology [facility] [address] [place] [phone] 08/31/2025 8:30 AM EST Office Visit Rheumatology [facility] [address] [place] [address] Iván Golden CRNP [facility] [place] [address] Health Maintenance Due Date Last Done Comments [...] D LEVEL ONCE IN A LIFETIME-USE SMARTSET# [id number] Completed 09/05/2024, 11/26/2021, 08/09/2021, Additional history exists [...] filedocumented as of this encounter Care Teams River Rafting Guide Relationship Specialty Start Date End Date Artemio Truong DO [address] [place] [address] PCP - General Internal Medicine 04/20/24 documented as of this encounter
--- OUTSIDE RECORDS SUMMARY | 2025-02-10 21:53 | External Medical Summary | Summary of Care ---
Author Name Unknown Organization [facility] Address [address] [place] [place] [address] Phone [phone] Care Team Providers Care Behavioral Intervention Specialist Name Role Phone Artemio Truong DO Primary Care Provider Reason for Visit * Reason Comments Dosage Adjustment Via Phone (anticoag Cl inic) Encounter Details Date Type Department Care Team (Late st Contact Info) Description 11/18/2024 3:00 PM EST Anticoagulation Family Practice 65 [facility] 293 [place] [phone] College, Pharmacist [address] [address] Anticoagulation management encounter*; Permanent atrial fibrillation (HCC) Allergies No known active allergiesdocumented as of this encounter (statuses as of 11/19/2024) Medications Blood Glucose Monitoring Suppl (The Start ProjectUCH ULTRA 2) w/Device KITIndications:T ype 2 diabetes mellitus with hemoglobin A1c goal of less than 7.0% ([facility]) 12/16/19 19 Active acetaminophen (TYLENOL) 500 [...] Delayed Release Particles (Cymbalta)Indica tions:Polymyalgi a rheumatica ([facility]) TAKE ONE CAPSULE BY MOUTH EVERY [...] MG Oral Tablet (Deltasone)Indic ations:PMR (polymyalgia rheumatica) ([facility]) TAKE ONE TABLET BY MOUTH EVERY [...] as of this encounter (statuses as of 11/19/2024) Active Problems Problem Noted Date Diagnosed Date Other male erectile dysfunction 06/23/2023 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 Type 2 diabetes, HbA1C goal < 8% 07/26/2009 Overview (02/05/2016): Modified per Diabetes protocol #14. ICD-10 update of inactive term Permanent atrial fibrillation 10/19/2008 documented as of this encounter (statuses as of 11/19/2024) Resolved Problems Problem Noted Date Diagnosed Date [...] as of this encounter (statuses as of 11/19/2024) Immunizations Name Administration Dates Next Due COVID-19 [...] No 11/18/2024 Does the household have a [facility] source of income? (Household - for [...] Progress Notes * Crystal Roche, Cecy Mitchell, [facility] - 11/18/2024 5:08 PM EST Medication Therapy Disease Management - Anticoagulation Patient: Mitchel Mcpherson | : 1945 Subjective Patient-Reported Symptoms: Patient Findings Positives: Change in medications (had been on metronidazole for 2 days post discharge (completed today)), Hospital admission (discharged 11/16/24) Comments: [facility] was to get INR on 11/17, however their visit was cancelled due to the weather and rescheduled for 11/21. Objective Current Warfarin Dose As of 11/18/2024 Warfarin maintenance plan: 2.5 mg (5 mg x 0.5) every Mon, Wed, Fri; 5 mg (5 mg x 1) all other days INR Result As of 11/18/2024 INR goal: 2.0-3.0 INR used for dosin.8 (11/16/2024) Assessment & Plan Warfarin Plan As of 11/18/2024 Full warfarin instructions: 2.5 mg every Mon, Wed, Fri; 5 mg all other days No change documented: Cecy Fallon [facility] Next INR check: 11/21/2024 Repeat [facility] 3 [facility] Weekly dose: not changed Additional Dosing Information: Description (Takes warfarin in AM) Faxed note to [facility] [(f) [phone], (p) [phone]] for fingerstick INR with next visit. Please draw venipuncture INR if fingerstick > 5. Dx: I48.21 - atrial fibrillation Provider: Artemio Truong, Please call results to [phone]. I spent a total of 10-19 minutes (exact time 15 mins) on the date of service in preparation, delivery, and documentation of the care provided to Mitchel Mcpherson excluding any time spent in the performance of separately billed services or time spent by another provider/QHP. Cecy Amaya [facility] Clinical Pharmacist 11/18/2024, 5:08 PM documented in this encounter Plan of Treatment Upcoming Encounters Date Type Department Care Team (Late st Contact Info) Description 11/21/2024 3:00 PM EST Anticoagulation Family Practice 65 [facility] 293 [facility] [address] College, Pharmacist [address], [place] [address] 11/22/2024 9:40 AM EST Pharmacy Family Practice 65 [facility] [place] 293 [facility] [address] College, Pharmacist [address], [place] [address] 11/22/2024 10:00 AM EST Office Visit Family Practice [address] [facility] [place] 293 [place] [address] Artemio Truong, DO 293 [place] [address] 02/06/2025 8:00 AM EDT Office Visit Ophthalmology, [facility] [address] [facility] [place] [address] Brenden Ellis, DO [address] [place] [address] 08/14/2025 9:00 AM EST Imaging Radiology [facility] [address] [place] [phone] 08/31/2025 8:30 AM EST Office Visit Rheumat[facility] [place] [phone] Iván Golden CRNP [address] [facility] [place], [place] [address] Health Maintenance Due Date Last Done Comments [...] D LEVEL ONCE IN A LIFETIME-USE SMARTSET# [id number] Completed 09/05/2024, 11/26/2021, 08/09/2021, Additional history exists [...] Date/Time Associated Diagnosis Comments OUTSIDE LAB-PT/INR Routine 11/16/2024 documented in this encounter Results * OUTSIDE LAB-PT/INR (11/16/2024) INR-OUTSIDE LAB 2.8 2 - 3 [place] 11/16/2024 us History Per Patient LABORATORY Final Result [facility] [address] [place] [address] documented in this encounter Visit Diagnoses Diagnosis Anticoagulation management encounter- Primary Encounter for therapeutic drug monitoring Permanent atrial fibrillation (HCC) Atrial fibrillation documented in this encounter Care Teams Behavioral Intervention Specialist Relationship Specialty Start Date End Date Artemio Truong DO [address] [facility] [place] [address] PCP - General Internal Medicine 04/20/24 documented as of this encounter"
--- OUTSIDE RECORDS SUMMARY | 2025-02-10 21:53 | External Medical Summary | Summary of Care ---
Author Name Unknown Organization [facility] Address [address] [place] [address] Phone [phone] Care Team Providers Care Director Data Management Name Role Phone Artemio Truong DO Primary Care Provider [phone] Reason for Visit * Reason Onset Date Comments Hospital Follow-Up 11/17/2024 Encounter Details Date Type Department Care Team (Late st Contact Info) Description 11/17/2024 11:00 AM EST Scheduled Telephone Family Practice 65 [facility] [place] [address] [place] [address] Carol Prieto RN 293 [place] [address] Allergies No known active allergiesdocumented as of this encounter (statuses as of 11/17/2024) Medications Blood Glucose Monitoring Suppl (ONETOUCH ULTRA 2) w/Device KITIndications:T ype 2 diabetes mellitus with hemoglobin A1c goal of less than 7.0% ([facility]) 12/16/19 19 Active acetaminophen (TYLENOL) [...] goal of less than 7.0% ([facility]) Use to test once daily. [...] goal of less than 7.0% ([facility]) TAKE TWO TABLETS BY MOUTH [...] HTN Protocol #27. 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 Other Services/Equipment Coordinated: Yes - [facility] Patient Education: Is patient care managed? yes Care Management referral placed? no CM needs: Does the patient have adequate food, water and half-way? yes I reinforced how to reach [address] triage after hours, weekends and holidays by calling clinic phone # documented in this encounter Plan of Treatment Upcoming Encounters Date Type Department Care Team (Late st Contact Info) Description 11/22/2024 9:40 AM EST Pharmacy Family Practice 65 [facility] 293 [facility] [place] [address] College, Pharmacist [address] [place] [address] 11/22/2024 10:00 AM EST Office Visit Family Practice 65 [facility] 293 [facility] [address] [facility]io Truong, [facility] [address] 02/06/2025 8:00 AM EDT Office Visit Ophthalmology, [facility] [address] [address] Brenden Ellis DO [address] [place] [address] 08/14/2025 9:00 AM EST Imaging Radiology [facility] [address] [place] [phone] 08/31/2025 8:30 AM EST Office Visit Rheumatology [facility] [address] [place] [phone] Iván Golden CRNP [facility] [place] [address] Health Maintenance Due Date Last Done Comments [...] D LEVEL ONCE IN A LIFETIME-USE SMARTSET# [id number] Completed 09/05/2024, 11/26/2021, 08/09/2021, Additional history exists [...] filedocumented as of this encounter Care Teams Director Data Management Relationship Specialty Start Date End Date Artemio Truong DO [address] [place] [facility] [place] [address] PCP - General Internal Medicine 04/20/24 documented as of this encounter
--- OUTSIDE RECORDS SUMMARY | 2025-02-10 21:53 | External Medical Summary | Summary of Care ---
Author Name Unknown Organization [facility] Address [address] [place] [address] Phone [phone] Care Team Providers Care Micromatic Hone Operator Name Role Phone Artemio Truong DO Primary Care Provider [phone] Reason for Visit * Reason Comments Dosage Adjustment In Person (Anticoag Cl inic) Follow Up Encounter Details Date Type Department Care Team (Late st Contact Info) Description 11/22/2024 9:40 AM EST Pharmacy Family Practice [address] [address] [place], Pharmacist [address] [address] Medication management* Allergies No known active allergiesdocumented as of this encounter (statuses as of 11/25/2024) Medications Blood Glucose Monitoring Suppl (MechanologyTOUCH ULTRA 2) w/Device KITIndications: Type 2 diabetes mellitus with hemoglobin A1c goal of less than 7.0% ([facility]) 12/16/19 19 Active acetaminophen (TYLENOL) [...] goal of less than 7.0% ([facility]) Use to test once daily. [...] mouth in the morning. 11/16/19 25 Active Cefdinir 300 MG Oral Capsule (Omnicef) Take 1 Capsule by mouth in the morning and 1 Capsule before bedtime. X 2 days. 11/16/19 25 025 Discontin ued(Medic ation List Clean Up) metroNIDAZOLE 500 MG Oral Tablet (Flagyl) Take 1 Tablet by mouth in the morning and 1 Tablet before bedtime. X 2 days. 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 Type 2 diabetes, HbA1C goal < 8% 07/26/2009 Overview (02/05/2016): Modified per Diabetes protocol #14. ICD-10 update of inactive term Permanent atrial fibrillation 10/19/2008 documented as of this encounter (statuses as of 11/25/2024) Resolved Problems Problem Noted Date Diagnosed Date [...] as of this encounter (statuses as of 11/25/2024) Immunizations Name Administration Dates Next Due COVID-19 [...] this encounter Progress Notes * Cecy Fallon, [facility] - 11/22/2024 9:35 AM EST Medication Therapy Disease Management Clinic - Medication Reconciliation Encounter Type: discussed with patient Med Bottles Available for Review: no Med Rec Reason: Transition of Care Date of Admission: 11/06/24 - [facility] Date of Discharge: 11/16/24 Reason for Admission: Flu A, aspiration, ARF Medication changes during admission/on discharge: Added: cedfinir 300mg BID and metronidazole 500mg BID for 2 days each, probiotic Modified: none Discontinued: none Does the patient currently have all of their medications in their home? Yes Reports eating fairly well - Oatmeal for breakfast, Salads for lunch Dinners - Beef, mashed potatoes, noodles; Chicken pot pie ; Veal parm Drinks - Eleni mist regular, coffee, water [x] Preferred pharmacy reviewed/updated [x] Problem list reviewed [x] Allergies reviewed and updated if needed [x] Drug interaction check completed [x] HEDIS list addressed Immunizations indicated: Up to date Labs/Vitals/Risk Scores: The ASCVD Risk score (Juan Manuel RODRIGUEZ, et al., 2019) failed to calculate for the following reasons: The 2019 ASCVD risk score is only valid for ages 40 to 79 BP Readings from Last 3 Encounters: 07/12/24 116/84 03/10/24 140/70 11/03/23 114/66 Recent Labs Units 11/07/24 0000 07/12/24 0844 03/10/24 0853 HEMOGLOBIN A1C - [facility] % -- 8.1* 8.3* HEMOGLOBIN, [id number] LAB 8.1* -- -- Recent Labs Units 09/05/24 1135 11/03/23 0905 01/08/23 1057 ESTIMATED GLOMERULAR FILTRATION RATE - [facility] mL/min 73 79 72 Serum creatinine: 1 mg/dL 09/05/24 1135 Estimated creatinine clearance: 60.8 mL/min Assessment: Medication discrepancies identified: none Dose/frequency of medications appropriate for current renal function? yes Other medication problems identified: A1c greater than goal - will continue to follow with patient following discharge. Asked patient to check sugars daily. Plan: Immunizations facilitated: None Patient education provided: regarding importance of eating/drinking, prioritize protein, and checking sugars. Referral pended for follow up management of: N/A Medication recommendations: no change - INR via [facility] I spent a total of 20-29 minutes (exact time 22 mins) on the date of service in preparation, delivery, and documentation of the care provided to Mitchel Mcpherson excluding any time spent in the performance of separately billed services or time spent by another provider/QHP. Cecy Amaya [facility] Clinical Pharmacist - Database Programmer Analyst Medication Therapy Management Clinic 11/22/2024, 9:36 AM documented in this encounter Plan of Treatment Upcoming Encounters Date Type Department Care Team (Late st Contact Info) Description 2024 1:00 PM EST Anticoagulation Family Practice 65 [facility] 293 [facility] [address] College, Pharmacist [address], [place] [address] 12/07/2024 8:00 AM EST Office Visit Family Practice [address] [place] [address] 293 [facility], [place] [address] Artemio Truong, DO 293 [facility] [address] 02/06/2025 8:00 AM EDT Office Visit Ophthalmology, [facility] [address] [place] [address] Brenden Ellis, DO 132 [facility] [place] [address] 03/07/2025 10:15 AM EDT Imaging Radiology [facility] 1st Floor, [place] [address] [place] [address] 08/14/2025 9:00 AM EST Imaging Radiology [facility] [address] [place] [address] 08/31/2025 8:30 AM EST Office Visit Rheumatology [facility] [address] [place] [address] Iván Golden CRNP [address] [facility] [address] Health Maintenance Due Date Last Done Comments [...] D LEVEL ONCE IN A LIFETIME-USE SMARTSET# [id number] Completed 09/05/2024, 11/26/2021, 08/09/2021, Additional history exists [...] Procedure Name Priority Date/Time Associated Diagnosis Comments HEMOGLOBIN A1C Routine 11/07/2024 documented in this encounter Results * (ABNORMAL) HEMOGLOBIN A1C (11/07/2024) HEMOGLOBIN, [id number] LAB 8.1(H) Blood Venous blood specimen / Unknown 11/07/2024 us History Per Patient LAB BLOOD ORDERABLES Final R esult documented in this encounter Visit Diagnoses Diagnosis Medication management- Primary Encounter for long-term (current) use of other medications documented in this encounter Care Teams Micromatic Hone Operator Relationship Specialty Start Date End Date Artemio Truong DO [address] [place] [address] PCP - General Internal Medicine 04/20/24 documented as of this encounter
--- OUTSIDE RECORDS SUMMARY | 2025-02-10 21:53 | External Medical Summary | Summary of Care ---
Author Name Unknown Organization [facility] Address [address] [facility] [address] Phone [phone] Care Team Providers Care Chemical Dependency Professional Name Role Phone Artemio Truong DO Primary Care Provider [phone] Reason for Visit * Reason Comments Dosage Adjustment Via Phone (anticoag Cl inic) Encounter Details Date Type Department Care Team (Late st Contact Info) Description 2024 1:00 PM EST Anticoagulation Family Practice 65 [facility] 293 [place] [phone] College, Pharmacist [address] [address] Anticoagulation management encounter*; Chronic atrial fibrillation (HCC) Allergies No known active allergiesdocumented as of this encounter (statuses as of 2024) Medications Blood Glucose Monitoring Suppl (ONETOUCH ULTRA 2) w/Device KITIndications:T ype 2 diabetes mellitus with hemoglobin A1c goal of less than 7.0% ([facility]) 12/16/19 19 Active acetaminophen (TYLENOL) 500 MG Tablet Take 1-2 Tablets by mouth every 6 hours as needed for Pain. Activ e Vitamin D3 50 MCG (1999) Oral Capsule Take 1 Capsule by mouth every evening. (Gummy) 30 Cap 5 08/11/20 21 Active OneTouch Ultra Blue In Vitro Strip (Glucose Blood)Indication s:Type 2 diabetes mellitus with hemoglobin A1c goal of less than 7.0% ([facility]) Use to test once daily. DX:E11.9 [...] hemoglobin A1c goal of less than 7.0% ([facility]) TAKE ONE TABLET BY MOUTH TWICE [...] hemoglobin A1c goal of less than 7.0% ([facility]) TAKE TWO TABLETS BY MOUTH WITH BREAKFAST, ONE TABLET WITH LUNCH AND ONE TABLET WITH DINNER 360 Tablet 3 03/18/20 24 025 Active Additional Information Patient taking differently: 10 mg, Two in the morning and one with dinner, Reported on 11/22/2024 DULoxetine HCl 20 MG Oral Capsule Delayed Release Particles (Cymbalta)Indica tions:Polymyalgi a rheumatica ([facility]) TAKE ONE CAPSULE BY MOUTH EVERY DAY. [...] MG Oral Tablet (Deltasone)Indic ations:PMR (polymyalgia rheumatica) ([facility]) TAKE ONE TABLET BY MOUTH EVERY [...] HTN Protocol #27. 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/10 termite technician current use of anticoagulant therapy 0 [...] as of this encounter Progress Notes * Lata Calle, [facility] - 2024 1:26 PM EST Medication Therapy Disease Management - Anticoagulation Patient: Mitchel Mcpherson | : 1945 Subjective Contacts Contact Date/Time Type Contact Phone/Fax 2024 01:33 PM EST Phone (Outgoing) Mitchel Mcpherson "Eron" (Self) [phone] (H) Spoke to Patient Patient-Reported Symptoms: Patient Findings Negatives: Signs/symptoms of thrombosis, Signs/symptoms of bleeding, Change in health, Change in alcohol use, Change in activity, Upcoming invasive procedure, Missed doses, Extra doses, Change in medications, Change in diet/appetite, Bruising Objective Current Warfarin Dose As of 2024 Warfarin maintenance plan: 2.5 mg (5 mg x 0.5) every Mon, Wed, Fri; 5 mg (5 mg x 1) all other days INR Result As of 2024 INR goal: 2.0-3.0 INR used for dosin.1 (2024) Assessment & Plan Warfarin Plan As of 2024 Full warfarin instructions: 2.5 mg every Mon, Wed, Fri; 5 mg all other days No change documented: Lata Calle [facility] Next INR check: 12/07/2024 Repeat PT/INR in 10 day(s) (match with PCP visit- pharmacist unavailable that day so will ask nursing staff to draw) Weekly dose: not changed Additional Dosing Information: Description (Takes warfarin in AM) Faxed note to [facility] [(f) [phone], (p) [phone]] for fingerstick INR with next visit. Please draw venipuncture INR if fingerstick > 5. Dx: I48.21 - atrial fibrillation Provider: Artemio Truong DO Please call results to [phone]. I spent a total of 10-19 minutes (exact time 10 mins) on the date of service in preparation, delivery, and documentation of the care provided to Mitchel Mcpherson excluding any time spent in the performance of separately billed services or time spent by another provider/QHP. Lata Calle [facility] Clinical Pharmacist 2024, 1:33 PM documented in this encounter Plan of Treatment Upcoming Encounters Date Type Department Care Team (Late st Contact Info) Description 12/07/2024 8:00 AM EST Office Visit Family Practice 65 [facility] 293 [place] [phone] Artemio Truong DO 293 [facility] [place] [address] 12/08/2024 9:00 AM EST Anticoagulation Family Practice 65 [facility] [place] 293 [facility], [place] [phone] College, Pharmacist [address], [place] [address] 02/06/2025 8:00 AM EDT Office Visit Ophthalmology, [facility] [address] [place] [address] Brenden Ellis, [address] [place] [address] 03/07/2025 10:15 AM EDT Imaging Radiology [facility] 1st Floor, [place] [address] [place] [phone] 08/14/2025 9:00 AM EST Imaging Radiology [facility] [address] [place] [phone] 08/31/2025 8:30 AM EST Office Visit Rheumatology [facility] [address] [place] [phone] Iván Golden CRNP [facility] [place] [address] Health Maintenance Due Date Last Done Comments Adult Wellness Visit 03/31/2015 03/31/2014 Diabetic Eye Exam 11/23/2024 11/23/2023, , 11/23/2023, Additional history exists B-12 12/01/2024 12/01/2023, 10/13, 01/08/2023, Additional history exists COVID-19 Vaccine ( season) 2025 07/12/2024, 08/03/2023, 08/05/2022, Additional history exists HbA1c 05/07/2025 11/07/2024, 10/10/2023, 03/10/2024, Additional history exists Albumin/Creatinine Ratio 07/12/2025 [...] D LEVEL ONCE IN A LIFETIME-USE SMARTSET# [id number] Completed 09/05/2024, 11/26/2021, 08/09/2021, Additional history exists [...] Date/Time Associated Diagnosis Comments OUTSIDE LAB-PT/INR Routine 2024 documented in this encounter Results * OUTSIDE LAB-PT/INR (2024) INR-OUTSIDE LAB 2.1 [place] 2024 us History Per Patient LABORATORY Final Result [facility] [address] [place] [address] documented in this encounter Visit Diagnoses Diagnosis Anticoagulation management encounter- Primary Encounter for therapeutic drug monitoring Chronic atrial fibrillation (HCC) Atrial fibrillation documented in this encounter Care Teams Chemical Dependency Professional Relationship Specialty Start Date End Date Artemio Truong DO [address] [place] [address] PCP - General Internal Medicine 04/20/24 documented as of this encounter
--- OUTSIDE RECORDS SUMMARY | 2025-02-10 21:53 | External Medical Summary | Summary of Care ---
Author Name Unknown Organization [facility] Address [address] [place] [address] Phone [phone] Care Team Providers Care Bereavement Program Coordinator Name Role Phone Artemio Truong DO Primary Care Provider [phone] Reason for Referral * Precert (Within 10 days (routine)) - Authorized Specialty Diagnoses / Procedures Referred By Contac t Referred To Contact Radiology Diagnoses Aspiration pneumonia of right lower lobe due to gastric secretions (HCC) Procedures CT CHEST WO CONTRAST Artemio Truong DO [address] [place] [address] Phone: tel: fax: Referral ID Status Reason Start Date Expiration Date V isits Requested Visits Authorized [id number] Authorized 02/19/2025 999 999 Reason for Visit * Reason Onset Date Comments Hospital Follow-Up Hospital Follow-Up 11/22/2024 Encounter Details Date Type Department Care Team (Latest Contact Info) Description 11/22/2024 10:00 AM EST Office Visit Family Practice [facility], [place] [address] [place] [address] Artemio Truong DO [address] [place] [address] Aspiration pneumonia of right lower lobe due to gastric secretions (HCC)*; Influenza A; Physical deconditioning; Metabolic encephalopathy; SARWAT (acute kidney injury) (HCC); Steroid-induced osteoporosis; Dyslipidemia, goal LDL below 100; Moderate nonproliferative diabetic retinopathy of both eyes with macular edema associated with type 2 diabetes mellitus ([facility]); HTN, goal below 140/90; custodial current use of systemic steroids; Permanent atrial fibrillation ([facility]); PMR (polymyalgia rheumatica) ([facility]); Type 2 diabetes, HbA1C goal < 8% ([facility]); Diarrhea of presumed infectious origin; Hospital discharge follow-up Allergies No known active allergiesdocumented as of this encounter (statuses as of 11/22/2024) Medications Blood Glucose Monitoring Suppl (FinancetesetudesTOUCH ULTRA 2) w/Device KITIndications:T ype 2 diabetes mellitus with hemoglobin A1c goal of less than 7.0% ([facility]) 12/16/19 19 Active acetaminophen (TYLENOL) [...] A1c goal of less than 7.0% ([facility]) Use to test once daily. DX:E11.9 100 Strip 3 07/28/20 22 Active Kunshan RiboQuark Pharmaceutical TechnologyTouch Delica Lancets 33G Use to test once daily. DX: E11.9 100 Each 3 07/28/20 22 Active Vitamin B 12 500 MCG Oral TabletIndication s:Vitamin B 12 deficiency Take 1 Tablet by mouth every evening. (Gummy) 11/04/19 24 Active metFORMIN HCl 1000 MG Oral Tablet (Glucophage)Loyda cations:Type 2 diabetes mellitus with hemoglobin A1c goal of less than 7.0% ([facility]) TAKE ONE TABLET BY MOUTH [...] A1c goal of less than 7.0% ([facility]) TAKE TWO TABLETS BY MOUTH [...] ications:Type 2 diabetes, HbA1C goal < 8% ([facility]) Inject 4.5 mg under the [...] as of this encounter (statuses as of 11/22/2024) Active Problems Problem Noted Date Diagnosed Date [...] Protocol #27. 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 Type 2 diabetes, HbA1C goal < 8% 07/26/2009 Overview (02/05/2016): Modified per Diabetes protocol #14. ICD-10 update of inactive term Permanent atrial fibrillation 10/19/2008 documented as of this encounter (statuses as of 11/22/2024) Resolved Problems Problem Noted Date Diagnosed Date [...] as of this encounter (statuses as of 11/22/2024) Immunizations Name Administration Dates Next Due COVID-19 [...] Sign Reading Time Taken Comments Blood Pressure 130/66 11/22/2024 10:00 AM EST Pulse 100 11/22/2024 10:00 AM EST Temperature 36.4 °C (97.5 °F) 11/22/2024 1 0:00 AM EST Respiratory Rate 14 11/22/2024 10:0 0 AM EST Oxygen Saturation 98% 11/22/2024 10: 00 AM EST Inhaled Oxygen Concentration - - Weight 80.2 kg (176 lb 14.4 oz) 025 10:00 AM EST Height 177.8 cm (5' 10") 11/22/2024 10: 00 AM EST Body Mass Index 25.38 11/22/2024 10:00 AM EST documented in this encounter Progress Notes * Artemio Truong, - 11/22/2024 10:42 AM EST SUBJECTIVE: Mitchel Mcpherson is a 78 year old male. Chief Complaint Patient presents with Hospital Follow-Up Hospital Follow-Up Recent Admission: Patient was recently admitted to [facility]. The date of discharge was 11/16/2024. Discharge report received and reviewed. HPI: Patient is an 78 year old male with a history of Type II Diabetes, PMR, Atrial Fibrillation, Hyperlipidemia, Osteoporosis, and Diabetic Retinopathy that is seen for hospital follow up. The patient was admitted to [facility] from 11/06/2024- 11/16/2024. The patient was admitted due to hypoxemic respiratory failure due to Aspiration Pneumonia. Patient had flu symptoms including, fever, and cough for two days prior to admission. The patient vomited in bed while sleeping and was barely responsive per [facility] records. The patient was hypotensive due to sepsis on admission. He had atrial fibrillation with RVR,and confusion. He was treated in the ICU due to hypotension and required Norepinephrine to support his blood pressure. He was treated with Vacomycin and Zosyn. He was treated with stress dose Hydrocortisone as well. RLL infiltrate present on CT chest. The patient has completed antibiotics and has diarrhea for a few days. Shortness of breath has resolved. No chest pain is present. Appetite is improving slowly over the last few days. Weight is colin. He is very tired. Home PT evaluation has been scheduled by visiting nurse. 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 Vitamin D3 50 MCG (2000 UT) Oral Capsule Take 1 Capsule by mouth every evening. (Gummy) 30 Cap 5 QPID Healthuch Ultra Blue In Vitro Strip (Glucose Blood) Use to test once daily. DX:E11.9 100 Strip 3 OneTouch Delica Lancets 33G Use to test once daily. DX: E11.9 100 Each 3 Vitamin B 12 500 MCG Oral [...] 1 Capsule by mouth in the morning. No current facility-administered medications for this visit. Current and discharge medications have been reconciled. Review of patient's allergies indicates: No Known Allergies OBJECTIVE: BP 130/66 | Pulse 100 | Temp 97.5 °F (36.4 °C) | Resp 14 | Ht 5' 10" (1.778 m) | Wt 176 lb 14.4 oz (80.2 kg) | SpO2 98% | BMI 25.38 kg/m² | BSA 1.99 m² REVIEW OF SYSTEMS: Review of Systems Constitutional: Positive for appetite change (decreased), fatigue and unexpected weight change (weight loss). Negative for chills and fever. HENT: Negative for congestion, sore throat and trouble swallowing. Respiratory: Negative for cough, shortness of breath and wheezing. Cardiovascular: Negative for chest pain, palpitations and leg swelling. Gastrointestinal: Positive for diarrhea. Negative for abdominal pain, blood in stool, constipation,nausea and vomiting. Genitourinary: Negative for dysuria, frequency and hematuria. Musculoskeletal: Positive for arthralgias, back pain, gait problem and myalgias. Neurological: Positive for weakness. Negative for dizziness, syncope and headaches. Psychiatric/Behavioral: Negative for confusion, decreased concentration and sleep disturbance. PHYSICAL EXAM: BP 130/66 | Pulse 100 | Temp 97.5 °F (36.4 °C) | Resp 14 | Ht 5' 10" (1.778 m) | Wt 176 lb 14.4 oz (80.2 kg) | SpO2 98% | BMI 25.38 kg/m² | BSA 1.99 m² Physical Exam Vitals and nursing note [...] No edema. Neurological: Mental Status: He is alert. Motor: Weakness present. Gait: Gait abnormal. Psychiatric: Mood and Affect: Mood normal. Behavior: Behavior normal. Thought Content: Thought content normal. ASSESSMENT/PLAN Aspiration pneumonia of right lower lobe due to gastric secretions ([facility]) (Primary) - CT CHEST WO CONTRAST; Future; Expected date: 02/19/2025 - COMPREHENSIVE METABOLIC PANEL; Future; Expected date: 11/22/2024 - CBC WITH WBC DIFFERENTIAL; Future; Expected date: 11/22/2024 Antibiotics completed Influenza A Resolved Physical deconditioning Home Physical Therapy scheduled Metabolic encephalopathy Resolved with treatment of Sepsis. 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 Hospital discharge follow-up - DISCH MED RECON CUR MED LIS Follow-up: Return in about 2 weeks (around 12/06/2024), or if symptoms worsen or fail to improve. | Check-out note: Schedule CT chest in 3 months at [facility] Artemio Truong DO documented in this encounter Plan of Treatment Upcoming Encounters Date Type Department Care Team (Late st Contact Info) Description 2024 1:00 PM EST Anticoagulation Family Practice 65 [facility] [address] [facility], [place] [address] College, Pharmacist [address], [place] [address] 12/07/2024 8:00 AM EST Office Visit Family Practice [address] [place] [address] [address] [facility] [address] [facility] [address] [facility] [address] 02/06/2025 8:00 AM EDT Office Visit Ophthalmology, [facility] [address] [place] [address] Brenden Ellis DO 132 [facility] [place] [address] 03/07/2025 10:15 AM EDT Imaging Radiology [facility] [address] [facility] [address] [place] [id number] 08/14/2025 9:00 AM EST Imaging Radiology [facility] [address] [place] [address] 08/31/2025 8:30 AM EST Office Visit Rheumatology [facility] [address] [place] [phone] Iván Golden CRNP [address] [place] [address], [place] [address] Scheduled Orders Name Type Priority Associated Diagnoses Orde r Schedule CT CHEST WO CONTRAST Medical Imaging Routine Aspiration pneumonia of right lower lobe due to gastric secretions (HCC) Expected: 02/19/2025, Expires: 12/20/2025 CLOSTRIDIUM DIFFICILE, PCR Lab Routine Diarrhea of presumed infectious origin Expected: 11/22/2024 (Approximate), Expires: 11/22/2025 COMPREHENSIVE METABOLIC PANEL Lab Routine Aspiration pneumonia of right lower lobe due to gastric secretions (HCC) Expected: 11/22/2024 (Approximate), Expires: 11/22/2025 CBC WITH WBC DIFFERENTIAL Lab Routine Aspiration pneumonia of right lower lobe due to gastric secretions (HCC) Expected: 11/22/2024 (Approximate), Expires: 11/22/2025 Health Maintenance Due Date Last Done Comments Adult Wellness Visit 03/31/2015 03/31/2014 Diabetic Eye Exam 11/23/2024 11/23/2023, , 11/23/2023, Additional history exists B-12 12/01/2024 12/01/2023, 10/13, 01/08/2023, Additional history exists HbA1c 05/07/2025 11/07/2024, 1010/2023, [...] D LEVEL ONCE IN A LIFETIME-USE SMARTSET# [id number] Completed 09/05/2024, 11/26/2021, 08/09/2021, Additional history exists [...] as of this encounter Visit Diagnoses Diagnosis Aspiration pneumonia of right lower lobe due to gastric secretions (HCC)- Primary Influenza A Influenza with other respiratory manifestations Physical deconditioning Debility, unspecified Metabolic encephalopathy SARWAT (acute kidney injury) (HCC) Acute kidney failure, unspecified Steroid-induced osteoporosis Other osteoporosis Dyslipidemia, goal LDL below 100 Other and unspecified hyperlipidemia Moderate nonproliferative diabetic retinopathy of both eyes with macular edema associated with type 2 diabetes mellitus (HCC) HTN, goal below 140/90 Unspecified essential hypertension 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 Encounter for long-term (current) use of steroids Permanent atrial fibrillation (HCC) Atrial fibrillation PMR (polymyalgia rheumatica) (HCC) Polymyalgia rheumatica Type 2 diabetes, HbA1C goal < 8% (HCC) Type II or unspecified type diabetes mellitus without mention of complication, not stated as uncontrolled Diarrhea of presumed infectious origin Hospital discharge follow-up Other follow-up examination documented in this encounter Care Teams Bereavement Program Coordinator Relationship Specialty Start Date End Date Artemio Truong DO [address] [place] [address] PCP - General Internal Medicine 04/20/24 documented as of this encounter
--- NOTE | 2025-02-11 00:21 | Electrocardiogram Report ---
Test Reason : Blood Pressure : */* mmHG Vent. Rate : 106 BPM Atrial Rate : * BPM P-R Int : * ms QRS Dur : 88 ms QT Int : 342 ms P-R-T Axes : * -4 39 degrees QTcB Int : 454 ms Atrial fibrillation with rapid ventricular response Abnormal ECG When compared with ECG of 08-Nov-2024 04:29, No significant change was found Confirmed by Brenden Lira ([id number]) on 02/11/2025 12:20:28 AM Referred By: REFERRED SELF Confirmed By: Brenden Lira
[2025-02-11 07:37] LABS: Basophils # (auto) 0.04 K/uL (0.00-0.20); Basophils % (auto) 0.3 %; Eosinophils % (auto) 1.4 %; Hematocrit (blood only) 36.7 % (42.0-52.0); Hemoglobin 11.9 g/dl (14.0-18.0); Immature Granulocytes # (auto) 0.08 K/uL (0.01-0.20); Immature Granulocytes % (auto) 0.6 %; Lymphocytes # (auto) 1.35 K/uL (1.20-3.40); Lymphocytes % (auto) 9.7 %; Mean Corpuscular Hemoglobin 29.4 pg (25.0-34.0); Mean Corpuscular Hgb Conc 32.4 g/dL (32.0-36.0); Mean Corpuscular Volume 90.6 fL (80.0-100.0); Mean Platelet Volume 11.2 fL (9.4-12.4); Monocytes # (auto) 1.03 K/uL (0.11-0.59); Monocytes % (auto) 7.4 %; Neutrophils # (auto) 11.22 K/uL (1.40-6.50); Neutrophils % (auto) 80.6 %; Platelet Count 307 K/uL (130-400); RDW Coefficient of Variation 14.3 % (11.5-14.5); RDW Standard Deviation 47.8 fL (36.4-46.3); Red Blood Count 4.05 M/uL (4.70-6.10); White Blood Count 13.92 K/ul (4.8-10.8)
[2025-02-11 08:00] LABS: BUN Creatinine Ratio 21.3 (10-20); Calcium 9.1 mg/dl (8.6-10.3); Creatinine Clr Calc Pharmacy 47.1 ml/min
[2025-02-11 08:02] LABS: INR 2.5 (0.9-1.1); Prothrombin Time 24.9 Seconds (9.0-12.0)
[2025-02-11] MEDS: ADVANCED PROBIOTIC 625 MG CAPSULE PO SCH (09:00)
[2025-02-11] MEDS: CHOLECALCIFEROL 25 MCG (1000 UNITS) TAB PO SCH (09:01)
[2025-02-11] MEDS: ENALAPRIL MALEATE 10 MG TAB PO SCH (09:01)
--- NOTE | 2025-02-11 10:11 | CT Scan Report ---
Clinical history: Hypoxia Technique: Axial computed tomography images were obtained of the chest without intravenous contrast Comparison is made to the prior CT dated 11/06/2024 Findings: There is emphysema. There are new multifocal groundglass infiltrates in the mid and upper lungs bilaterally. There has been partial resolution of multifocal nodular alveolar opacities in the right middle lobe and right lower lobe, with small nodular areas remaining There is a new small left pleural effusion. There is no right pleural effusion or pneumothorax. There is no sign of pulmonary fibrosis or other diffuse interstitial process. No endobronchial lesion is seen There are multiple small and slightly enlarged mediastinal lymph nodes, measuring up to 11 mm in size. The distal aortic arch is aneurysmal, measuring up to 3.7 cm in diameter. The remainder of the thoracic aorta is of normal caliber. There is no pericardial effusion. There is coronary atherosclerosis. The visualized upper abdomen appears unremarkable. No fracture is seen. No focal osseous lesion is evident Impression: 1. Bilateral pneumonia, worsened in the upper lobes and improved in the right middle lobe and right lower lobe compared to the prior study 2. Emphysema 3. Small left pleural effusion 4. Mild thoracic aortic aneurysm 5. Mild mediastinal adenopathy, which may be secondary to the pneumonia ACT 112: Positive. There are findings on this exam that require communication between the performing entity and the patient following Patient Test Result Information Act ([place] ACT 112) guidelines. Electronically signed by Raza Jin 02-11-2025 10:11 AM
[2025-02-11] MEDS: cefTRIAXone SODIUM 2,000 MG/50 ML BAG IV SCH (11:27)
--- NOTE | 2025-02-11 14:14 | Hospitalist Progress Note ---
Date of Service February 11, 2025 Assessment & Plan (1) Acute respiratory failure with hypoxia: (2) Pneumonia: (3) Acute on chronic diastolic (congestive) heart failure: Plan Pt is an 79yoM with past medical history significant for type 2 diabetes mellitus, hyperlipidemia, diabetic retinopathy, permanent atrial fibrillation, hypertension, PMR on steroids, steroid induced osteoporosis who presented with concern for chills and N/V. Found to be hypoxic in the ED. Acute hypoxic respiratory failure Possible pneumonia Possible acute on chronic diastolic heart failure Patient presents to the hospital with chills, nausea and vomiting. He was found to be hypoxic at 83% on admission in the ED Leukocytosis present on admission BNP elevated to 189 Procalcitonin elevated Urinalysis not suggestive of infection Bio fire negative Sputum culture from last admission grew E. coli Chest x-ray on admission shows bilateral infiltrates; possible CHF/pneumonia CT chest noting bilateral pneumonia, emphysema, small left pleural effusion Last echocardiogram from October 2024 with EF of 60 to 65%, will hold off on repeating Continue Rocephin and doxycycline, noted improvement in leukocytosis Continue IV Lasix 20mg BID Continue to monitor Nausea/vomiting--resolved Possible gastroenteritis He reports symptoms has resolved and wants regular diet. Monitor for recurrence. might need further imaging if recurrence of symptoms. Elevated Troponin elevated but downtrended to normal Likely demand in setting of above Thoracic Aorta Anuerysm PCP followup Mediastinal Adenopathy Likely in setting of acute infection above Will need repeat chest imaging to ensure resolution as an outpt Type 2 diabetes mellitushold home medications; on insulin while inpatient Atrial fibrillation with RVR; ventricular rate on admission around 100s; on Lopressor 50 mg twice a day. Telemonitoring. Continue Coumadin, INR therapeu tic Polymyalgia rheumaticacontinue on prednisone. Diet: DMII DVT prophylaxis Coumadin DNR/DNI Admission and Anticipated Discharge Date Admission Date: February 10, 2025 Subjective Pt was seen in the AM, sitting in chair near his bed Noted he was feeling much better and asking about going home. Otherwise denied acute concerns such as SOB, chest pain of palps Review of Systems Review of Systems: All systems reviewed & are unremarkable except as noted in Subjective Physical Exam Physical Exam: General: Alert, oriented. No acute distress HEENT: NC/AT CV: RRR Resp: Breath sounds clear bilaterally, no increased effort of breathing Abdomen: Soft, nontender Extremities: No edema in lower extremities bilaterally. Results & Data Results & Data Vital Signs (Past 12 Hours) Vital Signs Temp Pulse Pulse Resp BP BP Pulse Ox 02/11/25 11:30 36.5 C 85 18 113/72 93 02/11/25 08:08 36.5 C 90 18 152/84 H 93 02/11/25 07:15 80 02/11/25 02:54 36.4 C L 94 H 18 126/76 93 O2 Del Method 02/11/25 11:30 Room Air 02/11/25 08:08 Room Air 02/11/25 07:15 02/11/25 02:54 Room Air Diagnostic Findings Chest X-Ray 02/10/25 08:23 XR chest 1V portable CLINICAL HISTORY: weakness COMPARISON STUDY: Chest CT November 06, 2024. Chest radiograph November 13, 2024. FINDINGS: There is no pneumothorax or pleural effusion. Lung volumes are normal. Interstitial thickening and patchy bilateral airspace opacities are present. Findings have progressed when compared to prior exam. Mild cardiomegaly is unchanged. Mediastinal contours are stable. IMPRESSION: Interstitial thickening and patchy bilateral airspace opacities. The findings may represent pulmonary edema or pneumonia. ACT 112: Negative or not required by law. Electronically signed by: Alberto Marrero M.D. 02/10/2025 8:[address] 02/11/25 09:24 Clinical history: Hypoxia Technique: Axial computed tomography images were obtained of the chest without intravenous contrast Comparison is made to the prior CT dated 11/06/2024 Findings: There is emphysema. There are new multifocal groundglass infiltrates in the mid and upper lungs bilaterally. There has been partial resolution of multifocal nodular alveolar opacities in the right middle lobe and right lower lobe, with small nodular areas remaining There is a new small left pleural effusion. There is no right pleural effusion or pneumothorax. There is no sign of pulmonary fibrosis or other diffuse interstitial process. No endobronchial lesion is seen There are multiple small and slightly enlarged mediastinal lymph nodes, measuring up to 11 mm in size. The distal aortic arch is aneurysmal, measuring up to 3.7 cm in diameter. The remainder of the thoracic aorta is of normal caliber. There is no pericardial effusion. There is coronary atherosclerosis. The visualized upper abdomen appears unremarkable. No fracture is seen. No focal osseous lesion is evident Impression: 1. Bilateral pneumonia, worsened in the upper lobes and improved in the right middle lobe and right lower lobe compared to the prior study 2. Emphysema 3. Small left pleural effusion 4. Mild thoracic aortic aneurysm 5. Mild mediastinal adenopathy, which may be secondary to the pneumonia ACT 112: Positive. There are findings on this exam that require communication between the performing entity and the patient following Patient Test Result Information Act ([place] ACT 112) guidelines. Electronically signed by Raza Jin 02-11-2025 10:11 AM
--- NOTE | 2025-02-11 14:48 | Pharmacy Report ---
Pharmacy Glycemic Short Note 2 - Date of Service February 11, 2025 - Glycemic Short BSG Results (Last 24 hours): 02/10/25 02/10/25 02/11/25 17:00 20:23 07:10 Glucose 153 H POC Glucose 224 H 227 H 02/11/25 02/11/25 08:21 11:58 Glucose POC Glucose 141 H 163 H OUTPATIENT ANTIDIABETIC REGIMEN: * Trulicity 4.5mg SQ weekly * metformin 1000mg po BID * glipizide 20mg po QAM and 10mg po QPM HbA1c: 8.1% on 11/07/24, updated value ordered for 02/12/25 ASSESSMENT: * Mitchel is an 79 year old male who was admitted yesterday for acute respiratory failure with hypoxia/pneumonia with associated chills and vomiting. Pharmacy has been consulted for glycemic management while he is admitted. * Dinner time BSG was 224mg/dL last evening. A weight based bolus insulin regimen with a stress of 2 was started at that time. Lantus 10 units SQ daily was started at HS yesterday. * Fasting BSG improved to 141mg/dL this morning. He will be continued on current basal and bolus insulin regimens without change. PLAN FOR INPATIENT GLYCEMIC CONTROL: * Hold outpatient diabetes medications * Basal insulin * Lantus 10 units SQ daily * Bolus insulin * NovoLog per scale ACHS or Q6hrs while NPO * Goal Range: Low 140 mg/dL - High 180 mg/dL * Correction Factor: 35 mg/dL/unit * Nutritional / Prandial insulin per carb ratio of 1 unit per 10 grams CHO consumed
[2025-02-11] MEDS: WARFARIN SOD 5 MG TAB PO SCH (17:08)
[2025-02-12 06:54] LABS: INR 2.2 (0.9-1.1); Prothrombin Time 22.6 Seconds (9.0-12.0)
[2025-02-12 08:14] VITALS: TEMP 97.9
[2025-02-12 08:59] LABS: Albumin Globulin Ratio 0.9 (0.9-2); Albumin Level 3.3 gm/dl (3.4-5.0); BUN Creatinine Ratio 24.8 (10-20); Bilirubin,Total 0.5 mg/dl (0.2-1.0); Calcium 9.2 mg/dl (8.6-10.3); Creatinine Clr Calc Pharmacy 49.4 ml/min; Globulin 3.8 gm/dl (2.5-4.0); Magnesium 1.8 mg/dl (1.7-2.4); Phosphorus 3.6 mg/dl (2.5-4.9); Potassium 4.4 mmol/L (3.5-5.1); Total Protein 7.1 gm/dl (6.0-8.3)
[2025-02-12 09:39] LABS: Estimated Average Glucose 223 mg/dl; Hemoglobin A1C 9.4 % (4.5-5.6)
[2025-02-12 09:56] LABS: Basophils # (auto) 0.02 K/uL (0.00-0.20); Basophils % (auto) 0.2 %; Eosinophils # (auto) 0.21 K/uL (0.00-0.50); Hematocrit (blood only) 35.1 % (42.0-52.0); Hemoglobin 11.5 g/dl (14.0-18.0); Immature Granulocytes % (auto) 0.9 %; Lymphocytes # (auto) 1.34 K/uL (1.20-3.40); Lymphocytes % (auto) 12.7 %; Mean Corpuscular Hgb Conc 32.8 g/dL (32.0-36.0); Mean Corpuscular Volume 88.6 fL (80.0-100.0); Mean Platelet Volume 10.9 fL (9.4-12.4); Monocytes # (auto) 0.66 K/uL (0.11-0.59); Monocytes % (auto) 6.2 %; Neutrophils # (auto) 8.26 K/uL (1.40-6.50); Platelet Count 301 K/uL (130-400); RDW Coefficient of Variation 14.2 % (11.5-14.5); RDW Standard Deviation 46.1 fL (36.4-46.3); Red Blood Count 3.96 M/uL (4.70-6.10); White Blood Count 10.59 K/ul (4.8-10.8)
--- NOTE | 2025-02-12 10:44 | Pulmonary Consultation ---
Date of Consultation February 12, 2025 Assessment & Plan (1) Acute on chronic diastolic (congestive) heart failure: (2) Multifocal pneumonia: (3) Chills: (4) Polymyalgia rheumatica: (5) Chronic steroid use: (6) Atrial fibrillation with rapid ventricular response: (7) COPD with emphysema: Plan 78-year-old male admitted to the hospital for hypoxic respiratory failure Past medical history: PMR on 10 mg prednisone a daily basis, A-fib on warfarin, hypertension, dyslipidemia, COPD CT chest 02/11/2025 personally reviewed: Centrilobular and paraseptal emphysema appreciated bilaterally Bilateral groundglass opacities appreciated bilaterally Minimal left-sided pleural effusion Cardiomegaly No significant mediastinal lymphadenopathy --Acute hypoxic respiratory failure on presentation Abnormal chest CT with groundglass opacities appreciated bilaterally Multifactorial Respiratory BioFire negative for everything on 5-2-25 Procalcitonin 1.64 BNP 189 --COPD with emphysema Not on any inhalers at home Recommend Anoro or Stiolto on discharge --History of A-fib On warfarin and beta-sara at home -- Polymyalgia rheumatica with chronic steroid use On 5 mg twice daily of prednisone on a daily basis Plan: Although I am not impressed with the patchy groundglass opacities bilaterally as it could be seen in pulmonary edema but with elevation of procalcitonin I think it is reasonable to complete 5-day course of antibiotics. Currently on Rocephin and doxycycline Giving doxycycline 100 mg twice a day on discharge should be reasonable Anoro or Stiolto inhaler on discharge I spent more than 75 minutes looking in the chart, images, discussing the plan of care with the patient as well as primary team Please note the above document was generated using voice recognition software. It may contain grammatical, syntax or spelling errors.Any formal questions or concerns about the content, text or information contained within the body of this dictation should be directly addressed to the provider for clarification. History of Present Illness Attending Physician: Michelle Spain MD History of Present Illness 79-year-old male present to the hospital with hypoxia Past medical history: HFpEF, A-fib on warfarin, diabetes type 2, PMR on chronic prednisone Pulmonary consulted for abnormal chest CT At the time of examination patient was saturating 97-98% on room air He was not in any respiratory distress History is feeling much better since he came to the hospital At home he stated that he was having issues 1 night where he started to have significant chills this was followed by 1 episode of vomiting and nausea Breathing barry he did complain of worsening shortness of breath Denied any hemoptysis. Clear phlegm No dysuria, no diarrhea Social history: Approximately [id number] smoking history, quit in his early 80s, used to work in construction. No history of lung cancer in the family Allergies Allergy/AdvReac Type Severity Reaction Status Date / Time oxycodone Allergy Intermediate WHEEZING Verified 02/10/25 11:11 Home Medications Medication Instructions Recorded Confirmed Type alendronate 70 mg tablet (Fosamax) 70 mg PO WK 12/25/21 02/10/25 History atorvastatin 20 mg tablet (Lipitor) 20 mg PO PM 12/25/21 02/10/25 History cholecalciferol (vitamin D3) 50 50 mcg PO QAM 12/25/21 02/10/25 History mcg (2,000 unit) tablet (Vitamin D3) duloxetine 20 mg capsule,delayed 20 mg PO QPM 12/25/21 02/10/25 History release glipizide 10 mg tablet See Rx Instructions .Route .COMPLEX 12/25/21 02/10/25 History metformin 1,000 mg tablet 1,000 mg PO BID 12/25/21 02/10/25 History prednisone 5 mg tablet 5 mg PO BID 12/25/21 02/10/25 History warfarin 5 mg tablet See Rx Instructions .Route .COMPLEX 12/25/21 02/10/25 History acetaminophen 500 mg tablet 500 - 1,000 mg PO Q6H PRN Pain 12/30/22 02/10/25 History (Tylenol Extra Strength) enalapril maleate 10 mg tablet 10 mg PO QAM #30 tabs 01/03/23 02/10/25 Rx metoprolol tartrate 50 mg tablet 50 mg PO BID #60 tabs 01/03/23 02/10/25 Rx dulaglutide 4.5 mg/0.5 mL 4.5 mg subcut WK 11/06/24 02/10/25 History subcutaneous pen injector (Trulicity) L.acidop,casei,lactis,rham-B.lact,xenia 1 cap PO DAILY #30 caps 11/16/24 02/10/25 Rx 625 mg (10 billion cell) capsule (Advanced Probiotic) metronidazole 500 mg tablet 500 mg PO BID #4 tabs 11/16/24 02/10/25 Rx doxycycline hyclate 100 mg capsule 100 mg PO BID #6 caps 02/12/25 Rx furosemide 20 mg tablet 20 mg PO DAILY #30 tabs 02/12/25 Rx umeclidinium 62.5 mcg-vilanterol 1 inh inhalation DAILY #14 ea 02/12/25 Rx 25 mcg/actuation powdr for inhalation (Anoro Ellipta) Patient History Medical History Atrial fibrillation follows with Dr Sebastian, no cardioversion. managed with medications. Chronic steroid use Diabetes mellitus, type 2 NIDDM Hyperlipidemia Hypertension On anticoagulant therapy Osteoarthritis Polymyalgia rheumatica takes prednisone BID to manage. Surgical History H/O eye surgery bilateral tear duct procedures to place a "drain" History of arthroscopy of left shoulder History of cataract surgery History of colonoscopy S/P left knee arthroscopy Family History Other No family history of adverse response to anesthesia Social History (System 02/10/25 @ 08:31 by Annie Cortez) Smoking Status: Former smoker Tobacco Type: Cigarettes Second Hand Exposure: No; Do You Dip or Chew Tobacco: No; Hx Alcohol Use: No Hx Substance Use: No Preferred Language: Nigerian Communication Ability: Effective Street Commissioner Required: No Beliefs That Will Affect Care: None marital status: Current Living Situation: Spouse Current Living Situation Comment: one story home with one step to front door Feels Safe at Home: Yes Safety Concerns: Feels Safe At This Time Assistive Devices: None Review of Systems 2 Review of Systems: All systems reviewed & are unremarkable except as noted in HPI & below Physical Exam 2 Physical Exam: Constitutional: No acute distress HEENT: EOMI, PERRLA Respiratory system: Good air entry bilaterally, [] wheeze, [] rhonchi, [] crackles CVS: S1-S2 positive, no murmurs or gallops Abdomen: Soft, nontender, nondistended, positive bowel sounds x4 Extremities: +2 pulses bilaterally radialis/ dorsalis pedis, no cyanosis, no edema Neuro: Awake alert oriented x3 Psych: Normal mood and affect G/U: Skin: no rashes, warm and dry Lymphatic: no cervical or axillary lymphadenopathy Results & Data Results & Data Vital Signs (Past 12 Hours) Vital Signs Temp Pulse Pulse Resp BP Pulse Ox O2 Del Method 02/12/25 08:13 36.6 C 95 H 18 128/75 97 Room Air 02/12/25 07:09 88 Laboratory Results 02/12/25 09:41 02/12/25 05:57 PG Care Time/CCT Total # of Minutes Spent Total Time Spent with Patient: Total time spent is greater than 50% in coordination of care (as documented) at patient's floor/unit and/or counseling patient: Coding Level of Care Code 72561 INT INP/OBS CARE 2/55MIN Diagnoses Acute on chronic diastolic (congestive) heart failure I50.33 Multifocal pneumonia J18.9 Chills R68.83 Polymyalgia rheumatica M35.3 Chronic steroid use Atrial fibrillation with rapid ventricular response I48.91 COPD with emphysema J43.9
[2025-02-12 11:34] VITALS: BP 121/77; RESP 16
[2025-02-12] MEDS: UMECLIDINIUM/VILANTEROL 62.5/25MCG 7 PUFFS/INHALER INH SCH (12:11)
--- NOTE | 2025-02-12 13:52 | Discharge Summary ---
Discharge Summary Date of Service February 12, 2025 Principal Dx & Hospital Course #1 = Principal Diagnosis (1) Acute respiratory failure with hypoxia: (2) Pneumonia: (3) Acute on chronic diastolic (congestive) heart failure: Plan Pt is an 79yoM with past medical history significant for type 2 diabetes mellitus, hyperlipidemia, diabetic retinopathy, permanent atrial fibrillation, hypertension, PMR on steroids, steroid induced osteoporosis who presented with concern for chills and N/V. Found to be hypoxic in the ED. Acute hypoxic respiratory failure Community Acquired Pneumonia Possible acute on chronic diastolic heart failure Pleural Effusion hx of COPD Patient presents to the hospital with chills, nausea and vomiting. He was found to be hypoxic at 83% on admission in the ED Leukocytosis present on admission BNP elevated to 189 Procalcitonin elevated Urinalysis not suggestive of infection Bio fire negative Sputum culture from last admission grew E. coli Chest x-ray on admission shows bilateral infiltrates; possible CHF/pneumonia CT chest noting bilateral pneumonia, emphysema, small left pleural effusion Last echocardiogram from October 2024 with EF of 60 to 65%, not updated this admission treated with Rocephin and doxycycline, noted improvement in leukocytosis Treated with IV Lasix 20mg BID Pulmonology was consulted, appreciate recs for discharge -complete 5 days of antibiotic treatment with doxycycline -inhaler such as Anoro on discharge Pt also discharged with po lasix 20mg daily Close PCP and pulmonology followup after discharge Nausea/vomiting--resolved Possible gastroenteritis He reports symptoms has resolved and wants regular diet. Monitor for recurrence. might need further imaging if recurrence of symptoms. Elevated Troponin elevated but downtrended to normal Likely demand in setting of above Thoracic Aorta Aneurysm PCP followup Mediastinal Adenopathy Likely in setting of acute infection above Will need repeat chest imaging to ensure resolution as an outpt Type 2 diabetes [id number] of 9.4. held home medications and treated with insulin while inpatient. Close PCP followup Atrial fibrillation with RVR; ventricular rate on admission around 100s; on Lopressor 50 mg twice a day. Telemonitoring. Continue Coumadin, INR therapeutic Polymyalgia rheumaticacontinue on prednisone. Notes For Next Care Provider As above Medication Changes From Visit As above Admission HPI Per Admitting Provider History of obtained from chart review, interview with the patient and discussion with ED provider Past medical history of type 2 diabetes mellitus, hyperlipidemia, diabetic retinopathy, permanent atrial fibrillation, hypertension, PMR on steroid, steroid induced osteoporosis Last admission from 11/06/2024 to 12/06/2024 with acute hypoxic respiratory failure, COPD exacerbation, severe sepsis with septic shock, influenza A Patient presents to the hospital for evaluation of chills associated with nausea and vomiting that started around 5 AM today morning. Patient reports that he was feeling at his baseline last night but was woken up this morning with chills and episode of nausea and vomiting. He denies fever, shortness of breath, chest pain, abdominal pain diarrhea or urinary symptoms. He reports that the symptoms all resolved during the time of the interview. On presentation to the ED, he was afebrile, hypoxic at 83% in RA; tachycardic in atrial fibrillation and normotensive. He was found to have leukocytosis. BNP elevated to 189 PG/mL. BioFire negative. Chest x-ray shows bilateral infiltrates concerning for pulmonary edema or pneumonia. Last echocardiogram from October 2024 with EF of 60 to 65%. Admission Exam Per Admitting Provider Constitutional: WD/WN, vitals as above, NAD, sitting up in bed, pleasant, conversing easily Respiratory: Bilateral basal crackles present Cardiovascular: Irregular, no murmur, no edema Vessels: no JVD or carotid bruit Chest: normal inspection of chest Abdomen: normal bowel sounds, soft, nontender, no hepatosplenomegaly Musculoskeletal: no cyanosis or clubbing, extremities motor strength 5/5 Skin: no rashes, warm and dry normal turgor Neurologic: PERRL, EOMI, accommodation nl, no face palsy, no dysarthria CN's II- XI intact bilaterally and moves all extremities Psychiatric: A+Ox3, euthymic affect Discharge Exam General: Alert, oriented. No acute distress HEENT: NC/AT CV: RRR Resp: Breath sounds clear bilaterally, no increased effort of breathing Abdomen: Soft, nontender Extremities: No edema in lower extremities bilaterally. Updated Medication List Medication Instructions Recorded Confirmed Type alendronate 70 mg tablet (Fosamax) 70 mg PO WK 12/25/21 02/10/25 History atorvastatin 20 mg tablet (Lipitor) 20 mg PO PM 12/25/21 02/10/25 History cholecalciferol (vitamin D3) 50 50 mcg PO QAM 12/25/21 02/10/25 History mcg (2,000 unit) tablet (Vitamin D3) duloxetine 20 mg capsule,delayed 20 mg PO QPM 12/25/21 02/10/25 History release glipizide 10 mg tablet See Rx Instructions .Route .COMPLEX 12/25/21 02/10/25 History metformin 1,000 mg tablet 1,000 mg PO BID 12/25/21 02/10/25 History prednisone 5 mg tablet 5 mg PO BID 12/25/21 02/10/25 History warfarin 5 mg tablet See Rx Instructions .Route .COMPLEX 12/25/21 02/10/25 History acetaminophen 500 mg tablet 500 - 1,000 mg PO Q6H PRN Pain 12/30/22 02/10/25 History (Tylenol Extra Strength) enalapril maleate 10 mg tablet 10 mg PO QAM #30 tabs 01/03/23 02/10/25 Rx metoprolol tartrate 50 mg tablet 50 mg PO BID #60 tabs 01/03/23 02/10/25 Rx dulaglutide 4.5 mg/0.5 mL 4.5 mg subcut WK 11/06/24 02/10/25 History subcutaneous pen injector (Trulicity) L.acidop,casei,lactis,rham-B.lact,xenia 1 cap PO DAILY #30 caps 11/16/24 02/10/25 Rx 625 mg (10 billion cell) capsule (Advanced Probiotic) doxycycline hyclate 100 mg capsule 100 mg PO BID #6 caps 02/12/25 Rx furosemide 20 mg tablet 20 mg PO DAILY #30 tabs 02/12/25 Rx umeclidinium 62.5 mcg-vilanterol 1 inh inhalation DAILY #14 ea 02/12/25 Rx 25 mcg/actuation powdr for inhalation (Anoro Ellipta) Hospital Stay Data Consultations 02/10/25 10:37 ED Decision to Admit Stat 02/12/25 10:07 Consult Pulmonology Routine Diagnostic Imagining Performed 02/11/25 09:24 CT chest diagnostic wo con Urgent Chest X-Ray 02/10/25 08:23 XR chest 1V portable CLINICAL HISTORY: weakness COMPARISON STUDY: Chest CT November 06, 2024. Chest radiograph November 13, 2024. FINDINGS: There is no pneumothorax or pleural effusion. Lung volumes are normal. Interstitial thickening and patchy bilateral airspace opacities are present. Findings have progressed when compared to prior exam. Mild cardiomegaly is unchanged. Mediastinal contours are stable. IMPRESSION: Interstitial thickening and patchy bilateral airspace opacities. The findings may represent pulmonary edema or pneumonia. ACT 112: Negative or not required by law. Electronically signed by: Alberto Marrero M.D. 02/10/2025 8:[address] 02/11/25 09:24 Clinical history: Hypoxia Technique: Axial computed tomography images were obtained of the chest without intravenous contrast Comparison is made to the prior CT dated 11/06/2024 Findings: There is emphysema. There are new multifocal groundglass infiltrates in the mid and upper lungs bilaterally. There has been partial resolution of multifocal nodular alveolar opacities in the right middle lobe and right lower lobe, with small nodular areas remaining There is a new small left pleural effusion. There is no right pleural effusion or pneumothorax. There is no sign of pulmonary fibrosis or other diffuse interstitial process. No endobronchial lesion is seen There are multiple small and slightly enlarged mediastinal lymph nodes, measuring up to 11 mm in size. The distal aortic arch is aneurysmal, measuring up to 3.7 cm in diameter. The remainder of the thoracic aorta is of normal caliber. There is no pericardial effusion. There is coronary atherosclerosis. The visualized upper abdomen appears unremarkable. No fracture is seen. No focal osseous lesion is evident Impression: 1. Bilateral pneumonia, worsened in the upper lobes and improved in the right middle lobe and right lower lobe compared to the prior study 2. Emphysema 3. Small left pleural effusion 4. Mild thoracic aortic aneurysm 5. Mild mediastinal adenopathy, which may be secondary to the pneumonia ACT 112: Positive. There are findings on this exam that require communication between the performing entity and the patient following Patient Test Result Information Act ([place] ACT 112) guidelines. Electronically signed by Raza Jin 02-11-2025 10:11 AM Discharge Instructions Given to Patient (Per Discharging Provider) Mr. Mcpherson, You were admitted and treated for a pneumonia. It was also noted that you had some fluid in the lungs. You were seen by the lung doctor who recommends discharge home with the antibiotic doxycycline to complete a total of 5 days of treatment. he also recommended daily use of the inhaler Anoro. Please also continue with the daily "water pill" lasix. We determined that you did not need oxygen on discharge. Please keep close follow up with your primary care provider after discharge. Please do not hesitate to come back to the emergency room if your symptoms worsen or return. It was a pleasure taking care of you while you were here. Total Time Total Time Spent Total Time Spent (In Minutes): 60
[2025-02-12 15:23] VITALS: PULSE 96; O2SAT 92
== END 2025-02-12 16:07 | disposition home or self-care (01) | DRG 193 ==
LOC: MERGE 07:50 → ED 07:50 → 2N 11:33 → SUATTDRO 11:33 → 2N 15:56

== ENCOUNTER 2025-02-13 10:42 | Inpatient (IN) ==
--- NOTE | 2025-02-13 11:27 | Emergency Department Note ---
Impression & Plan SIRS (systemic inflammatory response syndrome), Leukocytosis, Generalized weakness, Elevated lactic acid level, Hypomagnesemia ED Provider Note HISTORY OF PRESENT ILLNESS: Patient is an 79-year-old male presenting with chills and near syncope. Patient reports that he was discharged from the hospital yesterday after being admitted with pneumonia. He states that today he woke up and has been feeling very weak and rundown. States that he feels very cold and cannot stop shaking. Family member at bedside reports the patient almost passed out twice this morning. Reports that she had to catch him before he hit the ground. Patient reports he felt faint prior to those episodes. Denies any chest pain or shortness of breath prior to the near syncopal episodes. He denies actually passing out. ROS: as above PHYSICAL EXAM: Constitutional: Patient appears in no acute distress. HENT: Head: Normocephalic and atraumatic. Eyes: EOMI, PERRL Mouth/Throat: Mucous membranes moist. Neck: Trachea midline. Neck supple. Cardiovascular: Tachycardic with irregularly irregular. No murmurs, rubs or gallops. Intact distal pulses. Pulmonary/Chest: No respiratory distress. Breath sounds clear and equal bilaterally. No wheezes or rales. Abdominal: Abdomen soft, no tenderness, rebound or guarding. Musculoskeletal: No edema, tenderness or deformity noted. Skin: Warm and dry. No rash, erythema, pallor or cyanosis Psychiatric: Appropriate mood and affect for situation. Neurological: Alert and keenly responsive. CN II-XII grossly intact, moving all extremities equally and fully. MDM: - Vitals signs showed hypertension tachycardia - History obtained via patient. History as above. - Chronic conditions affecting care: Afib; HTN; HLD; DM-2; polymyalgia rheumatica - Differential diagnoses include, but are not limited to: UTI; pneumonia; viral syndrome; bacteremia; CVA; intracranial hemorrhage; ACS; electrolyte abnormality - Order placed for continuous cardiac monitoring. At this time, monitor showed rate of 100 bpm with irregular rhythm, per my interpretation. - External medical records reviewed. Discharge summary dated 02/12/2025 was reviewed. Patient was admitted that time secondary to community-acquired pneumonia and acute hypoxic respiratory failure. - EKG image interpreted by myself showed atrial fibrillation. Rate 99 bpm. QT 322. No acute ischemic changes. - Laboratory workup interpreted by myself showed leukocytosis (WBC 19.85) with neutrophil predominance; elevated INR (3.0); elevated lactic acid (2.4); stable electrolytes reveal hypomagnesemia (Mg 1.6); normal troponin - Blood cultures and procalcitonin obtained. - CXR image reviewed by myself is negative for pneumonia, per my interpretation. - UA ordered - CT head wo contrast negative for acute pathology - Patient does not have a source of infection at this time. He does meet SIRS criteria given his tachycardia and leukocytosis. - Patient given IV zosyn empirically - Given 2L NS in ER. Patient's sepsis volume fluid calculation based on ideal body weight is 2345.40 mL. No further fluids were administered, as patient is not hypotensive and he has a history of heart failure and had pleural effusions during his last admission. - Given 1g IV magnesium for electrolyte replacement - Discussion was had with watch caser about patient's case and need for admission - Hospitalist consulted for admission - [facility] evaluation and management. ASSESSMENT AND PLAN: Diagnosis: SIRS; leukocytosis; elevated lactic acid level; hypomagnesemia; generalized weakness Plan: Admit Past Med/Surg History Problem List (Updated 02/13/25 @ 14:13 by Jessica Spangler MD) Hypomagnesemia (Acute) Elevated lactic acid level (Acute) Generalized weakness (Acute) Leukocytosis (Acute) SIRS (systemic inflammatory response syndrome) (Acute) COPD with emphysema Multifocal pneumonia Acute on chronic diastolic (congestive) heart failure Chills (Acute) Leukocytosis (Acute) Pneumonia (Acute) Demand ischemia Lactic acidosis Acute metabolic encephalopathy Aspiration pneumonitis Shock Aspiration into airway (Acute) Vomiting (Acute) AMS (altered mental status) (Acute) Sepsis (Acute) Acute respiratory failure with hypoxia (Acute) Human metapneumovirus (hMPV) pneumonia (Acute) Pulmonary edema (Acute) Atrial fibrillation with rapid ventricular response (Acute) Scrotal swelling Tight foreskin HTN, goal below 140/90 Steroid-induced osteoporosis Permanent atrial fibrillation ARF (acute renal failure) (Acute) Acute kidney injury (Acute) Dehydration (Acute) Dehydration (Acute) Gastroenteritis (Acute) Nausea (Acute) Weakness (Acute) Encounter for pre-operative examination Medical History Atrial fibrillation follows with Dr Sebastian, no cardioversion. managed with medications. Chronic steroid use Diabetes mellitus, type 2 NIDDM Hyperlipidemia Hypertension On anticoagulant therapy Osteoarthritis Polymyalgia rheumatica takes prednisone BID to manage. Surgical History H/O eye surgery bilateral tear duct procedures to place a "drain" History of arthroscopy of left shoulder History of cataract surgery History of colonoscopy S/P left knee arthroscopy Family History Other No family history of adverse response to anesthesia Social History (System 02/10/25 @ 08:31 by Annie Cortez) Smoking Status: Former smoker Tobacco Type: Cigarettes Second Hand Exposure: No; Do You Dip or Chew Tobacco: No; Hx Alcohol Use: No Hx Substance Use: No Preferred Language: Peruvian Communication Ability: Effective Jig Bore Operator Required: No Beliefs That Will Affect Care: None marital status: Current Living Situation: Spouse Current Living Situation Comment: one story home with one step to front door Feels Safe at Home: Yes Assistive Devices: None Allergies Allergies Allergy/AdvReac Type Severity Reaction Status Date / Time oxycodone Allergy Intermediate WHEEZING Verified 02/10/25 11:11 Home Meds Home Medications Medication Instructions Recorded Confirmed alendronate 70 mg tablet (Fosamax) 70 mg PO WK 12/25/21 02/10/25 atorvastatin 20 mg tablet (Lipitor) 20 mg PO PM 12/25/21 02/10/25 cholecalciferol (vitamin D3) 50 50 mcg PO QAM 12/25/21 02/10/25 mcg (2,000 unit) tablet (Vitamin D3) duloxetine 20 mg capsule,delayed 20 mg PO QPM 12/25/21 02/10/25 release glipizide 10 mg tablet See Rx Instructions .Route .COMPLEX 12/25/21 02/10/25 metformin 1,000 mg tablet 1,000 mg PO BID 12/25/21 02/10/25 prednisone 5 mg tablet 5 mg PO BID 12/25/21 02/10/25 warfarin 5 mg tablet See Rx Instructions .Route .COMPLEX 12/25/21 02/10/25 acetaminophen 500 mg tablet 500 - 1,000 mg PO Q6H PRN Pain 12/30/22 02/10/25 (Tylenol Extra Strength) dulaglutide 4.5 mg/0.5 mL 4.5 mg subcut WK 11/06/24 02/10/25 subcutaneous pen injector (Trulicity) Previous Rx's Medication Instructions Recorded enalapril maleate 10 mg tablet 10 mg PO QAM #30 tabs 01/03/23 metoprolol tartrate 50 mg tablet 50 mg PO BID #60 tabs 01/03/23 L.acidop,casei,lactis,rham-B.lact,xenia 1 cap PO DAILY #30 caps 11/16/24 625 mg (10 billion cell) capsule (Advanced Probiotic) doxycycline hyclate 100 mg capsule 100 mg PO BID #6 caps 02/12/25 furosemide 20 mg tablet 20 mg PO DAILY #30 tabs 02/12/25 umeclidinium 62.5 mcg-vilanterol 1 inh inhalation DAILY #14 ea 02/12/25 25 mcg/actuation powdr for inhalation (Anoro Ellipta) Results & Data (ED) Vital Signs Vital Signs - 24 hr 02/13/25 10:59 02/13/25 11:03 Temperature 36.6 C Temperature Source Oral Pulse Rate 94 H 95 H Pulse Rhythm Regular Pulse Strength Normal Respiratory Rate 18 Respiratory Effort / Characteristics Non-Labored Respiratory Depth Normal Respiratory Pattern Regular Blood Pressure 156/121 H Blood Pressure Mean 132 Pulse Oximetry 96 Oxygen Delivery Method Room Air Sepsis Recent Fever Within 48 Hours No Sepsis New/Unexplained Change in Mental Status N/A Sepsis Action Taken by Nursing No Action Required Laboratory Data 02/13/25 12:11 02/13/25 12:11 Lab Results 02/13/25 02/13/25 Range/Units 12:11 12:15 WBC 19.85 H (4.8-10.8) K/ul RBC 4.41 L (4.70-6.10) M/uL Hgb 12.7 L (14.0-18.0) g/dl Hct 39.4 L (42.0-52.0) % MCV 89.3 (80.0-100.0) fL MCH 28.8 (25.0-34.0) pg MCHC 32.2 (32.0-36.0) g/dL RDW Std Deviation 46.4 H (36.4-46.3) fL RDW Coeff of Roverto 14.1 (11.5-14.5) % Plt Count 373 (130-400) K/uL MPV 11.0 (9.4-12.4) fL Immature Gran % (Auto) 0.8 % Neut % (Auto) 85.7 % Lymph % (Auto) 6.5 % [place] % (Auto) 5.9 % Eos % (Auto) 0.9 % Baso % (Auto) 0.2 % Neut # (Auto) 17.01 H (1.40-6.50) K/uL Lymph # (Auto) 1.30 (1.20-3.40) K/uL [place] # (Auto) 1.17 H (0.11-0.59) K/uL Eos # (Auto) 0.17 (0.00-0.50) K/uL Baso # (Auto) 0.04 (0.00-0.20) K/uL Immature Gran # (Auto) 0.16 (0.01-0.20) K/uL PT 29.3 H (9.0-12.0) Seconds INR 3.0 H (0.9-1.1) APTT 37 H (21-31) Seconds PTT Ratio 1.4 Sodium 137 (136-145) mmol/L Potassium 3.8 (3.5-5.1) mmol/L Chloride 99 (98-107) mmol/L Carbon Dioxide 29 (21-32) mmol/L Anion Gap 9 (3-11) BUN 32 H (6-23) mg/dl Creatinine 1.35 (0.6-1.4) mg/dl Est Cr Clr Drug Dosing 45.7 ml/min eGFR 52.75 BUN/Creatinine Ratio 23.7 H (10-20) Glucose 211 H (70-99(Fasting)) mg/dl Lactate 2.4 H* (0.4-2.0) mmol/L Calcium 9.2 (8.6-10.3) mg/dl Magnesium 1.6 L (1.7-2.4) mg/dl Total Bilirubin 0.6 (0.2-1.0) mg/dl AST 13 (13-39) U/L ALT 18 (7-52) U/L Alkaline Phosphatase 41 (34-104) U/L Troponin I High Sens 14.1 (0-20) pg/ml Total Protein 7.4 (6.0-8.3) gm/dl Albumin 3.4 (3.4-5.0) gm/dl Globulin 4.0 (2.5-4.0) gm/dl Albumin/Globulin Ratio 0.9 (0.9-2) Administered Medications Discontinued Medications Sodium Chloride (Nss) 1,000 mls @ 999 mls/hr IV .Q1H1M STA Stop: 02/13/25 13:39 Last Infusion: 02/13/25 13:56 Dose: Infused Documented By: [facility] Admin: 02/13/25 12:47 Dose: 999 mls/hr Documented By: [facility] Piperacillin Sod/Tazobactam Sod (Zosyn) 4.5 gm in 100 mls @ 200 mls/hr IV NOW ONE; Protocol Stop: 02/13/25 13:08 Last Infusion: 02/13/25 13:30 Dose: Infused Documented By: Admin: 02/13/25 12:47 Dose: 200 mls/hr Documented By: GABRIELA Sodium Chloride (Nss) 1,000 mls @ 999 mls/hr IV .Q1H1M STA Stop: 02/13/25 14:03 Last Admin: 02/13/25 13:57 Dose: 999 mls/hr Documented By: GABRIELA Magnesium Sulfate/Dextrose (Magnesium Sulfate / D5w) 1 gm in 100 mls @ 100 mls/hr IV NOW STA Stop: 02/13/25 14:02 Last Admin: 02/13/25 13:24 Dose: 100 mls/hr Documented By: Mary Imaging Data Radiologist's Impression: Chest X-Ray 02/13/25 11:09 XR chest 1V portable CLINICAL HISTORY: Sepsis COMPARISON STUDY: 02/10/2025 FINDINGS: Heart size and pulmonary vasculature are normal. No effusion, consolidation, or pneumothorax. IMPRESSION: No acute findings. ACT 112: Negative or not required by law. Electronically signed by: Romario Henning M.D. 02/13/2025 11:[address] 02/13/25 11:09 CT SCAN OF THE BRAIN WITHOUT IV CONTRAST CLINICAL HISTORY: Weakness. Near syncopal episode. COMPARISON STUDY: MRI of the brain March 17, 2018. Head CT April 06, 2025. TECHNIQUE: Unenhanced axial CT scan of the brain was performed from the vertex to the skull base. A dose lowering technique was utilized adhering to the principles of ALARA. CT DOSE: 547.75 mGy.cm FINDINGS: Brain parenchyma: No acute intracranial hemorrhage, midline shift or mass effect is present. Carter-white matter differentiation is preserved. There are no extra- axial fluid collections. There are no findings to suggest acute dural sinus thrombosis or acute territorial infarct. White matter hypodensities are unchanged and favor small vessel disease. 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 Encephalomalacia within the left parietal lobe is unchanged. Ventricles, sulci, cisterns: There is no hydrocephalus. The basal cisterns are patent. Calvarium: Unremarkable. Sinuses and mastoids: Mucous retention cyst within the left maxillary sinus is partially imaged. The mastoid air cells are well pneumatized. Orbits: The bony orbits are grossly intact. IMPRESSION: No acute intracranial findings. No change in appearance of the brain. ACT 112: Negative or not required by law. Electronically signed by: Alberto Marrero M.D. 02/13/2025 11:54 AM Discharge Plan Visit Data Chief Complaint: Weakness Stated Complaint: WEAKNESS, NEAR SYNCOPE, NAUSEA, VOMITING ED Provider: Jessica Spangler Discharge Problem: SIRS (systemic inflammatory response syndrome), Leukocytosis, Generalized weakness, Elevated lactic acid level, Hypomagnesemia Condition: Fair Forms Stand Alone Forms: My [facility] [place] [employer] Prescriptions Prescriptions: No Action glipizide 10 mg Tablet See Rx Instructions .ROUTE .COMPLEX Rx Instructions: Take 20mg by mouth in the morning and 10mg by mouth at bedtime. metformin 1,000 mg Tablet 1,000 mg PO BID atorvastatin [Lipitor] 20 mg Tablet 20 mg PO PM alendronate [Fosamax] 70 mg Tablet 70 mg PO WK Rx Instructions: TUESDAYS prednisone 5 mg Tablet 5 mg PO BID warfarin 5 mg Tablet See Rx Instructions .ROUTE .COMPLEX Rx Instructions: Take 5mg by mouth on Sun///Sat and 2.5mg all other days duloxetine 20 mg Capsule,Delayed Release(Dr/Ec) 20 mg PO QPM cholecalciferol (vitamin D3) [Vitamin D3] 50 mcg (2,000 unit) Tablet 50 mcg PO QAM acetaminophen [Tylenol Extra Strength] 500 mg Tablet 500 - 1,000 mg PO Q6H PRN (Reason: Pain) enalapril maleate 10 mg Tablet 10 mg PO QAM Qty: 30 0RF metoprolol tartrate 50 mg Tablet 50 mg PO BID Qty: 60 1RF Trulicity 4.5 mg/0.5 mL pen injector 4.5 mg subcut WK Rx Instructions: Advanced Probiotic 625 mg (10 billion cell) Capsule 1 cap PO DAILY Qty: 30 0RF doxycycline hyclate 100 mg Capsule 100 mg PO BID Qty: 6 0RF Anoro Ellipta 62.5-25 mcg/actuation blister with device 1 inh inhalation DAILY Qty: 14 0RF furosemide 20 mg tablet 20 mg PO DAILY Qty: 30 0RF Referrals Referrals: Artemio Truong DO [Primary Care Provider] -
--- NOTE | 2025-02-13 11:54 | XRay Report ---
XR chest 1V portable CLINICAL HISTORY: Sepsis COMPARISON STUDY: 02/10/2025 FINDINGS: Heart size and pulmonary vasculature are normal. No effusion, consolidation, or pneumothora x. IMPRESSION: No acute findings. ACT 112: Negative or not required by law. Electronically signed by: Romario Henning M.D. 02/13/2025 11:53 AM
--- NOTE | 2025-02-13 11:55 | CT Scan Report ---
CT SCAN OF THE BRAIN WITHOUT IV CONTRAST CLINICAL HISTORY: Weakness. Near syncopal episode. COMPARISON STUDY: MRI of the brain March 17, 2018. Head CT April 06, 2025. TECHNIQUE: Unenhanced axial CT scan of the brain was performed from the vertex to the skull base. A dose lowering technique was utilized adhering to the principles of ALARA. CT DOSE: 547.75 mGy.cm FINDINGS: Brain parenchyma: No acute intracranial hemorrhage, midline shift or mass effect is present. Carter-whi te matter differentiation is preserved. There are no extra-axial fluid collections. There are no find ings to suggest acute dural sinus thrombosis or acute territorial infarct. White matter hypodensities are unchanged and favor small vessel disease. 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 Encephalomalacia within the left parietal lobe is unchanged. Ventricles, sulci, cisterns: There is no hydrocephalus. The basal cisterns are patent. Calvarium: Unremarkable. Sinuses and mastoids: Mucous retention cyst within the left maxillary sinus is partially imaged. The mastoid air cells are well pneumatized. Orbits: The bony orbits are grossly intact. IMPRESSION: No acute intracranial findings. No change in appearance of the brain. ACT 112: Negative or not required by law. Electronically signed by: Alberto Marrero M.D. 02/13/2025 11:54 AM
[2025-02-13 12:37] LABS: Basophils # (auto) 0.04 K/uL (0.00-0.20); Basophils % (auto) 0.2 %; Eosinophils # (auto) 0.17 K/uL (0.00-0.50); Eosinophils % (auto) 0.9 %; Hematocrit (blood only) 39.4 % (42.0-52.0); Hemoglobin 12.7 g/dl (14.0-18.0); Immature Granulocytes # (auto) 0.16 K/uL (0.01-0.20); Immature Granulocytes % (auto) 0.8 %; Lymphocytes % (auto) 6.5 %; Mean Corpuscular Hemoglobin 28.8 pg (25.0-34.0); Mean Corpuscular Hgb Conc 32.2 g/dL (32.0-36.0); Mean Corpuscular Volume 89.3 fL (80.0-100.0); Monocytes # (auto) 1.17 K/uL (0.11-0.59); Monocytes % (auto) 5.9 %; Neutrophils # (auto) 17.01 K/uL (1.40-6.50); Neutrophils % (auto) 85.7 %; Platelet Count 373 K/uL (130-400); RDW Coefficient of Variation 14.1 % (11.5-14.5); RDW Standard Deviation 46.4 fL (36.4-46.3); Red Blood Count 4.41 M/uL (4.70-6.10); White Blood Count 19.85 K/ul (4.8-10.8)
[2025-02-13] MEDS: PIPERACILLIN/TAZOBACTAM 4.5 GM/100 ML BAG IV ONE (12:47)
[2025-02-13] MEDS: SODIUM CHLORIDE 0.9% 1,000 ML IV STA ×2 (12:47→13:57)
[2025-02-13 12:53] LABS: Albumin Globulin Ratio 0.9 (0.9-2); Albumin Level 3.4 gm/dl (3.4-5.0); BUN Creatinine Ratio 23.7 (10-20); Bilirubin,Total 0.6 mg/dl (0.2-1.0); Calcium 9.2 mg/dl (8.6-10.3); Creatinine Clr Calc Pharmacy 45.7 ml/min; Magnesium 1.6 mg/dl (1.7-2.4); Potassium 3.8 mmol/L (3.5-5.1); Total Protein 7.4 gm/dl (6.0-8.3)
[2025-02-13 13:00] LABS: Troponin I High Sensitivity 14.1 pg/ml (0-20)
[2025-02-13 13:08] LABS: Partial Thromboplastin Ratio 1.4; Partial Thromboplastin Time 37 Seconds (21-31); Prothrombin Time 29.3 Seconds (9.0-12.0)
[2025-02-13] MEDS: MAGNESIUM SULFATE / D5W 1 GM/100 ML BAG IV STA (13:24)
--- NOTE | 2025-02-13 14:17 | History & Physical Report ---
Date of Service February 13, 2025 Assessment & Plan (1) SIRS (systemic inflammatory response syndrome): (2) Polymyalgia rheumatica: (3) Diabetes mellitus, type 2: (4) Atrial fibrillation: (5) Hypertension: (6) Hyperlipidemia: (7) Hypomagnesemia: (8) Pneumonia: Plan Mr. Mcpherson is an 79 year old male that presented to the ED meeting SIRS criteria with with leukocytosis 19.85, lactic acidosis 2.4 increasing to3.0, and near syncope. his indicated that he was at baseline yesterday upon discharge and went to bed as his normal self last evening. This morning he woke and ate scrambled eggs and had coffee and then when he went to stand from the table his had to hold him to stabilize him as he experienced a near syncope episode.This most recent admission was 02/10 to 02/12 and prior to that he had a more lengthy admission October to November 16, 2024. Pulmonology saw on 02/12 for results of a chest CT this previous admission resulting in bilateral pneumonia groundglass opacities bilaterally with a left- sided pleural effusion. 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 Patient will be admitted for further evaluation and management of SIRS criteria in the setting of pneumonia which likely required additional IV antibiotics. Will place on broad-spectrum antibiotics Zosyn and include doxycycline. Blood cultures were obtained, will trend lactate until less than 2.0, procalcitonin pending, PT OT, will reduce Coumadin dosing and monitor for supratherapeutic coagulation, if no improvement over the next 24 hours would reinvolve pulmonary as they are familiar with this patient. SIRS; likely in the setting of pneumonia: Elevated lactic acidosis: Patient presents to the hospital with Near syncope and does meet sepsis criteria (Leukocytosis 19.85, elevated lactate 2.4 , tachycardia low 100s) ECG A-fib without RVR No hypoxia on admission; now requiring 3L Procalcitonin pending UA negative Biofire ordered and pending Received 2LNS in ED; given crackles in bases upon auscultation hold additional IV fluids for now and check BNP (last admit BNP 189) Sputum culture from previous admission grew E. coli; repeat now CXR: negative for acute cardiopulmonary disease Chest chest CT from previous admission noting bilateral pneumonia and emphysema with bilateral groundglass opacities and left-sided pleural effusion Sputum culture ordered; previous admission in October 2024 sputum culture grew E. coli Was placed on Zosyn in the ED; continue Zosyn and add IV Doxy for now; adjust based on culture results MRSA screen pending if no improvement over the next 24 to 48 hours consider re-involving pulmonary Near syncope: Likely in the setting of acute infection as listed above Head CT negative for ICH, midline shift or SDH Most recent echo 11/05 EF 60 to 65%; repeat ECHO Orthostatic blood pressures when ordered PT OT Hypomagnesemia: Serum mag 1.6; received 1 g in ED Trend mag in a.m. Atrial fibrillation: No RVR on admission Heart rate mid 90s to low 100s Takes Lopressor; continue (did not take medications today) Continue Coumadin, INR 3.0; reduce dose to 2.5 today Check PT/INR in a.m. Thoracic Aorta Anuerysm Last echocardiogram from October 2024 with EF of 60 to 65%, repeat ECHO while here Mediastinal Adenopathy Likely in setting of acute infection above Will need repeat chest imaging to ensure resolution as an outpt Type 2 diabetes mellitus chronic Hold home medications Placed on SSI ACHS while inpatient A1c in a.m. Polymyalgia rheumatica Takes prednisone; continue Disposition: Diet: DMII DVT prophylaxis: takes Coumadin borderline supratherapeutic INR 3.0 on admission CODE STATUS:DNR/DNI; confirmed at bedside with I spent a total of 81 minutes coordinating, documenting, and providing care for this patient excluding time spent inthe performance of separately billed services or time spent by another provider/QHP. History of Present Illness Chief Complaint: weakness Primary Care Provider: Artemio Truong DO Mr. Mcpherson is an 79 year old male that presented to the ED meeting SIRS criteria with with leukocytosis 19.85, lactic acidosis 2.4 increasing to3.0, and near syncope. his indicated that he was at baseline yesterday upon discharge and went to bed as his normal self last evening. This morning he woke and ate scrambled eggs and had coffee and then when he went to stand from the table his had to hold him to stabilize him as he experienced a near syncope episode. This most recent admission was 02/10 to 02/12 and prior to that he had a more lengthy admission October to November 16, 2024. Pulmonology saw on 02/12 for results of a chest CT this previous admission resulting in bilateral pneumonia groundglass opacities bilaterally with a left-sided pleural effusion. 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 In the ED she received 2L NS and was started on Zosyn. Patient was discharged yesterday from the [facility] on oral antibiotics; unclear whether or not he did take his antibiotics as when I was talking to him about his medications he was unclear about dosing etc. Past medical history includes A-fib, NIDDM, HTN, PMR, COPD emphysema; [id number] history quit smoking in the early 1980s. discussed with patient's at bedside they do have 3 sons who live in the area but do not visit him routinely unless she calls them. Patient unaware if he took his antibiotics when he was discharged. He did say that he does not take his medications this morning. He does take his Coumadin in the morning. Patient will be admitted for further evaluation and management of SIRS criteria in the setting of pneumonia which likely required additional IV antibiotics. Will place on broad-spectrum antibiotics Zosyn and include doxycycline. Blood cultures were obtained in the emergency room, will trend lactate until less than 2.0, procalcitonin pending, PT OT, will reduce Coumadin dosing and monitor for supratherapeutic coagulation, if no improvement over the next 24 hours would reinvolve pulmonary as they are familiar with this patient. Allergies Allergy/AdvReac Type Severity Reaction Status Date / Time oxycodone Allergy Intermediate WHEEZING Verified 02/10/25 11:11 Home Medications Medication Instructions Recorded Confirmed Type alendronate 70 mg tablet (Fosamax) 70 mg PO WK 12/25/21 02/13/25 History atorvastatin 20 mg tablet (Lipitor) 20 mg PO PM 12/25/21 02/13/25 History cholecalciferol (vitamin D3) 50 50 mcg PO QAM 12/25/21 02/13/25 History mcg (2,000 unit) tablet (Vitamin D3) duloxetine 20 mg capsule,delayed 20 mg PO QPM 12/25/21 02/13/25 History release glipizide 10 mg tablet See Rx Instructions .Route .COMPLEX 12/25/21 02/13/25 History metformin 1,000 mg tablet 1,000 mg PO BID 12/25/21 02/13/25 History prednisone 5 mg tablet 5 mg PO BID 12/25/21 02/13/25 History warfarin 5 mg tablet See Rx Instructions .Route .COMPLEX 12/25/21 02/13/25 History acetaminophen 500 mg tablet 500 - 1,000 mg PO Q6H PRN Pain 12/30/22 02/13/25 History (Tylenol Extra Strength) enalapril maleate 10 mg tablet 10 mg PO QAM #30 tabs 01/03/23 02/13/25 Rx metoprolol tartrate 50 mg tablet 50 mg PO BID #60 tabs 01/03/23 02/13/25 Rx dulaglutide 4.5 mg/0.5 mL 4.5 mg subcut WK 11/06/24 02/13/25 History subcutaneous pen injector (Trulicity) L.acidop,casei,lactis,rham-B.lact,xenia 1 cap PO DAILY #30 caps 11/16/24 02/13/25 Rx 625 mg (10 billion cell) capsule (Advanced Probiotic) doxycycline hyclate 100 mg capsule 100 mg PO BID #6 caps 02/12/25 02/13/25 Rx furosemide 20 mg tablet 20 mg PO DAILY #30 tabs 02/12/25 02/13/25 Rx umeclidinium 62.5 mcg-vilanterol 1 inh inhalation DAILY #14 ea 02/12/25 02/13/25 Rx 25 mcg/actuation powdr for inhalation (Anoro Ellipta) Past Med/Surg History Problem List Hypomagnesemia (Acute) Elevated lactic acid level (Acute) Generalized weakness (Acute) Leukocytosis (Acute) SIRS (systemic inflammatory response syndrome) (Acute) COPD with emphysema Multifocal pneumonia Acute on chronic diastolic (congestive) heart failure Chills (Acute) Leukocytosis (Acute) Pneumonia (Acute) Demand ischemia Lactic acidosis Acute metabolic encephalopathy Aspiration pneumonitis Shock Aspiration into airway (Acute) Vomiting (Acute) AMS (altered mental status) (Acute) Sepsis (Acute) Acute respiratory failure with hypoxia (Acute) Human metapneumovirus (hMPV) pneumonia (Acute) Pulmonary edema (Acute) Atrial fibrillation with rapid ventricular response (Acute) Scrotal swelling Tight foreskin HTN, goal below 140/90 Steroid-induced osteoporosis Permanent atrial fibrillation ARF (acute renal failure) (Acute) Acute kidney injury (Acute) Dehydration (Acute) Dehydration (Acute) Gastroenteritis (Acute) Nausea (Acute) Weakness (Acute) Encounter for pre-operative examination Medical History Chronic steroid use Polymyalgia rheumatica takes prednisone BID to manage. Osteoarthritis Diabetes mellitus, type 2 NIDDM On anticoagulant therapy Hyperlipidemia Hypertension Atrial fibrillation follows with Dr Sebastian, no cardioversion. managed with medications. Surgical History History of cataract surgery History of arthroscopy of left shoulder S/P left knee arthroscopy History of colonoscopy H/O eye surgery bilateral tear duct procedures to place a "drain" Family History Other No family history of adverse response to anesthesia Social History Smoking Status: Former smoker Tobacco Type: Cigarettes Second Hand Exposure: No; Do You Dip or Chew Tobacco: No; Hx Alcohol Use: No Hx Substance Use: No Preferred Language: Setswana Communication Ability: Effective Gyro Compass Tester Required: No Beliefs That Will Affect Care: None marital status: Current Living Situation: Spouse Current Living Situation Comment: one story home with one step to front door Feels Safe at Home: Yes Assistive Devices: None Review of Systems Review of Systems: Neuro: (-) Falls, trauma, slurred speech HEENT: (-) JACOBS, dizziness, dysphagia, visual or auditory changes CV: (-) CP, palpitations, swelling Resp: (-) SOB GI: (-) appetite changes, N/V/D, bowel changes : (-) urinary changes Skin: (-) rashes Psych: (-) anxiety, depression Physical Exam Physical Exam: Neuro: AAOx4, PERRLA, no aphagia, memory changes, CNII-XII grossly intact HEENT: head normocephalic, moist mucus membranes CV: S1/S2, (-) M/G/R, (-) edema, cap refill < 3 seconds Resp: Lungs Crackles posteriorly in bases bilaterally. On room air and no signs of hypoxia. GI: Abdomen S/NT/ND, Ax4 bowel sounds, (-) CVA tenderness Musculoskeletal: 5/5 B/L UE strength, 5/5 B/L LE strength. No gait disturbance at this time Skin: (-) rashes , (-) erythema. Psych: [place] Results & Data Results & Data Vital Signs (Past 12 Hours) Vital Signs Temp Pulse Resp BP Pulse Ox O2 Del Method 02/13/25 11:03 95 H 02/13/25 10:59 36.6 C 94 H 18 156/121 H 96 Room Air Laboratory Results Short CBC 02/13/25 Range/Units 12:11 WBC 19.85 H (4.8-10.8) K/ul Hgb 12.7 L (14.0-18.0) g/dl Hct 39.4 L (42.0-52.0) % Plt Count 373 (130-400) K/uL BMP 02/13/25 12:11 Sodium 137 Potassium 3.8 Chloride 99 Carbon Dioxide 29 BUN 32 H Creatinine 1.35 Glucose 211 H Calcium 9.2 Liver Function 02/13/25 Range/Units 12:11 Total Bilirubin 0.6 (0.2-1.0) mg/dl AST 13 (13-39) U/L ALT 18 (7-52) U/L Alkaline Phosphatase 41 (34-104) U/L Albumin 3.4 (3.4-5.0) gm/dl Diagnostic Findings Chest X-Ray 02/13/25 11:09 XR chest 1V portable CLINICAL HISTORY: Sepsis COMPARISON STUDY: 02/10/2025 FINDINGS: Heart size and pulmonary vasculature are normal. No effusion, consolidation, or pneumothorax. IMPRESSION: No acute findings. ACT 112: Negative or not required by law. Electronically signed by: Romario Henning M.D. 02/13/2025 11:[address] 02/13/25 11:09 CT SCAN OF THE BRAIN WITHOUT IV CONTRAST CLINICAL HISTORY: Weakness. Near syncopal episode. COMPARISON STUDY: MRI of the brain March 17, 2018. Head CT April 06, 2025. TECHNIQUE: Unenhanced axial CT scan of the brain was performed from the vertex to the skull base. A dose lowering technique was utilized adhering to the principles of ALARA. CT DOSE: 547.75 mGy.cm FINDINGS: Brain parenchyma: No acute intracranial hemorrhage, midline shift or mass effect is present. Carter-white matter differentiation is preserved. There are no extra- axial fluid collections. There are no findings to suggest acute dural sinus thrombosis or acute territorial infarct. White matter hypodensities are unchanged and favor small vessel disease. 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 Encephalomalacia within the left parietal lobe is unchanged. Ventricles, sulci, cisterns: There is no hydrocephalus. The basal cisterns are patent. Calvarium: Unremarkable. Sinuses and mastoids: Mucous retention cyst within the left maxillary sinus is partially imaged. The mastoid air cells are well pneumatized. Orbits: The bony orbits are grossly intact. IMPRESSION: No acute intracranial findings. No change in appearance of the brain. ACT 112: Negative or not required by law. Electronically signed by: Alberto Marrero M.D. 02/13/2025 11:54 AM Code Status & VTE Plan Code Status DNR/DNI in the event of cardiac or respiratory arrest VTE Prophylaxis Plan VTE Prophylaxis will be ordered: Yes Supervising Physician Co-Signing Physician Notes Patient is a 89-year-old male with history of diastolic heart failure, A-fib, diabetes mellitus, polymyalgia rheumatica on chronic prednisone, recently thought to have COPD and other medical problems who was hospitalized discharged yesterday from [facility] after being treated for community-acquired pneumonia, respiratory failure and suspected acute on chronic diastolic heart failure presents with history of generalized weakness, near syncopal episode. Patient also felt very cold and shaky. Denies any head trauma, loss of consciousness. Please review HPI for complete details of presentation. I personally reviewed blood work and imaging studies. Noted leukocytosis 19K, INR 3.0, lactate 2.4, BNP 117, magnesium 1.6, glucose 211. CT head showed no acute process. initial chest x-ray showed no acute process. Patient received IV fluids while in the ED for suspected sepsis. Patient was hypoxic requiring supplemental oxygen after few hours. Repeat chest x-ray pending. Physical Exam: Vitals signs as noted above General Appearance:Moderately built and nourished, no apparent distress, ill- appearing Head: normocephalic, Atraumatic Eyes: normal inspection, EOMI Neck: supple, Trachea midline Respiratory/Chest: Decreased breath sounds, basal crackles, No accessory muscle use Cardiovascular: Irregularly irregular, No murmur, tachycardia Abdomen/GI:Soft, Non tender, Bowel sounds present Extremities/Musculoskeletal:normal inspection, no edema Neurologic/Psych:AAOX3, grossly no focal neurological deficits,+ decreased hearing Skin: normal color, warm Sepsis Possible source due to pneumonia Hypomagnesemia Lactic acidosis A-fib RVR Near syncope Procalcitonin, BioFire, sputum /blood cultures pending Empirically started on broad-spectrum IV antibiotics Supplemental oxygen as needed Monitor for rhythm issues Resume home metoprolol On Coumadin for anticoagulation Obtain resting echo Hold metformin and utilize insulin while hospitalized Check orthostatics PT OT, fall precautions Replete electrolytes as needed I personally interviewed and examined the patient at bedside. I have reviewed the advanced practitioner's documentation on the date of service referred in note and agree with plan. Patient's care is coordinated with Maryjane SIMPSON. Please refer to the documentation above for details of patient's presentation and for discussion of other issues. I spent a total [id number] coordinating, documenting, and providing care for this patient excluding time spent in the performance of separately billed services or time spent by another provider/QHP.
[2025-02-13 14:59] LABS: Appearance Urine Clear (Clear); Bacteria Urine Automated None Seen (None Seen); Bilirubin Urine Negative (Negative); Blood Urine Negative (Negative); Color Urine Yellow; Epithelial Cell Urine Auto 0-2 /hpf (0-2); Glucose Urine UA Trace (Negative); Hyaline Casts Urine Present /lpf (None Presnt); Ketones Urine Trace (Negative); Leukocyte Esterase Urine Negative (Negative); Nitrite Urine Negative (Negative); Protein Urine 1+ (Negative); RBC Urine Automated 0-2 /hpf (0-2); Specific Gravity Urine 1.021 (1.000-1.030); Urobilinogen Urine Negative (Negative); WBC Urine Automated 0-5 /hpf (0-5); pH Urine 5.5 (4.5-7.5)
[2025-02-13] MEDS: DOXYCYCLINE HYCLATE 100 MG in DEXTROSE 5% MINI-B 100 ML IV SCH (15:09)
[2025-02-13] MEDS ORDERED: GLUCOSE 10 TAB/TUBE PO PRN (15:59)
[2025-02-13] MEDS ORDERED: CARBOHYDRATES FOR HYPOGLYCEMIA PO PRN (15:59)
[2025-02-13] MEDS ORDERED: PHARMACY GLYCEMIC MGMT CONSULT PRN (15:59)
[2025-02-13] MEDS ORDERED: GLUCOSE 40% GEL 15 GM TUBE PO PRN (15:59)
[2025-02-13] MEDS ORDERED: GLUCAGON FOR INJ 1 MG VIAL SQ PRN (15:59)
[2025-02-13] MEDS ORDERED: DEXTROSE 50% 50 ML SYRINGE IV PRN (15:59)
[2025-02-13] MEDS: METOPROLOL TARTRATE 50 MG TAB PO STA (16:27)
[2025-02-13] MEDS ORDERED: ALUMINUM/MAGNESIUM SUSP 30 ML UDC PO PRN (17:00)
[2025-02-13] MEDS ORDERED: MAGNESIUM HYDROXIDE SUSP 30 ML UDC PO PRN (17:00)
[2025-02-13] MEDS ORDERED: POLYETHYLENE (MIRALAX) 17 GM PACK PO PRN (17:00)
[2025-02-13] MEDS ORDERED: METOPROLOL TARTRATE 1 MG/ML VIAL IV PRN (17:14)
--- NOTE | 2025-02-13 17:18 | XRay Report ---
Clinical History: Shortness of breath Technique: A frontal view of the chest was obtained Comparison is made to the prior examination dated 02/10/2025 Findings: There are worsened multifocal interstitial infiltrates bilaterally, likely due to pneumonia. The heart size is within normal limits. No pleural effusion or pneumothorax is seen. There is no definite pulmonary nodule. No fracture is noted. No foreign body is seen Impression: Diffuse interstitial opacities, concerning for bronchopneumonia ACT 112: Positive. There are findings on this exam that require communication between the performing entity and the patient following Patient Test Result Information Act ([place] ACT 112) guidelines. Electronically signed by Raza Jin 02-13-2025 5:18 PM
[2025-02-13] MEDS: ONDANSETRON INJ 2 MG/ML 2 ML VIAL IV PRN (17:22)
[2025-02-13] MEDS: ADVANCED PROBIOTIC 625 MG CAPSULE PO SCH (17:30)
[2025-02-13] MEDS: WARFARIN SOD 2.5 MG TAB PO SCH (17:31)
[2025-02-13] MEDS: UMECLIDINIUM/VILANTEROL 62.5/25MCG 7 PUFFS/INHALER INH SCH (17:32)
[2025-02-13 17:44] LABS: Adenovirus PCR Not Detected (NotDetected); Bordetella parapertussis PCR Not Detected (NotDetected); Bordetella pertussis PCR Not Detected (NotDetected); Chlamydia pneumoniae PCR Not Detected (NotDetected); Coronavirus 229E PCR Not Detected (NotDetected); Coronavirus CoV-2 (COVID19)PCR Not Detected (NotDetected); Coronavirus HKU1 PCR Not Detected (NotDetected); Coronavirus NL63 PCR Not Detected (NotDetected); Coronavirus OC43PCR Not Detected (NotDetected); Human Metapneumovirus PCR Not Detected (NotDetected); Influenza A PCR Not Detected (NotDetected); Influenza B PCR Not Detected (NotDetected); Mycoplasma pneumoniae PCR Not Detected (NotDetected); Parainfluenza Virus 1 PCR Not Detected (NotDetected); Parainfluenza Virus 2 PCR Not Detected (NotDetected); Parainfluenza Virus 3 PCR Not Detected (NotDetected); Parainfluenza Virus 4 PCR Not Detected (NotDetected); Respiratory Syncytial VirusPCR Not Detected (NotDetected); Rhinovirus/Enterovirus PCR Not Detected (NotDetected)
[2025-02-13] MEDS: PIPERACILLIN/TAZOBACTAM 4.5 GM/100 ML BAG IV SCH (17:57)
[2025-02-13] MEDS: INSULIN ASPART PER UNIT CHARGE SC SCH (17:57)
[2025-02-13] MEDS: ACETAMINOPHEN 325 MG TAB PO PRN (17:58)
[2025-02-13] MEDS: METOPROLOL TARTRATE 50 MG TAB PO ONE (19:08)
--- NOTE | 2025-02-13 19:26 | XRay Report ---
EXAM: XR KUB/Abdomen 1 view CLINICAL HISTORY: Nausea, vomiting TECHNIQUE: X-ray images of the abdomen were obtained in supine position. COMPARISON: compared to the previous study dated 11/13/2024. FINDINGS: Gas Pattern: Gas pattern within the abdomen is normal. No evidence of bowel obstruction or distention. Soft Tissues: Soft tissues of the abdomen appear normal without evidence of masses or calcifications. Liver, spleen, and kidneys are of normal size and position. Bilateral sacroiliitis IMPRESSION: No acute abnormalities identified. stable Electronically signed by Rosalio Wu 02-13-2025 7:26 PM
[2025-02-13] MEDS: DOXYCYCLINE HYCLATE 100 MG CAP PO SCH (20:08)
[2025-02-13] MEDS: LANTUS PER UNIT CHARGE SQ SCH (20:08)
[2025-02-13] MEDS: DULoxetine HCL 20 MG CAP PO SCH (20:09)
[2025-02-13] MEDS: predniSONE 5 MG TAB PO SCH (20:09)
[2025-02-13] MEDS: ATORVASTATIN 20 MG TAB PO SCH (20:09)
[2025-02-13] MEDS: METOPROLOL TARTRATE 50 MG TAB PO SCH (20:09)
--- NOTE | 2025-02-14 04:54 | Electrocardiogram Report ---
Test Reason : Blood Pressure : */* mmHG Vent. Rate : 99 BPM Atrial Rate : * BPM P-R Int : * ms QRS Dur : 86 ms QT Int : 322 ms P-R-T Axes : * 9 39 degrees QTcB Int : 413 ms Atrial fibrillation Nonspecific ST abnormality Abnormal ECG When compared with ECG of 10-Feb-2025 08:09, No significant change was found Confirmed by Janes Chu ([id number]) on 02/14/2025 4:53:48 AM Referred By: REFERRED SELF Confirmed By: Janes Chu
[2025-02-14 06:16] LABS: Hematocrit (blood only) 31.8 % (42.0-52.0); Hemoglobin 10.3 g/dl (14.0-18.0); Mean Corpuscular Hemoglobin 29.3 pg (25.0-34.0); Mean Corpuscular Hgb Conc 32.4 g/dL (32.0-36.0); Mean Corpuscular Volume 90.3 fL (80.0-100.0); Mean Platelet Volume 10.6 fL (9.4-12.4); Platelet Count 266 K/uL (130-400); RDW Coefficient of Variation 14.3 % (11.5-14.5); RDW Standard Deviation 47.3 fL (36.4-46.3); Red Blood Count 3.52 M/uL (4.70-6.10); White Blood Count 12.03 K/ul (4.8-10.8)
[2025-02-14 06:32] LABS: BUN Creatinine Ratio 19.6 (10-20); Calcium 8.2 mg/dl (8.6-10.3); Creatinine Clr Calc Pharmacy 44.7 ml/min; Potassium 4.3 mmol/L (3.5-5.1)
[2025-02-14 07:02] LABS: INR 4.3 (0.9-1.1); Prothrombin Time 40.8 Seconds (9.0-12.0)
[2025-02-14 07:57] LABS: Estimated Average Glucose 217 mg/dl; Hemoglobin A1C 9.2 % (4.5-5.6)
--- NOTE | 2025-02-14 08:31 | Pharmacy Report ---
Pharmacy Glycemic Short Note 2 - Date of Service February 14, 2025 - Glycemic Short BSG Results (Last 24 hours): 02/13/25 02/13/25 02/13/25 12:11 17:02 20:01 Glucose 211 H POC Glucose 163 H 157 H 02/14/25 02/14/25 05:58 07:17 Glucose 174 H POC Glucose 142 H OUTPATIENT ANTIDIABETIC REGIMEN: * Metformin * Glipizide * Dulaglutide * Note - also on chronic prednisone 5 mg po BID * HbA1c 9.2% on 02/14/25 ASSESSMENT: * 79 yo M with poorly controlled T2DM per HbA1c above admitted meeting SIRS criteria 2nd possible PNA * Will hold outpatient regimen * Will initiate low dose BID Lantus at ~0.1 units/kg/dose * Will initiate weight-based moderate stress estimate Novolog * Chronic home prednisone ordered/continued * Poor CHO intake noted yesterday (none charted) 2nd nausea/vomiting PLAN FOR INPATIENT GLYCEMIC CONTROL: * Hold outpatient diabetes medications * Basal insulin * Lantus 7 units SQ BID * Bolus insulin * NovoLog per scale ACHS or Q6hrs while NPO * Goal Range: Low 110 mg/dL - High 140 mg/dL * Correction Factor: 30 mg/dL/unit * Nutritional / Prandial insulin per carb ratio of 1 unit per 10 grams CHO consumed
--- NOTE | 2025-02-14 11:06 | Pulmonary Consultation ---
Date of Consultation February 14, 2025 Assessment & Plan (1) Abnormal CT scan, chest: (2) Syncope: Encounter type: initial encounter (3) On prednisone therapy: Plan 79-year-old male with a history of extensive tobacco abuse history who presents to the hospital with syncopal symptoms. Pulmonary was consulted due to concerns of "worsening pneumonia". Chest CT 02/11/2025 revealed bilateral groundglass opacities possibly secondary to aspiration pneumonitis. Patient was discharged home once he was feeling better and not requiring supplemental oxygen. He returns to the hospital after having a syncopal episode. He denies any worsening cough, shortness of breath or chest pain. He is pulmonary exam is relatively benign. Chest x-ray imaging shows stability if not mild improvement in alveolar infiltrates. I would also recommend a follow-up CT in about 2 months to ensure resolution of the groundglass opacities. Should he have any worsening of his respiratory symptoms despite antibiotics, would consider sputum analysis for PJP in light of his chronic prednisone use. I am not overly convinced that of significant bacterial pneumonia process at this time, but not unreasonable to complete a course of community-acquired pneumonia antibiotics. Can likely transition to Augmentin and doxycycline. I would strongly encourage a more robust workup regarding the patient's vomiting and syncope. Consider Holter monitor as an outpatient, carotid ultrasounds and MRI brain. There is also possibility that he may have had a component of relative adrenal insufficiency in light of his chronic prednisone use which predisposed him to orthostatic hypotension and syncope. Given that the patient is relatively asymptomatic from a COPD perspective, consider the use of albuterol as needed as opposed to maintenance inhaler. Thank you for the consult. Please call with questions. History of Present Illness Reason for Consultation: "Worsening pneumonia" Attending Physician: Michelle Spain MD History of Present Illness 79-year-old male with a history of COPD, diastolic heart failure, atrial fibrillation and diabetes mellitus who presented to the hospital 02/13/2025 due to chills and near syncope. He was actually discharged from hospital 02/12/2025 and seen by my colleague Dr. Ramsey on that day. He was discharged home on a LABA/LAMA inhaler per the recommendations of pulmonary medicine. He was recommended that he continue on 5 days of antibiotics. On admission at this time, he was found to have a white count of 20,000, lactate of 2.4 and near syncope. I personally reviewed his chest CT from 02/11/2025 which revealed paraseptal emphysema, right apical pleural fibrosis, diffuse groundglass greatest in the upper lobes bilaterally, and a small left pleural effusion. Chest x-ray 02/10/2025 revealed bilateral increased alveolar opacities with increased interstitial markings. Chest x-ray 02/13/2025 is mildly improved. Today, patient with a white count of 12,000. Pro-Loco 02/13/2025 0.91. BNP 02/13/2025 117. Patient chronically on warfarin for A-fib with an INR of 4.3. Hemoglobin has decreased from baseline of around 11.5 to 10.3 today. Patient currently on Zosyn, prednisone 5 mg twice daily and doxycycline 100 mg twice daily. Respiratory viral panel on admission was negative. Blood cultures currently negative to date. Sputum cultures from 11/06/2024 revealed E. coli. Patient was hospitalized in October for influenza A and superimposed aspiration pneumonia. Echo 02/13/2025 revealed an LVEF of 65 to 70%. Mild aortic valve sclerosis. No evidence of pulmonary hypertension. Patient evaluated in the hospital room. His is at bedside. She notes that after he drink his coffee he had a syncopal episode. Patient notes that prior to his syncopal episode he was feeling dizzy and had an upset stomach. He denies any worsening cough, shortness of breath, fevers or chills. He notes that prior to his previous hospitalization he did have some chills. He also had episodes of nausea and vomiting previous to his initial hospitalization. He quit smoking in 1983. He smoked about 1 pack a day since the age of 12. He owns 1 cat. He lives with his . He is retired. No significant occupational exposure history. Allergies Allergy/AdvReac Type Severity Reaction Status Date / Time oxycodone Allergy Intermediate WHEEZING Verified 02/10/25 11:11 Home Medications Medication Instructions Recorded Confirmed Type alendronate 70 mg tablet (Fosamax) 70 mg PO WK 12/25/21 02/13/25 History atorvastatin 20 mg tablet (Lipitor) 20 mg PO PM 12/25/21 02/13/25 History cholecalciferol (vitamin D3) 50 50 mcg PO QAM 12/25/21 02/13/25 History mcg (2,000 unit) tablet (Vitamin D3) duloxetine 20 mg capsule,delayed 20 mg PO QPM 12/25/21 02/13/25 History release glipizide 10 mg tablet See Rx Instructions .Route .COMPLEX 12/25/21 02/13/25 History metformin 1,000 mg tablet 1,000 mg PO BID 12/25/21 02/13/25 History prednisone 5 mg tablet 5 mg PO BID 12/25/21 02/13/25 History warfarin 5 mg tablet See Rx Instructions .Route .COMPLEX 12/25/21 02/13/25 History acetaminophen 500 mg tablet 500 - 1,000 mg PO Q6H PRN Pain 12/30/22 02/13/25 History (Tylenol Extra Strength) enalapril maleate 10 mg tablet 10 mg PO QAM #30 tabs 01/03/23 02/13/25 Rx metoprolol tartrate 50 mg tablet 50 mg PO BID #60 tabs 01/03/23 02/13/25 Rx dulaglutide 4.5 mg/0.5 mL 4.5 mg subcut WK 11/06/24 02/13/25 History subcutaneous pen injector (Trulicity) L.acidop,casei,lactis,rham-B.lact,xenia 1 cap PO DAILY #30 caps 11/16/24 02/13/25 Rx 625 mg (10 billion cell) capsule (Advanced Probiotic) doxycycline hyclate 100 mg capsule 100 mg PO BID #6 caps 02/12/25 02/13/25 Rx furosemide 20 mg tablet 20 mg PO DAILY #30 tabs 02/12/25 02/13/25 Rx umeclidinium 62.5 mcg-vilanterol 1 inh inhalation DAILY #14 ea 02/12/25 02/13/25 Rx 25 mcg/actuation powdr for inhalation (Anoro Ellipta) Patient History Medical History Chronic steroid use Polymyalgia rheumatica takes prednisone BID to manage. Osteoarthritis Diabetes mellitus, type 2 NIDDM On anticoagulant therapy Hyperlipidemia Hypertension Atrial fibrillation follows with Dr Sebastian, no cardioversion. managed with medications. Surgical History History of cataract surgery History of arthroscopy of left shoulder S/P left knee arthroscopy History of colonoscopy H/O eye surgery bilateral tear duct procedures to place a "drain" Family History Other No family history of adverse response to anesthesia Social History Smoking Status: Former smoker Tobacco Type: Cigarettes Second Hand Exposure: No; Do You Dip or Chew Tobacco: No; Hx Alcohol Use: No Hx Substance Use: No Preferred Language: Indonesian Communication Ability: Effective District Manager In Training Required: No Beliefs That Will Affect Care: None marital status: Current Living Situation: Spouse Current Living Situation Comment: one story home with one step to front door Feels Safe at Home: Yes Safety Concerns: Feels Safe At This Time Assistive Devices: None Review of Systems Review of Systems: All systems reviewed & are unremarkable except as noted in HPI & below Physical Exam Physical Exam: Constitutional: Patient appears to be of their stated age. Patient is in no apparent distress. Patient is well-developed. Eyes: Pupils are equal round and reactive to light. Conjunctivae are normal. Anicteric sclera. Ears nose, mouth and throat: No perioral cyanosis. Neck: Trachea is midline. Visual inspection is normal. Respiratory: Clear to auscultation bilaterally. No use of accessory muscles. No significant clubbing noted. Cardiovascular: Irregularly irregular. 2 out of 6 systolic flow murmur. No edema. Gastrointestinal: Normal bowel sounds, soft, nontender and nondistended. No hepatosplenomegaly noted. Musculoskeletal: No cyanosis. Patient is able to move all extremities. Strength is 5 out of 5 in the upper and lower extremities. Skin: No rashes, warm dry and intact. Neurologic: No obvious focal neurological deficits seen. Psychiatric: Alert and oriented x3 with a euthymic affect. Results & Data Results & Data Vital Signs (Past 12 Hours) Vital Signs Temp Pulse Pulse Resp BP BP Pulse Ox 02/14/25 08:11 02/14/25 07:59 100 02/14/25 07:20 78 02/14/25 07:18 36.3 C L 87 18 124/77 100 02/14/25 04:46 36.5 C 85 17 102/64 100 O2 Del Method O2 Flow Rate 02/14/25 08:11 Nasal Cannula 3 02/14/25 07:59 Nasal Cannula 3 02/14/25 07:20 02/14/25 07:18 Room Air 02/14/25 04:46 Nasal Cannula 3 PG Care Time/CCT Total # of Minutes Spent Total Time Spent: 78 Total Time Spent with Patient: Total time spent is greater than 50% in coordination of care (as documented) at patient's floor/unit and/or counseling patient: Coding Level of Care Code 66229 INT INP/OBS CARE 75MIN Diagnoses Abnormal CT scan, chest R93.89 Syncope R55 Encounter type: initial encounter On prednisone therapy Z79.52
--- NOTE | 2025-02-14 16:33 | Hospitalist Progress Note ---
Date of Service February 14, 2025 Assessment & Plan (1) SIRS (systemic inflammatory response syndrome): (2) Polymyalgia rheumatica: (3) Diabetes mellitus, type 2: (4) Atrial fibrillation: (5) Hypertension: (6) Hyperlipidemia: (7) Hypomagnesemia: (8) Pneumonia: Plan Patient is a 89-year-old male with history of diastolic heart failure, A-fib, diabetes mellitus, polymyalgia rheumatica on chronic prednisone, recently thought to have COPD and other medical problems who was hospitalized discharged yesterday from [facility] after being treated for community-acquired pneumonia, respiratory failure and suspected acute on chronic diastolic heart failure who presents with history of generalized weakness and a near syncopal episode at home.. SIRS; likely in the setting of pneumonia: Elevated lactic acidosis: Patient presents to the hospital with near syncope ECG A-fib without RVR Requiring 3L on admission Procalcitonin 0.91 UA negative Biofire negative Received 2LNS in ED; given crackles in bases upon auscultation hold additional IV fluids for now and check BNP (last admit BNP 189) Sputum culture from previous admission grew E. coli; repeat now CXR: negative for acute cardiopulmonary disease Chest chest CT from previous admission noting bilateral pneumonia and emphysema with bilateral groundglass opacities and left-sided pleural effusion Sputum culture ordered; previous admission in October 2024 sputum culture grew E. coli Was placed on Zosyn in the ED; continue Zosyn and Doxy for now; adjust based on culture results MRSA screen negative Pulmonology consulted, appreciate recs Near syncope: Likely in the setting of acute infection as listed above Head CT negative for ICH, midline shift or SDH Most recent echo 11/05 EF 60 to 65%; repeat ECHO Orthostatic blood pressures unremarkable Brain MRI pending Carotid dopplers pending PT OT Hypomagnesemia: replete as needed Atrial fibrillation: Heart rate mid 90s to low 100s Takes Lopressor; continue (did not take medications today) Continue Coumadin, INR 3.0; reduce dose to 2.5 today---coumadin currently on hold for INR of 4.3 Check PT/INR in a.m. Thoracic Aorta Aneurysm Last echocardiogram from October 2024 with EF of 60 to 65%, repeat ECHO while here Mediastinal Adenopathy Likely in setting of acute infection above Will need repeat chest imaging to ensure resolution as an outpt Type 2 diabetes mellitus chronic Hold home medications Placed on SSI ACHS while inpatient A1c in a.m. Polymyalgia rheumatica Takes prednisone; continue Disposition: Diet: DMII DVT prophylaxis: on Coumadin CODE STATUS:DNR/DNI; confirmed at bedside with Admission and Anticipated Discharge Date Admission Date: February 13, 2025 Subjective pt was seen with family members at bedside Course was discussed and extensive discussion of labwork and results up until this point Pt stating that he "feels great" Denies SOB, chest pain States he has not yet taken his medications on discharge, had presyncopal episode before Review of Systems Review of Systems: All systems reviewed & are unremarkable except as noted in Subjective Physical Exam Physical Exam: General: Alert, oriented. No acute distress HEENT: NC/AT CV: RRR, Resp: Breath sounds clear bilaterally, no increased effort of breathing Abdomen: Soft, nontender Extremities: Trace edema in lower extremities bilaterally. Results & Data Results & Data Vital Signs (Past 12 Hours) Vital Signs Temp Pulse Pulse Resp BP BP Pulse Ox 02/14/25 15:24 36.4 C L 83 16 118/72 96 02/14/25 11:55 36.4 C L 76 16 108/62 93 02/14/25 08:11 02/14/25 07:59 100 02/14/25 07:20 78 02/14/25 07:18 36.3 C L 87 18 124/77 100 02/14/25 04:46 36.5 C 85 17 102/64 100 O2 Del Method O2 Flow Rate 02/14/25 15:24 Room Air 02/14/25 11:55 Room Air 02/14/25 08:11 Nasal Cannula 3 02/14/25 07:59 Nasal Cannula 3 02/14/25 07:20 02/14/25 07:18 Room Air 02/14/25 04:46 Nasal Cannula 3
[2025-02-14] MEDS: GADOBUTROL 65ML VIAL IV ONE (20:42)
--- NOTE | 2025-02-14 23:10 | Magnetic Resonance Report ---
Exam(s): MRI HEAD W/WO Contrast IV Amt: 8mL Gadavist given existing IV EXAM: MR Head Without and With Intravenous Contrast CLINICAL HISTORY: Reason for exam: presyncope. TECHNIQUE: Magnetic resonance images of the head/brain without and with intravenous contrast in multiple planes. CONTRAST: Patient received 8mL Gadavist given existing IV of IV contrast COMPARISON: CT scan dated 02/13/2025. FINDINGS: Brain: No intracranial hemorrhage or infarct. There is signal abnormality within the white matter. No abnormal contrast enhancement is seen.. Ventricles: There is prominence of ventricular system with deepening of the sulci consistent with cortical and central atrophy. Sinuses: There is a retention polyp or cyst in left maxillary sinus. There is opacification of the left frontal sinus. Mastoid air cells: Unremarkable as visualized. No mastoid effusion. Orbits: Unremarkable as visualized. IMPRESSION: Atrophy. Nonspecific white matter disease. Electronically signed by: Lencho Juan MD 02/14/25 23:08 PM
--- NOTE | 2025-02-14 23:29 | Ultrasound Report ---
Exam(s): US CAROTID EXAM: US Duplex Bilateral Extracranial Arteries CLINICAL HISTORY: presyncope. TECHNIQUE: Real-time duplex ultrasound scan of the extracranial arteries integrating B-mode two-dimensional vascular structure, Doppler spectral analysis and color flow Doppler imaging. COMPARISON: No relevant prior studies available. FINDINGS: Peak systolic velocities (cm/sec): Right CCA 125 Rt ICA- 111 Rt ECA- 125 ICA/CCA ratio: 0.92 Lt CCA- 83 Lt ICA- 88 Lt ECA- 132 ICA/CCA ratio: 0.94 Bilateral carotid bulb plaque is identified. Antegrade flow in the bilateral vertebral arteries. No lymphadenopathy. CAROTID STENOSIS REFERENCE USING IAC CRITERIA: Mild - <50% stenosis. ICA PSV is less than 180 cm/s and plaque or intimal thickening is visible. Moderate - 50-69% stenosis. ICA PSV is 180 to 230 cm/s and plaque is visible. Severe - 70-94% stenosis. ICA PSV is more than 230 cm/s and visible plaque with lumen narrowing is seen. Near occlusion - 95-99% stenosis. ICA PSV is variable and significant plaque with luminal narrowing is seen. Occluded - 100% stenosis. No flow identified. IMPRESSION: Mild bilateral carotid bulb plaque without a hemodynamically significant stenosis. Electronically signed by: Germán Merchant M.D. 02/14/25 23:28 PM
[2025-02-15 06:13] LABS: Basophils # (auto) 0.03 K/uL (0.00-0.20); Basophils % (auto) 0.3 %; Eosinophils # (auto) 0.13 K/uL (0.00-0.50); Eosinophils % (auto) 1.4 %; Hematocrit (blood only) 32.9 % (42.0-52.0); Hemoglobin 10.7 g/dl (14.0-18.0); Lymphocytes # (auto) 0.96 K/uL (1.20-3.40); Mean Corpuscular Hemoglobin 29.2 pg (25.0-34.0); Mean Corpuscular Hgb Conc 32.5 g/dL (32.0-36.0); Mean Corpuscular Volume 89.9 fL (80.0-100.0); Mean Platelet Volume 10.9 fL (9.4-12.4); Monocytes # (auto) 0.75 K/uL (0.11-0.59); Monocytes % (auto) 7.8 %; Neutrophils # (auto) 7.63 K/uL (1.40-6.50); Neutrophils % (auto) 79.5 %; Platelet Count 282 K/uL (130-400); RDW Standard Deviation 46.5 fL (36.4-46.3); Red Blood Count 3.66 M/uL (4.70-6.10)
[2025-02-15 06:34] LABS: BUN Creatinine Ratio 18.9 (10-20); Calcium 8.7 mg/dl (8.6-10.3); Creatinine Clr Calc Pharmacy 46.7 ml/min; Magnesium 1.9 mg/dl (1.7-2.4); Phosphorus 3.5 mg/dl (2.5-4.9)
[2025-02-15 06:39] LABS: INR 3.4 (0.9-1.1); Prothrombin Time 33.3 Seconds (9.0-12.0)
[2025-02-15] MEDS: LANTUS PER UNIT CHARGE SQ SCH (08:08)
[2025-02-15 11:45] VITALS: RESP 18; TEMP 98.2; O2SAT 92
--- NOTE | 2025-02-15 11:52 | Discharge Summary ---
Discharge Summary Date of Service February 15, 2025 Principal Dx & Hospital Course #1 = Principal Diagnosis (1) SIRS (systemic inflammatory response syndrome): (2) Polymyalgia rheumatica: (3) Diabetes mellitus, type 2: (4) Atrial fibrillation: (5) Hypertension: (6) Hyperlipidemia: (7) Hypomagnesemia: (8) Pneumonia: Plan Patient is a 89-year-old male with history of diastolic heart failure, A-fib, diabetes mellitus, polymyalgia rheumatica on chronic prednisone, recently thought to have COPD and other medical problems who was hospitalized discharged yesterday from [facility] after being treated for community-acquired pneumonia, re spiratory failure and suspected acute on chronic diastolic heart failure who presents with history of generalized weakness and a near syncopal episode at home.. SIRS; likely in the setting of pneumonia: Elevated lactic acidosis: Patient presents to the hospital with near syncope ECG A-fib without RVR Requiring 3L on admission Procalcitonin 0.91 UA negative Biofire negative Received 2LNS in ED; given crackles in bases upon auscultation hold additional IV fluids for now and check BNP (last admit BNP 189) Sputum culture from previous admission grew E. coli; repeat now CXR: negative for acute cardiopulmonary disease Chest chest CT from previous admission noting bilateral pneumonia and emphysema with bilateral groundglass opacities and left-sided pleural effusion Sputum culture ordered; previous admission in October 2024 sputum culture grew E. coli Was placed on Zosyn in the ED; continue Zosyn and Doxy for now; adjust based on culture results MRSA screen negative Pulmonology consulted, appreciate recs -finish course of abx for CAP at home Near syncope: Likely in the setting of acute infection as listed above Head CT negative for ICH, midline shift or SDH Most recent echo 11/05 EF 60 to 65%; repeat ECHO -likely in setting of dehydration Hypomagnesemia: replete as needed Atrial fibrillation: Heart rate mid 90s to low 100s Takes Lopressor; continue (did not take medications today) Continue Coumadin, INR 3.0; reduce dose to 2.5 today---coumadin currently on hold for INR of 4.3 Thoracic Aorta Aneurysm Last echocardiogram from October 2024 with EF of 60 to 65%, repeat ECHO while here Mediastinal Adenopathy Likely in setting of acute infection above Will need repeat chest imaging to ensure resolution as an outpt Type 2 diabetes mellitus chronic Hold home medications Placed on SSI ACHS while inpatient A1c in a.m. Polymyalgia rheumatica Takes prednisone; continue Notes For Next Care Provider 79 yo male with pmhx of A-fib, NIDDM, HTN, PMR, COPD emphysema; [id number] history quit smoking in the early . Presented for concern for syncope and some vomiting. On medicine, given abx and some gentle fluids with improvement in condition. On 02/15/2025 patient felt back to baseline and is medically stable for discharge home. Medication Changes From Visit -see below Admission HPI Per Admitting Provider Mr. Mcpherson is an 79 year old male that presented to the ED meeting SIRS criteria with with leukocytosis 19.85, lactic acidosis 2.4 increasing to3.0, and near syncope. his indicated that he was at baseline yesterday upon discharge and went to bed as his normal self last evening. This morning he woke and ate scrambled eggs and had coffee and then when he went to stand from the table his had to hold him to stabilize him as he experienced a near syncope episode. This most recent admission was 02/10 to 02/12 and prior to that he had a more lengthy admission October to November 16, 2024. Pulmonology saw on 02/12 for results of a chest CT this previous admission resulting in bilateral pneumonia groundglass opacities bilaterally with a left-sided pleural effusion. 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 In the ED she received 2L NS and was started on Zosyn. Patient was discharged yesterday from the [facility] on oral antibiotics; unclear whether or not he did take his antibiotics as when I was talking to him about his medications he was unclear about dosing etc. Past medical history includes A-fib, NIDDM, HTN, PMR, COPD emphysema; [id number] history quit smoking in the early . discussed with patient's at bedside they do have 3 sons who live in the area but do not visit him routinely unless she calls them. Patient unaware if he took his antibiotics when he was discharged. He did say that he does not take his medications this morning. He does take his Coumadin in the morning. Patient will be admitted for further evaluation and management of SIRS criteria in the setting of pneumonia which likely required additional IV antibiotics. Will place on broad-spectrum antibiotics Zosyn and include doxycycline. Blood cultures were obtained in the emergency room, will trend lactate until less than 2.0, procalcitonin pending, PT OT, will reduce Coumadin dosing and monitor for supratherapeutic coagulation, if no improvement over the next 24 hours would r einvolve pulmonary as they are familiar with this patient. Discharge Exam Gen: A&O 3 NAD HEENT: NCAT, EOMI, not icteric. External ears normal. No rhinorrhea. Moist mucous membranes. Neck: Supple, full range of motion, no observable masses, No meningeal sign. Lungs: No Respiratory distress. CV: RRR, no edema. Abdomen: Soft, nondistended, No rebound tenderness. MSK: No joint swelling, no redness. Skin: No rashes, petechiae, lesions. Normal color per patient. Neuro: Normal Gait, Grossly intact. Psych: Appropriate for situation. Updated Medication List Medication Instructions Recorded Confirmed Type alendronate 70 mg tablet (Fosamax) 70 mg PO WK 12/25/21 02/13/25 History atorvastatin 20 mg tablet (Lipitor) 20 mg PO PM 12/25/21 02/13/25 History cholecalciferol (vitamin D3) 50 50 mcg PO QAM 12/25/21 02/13/25 History mcg (2,000 unit) tablet (Vitamin D3) duloxetine 20 mg capsule,delayed 20 mg PO QPM 12/25/21 02/13/25 History release glipizide 10 mg tablet See Rx Instructions .Route .COMPLEX 12/25/21 02/13/25 History metformin 1,000 mg tablet 1,000 mg PO BID 12/25/21 02/13/25 History prednisone 5 mg tablet 5 mg PO BID 12/25/21 02/13/25 History warfarin 5 mg tablet See Rx Instructions .Route .COMPLEX 12/25/21 02/13/25 History acetaminophen 500 mg tablet 500 - 1,000 mg PO Q6H PRN Pain 12/30/22 02/13/25 History (Tylenol Extra Strength) enalapril maleate 10 mg tablet 10 mg PO QAM #30 tabs 01/03/23 02/13/25 Rx metoprolol tartrate 50 mg tablet 50 mg PO BID #60 tabs 01/03/23 02/13/25 Rx dulaglutide 4.5 mg/0.5 mL 4.5 mg subcut WK 11/06/24 02/13/25 History subcutaneous pen injector (Trulicity) L.acidop,casei,lactis,rham-B.lact,xenia 1 cap PO DAILY #30 caps 11/16/24 02/13/25 Rx 625 mg (10 billion cell) capsule (Advanced Probiotic) doxycycline hyclate 100 mg capsule 100 mg PO BID #6 caps 02/12/25 02/13/25 Rx furosemide 20 mg tablet 20 mg PO DAILY #30 tabs 02/12/25 02/13/25 Rx umeclidinium 62.5 mcg-vilanterol 1 inh inhalation DAILY #14 ea 02/12/25 02/13/25 Rx 25 mcg/actuation powdr for inhalation (Anoro Ellipta) amoxicillin 500 mg-potassium 1 tab PO BID 5 days #10 tabs 02/15/25 Rx clavulanate 125 mg tablet (Augmentin) doxycycline hyclate 100 mg capsule 100 mg PO BID 5 days #10 caps 02/15/25 Rx Hospital Stay Data Consultations 02/13/25 14:05 ED Decision to Admit Stat 02/14/25 10:46 Consult Pulmonology Routine Diagnostic Imagining Performed 02/13/25 11:09 CT head/brain wo con Stat 02/14/25 17:56 MRI Brain [MR brain wo/w con] Routine US carotid doppler BI Routine Pending Results Patient Have Any Pending Studies at Discharge: No Discharge Instructions Given to Patient (Per Discharging Provider) 1. Please finish course of abx. 2. Take medications as prescribed, stop taking furosemide. 3. Stay hydrated! Total Time Total Time Spent Total Time Spent (In Minutes): I spent a total of 35 minutes in direct patient care, including [id number] time with the patient and/or family, reviewing medical records, ordering and reviewing diagnostic tests, and coordinating care with other healthcare providers. This time includes: history taking, physical examination, medical decision making, counseling, ECG interpretation, imaging interpretation, lab interpretation, orders, and education, excluding time spent in the performance of separately billed services.
[2025-02-15 13:45] VITALS: BP 119/70; PULSE 83
== END 2025-02-15 14:34 | disposition home or self-care (01) | DRG 194 ==
LOC: ED 10:42 → 2E 14:12 → SUATTDRO 14:12 → 2E 16:45

== ENCOUNTER 2025-08-24 07:23 | Inpatient (IN) ==
--- NOTE | 2025-08-24 07:34 | Emergency Department Note ---
History of Present Illness General Chief complaint: Weakness Stated complaint: WEAKNESS Time Seen by Provider: 08/24/25 07:24 History of Present Illness This is an 79-year-old male that presents to the emergency department via EMS with complaints of "weakness". History obtained from patient as well as medic at bedside. Reportedly the patient underwent lung biopsy yesterday. Overnight developed a fever, vomiting and overall weakness. EMS notes that on arrival to the home the patient was found to be hypoxic in the high 80s. He developed a fever overnight as well. He is anticoagulated on warfarin noting history of atrial fibrillation. The patient denies any pain at this time. and son presented to bedside. They noted that yesterday around 5 PM he began to feel chilled, then dry heaves throughout the night and then temperature at 4 AM was 101 F. Per review of the EMR the patient of a similar presentation in October of this year when patient was septic, ultimately had pneumonia and required ICU stay and vasopressor support. Home Medications Medication Instructions Recorded Confirmed Type alendronate 70 mg tablet (Fosamax) 70 mg PO WK 12/25/21 08/24/25 History atorvastatin 20 mg tablet (Lipitor) 20 mg PO QPM 12/25/21 08/24/25 History duloxetine 20 mg capsule,delayed 20 mg PO QPM 12/25/21 08/24/25 History release prednisone 5 mg tablet 5 mg PO BID 12/25/21 08/24/25 History warfarin 5 mg tablet 2.5 - 5 mg PO DAILY 12/25/21 08/24/25 History enalapril maleate 10 mg tablet 10 mg PO QAM #30 tabs 01/03/23 08/24/25 Rx metoprolol tartrate 50 mg tablet 50 mg PO BID #60 tabs 01/03/23 08/24/25 Rx acetaminophen 500 mg capsule 1,000 mg PO UD PRN Pain 07/26/25 08/24/25 History lancets 33 gauge (OneTouch Delica 07/26/25 07/26/25 History Plus Lancet) tirzepatide 2.5 mg/0.5 mL 2.5 mg subcut WK 07/26/25 08/24/25 History subcutaneous pen injector (Ismael) B12 + Vitamin D 2 dose PO QPM 08/14/25 08/24/25 History insulin degludec 200 unit/mL (3 28 unit subcut QAM 08/14/25 08/24/25 History mL) subcutaneous pen (Tresiba FlexTouch U-200 insulin) apixaban 2.5 mg tablet (Eliquis) 2.5 mg PO BID 30 days #60 tabs 08/24/25 Rx Allergies Allergy/AdvReac Type Severity Reaction Status Date / Time oxycodone Allergy Intermediate WHEEZING, Verified 08/23/25 06:07 maybe trouble breathing Past Med/Surg History Problem List (Updated 08/24/25 @ 15:38 by Himanshu Nix PA-C) Pulmonary cavitary lesion Elevated troponin Hypoxia (Acute) Aspergillus pneumonia (Acute) Ex-smoker Pulmonary mass Chronic anticoagulation (Acute) Pseudohyponatremia (Acute) On prednisone therapy Syncope Abnormal CT scan, chest Generalized weakness (Acute) COPD with emphysema Pulmonary edema (Acute) Scrotal swelling Tight foreskin HTN, goal below 140/90 Steroid-induced osteoporosis Permanent atrial fibrillation Encounter for pre-operative examination Weakness (Acute) Medical History (Updated 08/24/25 @ 15:38 by Himanshu Nix PA-C) Hx of non-ST elevation myocardial infarction (NSTEMI) 10/2024 [facility] admission: type II NSTEMI vs demand ischemia Bronchiectasis Pulmonary mass COPD (chronic obstructive pulmonary disease) emphysema History of pneumonia pt was tx for PNA based on 07/2025 chest imaging (per pulm, PNA vs mass) History of sepsis (10/2024) hospitalized [facility]. History of recent hospitalization pt has had multiple recent hospitalizations; most recent: [facility] 07/02-07/04/25: pt with vomiting 2/2 starting GLP1 and possible aspiration PNA; required 2L O2 NC for short time but weaned; D/C on Augmentin Osteoporosis Aspiration pneumonitis hx hospitalization [facility] 10/2024. Chronic steroid use for PMR Polymyalgia rheumatica takes prednisone BID to manage. Osteoarthritis Diabetes mellitus, type 2 On anticoagulant therapy coumadin for afib Hyperlipidemia Hypertension Atrial fibrillation Surgical History History of left cataract surgery History of right cataract surgery History of arthroscopy of left shoulder S/P left knee arthroscopy History of colonoscopy H/O eye surgery bilateral tear duct procedures to place a "drain" Family History Other No family history of adverse response to anesthesia Social History Smoking Status: Former smoker Tobacco Type: Cigarettes Age Started Using Tobacco: 12; Age Quit Using Tobacco: 38; packs per day: 2; Second Hand Exposure: No; Do You Dip or Chew Tobacco: No; Hx Alcohol Use: No Hx Substance Use: No Preferred Language: Occitan Communication Ability: Effective Shaper Operator Required: No Beliefs That Will Affect Care: None marital status: Current Living Situation: Spouse Current Living Situation Comment: one story house with one cat Feels Safe at Home: Yes Safety Concerns: Feels Safe At This Time Assistive Devices: Glasses and Hearing Aid - Bilateral Review of Systems A total of 10 systems reviewed and were otherwise negative Physical Exam Vital Signs Vital Signs - 24 hr 08/24/25 07:25 08/24/25 07:33 08/24/25 07:36 Temperature 37.1 C Temperature Source Oral Pulse Rate 113 H 101 H 109 H Pulse Rate from SpO2 Sensor 103 H Pulse Rhythm Irregular Irregular Pulse Strength Normal Respiratory Rate 16 18 25 H Respiratory Effort / Characteristics Non-Labored Spontaneous Respiratory Depth Normal Respiratory Pattern Regular Blood Pressure 108/63 Blood Pressure [Right Arm] Blood Pressure Mean 78 Blood Pressure Mean [Right Arm] Blood Pressure Position Sitting Pulse Oximetry 87 L 95 92 Oxygen Delivery Method Room Air Nasal Cannula Nasal Cannula Oxygen Flow Rate 2 2 Sepsis Recent Fever Within 48 Hours Yes Sepsis New/Unexplained Change in Mental Status N/A Sepsis Action Taken by Nursing No Action Required Pulse Oximetry Post Tiitration 08/24/25 07:51 08/24/25 08:00 08/24/25 08:02 Temperature Temperature Source Pulse Rate 89 Pulse Rate from SpO2 Sensor 89 Pulse Rhythm Pulse Strength Respiratory Rate 27 H Respiratory Effort / Characteristics Respiratory Depth Respiratory Pattern Blood Pressure 114/88 Blood Pressure [Right Arm] Blood Pressure Mean 89 Blood Pressure Mean [Right Arm] Blood Pressure Position Pulse Oximetry 87 L 92 Oxygen Delivery Method Nasal Cannula Nasal Cannula Oxygen Flow Rate 2 2 Sepsis Recent Fever Within 48 Hours Sepsis New/Unexplained Change in Mental Status Sepsis Action Taken by Nursing Pulse Oximetry Post Tiitration 95 08/24/25 08:06 08/24/25 08:11 08/24/25 08:30 Temperature Temperature Source Pulse Rate 96 H Pulse Rate from SpO2 Sensor Pulse Rhythm Pulse Strength Respiratory Rate 16 Respiratory Effort / Characteristics Non-Labored Spontaneous Respiratory Depth Normal Respiratory Pattern Regular Blood Pressure 100/62 Blood Pressure [Right Arm] 114/88 Blood Pressure Mean 84 Blood Pressure Mean [Right Arm] 96 Blood Pressure Position Pulse Oximetry 95 Oxygen Delivery Method Nasal Cannula Oxygen Flow Rate 2 Sepsis Recent Fever Within 48 Hours Sepsis New/Unexplained Change in Mental Status Sepsis Action Taken by Nursing Pulse Oximetry Post Tiitration 08/24/25 08:30 08/24/25 08:30 Temperature Temperature Source Pulse Rate 91 H Pulse Rate from SpO2 Sensor 97 H Pulse Rhythm Pulse Strength Respiratory Rate 22 Respiratory Effort / Characteristics Respiratory Depth Respiratory Pattern Blood Pressure 100/62 Blood Pressure [Right Arm] Blood Pressure Mean 84 Blood Pressure Mean [Right Arm] Blood Pressure Position Pulse Oximetry 96 Oxygen Delivery Method Nasal Cannula Oxygen Flow Rate 5 Sepsis Recent Fever Within 48 Hours Sepsis New/Unexplained Change in Mental Status Sepsis Action Taken by Nursing Pulse Oximetry Post Tiitration VITAL SIGNS - Vital signs and nursing notes were reviewed. Normotensive. Mildly tachycardic. Hypoxic in the mid to high 80s on room air. GENERAL -79-year-old male appearing his stated age who is in no acute distress but appears ill. Overall communicates well with provider and answers questions appropriately. SKIN - Without rashes. HEAD - NC/AT. EYES - PERRL with EOMI bilaterally. Sclera anicteric. EARS - No deformities of external structures noted on gross examination bilaterally. NOSE - Midline and without cyanosis. No epistaxis or purulent drainage noted. Septum midline without deviation or septal hematoma noted. MOUTH/OROPHARYNX - Without perioral cyanosis. Buccal mucosa pink and moist and without leukoplakia. Tongue midline with equal elevation of palate bilaterally. No tonsillar hypertrophy, erythema, or exudates noted. Fair dentition noted. NECK - Neck with FROM. No nuchal rigidity. LUNGS -mildly diminished breath sounds bilaterally. CARDIAC - RRR ABDOMEN - Abdominal contour normal without pulsations or visible masses. BS normoactive all four quadrants. No tenderness, palpable masses, hepatosplenomegaly, or ascites noted. EXTREMITIES - No clubbing or peripheral cyanosis. +5/5 strength noted in UE/LE bilaterally. NEUROLOGIC - Cranial nerves II through XII grossly intact. PSYCH -alert, oriented and pleasant on exam Course Administered Medications Apixaban (Apixaban 2.5 Mg Tab) 2.5 mg PO BID AIMEE Stop: 09/23/25 10:59 Last Admin: 08/24/25 12:39 Dose: 2.5 mg Documented By: RACHEL Azithromycin (Zithromax) 500 mg in 255 mls @ 127.5 mls/hr IV Q24H [facility] Stop: 08/29/25 11:59 Last Infusion: 08/24/25 14:46 Dose: Infused Documented By: Admin: 08/24/25 12:39 Dose: 127.5 mls/hr Documented By: RACHEL Sodium Chloride (Nss) 1,000 mls @ 80 mls/hr IV .[id number] [facility] Stop: 08/27/25 10:44 Last Admin: 08/24/25 11:51 Dose: 80 mls/hr Documented By: RACHEL Voriconazole 480 mg/ Sodium (Chloride) 100 mls @ 50 mls/hr IV Q12H [facility] Stop: 08/25/25 01:59 Last Infusion: 08/24/25 15:24 Dose: Infused Documented By: Admin: 08/24/25 13:16 Dose: 50 mls/hr Documented By: RACHEL Insulin Aspart (Insulin Aspart Per Unit Charge) 0 units SC ACHS [facility] Stop: 09/23/25 11:29 Last Admin: 08/24/25 12:58 Dose: 2 units Documented By: RACHEL Co-signed By: ZBIGNIEW Insulin Glargine (Lantus Per Unit Charge) 10 units SQ DAILY [facility] Stop: 09/23/25 11:59 Last Admin: 08/24/25 12:59 Dose: 10 units Documented By: RACHEL Co-signed By: ASA Discontinued Medications Piperacillin Sod/Tazobactam Sod (Zosyn) 4.5 gm in 100 mls @ 200 mls/hr IV NOW ONE; Protocol Stop: 08/24/25 08:02 Last Infusion: 08/24/25 09:53 Dose: Infused Documented By: nrs Admin: 08/24/25 08:03 Dose: 200 mls/hr Documented By: wilber Sodium Chloride (Nss) 500 mls @ 500 mls/hr IV .Q1H ONE Stop: 08/24/25 08:38 Last Infusion: 08/24/25 09:54 Dose: Infused Documented By: nrs Admin: 08/24/25 08:04 Dose: 500 mls/hr Documented By: wilber Acetaminophen (Ofirmev) 1,000 mg in 100 mls @ 400 mls/hr IV NOW STA Stop: 08/24/25 10:36 Last Infusion: 08/24/25 10:57 Dose: Infused Documented By: Admin: 08/24/25 10:27 Dose: 400 mls/hr Documented By: DEJAN Sodium Chloride (Nss) 500 mls @ 999 mls/hr IV .Q31M ONE Stop: 08/24/25 11:45 Last Infusion: 08/24/25 11:51 Dose: Infused Documented By: Admin: 08/24/25 11:20 Dose: 999 mls/hr Documented By: RACHEL Medical Decision Making Laboratory Data 08/24/25 07:31 08/24/25 07:31 Lab Results 08/24/25 08/24/25 08/24/25 Range/Units 07:31 07:35 07:41 WBC 14.76 H (4.8-10.8) K/ul RBC 4.32 L (4.70-6.10) M/uL Hgb 12.6 L (14.0-18.0) g/dL POC Hgb 12.9 L (14.0-18.0) g/dl Hct 38.8 L (42.0-52.0) % POC Hct 38 L (42-52) % MCV 89.8 (80.0-100.0) fL MCH 29.2 (25.0-34.0) pg MCHC 32.5 (32.0-36.0) g/dL RDW Std Deviation 48.2 H (36.4-46.3) fL RDW Coeff of Roverto 14.8 H (11.5-14.5) % Plt Count 196 (130-400) K/uL MPV 11.6 (9.4-12.4) fL Immature Gran % (Auto) 0.7 % Neut % (Auto) 74.6 % Lymph % (Auto) 12.6 % [place] % (Auto) 10.0 % Eos % (Auto) 1.8 % Baso % (Auto) 0.3 % Neut # (Auto) 10.99 H (1.40-6.50) K/uL Lymph # (Auto) 1.86 (1.20-3.40) K/uL [place] # (Auto) 1.48 H (0.11-0.59) K/uL Eos # (Auto) 0.27 (0.00-0.50) K/uL Baso # (Auto) 0.05 (0.00-0.20) K/uL Immature Gran # (Auto) 0.11 (0.01-0.20) K/uL PT 11.9 (9.0-12.0) Seconds INR 1.1 (0.9-1.1) APTT 26 (21-31) Seconds PTT Ratio 1.0 POC Sodium 138 (135-144) mmol/L Sodium 138 (136-145) mmol/L POC Potassium 3.9 (3.3-5.0) mmol/L Potassium 4.0 (3.5-5.1) mmol/L POC Chloride 100 L (101-112) mmol/L Chloride 102 (98-107) mmol/L Carbon Dioxide 28 (21-32) mmol/L POC Total CO2 26 (24-31) mmol/L Anion Gap 8 (3-11) POC Anion Gap 17.0 (16-25) mmol/L POC BUN 36 H (7-18) mg/dl BUN 38 H (6-23) mg/dl Creatinine 1.66 H (0.6-1.4) mg/dl POC Creatinine 1.7 H (0.6-1.3) mg/dl Est Cr Clr Drug Dosing 36.0 ml/min eGFR 41.16 BUN/Creatinine Ratio 22.9 H (10-20) Glucose 208 H (70-99(Fasting)) mg/dl POC Glucose (other) 201 H (70-99) mg/dl Lactate 1.9 (0.4-2.0) mmol/L Calcium 9.2 (8.6-10.3) mg/dl POC Ioniz Calcium Lisa 1.17 (1.12-1.32) mmol/l Magnesium 1.6 L (1.7-2.4) mg/dl Total Bilirubin 0.9 (0.2-1.0) mg/dl AST 13 (13-39) U/L ALT 13 (7-52) U/L Alkaline Phosphatase 40 (34-104) U/L Troponin I High Sens 27.9 H (0-20) pg/ml Total Protein 7.2 (6.0-8.3) gm/dl Albumin 3.5 (3.4-5.0) gm/dl Globulin 3.7 (2.5-4.0) gm/dl Albumin/Globulin Ratio 0.9 (0.9-2) Lipase 10 L (11-82) U/L Procalcitonin 1.83 H (0-0.5) ng/ml TSH 1.240 (0.300-4.500) uIu/ml Nasal Screen MRSA (PCR) Negative (Negative) Adenovirus (PCR) Not Detected (NotDetected) B. pertussis DNA (PCR) Not Detected (NotDetected) B.parapertussis DNA PCR Not Detected (NotDetected) C. pneumoniae DNA (PCR) Not Detected (NotDetected) Coronavirus OC43 (PCR) Not Detected (NotDetected) Coronavirus HKU1 (PCR) Not Detected (NotDetected) Coronavirus 229E (PCR) Not Detected (NotDetected) SARS-CoV-2 (PCR) Not Detected (NotDetected) Coronavirus NL63 (PCR) Not Detected (NotDetected) Human Metapneumovir PCR Not Detected (NotDetected) Influenza Type A (PCR) Not Detected (NotDetected) Influenza Type B (PCR) Not Detected (NotDetected) M. pneumoniae (PCR) Not Detected (NotDetected) Parainfluenza 1 (PCR) Not Detected (NotDetected) Parainfluenza 2 (PCR) Not Detected (NotDetected) Parainfluenza 3 (PCR) Not Detected (NotDetected) Parainfluenza 4 (PCR) Not Detected (NotDetected) RSV (PCR) Not Detected (NotDetected) Entero/Rhino (PCR) Not Detected (NotDetected) Imaging Data Radiologist's Impression: Chest X-Ray 08/24/25 07:33 XR chest 1V portable CLINICAL HISTORY: Hypoxia. COMPARISON STUDY: Chest CT February 11, 2025. Chest radiograph August 23, 2025. PET/CT August 10, 2025. FINDINGS: The patient is mildly rotated. Asymmetric right hilar enlargement is noted. This is related to the right lower lobe mass-like opacity shown on PET/CT of August 10, 2025. Asymmetric interstitial thickening within the right lung. No pneumothorax or pleural effusion is present. Cardiomediastinal silhouette is stable IMPRESSION: 1. Cardiomegaly with pulmonary vascular congestion. 2. Asymmetric right hilar enlargement related to the right lower lobe mass-like opacity on prior PET/CT. 3. Mild asymmetric interstitial thickening within the right lung. This could represent asymmetric pulmonary edema or an infectious process. ACT 112: Negative or not required by law. Electronically signed by: Alberto Marrero M.D. 08/24/2025 8:[address] 08/24/25 07:34 CT SCAN OF THE BRAIN WITHOUT IV CONTRAST CLINICAL HISTORY: Vomiting. Altered mental status. COMPARISON STUDY: Head CT July 02, 2025. TECHNIQUE: Unenhanced axial CT scan of the brain was performed from the vertex to the skull base. A dose lowering technique was utilized adhering to the principles of ALARA. CT DOSE: 3279.12 mGy.cm FINDINGS: Brain parenchyma: No acute intracranial hemorrhage, midline shift or mass effect is present. Carter-white matter differentiation is preserved. There are no extra- axial fluid collections. There are no findings to suggest acute dural sinus thrombosis or acute territorial infarct. White matter hypodensities are unchanged and favor small vessel disease. 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 A small left parietal infarct is also unchanged. Ventricles, sulci, cisterns: There is no hydrocephalus. The basal cisterns are patent. Calvarium: Unremarkable. Sinuses and mastoids: A mucous retention cyst within the left maxillary sinus is again noted. The mastoid air cells are well pneumatized. Orbits: The bony orbits are grossly intact. IMPRESSION: No acute intracranial findings. No change in appearance of the brain. ACT 112: Negative or not required by law. Electronically signed by: Alberto Marrero M.D. 08/24/2025 9:29 AM Abdomen/Pelvis CT 08/24/25 08:16 CT OF THE ABDOMEN AND PELVIS WITHOUT CONTRAST CLINICAL HISTORY: Emesis, hypoxia, acute kidney injury. COMPARISON STUDY: CT of the abdomen and pelvis July 02, 2025 and PET/CT August 10, 2025. TECHNIQUE: Axial images of the abdomen and pelvis were obtained without IV contrast. Images were reviewed in the axial, sagittal, and coronal planes. Automated exposure control was utilized for the study. A dose lowering technique was utilized adhering to the principles of ALARA. FINDINGS: Please note that the chest CT will be reported separately. Right lower lobe airspace opacity and trace bilateral pleural effusions are better depicted on that exam. Moderate bilateral renal cortical thinning is noted. Symmetric bilateral perinephric stranding is unchanged from prior exams. There are no urinary calculi. There is no hydronephrosis. Evaluation of the remainder of the abdomen and pelvis is suboptimal on this unenhanced exam. There is suspected mild hepatic steatosis. No biliary or pancreatic ductal dilatation is present. Spleen, adrenal glands and pancreas are unremarkable. There is no evidence for a bowel obstruction. There is a moderate to large amount stool within the left colon and rectum. No lymphadenopathy is present. There are no fluid collections. The appendix is normal. No acute fractures within the lumbar spine, pelvis or hips. IMPRESSION: 1. No urinary calculi or hydronephrosis. Moderate bilateral renal cortical thinning. 2. No evidence for a bowel obstruction. Moderate to large amount of stool within the colon and rectum. 3. Right lower lobe airspace opacity suspicious for pneumonia or aspiration pneumonitis better depicted on the chest CT which will be reported separately. Trace bilateral pleural effusions. ACT 112: Negative or not required by law. Electronically signed by: Alberto Marrero M.D. 08/24/2025 9:[address] 08/24/25 08:16 CT chest diagnostic wo con CLINICAL HISTORY: 79 years-old Male with emesis, hypoxia, sarwat. Acute hypoxia TECHNIQUE: Multiaxial CT images of the chest were performed without contrast. A dose lowering technique was utilized adhering to the principles of ALARA. COMPARISON: CT abdomen and pelvis of same day, PET CT 08/10/2025 FINDINGS: Subcentimeter hypodense thyroid nodules are present. There is progression of the previously noted mediastinal lymphadenopathy. There is an index right paratracheal lymph node on image 69 series 10 measuring 1.6 x 1.3 cm, previously 1.6 x 1.1 cm. 10 mm subcarinal lymph node, previously 8 mm. Heart is enlarged with moderate coronary artery calcifications. No thoracic aortic aneurysm or pericardial effusion. There are trace pleural effusions. There is progressive consolidation within the right lung which involves the posterior segment right upper lobe and superior segment right lower lobe. Interval development of a few areas of central cavitation within the superior segment right lower lobe. Probable postobstructive changes result in additional consolidation within the basal segments of the right lower lobe with mucus plugging and groundglass densities. Mild pulmonary emphysema with areas of intralobular septal thickening. Mild subsegmental opacities of the basal left lower lobe. Tracheobronchial secretions are noted. Probable hepatic steatosis. No acute upper abdominal abnormality. No acute fracture or destructive bone lesion. IMPRESSION: 1. Progressively worsened consolidation throughout the right lung, now with areas of central cavitation suggestive of worsening pneumonia. Follow-up is needed. 2. Cardiomegaly with probable mild interstitial pulmonary edema and trace pleural effusions. 3. Mediastinal lymphadenopathy has worsened from the 08/10/2025 PET/CT, likely reactive. ACT 112: Negative or not required by law. Electronically signed by: Audi Griffiths M.D. 08/24/2025 9:49 AM MDM Narrative Patient was seen and evaluated as above in room A11b. Review was performed of nursing notes and vital signs. I did review pertinent previous visits and patient history. After obtaining a thorough history and physical examination the above work up was performed. Patient presents to us today via EMS for evaluation of fever, dry heaving/emesis, chills that developed overnight. Reportedly underwent bronchoscopy/biopsy yesterday. Patient does have history of pneumonia. Options of care were discussed with the patient. Family then presented to bedside. Chest x-ray was obtained and per my interpretation showed no pneumothorax, however on this chest x-ray there is pulmonary vascular congestion, cardiomegaly and mild asymmetrical interstitial thickening within the right lung which I do favor to be developing infectious process. EKG per my interpretation reveals A-fib with RVR rate of 105 bpm. QTc 401. QRS 94. No ST elevation on this rhythm tracing. CT of the head, chest, abdomen/pelvis performed to further assess patient's presentation. Results as above. The head CT was overall negative from an acute standpoint. Chest CT with concern for pneumonia and the abdomen/pelvis does show a moderate to large stool burden and redemonstration of the pneumonia. IV antibiotics ordered and the patient did develop a fever and IV acetaminophen ordered. IV fluids were ordered cautiously in this patient noting the patient's comorbidities. There is leukocytosis 14.76. Mild anemia with hemoglobin of 12.6. Coags normal. SARWAT noted, hypomagnesemia 1.6. Procalcitonin elevated at 1.83 within normal lactate. Patient certainly requires hospitalization. I discussed this with the hospitalist service. I did receive a phone call from test design engineer that had performed yesterday's procedure. There is concern for Aspergillus. At this time patient is admitted and infectious ease will be consulted. Please refer to further documentation regarding his stay. GCS: 15 In the evaluation and treatment of this patient the following differential diagnoses were entertained: Sepsis, ID, PE, pneumonia, pneumothorax, among others Impression & Plan Hypoxia, Weakness, Chronic anticoagulation, Aspergillus pneumonia Discharge Plan Visit Data Chief Complaint: Weakness Stated Complaint: WEAKNESS ED Provider: Isiah Smith ED Midlevel Provider: Himanshu Nix Discharge Problem: Hypoxia, Weakness, Chronic anticoagulation, Aspergillus pneumonia Patient Disposition: Admitted As Inpatient Condition: Good Discharge Instructions Interventions: ED Discharge Assessment Last Done: 08/24/25 10:34
[2025-08-24 07:57] LABS: Hematocrit (blood only) 38.8 % (42.0-52.0); Hemoglobin 12.6 g/dL (14.0-18.0); Immature Granulocytes # (auto) 0.11 K/uL (0.01-0.20); Immature Granulocytes % (auto) 0.7 %; Mean Corpuscular Hemoglobin 29.2 pg (25.0-34.0); Mean Corpuscular Volume 89.8 fL (80.0-100.0); Platelet Count 196 K/uL (130-400); RDW Standard Deviation 48.2 fL (36.4-46.3); Red Blood Count 4.32 M/uL (4.70-6.10); White Blood Count 14.76 K/ul (4.8-10.8)
[2025-08-24] MEDS: PIPERACILLIN/TAZOBACTAM 4.5 GM/100 ML BAG IV ONE (08:03)
[2025-08-24] MEDS: SODIUM CHLORIDE 0.9% 500 ML IV ONE ×2 (08:04→11:20)
[2025-08-24 08:13] LABS: Alanine Aminotransferase 13.0 U/L (7-52); Albumin Globulin Ratio 0.9 (0.9-2); Albumin Level 3.5 gm/dl (3.4-5.0); Alkaline Phosphatase 40.0 U/L (34-104); Anion Gap 8.0 (3-11); Bilirubin,Total 0.9 mg/dl (0.2-1.0); Blood Urea Nitrogen 38.0 mg/dl (6-23); Calcium 9.2 mg/dl (8.6-10.3); Carbon Dioxide 28.0 mmol/L (21-32); Chloride 102.0 mmol/L (98-107); Creatinine Clr Calc Pharmacy 36.0 ml/min; Globulin 3.7 gm/dl (2.5-4.0); Glucose 208.0 mg/dl (70-99(Fasting)); Lipase 10.0 U/L (11-82); Magnesium 1.6 mg/dl (1.7-2.4); Potassium 4.0 mmol/L (3.5-5.1); Sodium 138.0 mmol/L (136-145); Total Protein 7.2 gm/dl (6.0-8.3)
[2025-08-24 08:22] LABS: INR 1.1 (0.9-1.1); Partial Thromboplastin Time 26 Seconds (21-31); Prothrombin Time 11.9 Seconds (9.0-12.0)
--- NOTE | 2025-08-24 08:26 | XRay Report ---
XR chest 1V portable CLINICAL HISTORY: Hypoxia. COMPARISON STUDY: Chest CT February 11, 2025. Chest radiograph August 23, 2025. PET/CT August 10, 2025. FINDINGS: The patient is mildly rotated. Asymmetric right hilar enlargement is noted. This is related to the right lower lobe mass-like opacity shown on PET/CT of August 10, 2025. Asymmetric interstiti al thickening within the right lung. No pneumothorax or pleural effusion is present. Cardiomediastina l silhouette is stable IMPRESSION: 1. Cardiomegaly with pulmonary vascular congestion. 2. Asymmetric right hilar enlargement related to the right lower lobe mass-like opacity on prior PET/ CT. 3. Mild asymmetric interstitial thickening within the right lung. This could represent asymmetric pul monary edema or an infectious process. ACT 112: Negative or not required by law. Electronically signed by: Alberto Marrero M.D. 08/24/2025 8:25 AM
[2025-08-24 08:28] LABS: Thyroid Stimulating Hormone 1.24 uIu/ml (0.300-4.500)
[2025-08-24 08:51] LABS: Chlamydia pneumoniae PCR Not Detected (NotDetected); Coronavirus 229E PCR Not Detected (NotDetected); Coronavirus CoV-2 (COVID19)PCR Not Detected (NotDetected); Coronavirus HKU1 PCR Not Detected (NotDetected); Coronavirus NL63 PCR Not Detected (NotDetected); Coronavirus OC43PCR Not Detected (NotDetected); Human Metapneumovirus PCR Not Detected (NotDetected); Parainfluenza Virus 1 PCR Not Detected (NotDetected); Parainfluenza Virus 2 PCR Not Detected (NotDetected); Parainfluenza Virus 3 PCR Not Detected (NotDetected); Parainfluenza Virus 4 PCR Not Detected (NotDetected); Respiratory Syncytial VirusPCR Not Detected (NotDetected); Rhinovirus/Enterovirus PCR Not Detected (NotDetected)
--- NOTE | 2025-08-24 09:31 | CT Scan Report ---
CT SCAN OF THE BRAIN WITHOUT IV CONTRAST CLINICAL HISTORY: Vomiting. Altered mental status. COMPARISON STUDY: Head CT July 02, 2025. TECHNIQUE: Unenhanced axial CT scan of the brain was performed from the vertex to the skull base. A dose lowering technique was utilized adhering to the principles of ALARA. CT DOSE: 3279.12 mGy.cm FINDINGS: Brain parenchyma: No acute intracranial hemorrhage, midline shift or mass effect is present. Carter-whi te matter differentiation is preserved. There are no extra-axial fluid collections. There are no find ings to suggest acute dural sinus thrombosis or acute territorial infarct. White matter hypodensities are unchanged and favor small vessel disease. 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 A small left parietal infarct is also unchanged. Ventricles, sulci, cisterns: There is no hydrocephalus. The basal cisterns are patent. Calvarium: Unremarkable. Sinuses and mastoids: A mucous retention cyst within the left maxillary sinus is again noted. The mas toid air cells are well pneumatized. Orbits: The bony orbits are grossly intact. IMPRESSION: No acute intracranial findings. No change in appearance of the brain. ACT 112: Negative or not required by law. Electronically signed by: Alberto Marrero M.D. 08/24/2025 9:29 AM
--- NOTE | 2025-08-24 09:40 | CT Scan Report ---
CT OF THE ABDOMEN AND PELVIS WITHOUT CONTRAST CLINICAL HISTORY: Emesis, hypoxia, acute kidney injury. COMPARISON STUDY: CT of the abdomen and pelvis July 02, 2025 and PET/CT August 10, 2025. TECHNIQUE: Axial images of the abdomen and pelvis were obtained without IV contrast. Images were revi ewed in the axial, sagittal, and coronal planes. Automated exposure control was utilized for the kymberly dy. A dose lowering technique was utilized adhering to the principles of ALARA. FINDINGS: Please note that the chest CT will be reported separately. Right lower lobe airspace opacit y and trace bilateral pleural effusions are better depicted on that exam. Moderate bilateral renal co rtical thinning is noted. Symmetric bilateral perinephric stranding is unchanged from prior exams. Th ere are no urinary calculi. There is no hydronephrosis. Evaluation of the remainder of the abdomen an d pelvis is suboptimal on this unenhanced exam. There is suspected mild hepatic steatosis. No biliary or pancreatic ductal dilatation is present. Spleen, adrenal glands and pancreas are unremarkable. Th ere is no evidence for a bowel obstruction. There is a moderate to large amount stool within the left colon and rectum. No lymphadenopathy is present. There are no fluid collections. The appendix is nor mal. No acute fractures within the lumbar spine, pelvis or hips. IMPRESSION: 1. No urinary calculi or hydronephrosis. Moderate bilateral renal cortical thinning. 2. No evidence for a bowel obstruction. Moderate to large amount of stool within the colon and rectum . 3. Right lower lobe airspace opacity suspicious for pneumonia or aspiration pneumonitis better depict ed on the chest CT which will be reported separately. Trace bilateral pleural effusions. ACT 112: Negative or not required by law. Electronically signed by: Alberto Marrero M.D. 08/24/2025 9:39 AM
--- NOTE | 2025-08-24 09:51 | CT Scan Report ---
CT chest diagnostic wo con CLINICAL HISTORY: 79 years-old Male with emesis, hypoxia, soy. Acute hypoxia TECHNIQUE: Multiaxial CT images of the chest were performed without contrast. A dose lowering techni que was utilized adhering to the principles of ALARA. COMPARISON: CT abdomen and pelvis of same day, PET CT 08/10/2025 FINDINGS: Subcentimeter hypodense thyroid nodules are present. There is progression of the previously noted mediastinal lymphadenopathy. There is an index right paratracheal lymph node on image 69 serie s 10 measuring 1.6 x 1.3 cm, previously 1.6 x 1.1 cm. 10 mm subcarinal lymph node, previously 8 mm. H eart is enlarged with moderate coronary artery calcifications. No thoracic aortic aneurysm or pericar dial effusion. There are trace pleural effusions. There is progressive consolidation within the right lung which inv olves the posterior segment right upper lobe and superior segment right lower lobe. Interval developm ent of a few areas of central cavitation within the superior segment right lower lobe. Probable posto bstructive changes result in additional consolidation within the basal segments of the right lower lo be with mucus plugging and groundglass densities. Mild pulmonary emphysema with areas of intralobular septal thickening. Mild subsegmental opacities of the basal left lower lobe. Tracheobronchial secret ions are noted. Probable hepatic steatosis. No acute upper abdominal abnormality. No acute fracture or destructive moustapha ne lesion. IMPRESSION: 1. Progressively worsened consolidation throughout the right lung, now with areas of central cavitati on suggestive of worsening pneumonia. Follow-up is needed. 2. Cardiomegaly with probable mild interstitial pulmonary edema and trace pleural effusions. 3. Mediastinal lymphadenopathy has worsened from the 08/10/2025 PET/CT, likely reactive. ACT 112: Negative or not required by law. Electronically signed by: Audi Griffiths M.D. 08/24/2025 9:49 AM
[2025-08-24] MEDS: ACETAMINOPHEN 1,000 MG/100 ML VIAL IV STA (10:27)
--- NOTE | 2025-08-24 10:43 | History & Physical Report ---
<Statement entered by Maurice Aburto, - 08/24/25 14:38> I have seen and examined the patient and have discussed the case with the advance practice provider. I have reviewed the advanced practitioner's documentation, and I agree with, and take responsibility for that plan of care. Patient seen and evaluated at bedside in the ED. Family present. Patient never fully recovered post bronchoscopy yesterday and started with more significant symptoms overnight. Now extremely weak that needed assistance just walking to the bathroom. Patient does look ill on exam. Reviewed preliminary results from bronchoscopy yesterday, Aspergillus preliminarily growing, suspect fungal pneumonia from chronic immunosuppression from chronic steroids. Agree with plans For antifungal as outlined below Updated family at bedside to the preliminary findings on culture and plans for antifungal treatment. I spent a total of 20 minutes coordinating, documenting, and providing care for this patient excluding time spent by another provider/QHP. Date of Service August 24, 2025 Assessment & Plan (1) Sepsis: (2) Acute hypoxic respiratory failure: (3) Aspergillus pneumonia: Plan: 79 year old male with PMH chronic atrial fibrillation anticoagulated on Coumadin, DM type II, HTN, PMR on chronic prednisone, COPD, and other problems listed below who presents to the ED for evaluation of fever, weakness, and vomiting. Patient recently admitted to [facility] 07/02 through 07/04 for suspected aspiration pneumonia. Patient had CT chest done as an outpatient on 07/17 that showed a right lower lobe mass. Patient followed up with pulmonary on 07/26 and was placed on a 10-day course of cefpodoxime and then had a follow-up PET scan which did not show much improvement. Therefore patient underwent bronchoscopy on 08/23/[address] Ramsey. Patient developed chills and generalized weakness shortly after returning home from procedure. Throughout the night, he developed a fever and had vomiting. In the ED, patient was hypoxic 87%, currently requiring 5 L OxyMask. Labs show WBC 14K, creatinine 1.6, lactate 1.9, procalcitonin 1.8. CXR suggesting right sided pneumonia. Patient was given IVF and IV Zosyn. Patient initially afebrile however developed fever 38.6. Also meets sepsis criteria with leukocytosis, tachycardia, SARWAT, hypoxia. Blood pressure soft - giving IVF. Lactate 1.9, procalcitonin 1.8. CT chest: Progressively worsened consolidation throughout the right lung, now with areas of central cavitation suggestive of worsening pneumonia. Follow-up is needed. Cardiomegaly with probable mild interstitial pulmonary edema and trace pleural effusions. Mediastinal lymphadenopathy has worsened from the 08/10/2025 PET/CT, likely reactive. Ad[facility] with telemetry Discussed case with Dr. Ramsey - preliminary results from bronchoscopy are showing Aspergillus. ID consult IV voriconazole per pulm and ID Continue broad-spectrum antibiotics with IV Zosyn and IV azithromycin Follow blood cultures, fungal blood cultures also ordered Note that patient is immunocompromised with chronic use of prednisone for PMR Speech consult to eval for aspiration Given pulmonary edema noted on CT chest, proBNP was checked and is slightly elevated at 323. Given borderline hypotension and SARWAT, will hold on Lasix for now. Echo 02/2025-EF 65 to 70%, no significant valvular disease (4) Acute kidney injury: Plan: Creatinine 1.6 Likely prerenal in nature due to sepsis Hold enalapril IVF Continue to monitor renal function (5) Elevated troponin: Plan: HS trop 27.9, no reports of chest pain, EKG without acute ST changes Likely due to demand ischemia in the setting of sepsis Continue to trend (6) Permanent atrial fibrillation: Plan: Anticoagulated on Coumadin - given use of antifungals and less corinne of interaction, will transition to Eliquis 2.5 mg BID (reduced dose due to age and current renal function - continue to monitor renal function and if improves, consider increasing dose to 5 mg BID). Prescription sent to patient's pharmacy to check coverage - $0 co-pay for 2.5 mg dosing. Rate controlled on metoprolol, continue (7) Polymyalgia rheumatica: Plan: Continue chronic prednisone (8) Diabetes mellitus, type 2: Plan: Hgb A1c 10.8 04/2025, Update with a.m. labs On Tresiba 28 units daily at home - will reduce to Lantus 10 units daily for now NovoLog per protocol DVT PROPHYLAXIS Starting Eliquis as above Patient seen in collaboration with Dr. Aburto. I spent a total of 90 minutes coordinating, documenting, and providing care for this patient excluding time spent in the performance of separately billed services. This included personally reviewing all current laboratories and imaging studies, medication reconciliation, outpatient chart review, and discussion with specialists. Admission and Anticipated Discharge Date Admission Date: August 24, 2025 History of Present Illness Chief Complaint: Fever, weakness, vomiting Primary Care Provider: Artemio Truong DO 79 year old male with PMH chronic atrial fibrillation anticoagulated on Coumadin, DM type II, HTN, PMR on chronic prednisone, COPD, and other problems listed below who presents to the ED for evaluation of fever, weakness, and vomiting. Patient recently admitted to [facility] 07/02 through 07/04 for suspected aspiration pneumonia. Patient had CT chest done as an outpatient on 07/17 that showed a right lower lobe mass. Patient followed up with pulmonary on 07/26 and was placed on a 10-day course of cefpodoxime and then had a follow-up PET scan which did not show much improvement. Therefore patient underwent bronchoscopy on 08/23/[address] Ramsey. Yesterday evening, patient developed chills and generalized weakness. Throughout the night, he developed a fever and had vomiting. Patient then presented to the ED for further evaluation. He denies cough and sputum production. No chest pain. Denies lightheadedness and dizziness. No abdominal pain. Denies urinary symptoms. In the ED, patient was hypoxic 87%, currently requiring 5 L OxyMask. Labs show WBC 14K, creatinine 1.6, lactate 1.9, procalcitonin 1.8. CXR suggesting right sided pneumonia. Patient was given IVF and IV Zosyn. Allergies Allergy/AdvReac Type Severity Reaction Status Date / Time oxycodone Allergy Intermediate WHEEZING, Verified 08/23/25 06:07 maybe trouble breathing Home Medications Medication Instructions Recorded Confirmed Type alendronate 70 mg tablet (Fosamax) 70 mg PO WK 12/25/21 08/24/25 History atorvastatin 20 mg tablet (Lipitor) 20 mg PO QPM 12/25/21 08/24/25 History duloxetine 20 mg capsule,delayed 20 mg PO QPM 12/25/21 08/24/25 History release prednisone 5 mg tablet 5 mg PO BID 12/25/21 08/24/25 History warfarin 5 mg tablet 2.5 - 5 mg PO DAILY 12/25/21 08/24/25 History enalapril maleate 10 mg tablet 10 mg PO QAM #30 tabs 01/03/23 08/24/25 Rx metoprolol tartrate 50 mg tablet 50 mg PO BID #60 tabs 01/03/23 08/24/25 Rx acetaminophen 500 mg capsule 1,000 mg PO UD PRN Pain 07/26/25 08/24/25 History lancets 33 gauge (OneTouch Delica 07/26/25 07/26/25 History Plus Lancet) tirzepatide 2.5 mg/0.5 mL 2.5 mg subcut WK 07/26/25 08/24/25 History subcutaneous pen injector (Ismael) B12 + Vitamin D 2 dose PO QPM 08/14/25 08/24/25 History insulin degludec 200 unit/mL (3 28 unit subcut QAM 08/14/25 08/24/25 History mL) subcutaneous pen (Tresiba FlexTouch U-200 insulin) apixaban 2.5 mg tablet (Eliquis) 2.5 mg PO BID 30 days #60 tabs 08/24/25 Rx Past Med/Surg History Problem List (Updated 08/24/25 @ 12:27 by Mikel Ramsey MD, [facility]) Pulmonary cavitary lesion Elevated troponin Hypoxia Aspergillus pneumonia Ex-smoker Pulmonary mass Chronic anticoagulation (Acute) Pseudohyponatremia (Acute) On prednisone therapy Syncope Abnormal CT scan, chest Generalized weakness (Acute) COPD with emphysema Pulmonary edema (Acute) Scrotal swelling Tight foreskin HTN, goal below 140/90 Steroid-induced osteoporosis Permanent atrial fibrillation Encounter for pre-operative examination Weakness (Acute) Medical History (Updated 08/24/25 @ 12:27 by Mikel [facility], [facility]) Hx of non-ST elevation myocardial infarction (NSTEMI) 10/2024 [facility] admission: type II NSTEMI vs demand ischemia Bronchiectasis Pulmonary mass COPD (chronic obstructive pulmonary disease) emphysema History of pneumonia pt was tx for PNA based on 07/2025 chest imaging (per pulm, PNA vs mass) History of sepsis (10/2024) hospitalized [facility]. History of recent hospitalization pt has had multiple recent hospitalizations; most recent: [facility] 07/02-07/04/25: pt with vomiting 2/2 starting GLP1 and possible aspiration PNA; required 2L O2 NC for short time but weaned; D/C on Augmentin Osteoporosis Aspiration pneumonitis hx hospitalization [facility] 10/2024. Chronic steroid use for PMR Polymyalgia rheumatica takes prednisone BID to manage. Osteoarthritis Diabetes mellitus, type 2 On anticoagulant therapy coumadin for afib Hyperlipidemia Hypertension Atrial fibrillation Surgical History History of left cataract surgery History of right cataract surgery History of arthroscopy of left shoulder S/P left knee arthroscopy History of colonoscopy H/O eye surgery bilateral tear duct procedures to place a "drain" Family History Other No family history of adverse response to anesthesia Social History Smoking Status: Former smoker Tobacco Type: Cigarettes Age Started Using Tobacco: 12; Age Quit Using Tobacco: 38; packs per day: 2; Second Hand Exposure: No; Do You Dip or Chew Tobacco: No; Hx Alcohol Use: No Hx Substance Use: No Preferred Language: [place] Communication Ability: Effective Test Driller Required: No Beliefs That Will Affect Care: None marital status: Current Living Situation: Spouse Current Living Situation Comment: one story house with one cat Feels Safe at Home: Yes Safety Concerns: Feels Safe At This Time Assistive Devices: Glasses and Hearing Aid - Bilateral Physical Exam Constitutional: + ill appearing; no acute distress Respiratory: normal respiratory effort; no respiratory distress Auscultation: + diminished lung sounds Cardiovascular: Rate/Rhythm: regular rate and + irregularly irregular Vessels: normal peripheral pulses Extremities: no edema Gastrointestinal (Abdomen): Percussion/Palpation: abdomen soft; abdomen nontender Skin: no rashes, warm and dry Neurologic: no focal motor deficits Psychiatric: Orientation: oriented x 3 Sleeping but arouses easily to verbal stimuli Results & Data Results & Data Vital Signs (Past 12 Hours) Vital Signs Temp Pulse Resp BP BP Pulse Ox O2 Del Method 08/24/25 10:34 39.0 C H 103 H 16 116/64 95 Oxymask 08/24/25 10:18 38.6 C H 08/24/25 10:00 102 H 24 106/57 L 96 Oxymask 08/24/25 09:30 92 H 24 98 08/24/25 09:30 131/85 08/24/25 09:00 88 21 93 08/24/25 09:00 120/77 08/24/25 08:30 100/62 08/24/25 08:30 91 H 22 96 Nasal Cannula 08/24/25 08:30 100/62 08/24/25 08:11 96 H 08/24/25 08:06 16 114/88 95 Nasal Cannula 08/24/25 08:02 114/88 08/24/25 08:00 89 27 H 92 Nasal Cannula 08/24/25 07:51 87 L Nasal Cannula 08/24/25 07:36 109 H 25 H 92 Nasal Cannula 08/24/25 07:33 101 H 18 95 Nasal Cannula 08/24/25 07:25 37.1 C 113 H 16 108/63 87 L Room Air O2 Flow Rate 08/24/25 10:34 08/24/25 10:18 08/24/25 10:00 6 08/24/25 09:30 08/24/25 09:30 08/24/25 09:00 08/24/25 09:00 08/24/25 08:30 08/24/25 08:30 5 08/24/25 08:30 08/24/25 08:11 08/24/25 08:06 2 08/24/25 08:02 08/24/25 08:00 2 08/24/25 07:51 2 08/24/25 07:36 2 08/24/25 07:33 2 08/24/25 07:25 Laboratory Results Short CBC 08/24/25 Range/Units 07:31 WBC 14.76 H (4.8-10.8) K/ul Hgb 12.6 L (14.0-18.0) g/dL Hct 38.8 L (42.0-52.0) % Plt Count 196 (130-400) K/uL BMP 08/24/25 07:31 Sodium 138 Potassium 4.0 Chloride 102 Carbon Dioxide 28 BUN 38 H Creatinine 1.66 H Glucose 208 H Calcium 9.2 Liver Function 08/24/25 Range/Units 07:31 Total Bilirubin 0.9 (0.2-1.0) mg/dl AST 13 (13-39) U/L ALT 13 (7-52) U/L Alkaline Phosphatase 40 (34-104) U/L Albumin 3.5 (3.4-5.0) gm/dl Urine 08/24/25 Range/Units 10:02 Urine Color Dark Yellow Urine Appearance Clear (Clear) Urine pH 5.5 (4.5-7.5) Ur Specific [place] 1.022 (1.000-1.030) Urine Protein 2+ H (Negative) Urine Glucose (UA) 2+ H (Negative) Diagnostic Findings Chest X-Ray 08/24/25 07:33 XR chest 1V portable CLINICAL HISTORY: Hypoxia. COMPARISON STUDY: Chest CT February 11, 2025. Chest radiograph August 23, 2025. PET/CT August 10, 2025. FINDINGS: The patient is mildly rotated. Asymmetric right hilar enlargement is noted. This is related to the right lower lobe mass-like opacity shown on PET/CT of August 10, 2025. Asymmetric interstitial thickening within the right lung. No pneumothorax or pleural effusion is present. Cardiomediastinal silhouette is stable IMPRESSION: 1. Cardiomegaly with pulmonary vascular congestion. 2. Asymmetric right hilar enlargement related to the right lower lobe mass-like opacity on prior PET/CT. 3. Mild asymmetric interstitial thickening within the right lung. This could represent asymmetric pulmonary edema or an infectious process. ACT 112: Negative or not required by law. Electronically signed by: Alberto Marrero M.D. 08/24/2025 8:[address] 08/24/25 07:34 CT SCAN OF THE BRAIN WITHOUT IV CONTRAST CLINICAL HISTORY: Vomiting. Altered mental status. COMPARISON STUDY: Head CT July 02, 2025. TECHNIQUE: Unenhanced axial CT scan of the brain was performed from the vertex to the skull base. A dose lowering technique was utilized adhering to the principles of ALARA. CT DOSE: 3279.12 mGy.cm FINDINGS: Brain parenchyma: No acute intracranial hemorrhage, midline shift or mass effect is present. Carter-white matter differentiation is preserved. There are no extra- axial fluid collections. There are no findings to suggest acute dural sinus thrombosis or acute territorial infarct. White matter hypodensities are unchanged and favor small vessel disease. 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 A small left parietal infarct is also unchanged. Ventricles, sulci, cisterns: There is no hydrocephalus. The basal cisterns are patent. Calvarium: Unremarkable. Sinuses and mastoids: A mucous retention cyst within the left maxillary sinus is again noted. The mastoid air cells are well pneumatized. Orbits: The bony orbits are grossly intact. IMPRESSION: No acute intracranial findings. No change in appearance of the brain. ACT 112: Negative or not required by law. Electronically signed by: Alberto Marrero M.D. 08/24/2025 9:29 AM Abdomen/Pelvis CT 08/24/25 08:16 CT OF THE ABDOMEN AND PELVIS WITHOUT CONTRAST CLINICAL HISTORY: Emesis, hypoxia, acute kidney injury. COMPARISON STUDY: CT of the abdomen and pelvis July 02, 2025 and PET/CT August 10, 2025. TECHNIQUE: Axial images of the abdomen and pelvis were obtained without IV contrast. Images were reviewed in the axial, sagittal, and coronal planes. Automated exposure control was utilized for the study. A dose lowering technique was utilized adhering to the principles of ALARA. FINDINGS: Please note that the chest CT will be reported separately. Right lower lobe airspace opacity and trace bilateral pleural effusions are better depicted on that exam. Moderate bilateral renal cortical thinning is noted. Symmetric bilateral perinephric stranding is unchanged from prior exams. There are no urinary calculi. There is no hydronephrosis. Evaluation of the remainder of the abdomen and pelvis is suboptimal on this unenhanced exam. There is suspected mild hepatic steatosis. No biliary or pancreatic ductal dilatation is present. Spleen, adrenal glands and pancreas are unremarkable. There is no evidence for a bowel obstruction. There is a moderate to large amount stool within the left colon and rectum. No lymphadenopathy is present. There are no fluid collections. The appendix is normal. No acute fractures within the lumbar spine, pelvis or hips. IMPRESSION: 1. No urinary calculi or hydronephrosis. Moderate bilateral renal cortical thinning. 2. No evidence for a bowel obstruction. Moderate to large amount of stool within the colon and rectum. 3. Right lower lobe airspace opacity suspicious for pneumonia or aspiration pneumonitis better depicted on the chest CT which will be reported separately. Trace bilateral pleural effusions. ACT 112: Negative or not required by law. Electronically signed by: Alberto Marrero M.D. 08/24/2025 9:[address] 08/24/25 08:16 CT chest diagnostic wo con CLINICAL HISTORY: 79 years-old Male with emesis, hypoxia, sarwat. Acute hypoxia TECHNIQUE: Multiaxial CT images of the chest were performed without contrast. A dose lowering technique was utilized adhering to the principles of ALARA. COMPARISON: CT abdomen and pelvis of same day, PET CT 08/10/2025 FINDINGS: Subcentimeter hypodense thyroid nodules are present. There is progression of the previously noted mediastinal lymphadenopathy. There is an index right paratracheal lymph node on image 69 series 10 measuring 1.6 x 1.3 cm, previously 1.6 x 1.1 cm. 10 mm subcarinal lymph node, previously 8 mm. Heart is enlarged with moderate coronary artery calcifications. No thoracic aortic aneurysm or pericardial effusion. There are trace pleural effusions. There is progressive consolidation within the right lung which involves the posterior segment right upper lobe and superior segment right lower lobe. Interval development of a few areas of central cavitation within the superior segment right lower lobe. Probable postobstructive changes result in additional consolidation within the basal segments of the right lower lobe with mucus plugging and groundglass densities. Mild pulmonary emphysema with areas of intralobular septal thickening. Mild subsegmental opacities of the basal left lower lobe. Tracheobronchial secretions are noted. Probable hepatic steatosis. No acute upper abdominal abnormality. No acute fracture or destructive bone lesion. IMPRESSION: 1. Progressively worsened consolidation throughout the right lung, now with areas of central cavitation suggestive of worsening pneumonia. Follow-up is needed. 2. Cardiomegaly with probable mild interstitial pulmonary edema and trace pleural effusions. 3. Mediastinal lymphadenopathy has worsened from the 08/10/2025 PET/CT, likely reactive. ACT 112: Negative or not required by law. Electronically signed by: Audi Griffiths M.D. 08/24/2025 9:49 AM Code Status & VTE Plan VTE Prophylaxis Plan VTE Prophylaxis will be ordered: Yes
[2025-08-24 10:48] LABS: Immunoglobulin A 441.8 mg/dl (70-400); Immunoglobulin G 1133.1 mg/dl (635-1741); Immunoglobulin M 31.9 mg/dl (45-281)
[2025-08-24] MEDS ORDERED: GLUCOSE 40% GEL 15 GM TUBE PO PRN (10:48)
[2025-08-24] MEDS ORDERED: DEXTROSE 50% 50 ML SYRINGE IV PRN (10:48)
[2025-08-24] MEDS ORDERED: GLUCOSE 10 TAB/TUBE PO PRN (10:48)
[2025-08-24] MEDS ORDERED: GLUCAGON FOR INJ 1 MG VIAL SQ PRN (10:48)
[2025-08-24 10:51] LABS: Appearance Urine Clear (Clear); Bacteria Urine Automated None Seen (None Seen); Glucose Urine UA 2+ (Negative); RBC Urine Automated 0-2 /hpf (0-2); WBC Urine Automated 0-5 /hpf (0-5)
--- NOTE | 2025-08-24 11:03 | Infectious Disease Consult ---
Date of Consultation August 24, 2025 Assessment & Plan (1) Pulmonary cavitary lesion: Plan Problems: #RLL pneumonia #COPD #PMR on chronic pred #T2DM Micro: 08/24 BCx x2: pending 08/24 RVP: neg 08/23 RLL BAL Bacterial cx: pinpoint growth, reincubating. GS neg Fungal cx: pending AFB cx: pending. Smear neg Histo/Blasto PCR: PJP PCR: Aspergillus Ag: Cocci PCR: Legionella PCR: Adenovirus PCR: Flu, RSV PCR: 11/06 Sputum cx: E coli (esquivel-S) Abx: Zosyn 08/24 - present Vanc 08/24 - present Azithro 08/24 - present Voriconazole 08/24 - present 79 yo M with history of chronic afib on Coumadin, DM2, HTN, PMR on chronic prednisone, COPD who presented on 08/24 with fever, weakness, vomiting, admitted with RLL pneumonia. He was recently admitted to [facility] 07/02-07/04 with aspiration pneumonitis vs pneumonia, treated with Unasyn --> Augmentin. 07/02 CXR showed perihilar R midlung airspace opacity concerning for pneumonia, and 07/02 CT AP showed R basilar airspace opacity suspicious for pneumonia. An outpatient CT chest was performed on 07/17 to follow-up his CT from February 2025. This showed: Spiculated mass superior segment RLL where there were small nodules on prior exam and highly suspicious for malignancy and measuring 5.5 x 3.2 cm transversely. He was then seen in pulm clinic on 07/26, where the pt reported being asymptomatic without fevers, chills, chest pain, or cough. He denied significant breathing issues. The mass-like consolidation on CT chest, new from 02/2025, was felt more likely to be infectious given the rapid growth. He was prescribed cefpodoxime 200 mg PO BID x 14 days. He then underwent bronchoscopy on 08/23/25. Pt and family report that he was feeling fine prior to his bronchoscopy, without coughing or shortness of breath. Bronch showed the RLL superior segment was plugged with thick greenish-yellow phlegm cheesy in consistency. Biopsies performed. BAL obtained, with bacterial, fungal, and AFB cultures pending. RLL lung biopsy is negative for malignancy, shows heavily in flamed bronchial alveolar tissue, and GMS stain negative for fungal organisms. RLL BAL and brushing cytology shows fungal organisms consistent with an Aspergillus species. Lymph node biopsy is negative for malignancy and fungal organisms. Around 5am, pt woke up feeling very cold. reports things went downhill, and pt had fevers, dry heaves, could barely walk to the bathroom. In the ED, pt was febrile to 39, HR 113, BP 108/63, RR 16, 87% on room air, placed on 2 L NC, then increased to 6 L oxymask. Labs showed WBC 14.76, Cr 1.66, procal 1.83. UA with 0-5 WBCs. RVP negative, MRSA nares negative. CT chest with progressively worsened consolidation through R lung, now with areas of central cavitation suggestive of worsening pneumonia. CT A/P without findings of infection. Discussed with Dr. Ramsey of pulm. 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 Pt started on Zosyn and voriconazole. Per pulm, fever is most likely a reaction to RLL abscess which was drained through bronchoscopy. Wright that pt likely already had necrosis within the RLL lesion, and the cavity is seen on CT chest now because of the pus removed during bronchoscopy. Recommendations: - Continue Zosyn, azithro for now - Started voriconazole and vanc - Follow-up 08/23 BAL studies and 08/24 blood cultures - Ordered serum Aspergillus Ag and Fungitell Will continue to follow Consultation Information Consultation was provided via telemedicine using two-way real-time interactive telecommunication between the patient and the telemedicine provider. For the duration of the visit, the provider was performing the assessment from a different facility than the patient. This includesuse of bluetooth stethoscope forauscultationperformed by the telepresenter that the telemedicine provider can hear if described in the physical exam. Line Installer Repairer contact information: Please call [facility] [phone]. (Phone Number For Physician Use Only) After establishing a telemedicine visit, patient was: Patient was verified with two unique identifiers, Patient/authorized rep acknowledged consent and understanding and Gave permission to continue telehealth session Time Spent with Patient: Initial => 55 min History of Present Illness Reason for Consultation: Aspergillus Attending Physician: Maurice Aburto DO History of Present Illness 79 yo M with history of chronic afib on Coumadin, DM2, HTN, PMR on chronic prednisone, COPD who presented on 08/24 with fever, weakness, vomiting. He was recently admitted to [facility] 07/02-07/04 with aspiration pneumonitis vs pneumonia, treated with Unasyn --> Augmentin. 07/02 CXR showed perihilar R midlung airspace opacity concerning for pneumonia, and 07/02 CT AP showed R basilar airspace opacity suspicious for pneumonia. An outpatient CT chest was performed on 07/17 to follow-up his CT from February 2025. This showed: Spiculated mass superior segment RLL where there were small nodules on prior exam and highly suspicious for malignancy and measuring 5.5 x 3.2 cm transversely. He was then seen in pulm clinic on 07/26, where the pt reported being asymptomatic without fevers, chills, chest pain, or cough. He denied significant breathing issues. With this [id number] consolidation on CT chest, new from 02/2025, felt more likely to be infectious given the rapid growth. He was prescribed cefpodoxime 200 mg PO BID x 14 days. He then underwent bronchoscopy on 08/23/25. Pt and family report that he was feeling fine prior to his bronchoscopy, without coughing or shortness of breath. Bronch showed the RLL superior segment was plugged with thick greenish-yellow phlegm cheesy in consistency. Biopsies performed. BAL obtained. Around 5am, pt woke up feeling very cold. reports things went downhill, and pt had fevers, dry heaves, could barely walk to the bathroom. In the ED, pt was febrile to 39, HR 113, BP 108/63, RR 16, 87% on room air, placed on 2 L NC, then increased to 6 L oxymask. Labs showed WBC 14.76, Cr 1.66, procal 1.83. UA with 0-5 WBCs. RVP negative, MRSA nares negative. CT chest with progressively worsened consolidation through R lung, now with areas of central cavitation suggestive of worsening pneumonia. CT A/P without findings of infection. Discussed with Dr. Ramsey of pulm. 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 Pt started on Zosyn and voriconazole. Per pulm, fever is most likely a reaction to RLL abscess which was drained through bronchoscopy. Wright that pt likely already had necrosis within the RLL lesion, and the cavity is seen on CT chest now because of the pus removed during bronchoscopy. Allergies Allergy/AdvReac Type Severity Reaction Status Date / Time oxycodone Allergy Intermediate WHEEZING, Verified 08/23/25 06:07 maybe trouble breathing Home Medications Medication Instructions Recorded Confirmed Type alendronate 70 mg tablet (Fosamax) 70 mg PO WK 12/25/21 08/24/25 History atorvastatin 20 mg tablet (Lipitor) 20 mg PO QPM 12/25/21 08/24/25 History duloxetine 20 mg capsule,delayed 20 mg PO QPM 12/25/21 08/24/25 History release prednisone 5 mg tablet 5 mg PO BID 12/25/21 08/24/25 History warfarin 5 mg tablet 2.5 - 5 mg PO DAILY 12/25/21 08/24/25 History enalapril maleate 10 mg tablet 10 mg PO QAM #30 tabs 01/03/23 08/24/25 Rx metoprolol tartrate 50 mg tablet 50 mg PO BID #60 tabs 01/03/23 08/24/25 Rx acetaminophen 500 mg capsule 1,000 mg PO UD PRN Pain 07/26/25 08/24/25 History lancets 33 gauge (OneTouch Delica 07/26/25 07/26/25 History Plus Lancet) tirzepatide 2.5 mg/0.5 mL 2.5 mg subcut WK 07/26/25 08/24/25 History subcutaneous pen injector (Mounjaro) B12 + Vitamin D 2 dose PO QPM 08/14/25 08/24/25 History insulin degludec 200 unit/mL (3 28 unit subcut QAM 08/14/25 08/24/25 History mL) subcutaneous pen (Tresiba FlexTouch U-200 insulin) apixaban 2.5 mg tablet (Eliquis) 2.5 mg PO BID 30 days #60 tabs 08/24/25 Rx Patient History Medical History (Updated 08/24/25 @ 15:38 by Himanshu Nix PA-C) Hx of non-ST elevation myocardial infarction (NSTEMI) 10/2024 [facility] admission: type II NSTEMI vs demand ischemia Bronchiectasis Pulmonary mass COPD (chronic obstructive pulmonary disease) emphysema History of pneumonia pt was tx for PNA based on 07/2025 chest imaging (per pulm, PNA vs mass) History of sepsis (10/2024) hospitalized [facility]. History of recent hospitalization pt has had multiple recent hospitalizations; most recent: [facility] 07/02-07/04/25: pt with vomiting 2/2 starting GLP1 and possible aspiration PNA; required 2L O2 NC for short time but weaned; D/C on Augmentin Osteoporosis Aspiration pneumonitis hx hospitalization [facility] 10/2024. Chronic steroid use for PMR Polymyalgia rheumatica takes prednisone BID to manage. Osteoarthritis Diabetes mellitus, type 2 On anticoagulant therapy coumadin for afib Hyperlipidemia Hypertension Atrial fibrillation Surgical History History of left cataract surgery History of right cataract surgery History of arthroscopy of left shoulder S/P left knee arthroscopy History of colonoscopy H/O eye surgery bilateral tear duct procedures to place a "drain" Family History Other No family history of adverse response to anesthesia Social History Smoking Status: Former smoker Tobacco Type: Cigarettes Age Started Using Tobacco: 12; Age Quit Using Tobacco: 38; packs per day: 2; Second Hand Exposure: No; Do You Dip or Chew Tobacco: No; Hx Alcohol Use: No Hx Substance Use: No Preferred Language: Croatian Communication Ability: Effective Manager Printing Required: No Beliefs That Will Affect Care: None marital status: Current Living Situation: Spouse Current Living Situation Comment: one story house with one cat Feels Safe at Home: Yes Safety Concerns: Feels Safe At This Time Assistive Devices: Glasses and Hearing Aid - Bilateral Review of System A complete ROS was performed and is negative except as mentioned in the HPI. Physical Exam Physical Exam: GEN: elderly man sitting in chair in NAD. HEENT: oxymask in place RESP: No increased work of breathing EXT: No LE edema. SKIN: No lesions or rashes Results & Data Vital Signs (Past 12 Hours) Vital Signs Temp Pulse Resp BP BP Pulse Ox O2 Del Method 08/24/25 10:34 39.0 C H 103 H 16 116/64 95 Oxymask 08/24/25 10:18 38.6 C H 08/24/25 10:00 102 H 24 106/57 L 96 Oxymask 08/24/25 09:30 92 H 24 98 08/24/25 09:30 131/85 08/24/25 09:00 88 21 93 08/24/25 09:00 120/77 08/24/25 08:30 100/62 08/24/25 08:30 91 H 22 96 Nasal Cannula 08/24/25 08:30 100/62 08/24/25 08:11 96 H 08/24/25 08:06 16 114/88 95 Nasal Cannula 08/24/25 08:02 114/88 08/24/25 08:00 89 27 H 92 Nasal Cannula 08/24/25 07:51 87 L Nasal Cannula 08/24/25 07:36 109 H 25 H 92 Nasal Cannula 08/24/25 07:33 101 H 18 95 Nasal Cannula 08/24/25 07:25 37.1 C 113 H 16 108/63 87 L Room Air O2 Flow Rate 08/24/25 10:34 08/24/25 10:18 08/24/25 10:00 6 08/24/25 09:30 08/24/25 09:30 08/24/25 09:00 08/24/25 09:00 08/24/25 08:30 08/24/25 08:30 5 08/24/25 08:30 08/24/25 08:11 08/24/25 08:06 2 08/24/25 08:02 08/24/25 08:00 2 08/24/25 07:51 2 08/24/25 07:36 2 08/24/25 07:33 2 08/24/25 07:25 Diagnostic Findings Chest X-Ray 08/24/25 07:33 XR chest 1V portable CLINICAL HISTORY: Hypoxia. COMPARISON STUDY: Chest CT February 11, 2025. Chest radiograph August 23, 2025. PET/CT August 10, 2025. FINDINGS: The patient is mildly rotated. Asymmetric right hilar enlargement is noted. This is related to the right lower lobe mass-like opacity shown on PET/CT of August 10, 2025. Asymmetric interstitial thickening within the right lung. No pneumothorax or pleural effusion is present. Cardiomediastinal silhouette is stable IMPRESSION: 1. Cardiomegaly with pulmonary vascular congestion. 2. Asymmetric right hilar enlargement related to the right lower lobe mass-like opacity on prior PET/CT. 3. Mild asymmetric interstitial thickening within the right lung. This could represent asymmetric pulmonary edema or an infectious process. ACT 112: Negative or not required by law. Electronically signed by: Alberto Marrero M.D. 08/24/2025 8:25 AM Abdomen/Pelvis CT 08/24/25 08:16 CT OF THE ABDOMEN AND PELVIS WITHOUT CONTRAST CLINICAL HISTORY: Emesis, hypoxia, acute kidney injury. COMPARISON STUDY: CT of the abdomen and pelvis July 02, 2025 and PET/CT August 10, 2025. TECHNIQUE: Axial images of the abdomen and pelvis were obtained without IV contrast. Images were reviewed in the axial, sagittal, and coronal planes. Automated exposure control was utilized for the study. A dose lowering wilner hnique was utilized adhering to the principles of ALARA. FINDINGS: Please note that the chest CT will be reported separately. Right lower lobe airspace opacity and trace bilateral pleural effusions are better depicted on that exam. Moderate bilateral renal cortical thinning is noted. Symmetric bilateral perinephric stranding is unchanged from prior exams. There are no urinary calculi. There is no hydronephrosis. Evaluation of the remainder of the abdomen and pelvis is suboptimal on this unenhanced exam. There is suspected mild hepatic steatosis. No biliary or pancreatic ductal dilatation is present. Spleen, adrenal glands and pancreas are unremarkable. There is no evidence for a bowel obstruction. There is a moderate to large amount stool within the left colon and rectum. No lymphadenopathy is present. There are no fluid collections. The appendix is normal. No acute fractures within the lumbar spine, pelvis or hips. IMPRESSION: 1. No urinary calculi or hydronephrosis. Moderate bilateral renal cortical thinning. 2. No evidence for a bowel obstruction. Moderate to large amount of stool within the colon and rectum. 3. Right lower lobe airspace opacity suspicious for pneumonia or aspiration pneumonitis better depicted on the chest CT which will be reported separately. Trace bilateral pleural effusions. ACT 112: Negative or not required by law. Electronically signed by: Alberto Marrero M.D. 08/24/2025 9:[address] 08/24/25 08:16 CT chest diagnostic wo con CLINICAL HISTORY: 79 years-old Male with emesis, hypoxia, soy. Acute hypoxia TECHNIQUE: Multiaxial CT images of the chest were performed without contrast. A dose lowering technique was utilized adhering to the principles of ALARA. COMPARISON: CT abdomen and pelvis of same day, PET CT 08/10/2025 FINDINGS: Subcentimeter hypodense thyroid nodules are present. There is progression of the previously noted mediastinal lymphadenopathy. There is an index right paratracheal lymph node on image 69 series 10 measuring 1.6 x 1.3 cm, previously 1.6 x 1.1 cm. 10 mm subcarinal lymph node, previously 8 mm. Heart is enlarged with moderate coronary artery calcifications. No thoracic aortic aneurysm or pericardial effusion. There are trace pleural effusions. There is progressive consolidation within the right lung which involves the posterior segment right upper lobe and superior segment right lower lobe. Interval development of a few areas of central cavitation within the superior segment right lower lobe. Probable postobstructive changes result in additional consolidation within the basal segments of the right lower lobe with mucus plugging and groundglass densities. Mild pulmonary emphysema with areas of intralobular septal thickening. Mild subsegmental opacities of the basal left lower lobe. Tracheobronchial secretions are noted. Probable hepatic steatosis. No acute upper abdominal abnormality. No acute fracture or destructive bone lesion. IMPRESSION: 1. Progressively worsened consolidation throughout the right lung, now with areas of central cavitation suggestive of worsening pneumonia. Follow-up is needed. 2. Cardiomegaly with probable mild interstitial pulmonary edema and trace pleural effusions. 3. Mediastinal lymphadenopathy has worsened from the 08/10/2025 PET/CT, likely reactive. ACT 112: Negative or not required by law. Electronically signed by: Audi Griffiths M.D. 08/24/2025 9:49 AM 07/17 CT chest Spiculated mass superior segment RLL where there were small nodules on prior exam and highly suspicious for malignancy and measuring 5.5 x 3.2 cm transversely. 04/19/25 CT chest 1. Redemonstration of bronchiectatic changes in lower lobes, R>L. A few new nodules in RLL, likely inflammatory in nature
[2025-08-24 11:28] LABS: iSTAT Art Bld Gas Base Excess 0.0 mmol/L (-9-1.8); iSTAT Art Bld Gas pCO2 Correct 38 mmHg (35-46); iSTAT Art Bld Gas pH Corrected 7.417 (7.35-7.45); iSTAT Arterial Blood Gas pO2 C 90
[2025-08-24] MEDS: SODIUM CHLORIDE 0.9% 1,000 ML IV SCH (11:51)
--- NOTE | 2025-08-24 12:06 | Pulmonary Consultation ---
Date of Consultation August 24, 2025 Assessment & Plan (1) Aspergillus pneumonia: (2) COPD with emphysema: (3) Abnormal CT scan, chest: (4) Acute hypoxic respiratory failure: (5) Pulmonary cavitary lesion: (6) Hypoxia: (7) Ex-smoker: (8) On prednisone therapy: Plan CT chest 08/24/2025 personally reviewed: Centrilobular and paraseptal emphysema appreciated bilaterally Interlobular thickening appreciated Cavitary lesion in the right lower lobe where the pulmonary mass was Minimal bilateral pleural effusion Mild right hilar and subcarinal lymphadenopathy 2D echo 02/13/2025: EF 65-70%, moderate concentric LVH, RV hyperdynamic, no pulmonary hypertension --Acute hypoxic respiratory failure secondary to Aspergillus pneumonia right lower lobe opacity now with cavitary lesion 3.2 cm x 5.5 cm [id number] smoking history In a patient who is on chronic 5 mg prednisone BNP 323 s/p robotic bronchoscopy 08/23/2025: Showed mucous plugging with pus drainage. BAL showing Aspergillus Absolute eosinophil count 180 on 07/02/2025 CT chest 02/11/2025 personally reviewed: Centrilobular and paraseptal emphysema appreciated bilaterally Right lower lobe 3.2 cm x 5.5 cm dense opacity No significant mediastinal lymphadenopathy --COPD with emphysema Gold A [id number] smoking history, quit in his 40s Good functional status Okay to monitor the patient off maintenance inhalers right now NIOX 07/26/2025: 36, intermediate Spirometry 07/26/2025 personally reviewed: No obstructive lung dysfunction FVC 3.19 L 80%, FEV1 2.49 L 88%, FEV1/FVC 78% --Ex-smoker [id number] smoking history Quit in his early 40s Encouraged to continue abstinence from smoking --History of A-fib On warfarin and beta-sara at home -- Polymyalgia rheumatica with chronic steroid use On 5 mg twice daily of prednisone on a daily basis Plan: Patient most likely had abscess in the right lower lobe which I drained through bronchoscopy on 08/23/2025 The fever is most likely a reaction to that When it comes to the CT of the chest showing cavitary lesion, I think the patient already had necrosis significant within that area and cavity was already forming it is just that because I removed the pus from the cavity it is showing up on the latest CAT scan of the chest Given the Aspergillus growing on the BAL I would recommend the patient to be treated with voriconazole I personally spoke with infectious disease Dr. Knight I have ordered RAST panel, IgE as well as Aspergillus antibody titers Would recommend to cover for bacterial antibiotics as well for at least 48 hours till we have negative blood cultures Okay to give heparin while in the hospital as patient is not complaining of hemoptysis Would recommend to consider changing warfarin to DOACs as warfarin will interact with voriconazole Given the elevated BNP would recommend some gentle diuresis as well Dr Abrams was also updated, who will be taking care of the patient while patient is hospitalized through the weekend Case was discussed with primary team and RN at bedside All questions inquiries of the patient as well as patient's son and were answered in depth I spent more than 75 minutes looking in the chart, images, discussing the plan of care with the patient, RN as well as primary team Please note the above document was generated using voice recognition software. It may contain grammatical, syntax or spelling errors.Any formal questions or concerns about the content, text or information contained within the body of this dictation should be directly addressed to the provider for clarification. History of Present Illness Attending Physician: Maurice Aburto DO History of Present Illness 79-year-old male comes to the hospital because of fever, generalized malaise and hypoxia Past medical history: HFpEF, A-fib on warfarin, diabetes type 2, PMR on chronic prednisone Patient was just seen by me yesterday when I did navigational robotic bronchoscopy on him which showed aspergillus on the BAL Patient's and son were in the room at the time of examination As per the patient complained of fever and generalized lethargy overnight with generalized weakness He spiked a fever of 101 When he came to the hospital his saturation was in the mid 80s. He was started on oxygen and had a CT chest done today. Denies any hemoptysis No chest pain No abdominal pain No nausea or vomiting No unusual headache or blurry vision No dysuria, no diarrhea No hematuria, no hematochezia, no epistaxis Social history: Approximately [id number]-[id number] smoking history, quit in his early 80s, used to work in construction. No history of lung cancer in the family Allergies Allergy/AdvReac Type Severity Reaction Status Date / Time oxycodone Allergy Intermediate WHEEZING, Verified 08/23/25 06:07 maybe trouble breathing Home Medications Medication Instructions Recorded Confirmed Type alendronate 70 mg tablet (Fosamax) 70 mg PO WK 12/25/21 08/24/25 History atorvastatin 20 mg tablet (Lipitor) 20 mg PO QPM 12/25/21 08/24/25 History duloxetine 20 mg capsule,delayed 20 mg PO QPM 12/25/21 08/24/25 History release prednisone 5 mg tablet 5 mg PO BID 12/25/21 08/24/25 History warfarin 5 mg tablet 2.5 - 5 mg PO DAILY 12/25/21 08/24/25 History enalapril maleate 10 mg tablet 10 mg PO QAM #30 tabs 01/03/23 08/24/25 Rx metoprolol tartrate 50 mg tablet 50 mg PO BID #60 tabs 01/03/23 08/24/25 Rx acetaminophen 500 mg capsule 1,000 mg PO UD PRN Pain 07/26/25 08/24/25 History lancets 33 gauge (OneTouch Delica 07/26/25 07/26/25 History Plus Lancet) tirzepatide 2.5 mg/0.5 mL 2.5 mg subcut WK 07/26/25 08/24/25 History subcutaneous pen injector (Mounjaro) B12 + Vitamin D 2 dose PO QPM 08/14/25 08/24/25 History insulin degludec 200 unit/mL (3 28 unit subcut QAM 08/14/25 08/24/25 History mL) subcutaneous pen (Tresiba FlexTouch U-200 insulin) apixaban 2.5 mg tablet (Eliquis) 2.5 mg PO BID 30 days #60 tabs 08/24/25 Rx Patient History Medical History (Updated 08/24/25 @ 12:27 by Mikel Ramsey MD, [facility]) Hx of non-ST elevation myocardial infarction (NSTEMI) 10/2024 [facility] admission: type II NSTEMI vs demand ischemia Bronchiectasis Pulmonary mass COPD (chronic obstructive pulmonary disease) emphysema History of pneumonia pt was tx for PNA based on 07/2025 chest imaging (per pulm, PNA vs mass) History of sepsis (10/2024) hospitalized [facility]. History of recent hospitalization pt has had multiple recent hospitalizations; most recent: [facility] 07/02-07/04/25: pt with vomiting 2/2 starting GLP1 and possible aspiration PNA; required 2L O2 NC for short time but weaned; D/C on Augmentin Osteoporosis Aspiration pneumonitis hx hospitalization [facility] 10/2024. Chronic steroid use for PMR Polymyalgia rheumatica takes prednisone BID to manage. Osteoarthritis Diabetes mellitus, type 2 On anticoagulant therapy coumadin for afib Hyperlipidemia Hypertension Atrial fibrillation Surgical History History of left cataract surgery History of right cataract surgery History of arthroscopy of left shoulder S/P left knee arthroscopy History of colonoscopy H/O eye surgery bilateral tear duct procedures to place a "drain" Family History Other No family history of adverse response to anesthesia Social History Smoking Status: Former smoker Tobacco Type: Cigarettes Age Started Using Tobacco: 12; Age Quit Using Tobacco: 38; packs per day: 2; Second Hand Exposure: No; Do You Dip or Chew Tobacco: No; Hx Alcohol Use: No Hx Substance Use: No Preferred Language: Yoruba Communication Ability: Effective Finger Waver Required: No Beliefs That Will Affect Care: None marital status: Current Living Situation: Spouse Current Living Situation Comment: one story house with one cat Feels Safe at Home: Yes Safety Concerns: Feels Safe At This Time Assistive Devices: Glasses and Hearing Aid - Bilateral Review of Systems 2 Review of Systems: All systems reviewed & are unremarkable except as noted in HPI & below Physical Exam 2 Physical Exam: Constitutional: No acute distress HEENT: EOMI, PERRLA Respiratory system: Decreased air entry bilaterally, no wheeze, rhonchi, positive crackles bilaterally lower lobes CVS: S1-S2 positive, no murmurs or gallops Abdomen: Soft, nontender, nondistended, positive bowel sounds x4, obese Extremities: +2 pulses bilaterally radialis/ dorsalis pedis, no cyanosis, no edema Neuro: Awake alert oriented x3 Psych: Normal mood and affect G/U: No [place] Skin: no rashes, warm and dry Lymphatic: no cervical or axillary lymphadenopathy Results & Data Results & Data Vital Signs (Past 12 Hours) Vital Signs Temp Pulse Pulse Resp BP BP Pulse Ox 08/24/25 10:58 36.5 C 98 H 16 97/59 L 96 08/24/25 10:34 39.0 C H 103 H 16 116/64 95 08/24/25 10:18 38.6 C H 08/24/25 10:00 102 H 24 106/57 L 96 08/24/25 09:30 92 H 24 98 08/24/25 09:30 131/85 08/24/25 09:00 88 21 93 08/24/25 09:00 120/77 08/24/25 08:30 100/62 08/24/25 08:30 91 H 22 96 08/24/25 08:30 100/62 08/24/25 08:11 96 H 08/24/25 08:06 16 114/88 95 08/24/25 08:02 114/88 08/24/25 08:00 89 27 H 92 08/24/25 07:51 87 L 08/24/25 07:36 109 H 25 H 92 08/24/25 07:33 101 H 18 95 08/24/25 07:25 37.1 C 113 H 16 108/63 87 L O2 Del Method O2 Flow Rate 08/24/25 10:58 Oxymask 6 08/24/25 10:34 Oxymask 08/24/25 10:18 08/24/25 10:00 Oxymask 6 08/24/25 09:30 08/24/25 09:30 08/24/25 09:00 08/24/25 09:00 08/24/25 08:30 08/24/25 08:30 Nasal Cannula 5 08/24/25 08:30 08/24/25 08:11 08/24/25 08:06 Nasal Cannula 2 08/24/25 08:02 08/24/25 08:00 Nasal Cannula 2 08/24/25 07:51 Nasal Cannula 2 08/24/25 07:36 Nasal Cannula 2 08/24/25 07:33 Nasal Cannula 2 08/24/25 07:25 Room Air Laboratory Results 08/24/25 07:31 08/24/25 07:31 PG Care Time/CCT Total # of Minutes Spent Total Time Spent with Patient: Total time spent is greater than 50% in coordination of care (as documented) at patient's floor/unit and/or counseling patient: Coding [place] [address] INT INP/OBS CARE MIN Patient Type Established Diagnoses Aspergillus pneumonia B44.9 COPD with emphysema J43.[address] scan, chest R93.89 Acute hypoxic respiratory failure J96.01 Pulmonary cavitary lesion J98.4 Hypoxia R09.02 Ex-smoker Z87.891 On prednisone therapy Z79.52
[2025-08-24] MEDS: APIXABAN 2.5 MG TAB PO SCH (12:39)
[2025-08-24] MEDS: AZITHROMYCIN 500 MG/255 ML BAG IV SCH (12:39)
[2025-08-24] MEDS: INSULIN ASPART PER UNIT CHARGE SC SCH (12:58)
[2025-08-24] MEDS: LANTUS PER UNIT CHARGE SQ SCH (12:59)
[2025-08-24] MEDS ORDERED: VANCOMYCIN CONSULT ACTIVE PRN (15:11)
[2025-08-24] MEDS: SODIUM CHLORIDE 0.9% 1,000 ML IV ONE (15:36)
[2025-08-24] MEDS: VANCOMYCIN HCL 1,750 MG in SODIUM CHLORIDE 0.9% 500 ML IV ONE (16:11)
[2025-08-24] MEDS: PIPERACILLIN/TAZOBACTAM 4.5 GM/100 ML BAG IV SCH (16:34)
--- NOTE | 2025-08-24 17:06 | Pharmacy Report ---
Pharmacy Vanc AUC Short Note - Date of Service August 24, 2025 - Assessment & Plan Assessment 79 year old M receiving VORICONAZOLE, PIP/TAZO, VANC for treatment of pulmonary infection. Pertinent microbiologic data is pending. * Day # 1 of antimicrobial therapy. Plan Vancomycin * AUC/LUZ MARINA is the preferred PK/PD target for vancomycin. Goal AUC 400-600. * AUC guided dosing is effective and associated with decreased risk of nephrotoxicity compared to traditional trough targets. * Loading dose: Vanc 1750mg (22mg/kg) IV x 1. * Maintenance dose: 1000mg IV q24h * Reassess need for vanc random/trough 08/25/25. Pharmacy will continue to follow and will adjust dose/frequency as necessary. Thank you.
[2025-08-24] MEDS: ACETAMINOPHEN 325 MG TAB PO PRN (18:37)
[2025-08-24] MEDS: MAGNESIUM SULFATE / D5W 1 GM/100 ML BAG IV SCH (20:11)
[2025-08-24] MEDS: ATORVASTATIN 20 MG TAB PO SCH (20:12)
[2025-08-24] MEDS: METOPROLOL TARTRATE 50 MG TAB PO SCH (20:13)
--- NOTE | 2025-08-24 20:56 | Communication Note ---
Date of Service: August 24, 2025 Made aware by RN of SBP 80s despite ongoing IVF Patient comfortable. AP Hypotension Possible adrenal insufficiency given chronic prednisone Rx Decadron 1 dose now Hold metoprolol until BP stable
[2025-08-24] MEDS: ALBUMIN 25% 25 GM/100 ML VIAL IV ONE (20:57)
[2025-08-24] MEDS: dexAMETHasone 4 MG in SYRINGE 0 ML IV ONE (22:11)
[2025-08-25] MEDS: VANCOMYCIN HCL / NSS 1,000 MG/270 ML BAG IV SCH (05:49)
[2025-08-25 07:22] LABS: Hematocrit (blood only) 32.0 % (42.0-52.0); Hemoglobin 10.5 g/dL (14.0-18.0); Mean Corpuscular Hemoglobin 30.0 pg (25.0-34.0); Mean Corpuscular Volume 91.4 fL (80.0-100.0); Platelet Count 157 K/uL (130-400); RDW Standard Deviation 49.6 fL (36.4-46.3); Red Blood Count 3.50 M/uL (4.70-6.10); White Blood Count 8.72 K/ul (4.8-10.8)
[2025-08-25 07:46] LABS: Anion Gap 9.0 (3-11); Blood Urea Nitrogen 30.0 mg/dl (6-23); Calcium 8.0 mg/dl (8.6-10.3); Carbon Dioxide 20.0 mmol/L (21-32); Chloride 109.0 mmol/L (98-107); Creatinine Clr Calc Pharmacy 39.4 ml/min; Glucose 240.0 mg/dl (70-99(Fasting)); Magnesium 2.2 mg/dl (1.7-2.4); Potassium 4.4 mmol/L (3.5-5.1); Sodium 138.0 mmol/L (136-145)
[2025-08-25 08:17] LABS: Hemoglobin A1C 11.5 % (4.5-5.6)
--- NOTE | 2025-08-25 09:44 | Electrocardiogram Report ---
Test Reason : Blood Pressure : */* mmHG Vent. Rate : 105 BPM Atrial Rate : * BPM P-R Int : * ms QRS Dur : 94 ms QT Int : 304 ms P-R-T Axes : * 0 18 degrees QTcB Int : 401 ms Atrial fibrillation with rapid ventricular response Moderate voltage criteria for LVH, may be normal variant ( R in aVL , [place] product ) Abnormal ECG When compared with ECG of 02-Jul-2025 09:55, No significant change was found Confirmed by Luis Davis ([id number]) on 08/25/2025 9:44:17 AM Referred By: REFERRED SELF Confirmed By: Luis Davis
[2025-08-25] MEDS: METOPROLOL TARTRATE 50 MG TAB PO SCH (10:25)
--- NOTE | 2025-08-25 10:53 | Hospitalist Progress Note ---
Date of Service August 25, 2025 Assessment & Plan (1) Severe sepsis with acute organ dysfunction: (2) Aspergillus pneumonia: (3) Acute hypoxic respiratory failure: (4) Acute metabolic encephalopathy: Plan: Resolved (5) Demand ischemia: (6) On prednisone therapy: (7) COPD with emphysema: (8) Permanent atrial fibrillation: (9) Diabetes mellitus type 2, insulin dependent: (10) Acute kidney injury: (11) Polymyalgia rheumatica: Plan Patient 79-year-old gentleman presented to the emergency room with signs of severe sepsis and organ dysfunction and early shock that responded to fluid resuscitation due to Aspergillus pulmonary infection. Patient had bronchoscopy the day prior where Aspergillus abscess was disturbed and biopsied. Patient significantly improved today, sitting up in chair, blood pressure stabilized with fluid resuscitation Restart metoprolol for rate control of his permanent atrial fibrillation Continue anticoagulation Continue antifungals as directed by infectious disease Continue antibiotics as directed by infectious disease, anticipate may be able to narrow antibiotics once blood cultures fully resulted Increase basal insulin for better glucose control Saline lock IV fluids Titrate oxygen as able Monitor renal function and electrolytes Start therapies Updated patient's son via phone Admission and Anticipated Discharge Date Admission Date: August 24, 2025 Subjective Patient feeling significantly improved this morning. Denies shortness of breath. No chest pain. Sitting up in chair for breakfast. Physical Exam Physical Exam: Constitutional: Alert, sitting in chair, less toxic in appearance, no respiratory distress HEENT: Mucous membranes moist. Lungs: Decreased breath sounds, rhonchi throughout CV: S1-S2, irregular, tachycardic Abdomen: Soft, nontender, nondistended Extremities: Trace pretibial edema Neuro: No focal deficits, generally weak Psych: Cooperative, normal mood Results & Data Results & Data Vital Signs (Past 12 Hours) Vital Signs Temp Pulse Pulse Resp BP Pulse Ox O2 Del Method 08/25/25 07:44 Nasal Cannula 08/25/25 07:43 36.4 C L 108 H 20 119/74 95 Nasal Cannula 08/25/25 07:04 93 H 08/25/25 02:42 36.4 C L 103 H 18 119/72 94 Nasal Cannula O2 Flow Rate 08/25/25 07:44 2 08/25/25 07:43 3 08/25/25 07:04 08/25/25 02:42 2 Diagnostic Findings Reviewed imaging, laboratory and diagnostic studies. Pertinent findings as below. WBCs 8.7 Hemoglobin 10.5 Electrolytes stable Creatinine 1.52 Hemoglobin A1c 11.5% Blood cultures no growth to date Fungal blood culture pending, no yeast or hyphae seen on direct visualization Reviewed bronchoscopy microbiology, lavage growing Aspergillus
--- NOTE | 2025-08-25 13:07 | Infectious Disease Progress Nt ---
Date of Service August 25, 2025 Assessment & Plan (1) Pulmonary cavitary lesion: Plan Problems: #RLL pneumonia with concern for invasive pulmonary Aspergillosis #COPD #PMR on chronic pred #T2DM Micro: 08/25 Aspergillus Ag: pending 08/25 BDG: pending 08/24 BCx x2: NGTD 08/24 RVP: neg 08/23 RLL BAL BAL cx (before washing): Fungus, identification to follow. GS neg Fungal cx (before washing): pending AFB cx (before washing): pending. Smear neg BAL cx (after washing): Aspergillus species. GS neg Fungal cx (after washing): pending AFB cx (after washing): pending. Smear neg Histo/Blasto PCR: PJP PCR: Aspergillus Ag: Cocci PCR: Legionella PCR: Adenovirus PCR: Flu, RSV PCR: 11/06 Sputum cx: E coli (esquivel-S) Abx: Zosyn 08/24 - present Vanc 08/24 - present Azithro 08/24 - present Voriconazole 08/24 - present 79 yo M with history of chronic afib on Coumadin, DM2, HTN, PMR on chronic prednisone, COPD who presented on 08/24 with fever, weakness, vomiting, admitted with RLL pneumonia and concern for invasive pulmonary Aspergillosis. He was recently admitted to [facility] 07/02-07/04 with aspiration pneumonitis vs pneumonia, treated with Unasyn --> Augmentin. 07/02 CXR showed perihilar R midlu ng airspace opacity concerning for pneumonia, and 07/02 CT AP showed R basilar airspace opacity suspicious for pneumonia. An outpatient CT chest was performed on 07/17 to follow-up his CT from February 2025. This showed: Spiculated mass superior segment RLL where there were small nodules on prior exam and highly suspicious for malignancy and measuring 5.5 x 3.2 cm transversely. He was then seen in pulm clinic on 07/26, where the pt reported being asymptomatic without fevers, chills, chest pain, or cough. He denied significant breathing issues. The mass-like consolidation on CT chest, new from 02/2025, was felt more likely to be infectious given the rapid growth. He was prescribed cefpodoxime 200 mg PO BID x 14 days. He then underwent bronchoscopy on 08/23/25. Pt and family report that he was feeling fine prior to his bronchoscopy, without coughing or shortness of breath. Bronch showed the RLL superior segment was plugged with thick greenish-yellow phlegm cheesy in consistency. Biopsies performed. BAL obtained, with bacterial, fungal, and AFB cultures pending. RLL lung biopsy is negative for malignancy, shows heavily inflamed bronchial alveolar tissue, and GMS stain negative for fungal organisms. RLL BAL and brushing cytology shows fungal organisms consistent with an Aspergillus species. Lymph node biopsy is negative for malignancy and fungal organisms. Around 5am, pt woke up feeling very cold. reports things went downhill, and pt had fevers, dry heaves, could barely walk to the bathroom. In the ED, pt was febrile to 39, HR 113, BP 108/63, RR 16, 87% on room air, placed on 2 L NC, then increased to 6 L oxymask. Labs showed WBC 14.76, Cr 1.66, procal 1.83. UA with 0-5 WBCs. RVP negative, MRSA nares negative. CT chest with progressively worsened consolidation through R lung, now with areas of central cavitation suggestive of worsening pneumonia. CT A/P without findings of infection. Discussed with Dr. Ramsey of pulm. 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 Pt started on Zosyn, azithro, vanc, and voriconazole. Per pulm, fever is most likely a reaction to RLL abscess which was drained through bronchoscopy. [place] that pt likely already had necrosis within the RLL lesion, and the cavity is seen on CT chest now because of the pus removed during bronchoscopy. Pt improved 08/25--afebrile, leukocytosis downtrended, now on 2 L NC. Recommendations: - Continue voriconazole for Aspergillus. Switched from IV to 200 mg PO BID. - Ordered voriconazole trough for 08/28, to be drawn prior to AM dose of voriconazole. This is a send out test, may take 3-7 days to return - Called micro lab to request sensitivities on the Aspergillus--will likely take several weeks to return - Continue vanc, Zosyn, azithro for possible bacterial pneumonia, pending BAL cultures--if no bacterial growth and BCx NGTD, can discontinue antibiotics - Follow-up 08/23 BAL studies, 08/24 blood cultures, and 08/25 Aspergillus Ag and Fungitell Please note that ID does not round or write notes over the weekend. If questions or concerns arise, please contact the Infectious Disease Call Center and ask to speak with the covering ID physician. [] will take over on Thursday. Admission and Anticipated Discharge Date Admission Date: August 24, 2025 Subjective This patient recommendation is based on a telemedicine consult request which was completed asynchronously through chart review and information provided by the primary physician. The patient was not seen or examined today. The evaluation is consultative in nature and all patient care and treatment decisions can either be accepted or rejected by the patient's primary hospital-based treating physician using their own independent medical judgment for their patient. Time Spent Reviewing Chart: 11 - 20 minutes WBC 14.76 --> 8.72 BAL cultures growing Aspergillus species thus far Results & Data Vital Signs (Past 12 Hours) Vital Signs Temp Pulse Pulse Resp BP Pulse Ox O2 Del Method 08/25/25 11:46 95 Nasal Cannula 08/25/25 11:20 36.4 C L 90 20 136/68 96 Nasal Cannula 08/25/25 07:44 Nasal Cannula 08/25/25 07:43 36.4 C L 108 H 20 119/74 95 Nasal Cannula 08/25/25 07:04 93 H 08/25/25 02:42 36.4 C L 103 H 18 119/72 94 Nasal Cannula O2 Flow Rate 08/25/25 11:46 2 08/25/25 11:20 3 08/25/25 07:44 2 08/25/25 07:43 3 08/25/25 07:04 08/25/25 02:42 2
[2025-08-25] MEDS: LANTUS PER UNIT CHARGE SQ ONE (13:11)
--- NOTE | 2025-08-25 16:34 | Pulmonology Progress Note ---
Date of Service August 25, 2025 Assessment & Plan (1) Aspergillus pneumonia: Plan: * Continue Voriconazole per ID * Continue coverage for healthcare-associated pneumonia for the time being (2) COPD with emphysema: (3) Abnormal CT scan, chest: (4) Acute hypoxic respiratory failure: (5) Pulmonary cavitary lesion: (6) Hypoxia: (7) Ex-smoker: (8) On prednisone therapy: Admission and Anticipated Discharge Date Admission Date: August 24, 2025 Subjective The patient is a very pleasant 79-year-old male who presented to the ED with complaints of fever, generalized weakness, and vomiting. He had undergone a bronchoscopy with biopsy the previous day for evaluation of a right lower lobe (RLL) pulmonary mass, and began to feel chilled and weak later that evening, subsequently developing a fever up to 39C and multiple episodes of vomiting overnight. EMS found him hypoxic at home, with oxygen saturations in the high 80s, and he required supplemental oxygen upon arrival to the ED. Bronchoscopy performed the day prior had revealed thick, greenish-yellow, cheesy secretions in the RLL, which were drained. Preliminary cytology from the bronchoalveolar lavage (BAL) showed fungal elements consistent with Aspergillus species; bacterial, fungal, and AFB cultures were pending. The RLL lung biopsy was negative for malignancy but showed heavy inflammation. The patient was admitted with a diagnosis of acute hypoxic respiratory failure secondary to Aspergillus pneumonia with cavitary lung lesion, in the setting of chronic immunosuppression from prednisone for PMR and multiple comorbidities. He was started on IV Zosyn, azithromycin, vancomycin, and voriconazole. Anticoagulation was transitioned from warfarin to apixaban due to potential drug interactions with voriconazole. He was monitored closely for hemodynamic stability, with additional IV fluids administered for persistent hypotension, and plans for ICU transfer if vasopressors became necessary. Past medical history is significant for COPD with emphysema, bronchiectasis, HFpEF, permanent atrial fibrillation, DM2, HTN, hyperlipidemia, chronic steroid use for PMR, osteoporosis, osteoarthritis, prior NSTEMI, history of pneumonia and sepsis, aspiration pneumonitis, and multiple recent hospitalizations for pulmonary infections. Note from 08/25/2025: The patient reports feeling better overall. He continues to have occasional cough with brownish-red sputum. He denies dyspnea at rest. Leukocytosis resolved. BAL cultures growing fungus, but identity not available yet (highly likely Aspergillus as suspected on Cytology smears) Review of Systems Review of Systems: All systems reviewed & are unremarkable except as noted in HPI & below Physical Exam Physical Exam: General: In no acute distress, using Oxygen via nasal cannula. Obese. Skin: Warm and dry to touch. Noobvious lesions. Eyes: Anicteric.Noconjunctival hyperemia or exudates.No periorbital edema. ENT: No oral thrush. No oropharyngeal erythema or exudates. Modified-Mallampati 3 (Hard and soft palate seen). Neck: No palpable masses or adenopathy. Respiratory: Diffusely decreased breath sounds, no wheezing. Scattered inspiratory crackles bilaterally, more on the right. No use of accessory muscles and no prolonged exhalation. Cardiac: Distant sounds, regular rhythm, no murmurs, no gallops, no rubs; could not appreciate JV pulse elevation. GI: Soft, nontender. Extremities: Mild clubbing,no cyanosis,no edema. Neuro: No gross motor deficits. Seems appropriate. No facial-droop. Speech is clear. Results & Data Results & Data Vital Signs (Past 12 Hours) Vital Signs Temp Pulse Pulse Resp BP BP Pulse Ox 08/25/25 15:15 36.8 C 65 18 120/66 96 08/25/25 14:44 88 08/25/25 11:46 95 08/25/25 11:20 36.4 C L 90 20 136/68 96 08/25/25 07:44 08/25/25 07:43 36.4 C L 108 H 20 119/74 95 08/25/25 07:04 93 H O2 Del Method O2 Flow Rate 08/25/25 15:15 Nasal Cannula 2 08/25/25 14:44 08/25/25 11:46 Nasal Cannula 2 08/25/25 11:20 Nasal Cannula 3 08/25/25 07:44 Nasal Cannula 2 08/25/25 07:43 Nasal Cannula 3 08/25/25 07:04 PG Care Time/CCT Total # of Minutes Spent Total Time Spent with Patient: Total time spent is greater than 50% in coordination of care (as documented) at patient's floor/unit and/or counseling patient: 40 minutes Coding Level of Care Code 06759 SUB INP/OBS CARE 2/35MIN Diagnoses Aspergillus pneumonia B44.9 COPD with emphysema J43.[address] scan, chest R93.89 Acute hypoxic respiratory failure J96.01 Pulmonary cavitary lesion J98.4 Hypoxia R09.02 Ex-smoker Z87.891 On prednisone therapy Z79.52 Time Spent (min) 40
[2025-08-25] MEDS: LANTUS PER UNIT CHARGE SQ STA (20:57)
[2025-08-25] MEDS: VORICONAZOLE 200 MG TABLET PO SCH (21:18)
--- NOTE | 2025-08-26 01:43 | Communication Note ---
Date of Service: August 26, 2025 140 AM Patient had an unwitnessed fall as per RN. Tried to go to bathroom by himself. Head trauma post fall. No LOC. AP Head trauma secondary to fall Kimberly Rx CT head CT cervical spine Hold Kimberly for now 410 AM Patient later complaining of low back pain as per RN which was out of place. CTAP
--- NOTE | 2025-08-26 02:40 | CT Scan Report ---
EXAM: CT head/brain wo con CLINICAL HISTORY: head trauma, noac TECHNIQUE: Multiple axial images are obtained from the skull base to the vertex without contrast. CT scan was performed according to ALARA (as low as reasonably achievable). 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 FINDINGS: There is cerebral atrophy. Focal encephalomalacia is noted involving left parietal lobe - sequelae of prior insult.-stable. No evidence of space occupying lesion, hemorrhage, edema, mass effect, midline shift, extra axial collection, or hydrocephalus is noted. Basal cisterns are symmetric and normal in size and configuration. There are scattered periventricular hypodensities as can be seen with chronic microvascular ischemic changes. The scott-white matter differentiation is preserved. Visualized paranasal sinuses and mastoid air cells are well aerated. Orbital contents are within normal limits. Bony structures are intact. IMPRESSION: 1. No evidence of acute intracranial abnormality is demonstrated. 2. Chronic microvascular ischemic changes.-stable. 3. Cerebral atrophy.-stable. Electronically signed by Russel Mitchell 08-26-2025 02:40 AM
--- NOTE | 2025-08-26 02:43 | CT Scan Report ---
EXAM: CT cervical spine wo con CLINICAL HISTORY: fall TECHNIQUE: Computed tomography of the cervical spine performed without intravenous contrast. Contiguous axial images were obtained from the skull base to T2, with sagittal and coronal reformatted images reconstructed from the axial data. CT scan was performed according to ALARA (as low as reasonable achievable). COMPARISON: None. FINDINGS: Loss of cervical lordosis - suggest possibility of muscle spasm/positional. Degenerative changes involving cervical spine in the form of multilevel marginal osteophytes, disc space reduction and facetal arthrosis. Cervical vertebral bodies are normal in height and alignment, with no evidence of fracture or subluxation. Lateral masses of C1 are symmetrical, and the dens is intact. Prevertebral soft tissues are not widened. The remaining suprahyoid and infrahyoid soft tissues in the neck are unremarkable. Posterior uncovertebral arthrosis is noted at C5-C6 and C6-C7 level which indenting ventral thecal sac and causes bilateral neuroforaminal narrowing. Thyroid gland appears unremarkable. Possible bilateral pleural effusion. Ill-defined ground-glass opacities noted involving the right upper lobe. Paraseptal emphysematous changes in bilateral lung apices. IMPRESSION: No acute fracture or subluxation in the cervical spine. Cervical spondylosis. Possible bilateral pleural effusion. Ill-defined ground-glass opacities noted involving the right upper lobe. Electronically signed by Russel Mitchell 08-26-2025 02:43 AM
--- NOTE | 2025-08-26 05:41 | CT Scan Report ---
EXAM: CT abd pelvis wo con CLINICAL HISTORY: pain, fall, noac TECHNIQUE: Contiguous axial images were obtained from the level of the diaphragm to the pubic symphysis without intravenous or oral contrast. Coronal and sagittal reconstructions were likewise performed and indicated to increase the sensitivity for detecting clinically relevant pathology. CT scan was performed according to ALARA (as low as reasonably achievable). 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 Evaluation of the abdominal and pelvic visceral organs is limited without intravenous contrast. The unenhanced liver, spleen, pancreas, and adrenal glands are grossly unremarkable. The gallbladder is present. The kidneys are normal in size and attenuation without obvious calcification. There is no hydronephrosis. Moderate bilateral perinephric fat stranding The ureters are normal in caliber. No adenopathy or fluid collections are seen. No evidence of focal or diffuse bowel wall thickening or evidence of bowel obstruction is seen. No imaging evidence of appendicitis. The aorta is normal in caliber. The urinary bladder is normal in contour. Pelvic viscera are grossly unremarkable. No aggressive appearing osseous lesions are identified. Diffuse atherosclerotic calcification is noted involving aorta iliac arteries. IMPRESSION: Mild bilateral pleural effusion with basal subsegmental collapse of both lower lobes are seen. -increased Lobe right lower lobar consolidation is resolved. Moderate bilateral perinephric fat stranding-stable. No other new interval abnormality since prior study. Electronically signed by Russel Mitchell 08-26-2025 05:40 AM
[2025-08-26] MEDS: VANCOMYCIN LEVEL ONE (06:38)
[2025-08-26 07:30] LABS: Anion Gap 8.0 (3-11); Blood Urea Nitrogen 36.0 mg/dl (6-23); Calcium 8.6 mg/dl (8.6-10.3); Carbon Dioxide 24.0 mmol/L (21-32); Chloride 106.0 mmol/L (98-107); Creatinine Clr Calc Pharmacy 37.6 ml/min; Glucose 278.0 mg/dl (70-99(Fasting)); Potassium 4.4 mmol/L (3.5-5.1); Sodium 138.0 mmol/L (136-145)
[2025-08-26] MEDS ORDERED: LANTUS PER UNIT CHARGE SQ SCH ×2 (09:00)
--- NOTE | 2025-08-26 09:38 | Pharmacy Report ---
Pharmacy PK ABX Note - Date of Service August 26, 2025 - Assessment and Plan Assessment 79 year old M receiving vancomycin, piperacillin/tazobactam, azithromycin, and voriconazole for treatment of Aspergillus and possible bacterial pneumonia. Pertinent microbiologic data includes: Negative MRSA Nasal Swab, BAL 08/23/25 culture growing aspergillus fumigatus. Day #3 of antimicrobial therapy. Plan Vancomycin * Previous maintenance dose: 1000 mg IV every 24 hours * Trough level this AM was 10.7 - this is within range but may be slightly subtherapeutic * New regimen: 1250 mg IV every 24 hours * Regimen is predicted to achieve target AUC/LUZ MARINA of 400-600 mg/L.hr * Another vancomycin level will be ordered if continuing for more than a couple of days Pharmacy will continue to follow and will adjust dose/frequency as necessary. Thank you. Pharmacy has transitioned to AUC monitoring for vancomycin. AUC/LUZ MARINA is the preferred PK/PD target and is associated with decreased risk of nephrotoxicity compared to traditional trough targets.
[2025-08-26] MEDS: LANTUS PER UNIT CHARGE SQ SCH (10:17)
--- NOTE | 2025-08-26 12:20 | Hospitalist Progress Note ---
Date of Service August 26, 2025 Assessment & Plan (1) Severe sepsis with acute organ dysfunction: Plan: Resolved (2) Aspergillus pneumonia: (3) Acute hypoxic respiratory failure: Plan: Resolved (4) Acute metabolic encephalopathy: Plan: Resolved (5) Demand ischemia: (6) On prednisone therapy: (7) COPD with emphysema: (8) Permanent atrial fibrillation: (9) Diabetes mellitus type 2, insulin dependent: (10) Acute kidney injury: (11) Polymyalgia rheumatica: Plan Patient presented with sepsis due to Aspergillus pneumonia. Patient significantly improving. On room air, encephalopathy is cleared, strength returning. Reviewed infectious disease consultation/recommendations. Has been transition to oral voriconazole. Can discontinue antibiotics if cultures remain sterile Blood cultures no growth BAL culture no bacterial growth only Aspergillus to this point, will discontinue antibiotics Patient showing some volume overload, this was due to fluid resuscitation associated with his sepsis, give 1 dose of Lasix today Continue other medications Continue therapies Continue anticoagulation for secondary stroke prevention in the setting of atrial fibrillation Updated patient's son via phone Admission and Anticipated Discharge Date Admission Date: August 24, 2025 Subjective Events of last evening noted. Patient remembers the event. States he just slept on the floor. Denies any pain. Feels that he is getting stronger and better each day. Physical Exam Physical Exam: Constitutional: Alert, nontoxic HEENT: Mucous membranes moist. Lungs: Decreased breath sounds, rhonchi improving CV: S1-S2, irregular Abdomen: Soft, nontender, nondistended Extremities: No significant edema Neuro: No focal deficits Psych: Cooperative, normal mood Results & Data Results & Data Vital Signs (Past 12 Hours) Vital Signs Temp Pulse Pulse Resp BP BP Pulse Ox 08/26/25 11:37 36.5 C 86 18 128/76 95 08/26/25 07:16 36.3 C L 100 H 18 152/82 H 93 08/26/25 07:15 92 H 08/26/25 01:43 91 H 16 168/82 H 97 O2 Del Method 08/26/25 11:37 Room Air 08/26/25 07:16 Room Air 08/26/25 07:15 08/26/25 01:43 Room Air Diagnostic Findings Reviewed imaging, laboratory and diagnostic studies. Pertinent findings as below. Electrolytes stable Creatinine 1.59, stable Glucoses reviewed CT abdomen pelvis, head, cervical spine no acute abnormalities, no fracture. Some evidence of volume overload
[2025-08-26] MEDS: FUROSEMIDE 40 MG/4 ML VIAL IV ONE (12:45)
--- NOTE | 2025-08-26 12:47 | Pulmonology Progress Note ---
Date of Service August 26, 2025 Assessment & Plan (1) Aspergillus pneumonia: Plan: * Aspergillus fumigatus growing on one of BAL specimens; 2 other also growing fungus, probably same. 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 (3) COPD with emphysema: (4) Abnormal CT scan, chest: (5) Acute hypoxic respiratory failure: (6) Pulmonary cavitary lesion: (7) Hypoxia: (8) Ex-smoker: (9) On prednisone therapy: Admission and Anticipated Discharge Date Admission Date: August 24, 2025 Subjective The patient is a very pleasant 79-year-old male who presented to the ED with complaints of fever, generalized weakness, and vomiting. He had undergone a bronchoscopy with biopsy the previous day for evaluation of a right lower lobe (RLL) pulmonary mass, and began to feel chilled and weak later that evening, subsequently developing a fever up to 39C and multiple episodes of vomiting overnight. EMS found him hypoxic at home, with oxygen saturations in the high 80s, and he required supplemental oxygen upon arrival to the ED. Bronchoscopy performed the day prior had revealed thick, greenish-yellow, cheesy secretions in the RLL, which were drained. Preliminary cytology from the bronchoalveolar lavage (BAL) showed fungal elements consistent with Aspergillus species; bacterial, fungal, and AFB cultures were pending. The RLL lung biopsy w as negative for malignancy but showed heavy inflammation. The patient was admitted with a diagnosis of acute hypoxic respiratory failure secondary to Aspergillus pneumonia with cavitary lung lesion, in the setting of chronic immunosuppression from prednisone for PMR and multiple comorbidities. He was started on IV Zosyn, azithromycin, vancomycin, and voriconazole. Anticoagulation was transitioned from warfarin to apixaban due to potential drug interactions with voriconazole. He was monitored closely for hemodynamic stability, with additional IV fluids administered for persistent hypotension, and plans for ICU transfer if vasopressors became necessary. Past medical history is significant for COPD with emphysema, bronchiectasis, HFpEF, permanent atrial fibrillation, DM2, HTN, hyperlipidemia, chronic steroid use for PMR, osteoporosis, osteoarthritis, prior NSTEMI, history of pneumonia and sepsis, aspiration pneumonitis, and multiple recent hospitalizations for pulmonary infections. Note from 08/25/2025: The patient reports feeling better overall. He continues to have occasional cough with brownish-red sputum. He denies dyspnea at rest. Leukocytosis resolved. BAL cultures growing fungus, but identity not available yet (highly likely Aspergillus as suspected on Cytology smears) Note from 08/26/2025: Patient feels better. No significant cough, but continues to have blood-tinged sputum. I asked him to save specimen and let bedside nurse to call me so I can evaluate quantity. Review of Systems Review of Systems: All systems reviewed & are unremarkable except as noted in HPI & below Physical Exam Physical Exam: General: In no acute distress, using Oxygen via nasal cannula. Obese. Respiratory: Diffusely decreased breath sounds, no wheezing. Scattered inspir atory crackles bilaterally, more on the right. No use of accessory muscles and no prolonged exhalation. Cardiac: Distant sounds, regular rhythm, no murmurs, no gallops, no rubs; could not appreciate JV pulse elevation. GI: Soft, nontender. Extremities: Mild clubbing,no cyanosis,no edema. Neuro: No gross motor deficits. Seems appropriate. No facial-droop. Speech is clear. Results & Data Results & Data Vital Signs (Past 12 Hours) Vital Signs Temp Pulse Pulse Resp BP BP Pulse Ox 08/26/25 11:37 36.5 C 86 18 128/76 95 08/26/25 07:16 36.3 C L 100 H 18 152/82 H 93 08/26/25 07:15 92 H 08/26/25 01:43 91 H 16 168/82 H 97 O2 Del Method 08/26/25 11:37 Room Air 08/26/25 07:16 Room Air 08/26/25 07:15 08/26/25 01:43 Room Air Laboratory Results 08/24/25 07:49 Aerobic Blood Culture - Preliminary Blood No growth in Aerobic bottle after 48 hours. Anaerobic Blood Culture - Preliminary No growth in Anaerobic bottle after 48 hours. 08/24/25 07:31 Aerobic Blood Culture - Preliminary Blood No growth in Aerobic bottle after 48 hours. Anaerobic Blood Culture - Preliminary No growth in Anaerobic bottle after 48 hours. 08/26/25 08/26/25 08/26/25 12:10 12:09 08:14 Sodium Potassium Chloride Carbon Dioxide Anion Gap BUN Creatinine Est Cr Clr Drug Dosing eGFR BUN/Creatinine Ratio Glucose POC Glucose 339 H* 361 H* 280 H Calcium Random Vancomycin 08/26/25 08/26/25 08/25/25 06:16 00:19 20:08 Sodium 138 Potassium 4.4 Chloride 106 Carbon Dioxide 24 Anion Gap 8 BUN 36 H Creatinine 1.59 H Est Cr Clr Drug Dosing 37.6 eGFR 43.34 BUN/Creatinine Ratio 22.6 H Glucose 278 H POC Glucose 279 H 329 H* Calcium 8.6 Random Vancomycin 10.7 08/25/25 08/25/25 08/25/25 20:07 16:49 16:49 Sodium Potassium Chloride Carbon Dioxide Anion Gap BUN Creatinine Est Cr Clr Drug Dosing eGFR BUN/Creatinine Ratio Glucose POC Glucose 325 H* 320 H* 334 H* Calcium Random Vancomycin Diagnostic Findings Cervical Spine CT 08/26/25 01:41 EXAM: CT cervical spine wo con CLINICAL HISTORY: fall TECHNIQUE: Computed tomography of the cervical spine performed without intravenous contrast. Contiguous axial images were obtained from the skull base to T2, with sagittal and coronal reformatted images reconstructed from the axial data. CT scan was performed according to ALARA (as low as reasonable achievable). COMPARISON: None. FINDINGS: Loss of cervical lordosis - suggest possibility of muscle spasm/positional. Degenerative changes involving cervical spine in the form of multilevel marginal osteophytes, disc space reduction and facetal arthrosis. Cervical vertebral bodies are normal in height and alignment, with no evidence of fracture or subluxation. Lateral masses of C1 are symmetrical, and the dens is intact. Prevertebral soft tissues are not widened. The remaining suprahyoid and infrahyoid soft tissues in the neck are unremarkable. Posterior uncovertebral arthrosis is noted at C5-C6 and C6-C7 level which indenting ventral thecal sac and causes bilateral neuroforaminal narrowing. Thyroid gland appears unremarkable. Possible bilateral pleural effusion. Ill-defined ground-glass opacities noted involving the right upper lobe. Paraseptal emphysematous changes in bilateral lung apices. IMPRESSION: No acute fracture or subluxation in the cervical spine. Cervical spondylosis. Possible bilateral pleural effusion. Ill-defined ground-glass opacities noted involving the right upper lobe. Electronically signed by Russel Mitchell 08-26-2025 02:[address] 08/26/25 01:41 EXAM: CT head/brain wo con CLINICAL HISTORY: head trauma, noac TECHNIQUE: Multiple axial images are obtained from the skull base to the vertex without contrast. CT scan was performed according to ALARA (as low as reasonably achievable). COMPARISON: 08:09:43 [employer]. FINDINGS: There is cerebral atrophy. Focal encephalomalacia is noted involving left parietal lobe - sequelae of prior insult.-stable. No evidence of space occupying lesion, hemorrhage, edema, mass effect, midline shift, extra axial collection, or hydrocephalus is noted. Basal cisterns are symmetric and normal in size and configuration. There are scattered periventricular hypodensities as can be seen with chronic microvascular ischemic changes. The scott-white matter differentiation is preserved. Visualized paranasal sinuses and mastoid air cells are well aerated. Orbital contents are within normal limits. Bony structures are intact. IMPRESSION: 1. No evidence of acute intracranial abnormality is demonstrated. 2. Chronic microvascular ischemic changes.-stable. 3. Cerebral atrophy.-stable. Electronically signed by Russel Mitchell 08-26-2025 02:40 AM Abdomen/Pelvis CT 08/26/25 04:13 EXAM: CT abd pelvis wo con CLINICAL HISTORY: pain, fall, noac TECHNIQUE: Contiguous axial images were obtained from the level of the diaphragm to the pubic symphysis without intravenous or oral contrast. Coronal and sagittal reconstructions were likewise performed and indicated to increase the sensitivity for detecting clinically relevant pathology. CT scan was performed according to ALARA (as low as reasonably achievable). COMPARISON: 07/02/2025 10:24:45 [employer] FINDINGS: Mild bilateral pleural effusion with basal subsegmental collapse of both lower lobes are seen. Evaluation of the abdominal and pelvic visceral organs is limited without intravenous contrast. The unenhanced liver, spleen, pancreas, and adrenal glands are grossly unremarkable. The gallbladder is present. The kidneys are normal in size and attenuation without obvious calcification. There is no hydronephrosis. Moderate bilateral perinephric fat stranding The ureters are normal in caliber. No adenopathy or fluid collections are seen. No evidence of focal or diffuse bowel wall thickening or evidence of bowel obstruction is seen. No imaging evidence of appendicitis. The aorta is normal in caliber. The urinary bladder is normal in contour. Pelvic viscera are grossly unremarkable. No aggressive appearing osseous lesions are identified. Diffuse atherosclerotic calcification is noted involving aorta iliac arteries. IMPRESSION: Mild bilateral pleural effusion with basal subsegmental collapse of both lower lobes are seen. -increased Lobe right lower lobar consolidation is resolved. Moderate bilateral perinephric fat stranding-stable. No other new interval abnormality since prior study. Electronically signed by Russel Mitchell 08-26-2025 05:40 AM Medications Administered Home Medications Medication Instructions Recorded Confirmed Last Taken alendronate 70 mg tablet (Fosamax) 70 mg PO WK 12/25/21 08/24/25 1 Week Ago ~08/16/25 atorvastatin 20 mg tablet (Lipitor) 20 mg PO QPM 12/25/21 08/24/25 08/22/25 duloxetine 20 mg capsule,delayed 20 mg PO QPM 12/25/21 08/24/25 08/22/25 release prednisone 5 mg tablet 5 mg PO BID 12/25/21 08/24/25 08/23/25 05:00 warfarin 5 mg tablet 2.5 - 5 mg PO DAILY 12/25/21 08/24/25 08/17/25 enalapril maleate 10 mg tablet 10 mg PO QAM #30 tabs 01/03/23 08/24/25 08/22/25 metoprolol tartrate 50 mg tablet 50 mg PO BID #60 tabs 01/03/23 08/24/25 08/23/25 05:00 acetaminophen 500 mg capsule 1,000 mg PO UD PRN Pain 07/26/25 08/24/25 08/22/25 lancets 33 gauge (OneTouch Delica 07/26/25 07/26/25 Unknown Plus Lancet) tirzepatide 2.5 mg/0.5 mL 2.5 mg subcut WK 07/26/25 08/24/25 08/10/25 subcutaneous pen injector (Ismael) B12 + Vitamin D 2 dose PO QPM 08/14/25 08/24/25 08/22/25 insulin degludec 200 unit/mL (3 28 unit subcut QAM 08/14/25 08/24/25 08/23/25 05:00 mL) subcutaneous pen (Tresiba FlexTouch U-200 insulin) apixaban 2.5 mg tablet (Eliquis) 2.5 mg PO BID 30 days #60 tabs 08/24/25 Unknown Active Medications Generic Name Dose Route Start Last Admin Trade Name Freq PRN Reason Stop Dose Admin Acetaminophen 650 mg 08/24/25 14:00 08/24/25 18:37 Acetaminophen 325 Mg Tab PO 09/23/25 13:59 650 mg Q4H PRN Administration pain/fever Apixaban 2.5 mg 08/24/25 11:00 08/26/25 10:18 Apixaban 2.5 Mg Tab PO 09/23/25 10:59 2.5 mg BID AIMEE Administration Atorvastatin Calcium 20 mg 08/24/25 21:00 08/25/25 20:53 Atorvastatin 20 Mg Tab PO 09/23/25 20:59 20 mg QPM AIMEE Administration Duloxetine HCl 20 mg 08/24/25 21:00 08/25/25 20:54 Duloxetine Hcl 20 Mg Cap PO 09/23/25 20:59 20 mg QPM AIMEE Administration Insulin Aspart 0 units 08/24/25 11:30 08/26/25 10:16 Insulin Aspart Per Unit Charge SC 09/23/25 11:29 12 units ACHS AIMEE Administration Insulin Glargine 25 units 08/26/25 09:00 08/26/25 10:17 Lantus Per Unit Charge SQ 09/25/25 08:59 25 units BID AIMEE Administration Metoprolol Tartrate 50 mg 08/25/25 10:30 08/26/25 10:19 Metoprolol Tartrate 50 Mg Tab PO 09/24/25 10:29 50 mg BID AMIEE Administration Prednisone 5 mg 08/25/25 09:00 08/26/25 10:19 Prednisone 5 Mg Tab PO 09/24/25 08:59 5 mg BID AIMEE Administration Voriconazole 200 mg 08/25/25 21:00 08/26/25 10:19 Voriconazole 200 Mg Tablet PO 09/24/25 20:59 200 mg BID AIMEE Administration PG Care Time/CCT Total # of Minutes Spent Total Time Spent with Patient: Total time spent is greater than 50% in coordination of care (as documented) at patient's floor/unit and/or counseling patient: Coding Level of Care Code 07485 SUB INP/OBS CARE 2/35MIN Diagnoses Aspergillus pneumonia B44.9 Hemoptysis R04.2 COPD with emphysema J43.[address] scan, chest R93.89 Acute hypoxic respiratory failure J96.01 Pulmonary cavitary lesion J98.4 Hypoxia R09.02 Ex-smoker Z87.891 On prednisone therapy Z79.52 Time Spent (min) 40
[2025-08-27] MEDS ORDERED: VANCOMYCIN HCL 1,250 MG in SODIUM CHLORIDE 0.9% 250 ML IV SCH (06:00)
[2025-08-27 07:07] LABS: Creatinine Clr Calc Pharmacy 44.6 ml/min
[2025-08-27] MEDS: METOPROLOL TARTRATE 25 MG TAB PO SCH (08:35)
--- NOTE | 2025-08-27 09:28 | Oncology Consultation ---
Date of Consultation August 27, 2025 Assessment & Plan (1) Decreased immunoglobulin M: (2) Diabetes mellitus type 2, insulin dependent: (3) Aspergillus pneumonia: Plan Patient has multiple comorbidities which increases risk for Aspergillus pneumonia. Quantitative immunoglobulins revealed normal IgG level of greater than 1000. Although IgM was slightly low, do not think this contributed to Aspergillus pneumonia. Regarding IVIG/immunoglobulin replacement this contains mostly IgG and very little IgM and is typically not recommended for mildly low IgM level. At this point, do not see any benefit to giving IVIG. Could consider immunology evaluation if pulmonology feels IVIG might be beneficial. History of Present Illness Reason for Consultation: low IgM, Aspergillous, eval for IVIg per pulm requ Attending Physician: Maurice Aburto DO History of Present Illness 79-year-old gentleman with multiple comorbidities including COPD, PMR on chronic prednisone, hypertension, diabetes mellitus admitted to [facility] for pneumonia secondary to Aspergillus. Hematology was consulted due to low IgM. IgG was normal at 1133, IgA slightly elevated at 441 with IgM of 31.9. Allergies Allergy/AdvReac Type Severity Reaction Status Date / Time oxycodone Allergy Intermediate WHEEZING, Verified 08/23/25 06:07 maybe trouble breathing Home Medications Medication Instructions Recorded Confirmed Type alendronate 70 mg tablet (Fosamax) 70 mg PO WK 12/25/21 08/24/25 History atorvastatin 20 mg tablet (Lipitor) 20 mg PO QPM 12/25/21 08/24/25 History duloxetine 20 mg capsule,delayed 20 mg PO QPM 12/25/21 08/24/25 History release prednisone 5 mg tablet 5 mg PO BID 12/25/21 08/24/25 History warfarin 5 mg tablet 2.5 - 5 mg PO DAILY 12/25/21 08/24/25 History enalapril maleate 10 mg tablet 10 mg PO QAM #30 tabs 01/03/23 08/24/25 Rx metoprolol tartrate 50 mg tablet 50 mg PO BID #60 tabs 01/03/23 08/24/25 Rx acetaminophen 500 mg capsule 1,000 mg PO UD PRN Pain 07/26/25 08/24/25 History lancets 33 gauge (OneTouch Delica 07/26/25 07/26/25 History Plus Lancet) tirzepatide 2.5 mg/0.5 mL 2.5 mg subcut WK 07/26/25 08/24/25 History subcutaneous pen injector (Mounjaro) B12 + Vitamin D 2 dose PO QPM 08/14/25 08/24/25 History insulin degludec 200 unit/mL (3 28 unit subcut QAM 08/14/25 08/24/25 History mL) subcutaneous pen (Tresiba FlexTouch U-200 insulin) apixaban 2.5 mg tablet (Eliquis) 2.5 mg PO BID 30 days #60 tabs 08/24/25 Rx Patient History Medical History (Updated 08/27/25 @ 12:16 by Scott Abrams MD) Hx of non-ST elevation myocardial infarction (NSTEMI) 10/2024 [facility] admission: type II NSTEMI vs demand ischemia Bronchiectasis Pulmonary mass COPD (chronic obstructive pulmonary disease) emphysema History of pneumonia pt was tx for PNA based on 07/2025 chest imaging (per pulm, PNA vs mass) History of sepsis (10/2024) hospitalized [facility]. History of recent hospitalization pt has had multiple recent hospitalizations; most recent: [facility] 07/02-07/04/25: pt with vomiting 2/2 starting GLP1 and possible aspiration PNA; required 2L O2 NC for short time but weaned; D/C on Augmentin Osteoporosis Aspiration pneumonitis hx hospitalization [facility] 10/2024. Chronic steroid use for PMR Polymyalgia rheumatica takes prednisone BID to manage. Osteoarthritis Diabetes mellitus, type 2 On anticoagulant therapy coumadin for afib Hyperlipidemia Hypertension Atrial fibrillation Surgical History History of left cataract surgery History of right cataract surgery History of arthroscopy of left shoulder S/P left knee arthroscopy History of colonoscopy H/O eye surgery bilateral tear duct procedures to place a "drain" Family History Other No family history of adverse response to anesthesia Social History Smoking Status: Former smoker Tobacco Type: Cigarettes Age Started Using Tobacco: 12; Age Quit Using Tobacco: 38; packs per day: 2; Second Hand Exposure: No; Do You Dip or Chew Tobacco: No; Hx Alcohol Use: No Hx Substance Use: No Preferred Language: Guinean Communication Ability: Effective Shaper Operator Required: No Beliefs That Will Affect Care: None marital status: Current Living Situation: Spouse Current Living Situation Comment: one story house with one cat Feels Safe at Home: Yes Assistive Devices: None Results & Data Vital Signs (Past 12 Hours) Vital Signs Temp Pulse Resp BP Pulse Ox O2 Del Method 08/27/25 07:17 36.5 C 94 H 16 155/76 H 95 Room Air
--- NOTE | 2025-08-27 11:34 | Hospitalist Progress Note ---
Date of Service August 27, 2025 Assessment & Plan (1) Severe sepsis with acute organ dysfunction: Plan: Resolved (2) Aspergillus pneumonia: (3) Acute hypoxic respiratory failure: Plan: Resolved (4) Acute metabolic encephalopathy: Plan: Resolved (5) Demand ischemia: (6) On prednisone therapy: (7) COPD with emphysema: (8) Permanent atrial fibrillation: (9) Diabetes mellitus type 2, insulin dependent: (10) Acute kidney injury: (11) Polymyalgia rheumatica: Plan Patient 79-year-old gentleman with Aspergillus pneumonia and pulmonary abscess. Presented with early shock and sepsis, has significantly improved Continue oral voriconazole Has done well since discontinuing antibiotics, no data to indicate need for additional antibiotics Blood glucose has significantly improved with adjustment of basal insulin, continue to monitor glucose and treat with insulin Acute kidney injury has resolved, edema has improved, no additional IV Lasix today Increase metoprolol for better blood pressure and heart rate control Communication with Dr. Abrams-concerned about low IgM, requested hematology consultation to consider IVIG Physical therapy evaluation ongoing, may need rehab placement, case management evaluation Admission and Anticipated Discharge Date Admission Date: August 24, 2025 Subjective Patient states she is continuing to feel better each day. Still somewhat weak and therapies recommending rehab Physical Exam Physical Exam: Constitutional: Alert, nontoxic HEENT: Mucous membranes moist. Lungs: Decreased breath sounds, increased/improved airflow, rhonchi improving CV: S1-S2, irregular Abdomen: Soft, nontender, nondistended Extremities: Decreased edema Neuro: No focal deficits Psych: Cooperative, normal mood Results & Data Results & Data Vital Signs (Past 12 Hours) Vital Signs Temp Pulse Resp BP Pulse Ox O2 Del Method 08/27/25 10:18 Room Air 08/27/25 07:17 36.5 C 94 H 16 155/76 H 95 Room Air Diagnostic Findings Reviewed imaging, laboratory and diagnostic studies. Pertinent findings as below. Creatinine 1.34, improved Glucoses reviewed, overall improved Hemoglobin A1c 11.5 IgM 31.9, decreased IgA 441.8 slightly increased No bacteria growing in any of the BAL, sputum, blood cultures
--- NOTE | 2025-08-27 12:12 | Pulmonology Progress Note ---
Date of Service August 27, 2025 Assessment & Plan (1) Aspergillus pneumonia: Plan: * Invasive Aspergillosis * Aspergillus fumigatus growing on one of BAL specimens; 2 other also growing fungus, probably same. 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 (3) Decreased immunoglobulin M: Plan: * Consider Hematology consult for potential for benefit from IVIg in patient with invasive Aspergillosis. (4) COPD with emphysema: (5) Abnormal CT scan, chest: (6) Acute hypoxic respiratory failure: Plan: * Resolved. (7) Pulmonary cavitary lesion: (8) Hypoxia: (9) Ex-smoker: (10) On prednisone therapy: Admission and Anticipated Discharge Date Admission Date: August 24, 2025 Subjective The patient is a very pleasant 79-year-old male who presented to the ED with complaints of fever, generalized weakness, and vomiting. He had undergone a bronchoscopy with biopsy the previous day for evaluation of a right lower lobe (RLL) pulmonary mass, and began to feel chilled and weak later that evening, subsequently developing a fever up to 39C and multiple episodes of vomiting overnight. EMS found him hypoxic at home, with oxygen saturations in the high 80s, and he required supplemental oxygen upon arrival to the ED. Bronchoscopy performed the day prior had revealed thick, greenish-yellow, cheesy secretions in the RLL, which were drained. Preliminary cytology from the bronchoalveolar lavage (BAL) showed fungal elements consistent with Aspergillus species; bacterial, fungal, and AFB cultures were pending. The RLL lung biopsy was negative for malignancy but showed heavy inflammation. The patient was admitted with a diagnosis of acute hypoxic respiratory failure secondary to Aspergillus pneumonia with cavitary lung lesion, in the setting of chronic immunosuppression from prednisone for PMR and multiple comorbidities. He was started on IV Zosyn, azithromycin, vancomycin, and voriconazole. Anticoagulation was transitioned from warfarin to apixaban due to potential drug interactions with voriconazole. He was monitored closely for hemodynamic stability, with additional IV fluids administered for persistent hypotension, and plans for ICU transfer if vasopressors became necessary. Past medical history is significant for COPD with emphysema, bronchiectasis, HFpEF, permanent atrial fibrillation, DM2, HTN, hyperlipidemia, chronic steroid use for PMR, osteoporosis, osteoarthritis, prior NSTEMI, history of pneumonia and sepsis, aspiration pneumonitis, and multiple recent hospitalizations for pulmonary infections. Note from 08/25/2025: The patient reports feeling better overall. He continues to have occasional cough with brownish-red sputum. He denies dyspnea at rest. Leukocytosis resolved. BAL cultures growing fungus, but identity not available yet (highly likely A spergillus as suspected on Cytology smears) Note from 08/26/2025: Patient feels better. No significant cough, but continues to have blood-tinged sputum. I asked him to save specimen and let bedside nurse to call me so I can evaluate quantity. Note from 08/27/2025: Patient denies dyspnea at rest or on ambulation. He has infrequent cough, and denies any further sputum production or hemoptysis. Review of Systems Review of Systems: All systems reviewed & are unremarkable except as noted in HPI & below Physical Exam Physical Exam: General: In no acute distress, using Oxygen via nasal cannula. Obese. Respiratory: Diffusely decreased breath sounds, no wheezing. Scattered inspiratory crackles bilaterally, more on the right, but seem improved compared to previous studies. No use of accessory muscles and no prolonged exhalation. Cardiac: Distant sounds, regular rhythm, no murmurs, no gallops, no rubs; could not appreciate JV pulse elevation. GI: Soft, nontender. Extremities: Mild clubbing,no cyanosis,no edema. Neuro: No gross motor deficits. Seems appropriate. No facial-droop. Speech is clear. Results & Data Results & Data Vital Signs (Past 12 Hours) Vital Signs Temp Pulse Resp BP Pulse Ox O2 Del Method 08/27/25 10:18 Room Air 08/27/25 07:17 36.5 C 94 H 16 155/76 H 95 Room Air Laboratory Results Laboratory Tests 08/24/25 10:14 IgM 31.9 L 08/24/25 12:18 Fungal Smear - Final Blood Fungal Culture - Preliminary No yeast or fungus isolated - Report 1, Additional Report to Follow. 08/24/25 07:49 Aerobic Blood Culture - Preliminary Blood No growth in Aerobic bottle after 48 hours. Anaerobic Blood Culture - Preliminary No growth in Anaerobic bottle after 48 hours. 08/24/25 07:31 Aerobic Blood Culture - Preliminary Blood No growth in Aerobic bottle after 48 hours. Anaerobic Blood Culture - Preliminary No growth in Anaerobic bottle after 48 hours. 08/27/25 08/27/25 08/27/25 11:22 07:23 06:06 Creatinine 1.34 Est Cr Clr Drug Dosing 44.6 eGFR 53.22 POC Glucose 172 H 168 H 08/26/25 08/26/25 08/26/25 20:06 17:07 12:10 Creatinine Est Cr Clr Drug Dosing eGFR POC Glucose 169 H 145 H 339 H* Medications Administered Home Medications Medication Instructions Recorded Confirmed Last Taken alendronate 70 mg tablet (Fosamax) 70 mg PO WK 12/25/21 08/24/25 1 Week Ago ~08/16/25 atorvastatin 20 mg tablet (Lipitor) 20 mg PO QPM 12/25/21 08/24/25 08/22/25 duloxetine 20 mg capsule,delayed 20 mg PO QPM 12/25/21 08/24/25 08/22/25 release prednisone 5 mg tablet 5 mg PO BID 12/25/21 08/24/25 08/23/25 05:00 warfarin 5 mg tablet 2.5 - 5 mg PO DAILY 12/25/21 08/24/25 08/17/25 enalapril maleate 10 mg tablet 10 mg PO QAM #30 tabs 01/03/23 08/24/25 08/22/25 metoprolol tartrate 50 mg tablet 50 mg PO BID #60 tabs 01/03/23 08/24/25 08/23/25 05:00 acetaminophen 500 mg capsule 1,000 mg PO UD PRN Pain 07/26/25 08/24/25 08/22/25 lancets 33 gauge (OneTouch Delica 07/26/25 07/26/25 Unknown Plus Lancet) tirzepatide 2.5 mg/0.5 mL 2.5 mg subcut WK 07/26/25 08/24/25 08/10/25 subcutaneous pen injector (Ismael) B12 + Vitamin D 2 dose PO QPM 08/14/25 08/24/25 08/22/25 insulin degludec 200 unit/mL (3 28 unit subcut QAM 08/14/25 08/24/25 08/23/25 05:00 mL) subcutaneous pen (Tresiba FlexTouch U-200 insulin) apixaban 2.5 mg tablet (Eliquis) 2.5 mg PO BID 30 days #60 tabs 08/24/25 Unknown Active Medications Generic Name Dose Route Start Last Admin Trade Name Freq PRN Reason Stop Dose Admin Acetaminophen 650 mg 08/24/25 14:00 08/24/25 18:37 Acetaminophen 325 Mg Tab PO 09/23/25 13:59 650 mg Q4H PRN Administration pain/fever Apixaban 2.5 mg 08/24/25 11:00 08/27/25 08:35 Apixaban 2.5 Mg Tab PO 09/23/25 10:59 2.5 mg BID AIMEE Administration Atorvastatin Calcium 20 mg 08/24/25 21:00 08/26/25 20:32 Atorvastatin 20 Mg Tab PO 09/23/25 20:59 20 mg QPM AIMEE Administration Duloxetine HCl 20 mg 08/24/25 21:00 08/26/25 20:32 Duloxetine Hcl 20 Mg Cap PO 09/23/25 20:59 20 mg QPM AIMEE Administration Insulin Aspart 0 units 08/24/25 11:30 08/27/25 08:36 Insulin Aspart Per Unit Charge SC 09/23/25 11:29 9 units ACHS AIMEE Administration Insulin Glargine 25 units 08/26/25 09:00 08/27/25 08:37 Lantus Per Unit Charge SQ 09/25/25 08:59 25 units BID AIMEE Administration Metoprolol Tartrate 75 mg 08/27/25 09:00 08/27/25 08:35 Metoprolol Tartrate 25 Mg Tab PO 09/26/25 08:59 75 mg BID AIMEE Administration Prednisone 5 mg 08/25/25 09:00 08/27/25 08:35 Prednisone 5 Mg Tab PO 09/24/25 08:59 5 mg BID AIMEE Administration Voriconazole 200 mg 08/25/25 21:00 08/27/25 08:36 Voriconazole 200 Mg Tablet PO 09/24/25 20:59 200 mg BID AIMEE Administration PG Care Time/CCT Total # of Minutes Spent Total Time Spent with Patient: Total time spent is greater than 50% in coordination of care (as documented) at patient's floor/unit and/or counseling patient: 40 minutes Coding Level of Care Code 50257 SUB INP/OBS CARE 2/35MIN Diagnoses Aspergillus pneumonia B44.9 Hemoptysis R04.2 Decreased immunoglobulin M D80.4 COPD with emphysema J43.[address] scan, chest R93.89 Acute hypoxic respiratory failure J96.01 Pulmonary cavitary lesion J98.4 Hypoxia R09.02 Ex-smoker Z87.891 On prednisone therapy Z79.52 Time Spent (min) 40
[2025-08-27 17:53] LABS: Fungitell (1-3)-B-D-Glucan 31 pg/mL (<60); Fungitell Interpretation Negative
--- NOTE | 2025-08-28 07:51 | Pulmonology Progress Note ---
Date of Service August 28, 2025 Assessment & Plan (1) Aspergillus pneumonia: (2) COPD with emphysema: (3) Abnormal CT scan, chest: (4) Acute hypoxic respiratory failure: (5) Pulmonary cavitary lesion: (6) Hypoxia: (7) Ex-smoker: (8) On prednisone therapy: Plan CT chest 08/24/2025 personally reviewed: Centrilobular and paraseptal emphysema appreciated bilaterally Interlobular thickening appreciated Cavitary lesion in the right lower lobe where the pulmonary mass was Minimal bilateral pleural effusion Mild right hilar and subcarinal lymphadenopathy 2D echo 02/13/2025: EF 65-70%, moderate concentric LVH, RV hyperdynamic, no pulmonary hypertension --Acute hypoxic respiratory failure secondary to Aspergillus pneumonia right lower lobe opacity now with cavitary lesion 3.2 cm x 5.5 cm [id number] smoking history In a patient who is on chronic 5 mg prednisone BNP 323 s/p robotic bronchoscopy 08/23/2025: Showed mucous plugging with pus drainage. BAL showing Aspergillus Nasal MRSA negative Absolute eosinophil count 180 on 07/02/2025 CT chest 02/11/2025 personally reviewed: Centrilobular and paraseptal emphysema appreciated bilaterally Right lower lobe 3.2 cm x 5.5 cm dense opacity No significant mediastinal lymphadenopathy --COPD with emphysema Gold A 49-[id number] smoking history, quit in his 40s Good functional status Okay to monitor the patient off maintenance inhalers right now NIOX 07/26/2025: 36, intermediate Spirometry 07/26/2025 personally reviewed: No obstructive lung dysfunction FVC 3.19 L 80%, FEV1 2.49 L 88%, FEV1/FVC 78% --Ex-smoker [id number] smoking history Quit in his early 40s Encouraged to continue abstinence from smoking --History of A-fib On warfarin and beta-sara at home -- Polymyalgia rheumatica with chronic steroid use On 5 mg twice daily of prednisone on a daily basis Plan: In/out: +7.4 L since coming to the hospital Patient most likely had abscess in the right lower lobe which I drained through bronchoscopy on 08/23/2025 When it comes to the CT of the chest showing cavitary lesion, I think the patient already had necrosis significant within that area and cavity was already forming it is just that because I removed the pus from the cavity it is showing up on the latest CAT scan of the chest CT abdomen pelvis from 08/26/2025 shows bilateral pleural effusion. I gave 20 mg of Lasix to the patient but patient refused to take it as last time when he got Lasix he was running to the bathroom I offered him urinal as well as Carreno catheter but he refused both he says he wants to see if he gets better without the Lasix Continue with antifungals Infectious disease on board Follow-up RAST panel, IgE as well as Aspergillus antibody titers Case was discussed with primary team and RN at bedside I spent more than 40 minutes looking in the chart, images, discussing the plan of care with the patient, RN as well as primary team Please note the above document was generated using voice recognition software. It may contain grammatical, syntax or spelling errors.Any formal questions or concerns about the content, text or information contained within the body of this dictation should be directly addressed to the provider for clarification. Admission and Anticipated Discharge Date Admission Date: August 24, 2025 Subjective Patient seen and examined at bedside. No acute distress, no adverse events overnight He was saturating 92-93% on room air Patient's was also in the room Overall he says he is feeling much better compared to how he came to the hospital Denies any fever or chills Has been diuresing well No nausea or vomiting Fair appetite Review of Systems 2 Review of Systems: All systems reviewed & are unremarkable except as noted in Subjective Physical Exam 2 Physical Exam: Constitutional: No acute distress HEENT: EOMI, PERRLA Respiratory system: Decreased air entry bilaterally, no wheeze, rhonchi, positive crackles bilaterally lower lobes CVS: S1-S2 positive, no murmurs or gallops Abdomen: Soft, nontender, nondistended, positive bowel sounds x4, obese Extremities: +2 pulses bilaterally radialis/ dorsalis pedis, no cyanosis, no edema Neuro: Awake alert oriented x3 Psych: Normal mood and affect G/U: No Carreno Skin: no rashes, warm and dry Lymphatic: no cervical or axillary lymphadenopathy Results & Data Results & Data Vital Signs (Past 12 Hours) Vital Signs Temp Pulse Resp BP Pulse Ox O2 Del Method 08/27/25 23:00 36.3 C L 82 18 120/70 95 Room Air 08/27/25 20:45 Room Air Laboratory Results 08/25/25 06:40 11/16/25 06:06 PG Care Time/CCT Total # of Minutes Spent Total Time Spent with Patient: Total time spent is greater than 50% in coordination of care (as documented) at patient's floor/unit and/or counseling patient: Coding Level of Care Code 34136 SUB INP/OBS CARE 2/35MIN Diagnoses Aspergillus pneumonia B44.9 COPD with emphysema J43.[address] scan, chest R93.89 Acute hypoxic respiratory failure J96.01 Pulmonary cavitary lesion J98.4 Hypoxia R09.02 Ex-smoker Z87.891 On prednisone therapy Z79.52
[2025-08-28] MEDS: FUROSEMIDE INJ 20 MG/2 ML VIAL IV ONE (08:03)
[2025-08-28] MEDS: LANTUS PER UNIT CHARGE SQ SCH (08:03)
--- NOTE | 2025-08-28 08:26 | Infectious Disease Progress Nt ---
Date of Service August 28, 2025 Assessment & Plan (1) Pulmonary cavitary lesion: (2) Aspergillus pneumonia: Plan Problems: #Invasive pulmonary Aspergillosis #COPD #PMR on chronic pred #T2DM Micro: 08/25 Aspergillus Ag: pending 08/25 BDG: neg 08/24 BCx x2: NGTD 08/24 RVP: neg 08/23 RLL BAL BAL cx (before washing): Fungus, identification to follow. GS neg Fungal cx (before washing): Fungus AFB cx (before washing): pending. Smear neg BAL cx (after washing): Aspergillus fumigatus. GS neg (sensitivities pending) Fungal cx (after washing): Aspergillus fumigatus AFB cx (after washing): pending. Smear neg Histo/Blasto PCR: pending PJP PCR: pending Aspergillus Ag: pending Cocci PCR: pending Legionella PCR: pending Adenovirus PCR: pending Flu, RSV PCR: pending 11/06 Sputum cx: E coli (esquivel-S) Abx: Zosyn 08/24 - 08/26 Vanc 08/24 - 08/26 Azithro 08/24 - 08/25 Voriconazole 08/24 - present 79 yo M with history of chronic afib on Coumadin, DM2, HTN, PMR on chronic prednisone, COPD who presented on 08/24 with fever, weakness, vomiting, admitted with RLL pneumonia and concern for invasive pulmonary Aspergillosis. He was recently admitted to [facility] 07/02-07/04 with aspiration pneumonitis vs pneumonia, treated with Unasyn --> Augmentin. 07/02 CXR showed perihilar R midlung airspace opacity concerning for pneumonia, and 07/02 CT AP showed R basilar airspace opacity suspicious for pneumonia. An outpatient CT chest was performed on 07/17 to follow-up his CT from February 2025. This showed: Spiculated mass superior segment RLL where there were small nodules on prior exam and highly suspicious for malignancy and measuring 5.5 x 3.2 cm transversely. He was then seen in pulm clinic on 07/26, where the pt reported being asymptomatic without fevers, chills, chest pain, or cough. He denied sign ificant breathing issues. The mass-like consolidation on CT chest, new from 02/2025, was felt more likely to be infectious given the rapid growth. He was prescribed cefpodoxime 200 mg PO BID x 14 days. He then underwent bronchoscopy on 08/23/25. Pt and family report that he was feeling fine prior to his bronchoscopy, without coughing or shortness of breath. Bronch showed the RLL superior segment was plugged with thick greenish-yellow phlegm cheesy in consistency. Biopsies performed. BAL obtained, with bacterial, fungal, and AFB cultures. RLL lung biopsy is negative for malignancy, shows heavily inflamed bronchial alveolar tissue, and GMS stain negative for fungal organisms. RLL BAL and brushing cytology shows fungal organisms consistent with an Aspergillus species. Lymph node biopsy is negative for malignancy and fungal organisms. Around 5am the day following his bronchoscopy, pt woke up feeling very cold. reports things went downhill, and pt had fevers, dry heaves, could barely w alk to the bathroom. In the ED, pt was febrile to 39, HR 113, BP 108/63, RR 16, 87% on room air, placed on 2 L NC, then increased to 6 L oxymask. Labs showed WBC 14.76, Cr 1.66, procal 1.83. UA with 0-5 WBCs. RVP negative, MRSA nares negative. CT chest with progressively worsened consolidation through R lung, now with areas of central cavitation suggestive of worsening pneumonia. CT A/P without findings of infection. Discussed with Dr. Ramsey of pulm. 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 Pt started on Zosyn, azithro, vanc, and voriconazole. Per pulm, fever is most likely a reaction to RLL abscess which was drained through bronchoscopy. Converse that pt likely already had necrosis within the RLL lesion, and the cavity is seen on CT chest now because of the pus removed during bronchoscopy. Pt improved 08/25--afebrile, leukocytosis downtrended, now on 2 L NC. BAL cultures growing Aspergillus fumigatus, no bacteria. Antibiotics discontinued 08/25. Aspergillus sensitivities sent out to [place]. Switched from IV to PO voriconazole on 08/25. Recommendations: - Continue voriconazole 200 mg PO BID. Will need at least 6-12 week course of antifungal therapy, pending clinical improvement. - Voriconazole dose was already given prior to voriconazole trough lab draw this AM, so retimed voriconazole trough for this evening. Please ensure it is drawn ~30 min prior to PM dose of voriconazole. This is a send out test, may take 3-7 days to return - Follow-up Aspergillus sensitivities--may take several weeks to return per micro lab - Follow-up pending 08/23 BAL studies (Histo/Blasto, PJP, Cocci, Legionella PCRs, Aspergillus Ag) and serum Aspergillus Ag - Please arrange for ID follow-up locally Will sign off. Admission and Anticipated Discharge Date Admission Date: August 24, 2025 Subjective Subsequent visit was provided via telemedicine using two-way real-time interactive telecommunication between the patient and the telemedicine provider. For the duration of the visit, the provider was performing the assessment from a different facility than the patient. This includesuse of bluetooth stethoscope forauscultationperformed by the telepresenter that the telemedicine provider can hear if described in the physical exam. Site Safety Manager contact information: Please call [facility] . (Phone Number For Physician Use Only) After establishing a telemedicine visit, patient was: Patient was verified with two unique identifiers, Patient/authorized rep acknowledged consent and understanding and Gave permission to continue telehealth session Time Spent with Patient: Subsequent => 25 min Afebrile WBC 8.72 On room air Review of System A complete ROS was performed and is negative except as mentioned in the HPI. Physical Exam Physical Exam: GEN: elderly man in bed in NAD. RESP: No increased work of breathing SKIN: No lesions or rashes on exposed skin. NEURO: Alert and oriented. Answers all questions appropriately. Speech not slurred. PSYCH: Normal mood, affect appropriate. Results & Data Vital Signs (Past 12 Hours) Vital Signs Temp Pulse Resp BP Pulse Ox O2 Del Method 08/27/25 23:00 36.3 C L 82 18 120/70 95 Room Air 08/27/25 20:45 Room Air
[2025-08-28 10:53] LABS: Hematocrit (blood only) 33.9 % (42.0-52.0); Hemoglobin 10.9 g/dL (14.0-18.0); Mean Corpuscular Hemoglobin 29.0 pg (25.0-34.0); Mean Corpuscular Volume 90.2 fL (80.0-100.0); Platelet Count 225 K/uL (130-400); RDW Standard Deviation 47.8 fL (36.4-46.3); Red Blood Count 3.76 M/uL (4.70-6.10); White Blood Count 8.37 K/ul (4.8-10.8)
[2025-08-28 11:12] LABS: Alanine Aminotransferase 22.0 U/L (7-52); Albumin Globulin Ratio 0.9 (0.9-2); Albumin Level 3.1 gm/dl (3.4-5.0); Alkaline Phosphatase 47.0 U/L (34-104); Anion Gap 5.0 (3-11); Bilirubin,Total 0.4 mg/dl (0.2-1.0); Blood Urea Nitrogen 28.0 mg/dl (6-23); Calcium 9.0 mg/dl (8.6-10.3); Carbon Dioxide 27.0 mmol/L (21-32); Chloride 105.0 mmol/L (98-107); Creatinine Clr Calc Pharmacy 51.1 ml/min; Globulin 3.6 gm/dl (2.5-4.0); Glucose 195.0 mg/dl (70-99(Fasting)); Potassium 4.3 mmol/L (3.5-5.1); Sodium 137.0 mmol/L (136-145); Total Protein 6.7 gm/dl (6.0-8.3)
--- NOTE | 2025-08-28 14:00 | Hospitalist Progress Note ---
Date of Service August 28, 2025 Assessment & Plan (1) Severe sepsis with acute organ dysfunction: Plan: Resolved (2) Aspergillus pneumonia: (3) Acute hypoxic respiratory failure: Plan: Resolved (4) Acute metabolic encephalopathy: Plan: Resolved (5) Demand ischemia: (6) On prednisone therapy: (7) COPD with emphysema: (8) Permanent atrial fibrillation: (9) Diabetes mellitus type 2, insulin dependent: (10) Acute kidney injury: (11) Polymyalgia rheumatica: Plan Patient presented with sepsis due to aspergillosis pneumonia. Patient responding well to voriconazole, may be having some slight side effect of intermittent, nondistressing hallucinations. Communication with infectious disease, recommending voriconazole for 6 to 12 weeks. Agrees with discontinuation of antibiotics as ordered over the weekend, recommending local infectious disease follow-up Reviewed hematology consultation, not recommending IVIG for the mildly decreased IgM Reviewed pulmonology progress note, agree with additional Lasix today, Therapy to re-eval, initially recommending rehab. Planning peer to peer to evaluate for possible inpatient rehab, denied inpatient rehab, approved skilled rehab Continue to monitor glucose and cover with insulin Blood pressure fluctuating intermittently elevated other times controlled, at this time we will continue to monitor without any significant adjustments in his medications at this time. Updated son via phone and understands we will pursue correction, however does if he does not qualify we will set up home health. Admission and Anticipated Discharge Date Admission Date: August 24, 2025 Subjective Patient steadily feeling better. States that had a video visit with infectious disease. Reportedly they mention that his antifungal could cause some hallucinations. He says that he occasionally feels as though somebody is standing next to him or see somebody standing next to him that is not there. Otherwise breathing is much improved. Denies any chest pain. Physical Exam Physical Exam: Constitutional: Alert, nontoxic HEENT: Mucous membranes moist. Lungs: Decreased breath sounds, improved aeration, rhonchi improved CV: S1-S2, regular Abdomen: Soft, nontender, nondistended Extremities: Some ankle edema Neuro: No focal deficits Psych: Cooperative, normal mood Results & Data Results & Data Vital Signs (Past 12 Hours) Vital Signs Temp Pulse Resp BP Pulse Ox O2 Del Method 08/28/25 08:00 36.3 C L 70 20 187/93 H 98 Room Air 11/17/25 07:15 Room Air Diagnostic Findings Reviewed imaging, laboratory and diagnostic studies. Pertinent findings as below. WBCs 8.3 Hemoglobin 10.9 Electrolytes stable Creatinine 1.17 LFTs remain within normal range Glucose significantly improved
[2025-08-29] MEDS: CARBOHYDRATES FOR HYPOGLYCEMIA PO PRN (00:55)
[2025-08-29 07:32] VITALS: RESP 15; TEMP 97.9; O2SAT 94
[2025-08-29 07:40] LABS: Creatinine Clr Calc Pharmacy 50.7 ml/min
[2025-08-29] MEDS: METOPROLOL TARTRATE 100 MG TAB PO SCH (08:20)
--- NOTE | 2025-08-29 09:00 | Pulmonology Progress Note ---
Date of Service August 29, 2025 Assessment & Plan (1) Aspergillus pneumonia: (2) COPD with emphysema: (3) Abnormal CT scan, chest: (4) Acute hypoxic respiratory failure: (5) Pulmonary cavitary lesion: (6) Hypoxia: (7) Ex-smoker: (8) On prednisone therapy: (9) Invasive aspergillosis: Plan CT chest 08/24/2025 personally reviewed: Centrilobular and paraseptal emphysema appreciated bilaterally Interlobular thickening appreciated Cavitary lesion in the right lower lobe where the pulmonary mass was Minimal bilateral pleural effusion Mild right hilar and subcarinal lymphadenopathy 2D echo 02/13/2025: EF 65-70%, moderate concentric LVH, RV hyperdynamic, no pulmonary hypertension --Acute hypoxic respiratory failure secondary to invasive Aspergillus pneumonia right lower lobe opacity now with cavitary lesion 3.2 cm x 5.5 cm [id number] smoking history Aspergillus antigen from BAL > 3.750 In a patient who is on chronic 5 mg prednisone BNP 323 s/p robotic bronchoscopy 08/23/2025: Showed mucous plugging with pus drainage. BAL showing Aspergillus Nasal MRSA negative Absolute eosinophil count 180 on 07/02/2025 CT chest 02/11/2025 personally reviewed: Centrilobular and paraseptal emphysema appreciated bilaterally Right lower lobe 3.2 cm x 5.5 cm dense opacity No significant mediastinal lymphadenopathy --COPD with emphysema Gold A [id number] smoking history, quit in his 40s Good functional status Okay to monitor the patient off maintenance inhalers right now NIOX 07/26/2025: 36, intermediate Spirometry 07/26/2025 personally reviewed: No obstructive lung dysfunction FVC 3.19 L 80%, FEV1 2.49 L 88%, FEV1/FVC 78% --Ex-smoker [id number] smoking history Quit in his early 40s Encouraged to continue abstinence from smoking --History of A-fib Currently on Eliquis -- Polymyalgia rheumatica with chronic steroid use On 5 mg twice daily of prednisone on a daily basis Admission and Anticipated Discharge Date Admission Date: August 24, 2025 Supervising Physician Co-Signing Physician Notes I saw and evaluated the patient with TATIANA Rowe, and agree with findings and plan as documented in the note. Patient seen and examined at bedside. No acute distress, no obvious events overnight Overall he still is feeling much better Plan is for him to go home today Denies any chest pain No nausea vomiting Has been diuresing well Saturating well on room air. Constitutional: No acute distress HEENT: EOMI, PERRLA Respiratory system: Decreased air entry bilaterally, no wheeze, rhonchi, positive crackles bilaterally lower lobes CVS: S1-S2 positive, no murmurs or gallops Abdomen: Soft, nontender, nondistended, positive bowel sounds x4, obese Extremities: +2 pulses bilaterally radialis/ dorsalis pedis, no cyanosis, no edema Neuro: Awake alert oriented x3 Psych: Normal mood and affect G/U: No [place]o Plan: In/out: +8.3 L since coming to the hospital though maybe inaccurate due to patient voiding/incontinence. Patient most likely had abscess in the right lower lobe which I drained through bronchoscopy on 08/23/2025 When it comes to the CT of the chest showing cavitary lesion, I think the patient already had necrosis significant within that area and cavity was already forming it is just that because I removed the pus from the cavity it is showing up on the latest CAT scan of the chest CT abdomen pelvis from 08/26/2025 shows bilateral pleural effusion. Patient offered diuresis on but refused due to incontinence and urgency episodes. Patient understands that if his breathing worsens he will need to reconsider diuretics. Continue with antifungals (voriconazole) for at least 8 weeks for invasive aspergillosis, will need monitoring of LFTs monthly while on voriconazole Repeat CT chest in 6-8 weeks Infectious disease on board Follow-up RAST panel, IgE Follow up with me as an outpatient Please note the above document was generated using voice recognition software. It may contain grammatical, syntax or spelling errors.Any formal questions or concerns about the content, text or information contained within the body of this dictation should be directly addressed to the provider for clarification. Subjective "I feel great this morning." Patient denies SOB and chest pain. Endorses minimal cough which is nonproductive. Patient on room air with SpO2 100%. Plan for discharge to [facility] today. Review of Systems 2 Review of Systems: All systems reviewed & are unremarkable except as noted in HPI & below Physical Exam 2 Physical Exam: VITALS: Reviewed. WEIGHT/BMI reviewed. GEN: Pleasant, well-developed, NAD. PSYCH: Good Judgment. AOx3. Normal memory, mood, and affect. HEENT -Head: NC/AT; -Eyes: PERRL, EOMI. No discharge or redn ess; -Ears: External ears are normal. -Nose: Normal nares. NECK: Supple, with no masses. CV: RRR, no m/r/g. LUNGS: CTAB, no w/r/c. ABD: N/A : N/A SKIN: Warm, well perfused. No skin rashes or abnormal lesions. MSK: No deformities, Normal gait. EXT: No clubbing, cyanosis, or edema. NEURO: Normal muscle strength and tone. No focal deficits. Results & Data Results & Data Vital Signs (Past 12 Hours) Vital Signs Temp Pulse Pulse Resp BP Pulse Ox O2 Del Method 08/29/25 07:31 36.6 C 91 H 15 153/91 H 94 Room Air 08/28/25 21:46 36.8 C 100 H 18 148/76 H 96 Room Air 08/28/25 21:00 Room Air Laboratory Results 08/28/25 10:34 08/29/25 06:49 Abnormal Lab Results 08/28/25 08/28/25 08/28/25 10:34 11:38 16:40 WBC 8.37 RBC 3.76 L Hgb 10.9 L Hct 33.9 L MCV 90.2 MCH 29.0 MCHC 32.2 RDW Std Deviation 47.8 H RDW Coeff of Roverto 14.6 H Plt Count 225 MPV 11.2 Sodium 137 Potassium 4.3 Chloride 105 Carbon Dioxide 27 Anion Gap 5 BUN 28 H Creatinine 1.17 Est Cr Clr Drug Dosing 51.1 eGFR 62.63 BUN/Creatinine Ratio 23.9 H Glucose 195 H POC Glucose 138 H 121 H Calcium 9.0 Total Bilirubin 0.4 AST 20 ALT 22 Alkaline Phosphatase 47 Total Protein 6.7 Albumin 3.1 L Globulin 3.6 Albumin/Globulin Ratio 0.9 08/28/25 08/29/25 08/29/25 20:54 00:55 01:11 WBC RBC Hgb Hct MCV MCH MCHC RDW Std Deviation RDW Coeff of Roverto Plt Count MPV Sodium Potassium Chloride Carbon Dioxide Anion Gap BUN Creatinine Est Cr Clr Drug Dosing eGFR BUN/Creatinine Ratio Glucose POC Glucose 174 H 55 L* 66 L* Calcium Total Bilirubin AST ALT Alkaline Phosphatase Total Protein Albumin Globulin Albumin/Globulin Ratio 08/29/25 08/29/25 08/29/25 01:26 06:49 07:47 WBC RBC Hgb Hct MCV MCH MCHC RDW Std Deviation RDW Coeff of Roverto Plt Count MPV Sodium Potassium Chloride Carbon Dioxide Anion Gap BUN Creatinine 1.18 Est Cr Clr Drug Dosing 50.7 eGFR 61.99 BUN/Creatinine Ratio Glucose POC Glucose 115 H 76 Calcium Total Bilirubin AST ALT Alkaline Phosphatase Total Protein Albumin Globulin Albumin/Globulin Ratio Diagnostic Findings Chest X-Ray 08/24/25 07:33 XR chest 1V portable CLINICAL HISTORY: Hypoxia. COMPARISON STUDY: Chest CT February 11, 2025. Chest radiograph August 23, 2025. PET/CT August 10, 2025. FINDINGS: The patient is mildly rotated. Asymmetric right hilar enlargement is noted. This is related to the right lower lobe mass-like opacity shown on PET/CT of August 10, 2025. Asymmetric interstitial thickening within the right lung. No pneumothorax or pleural effusion is present. Cardiomediastinal silhouette is stable IMPRESSION: 1. Cardiomegaly with pulmonary vascular congestion. 2. Asymmetric right hilar enlargement related to the right lower lobe mass-like opacity on prior PET/CT. 3. Mild asymmetric interstitial thickening within the right lung. This could represent asymmetric pulmonary edema or an infectious process. ACT 112: Negative or not required by law. Electronically signed by: Alberto Marrero M.D. 08/24/2025 8:[address] 08/24/25 07:34 CT SCAN OF THE BRAIN WITHOUT IV CONTRAST CLINICAL HISTORY: Vomiting. Altered mental status. COMPARISON STUDY: Head CT July 02, 2025. TECHNIQUE: Unenhanced axial CT scan of the brain was performed from the vertex to the skull base. A dose lowering technique was utilized adhering to the principles of ALARA. CT DOSE: 3279.12 mGy.cm FINDINGS: Brain parenchyma: No acute intracranial hemorrhage, midline shift or mass effect is present. Carter-white matter differentiation is preserved. There are no extra- axial fluid collections. There are no findings to suggest acute dural sinus thrombosis or acute territorial infarct. White matter hypodensities are unchanged and favor small vessel disease. 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 A small left parietal infarct is also unchanged. Ventricles, sulci, cisterns: There is no hydrocephalus. The basal cisterns are patent. Calvarium: Unremarkable. Sinuses and mastoids: A mucous retention cyst within the left maxillary sinus is again noted. The mastoid air cells are well pneumatized. Orbits: The bony orbits are grossly intact. IMPRESSION: No acute intracranial findings. No change in appearance of the brain. ACT 112: Negative or not required by law. Electronically signed by: Alberto Marrero M.D. 08/24/2025 9:29 AM Abdomen/Pelvis CT 08/24/25 08:16 CT OF THE ABDOMEN AND PELVIS WITHOUT CONTRAST CLINICAL HISTORY: Emesis, hypoxia, acute kidney injury. COMPARISON STUDY: CT of the abdomen and pelvis July 02, 2025 and PET/CT August 10, 2025. TECHNIQUE: Axial images of the abdomen and pelvis were obtained without IV contrast. Images were reviewed in the axial, sagittal, and coronal planes. Automated exposure control was utilized for the study. A dose lowering technique was utilized adhering to the principles of ALARA. FINDINGS: Please note that the chest CT will be reported separately. Right lower lobe airspace opacity and trace bilateral pleural effusions are better depicted on that exam. Moderate bilateral renal cortical thinning is noted. Symmetric bilateral perinephric stranding is unchanged from prior exams. There are no urinary calculi. There is no hydronephrosis. Evaluation of the remainder of the abdomen and pelvis is suboptimal on this unenhanced exam. There is suspected mild hepatic steatosis. No biliary or pancreatic ductal dilatation is present. Spleen, adrenal glands and pancreas are unremarkable. There is no evidence for a bowel obstruction. There is a moderate to large amount stool within the left colon and rectum. No lymphadenopathy is present. There are no fluid collections. The appendix is normal. No acute fractures within the lumbar spine, pelvis or hips. IMPRESSION: 1. No urinary calculi or hydronephrosis. Moderate bilateral renal cortical thinning. 2. No evidence for a bowel obstruction. Moderate to large amount of stool within the colon and rectum. 3. Right lower lobe airspace opacity suspicious for pneumonia or aspiration pneumonitis better depicted on the chest CT which will be reported separately. Trace bilateral pleural effusions. ACT 112: Negative or not required by law. Electronically signed by: Alberto Marrero M.D. 08/24/2025 9:[address] 08/24/25 08:16 CT chest diagnostic wo con CLINICAL HISTORY: 79 years-old Male with emesis, hypoxia, soy. Acute hypoxia TECHNIQUE: Multiaxial CT images of the chest were performed without contrast. A dose lowering technique was utilized adhering to the principles of ALARA. COMPARISON: CT abdomen and pelvis of same day, PET CT 08/10/2025 FINDINGS: Subcentimeter hypodense thyroid nodules are present. There is progression of the previously noted mediastinal lymphadenopathy. There is an index right paratracheal lymph node on image 69 series 10 measuring 1.6 x 1.3 cm, previously 1.6 x 1.1 cm. 10 mm subcarinal lymph node, previously 8 mm. Heart is enlarged with moderate coronary artery calcifications. No thoracic aortic aneurysm or pericardial effusion. There are trace pleural effusions. There is progressive consolidation within the right lung which involves the posterior segment right upper lobe and superior segment right lower lobe. Interval development of a few areas of central cavitation within the superior segment right lower lobe. Probable postobstructive changes result in additional consolidation within the basal segments of the right lower lobe with mucus plugging and groundglass densities. Mild pulmonary emphysema with areas of intralobular septal thickening. Mild subsegmental opacities of the basal left lower lobe. Tracheobronchial secretions are noted. Probable hepatic steatosis. No acute upper abdominal abnormality. No acute fracture or destructive bone lesion. IMPRESSION: 1. Progressively worsened consolidation throughout the right lung, now with areas of central cavitation suggestive of worsening pneumonia. Follow-up is needed. 2. Cardiomegaly with probable mild interstitial pulmonary edema and trace pleural effusions. 3. Mediastinal lymphadenopathy has worsened from the 08/10/2025 PET/CT, likely reactive. ACT 112: Negative or not required by law. Electronically signed by: Audi Griffiths M.D. 08/24/2025 9:[address] 08/26/25 01:41 EXAM: CT cervical spine wo con CLINICAL HISTORY: fall TECHNIQUE: Computed tomography of the cervical spine performed without intravenous contrast. Contiguous axial images were obtained from the skull base to T2, with sagittal and coronal reformatted images reconstructed from the axial data. CT scan was performed according to ALARA (as low as reasonable achievable). COMPARISON: None. FINDINGS: Loss of cervical lordosis - suggest possibility of muscle spasm/positional. Degenerative changes involving cervical spine in the form of multilevel marginal osteophytes, disc space reduction and facetal arthrosis. Cervical vertebral bodies are normal in height and alignment, with no evidence of fracture or subluxation. Lateral masses of C1 are symmetrical, and the dens is intact. Prevertebral soft tissues are not widened. The remaining suprahyoid and infrahyoid soft tissues in the neck are unremarkable. Posterior uncovertebral arthrosis is noted at C5-C6 and C6-C7 level which indenting ventral thecal sac and causes bilateral neuroforaminal narrowing. Thyroid gland appears unremarkable. Possible bilateral pleural effusion. Ill-defined ground-glass opacities noted involving the right upper lobe. Paraseptal emphysematous changes in bilateral lung apices. IMPRESSION: No acute fracture or subluxation in the cervical spine. Cervical spondylosis. Possible bilateral pleural effusion. Ill-defined ground-glass opacities noted involving the right upper lobe. Electronically signed by Russel Mitchell 08-26-2025 02:[address] 08/26/25 01:41 EXAM: CT head/brain wo con CLINICAL HISTORY: head trauma, noac TECHNIQUE: Multiple axial images are obtained from the skull base to the vertex without contrast. CT scan was performed according to ALARA (as low as reasonably achievable). COMPARISON: 08:09:43 SUBSTATION OPERATOR TRANSFORMING. FINDINGS: There is cerebral atrophy. Focal encephalomalacia is noted involving left parietal lobe - sequelae of prior insult.-stable. No evidence of space occupying lesion, hemorrhage, edema, mass effect, midline shift, extra axial collection, or hydrocephalus is noted. Basal cisterns are symmetric and normal in size and configuration. There are scattered periventricular hypodensities as can be seen with chronic microvascular ischemic changes. The carter-white matter differentiation is preserved. Visualized paranasal sinuses and mastoid air cells are well aerated. Orbital contents are within normal limits. Bony structures are intact. IMPRESSION: 1. No evidence of acute intracranial abnormality is demonstrated. 2. Chronic microvascular ischemic changes.-stable. 3. Cerebral atrophy.-stable. Electronically signed by Russel Mitchell 08-26-2025 02:40 AM Abdomen/Pelvis CT 08/26/25 04:13 EXAM: CT abd pelvis wo con CLINICAL HISTORY: pain, fall, noac TECHNIQUE: Contiguous axial images were obtained from the level of the diaphragm to the pubic symphysis without intravenous or oral contrast. Coronal and sagittal reconstructions were likewise performed and indicated to increase the sensitivity for detecting clinically relevant pathology. CT scan was performed according to ALARA (as low as reasonably achievable). COMPARISON: 07/02/2025 10:24:45 SUBSTATION OPERATOR TRANSFORMING FINDINGS: Mild bilateral pleural effusion with basal subsegmental collapse of both lower lobes are seen. Evaluation of the abdominal and pelvic visceral organs is limited without intravenous contrast. The unenhanced liver, spleen, pancreas, and adrenal glands are grossly unremarkable. The gallbladder is present. The kidneys are normal in size and attenuation without obvious calcification. There is no hydronephrosis. Moderate bilateral perinephric fat stranding The ureters are normal in caliber. No adenopathy or fluid collections are seen. No evidence of focal or diffuse bowel wall thickening or evidence of bowel obstruction is seen. No imaging evidence of appendicitis. The aorta is normal in caliber. The urinary bladder is normal in contour. Pelvic viscera are grossly unremarkable. No aggressive appearing osseous lesions are identified. Diffuse atherosclerotic calcification is noted involving aorta iliac arteries. IMPRESSION: Mild bilateral pleural effusion with basal subsegmental collapse of both lower lobes are seen. -increased Lobe right lower lobar consolidation is resolved. Moderate bilateral perinephric fat stranding-stable. No other new interval abnormality since prior study. Electronically signed by Russel Mitchell 08-26-2025 05:40 AM PG Care Time/CCT Total # of Minutes Spent Total Time Spent with Patient: Total time spent is greater than 50% in coordination of care (as documented) at patient's floor/unit and/or counseling patient: Coding Level of Care Code 51096 SUB INP/OBS CARE 2/35MIN Diagnoses Aspergillus pneumonia B44.9 COPD with emphysema J43.[address] scan, chest R93.89 Acute hypoxic respiratory failure J96.01 Pulmonary cavitary lesion J98.4 Hypoxia R09.02 Ex-smoker Z87.891 On prednisone therapy Z79.52 Invasive aspergillosis B44.9
[2025-08-29 10:07] VITALS: BP 168/88; PULSE 100
--- NOTE | 2025-08-29 11:09 | Discharge Summary ---
Discharge Summary Date of Service August 29, 2025 Principal Dx & Hospital Course #1 = Principal Diagnosis (1) Severe sepsis with acute organ dysfunction: Resolved (2) Aspergillus pneumonia: (3) Acute hypoxic respiratory failure: Resolved (4) Acute metabolic encephalopathy: Resolved (5) Demand ischemia: (6) On prednisone therapy: (7) COPD with emphysema: (8) Permanent atrial fibrillation: (9) Diabetes mellitus type 2, insulin dependent: (10) Acute kidney injury: (11) Polymyalgia rheumatica: Plan Patient 79-year-old gentleman who presented to the ED with sepsis picture fever, hypotension and some encephalopathy. Patient just had a bronchoscopy the day before to evaluate for a pulmonary mass. At that time it looked significantly infectious. Patient was admitted to the hospital. He was initially placed on broad-spectrum antibiotics. Within a few hours of his admission where he able to get results of his outpatient bronchoscopy cultures that were growing Aspergillus. He was started on antifungal voriconazole and infectious disease consultation was obtained. Pulmonary consultation was obtained as well due to his recent procedure. He did need aggressive fluid resuscitation to maintain adequate blood pressure support initially. Patient responded to the antifungal. All other cultures obtained did not grow any bacterial infection. Antibiotics were discontinued after cultures were resulted. He continued on the voriconazole. He was transition to oral voriconazole. He overall tolerated this well. And his overall condition steadily improved. He was quite weak and deconditioned from his infection. Was seen by therapies who recommended rehab. Case management was involved in his care. They help coordinate additional rehabilitation at [facility]. During his hospitalization his sugars were monitored and managed with insulin. His encephalopathy resolved. He was continued on his chronic medications for his atrial fibrillation and anticoagulation. His acute kidney injury resolved with treatment of the infection. On the day of discharge his vital signs are stable. He be discharged to [facility] he will need to remain on the voriconazole for at least 6 to 12 weeks. It is recommended that he have outpatient infectious disease follow-up as well as follow-up with pulmonary. Notes For Next Care Provider Follow-up with infectious disease Follow-up with pulmonary Monitor BMP and liver functions weekly while on voriconazole Medication Changes From Visit Voriconazole for 6 to 12 weeks Long-acting insulin dose increased Metoprolol increased Admission HPI Per Admitting Provider 79 year old male with PMH chronic atrial fibrillation anticoagulated on Coumadin, DM type II, HTN, PMR on chronic prednisone, COPD, and other problems listed below who presents to the ED for evaluation of fever, weakness, and vomiting. Patient recently admitted to [facility] 07/02 through 07/04 for suspected aspiration pneumonia. Patient had CT chest done as an outpatient on 07/17 that showed a right lower lobe mass. Patient followed up with pulmonary on 07/26 and was placed on a 10-day course of cefpodoxime and then had a follow-up PET scan which did not show much improvement. Therefore patient underwent bronchoscopy on 08/23/[address] Ramsey. Yesterday evening, patient developed chills and generalized weakness. Throughout the night, he developed a fever and had vomiting. Patient then presented to the ED for further evaluation. He denies cough and sputum production. No chest pain. Denies lightheadedness and d izziness. No abdominal pain. Denies urinary symptoms. In the ED, patient was hypoxic 87%, currently requiring 5 L OxyMask. Labs show WBC 14K, creatinine 1.6, lactate 1.9, procalcitonin 1.8. CXR suggesting right sided pneumonia. Patient was given IVF and IV Zosyn. Admission Exam Per Admitting Provider See H&P Discharge Exam Constitutional: Alert, nontoxic, no acute distress HEENT: Mucous membranes moist. Lungs: Decreased breath sounds, rhonchi significantly improved, no wheezes CV: S1-S2, irregular Abdomen: Soft, nontender, nondistended Extremities: Trace ankle edema Neuro: No focal deficits Psych: Cooperative, normal mood Updated Medication List Medication Instructions Recorded Confirmed Type alendronate 70 mg tablet (Fosamax) 70 mg PO WK 12/25/21 08/24/25 History atorvastatin 20 mg tablet (Lipitor) 20 mg PO QPM 12/25/21 08/24/25 History duloxetine 20 mg capsule,delayed 20 mg PO QPM 12/25/21 08/24/25 History release prednisone 5 mg tablet 5 mg PO BID 12/25/21 08/24/25 History lancets 33 gauge (OneTouch Delica 07/26/25 07/26/25 History Plus Lancet) tirzepatide 2.5 mg/0.5 mL 2.5 mg subcut WK 07/26/25 08/24/25 History subcutaneous pen injector (Ismael) B12 + Vitamin D 2 dose PO QPM 08/14/25 08/24/25 History apixaban 2.5 mg tablet (Eliquis) 2.5 mg PO BID 30 days #60 tabs 08/24/25 Rx acetaminophen 325 mg tablet 650 mg (2 x 325 mg) PO Q4H PRN 08/29/25 Rx pain/ fever #100 tabs insulin degludec 200 unit/mL (3 34 unit (0.17 mL) subcut QAM #0 mL 08/29/25 08/24/25 Rx mL) subcutaneous pen (Tresiba FlexTouch U-200 insulin) metoprolol tartrate 100 mg tablet 100 mg PO BID 30 days #60 tabs 08/29/25 Rx voriconazole 200 mg tablet 200 mg PO BID 70 days #140 tabs 08/29/25 Rx Hospital Stay Data Consultations 08/24/25 08:29 ED Decision to Admit Stat 08/24/25 09:25 Consult Pulmonology Routine 08/24/25 09:59 Consult Infectious Diseases Stat 08/27/25 09:00 Consult Hematology Routine Diagnostic Imagining Performed 08/24/25 07:34 CT head/brain wo con Stat 08/24/25 08:16 CT abd pelvis wo con Stat CT chest diagnostic wo con Stat 08/26/25 01:41 CT cervical spine wo con Stat CT head/brain wo con Stat 08/26/25 04:13 CT Abd and Pelvis [CT abd pelvis wo con] Stat Reviewed imaging, laboratory and diagnostic studies. Pertinent findings as below. WBCs 8.3 Hemoglobin 10.9 Electrolytes within normal range Creatinine 1.18 Hemoglobin A1c 11.5 Blood cultures no growth to date Bronchoscopy/BAL a culture is growing Aspergillus Voriconazole trough pending Pending Results Patient Have Any Pending Studies at Discharge: Yes Discharge Instructions Given to Patient (Per Discharging Provider) You will need to be on voriconazole for 6 to 12 weeks Follow-up with pulmonary Follow-up with infectious disease Total Time Total Time Spent Total Time Spent (In Minutes): 39
[2025-08-30 17:41] LABS: Aspergillus Antigen, Serum Not Detected (Not Detected)
[2025-08-30 18:47] LABS: Cockroach IgE Ab <0.10 kU/L; Cottonwood Class 0; Mouse Urine Protein Class 0; Mouse Urine Protein IgE <0.10 kU/L; Mugwort (W6) IgE <0.10 kU/L; Oak-White Class 0; Oak-White IgE <0.10 kU/L; Sycamore Class 0; Sycamore IgE <0.10 kU/L
== END 2025-08-29 11:05 | DRG 871 ==
LOC: ED 07:23 → 2N 08:41 → 3N 08-26 21:11

== ENCOUNTER 2025-09-25 18:20 | Inpatient (IN) ==
[2025-09-25 19:01] LABS: Hematocrit (blood only) 37.2 % (42.0-52.0); Hemoglobin 12.2 g/dL (14.0-18.0); Immature Granulocytes # (auto) 0.12 K/uL (0.01-0.20); Immature Granulocytes % (auto) 0.8 %; Mean Corpuscular Hemoglobin 29.5 pg (25.0-34.0); Mean Corpuscular Volume 90.1 fL (80.0-100.0); Platelet Count 175 K/uL (130-400); RDW Standard Deviation 48.6 fL (36.4-46.3); Red Blood Count 4.13 M/uL (4.70-6.10); White Blood Count 15.14 K/ul (4.8-10.8)
[2025-09-25] MEDS: SODIUM CHLORIDE 0.9% 1,000 ML IV ONE (19:03)
[2025-09-25 19:23] LABS: Appearance Urine Clear (Clear); Bacteria Urine Automated None Seen (None Seen); Cast Urine Automated 0-2 /lpf (0-2); Epithelial Cell Urine Auto 0-2 /hpf (0-2); Glucose Urine UA 3+ (Negative); RBC Urine Automated 0-2 /hpf (0-2); WBC Urine Automated 0-5 /hpf (0-5)
[2025-09-25 19:24] LABS: Alanine Aminotransferase 12.0 U/L (7-52); Albumin Globulin Ratio 0.9 (0.9-2); Albumin Level 3.5 gm/dl (3.4-5.0); Alkaline Phosphatase 59.0 U/L (34-104); Anion Gap 11.0 (3-11); Bilirubin,Total 0.5 mg/dl (0.2-1.0); Blood Urea Nitrogen 37.0 mg/dl (6-23); Calcium 9.3 mg/dl (8.6-10.3); Carbon Dioxide 21.0 mmol/L (21-32); Chloride 97.0 mmol/L (98-107); Creatinine Clr Calc Pharmacy 40.1 ml/min; Globulin 3.8 gm/dl (2.5-4.0); Glucose 487.0 mg/dl (70-99(Fasting)); Magnesium 1.9 mg/dl (1.7-2.4); Potassium 4.8 mmol/L (3.5-5.1); Sodium 129.0 mmol/L (136-145); Total Protein 7.3 gm/dl (6.0-8.3)
--- NOTE | 2025-09-25 19:30 | Emergency Department Note ---
Impression & Plan Lower extremity cellulitis, Hyperglycemia due to type 2 diabetes mellitus, CKD (chronic kidney disease) ED Provider Note NAME: AROLDO SILVERMAN AGE: 79 SEX: M : 1945 ARRIVES VIA: Ambulance INFORMANT: Patient ED PROVIDER(S): Aric Mendez MD CHIEF COMPLAINT: Left foot cellulitis, referred PLAN: Disposition: Admit MEDICAL DECISION MAKING: The patient a pleasant 79-year-old gentleman with a past medical history of IDDM 2, hypertension, hyperlipidemia, atrial fibrillation on Eliquis who presents to Emergency Department via EMS referred by his PCP office for left foot infection/cellulitis. Patient had ultrasound of the left lower extremity that was negative and x-ray which he is awaiting results. Patient reports his blood sugars have been elevated in the 500s. Patient denies nausea or vomiting. Patient denies fevers. Of note, the patient did arrive to emergency department during time of high volume, acuity and prolonged emergency department waiting times. Critical pathways initiated from triage. On my evaluation patient is in no acute distress, afebrile heart in the 110s and blood pressure 150s/80s and vital signs otherwise stable. Patient appears clinically dry. There is erythema warmth and tenderness of the left lower leg and foot. EKG demonstrates atrial fibrillation without overt acute ischemia. WBC 15K with neutrophilia but no left shift. H/H similar to prior. Platelets within normal limits. Chemistry without metabolic acidosis. Creatinine 1.49, similar to prior value. Initial glucose 47 with pseudohyponatremia of 129. However improving to 300s following IV fluid hydration. Serum osmolality 306 consistent with component of dehydration in setting of hyperglycemia. Uric acid 2.6, within normal limits. LFTs unremarkable. Procalcitonin 0.5, mildly elevated. TSH within normal limits. UA without evidence of infection. The patient and his agree with plan for admission for further management. Treatment initiated with IV Zosyn and vancomycin. Case was discussed with Dr. Cifuentes, [facility] hospitalist who will evaluate the patient for admission. Further management per admitting team. Triage Nursing notes reviewed and agree them. Prior/external medical records reviewed Vital Signs: reviewed Differential diagnosis: Cellulitis, abscess, MRSA infection, DVT, necrotizing fasciitis, dermatitis, drug eruption, allergic reaction, as well as other pathologies. ER treatment provided: See below. Diagnostics interpreted by me: ECG: Atrial fibrillation, 112 bpm, premature ventricular complexes, nonspecific ST abnormality, no overt ST elevation or depression, QTc 455, QRS 88. Cardiac Monitoring: An order for continuous cardiac monitoring was placed and demonstrated atrial fibrillation, 112 bpm, PVCs. Laboratory studies: See below Imaging studies: See below Consultation(s): Case was discussed with Dr. Cifuentes, [facility] hospitalist who will evaluate the patient for admission. HPI: Per MDM. ROS: See above HPI for pertinent positives & negatives. A total of 10 systems reviewed and were otherwise negative. VITALS:See Below PHYSICAL EXAMINATION: GENERAL: Awake, alert, in no distress HENT: Normocephalic, atraumatic. Oropharynx with dry mucous membranes and otherwise unremarkable. EYES: Normal conjunctiva. Sclera non-icteric. NECK: Supple. No nuchal rigidity. FROM. No JVD. RESPIRATORY: Clear to auscultation. CARDIAC: Tachycardic rate, irregular rhythm. Extremities warm and well perfused. Pulses equal. ABDOMEN: Soft, non-distended. No tenderness to palpation. No rebound or guarding. MUSCULOSKELETAL: Chest examination reveals no tenderness. The back is symmetrical on inspection without obvious abnormality. There is no CVA tenderness to palpation. No joint edema. LOWER EXTREMITIES: There is erythema warmth and tenderness of the left lower leg and foot. NEURO: Normal sensorium. No sensory or motor deficits noted. SKIN: No rash or jaundice noted. Aric Mendez MD Past Med/Surg History Problem List (Updated 09/29/25 @ 18:37 by Aric Mendez MD) CKD (chronic kidney disease) (Acute) Hyperglycemia due to type 2 diabetes mellitus (Acute) Cellulitis of foot associated with diabetes mellitus Lower extremity cellulitis (Acute) Invasive aspergillosis Decreased immunoglobulin M Hemoptysis Diabetes mellitus type 2, insulin dependent Severe sepsis with acute organ dysfunction Pulmonary cavitary lesion Elevated troponin Hypoxia (Acute) Aspergillus pneumonia (Acute) Ex-smoker Pulmonary mass Chronic anticoagulation (Acute) Pseudohyponatremia (Acute) On prednisone therapy Syncope Abnormal CT scan, chest Generalized weakness (Acute) COPD with emphysema Pulmonary edema (Acute) Scrotal swelling Tight foreskin HTN, goal below 140/90 Steroid-induced osteoporosis Permanent atrial fibrillation Encounter for pre-operative examination Weakness (Acute) Medical History (Updated 09/29/25 @ 18:37 by Aric Mendez MD) Hx of non-ST elevation myocardial infarction (NSTEMI) 10/2024 [facility] admission: type II NSTEMI vs demand ischemia Bronchiectasis Pulmonary mass COPD (chronic obstructive pulmonary disease) emphysema History of pneumonia pt was tx for PNA based on 07/2025 chest imaging (per pulm, PNA vs mass) History of sepsis (10/2024) hospitalized [facility]. History of recent hospitalization pt has had multiple recent hospitalizations; most recent: [facility] 07/02-07/04/25: pt with vomiting 2/2 starting GLP1 and possible aspiration PNA; required 2L O2 NC for short time but weaned; D/C on Augmentin Osteoporosis Aspiration pneumonitis hx hospitalization [facility] 10/2024. Chronic steroid use for PMR Polymyalgia rheumatica takes prednisone BID to manage. Osteoarthritis Diabetes mellitus, type 2 On anticoagulant therapy coumadin for afib Hyperlipidemia Hypertension Atrial fibrillation Surgical History History of left cataract surgery History of right cataract surgery History of arthroscopy of left shoulder S/P left knee arthroscopy History of colonoscopy H/O eye surgery bilateral tear duct procedures to place a "drain" Family History Other No family history of adverse response to anesthesia Social History Smoking Status: Never smoker Tobacco Type: Cigarettes Age Started Using Tobacco: 12; Age Quit Using Tobacco: 38; packs per day: 2; Second Hand Exposure: No; Do You Dip or Chew Tobacco: No; Hx Alcohol Use: No Hx Substance Use: No Preferred Language: Swedish Communication Ability: Effective Bond Broker Required: No Beliefs That Will Affect Care: None marital status: Current Living Situation: Spouse Current Living Situation Comment: one story house with one cat Feels Safe at Home: Yes Assistive Devices: Cane and Walker Allergies Allergies Allergy/AdvReac Type Severity Reaction Status Date / Time oxycodone Allergy Intermediate WHEEZING, Verified 09/25/25 20:39 maybe trouble breathing Home Meds Home Medications Medication Instructions Recorded Confirmed alendronate 70 mg tablet (Fosamax) 70 mg PO WK 12/25/21 09/25/25 duloxetine 20 mg capsule,delayed 20 mg PO QPM 12/25/21 09/25/25 release prednisone 5 mg tablet 5 mg PO BID 12/25/21 09/25/25 lancets 33 gauge (OneTouch Delica 07/26/25 07/26/25 Plus Lancet) tirzepatide 2.5 mg/0.5 mL 2.5 mg subcut WK 07/26/25 09/25/25 subcutaneous pen injector (Mounteresaro) acetaminophen 500 mg tablet 500 - 1,000 mg PO Q6H PRN Pain 09/25/25 09/25/25 apixaban 2.5 mg tablet (Eliquis) 2.5 mg PO BID 09/25/25 09/25/25 cephalexin 500 mg capsule 500 mg PO TID 09/25/25 09/25/25 cholecalciferol (vitamin D3) 50 50 mcg PO DAILY 09/25/25 09/25/25 mcg (2,000 unit) capsule (Vitamin D3) cyanocobalamin (vitamin B-12) 500 500 mcg PO DAILY 09/25/25 09/25/25 mcg tablet (Vitamin B-12) folic acid 1 mg tablet 1 mg PO QAM 09/25/25 09/25/25 insulin aspart U-100 100 unit/mL 6 unit subcut AC 09/25/25 09/28/25 (3 mL) subcutaneous pen (Novolog FlexPen U-100 Insulin aspart) metoprolol tartrate 50 mg tablet 50 mg PO BID 09/25/25 09/25/25 rosuvastatin 20 mg tablet 20 mg PO QPM 09/25/25 09/25/25 tramadol 50 mg tablet 50 mg PO Q8H PRN Pain 09/25/25 09/25/25 Previous Rx's Medication Instructions Recorded insulin degludec 200 unit/mL (3 34 unit (0.17 mL) subcut QAM #0 mL 08/29/25 mL) subcutaneous pen (Tresiba FlexTouch U-200 insulin) voriconazole 200 mg tablet 200 mg PO BID 70 days #140 tabs 08/29/25 Results & Data (ED) Vital Signs Vital Signs - 24 hr 09/25/25 18:28 09/25/25 18:29 09/25/25 18:42 Temperature 36.7 C 36.7 C Temperature Source Oral Oral Pulse Rate 112 H 113 H Respiratory Rate 18 18 Respiratory Effort / Characteristics Non-Labored Non-Labored Blood Pressure 156/81 H Blood Pressure Mean 106 Pulse Oximetry 98 98 Oxygen Delivery Method Room Air Room Air Sepsis Recent Fever Within 48 Hours No Sepsis New/Unexplained Change in Mental Status No Sepsis Action Taken by Nursing No Action Required 09/25/25 19:05 09/25/25 19:58 Temperature Temperature Source Pulse Rate 182 H Respiratory Rate Respiratory Effort / Characteristics Blood Pressure Blood Pressure Mean Pulse Oximetry 94 Oxygen Delivery Method Room Air Sepsis Recent Fever Within 48 Hours Sepsis New/Unexplained Change in Mental Status Sepsis Action Taken by Nursing Laboratory Data Attestation: I reviewed the patient's lab results. 09/29/25 10:38 09/29/25 10:38 Lab Results 09/25/25 09/25/25 09/25/25 Range/Units 18:25 18:31 19:00 WBC 15.14 H (4.8-10.8) K/ul RBC 4.13 L (4.70-6.10) M/uL Hgb 12.2 L (14.0-18.0) g/dL Hct 37.2 L (42.0-52.0) % MCV 90.1 (80.0-100.0) fL MCH 29.5 (25.0-34.0) pg MCHC 32.8 (32.0-36.0) g/dL RDW Std Deviation 48.6 H (36.4-46.3) fL RDW Coeff of Roverto 14.9 H (11.5-14.5) % Plt Count 175 (130-400) K/uL MPV 11.8 (9.4-12.4) fL Immature Gran % (Auto) 0.8 % Neut % (Auto) 77.8 % Lymph % (Auto) 8.6 % Blount % (Auto) 12.4 % Eos % (Auto) 0.2 % Baso % (Auto) 0.2 % Neut # (Auto) 11.78 H (1.40-6.50) K/uL Lymph # (Auto) 1.30 (1.20-3.40) K/uL Blount # (Auto) 1.88 H (0.11-0.59) K/uL Eos # (Auto) 0.03 (0.00-0.50) K/uL Baso # (Auto) 0.03 (0.00-0.20) K/uL Immature Gran # (Auto) 0.12 (0.01-0.20) K/uL ESR 37 H (0-20) mm/hr PT 10.9 (9.0-12.0) Seconds INR 1.0 (0.9-1.1) Sodium 129 L (136-145) mmol/L Potassium 4.8 (3.5-5.1) mmol/L Chloride 97 L (98-107) mmol/L Carbon Dioxide 21 (21-32) mmol/L Anion Gap 11 (3-11) BUN 37 H (6-23) mg/dl Creatinine 1.49 H (0.6-1.4) mg/dl Est Cr Clr Drug Dosing 40.1 ml/min eGFR 46.86 BUN/Creatinine Ratio 24.8 H (10-20) Glucose 487 H* (70-99(Fasting)) mg/dl POC Glucose 527 H* (70-99) mg/dl Osmolality 306 H (280-300) mOsm/kg Lactate (0.4-2.0) mmol/L Uric Acid 2.6 (2.6-7.2) mg/dl Calcium 9.3 (8.6-10.3) mg/dl Magnesium 1.9 (1.7-2.4) mg/dl Total Bilirubin 0.5 (0.2-1.0) mg/dl AST 16 (13-39) U/L ALT 12 (7-52) U/L Alkaline Phosphatase 59 (34-104) U/L Total Protein 7.3 (6.0-8.3) gm/dl Albumin 3.5 (3.4-5.0) gm/dl Globulin 3.8 (2.5-4.0) gm/dl Albumin/Globulin Ratio 0.9 (0.9-2) Procalcitonin (0-0.5) ng/ml TSH 2.296 (0.300-4.500) uIu/ml Urine Color Yellow Urine Appearance Clear (Clear) Urine pH 6.0 (4.5-7.5) Ur Specific Blakeslee 1.030 (1.000-1.030) Urine Protein 1+ H (Negative) Urine Glucose (UA) 3+ H (Negative) Urine Ketones Negative (Negative) Urine Blood Trace H (Negative) Urine Nitrite Negative (Negative) Urine Bilirubin Negative (Negative) Urine Urobilinogen Negative (Negative) Ur Leukocyte Esterase Negative (Negative) Urine WBC (Auto) 0-5 (0-5) /hpf Urine RBC (Auto) 0-2 (0-2) /hpf U Hyaline Cast (Auto) 0-2 (0-2) /lpf U Epithel Cells (Auto) 0-2 (0-2) /hpf Urine Bacteria (Auto) None Seen (None Seen) Urine Comment 09/25/25 09/25/25 09/25/25 Range/Units 19:51 20:40 21:00 WBC (4.8-10.8) K/ul RBC (4.70-6.10) M/uL Hgb (14.0-18.0) g/dL Hct (42.0-52.0) % MCV (80.0-100.0) fL MCH (25.0-34.0) pg MCHC (32.0-36.0) g/dL RDW Std Deviation (36.4-46.3) fL RDW Coeff of Roverto (11.5-14.5) % Plt Count (130-400) K/uL MPV (9.4-12.4) fL Immature Gran % (Auto) % Neut % (Auto) % Lymph % (Auto) % Blount % (Auto) % Eos % (Auto) % Baso % (Auto) % Neut # (Auto) (1.40-6.50) K/uL Lymph # (Auto) (1.20-3.40) K/uL Blount # (Auto) (0.11-0.59) K/uL Eos # (Auto) (0.00-0.50) K/uL Baso # (Auto) (0.00-0.20) K/uL Immature Gran # (Auto) (0.01-0.20) K/uL ESR (0-20) mm/hr PT (9.0-12.0) Seconds INR (0.9-1.1) Sodium (136-145) mmol/L Potassium (3.5-5.1) mmol/L Chloride (98-107) mmol/L Carbon Dioxide (21-32) mmol/L Anion Gap (3-11) BUN (6-23) mg/dl Creatinine (0.6-1.4) mg/dl Est Cr Clr Drug Dosing ml/min eGFR BUN/Creatinine Ratio (10-20) Glucose (70-99(Fasting)) mg/dl POC Glucose 363 H* (70-99) mg/dl Osmolality (280-300) mOsm/kg Lactate 2.0 (0.4-2.0) mmol/L Uric Acid (2.6-7.2) mg/dl Calcium (8.6-10.3) mg/dl Magnesium (1.7-2.4) mg/dl Total Bilirubin (0.2-1.0) mg/dl AST (13-39) U/L ALT (7-52) U/L Alkaline Phosphatase (34-104) U/L Total Protein (6.0-8.3) gm/dl Albumin (3.4-5.0) gm/dl Globulin (2.5-4.0) gm/dl Albumin/Globulin Ratio (0.9-2) Procalcitonin 0.54 H (0-0.5) ng/ml TSH (0.300-4.500) uIu/ml Urine Color Urine Appearance (Clear) Urine pH (4.5-7.5) Ur Specific Blakeslee (1.000-1.030) Urine Protein (Negative) Urine Glucose (UA) (Negative) Urine Ketones (Negative) Urine Blood (Negative) Urine Nitrite (Negative) Urine Bilirubin (Negative) Urine Urobilinogen (Negative) Ur Leukocyte Esterase (Negative) Urine WBC (Auto) (0-5) /hpf Urine RBC (Auto) (0-2) /hpf U Hyaline Cast (Auto) (0-2) /lpf U Epithel Cells (Auto) (0-2) /hpf Urine Bacteria (Auto) (None Seen) Urine Comment 09/25/25 Range/Units 21:27 WBC (4.8-10.8) K/ul RBC (4.70-6.10) M/uL Hgb (14.0-18.0) g/dL Hct (42.0-52.0) % MCV (80.0-100.0) fL MCH (25.0-34.0) pg MCHC (32.0-36.0) g/dL RDW Std Deviation (36.4-46.3) fL RDW Coeff of Roverto (11.5-14.5) % Plt Count (130-400) K/uL MPV (9.4-12.4) fL Immature Gran % (Auto) % Neut % (Auto) % Lymph % (Auto) % Blount % (Auto) % Eos % (Auto) % Baso % (Auto) % Neut # (Auto) (1.40-6.50) K/uL Lymph # (Auto) (1.20-3.40) K/uL Blount # (Auto) (0.11-0.59) K/uL Eos # (Auto) (0.00-0.50) K/uL Baso # (Auto) (0.00-0.20) K/uL Immature Gran # (Auto) (0.01-0.20) K/uL ESR (0-20) mm/hr PT (9.0-12.0) Seconds INR (0.9-1.1) Sodium (136-145) mmol/L Potassium (3.5-5.1) mmol/L Chloride (98-107) mmol/L Carbon Dioxide (21-32) mmol/L Anion Gap (3-11) BUN (6-23) mg/dl Creatinine (0.6-1.4) mg/dl Est Cr Clr Drug Dosing ml/min eGFR BUN/Creatinine Ratio (10-20) Glucose (70-99(Fasting)) mg/dl POC Glucose 350 H* (70-99) mg/dl Osmolality (280-300) mOsm/kg Lactate (0.4-2.0) mmol/L Uric Acid (2.6-7.2) mg/dl Calcium (8.6-10.3) mg/dl Magnesium (1.7-2.4) mg/dl Total Bilirubin (0.2-1.0) mg/dl AST (13-39) U/L ALT (7-52) U/L Alkaline Phosphatase (34-104) U/L Total Protein (6.0-8.3) gm/dl Albumin (3.4-5.0) gm/dl Globulin (2.5-4.0) gm/dl Albumin/Globulin Ratio (0.9-2) Procalcitonin (0-0.5) ng/ml TSH (0.300-4.500) uIu/ml Urine Color Urine Appearance (Clear) Urine pH (4.5-7.5) Ur Specific Blakeslee (1.000-1.030) Urine Protein (Negative) Urine Glucose (UA) (Negative) Urine Ketones (Negative) Urine Blood (Negative) Urine Nitrite (Negative) Urine Bilirubin (Negative) Urine Urobilinogen (Negative) Ur Leukocyte Esterase (Negative) Urine WBC (Auto) (0-5) /hpf Urine RBC (Auto) (0-2) /hpf U Hyaline Cast (Auto) (0-2) /lpf U Epithel Cells (Auto) (0-2) /hpf Urine Bacteria (Auto) (None Seen) Urine Comment Administered Medications Acetaminophen (Acetaminophen 500 Mg Tab) 1,000 mg PO TID AIMEE Stop: 10/26/25 13:59 Last Admin: 09/29/25 16:07 Dose: 1,000 mg Documented By: Admin: 09/29/25 10:17 Dose: 1,000 mg Documented By: Admin: 09/28/25 20:04 Dose: 1,000 mg Documented By: rick Admin: 09/28/25 14:23 Dose: 1,000 mg Documented By: jorge a Admin: 09/28/25 08:02 Dose: 1,000 mg Documented By: jorge a Admin: 09/27/25 20:28 Dose: 1,000 mg Documented By: Admin: 09/27/25 13:19 Dose: 1,000 mg Documented By: jorge a Admin: 09/27/25 08:57 Dose: 1,000 mg Documented By: [email or web address] Admin: 09/26/25 21:30 Dose: 1,000 mg Documented By: [id number] Admin: 09/26/25 13:56 Dose: 1,000 mg Documented By: JLM Apixaban (Apixaban 2.5 Mg Tab) 2.5 mg PO BID AIMEE Stop: 10/26/25 08:59 Last Admin: 09/29/25 10:17 Dose: 2.5 mg Documented By: Admin: 09/28/25 20:04 Dose: 2.5 mg Documented By: rick Admin: 09/28/25 08:01 Dose: 2.5 mg Documented By: jorge a Admin: 09/27/25 20:29 Dose: 2.5 mg Documented By: Admin: 09/27/25 08:55 Dose: 2.5 mg Documented By: jorge a Admin: 09/26/25 21:31 Dose: 2.5 mg Documented By: [id number] Admin: 09/26/25 08:40 Dose: 2.5 mg Documented By: NEREYDA Cyanocobalamin (Cyanocobalamin (B-12) 500 Mcg Tablet) 500 mcg PO DAILY AIMEE Stop: 10/26/25 08:59 Last Admin: 09/29/25 10:17 Dose: 500 mcg Documented By: Admin: 09/28/25 08:00 Dose: 500 mcg Documented By: jorge a Admin: 09/27/25 08:55 Dose: 500 mcg Documented By: jorge a Admin: 09/26/25 08:40 Dose: 500 mcg Documented By: NEREYDA Doxycycline Hyclate (Doxycycline Hyclate 100 Mg Cap) 100 mg PO BID AIMEE Stop: 10/03/25 08:59 Last Admin: 09/29/25 10:16 Dose: 100 mg Documented By: Admin: 09/28/25 20:05 Dose: 100 mg Documented By: rick Admin: 09/28/25 08:00 Dose: 100 mg Documented By: jorge a Admin: 09/27/25 20:29 Dose: 100 mg Documented By: Admin: 09/27/25 08:55 Dose: 100 mg Documented By: jorge a Admin: 09/26/25 21:32 Dose: 100 mg Documented By: [id number] Admin: 09/26/25 08:40 Dose: 100 mg Documented By: NEREYDA Duloxetine HCl (Duloxetine Hcl 20 Mg Cap) 20 mg PO QPM AIMEE Stop: 10/26/25 20:59 Last Admin: 09/28/25 20:04 Dose: 20 mg Documented By: rick Admin: 09/27/25 20:29 Dose: 20 mg Documented By: Admin: 09/26/25 21:32 Dose: 20 mg Documented By: [id number] Folic Acid (Folic Acid 1 Mg Tab) 1 mg PO QA AIMEE Stop: 10/26/25 08:59 Last Admin: 09/29/25 10:17 Dose: 1 mg Documented By: Admin: 09/28/25 08:01 Dose: 1 mg Documented By: jorge a Admin: 09/27/25 08:55 Dose: 1 mg Documented By: jorge a Admin: 09/26/25 08:40 Dose: 1 mg Documented By: NEREYDA Hydromorphone HCl (Hydromorphone Hcl 2 Mg Tab) 2 mg PO Q3H PRN PRN Reason: Severe Pain (Scale 7, 8, 9,10) Stop: 10/10/25 10:41 Last Admin: 09/27/25 04:08 Dose: 2 mg Documented By: TOBIN Cefepime HCl (Maxipime 2000mg) 2,000 mg in 20 mls @ 5 mls/min IV Q12H [facility]; Protocol Stop: 10/03/25 03:59 Last Admin: 09/29/25 16:07 Dose: 5 mls/min Documented By: Admin: 09/29/25 03:43 Dose: 5 mls/min Documented By: rick Admin: 09/28/25 17:36 Dose: 5 mls/min Documented By: jorge a Admin: 09/28/25 03:39 Dose: 5 mls/min Documented By: Admin: 09/27/25 16:31 Dose: 5 mls/min Documented By: jorge a Admin: 09/27/25 04:44 Dose: 5 mls/min Documented By: Admin: 09/26/25 15:56 Dose: 5 mls/min Documented By: Admin: 09/26/25 04:56 Dose: 5 mls/min Documented By: OLEGARIO Insulin Aspart (Insulin Aspart Per Unit Charge) 0 units SC ACHS [facility] Stop: 10/25/25 20:54 Last Admin: 09/29/25 18:17 Dose: 6 units Documented By: ZBIGNIEW Co-signed By: [facility] Admin: 09/29/25 14:01 Dose: 6 units Documented By: ZBIGNIEW Co-signed By: [facility] Admin: 09/29/25 10:29 Dose: 2 units Documented By: ZBIGNIEW Co-signed By: [facility] Admin: 09/28/25 20:57 Dose: 4 units Documented By: rick Co-signed By: NICOLETTE Admin: 09/28/25 18:23 Dose: 7 units Documented By: jorge a Co-signed By: marielena Admin: 09/28/25 13:28 Dose: 5 units Documented By: jorge a Co-signed By: shira Admin: 09/28/25 09:02 Dose: Not Given Documented By: jorge a Admin: 09/27/25 20:26 Dose: 4 units Documented By: KIANNA Co-signed By: RAMA Admin: 09/27/25 18:35 Dose: 4 units Documented By: jorge a Co-signed By: MAURICIO Admin: 09/27/25 13:19 Dose: 6 units Documented By: jorge a Co-signed By: JORDON Admin: 09/27/25 09:44 Dose: 4 units Documented By: jorge a Co-signed By: shira Admin: 09/26/25 21:33 Dose: 4 units Documented By: [id number] Co-signed By: SYDNI Admin: 09/26/25 16:50 Dose: 7 units Documented By: NEREYDA Co-signed By: DEANA Admin: 09/26/25 12:06 Dose: 3 units Documented By: NEREYAD Co-signed By: HAYLEY Admin: 09/26/25 08:39 Dose: 4 units Documented By: NEREYDA Co-signed By: DEANA Admin: 09/25/25 21:36 Dose: 9 units Documented By: [id number] Co-signed By: FRANCIA Insulin Glargine (Lantus Per Unit Charge) 30 units SQ BID AIMEE Stop: 10/27/25 08:59 Last Admin: 09/29/25 10:18 Dose: 30 units Documented By: ZBIGNIEW Co-signed By: [facility] Admin: 09/28/25 20:20 Dose: 30 units Documented By: rick Co-signed By: NICOLETTE Admin: 09/28/25 09:07 Dose: 30 units Documented By: jorge a Co-signed By: [facility] Admin: 09/27/25 20:26 Dose: 30 units Documented By: KIANNA Co-signed By: RAMA Admin: 09/27/25 09:43 Dose: 30 units Documented By: jorge a Co-signed By: shira Metoprolol Tartrate (Metoprolol Tartrate 50 Mg Tab) 50 mg PO BID AIMEE Stop: 10/26/25 08:59 Last Admin: 09/29/25 10:17 Dose: 50 mg Documented By: Admin: 09/28/25 20:26 Dose: 50 mg Documented By: rick Admin: 09/28/25 08:00 Dose: 50 mg Documented By: jorge a Admin: 09/27/25 20:29 Dose: 50 mg Documented By: Admin: 09/27/25 08:55 Dose: 50 mg Documented By: jorge a Admin: 09/26/25 21:32 Dose: 50 mg Documented By: [id number] Admin: 09/26/25 08:40 Dose: 50 mg Documented By: NEREYDA Prednisone (Prednisone 5 Mg Tab) 5 mg PO BID [facility] Stop: 10/26/25 08:59 Last Admin: 09/29/25 10:16 Dose: 5 mg Documented By: Admin: 09/28/25 20:04 Dose: 5 mg Documented By: rick Admin: 09/28/25 08:01 Dose: 5 mg Documented By: jorge a Admin: 09/27/25 20:29 Dose: 5 mg Documented By: Admin: 09/27/25 08:55 Dose: 5 mg Documented By: jorge a Admin: 09/26/25 21:33 Dose: 5 mg Documented By: [id number] Admin: 09/26/25 08:41 Dose: 5 mg Documented By: JLM Rosuvastatin Calcium (Rosuvastatin Calcium 20 Mg Tab) 20 mg PO QPM [facility] Stop: 10/26/25 20:59 Last Admin: 09/28/25 20:20 Dose: 20 mg Documented By: rick Admin: 09/27/25 20:29 Dose: 20 mg Documented By: Admin: 09/26/25 21:32 Dose: 20 mg Documented By: [id number] Tramadol HCl (Tramadol Hcl 50 Mg Tablet) 50 mg PO Q6H PRN PRN Reason: Moderate Pain (Scale 4, 5, 6) Stop: 10/26/25 10:42 Last Admin: 09/29/25 16:51 Dose: 50 mg Documented By: Admin: 09/29/25 10:29 Dose: 50 mg Documented By: Admin: 09/29/25 03:42 Dose: 50 mg Documented By: rick Admin: 09/28/25 20:24 Dose: 50 mg Documented By: rick Admin: 09/28/25 12:20 Dose: 50 mg Documented By: jorge a Admin: 09/28/25 06:17 Dose: 50 mg Documented By: Admin: 09/27/25 20:27 Dose: 50 mg Documented By: Admin: 09/27/25 02:35 Dose: 50 mg Documented By: BJS Vitamin D (Cholecalciferol 25 Mcg (1000 Units) Tab) 50 mcg PO DAILY [facility] Stop: 10/26/25 08:59 Last Admin: 09/29/25 10:16 Dose: 50 mcg Documented By: Admin: 09/28/25 08:00 Dose: 50 mcg Documented By: jorge a Admin: 09/27/25 08:55 Dose: 50 mcg Documented By: jorge a Admin: 09/26/25 08:40 Dose: 50 mcg Documented By: [email or web address] Voriconazole (Voriconazole 200 Mg Tablet) 200 mg PO BID AIMEE Stop: 10/26/25 08:59 Last Admin: 09/29/25 10:18 Dose: 200 mg Documented By: Admin: 09/28/25 20:04 Dose: 200 mg Documented By: [email or web address] Admin: 09/28/25 08:00 Dose: 200 mg Documented By: jorge a Admin: 09/27/25 20:29 Dose: 200 mg Documented By: Admin: 09/27/25 08:55 Dose: 200 mg Documented By: jorge a Admin: 09/26/25 21:31 Dose: 200 mg Documented By: [id number] Admin: 09/26/25 08:40 Dose: 200 mg Documented By: [email or web address] Discontinued Medications Hydrocodone Bitart/Acetaminophen (Hydrocodone/Acetamophen 5/325mg Tab) 1 tab PO NOW STA Stop: 09/25/25 22:20 Last Admin: 09/25/25 22:52 Dose: 1 tab Documented By: [id number] Sodium Chloride (Nss) 1,000 mls @ 999 mls/hr IV .Q1H1M ONE Stop: 09/25/25 19:47 Last Infusion: 09/25/25 19:52 Dose: Infused Documented By: [id number] Admin: 09/25/25 19:03 Dose: 999 mls/hr Documented By: [id number] Acetaminophen (Ofirmev) 1,000 mg in 100 mls @ 400 mls/hr IV NOW STA Stop: 09/25/25 20:37 Last Infusion: 09/25/25 21:17 Dose: Infused Documented By: [id number] Admin: 09/25/25 20:48 Dose: 400 mls/hr Documented By: [id number] Piperacillin Sod/Tazobactam Sod (Zosyn) 4.5 gm in 100 mls @ 200 mls/hr IV NOW ONE; Protocol Stop: 09/25/25 20:52 Last Infusion: 09/25/25 21:45 Dose: Infused Documented By: [id number] Admin: 09/25/25 21:16 Dose: 200 mls/hr Documented By: [id number] Vancomycin HCl 2,000 mg/ (Sodium Chloride) 540 mls @ 200 mls/hr IV NOW ONE Stop: 09/25/25 23:04 Last Admin: 09/25/25 21:41 Dose: Not Given Documented By: [id number] Sulfate/Dextrose (Magnesium Sulfate / D5w) 1 gm in 100 mls @ 50 mls/hr IV ONE ONE Stop: 09/25/25 22:37 Last Infusion: 09/25/25 22:57 Dose: Infused Documented By: [id number] Admin: 09/25/25 20:49 Dose: 50 mls/hr Documented By: [id number] Doxycycline Hyclate (Vibramycin) 100 mg in 100 mls @ 50 mls/hr IV NOW STA Stop: 09/25/25 22:41 Last Infusion: 09/26/25 00:06 Dose: Infused Documented By: Admin: 09/25/25 21:48 Dose: 50 mls/hr Documented By: [id number] Sodium Chloride (Nss) 1,000 mls @ 100 mls/hr IV .Q10H ONE Stop: 09/26/25 10:54 Last Infusion: 09/26/25 11:07 Dose: Infused Documented By: Admin: 09/26/25 01:07 Dose: 75 mls/hr Documented By: OLEGARIO Insulin Glargine (Lantus Per Unit Charge) 25 units SQ NOW STA Stop: 09/25/25 21:42 Last Admin: 09/25/25 21:59 Dose: 25 units Documented By: [id number] Co-signed By: FRANCIA Insulin Glargine (Lantus Per Unit Charge) 25 units SQ BID AIMEE Stop: 10/26/25 08:59 Last Admin: 09/26/25 21:34 Dose: 25 units Documented By: [id number] Co-signed By: SYDNI Admin: 09/26/25 08:38 Dose: 25 units Documented By: [email or web address] Co-signed By: DEANA Metoprolol Tartrate (Metoprolol Tartrate 1 Mg/Ml Vial) 2.5 mg IV NOW STA Stop: 09/25/25 20:39 Last Admin: 09/25/25 20:49 Dose: 2.5 mg Documented By: [id number] Metoprolol Tartrate (Metoprolol Tartrate 25 Mg Tab) 25 mg PO NOW STA Stop: 09/25/25 23:54 Last Admin: 09/26/25 01:08 Dose: 25 mg Documented By: OLEGARIO Prednisone (Prednisone 5 Mg Tab) 5 mg PO NOW ONE Stop: 09/25/25 22:22 Last Admin: 09/25/25 22:52 Dose: 5 mg Documented By: [id number] Discharge Plan Visit Data Chief Complaint: Hyperglycemia Stated Complaint: HIGH BLOOD SUGAR, FOOT PAIN ED Provider: Aric Mendez Discharge Problem: Lower extremity cellulitis, Hyperglycemia due to type 2 diabetes mellitus, CKD (chronic kidney disease) Patient Disposition: Admitted As Inpatient Condition: Fair Discharge Instructions Interventions: ED Discharge Assessment Last Done: 09/25/25 22:59 Discharge Problem: Lower extremity cellulitis Qualifiers: Laterality: left Qualified Code(s): L03.116 - Cellulitis of left lower limb Hyperglycemia due to type 2 diabetes mellitus Qualifiers: Diabetes mellitus 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
[2025-09-25 19:33] LABS: Thyroid Stimulating Hormone 2.296 uIu/ml (0.300-4.500)
[2025-09-25 19:34] LABS: INR 1.0 (0.9-1.1); Prothrombin Time 10.9 Seconds (9.0-12.0)
[2025-09-25] MEDS ORDERED: VANCOMYCIN CONSULT ACTIVE PRN (20:23)
[2025-09-25] MEDS: ACETAMINOPHEN 1,000 MG/100 ML VIAL IV STA (20:48)
[2025-09-25] MEDS: MAGNESIUM SULFATE / D5W 1 GM/100 ML BAG IV ONE (20:49)
[2025-09-25] MEDS: METOPROLOL TARTRATE 1 MG/ML VIAL IV STA (20:49)
[2025-09-25] MEDS ORDERED: GLUCAGON FOR INJ 1 MG VIAL SQ PRN (20:53)
[2025-09-25] MEDS ORDERED: DEXTROSE 50% 50 ML SYRINGE IV PRN (20:53)
[2025-09-25] MEDS ORDERED: GLUCOSE 40% GEL 15 GM TUBE PO PRN (20:53)
[2025-09-25] MEDS ORDERED: CARBOHYDRATES FOR HYPOGLYCEMIA PO PRN (20:53)
[2025-09-25] MEDS ORDERED: GLUCOSE 10 TAB/TUBE PO PRN (20:53)
[2025-09-25 20:54] LABS: Uric Acid 2.6 mg/dl (2.6-7.2)
--- NOTE | 2025-09-25 20:57 | History & Physical Report ---
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 Patient developed left foot pain and swelling 2 days ago that progressed to inability to wear weight to the left foot. Pain characterized by a burning sensation and occasional spasms; he took tramadol this afternoon with only some relief. No fevers, chills, falls, lacerations to the left foot. He went to his PCP today for evaluation, prescribed Keflex, but has not taken any doses. Imaging done outpatient today included: DVT to left leg negative DVT, Left Foot Xray negative for acute fracture. He has neuropathy with minimal sensation to the bottom of his foot. Currently unable to move toes and using walker for ambulation. #Lower extremity cellulitis vs osteo, possible sepsis * Admit for additional management and treatment * 2 day history erythema, swelling, severe pain; Outpatient L foot Xray negative acute fracture; Doppler US neg DVT * Leukocytosis WBC 15K, Procal elevated 0.54, lactate 2.0, no fever/chills-> possible sepsis with leukocytosis, tachycardia, borderline tachypnea * blood cultures pending-> continue broad-spectrum antibiotic with Zosyn and Vanco for MRSA coverage * Will obtain CT left foot wo contrast for r/o osteomyelitis as per Dr. Cifuentes-> see addendum * Hydrocodone/Acetaminophen for mild-mod pain, Dilaudid for severe pain * PT/OT consult when able #Permanent Afib * On metoprolol, anticoagulated w/ eliquis * EKG showing Afib RVR , vent rate 118, no ST elevation on admission; run Vtach with rate 189 in ED-> improved with Mag and Lopressor IV * Tele monitoring * Follow labs and replace as needed * Continue home metoprolol #SARWAT * Mild increase Creatinine to 1.49, up from 1.41 last admission; IV fluids given * Trend with morning labs #Diabetes Mellitus Type II * Hyperglycemic glucose 487 on admission, as high as 500's at PCP; urine +protein, neg ketones * Insulin management Continue home Tresiba * SSI for goal BSG 110-140-> adjust as needed #Hypertension * Above goal on admission 156/81, possibly pain related, down to 111/76 now * Trend BP's #History of Aspergillus pneumonia * Recent confinement [facility] 08/24-08/29/25 for sepsis due to aspergillosis pneumonia, on extended antifungal tx w/ voriconazole until October * No respiratory symptoms, NAD * Continue home voriconazole tx #Chronic steroid use 2/2 PMR * Continue pred 5mg as per home routine #Hyperlipidemia * Continue home statin Additional assessment and plan as per Dr. Cifuentes. See addendum. DVT Ppx: on Eliquis Code status: DNR/DNI PCP: Dr. Truong Dispo: Admit Patient seen in collaboration with Dr. Cifuentes. Please see addendum.I spent a total of 45 minutes coordinating, documenting and providing care for this patient excluding time spent in the performance of separately billed services or time spent by another provider/QHP. 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 Patient developed left foot pain and swelling 2 days ago that progressed to inability to wear weight to the left foot. Pain characterized by a burning sensation and occasional spasms; he took tramadol this afternoon with only some relief. No fevers, chills, falls, lacerations to the left foot. He went to his PCP today for evaluation, prescribed keflex, but has not taken any doses. Imaging done outpatient today included: DVT to left leg negative DVT, Left Foot Xray negative for acute fracture. He has neuropathy with minimal sensation to the bottom of his foot. Currently unable to move toes and using walker for ambulation. Denies fever, chills, weight loss, weakness, headache, cognitive changes, vision/hearing changes, chest pain, SOB, difficulty breathing, urinary concerns, N/V/D, skin rashes, lesions, bleeding, bruising. In the emergency department, patient was tachycardic upon admission to the ED up to 120's. EKG showing Afrib RVR, rate 118, no ST elevation. Patient then developed several runs of Vtach when HR up to 180's. IV Lopressor and Mag ordered. Heart rate down to 115. No chest pain. Afebrile and normotensive. Leukocytosis noted on lab workup with WBC 15K. Blood cultures collected and pending. 1L NSS given. Zosyn and Vanco given in ED for suspected cellulitis vs possible osteomyelitis. Glucose elevated to 487. Urine + protein and gluc, no ketones. Patient has been taking home insulin as prescribed. On chronic prednisone for PMR. Additional labs showing hyponatremia with Na+ 129, mild SARWAT with slight increased creatinine 1.49, previously 1.41 in August, also noted to have high serum osmolality to 306. Mildly slow to respond to questions on my exam and appeared fatigued. Afebrile at the time of assessment with BSG 350. Reporting significant pain to the left foot at the time and when repositioned and given a drink of water, cognition improved. Family reports the patient has not been sleeping well since foot pain developed. Recent confinement [facility] 08/24-08/29/25 for sepsis due to aspergillosis pneumonia and treated with voriconazole with recommendation for 6 to 12 weeks of treatment. Following this admission, patient was transferred to rehab for 8 days and has been at home with support since then. Patient and family report he has been doing well at home with no concerns and has been compliant with medications. Insulin regimen is fairly new, but he is following the recommendations provided at discharge; he takes long acting insulin daily. As per external chart review, patient was seen by PCP today for left foot pain and swelling. As per today's visit record, foot Xray today showing No acute displaced fracture or dislocation, Vascular calcifications, Enthesophyte at the insertion of the Achilles tendon, Plantar calcaneal spur. Doppler ultrasound of left foot negative for DVT. Currently on voriconazole for fungal pneumonia from 08/24 hospitalization with projected treatment completion the end of October. He has experienced diarrhea with this medication. History obtained primarily from the patient and via hospitalization record. The patient's family was at the bedside and assisted with past medical history, current illness and home medications. External chart review obtained from [facility]. Allergies Allergy/AdvReac Type Severity Reaction Status Date / Time oxycodone Allergy Intermediate WHEEZING, Verified 09/25/25 20:39 maybe trouble breathing Home Medications Medication Instructions Recorded Confirmed Type alendronate 70 mg tablet (Fosamax) 70 mg PO WK 12/25/21 09/25/25 History duloxetine 20 mg capsule,delayed 20 mg PO QPM 12/25/21 09/25/25 History release prednisone 5 mg tablet 5 mg PO BID 12/25/21 09/25/25 History lancets 33 gauge (OneTouch Delica 07/26/25 07/26/25 History Plus Lancet) tirzepatide 2.5 mg/0.5 mL 2.5 mg subcut WK 07/26/25 09/25/25 History subcutaneous pen injector (Ismael) insulin degludec 200 unit/mL (3 34 unit (0.17 mL) subcut QAM #0 mL 08/29/25 09/25/25 Rx mL) subcutaneous pen (Tresiba FlexTouch U-200 insulin) voriconazole 200 mg tablet 200 mg PO BID 70 days #140 tabs 08/29/25 09/25/25 Rx acetaminophen 500 mg tablet 500 - 1,000 mg PO Q6H PRN Pain 09/25/25 09/25/25 History apixaban 2.5 mg tablet (Eliquis) 2.5 mg PO BID 09/25/25 09/25/25 History cephalexin 500 mg capsule 500 mg PO TID 09/25/25 09/25/25 History cholecalciferol (vitamin D3) 50 50 mcg PO DAILY 09/25/25 09/25/25 History mcg (2,000 unit) capsule (Vitamin D3) cyanocobalamin (vitamin B-12) 500 500 mcg PO DAILY 09/25/25 09/25/25 History mcg tablet (Vitamin B-12) folic acid 1 mg tablet 1 mg PO QAM 09/25/25 09/25/25 History insulin aspart U-100 100 unit/mL 10 unit subcut AC 09/25/25 09/25/25 History (3 mL) subcutaneous pen (Novolog FlexPen U-100 Insulin aspart) metoprolol tartrate 50 mg tablet 50 mg PO BID 09/25/25 09/25/25 History rosuvastatin 20 mg tablet 20 mg PO QPM 09/25/25 09/25/25 History tramadol 50 mg tablet 50 mg PO Q8H PRN Pain 09/25/25 09/25/25 History Past Med/Surg History Problem List (Updated 09/25/25 @ 22:14 by TATIANA Connelly) Lower extremity cellulitis Invasive aspergillosis Decreased immunoglobulin M Hemoptysis Diabetes mellitus type 2, insulin dependent Severe sepsis with acute organ dysfunction Pulmonary cavitary lesion Elevated troponin Hypoxia (Acute) Aspergillus pneumonia (Acute) Ex-smoker Pulmonary mass Chronic anticoagulation (Acute) Pseudohyponatremia (Acute) On prednisone therapy Syncope Abnormal CT scan, chest Generalized weakness (Acute) COPD with emphysema Pulmonary edema (Acute) Scrotal swelling Tight foreskin HTN, goal below 140/90 Steroid-induced osteoporosis Permanent atrial fibrillation Encounter for pre-operative examination Weakness (Acute) Medical History (Updated 09/25/25 @ 22:14 by TATIANA Connelly) Hx of non-ST elevation myocardial infarction (NSTEMI) 10/2024 [facility] admission: type II NSTEMI vs demand ischemia Bronchiectasis Pulmonary mass COPD (chronic obstructive pulmonary disease) emphysema History of pneumonia pt was tx for PNA based on 07/2025 chest imaging (per pulm, PNA vs mass) History of sepsis (10/2024) hospitalized [facility]. History of recent hospitalization pt has had multiple recent hospitalizations; most recent: [facility] 07/02-07/04/25: pt with vomiting 2/2 starting GLP1 and possible aspiration PNA; required 2L O2 NC for short time but weaned; D/C on Augmentin Osteoporosis Aspiration pneumonitis hx hospitalization [facility] 10/2024. Chronic steroid use for PMR Polymyalgia rheumatica takes prednisone BID to manage. Osteoarthritis Diabetes mellitus, type 2 On anticoagulant therapy coumadin for afib Hyperlipidemia Hypertension Atrial fibrillation Surgical History History of left cataract surgery History of right cataract surgery History of arthroscopy of left shoulder S/P left knee arthroscopy History of colonoscopy H/O eye surgery bilateral tear duct procedures to place a "drain" Family History Other No family history of adverse response to anesthesia Social History Smoking Status: Never smoker Tobacco Type: Cigarettes Age Started Using Tobacco: 12; Age Quit Using Tobacco: 38; packs per day: 2; Second Hand Exposure: No; Do You Dip or Chew Tobacco: No; Tobacco Cessation Education Requested by Patient: No Hx Alcohol Use: No Hx Substance Use: No Preferred Language: Armenian Communication Ability: Effective Licensed Midwife Required: No Beliefs That Will Affect Care: None marital status: Current Living Situation: Spouse Current Living Situation Comment: one story house with one cat Other Information That Helps Us Care for You: No Feels Safe at Home: Yes Safety Concerns: Feels Safe At This Time Assistive Devices: Glasses and Hearing Aid - Bilateral Review of Systems Review of Systems: All systems reviewed & are unremarkable except as noted in HPI & below Physical Exam Physical Exam: VITALS: Reviewed. WEIGHT/BMI reviewed. GEN: Healthy appearing, flushed, well-developed, NAD. PSYCH: Good Judgment. AOx3. Normal memory, mood, and affect. HEENT -Head: NC/AT; -Eyes: PERRL, EOMI. No discharge or redn ess; -Ears: External ears are normal. -Nose: Normal nares. -Mouth and throat: MMM. Normal gums, muc farshad, palate,. Good dentition. NECK: Supple, with no masses. CV: Tachycardic to 120's, Afib on ECG monitor, irregular rhythm, unable to appreciate murmur LUNGS: CTAB, no w/r/c. ABD: Soft, NT/ND, NBS, no masses or organomegaly. : N/A SKIN: Warm, well perfused. scabbed lesion to L plantar region of foot MSK: Left foot swelling with erythema and severe tenderness with light palpation, minimal movement and sensation to lle EXT: No clubbing, cyanosis, or edema. NEURO: CN II-XII grossly intact. Speech clear. No focal deficits. Results & Data Results & Data Vital Signs (Past 12 Hours) Vital Signs Temp Pulse Resp BP Pulse Ox O2 Del Method 09/25/25 19:58 182 H 09/25/25 19:05 94 Room Air 09/25/25 18:42 36.7 C 18 98 Room Air 09/25/25 18:29 36.7 C 113 H 18 156/81 H 98 Room Air 09/25/25 18:28 112 H Laboratory Results Short CBC 09/25/25 Range/Units 18:31 WBC 15.14 H (4.8-10.8) K/ul Hgb 12.2 L (14.0-18.0) g/dL Hct 37.2 L (42.0-52.0) % Plt Count 175 (130-400) K/uL BMP 09/25/25 18:31 Sodium 129 L Potassium 4.8 Chloride 97 L Carbon Dioxide 21 BUN 37 H Creatinine 1.49 H Glucose 487 H* Calcium 9.3 Liver Function 09/25/25 Range/Units 18:31 Total Bilirubin 0.5 (0.2-1.0) mg/dl AST 16 (13-39) U/L ALT 12 (7-52) U/L Alkaline Phosphatase 59 (34-104) U/L Albumin 3.5 (3.4-5.0) gm/dl Urine 09/25/25 Range/Units 19:00 Urine Color Yellow Urine Appearance Clear (Clear) Urine pH 6.0 (4.5-7.5) Ur Specific [place] 1.030 (1.000-1.030) Urine Protein 1+ H (Negative) Urine Glucose (UA) 3+ H (Negative) Diagnostic Findings Chest X-Ray 09/25/25 20:46 Exam(s): XR CXR 1 VIEW EXAM: XR Chest, 1 View CLINICAL HISTORY: Reason for exam: renal failure. TECHNIQUE: Frontal view of the chest. COMPARISON: . FINDINGS: Lungs: No consolidation. Pleural space: No pleural effusion is seen. No pneumothorax. Heart: The heart is normal in size.. Mediastinum: There is mild uncoiling of thoracic aorta.. Bones/joints: There are degenerative changes in the spine.. IMPRESSION: No acute pulmonary disease.. Electronically signed by: Lencho Juan MD 09/25/25 23:02 PM Supervising Physician Co-Signing Physician Notes IM ATTENDING : Patient seen and examined. History obtained from patient and records. Concur with salient points upon review of preceding documentation by TATIANA Sales In addition, patient had run of wide-complex tachycardia at the ER. Patient sleeping during episode. I take responsibility for plan of care below. FINAL ASSESSMENT AND PLAN as follows : Severe sepsis SIRS plus ARF on CKD Immunocompromised patient, history PMR on chronic steroid Rx Secondary to left foot cellulitis rule out abscess Wide-complex tachycardia secondary to illness, patient asymptomatic during episode Chronic diastolic heart failure (EF 65%, TTE 2024), patient on the dry side A-fib on Eliquis Hypertension, elevated secondary to illness Hyperlipidemia on statin Rx COPD, FARSHAD on CPAP, lung status at baseline Pulmonary aspergillosis pneumonia ongoing voriconazole Rx (until October 2025) DM2 insulin requiring, patient markedly hyperglycemic due to chronic prednisone Rx, suboptimal control as of recent hemoglobin A1c of 10.8 this month Chronic anemia, hemoglobin at baseline Past tobacco abuse Admit to PCU given wide-complex tachycardia IV beta-sara 1 dose now Cardiology consult if with recurrence CS, cefepime, doxycycline for now CT left foot Monitor creatinine response to IVF Basal bolus insulin, ISS BG goal 110-140, carb count coverage DVT prophylaxis. Eliquis Full code Patient son requesting updates providers. Mr. Hemanth Mcpherson, contact #[phone]. I spent a total of 30 minutes coordinating, documenting, and providing care for this patientexcludingtime spent by another provider/QHP. Text document was generated using [employer] voice recognition software. It may contain grammatical or spelling errors. Kindly contact undersigned for clarification of any documentation item in question.
[2025-09-25] MEDS: PIPERACILLIN/TAZOBACTAM 4.5 GM/100 ML BAG IV ONE (21:16)
[2025-09-25] MEDS: VANCOMYCIN HCL 2,000 MG in SODIUM CHLORIDE 0.9% 500 ML IV ONE (21:30)
[2025-09-25] MEDS: INSULIN ASPART PER UNIT CHARGE SC SCH (21:36)
[2025-09-25] MEDS: LANTUS PER UNIT CHARGE SQ STA (21:59)
[2025-09-25] MEDS ORDERED: HYDROmorphone INJ 0.5 MG/0.5 ML SYR IV PRN (22:18)
[2025-09-25] MEDS ORDERED: HYDROCODONE/ACETAMOPHEN 5/325MG TAB PO PRN (22:19)
[2025-09-25] MEDS ORDERED: ACETAMINOPHEN 325 MG TAB PO PRN (22:22)
[2025-09-25] MEDS: HYDROCODONE/ACETAMOPHEN 5/325MG TAB PO STA (22:52)
--- NOTE | 2025-09-25 23:02 | XRay Report ---
Exam(s): XR CXR 1 VIEW EXAM: XR Chest, 1 View CLINICAL HISTORY: Reason for exam: renal failure. TECHNIQUE: Frontal view of the chest. COMPARISON: . FINDINGS: Lungs: No consolidation. Pleural space: No pleural effusion is seen. No pneumothorax. Heart: The heart is normal in size.. Mediastinum: There is mild uncoiling of thoracic aorta.. Bones/joints: There are degenerative changes in the spine.. IMPRESSION: No acute pulmonary disease.. Electronically signed by: Lencho Juan MD 09/25/25 23:02 PM
[2025-09-25] MEDS ORDERED: PROMETHAZINE 6.25 MG/50.25 ML BAG IV PRN (23:03)
--- NOTE | 2025-09-25 23:55 | CT Scan Report ---
Exam(s): CT LEFT FOOT Without Contrast EXAM: CT Left Lower Extremity Without Intravenous Contrast, Foot CLINICAL HISTORY: Reason for exam: swelling, pls include ankle cuts. OTHER: Other Notes: swelling TECHNIQUE: Axial computed tomography images of the left foot without intravenous contrast. CTDI is 24.91 mGy and DLP is 594.28 mGy-cm. Automated exposure control was utilized for the study. A dose lowering technique was utilized adhering to the principles of ALARA. COMPARISON: No relevant prior studies available. FINDINGS: Bones/joints: No acute fracture. No dislocation. There are hypertrophic degenerative changes. There are large calcaneal spurs. Soft tissues: There is soft tissue swelling and edema.. IMPRESSION: Soft tissue swelling and edema. Hypertrophic degenerative changes. If further evaluation is clinically necessary, consider correlation with MRI Electronically signed by: Lencho Juan MD 09/25/25 23:40 PM
[2025-09-26] MEDS: SODIUM CHLORIDE 0.9% 1,000 ML IV ONE (01:07)
[2025-09-26] MEDS: METOPROLOL TARTRATE 25 MG TAB PO STA (01:08)
[2025-09-26] MEDS: CEFEPIME 2000MG 2,000 MG/20 ML SYR IV SCH (04:56)
[2025-09-26] MEDS: LANTUS PER UNIT CHARGE SQ SCH (08:38)
[2025-09-26] MEDS: CHOLECALCIFEROL 25 MCG (1000 UNITS) TAB PO SCH (08:40)
[2025-09-26] MEDS: DOXYCYCLINE HYCLATE 100 MG CAP PO SCH (08:40)
[2025-09-26] MEDS: FOLIC ACID 1 MG TAB PO SCH (08:40)
[2025-09-26] MEDS: CYANOCOBALAMIN (B-12) 500 MCG TABLET PO SCH (08:40)
[2025-09-26] MEDS: VORICONAZOLE 200 MG TABLET PO SCH (08:40)
[2025-09-26] MEDS: APIXABAN 2.5 MG TAB PO SCH (08:40)
[2025-09-26] MEDS: METOPROLOL TARTRATE 50 MG TAB PO SCH (08:40)
[2025-09-26] MEDS ORDERED: LANTUS PER UNIT CHARGE SQ SCH (09:00)
[2025-09-26 10:21] LABS: Hematocrit (blood only) 34.1 % (42.0-52.0); Hemoglobin 11.2 g/dL (14.0-18.0); Immature Granulocytes # (auto) 0.06 K/uL (0.01-0.20); Immature Granulocytes % (auto) 0.5 %; Mean Corpuscular Hemoglobin 30.2 pg (25.0-34.0); Mean Corpuscular Volume 91.9 fL (80.0-100.0); Platelet Count 148 K/uL (130-400); RDW Standard Deviation 51.6 fL (36.4-46.3); Red Blood Count 3.71 M/uL (4.70-6.10); White Blood Count 11.83 K/ul (4.8-10.8)
[2025-09-26 10:34] LABS: Anion Gap 5.0 (3-11); Blood Urea Nitrogen 29.0 mg/dl (6-23); Calcium 8.5 mg/dl (8.6-10.3); Carbon Dioxide 24.0 mmol/L (21-32); Chloride 103.0 mmol/L (98-107); Creatinine Clr Calc Pharmacy 45.0 ml/min; Glucose 252.0 mg/dl (70-99(Fasting)); Potassium 4.7 mmol/L (3.5-5.1); Sodium 132.0 mmol/L (136-145)
--- NOTE | 2025-09-26 10:54 | Hospitalist Progress Note ---
Date of Service September 26, 2025 Assessment & Plan (1) Cellulitis of foot associated with diabetes mellitus: (2) Pseudohyponatremia: (3) Invasive aspergillosis: Plan: Present on admission (4) Permanent atrial fibrillation: (5) Diabetes mellitus type 2, insulin dependent: (6) COPD with emphysema: (7) HTN, goal below 140/90: (8) Chronic steroid use: (9) Polymyalgia rheumatica: Plan Patient a 1-year-old gentleman presents with painful left foot cellulitis in the setting of uncontrolled diabetes and chronic steroid use Continue antibiotics Monitor blood cultures Pain control Therapies Continue other outpatient medications as prescribed Continue to adjust insulin for better blood glucose control Case management for possible placement Continue voriconazole for invasive aspergillus that was present on admission Phone update to patient's son. He reports that sugars were well-controlled when patient was in center care, however since returning home have been having increased trouble managing his sugars. Outpatient provider has been trying to titrate his insulin dosages. Admission and Anticipated Discharge Date Admission Date: September 25, 2025 Subjective Patient states still a fair amount of pain in his left foot. States that sugars have not been well-controlled since transitioning to insulin about a month ago. Physical Exam Physical Exam: Constitutional: Alert, nontoxic HEENT: Mucous membranes moist. Lungs: Clear to auscultation, decreased, no wheezes rales or rhonchi CV: S1-S2, irregular, Abdomen: Soft, nontender, nondistended Extremities: Left foot with some edema, tenderness, warmth, redness Neuro: No focal deficits Psych: Cooperative, normal mood Results & Data Results & Data Vital Signs (Past 12 Hours) Vital Signs Temp Pulse Pulse Pulse Resp BP Pulse Ox 09/26/25 08:00 36.7 C 93 H 18 121/71 95 09/26/25 02:03 36.6 C 89 18 103/65 94 09/25/25 23:14 110 H 09/25/25 23:10 36.2 C L 82 18 135/72 97 09/25/25 22:48 86 22 111/76 91 O2 Del Method 09/26/25 08:00 Room Air 09/26/25 02:03 Room Air 09/25/25 23:14 09/25/25 23:10 Room Air 09/25/25 22:48 Room Air Diagnostic Findings Reviewed imaging, laboratory and diagnostic studies. Pertinent findings as below. WBCs 11.8 Hemoglobin 11.2 Sodium [address] foot reviewed report. No definitive osteomyelitis Blood culture pending
[2025-09-26] MEDS: ACETAMINOPHEN 500 MG TAB PO SCH (13:56)
[2025-09-26] MEDS: ROSUVASTATIN CALCIUM 20 MG TAB PO SCH (21:32)
[2025-09-27 08:11] LABS: Anion Gap 5.0 (3-11); Blood Urea Nitrogen 27.0 mg/dl (6-23); Calcium 8.8 mg/dl (8.6-10.3); Carbon Dioxide 24.0 mmol/L (21-32); Chloride 107.0 mmol/L (98-107); Creatinine Clr Calc Pharmacy 48.2 ml/min; Glucose 156.0 mg/dl (70-99(Fasting)); Potassium 4.7 mmol/L (3.5-5.1); Sodium 136.0 mmol/L (136-145)
[2025-09-27] MEDS: LANTUS PER UNIT CHARGE SQ SCH (09:43)
--- NOTE | 2025-09-27 11:21 | Hospitalist Progress Note ---
Date of Service September 27, 2025 Assessment & Plan (1) Cellulitis of foot associated with diabetes mellitus: (2) Pseudohyponatremia: Plan: Resolved (3) Invasive aspergillosis: Plan: Present on admission (4) Permanent atrial fibrillation: (5) Diabetes mellitus type 2, insulin dependent: (6) COPD with emphysema: (7) HTN, goal below 140/90: (8) Chronic steroid use: (9) Polymyalgia rheumatica: Plan Patient 79-year-old gentleman with significant left foot cellulitis in the setting of uncontrolled diabetes Patient responding to antibiotic treatment, anticipate 1-2 more days of IV antibiotics and being able to transition to oral antibiotics Continue pain control, patient is motivated to try and get back home. [facility] hopefully he is pain and ability to ambulate will improve next 1 to 2 days that he can return home with possibly home health care Adjust long-acting insulin for better glucose control, anticipate he will need his Lantus dose increased and adjusted for when he is discharged home. His glucoses were quite uncontrolled prior to admission Continue voriconazole for Aspergillus that was present on admission Continue other medical treatments Admission and Anticipated Discharge Date Admission Date: September 25, 2025 Subjective Patient reports that foot is still fairly painful but a little bit better. Was able to ambulate to bathroom with some assistance. Physical Exam Physical Exam: Constitutional: Alert, nontoxic HEENT: Mucous membranes moist. Lungs: Decreased breath sounds, no wheezes CV: S1-S2, irregular Abdomen: Soft, nontender, nondistended Extremities: Left foot slightly less swollen, less fiery red, less warm, still quite tender to palpation Neuro: No focal deficits Psych: Cooperative, normal mood Results & Data Results & Data Vital Signs (Past 12 Hours) Vital Signs Temp Pulse Resp BP Pulse Ox O2 Del Method 09/27/25 07:50 36.3 C L 103 H 16 133/76 95 Room Air 09/27/25 02:33 36.9 C 92 H 16 128/62 96 Room Air Diagnostic Findings Reviewed imaging, laboratory and diagnostic studies. Pertinent findings as below. Electrolytes stable Creatinine 1.24 Glucoses significantly improved
[2025-09-28 08:18] LABS: Hematocrit (blood only) 36.0 % (42.0-52.0); Hemoglobin 11.5 g/dL (14.0-18.0); Mean Corpuscular Hemoglobin 29.4 pg (25.0-34.0); Mean Corpuscular Volume 92.1 fL (80.0-100.0); Platelet Count 188 K/uL (130-400); RDW Standard Deviation 51.7 fL (36.4-46.3); Red Blood Count 3.91 M/uL (4.70-6.10); White Blood Count 9.63 K/ul (4.8-10.8)
[2025-09-28 08:36] LABS: Anion Gap 5.0 (3-11); Blood Urea Nitrogen 29.0 mg/dl (6-23); Calcium 9.3 mg/dl (8.6-10.3); Carbon Dioxide 28.0 mmol/L (21-32); Chloride 106.0 mmol/L (98-107); Creatinine Clr Calc Pharmacy 49.0 ml/min; Glucose 92.0 mg/dl (70-99(Fasting)); Potassium 5.0 mmol/L (3.5-5.1); Sodium 139.0 mmol/L (136-145)
--- NOTE | 2025-09-28 09:57 | Hospitalist Progress Note ---
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 Rehab recommended. Patient stated he is open to going to [facility]. CM notified Continue apixaban and metoprolol for AFib Patient reported he was on lantus 34U daily and aspart 6U AC HbA1c from 08/25/25 was 11.5 Currently on lantus 30U BID inpatient Continue ISS Will need med adjustment on discharge Patient is on chronic prednisone for PMR Continue voriconazole for recent Aspergillus Pneumonia DVT ppx- Apixaban Code status - DNR I spent a total of 45 minutes coordinating, documenting and providing care for this patient excluding time spent in performance of separately billed services Admission and Anticipated Discharge Date Admission Date: September 25, 2025 Subjective Patient seen and examined Reports leg foot pain and swelling are improving but still has difficulty putting weight on it Denied any fever, chills, nausea, vomiting Denied any other complaints on ROS Physical Exam Constitutional: + well hydrated; no acute distress Eyes: PERRL, conjunctivae normal, anicteric sclerae ENMT: external ear and nose normal, oropharynx normal Respiratory: normal respiratory effort, lungs clear to auscultation Cardiovascular: Irregularly irregular S1 S2 Gastrointestinal (Abdomen): normal bowel sounds, soft, nontender, no hepatosplenomegaly Musculoskeletal: Left foot tenderness and swelling over dorsal surface and distal ankle Neurologic: PERRL, EOMI, accommodation nl, no face palsy, no dysarthria Psychiatric: A+Ox3, euthymic affect Results & Data Results & Data Vital Signs (Past 12 Hours) Vital Signs Temp Pulse Resp BP Pulse Ox O2 Del Method 09/28/25 08:05 36.6 C 90 16 146/74 H 97 Room Air 09/28/25 03:40 36.5 C 80 18 130/71 97 Room Air Laboratory Results Abnormal lab results 09/27/25 09/27/25 09/27/25 Range/Units 12:15 16:54 20:17 RBC (4.70-6.10) M/uL Hgb (14.0-18.0) g/dL Hct (42.0-52.0) % MCHC (32.0-36.0) g/dL RDW Std Deviation (36.4-46.3) fL RDW Coeff of Roverto (11.5-14.5) % BUN (6-23) mg/dl BUN/Creatinine Ratio (10-20) POC Glucose 189 H 133 H 230 H (70-99) mg/dl 09/28/25 Range/Units 07:52 RBC 3.91 L (4.70-6.10) M/uL Hgb 11.5 L (14.0-18.0) g/dL Hct 36.0 L (42.0-52.0) % MCHC 31.9 L (32.0-36.0) g/dL RDW Std Deviation 51.7 H (36.4-46.3) fL RDW Coeff of Roverto 15.4 H (11.5-14.5) % BUN 29 H (6-23) mg/dl BUN/Creatinine Ratio 23.8 H (10-20) POC Glucose (70-99) mg/dl
--- NOTE | 2025-09-29 05:54 | Electrocardiogram Report ---
Test Reason : Blood Pressure : */* mmHG Vent. Rate : 112 BPM Atrial Rate : * BPM P-R Int : * ms QRS Dur : 88 ms QT Int : 334 ms P-R-T Axes : * -6 28 degrees QTcB Int : 455 ms Atrial fibrillation with rapid ventricular response with premature ventricular or aberrantly conducte d complexes Nonspecific ST abnormality Abnormal ECG When compared with ECG of 24-Aug-2025 07:28, Premature ventricular complexes are now Present Confirmed by Janes Chu ([id number]) on 09/29/2025 5:53:39 AM Referred By: REFERRED SELF Confirmed By: Janes Chu
[2025-09-29 11:00] LABS: Hematocrit (blood only) 37.4 % (42.0-52.0); Hemoglobin 12.1 g/dL (14.0-18.0); Mean Corpuscular Hemoglobin 29.5 pg (25.0-34.0); Mean Corpuscular Volume 91.2 fL (80.0-100.0); Platelet Count 196 K/uL (130-400); RDW Standard Deviation 51.8 fL (36.4-46.3); Red Blood Count 4.10 M/uL (4.70-6.10); White Blood Count 8.69 K/ul (4.8-10.8)
[2025-09-29 11:10] LABS: Anion Gap 7.0 (3-11); Blood Urea Nitrogen 32.0 mg/dl (6-23); Calcium 9.0 mg/dl (8.6-10.3); Carbon Dioxide 26.0 mmol/L (21-32); Chloride 101.0 mmol/L (98-107); Creatinine Clr Calc Pharmacy 50.7 ml/min; Glucose 256.0 mg/dl (70-99(Fasting)); Potassium 4.6 mmol/L (3.5-5.1); Sodium 134.0 mmol/L (136-145)
--- NOTE | 2025-09-29 12:49 | Hospitalist Progress Note ---
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 Rehab recommended. Continue apixaban and metoprolol for AFib Patient reported he was on lantus 34U daily and aspart 6U AC HbA1c from 08/25/25 was 11.5 Currently on lantus 30U BID inpatient Continue ISS Will need med adjustment on discharge Patient is on chronic prednisone for PMR Continue voriconazole for recent Aspergillus Pneumonia DVT ppx- Apixaban Code status - DNR I spent a total of 35 minutes coordinating, documenting and providing care for this patient excluding time spent in performance of separately billed services Admission and Anticipated Discharge Date Admission Date: September 25, 2025 Subjective Patient seen and examined Reports improving pain and swelling but still reports ambulatory dysfunction with the left foot No other complaints Physical Exam Constitutional: + well hydrated; no acute distress Eyes: PERRL, conjunctivae normal, anicteric sclerae ENMT: external ear and nose normal, oropharynx normal Respiratory: normal respiratory effort, lungs clear to auscultation Cardiovascular: Rate/Rhythm: + irregularly irregular Gastrointestinal (Abdomen): normal bowel sounds, soft, nontender, no hepatosplenomegaly Musculoskeletal: Left foot tenderness and swelling Neurologic: PERRL, EOMI, accommodation nl, no face palsy, no dysarthria Psychiatric: A+Ox3, euthymic affect Results & Data Results & Data Vital Signs (Past 12 Hours) Vital Signs Temp Pulse Resp BP Pulse Ox O2 Del Method 09/29/25 11:55 36.4 C L 86 18 148/81 H 91 Room Air 09/29/25 07:46 36.6 C 77 18 156/85 H 93 Room Air 09/29/25 03:21 36.4 C L 91 H 18 135/76 97 Room Air Laboratory Results Abnormal lab results 09/28/25 09/28/25 09/29/25 Range/Units 17:11 20:12 08:18 RBC (4.70-6.10) M/uL Hgb (14.0-18.0) g/dL Hct (42.0-52.0) % RDW Std Deviation (36.4-46.3) fL RDW Coeff of Roverto (11.5-14.5) % Sodium (136-145) mmol/L BUN (6-23) mg/dl BUN/Creatinine Ratio (10-20) Glucose (70-99(Fasting)) mg/dl POC Glucose 187 H 227 H 134 H (70-99) mg/dl 09/29/25 09/29/25 Range/Units 10:38 12:13 RBC 4.10 L (4.70-6.10) M/uL Hgb 12.1 L (14.0-18.0) g/dL Hct 37.4 L (42.0-52.0) % RDW Std Deviation 51.8 H (36.4-46.3) fL RDW Coeff of Roverto 15.4 H (11.5-14.5) % Sodium 134 L (136-145) mmol/L BUN 32 H (6-23) mg/dl BUN/Creatinine Ratio 27.1 H (10-20) Glucose 256 H (70-99(Fasting)) mg/dl POC Glucose 195 H (70-99) mg/dl
[2025-09-30 09:43] LABS: Hematocrit (blood only) 36.1 % (42.0-52.0); Hemoglobin 11.7 g/dL (14.0-18.0); Mean Corpuscular Hemoglobin 29.8 pg (25.0-34.0); Mean Corpuscular Volume 91.9 fL (80.0-100.0); Platelet Count 220 K/uL (130-400); RDW Standard Deviation 52.0 fL (36.4-46.3); Red Blood Count 3.93 M/uL (4.70-6.10); White Blood Count 8.21 K/ul (4.8-10.8)
[2025-09-30 10:04] LABS: Anion Gap 6.0 (3-11); Blood Urea Nitrogen 34.0 mg/dl (6-23); Calcium 9.0 mg/dl (8.6-10.3); Carbon Dioxide 27.0 mmol/L (21-32); Chloride 101.0 mmol/L (98-107); Creatinine Clr Calc Pharmacy 52.5 ml/min; Glucose 224.0 mg/dl (70-99(Fasting)); Potassium 4.9 mmol/L (3.5-5.1); Sodium 134.0 mmol/L (136-145)
--- NOTE | 2025-09-30 12:32 | Hospitalist Progress Note ---
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 Rehab recommended. Per CM note, SNF cannot take patient before thursday Continue apixaban and metoprolol for AFib Patient reported he was on lantus 34U daily and aspart 6U AC HbA1c from 08/25/25 was 11.5 Currently on lantus 30U BID inpatient Continue ISS Glycemic pharm c/s Will need med adjustment on discharge Patient is on chronic prednisone for PMR Continue voriconazole for recent Aspergillus Pneumonia DVT ppx- Apixaban Code status - DNR I spent a total of 35 minutes coordinating, documenting and providing care for this patient excluding time spent in performance of separately billed services Admission and Anticipated Discharge Date Admission Date: September 25, 2025 Subjective Patient seen and examined Sitting in chair Reports leg pain is improving No other complaints Physical Exam Constitutional: + well hydrated; no acute distress Eyes: PERRL, conjunctivae normal, anicteric sclerae ENMT: external ear and nose normal, oropharynx normal Respiratory: normal respiratory effort, lungs clear to auscultation Cardiovascular: Rate/Rhythm: + irregularly irregular Gastrointestinal (Abdomen): normal bowel sounds, soft, nontender, no hepat osplenomegaly Musculoskeletal: Left foot erythema and tenderness Neurologic: PERRL, EOMI, accommodation nl, no face palsy, no dysarthria Psychiatric: A+Ox3, euthymic affect Results & Data Results & Data Vital Signs (Past 12 Hours) Vital Signs Temp Pulse Resp BP Pulse Ox O2 Del Method 09/30/25 07:28 36.8 C 87 16 164/85 H 96 Room Air Laboratory Results Abnormal lab results 09/29/25 09/29/25 09/30/25 Range/Units 17:20 20:23 07:50 RBC (4.70-6.10) M/uL Hgb (14.0-18.0) g/dL Hct (42.0-52.0) % RDW Std Deviation (36.4-46.3) fL RDW Coeff of Roverto (11.5-14.5) % Sodium (136-145) mmol/L BUN (6-23) mg/dl BUN/Creatinine Ratio (10-20) Glucose (70-99(Fasting)) mg/dl POC Glucose 149 H 235 H 121 H (70-99) mg/dl 09/30/25 09/30/25 Range/Units 09:01 11:28 RBC 3.93 L (4.70-6.10) M/uL Hgb 11.7 L (14.0-18.0) g/dL Hct 36.1 L (42.0-52.0) % RDW Std Deviation 52.0 H (36.4-46.3) fL RDW Coeff of Roverto 15.3 H (11.5-14.5) % Sodium 134 L (136-145) mmol/L BUN 34 H (6-23) mg/dl BUN/Creatinine Ratio 29.8 H (10-20) Glucose 224 H (70-99(Fasting)) mg/dl POC Glucose 196 H (70-99) mg/dl
[2025-09-30] MEDS ORDERED: PHARMACY GLYCEMIC MGMT CONSULT PRN (15:37)
--- NOTE | 2025-10-01 10:10 | Hospitalist Progress Note ---
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 Rehab recommended. Will f/u CM tomorrow about placement Continue apixaban and metoprolol for AFib Patient reported he was on lantus 34U daily and aspart 6U AC HbA1c from 08/25/25 was 11.5 Currently on lantus 30U BID inpatient Continue ISS Glycemic pharm c/s Will need med adjustment on discharge Patient is on chronic prednisone for PMR Continue voriconazole for recent Aspergillus Pneumonia DVT ppx- Apixaban Code status - DNR I spent a total of 35 minutes coordinating, documenting and providing care for this patient excluding time spent in performance of separately billed services Admission and Anticipated Discharge Date Admission Date: September 25, 2025 Subjective Patient seen and examined Reports he walked around some yesterday but noted some increased pain in left foot on waking this AM No other complaints Physical Exam Constitutional: + well hydrated; no acute distress Eyes: PERRL, conjunctivae normal, anicteric sclerae ENMT: external ear and nose normal, oropharynx normal Respiratory: normal respiratory effort, lungs clear to auscultation Cardiovascular: Rate/Rhythm: + irregularly irregular Gastrointestinal (Abdomen): normal bowel sounds, soft, nontender, no hepatosplenomegaly Musculoskeletal: Left foot erythema and tenderness Neurologic: PERRL, EOMI, accommodation nl, no face palsy, no dysarthria Psychiatric: A+Ox3, euthymic affect Results & Data Results & Data Vital Signs (Past 12 Hours) Vital Signs Temp Pulse Resp BP Pulse Ox O2 Del Method 10/01/25 07:50 36.3 C L 76 16 127/75 96 Room Air Laboratory Results Abnormal lab results 09/30/25 09/30/25 10/01/25 Range/Units 16:55 20:28 07:40 POC Glucose 169 H 228 H 119 H (70-99) mg/dl 10/01/25 Range/Units 11:43 POC Glucose 172 H (70-99) mg/dl
[2025-10-02 05:19] LABS: Anion Gap 5 (3-11); Blood Urea Nitrogen 44 mg/dl (6-23); Calcium 9.5 mg/dl (8.6-10.3); Carbon Dioxide 27 mmol/L (21-32); Chloride 101 mmol/L (98-107); Creatinine Clr Calc Pharmacy 44.3 ml/min; Glucose 265 mg/dl (70-99(Fasting)); Sodium 133 mmol/L (136-145)
[2025-10-02] MEDS: GADOBUTROL 65ML VIAL IV ONE (13:06)
--- NOTE | 2025-10-02 13:52 | Magnetic Resonance Report ---
MR foot LT wo/w con HISTORY: 79 years-old Male Reassess left foot and ankle infection. Amb dysfxn chronic pain of the le ft foot and ankle with possible soft tissue infection COMPARISON: Left ankle MR same day, CT left foot 09/25/2025 TECHNIQUE: Multiplanar multisequence MRI left foot was obtained with and without IV contrast. FINDINGS: There is moderate diffuse subcutaneous edema. No discrete fluid collection is identified. The imaged flexor and extensor tendons appear intact. The Lisfranc ligament is intact. 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 No acute fracture or dislocation identif ied. There is moderate marrow edema involving the mid to distal aspects of the first distal phalanx w hich mostly involves the distal phalangeal thelma. There is mildly decreased T1 signal within this dis tribution with mild enhancement. There is an apparent wound of the distal great toe with subcutaneous edema. Soft tissue thickening with edema also noted beneath the first nail bed. No additional abnorm al enhancement or bone marrow edema identified. IMPRESSION: 1. Findings suggestive of great toe cellulitis with paronychia. Additionally, there is marrow edema i nvolving the first distal phalanx which may represent osteitis versus developing osteomyelitis. 2. Nonspecific diffuse subcutaneous edema of the foot. ACT 112: Negative or not required by law. The above report was generated using voice recognition software. It may contain grammatical, syntax o r spelling errors. Electronically signed by: Audi Griffiths M.D. 10/02/2025 1:51 PM
--- NOTE | 2025-10-02 13:52 | Magnetic Resonance Report ---
MR ankle LT wo/w con CLINICAL HISTORY: 79 years-old Male with Reassess left ankle. Amb dysfxn/Cellulits. COMPARISON: MR left foot same day and also CT left foot 09/25/2025. TECHNIQUE: Multiplanar, multi sequence MRI of the left ankle was performed with and without IV. FINDINGS: LATERAL LIGAMENT COMPLEX: The anterior talofibular ligament, calcaneofibular ligament and posterior t alofibular ligaments are intact. SYNDESMOTIC LIGAMENTS: The anterior-inferior tibiofibular ligament, interosseous membrane and posteri or-inferior tibiofibular ligaments are intact. DELTOID LIGAMENT COMPLEX: The superficial and deep components of the deltoid ligament are intact. ANTERIOR TENDONS: Mild tendinosis and tenosynovitis of the intact tibialis anterior. The extensor elizabeth lucis longus and extensor digitorum longus tendons are normal in position, morphology and signal. LATERAL TENDONS: The peroneus longus and brevis tendons are intact, with mild associated tendinosis a nd tenosynovitis. MEDIAL TENDONS: Mild tendinosis and tenosynovitis of the tibialis posterior. The flexor digitorum xenia rhonda and flexor hallucis longus tendons are intact. PLANTAR FASCIA: Chronic fasciitis of the medial cord plantar fascia. No acute tear or plantar fascial nodule. ACHILLES TENDON: Mild tendinosis without acute tear identified. Trace fluid within the retrocalcaneal bursa. SINUS TARSI: Nonspecific edema within the sinus tarsi. The interosseous and cervical ligaments are no rmal. The navicular-calcaneal (spring) ligament is without acute abnormality. TARSAL TUNNEL: There are no obstructing lesions within the tarsal tunnel. BONE MARROW: Type II accessory navicular. Bone marrow is normal in signal without evidence of fractur e, marrow contusion or marrow occupying lesion. JOINT SPACES: Large plantar calcaneal osteophyte. [place] osteoarthritis of the tibiotalar j oint with mild subcortical cystic changes. A subcentimeter osteochondral defect of the lateral talar dome. Mostly mild osteoarthritis of the midfoot. SOFT TISSUES: Moderate nonspecific diffuse subcutaneous edema. No discrete fluid collection is seen. No abnormal enhancement. IMPRESSION: 1. No acute osseous abnormality, including there is no MR evidence of acute osteomyelitis. 2. Nonspecific diffuse subcutaneous edema. Differential considerations include cellulitis, lymphedema or venous stasis. 3. No abscess. 4. No abnormal enhancement. ACT 112: Negative or not required by law. The above report was generated using voice recognition software. It may contain grammatical, syntax o r spelling errors. Electronically signed by: Audi Griffiths M.D. 10/02/2025 1:51 PM
--- NOTE | 2025-10-02 15:03 | Pharmacy Report ---
Pharmacy Glycemic Short Note 2 - Date of Service October 02, 2025 - Glycemic Short BSG Results (Last 24 hours): 10/01/25 10/01/25 10/02/25 16:21 20:29 04:39 Glucose 265 H POC Glucose 178 H 173 H 10/02/25 10/02/25 07:45 11:46 Glucose POC Glucose 180 H 136 H OUTPATIENT ANTIDIABETIC REGIMEN: * Tresiba 34 units SQ Q AM * insulin aspart 6 units SQ AC * tirzepatide 2.5mg SQ weekly HbA1c: 11.5% on 08/25/25 ASSESSMENT: * Mitchel is an 79 year old male who was admitted 09/25 with lower extremity cellulitis in the setting of uncontrolled diabetes. Pharmacy was consulted for glycemic management on 09/30. * Insulin has been titrated up during this admission. Lantus is currently 30 units SQ BID and he is ordered a weight based bolus insulin regimen with a stress between 2 and 3. This regimen seems to be better controlling his blood glucose. Although still above goal, BSGs have been < 200mg/dL. Will continue current regimen without change for now. * He is on chronic prednisone 5mg PO BID as well as cefepime and PO doxycycline for cellulitis. PLAN FOR INPATIENT GLYCEMIC CONTROL: * Hold outpatient diabetes medications * Basal insulin * Lantus 30 units SQ BID * Bolus insulin * NovoLog per scale ACHS or Q6hrs while NPO * Goal Range: Low 110 mg/dL - High 140 mg/dL * Correction Factor: 25 mg/dL/unit * Nutritional / Prandial insulin per carb ratio of 1 unit per 10 grams CHO consumed
--- NOTE | 2025-10-02 15:38 | Hospitalist Progress Note ---
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 Rehab recommended. Patient declining discharge to rehab at this time Explained to patient that he is having pain from the cellulitis and it is taking sometime to heal which is part of the reason for rehab as well He also has DM and PMR which may be affecting his healing and mobility He wants to get further eval MRI foot/ankle and Podiatry consult ordered Continue apixaban and metoprolol for AFib Patient reported he was on lantus 34U daily and aspart 6U AC HbA1c from 08/25/25 was 11.5 Currently on increased lantus 30U BID inpatient Continue ISS Glycemic pharm on board to optimize glycemic control Will need med adjustment on discharge Patient is on chronic prednisone for PMR Continue voriconazole for recent Aspergillus Pneumonia DVT ppx- Apixaban Code status - DNR I called son and updated him. Answered all his questions I spent a total of 50 minutes coordinating, documenting and providing care for this patient excluding time spent in performance of separately billed services Admission and Anticipated Discharge Date Admission Date: September 25, 2025 Subjective Patient seen and examined Still reports pain in left foot and ankle Stated he does not want to go to rehab/home today until he feels better Stated he cannot put much weight on the foot RN reports he has been able to walk to bathroom/antalgic gait Denied other complaints on ROS Physical Exam Constitutional: + well hydrated; no acute distress Eyes: PERRL, conjunctivae normal, anicteric sclerae ENMT: external ear and nose normal, oropharynx normal Respiratory: normal respiratory effort, lungs clear to auscultation Cardiovascular: Rate/Rhythm: + irregularly irregular Gastrointestinal (Abdomen): normal bowel sounds, soft, nontender, no hepatosplenomegaly Musculoskeletal: Erythema on dorsum on left foot and lower leg, +tenderness Improved swelling No tenderness/swelling across toes Neurologic: PERRL, EOMI, accommodation nl, no face palsy, no dysarthria Psychiatric: A+Ox3, euthymic affect Results & Data Results & Data Vital Signs (Past 12 Hours) Vital Signs Temp Pulse Resp BP Pulse Ox O2 Del Method 10/02/25 14:56 36.4 C L 87 16 160/84 H 96 Room Air 10/02/25 07:31 36.6 C 89 17 128/73 96 Room Air 10/02/25 07:25 Room Air Laboratory Results Abnormal lab results 10/01/25 10/02/25 10/02/25 Range/Units 20:29 04:39 07:45 Sodium 133 L (136-145) mmol/L BUN 44 H (6-23) mg/dl BUN/Creatinine Ratio 32.6 H (10-20) Glucose 265 H (70-99(Fasting)) mg/dl POC Glucose 173 H 180 H (70-99) mg/dl C-Reactive Protein 3.95 H (0-0.5) mg/dl 10/02/25 10/02/25 Range/Units 11:46 17:07 Sodium (136-145) mmol/L BUN (6-23) mg/dl BUN/Creatinine Ratio (10-20) Glucose (70-99(Fasting)) mg/dl POC Glucose 136 H 221 H (70-99) mg/dl C-Reactive Protein (0-0.5) mg/dl
--- NOTE | 2025-10-02 17:04 | Podiatry Consultation ---
Date of Consultation October 02, 2025 Assessment & Plan (1) Lower extremity cellulitis: Laterality: left Qualified Code(s): L03.116 - Cellulitis of left lower limb (2) Diabetes mellitus type 2, insulin dependent: (3) Left foot pain: Plan Patient examined and evaluated. MR imaging reviewed extensively. There is no clinical evidence of osteomyelitis,so the MR findings could not correlated cli nically. No surgical intervention planned, as there is no procedure that would likely be beneficial. We would generally recommend two weeks of oral antibiotics for this type of cellulitis, but would defer to ID who has been consulted as well. If this is more metabolic and inflammation, rather than infectious, we would usually recommend a medrol dosepak for his level of pain. There is no lab evidence for gout, but uric acid can be artificially low during acute attack. Could attempt colchicine outpatient if pain fails to improve. Further, if antibiotics fail to improve his symptoms, we could perform a bone biopsy outpatient. For now, he can d/c to rehab when stable per medicine. We are happy to follow-up with him after discharge from rehab for further care as needed. History of Present Illness Reason for Consultation: Left foot/ankle pain/cellulitis Rule out Osteomyelitis Attending Physician: Yee Ramos MD History of Present Illness Patient seen at bedside this evening. He states that he has had left foot and ankle pain for the last week or two, which led him to presenting to [facility] ED for treatment around a week ago. Since then, he has been treated for cellulitis. He has continued pain and was scheduled for discharge to rehab, but had an MRI that revealed potential osteomyelitis to the great toe. He denies any trauma or injury to either the toe or foot and states that the current point of maximal tenderness is broad and vague but certainly worse at the ankle and leg, with no pain or minimal pain to the toes. He has had recent infections otherwise, including pneumonia last month. Otherwise, he denies any history of ingrowing toenails requiring treatment or any foot/ankle concerns. Denies any foot ulcerations or puncture wounds. Allergies Allergy/AdvReac Type Severity Reaction Status Date / Time oxycodone Allergy Intermediate WHEEZING, Verified 09/25/25 20:39 maybe trouble breathing Home Medications Medication Instructions Recorded Confirmed Type alendronate 70 mg tablet (Fosamax) 70 mg PO WK 12/25/21 09/25/25 History duloxetine 20 mg capsule,delayed 20 mg PO QPM 12/25/21 09/25/25 History release prednisone 5 mg tablet 5 mg PO BID 12/25/21 09/25/25 History lancets 33 gauge (OneTouch Delica 07/26/25 07/26/25 History Plus Lancet) tirzepatide 2.5 mg/0.5 mL 2.5 mg subcut WK 07/26/25 09/25/25 History subcutaneous pen injector (Wilverunteresaro) insulin degludec 200 unit/mL (3 34 unit (0.17 mL) subcut QAM #0 mL 08/29/25 09/25/25 Rx mL) subcutaneous pen (Tresiba FlexTouch U-200 insulin) voriconazole 200 mg tablet 200 mg PO BID 70 days #140 tabs 08/29/25 09/25/25 Rx acetaminophen 500 mg tablet 500 - 1,000 mg PO Q6H PRN Pain 09/25/25 09/25/25 History apixaban 2.5 mg tablet (Eliquis) 2.5 mg PO BID 09/25/25 09/25/25 History cephalexin 500 mg capsule 500 mg PO TID 09/25/25 09/25/25 History cholecalciferol (vitamin D3) 50 50 mcg PO DAILY 09/25/25 09/25/25 History mcg (2,000 unit) capsule (Vitamin D3) cyanocobalamin (vitamin B-12) 500 500 mcg PO DAILY 09/25/25 09/25/25 History mcg tablet (Vitamin B-12) folic acid 1 mg tablet 1 mg PO QAM 09/25/25 09/25/25 History insulin aspart U-100 100 unit/mL 6 unit subcut AC 09/25/25 09/28/25 History (3 mL) subcutaneous pen (Novolog FlexPen U-100 Insulin aspart) metoprolol tartrate 50 mg tablet 50 mg PO BID 09/25/25 09/25/25 History rosuvastatin 20 mg tablet 20 mg PO QPM 09/25/25 09/25/25 History tramadol 50 mg tablet 50 mg PO Q8H PRN Pain 09/25/25 09/25/25 History Patient History Medical History (Updated 10/02/25 @ 17:03 by Haroon Razo DPM) Hx of non-ST elevation myocardial infarction (NSTEMI) 10/2024 [facility] admission: type II NSTEMI vs demand ischemia Bronchiectasis 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 History of recent hospitalization pt has had multiple recent hospitalizations; most recent: [facility] 07/02-07/04/25: pt with vomiting 2/2 starting GLP1 and possible aspiration PNA; required 2L O2 NC for short time but weaned; D/C on Augmentin Osteoporosis Aspiration pneumonitis hx hospitalization [facility] 10/2024. Chronic steroid use for PMR Polymyalgia rheumatica takes prednisone BID to manage. Osteoarthritis Diabetes mellitus, type 2 On anticoagulant therapy coumadin for afib Hyperlipidemia Hypertension Atrial fibrillation Surgical History History of left cataract surgery History of right cataract surgery History of arthroscopy of left shoulder S/P left knee arthroscopy History of colonoscopy H/O eye surgery bilateral tear duct procedures to place a "drain" Family History Other No family history of adverse response to anesthesia Social History Smoking Status: Never smoker Tobacco Type: Cigarettes Age Started Using Tobacco: 12; Age Quit Using Tobacco: 38; packs per day: 2; Second Hand Exposure: No; Do You Dip or Chew Tobacco: No; Hx Alcohol Use: No Hx Substance Use: No Preferred Language: Korean Communication Ability: Effective Information Analyst Required: No Beliefs That Will Affect Care: None marital status: Current Living Situation: Spouse Current Living Situation Comment: one story house with one cat Feels Safe at Home: Yes Assistive Devices: Cane and Walker Review of Systems Review of Systems: All systems reviewed & are unremarkable except as noted in HPI & below Constitutional: + malaise and + weakness; no fever, no c hills and no fatigue Eyes: no problem reported Ear, Nose, Mouth, Throat: no problem reported Respiratory: no problem reported Cardiovascular: + edema; no problem reported Gastrointestinal: no nausea, no vomiting and no problem reported Musculoskeletal: no problem reported Integumentary: + erythema; no skin ulcer and no wounds Neurologic: + paresthesia; no generalized weakness Allodynia/Pain out of proportion to touch LLE Psychiatric: no problem reported Physical Exam Physical Exam: Lower extremity focused exam: DP/PT pulses faintly palpable. CFT brisk to the digits. Atrophic skin changes noted, dystrophic nails b/l, consistent with age. Hair growth is absent. Protective sensation intact. No evidence of skin trauma, no open wounds, no portal for infection. Left lower extremity is diffusely erythematous from midfoot to mid tibia, worse anteriorly. Point of maximal tenderness radiates from mid tibia to the ankle. Pain is drastically amplified, with severe grimacing pain on palpation of the foot and ankle, though toes are less sensitive. No palpable fluctuance. No ascending erythema/streaking along tendon sheaths. MR reveals bone marrow edema of hallux, which is significantly visualized in all planes, though does not correlate with clinical exam findings. This could be the result of an unknown stubbing injury, but does not correlate with his infectious symptoms/pain. Constitutional: WD/WN, vitals as above + ill appearing and average body habitus; no acute distress Eyes: PERRL, conjunctivae normal, anicteric sclerae ENMT: external ear and nose normal, oropharynx normal Mouth: + poor dentition Neck: trachea midline, no thyromegaly normal visual inspection Respiratory: normal respiratory effort; no respiratory distress Cardiovascular: Rate/Rhythm: regular rate and regular rhythm Vessels: posterior tibial pulses present and dorsalis pedis pulses present Extremities: normal capillary refill; no calf tenderness, no pedal edema and no edema Chest (Breasts): Chest: normal inspection of chest Gastrointestinal (Abdomen): Inspection/Auscultation: abdomen normal to inspection Percussion/Palpation: + abdomen tender and abdomen soft Musculoskeletal: no cyanosis or clubbing, extremities motor strength 5/5 Head/Neck/Chest: normocephalic and head atraumatic Extremities: extremities normal to inspection Skin: + skin atrophy, + erythema and + nails d ystrophic Neurologic: awake; no focal motor deficits Psychiatric: A+Ox3, euthymic affect Results & Data Vital Signs (Past 12 Hours) Vital Signs Temp Pulse Resp BP Pulse Ox O2 Del Method 10/02/25 14:56 36.4 C L 87 16 160/84 H 96 Room Air 10/02/25 07:31 36.6 C 89 17 128/73 96 Room Air 10/02/25 07:25 Room Air
[2025-10-03 01:24] VITALS: TEMP 97.9
[2025-10-03 07:14] VITALS: BP 109/71; PULSE 105; RESP 18; O2SAT 97
[2025-10-03 07:53] LABS: Hematocrit (blood only) 38.6 % (42.0-52.0); Hemoglobin 12.6 g/dL (14.0-18.0); Mean Corpuscular Hemoglobin 29.9 pg (25.0-34.0); Mean Corpuscular Volume 91.7 fL (80.0-100.0); Platelet Count 335 K/uL (130-400); RDW Standard Deviation 50.3 fL (36.4-46.3); Red Blood Count 4.21 M/uL (4.70-6.10); White Blood Count 9.67 K/ul (4.8-10.8)
[2025-10-03 08:09] LABS: Anion Gap 6.0 (3-11); Blood Urea Nitrogen 42.0 mg/dl (6-23); Calcium 9.4 mg/dl (8.6-10.3); Carbon Dioxide 28.0 mmol/L (21-32); Chloride 104.0 mmol/L (98-107); Creatinine Clr Calc Pharmacy 49.8 ml/min; Glucose 84.0 mg/dl (70-99(Fasting)); Potassium 4.8 mmol/L (3.5-5.1); Sodium 138.0 mmol/L (136-145)
[2025-10-03] MEDS: LANTUS PER UNIT CHARGE SQ SCH (08:12)
[2025-10-03] MEDS ORDERED: LANTUS PER UNIT CHARGE SQ SCH (09:00)
--- NOTE | 2025-10-03 12:04 | Discharge Summary ---
Date of Service October 03, 2025 Admission HPI Per Admitting Provider Patient is a 79 year old male with PMH chronic atrial fibrillation on Eliquis, DM type II, HTN, hyperlipidemia,PMR on chronic prednisone steroid-induced osteoporosis, and diabetic retinopathy, COPD, and other problems who presents to the ED with left foot pain and hyperglycemia x several days. Patient developed left foot pain and swelling 2 days ago that progressed to inability to wear weight to the left foot. Pain characterized by a burning sensation and occasional spasms; he took tramadol this afternoon with only some relief. No fevers, chills, falls, lacerations to the left foot. He went to his PCP today for evaluation, prescribed keflex, but has not taken any doses. Imaging done outpatient today included: DVT to left leg negative DVT, Left Foot Xray negative for acute fracture. He has neuropathy with minimal sensation to the bottom of his foot. Currently unable to move toes and using walker for ambulation. Denies fever, chills, weight loss, weakness, headache, cognitive changes, vision/hearing changes, chest pain, SOB, difficulty breathing, urinary concerns, N/V/D, skin rashes, lesions, bleeding, bruising. In the emergency department, patient was tachycardic upon admission to the ED up to 120's. EKG showing Afrib RVR, rate 118, no ST elevation. Patient then developed several runs of Vtach when HR up to 180's. IV Lopressor and Mag ordered. Heart rate down to 115. No chest pain. Afebrile and normotensive. Leukocytosis noted on lab workup with WBC 15K. Blood cultures collected and pending. 1L NSS given. Zosyn and Vanco given in ED for suspected cellulitis vs possible osteomyelitis. Glucose elevated to 487. Urine + protein and gluc, no ketones. Patient has been taking home insulin as prescribed. On chronic prednisone for PMR. Additional labs showing hyponatremia with Na+ 129, mild SARWAT with slight increased creatinine 1.49, previously 1.41 in August, also noted to have high serum osmolality to 306. Mildly slow to respond to questions on my exam and appeared fatigued. Afebrile at the time of assessment with BSG 350. Reporting significant pain to the left foot at the time and when repositioned and given a drink of water, cognition improved. Family reports the patient has not been sleeping well since foot pain developed. Recent confinement [facility] 08/24-08/29/25 for sepsis due to aspergillosis pneumonia and treated with voriconazole with recommendation for 6 to 12 weeks of treatment. Following this admission, patient was transferred to rehab for 8 days and has been at home with support since then. Patient and family report he has been doing well at home with no concerns and has been compliant with medications. Insulin regimen is fairly new, but he is following the recommendations provided at discharge; he takes long acting insulin daily. As per external chart review, patient was seen by PCP today for left foot pain and swelling. As per today's visit record, foot Xray today showing No acute displaced fracture or dislocation, Vascular calcifications, Enthesophyte at the insertion of the Achilles tendon, Plantar calcaneal spur. Doppler ultrasound of left foot negative for DVT. Currently on voriconazole for fungal pneumonia from 08/24 hospitalization with projected treatment completion the end of October. He has experienced diarrhea with this medication. History obtained primarily from the patient and via hospitalization record. The patient's family was at the bedside and assisted with past medical history, current illness and home medications. External chart review obtained from [facility]. Admission Exam Per Admitting Provider GEN: Healthy appearing, flushed, well-developed, NAD. PSYCH: Good Judgment. AOx3. Normal memory, mood, and affect. HEENT -Head: NC/AT; -Eyes: PERRL, EOMI. No discharge or redness; -Ears: External ears are normal. -Nose: Normal nares. -Mouth and throat: MMM. Normal gums, mucosa, palate,. Good dentition. NECK: Supple, with no masses. CV: Tachycardic to 120's, Afib on ECG monitor, irregular rhythm, unable to appreciate murmur LUNGS: CTAB, no w/r/c. ABD: Soft, NT/ND, NBS, no masses or organomegaly. : N/A SKIN: Warm, well perfused. scabbed lesion to L plantar region of foot MSK: Left foot swelling with erythema and severe tenderness with light palpation, minimal movement and sensation to lle EXT: No clubbing, cyanosis, or edema. NEURO: CN II-XII grossly intact. Speech clear. No focal deficits. Principal Diagnosis Left foot cellulitis Poorly controlled Diabetes mellitus Discharge Exam Constitutional + well hydrated; no acute distress Eyes PERRL, conjunctivae normal, anicteric sclerae ENMT external ear and nose normal, oropharynx normal Respiratory normal respiratory effort, lungs clear to auscultation Cardiovascular Rate/Rhythm: + irregularly irregular Gastrointestinal (Abdomen) normal bowel sounds, soft, nontender, no hepatosplenomegaly Musculoskeletal Left foot erythema improved Neurologic PERRL, EOMI, accommodation nl, no face palsy, no dysarthria Psychiatric A+Ox3, euthymic affect Discharge Data Allergies Allergy/AdvReac Type Severity Reaction Status Date / Time oxycodone Allergy Intermediate WHEEZING, Verified 09/25/25 20:39 maybe trouble breathing Consultations 09/25/25 20:30 ED Decision to Admit Stat 10/02/25 14:38 Consult Podiatry Routine Ordered Studies 09/25/25 22:20 CT foot LT wo con Stat 10/02/25 10:36 MRI Foot [MR foot LT wo/w con] Urgent 10/02/25 11:02 MR ankle LT wo/w con Urgent Hospital Course (1) Cellulitis of foot associated with diabetes mellitus: (2) Pseudohyponatremia: Resolved (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 MRI LE/ankle noted Findings suggestive of great toe cell ulitis with paronychia. Additionally, there is marrow edema involving the first distal phalanx which may represent osteitis versus developing osteomyelitis Patient was evaluated by Podiatry inpatient who noted there was no clinical evidence of osteomyelitis and the MR findings could not correlated clinically Continue apixaban and metoprolol for AFib Patient reported he was on Tresiba 34U daily and aspart 6U AC prior to admission HbA1c from 08/25/25 was 11.5 Currently on increased insulin glargine 30U BID and insulin sliding scale inpatient Better glycemic control now than on admission Discharged on increased Tresiba 30U BID and aspart based on sliding scale Educated patient about medication changes He was discharged to rehab. Rehab will continue to monitor and make adjustments as needed. Rehab to provide patient with final insulin regimen at time of discharge from rehab Patient is on chronic prednisone for PMR Continue voriconazole for recent Aspergillus Pneumonia I called son and updated him on findings and plans Patient was discharged to [facility] Total Time Total Time Spent Total Time Spent (In Minutes): 50 Total Time Includes: Examination of the Patient, Discharge Planning, Medication Reconciliation and Other Discharge Plan Discharge Items Patient Disposition: Transfer Inpatient Rehab Fac Reason For Visit: SEPSIS, WCT Discharge Diagnosis: Left foot cellulitis Poorly controlled Diabetes mellitus Condition on Discharge: Fair Activity: As commented below Activity Comment: Per PT/OT Non-emergency contact: Primary Care Provider Call non-emergency contact if: you have any medication questions and your symptoms worsen Follow-up/Referrals: Artemio Truong, [Primary Care Provider] - Diet: Carb Consistent or DM2 and Heart Healthy Addtl Attending Provider Instructions: Mr Mcpherson You were hospitalized and managed for the above listed diagnoses. You are being discharged to [facility] for [facility]hab. You are being discharged on few more days of antibiotics to complete treatment. At time of discharge to rehab, Your long acting insulin was increased to 30units twice a day and your short acting insulin Novolog was changed to sliding scale. Please ensure the rehab facility provides you the updated doses, more education about any changes to your insulin regimen at time of discharge from rehab. It was a pleasure taking care of you Addtl Newswriter Provider Instructions: DIABETES RECOMMENDATIONS: 1.) Diabetes Medications. - Your Tresiba (long-acting insulin) dose was increased as in medication list at time of discharge to rehab in an effort to help improve/maintain blood sugar levels with in a reasonably safe range. - You need Novolog (rapid-acting insulin) with all meals based on sliding scale -The rehab facility will continue to monitor your blood glucose and make changes to your insulin regimen as needed. Please ensure they provide you with up to date doses/prescriptions of your insulin at time of discharge from rehab - Recommend transitioning back to the standard home insulin pen needles not the safety pen needles to help prevent any difficulty with injections. 2.) Monitoring. - Try to check your blood sugar at least 2x/day to help guide diabetes medication adjustments. - If you end up needing Novolog with all meals, you likely would benefit from a continuous glucose monitor. With a continuous glucose monitor, a sensor is placed on the back of the arm. The sensor is changed every 10-15 days. The sensor automatically checks your blood sugar throughout the day and sends your results to a reader. The device also has alarms to alert you when your blood sugar is getting too low or too high. This additional information is very helpful to safely guide diabetes medication adjustments. - Aim to maintain blood sugar levels below 200 (ideally between 100-160) before meals to support healing/continued recovery. Pending Studies at Discharge: No Stand-Alone Forms: My [facility] Skilled Items Patient informed of condition?: Yes DNR: Yes Discharge Level of Care: Acute rehab Communicable Disease: No Discharge Prognosis: Stable Lines: None Urinary Catheter: No Medications and DC Order Prescriptions: New doxycycline hyclate 100 mg Capsule 100 mg PO BID 5 Days Qty: 10 0RF Continued Mounjaro 2.5 mg/0.5 mL pen injector 2.5 mg subcut WK Patient Comments: Rx Instructions: (DME) lancets [OneTouch Delica Plus Lancet] 33 gauge misc See Rx Instructions .ROUTE Rx Instructions: As directed alendronate [Fosamax] 70 mg Tablet 70 mg PO WK Patient Comments: tuesdays Rx Instructions: TUESDAYS prednisone 5 mg Tablet 5 mg PO BID duloxetine 20 mg Capsule,Delayed Release(Dr/Ec) 20 mg PO QPM voriconazole 200 mg Tablet 200 mg PO BID 70 Days Qty: 140 0RF tramadol 50 mg tablet 50 mg PO Q8H PRN (Reason: Pain) acetaminophen 500 mg Tablet 500 - 1,000 mg PO Q6H PRN (Reason: Pain) cyanocobalamin (vitamin B-12) [Vitamin B-12] 500 mcg Tablet 500 mcg PO DAILY metoprolol tartrate 50 mg tablet 50 mg PO BID folic acid 1 mg Tablet 1 mg PO QAM rosuvastatin 20 mg tablet 20 mg PO QPM cholecalciferol (vitamin D3) [Vitamin D3] 50 mcg (2,000 unit) Capsule 50 mcg PO DAILY Eliquis 2.5 mg tablet 2.5 mg PO BID Changed insulin aspart U-100 [Novolog FlexPen U-100 Insulin] 100 unit/mL (3 mL) insulin pen See Rx Instructions .ROUTE .COMPLEX Qty: 0 0RF Rx Instructions: Use insulin sliding scale insulin degludec [Tresiba FlexTouch U-200] 200 unit/mL (3 mL) Insulin Pen 30 unit SUBCUT BID Qty: 0 0RF Patient Comments: degludec per pt Discontinued cephalexin 500 mg capsule 500 mg PO TID Rx Instructions: for 7 days; not started prescribed today Discharge Orders: Discharge Order (Routine); Ordered 10/03/25 Ordered By: Yee Ramos Admission Data Admit Date/Time: 09/25/25 21:41 Attending Provider: Yee Ramos I. Admit Provider: Rohith Cifuentes Primary Care Provider: Artemio Truong Other Providers: Rohith Cifuentes; [facility]; IRB Approved Study,Tea; [place]; Maurice Aburto; Stephanie Razo Other Interventions: Discharge Summary Assessment (RN) Last Done: 10/03/25 13:34
[2025-10-03] MEDS: DOXYCYCLINE HYCLATE 100 MG CAP PO SCH (13:21)
== END 2025-10-03 14:37 | DRG 602 ==
LOC: ED 18:20 → SUATTDRO 21:41 → 2S 21:41 → 2N 09-26 22:25 → 3W 09-29 19:00